=== PATIENT | male | born 1965 | race Caucasian/White ===

== ENCOUNTER 2019-05-28 20:58 | Emergency (ER) | payer OTHER ==
[~2019-05-28] VITALS: Ht 188 cm; Wt 116.1 kg
--- OUTSIDE RECORDS SUMMARY | 2019-05-28 21:07 | XMS REPORT ---
Author [facility] Address Unknown Phone Unavailable Care Team Providers Care Instructional Systems Specialist Name Role Phone ADRIANA HERNANDEZ Unavailable Unavailable BROOKS AMES Unavailable Unavailable OLI CASTELAN Unavailable Unavailable ИРИНА LOPEZ Unavailable Unavailable Chiquita GANDARA Unavailable Unavailable JUAN BHAT Unavailable Unavailable TENORIOTOD KUMAR Unavailable Unavailable CRISTINATROY BANDAR Unavailable Unavailable SHELLEY, ADEDOYIN Unavailable Unavailable THERON, ARIF Unavailable Unavailable JEANETTE DE LA GARZA Unavailable Unavailable Emeli NORTH Unavailable Unavailable RACHEL CORREA Unavailable Unavailable CATHERINE FRANCISCO Unavailable Unavailable Payers Payer Name Policy Type Policy Number Effective Date Expiration Date Problems This patient has no known problems. Allergies, Adverse Reactions, Alerts Allergy Name Allergy Type Status Severity Reaction(s) Onset Date Inactive Date Treating Clinician Comments No Known Allergies DA Active U 2018-04-07 00:00:00 No Known Allergies DA Active U 2018-01-18 00:00:00 Medications This patient has no known medications. Results Test Description Test Time Test Comments Text Results Atomic Results Result Comments BODY FLUID CELL COUNT WITH DIFFERENTIAL 2019-05-26 13:34:00 APPEARANCE FLUID (BEAKER) (test zvwi=277) Hazy Clear COLOR FLUID (BEAKER) (test eavz=230) Yellow Colorless, Straw RBC FLUID (BEAKER) (test sixy=353) 458 /cu mm <=1 ADJUSTED WBC FLUID (BEAKER) (test cevq=4574) 30 /cu mm <=5 LINING CELLS (BEAKER) (test odgn=3990) 0 /cu mm <=1 NEUTROPHILS FLUID (BEAKER) (test vtkw=3328) 2 % LYMPHS FLUID (BEAKER) (test topz=530) 15 % MONO/MACROPHAGE FLUID (BEAKER) (test majm=538) 83 % EOSINOPHILS FLUID (BEAKER) (test jupq=593) 0 % BASO FLUID (BEAKER) (test pqcz=724) 0 % CONTAINER BODY FLUID (BEAKER) (test gsez=0858) EDTA Tube U/S, [id number] 10:31:00LIMIT PARACENTESIS to 5 LITERSAdminister 200 mL of albumin 25% (50 grams) IV x1 after paracentesis if 3 or more liters removed.Send ascitic fluid for cell count and differential.Labs to be ordered:-> Other (please add comment)Reason for Exam:->AscitesFINAL REPORT Ultrasound guided paracentesis. Clinical History: Ascites. Sedation: None. Taxi Driver: Anabel Thornton PA-C Turner And Former Automatic: None. Estimated Blood Loss: < 1 cc. Specimen: 5000 cc of clear yellow fluid, samples sent to laboratory. Technique: Informed consent was obtained. The risks of pain, bleeding, infection, bowel perforation, injury to adjacent structures, and adverse medication reactions were discussed with the patient. After informed consent was obtained, the patient's abdomen was scanned. The RLQ of the abdomen was selected for paracentesis. After the largest fluid pocket area was marked, and the anterior abdominal wall was evaluated with color Doppler to exclude presence of blood vessels traversing the area, the skin was prepped and draped in the usual sterile manner. After local anesthesia was achieved with 2% lidocaine, a 5 Maldivian one-step catheter was advanced into the peritoneal cavity under ultrasound guidance. After completion of drainage, the catheter was removed. There was no evidence of complication. Impression:Successful ultrasound guided paracentesis. Signed: Timbo Reilly Verified Date/Time: 05/26/2019 10:31:09 Reading Location: [address] Ultrasound Reading Room FLUID CELL COUNT WITH [id number] 14:02:00* Test Item Value Reference Range Comments APPEARANCE FLUID (BEAKER) (test jlxf=017) Hazy Clear COLOR FLUID (BEAKER) (test wxuq=804) Yellow Colorless, Straw RBC FLUID (BEAKER) (test eiiz=057) 2210 /cu mm <=1 ADJUSTED WBC FLUID (BEAKER) (test haut=6190) 83 /cu mm <=5 LINING CELLS (BEAKER) (test mcmu=2784) 2 /cu mm <=1 NEUTROPHILS FLUID (BEAKER) (test jrbe=2865) 4 % LYMPHS FLUID (BEAKER) (test ipri=953) 16 % MONO/MACROPHAGE FLUID (BEAKER) (test gyqn=849) 80 % EOSINOPHILS FLUID (BEAKER) (test dvcy=779) 0 % BASO FLUID (BEAKER) (test kefx=856) 0 % CONTAINER BODY FLUID (BEAKER) (test xqze=7179) EDTA Tube U/S, [id number] 11:16:00LIMIT PARACENTESIS to 5 LITERSAdminister 200 mL of albumin 25% (50 grams) IV x1 after paracentesis if 3 or more liters removed.Send ascitic fluid for cell count and differential.Labs to be ordered:-> Other (please add comment)Reason for Exam:->AscitesFINAL REPORT Ultrasound guided paracentesis. Clinical History: Ascites. Sedation: None. Taxi Driver: Anabel Thornton PA-C Turner And Former Automatic: None. Estimated Blood Loss: < 1 cc. Specimen: 5000 cc of clear yellow fluid, samples sent to laboratory. Technique: Informed consent was obtained. The risks of pain, bleeding, infection, bowel perforation, injury to adjacent structures, and adverse medication reactions were discussed with the patient. After informed consent was obtained, the patient's abdomen was scanned. The RLQ of the abdomen was selected for paracentesis. After the largest fluid pocket area was marked, and the anterior abdominal wall was evaluated with color Doppler to exclude presence of blood vessels traversing the area, the skin was prepped and draped in the usual sterile manner. After local anesthesia was achieved with 2% lidocaine, a 5 Maldivian one-step catheter was advanced into the peritoneal cavity under ultrasound guidance. After completion of drainage, the catheter was removed. There was no evidence of complication. Impression:Successful ultrasound guided paracentesis. Signed: David Hernandesort Verified Date/Time: 05/23/2019 11:16:28 Reading Location: [address] Ultrasound Reading Room U/S, [id number] 13:40:00LIMIT PARACENTESIS to 5 LITERSAdminister 200 mL of albumin 25% (50 grams) IV x1 after paracentesis if 3 or more liters removed.Send ascitic fluid for cell count and differential.Labs to be ordered:-> Other (please add comment)Reason for Exam:->Malignant NeoplasmFINAL REPORT Ultrasound guided paracentesis. Clinical History: Ascites. Sedation: None. Operators: This procedure was performed by LAURENCE Colin under direct supervision of Dionicio Song M.D. Estimated Blood Loss: < 1 cc. Specimen: 5000 cc of cloudy yellow fluid, samples sent to laboratory. Technique: Informed consent was obtained. The risks of pain, bleeding, infection, bowel perforation, injury to adjacent structures, and adverse medication reactions were discussed with the patient. After informed consent was obtained, the patient's abdomen was scanned. The RLQ of the abdomen was selected for paracentesis. After the largest fluid pocket area was marked, and the anterior abdominal wall was evaluated with color Doppler to exclude presence of blood vessels traversing the area, the skin was prepped and draped in the usual sterile manner. After local anesthesia was achieved with 2% lidocaine, a 5 Maldivian one-step catheter was advanced into the peritoneal cavity under ultrasound guidance. After completion of drainage, the catheter was removed. There was no evidence of complication. Impression:Successful ultrasound guided paracentesis. Signed: Dionicio Song MDReport Verified Date/Time: 05/19/2019 13:40:25 Reading Location: [address] Ultrasound Reading Room FLUID CELL COUNT WITH [id number] 13:32:00* Test Item Value Reference Range Comments APPEARANCE FLUID (BEAKER) (test hobr=623) Slightly Cloudy Clear COLOR FLUID (BEAKER) (test dbgp=196) [place] Colorless, Straw RBC FLUID (BEAKER) (test hham=988) 5000 /cu mm <=1 ADJUSTED WBC FLUID (BEAKER) (test gsds=3177) 88 /cu mm <=5 LINING CELLS (BEAKER) (test lpyi=2611) 0 /cu mm <=1 NEUTROPHILS FLUID (BEAKER) (test ctuz=1819) 0 % LYMPHS FLUID (BEAKER) (test ffvq=453) 24 % MONO/MACROPHAGE FLUID (BEAKER) (test wqsn=508) 75 % EOSINOPHILS FLUID (BEAKER) (test zdof=123) 0 % BASO FLUID (BEAKER) (test bbdm=227) 1 % CONTAINER BODY FLUID (BEAKER) (test sxgo=0103) EDTA Tube U/S, [id number] 00:41:00LIMIT PARACENTESIS to 5 LITERSAdminister 200 mL of albumin 25% (50 grams) IV x1 after paracentesis if 3 or more liters removed.Send ascitic fluid for cell count and differential.Labs to be ordered:-> Other (please add comment)Reason for Exam:->Malignant NeoplasmFINAL REPORT Ultrasound guided paracentesis Clinical History: Ascites. Sedation: None. Taxi Driver: Sharon Troy PA-C Supervising Physician: Timothy Kelly MD Turner And Former Automatic: None. Estimated Blood Loss: < 1 mL. Specimen: 5000 mL of serosanguineous fluid, samples sent to laboratory. Technique: Informed consent was obtained. The risks of pain, bleeding, infection, bowel perforation, injury to adjacent structures, and adverse medication reactions were discussed with the patient. After informed consent was obtained, the patient's abdomen was scanned. The right lower quadrant of the abdomen was selected for paracentesis. After the largest fluid pocket area was marked, and the anterior abdominal wall was evaluated with color Doppler to exclude presence of blood vessels traversing the area, the skin was prepped and draped in the usual sterile manner. After local anesthesia was achieved with lidocaine, a 5 Maldivian one-step catheter was advanced into the peritoneal cavity under ultrasound guidance. After completion of drainage, the catheter was removed. There was no evidence of complication. This procedure was performed by LAURENCE Condon under direct supervision of Timothy Kelly M.D. Impression:Successful ultrasound guided paracentesis. Signed: Timothy Kelly MDReport Verified Date/Time: 05/17/2019 00:41:29 Reading Location: [facility] [id number] Ultrasound Reading Room U/S, [id number] 00:39:00LIMIT PARACENTESIS to 5 LITERSAdminister 200 mL of albumin 25% (50 grams) IV x1 after paracentesis if 3 or more liters removed.Send ascitic fluid for cell count and differential.Labs to be ordered:->Other (please add comment)Reason for Exam:->Malignant Neoplasm FINAL REPORT Ultrasound guided paracentesis. Clinical His tory: Ascites. Sedation: None. Taxi Driver: Anabel Gu Turner And Former Automatic: None. Estimated Blood Loss: < 1 cc. Specimen: 5000 cc of clear orange fluid, samples sent to laboratory. Technique: Informed consent was obtained. The risks of pain, bleeding, infection, bowel perforation, injury to adjacent structures, and adverse medication reactions were discussed with the patient. After informed consent was obtained, the patient's abdomen was scanned. The RLQ of the abdomen was selected for paracentesis. After the largest fluid pocket area was marked, and the anterior abdominal wall was evaluated with color Doppler to exclude presence of blood vessels traversing the area, the skin was prepped and draped in the usual sterile manner. After local anesthesia was achieved with 2% lidocaine, a 4 Maldivian one-step catheter was advanced into the peritoneal cavity under ultrasound guidance. After completion of drainage, the catheter was removed. There was no evidence of complication. This procedure was performed by LAURENCE Colin under direct supervision of Timothy Kelly M.D. Impression:Successful ultrasound guided paracentesis. Si gned: Timothy Kelly MDReport Verified Date/Time: 05/17/2019 00:39:11 Reading Location: [place] [id number] Ultrasound Reading Room FLUID CELL COUNT WITH [id number] 11:32:00* Test Item Value Reference Range Comments APPEARANCE FLUID (BEAKER) (test ifol=428) Hazy Clear COLOR FLUID (BEAKER) (test ohhl=218) Yellow Colorless, Straw RBC FLUID (BEAKER) (test wpbx=019) 8000 /cu mm <=1 ADJUSTED WBC FLUID (BEAKER) (test ynjd=3578) 51 /cu mm <=5 LINING CELLS (BEAKER) (test xkwx=5147) 7 /cu mm <=1 NEUTROPHILS FLUID (BEAKER) (test sewr=6293) 5 % LYMPHS FLUID (BEAKER) (test uxrp=405) 33 % MONO/MACROPHAGE FLUID (BEAKER) (test lken=127) 61 % EOSINOPHILS FLUID (BEAKER) (test tycz=066) 1 % BASO FLUID (BEAKER) (test jccb=417) 0 % CONTAINER BODY FLUID (BEAKER) (test lvge=0810) EDTA Tube BODY FLUID CELL COUNT WITH [id number] 14:54:00* Test Item Value Reference Range Comments APPEARANCE FLUID (BEAKER) (test jzpg=811) Cloudy Clear COLOR FLUID (BEAKER) (test gzzi=835) Red Colorless, Straw RBC FLUID (BEAKER) (test kmfm=805) 45758 /cu mm <=1 ADJUSTED WBC FLUID (BEAKER) (test rzyj=2910) 116 /cu mm <=5 LINING CELLS (BEAKER) (test svlu=2674) 2 /cu mm <=1 NEUTROPHILS FLUID (BEAKER) (test dqrv=4127) 1 % LYMPHS FLUID (BEAKER) (test erwa=816) 19 % MONO/MACROPHAGE FLUID (BEAKER) (test zrlg=522) 80 % EOSINOPHILS FLUID (BEAKER) (test qvnb=501) 0 % BASO FLUID (BEAKER) (test fctq=852) 0 % CONTAINER BODY FLUID (BEAKER) (test ywxp=5200) EDTA Tube BODY FLUID CULTURE + GRAM [id number] 10:44:00* Test Item Value Reference Range Comments CULTURE (BEAKER) (test kuyk=2539) No growth GRAM STAIN RESULT (BEAKER) (test jfwn=1356) <1+ White blood cells seen GRAM STAIN RESULT (BEAKER) (test aatl=40111) No organisms seen BODY FLUID CELL COUNT WITH [id number] 14:48:00* Test Item Value Reference Range Comments APPEARANCE FLUID (BEAKER) (test tzrj=054) Cloudy Clear COLOR FLUID (BEAKER) (test egsz=994) Red Colorless, Straw RBC FLUID (BEAKER) (test cnrd=364) 55066 /cu mm <=1 ADJUSTED WBC FLUID (BEAKER) (test afjx=3110) 61 /cu mm <=5 LINING CELLS (BEAKER) (test ivev=4267) 0 /cu mm <=1 NEUTROPHILS FLUID (BEAKER) (test gaod=7418) 2 % LYMPHS FLUID (BEAKER) (test bspd=120) 56 % MONO/MACROPHAGE FLUID (BEAKER) (test muoz=584) 42 % EOSINOPHILS FLUID (BEAKER) (test fyqe=669) 0 % BASO FLUID (BEAKER) (test xljy=302) 0 % CONTAINER BODY FLUID (BEAKER) (test pdzo=8543) EDTA Tube U/S, [id number] 14:01:00LIMIT PARACENTESIS to 5 LITERSAdminister 200 mL of albumin 25% (50 grams) IV x1 after paracentesis if 3 or more liters removed.Send ascitic fluid for cell count and differential.Labs to be ordered:-> Other (please add comment)Reason for Exam:->Malignant NeoplasmFINAL REPORT Ultrasound guided paracentesis. Clinical History: Ascites. Sedation: None. Taxi Driver: Anabel Thornton PA-C Turner And Former Automatic: None. Estimated Blood Loss: < 1 cc. Specimen: 5000 cc of samreen fluid, samples sent to laboratory. Technique: Informed consent was obtained. The risks of pain, bleeding, infection, bowel perforation, injury to adjacent structures, and adverse medication reactions were discussed with the patient. After informed consent was obtained, the patient's abdomen was scanned. The RLQ of the abdomen was selected for paracentesis. After the largest fluid pocket area was marked, and the anterior abdominal wall was evaluated with color Doppler to exclude presence of blood vessels traversing the area, the skin was prepped and draped in the usual sterile manner. After local anesthesia was achieved with 2% lidocaine, a 5 Maldivian one-step catheter was advanced into the peritoneal cavity under ultrasound guidance. After completion of drainage, the catheter was removed. There was no evidence of complication. Im pression:Successful ultrasound guided paracentesis. Signed: Damion Holtep ort Verified Date/Time: 05/09/2019 14:01:34 Reading Location: [address] Reading Room Electronically signed by: DAMION HOLT M.D. on 05/09 02:01 PM BLOOD [id number] 19:01:00* Test Item Value Reference Range Comments CULTURE (BEAKER) (test hekm=1265) No growth in 5 days BLOOD [id number] 19:01:00* Test Item Value Reference Range Comments CULTURE (BEAKER) (test nusq=6054) No growth in 5 days [id number] 19:17:00Medical Cytology Report Case: [id number] Authorizing Provider: Osiris Rangel MD Collected: 05/06/2019 1543 Ordering Location: [address] Received: 05/07/2019 0824 Service Pathologist: Yesica John MD Specimen: Peritoneal Fluid PERITONEAL FLUID (CYTOSPINS): - NEGATIVE FOR MALIGNANCY Signing Pathologist Direct Phone Line: [phone] signed by Yesica John MD on 05/07/2019 at 7:17 [id number], Hep BPERITONEAL [id number] mls bloody; 4 cytospinsCollected: [id number]: [id number] [facility], Department of Pathology, [address] [place] [address], [facility], [address] [place] [address], [facility], [facility], [address] [place] [address], J/S, [id number] 08:35:00Labs to be ordered:->CytologyLabs to be ordered:->Body Fluid Culture (w/Gram Stain, C\\T\\S)Labs to be ordered:->Glucose+LDH+ProteinReason for exam:-> therapeuticFINAL REPORT Ultrasound guided paracentesis. Clinical History: Ascites. Sedation: None. Taxi Driver: Anabel Thornton PA-C Turner And Former Automatic: None. Estimated Blood Loss: < 1 cc. Specimen: 5000 cc of clear yellow fluid, samples sent to laboratory. Technique: Informed consent was obtained. The risks of pain, bleeding, infection, bowel perforation, injury to adjacent structures, and adverse medication reactions were discussed with the patient. After informed consent was obtained, the mila bird's abdomen was scanned. The RLQ of the abdomen was selected for paracente sis. After the largest fluid pocket area was marked, and the anterior abdominal wall was evaluated with color Doppler to exclude presence of blood vessels gurmeet ersing the area, the skin was prepped and draped in the usual sterile manner. A fter local anesthesia was achieved with 2% lidocaine, a 5 Maldivian one-step cathet er was advanced into the peritoneal cavity under ultrasound guidance. After comp letion of drainage, the catheter was removed. There was no evidence of complicat ion. Impression:Successful ultrasound guided paracentesis. Signed: David Hernandes MDReport Verified Date/Time: 05/07/2019 08:35:06 Reading Location: [address] Ultrasound Reading Room FLUID CELL COUNT WITH [id number] 19:43:00* Test Item Value Reference Range Comments APPEARANCE FLUID (BEAKER) (test dmrr=781) Bloody Clear COLOR FLUID (BEAKER) (test dhqo=139) Red Colorless, Straw RBC FLUID (BEAKER) (test vsdr=196) 18142 /cu mm <=1 ADJUSTED WBC FLUID (BEAKER) (test pozv=9315) 235 /cu mm <=5 LINING CELLS (BEAKER) (test zcnm=6364) 0 /cu mm <=1 NEUTROPHILS FLUID (BEAKER) (test vuev=3110) 5 % LYMPHS FLUID (BEAKER) (test poqa=663) 11 % MONO/MACROPHAGE FLUID (BEAKER) (test ihya=605) 83 % EOSINOPHILS FLUID (BEAKER) (test fxfe=204) 1 % BASO FLUID (BEAKER) (test fqkq=111) 0 % CONTAINER BODY FLUID (BEAKER) (test ybnr=6149) EDTA Tube SODIUM, RANDOM [id number] 17:19:00* Test Item Value Reference Range Comments SODIUM URINE (BEAKER) (test dtmv=525) < meq/L Reference Range: No NormalsCREATININE, RANDOM [id number] 17:17:00* Test Item Value Reference Range Comments CREATININE URINE (BEAKER) (test tplu=489) 68.5 mg/dL Reference Range: No NormalsU/S, ABDOMINAL, WITH [id number] 17:07:00Reason for exam:->r/o PVTFINAL REPORT HISTORY : Cirrhosis COMPARISON : CT abdomen/pelvis without contrast from 05/03/2019, abdominal ultrasound from 12/13/2018 COMMENT :Complete ultrasound examination of the abdomen with color Doppler and spectral evaluation of the abdominal vasculature was performed. The pancreas is not well-visualized secondary to prominent adjacent bowel gas. The liver measures 15.6 cm and demonstrates a nodular contour compatible with patient's history of cirrhosis. The hepatic parenchyma is heterogeneous. No focal hepatic abnormality is identified. The gallbladder appears contracted. There is no evidence for shadowing stones, gallbladder wall thickening, or pericholecystic fluid. There is no intrahepatic biliary ductal dilatation. There is a prominence of the common bile duct measuring up to 9 mm, unchanged from prior examinations. The spleen is enlarged measuring 14.2 cm in length and demonstrates unremarkable sonographic appearance. The kidneys are normal in size measuring 9.9 cm in length on the right and 12.3 cm in length on the left. Cortical thickness and echogenicity are within normal limits. There is no evidence for solid renal mass, hydronephrosis, or shadowing calculi. There is a small volume of residual ascites present status post recent paracentesis. Vascular:The main portal vein is patent with antegrade flow and diameter of 1.5 cm. Peak systolic velocity is 21.1 cm/s. The right left portal veins are patent with antegrade flow. The proper hepatic artery is patent with resistive index of zero right left hepatic arteries are patent with resistive indices of 0.7 bilaterally. The IVC is patent and unremarkable. The middle, right, left hepatic veins are patent and unremarkable. The visualized portions of the splenic artery and vein are patent. The aorta tapers normally. IMPRESSION : 1. Sonographic findings compatible with cirrhosis and sequela of portal hypertension. No focal hepatic abnormality identified. 2. Patent hepatic vasculature. 3. Small volume residual ascites remaining status post recent paracentesis. Signed: Dionicio Song MDReport Verified Date/Time: 05/06/2019 17:07:25 Reading Location: [address] Radiology Reading Room FLUID CULTURE + GRAM [id number] 11:14:00* Test Item Value Reference Range Comments CULTURE (BEAKER) (test ullb=1588) No growth GRAM STAIN RESULT (BEAKER) (test hbtl=7507) <1+ White blood cells seen GRAM STAIN RESULT (BEAKER) (test ubty=13491) No organisms seen BODY FLUID CULTURE + GRAM [id number] 11:13:00* Test Item Value Reference Range Comments CULTURE (BEAKER) (test cimv=0145) No growth GRAM STAIN RESULT (BEAKER) (test mjji=2385) <1+ White blood cells seen GRAM STAIN RESULT (BEAKER) (test rczd=20727) No organisms seen HEPATITIS B PCR, [id number] 09:38:00* Test Item Value Reference Range Comments HBV RESULT COMPONENT (BEAKER) (test qtuy=4617) Less than 20 IU/mL HBV DNA detected HBV DNA not detected This test uses a Real-Time Polymerase Chain Reaction (RT-PCR) methodology and wa s performed using [employer] AmpliPrep/W[employer]LEY TaqMan HBV Test, v2.0 ([employer]Reportable range for this assay is 20 - 170,000,000 IU per mL ( 1.30 - 8.23 Log IU/mL).BASIC METABOLIC [id number] 05:18:00* Test Item Value Reference Range Comments SODIUM (BEAKER) (test qifb=887) 130 meq/L 136-145 POTASSIUM (BEAKER) (test xpqp=535) 3.8 meq/L 3.5-5.1 CHLORIDE (BEAKER) (test asgd=358) 101 meq/L 98-107 CO2 (BEAKER) (test ccbf=592) 21 meq/L 22-29 BLOOD UREA NITROGEN (BEAKER) (test tnxo=913) 74 mg/dL 7-21 CREATININE (BEAKER) (test sfry=539) 3.33 mg/dL 0.57-1.25 GLUCOSE RANDOM (BEAKER) (test fijs=454) 156 mg/dL 70-105 CALCIUM (BEAKER) (test mttl=602) 8.1 mg/dL 8.4-10.2 EGFR (BEAKER) (test erib=9072) 20 mL/min/1.73 sq m ESTIMATED GFR IS NOT ACCURATE CREATININE CLEARANCE IN PREDICTING GLOMERULAR FILTRATION RATE. ESTIMATED GFR IS NOT APPLICABLE FOR DIALYSIS PATIENTS. CBC W/PLT COUNT & AUTO [id number] 05:17:00* Test Item Value Reference Range Comments WHITE BLOOD CELL COUNT (BEAKER) (test iqnt=820) 3.1 K/ L 3.5-10.5 RED BLOOD CELL COUNT (BEAKER) (test wbjn=689) 2.19 M/ L 4.63-6.08 HEMOGLOBIN (BEAKER) (test kizd=416) 6.8 GM/DL 13.7-17.5 HEMATOCRIT (BEAKER) (test dkhe=315) 20.5 % 40.1-51.0 MEAN CORPUSCULAR VOLUME (BEAKER) (test dgie=806) 93.6 fL 79.0-92.2 MEAN CORPUSCULAR HEMOGLOBIN (BEAKER) (test fvam=969) 31.1 pg 25.7-32.2 MEAN CORPUSCULAR HEMOGLOBIN CONC (BEAKER) (test uqua=185) 33.2 GM/DL 32.3-36.5 RED CELL DISTRIBUTION WIDTH (BEAKER) (test auzu=417) 15.9 % 11.6-14.4 PLATELET COUNT (BEAKER) (test zkhq=590) 56 K/CU MM 150-450 MEAN PLATELET VOLUME (BEAKER) (test xsjo=971) 9.9 fL 9.4-12.4 NUCLEATED RED BLOOD CELLS (BEAKER) (test qjqe=670) 0 /100 WBC 0-0 NEUTROPHILS RELATIVE PERCENT (BEAKER) (test nawo=624) 75 % LYMPHOCYTES RELATIVE PERCENT (BEAKER) (test hfte=385) 8 % MONOCYTES RELATIVE PERCENT (BEAKER) (test itfk=972) 9 % EOSINOPHILS RELATIVE PERCENT (BEAKER) (test tfrp=051) 7 % BASOPHILS RELATIVE PERCENT (BEAKER) (test yibe=131) 0 % NEUTROPHILS ABSOLUTE COUNT (BEAKER) (test wsph=367) 2.29 K/ L 1.78-5.38 LYMPHOCYTES ABSOLUTE COUNT (BEAKER) (test zfve=899) 0.25 K/ L 1.32-3.57 MONOCYTES ABSOLUTE COUNT (BEAKER) (test zmze=855) 0.27 K/ L 0.30-0.82 EOSINOPHILS ABSOLUTE COUNT (BEAKER) (test gnit=981) 0.22 K/ L 0.04-0.54 BASOPHILS ABSOLUTE COUNT (BEAKER) (test utvj=249) 0.01 K/ L 0.01-0.08 IMMATURE GRANULOCYTES-RELATIVE PERCENT (BEAKER) (test expt=8561) 1 % 0-1 [id number] 05:12:00* Test Item Value Reference Range Comments MAGNESIUM (BEAKER) (test wgwq=380) 2.3 mg/dL 1.6-2.6 HEPATIC FUNCTION [id number] 05:12:00* Test Item Value Reference Range Comments TOTAL PROTEIN (BEAKER) (test iqwl=226) 6.0 gm/dL 6.0-8.3 ALBUMIN (BEAKER) (test ftok=8971) 3.3 g/dL 3.5-5.0 BILIRUBIN TOTAL (BEAKER) (test zwhk=364) 0.8 mg/dL 0.2-1.2 BILIRUBIN DIRECT (BEAKER) (test qdrk=408) 0.6 mg/dL 0.1-0.5 ALKALINE PHOSPHATASE (BEAKER) (test rjgu=592) 161 U/L 40-150 AST (SGOT) (BEAKER) (test dnss=873) 17 U/L 5-34 ALT (SGPT) (BEAKER) (test cvwu=574) 12 U/L 6-55 PT/[id number] 04:57:00* Test Item Value Reference Range Comments PROTIME (BEAKER) (test hqxx=896) 15.3 seconds 11.9-14.2 INR (BEAKER) (test nytn=995) 1.3 <=5.9 PARTIAL THROMBOPLASTIN TIME (BEAKER) (test eowp=122) 36.1 seconds 22.5-36.0 Effective 11/20/2018: PT Reference Range ChangeNew: 11.9-14.2 Previous: 11.7-14. 7RECOMMENDED COUMADIN/WARFARIN INR THERAPY RANGESSTANDARD DOSE: 2.0-3.0 Include s: PROPHYLAXIS for venous thrombosis, systemic embolization; TREATMENT for venou s thrombosis and/or pulmonary embolus.HIGH RISK: Target INR is 2.5-3.5 for patie nts wiht mechanical heart valves.PROTHROMBIN TIME/[id number] 04:56:00* Test Item Value Reference Range Comments PROTIME (BEAKER) (test yuqa=359) 15.3 seconds 11.9-14.2 INR (BEAKER) (test nkrx=510) 1.3 <=5.9 Effective 11/20/2018: PT Reference Range ChangeNew: 11.9-14.2 Previous: 11.7-14. 7RECOMMENDED COUMADIN/WARFARIN INR THERAPY RANGESSTANDARD DOSE: 2.0-3.0 Include s: PROPHYLAXIS for venous thrombosis, systemic embolization; TREATMENT for venou s thrombosis and/or pulmonary embolus.HIGH RISK: Target INR is 2.5-3.5 for patie nts wiht mechanical heart valves.FUNGUS CULTURE + [id number] 16:35:00* Test Item Value Reference Range Comments CULTURE (BEAKER) (test pglq=4330) No fungus isolated in 28 days FUNGUS SMEAR (BEAKER) (test nltg=3020) No fungi seen CBC W/PLT COUNT & AUTO [id number] 06:05:00* Test Item Value Reference Range Comments WHITE BLOOD CELL COUNT (BEAKER) (test ynmb=781) 3.1 K/ L 3.5-10.5 RED BLOOD CELL COUNT (BEAKER) (test aukj=184) 2.38 M/ L 4.63-6.08 HEMOGLOBIN (BEAKER) (test wzld=545) 7.3 GM/DL 13.7-17.5 HEMATOCRIT (BEAKER) (test rqko=406) 21.8 % 40.1-51.0 MEAN CORPUSCULAR VOLUME (BEAKER) (test zmjb=800) 91.6 fL 79.0-92.2 MEAN CORPUSCULAR HEMOGLOBIN (BEAKER) (test hjrm=676) 30.7 pg 25.7-32.2 MEAN CORPUSCULAR HEMOGLOBIN CONC (BEAKER) (test nafp=603) 33.5 GM/DL 32.3-36.5 RED CELL DISTRIBUTION WIDTH (BEAKER) (test xivc=909) 16.0 % 11.6-14.4 PLATELET COUNT (BEAKER) (test xmzf=823) 62 K/CU MM 150-450 MEAN PLATELET VOLUME (BEAKER) (test nfvi=436) 9.8 fL 9.4-12.4 NUCLEATED RED BLOOD CELLS (BEAKER) (test xuyg=007) 0 /100 WBC 0-0 NEUTROPHILS RELATIVE PERCENT (BEAKER) (test upaj=301) 77 % LYMPHOCYTES RELATIVE PERCENT (BEAKER) (test hatw=388) 9 % MONOCYTES RELATIVE PERCENT (BEAKER) (test deey=257) 9 % EOSINOPHILS RELATIVE PERCENT (BEAKER) (test ffhl=355) 4 % BASOPHILS RELATIVE PERCENT (BEAKER) (test favv=793) 1 % NEUTROPHILS ABSOLUTE COUNT (BEAKER) (test cbhg=093) 2.38 K/ L 1.78-5.38 LYMPHOCYTES ABSOLUTE COUNT (BEAKER) (test uwcl=027) 0.28 K/ L 1.32-3.57 MONOCYTES ABSOLUTE COUNT (BEAKER) (test nvpx=041) 0.28 K/ L 0.30-0.82 EOSINOPHILS ABSOLUTE COUNT (BEAKER) (test qydx=534) 0.13 K/ L 0.04-0.54 BASOPHILS ABSOLUTE COUNT (BEAKER) (test cpvd=619) 0.02 K/ L 0.01-0.08 IMMATURE GRANULOCYTES-RELATIVE PERCENT (BEAKER) (test hnis=0427) 0 % 0-1 BASIC METABOLIC [id number] 05:44:00* Test Item Value Reference Range Comments SODIUM (BEAKER) (test zjna=510) 134 meq/L 136-145 POTASSIUM (BEAKER) (test eztq=529) 3.6 meq/L 3.5-5.1 CHLORIDE (BEAKER) (test iprv=759) 103 meq/L 98-107 CO2 (BEAKER) (test ckna=627) 21 meq/L 22-29 BLOOD UREA NITROGEN (BEAKER) (test tgji=491) 70 mg/dL 7-21 CREATININE (BEAKER) (test bptw=194) 3.13 mg/dL 0.57-1.25 GLUCOSE RANDOM (BEAKER) (test yteb=754) 134 mg/dL 70-105 CALCIUM (BEAKER) (test dulb=167) 8.6 mg/dL 8.4-10.2 EGFR (BEAKER) (test vtkh=9315) 21 mL/min/1.73 sq m ESTIMATED GFR IS NOT ACCURATE CREATININE CLEARANCE IN PREDICTING GLOMERULAR FILTRATION RATE. ESTIMATED GFR IS NOT APPLICABLE FOR DIALYSIS PATIENTS. [id number] 05:40:00* Test Item Value Reference Range Comments MAGNESIUM (BEAKER) (test fvaz=786) 2.3 mg/dL 1.6-2.6 HEPATIC FUNCTION [id number] 05:40:00* Test Item Value Reference Range Comments TOTAL PROTEIN (BEAKER) (test ihjl=626) 6.3 gm/dL 6.0-8.3 ALBUMIN (BEAKER) (test eddt=6023) 3.6 g/dL 3.5-5.0 BILIRUBIN TOTAL (BEAKER) (test owio=133) 1.0 mg/dL 0.2-1.2 BILIRUBIN DIRECT (BEAKER) (test zamk=110) 0.6 mg/dL 0.1-0.5 ALKALINE PHOSPHATASE (BEAKER) (test dntj=864) 164 U/L 40-150 AST (SGOT) (BEAKER) (test vkif=690) 18 U/L 5-34 ALT (SGPT) (BEAKER) (test rseo=006) 12 U/L 6-55 HBSAG [id number] 22:12:00* Test Item Value Reference Range Comments HBSAG CONFIRMATION (BEAKER) (test rofo=0737) Confirmed Positive Unconfirmed, HBSAG Negative HEPATITIS B SURFACE [id number] 21:24:00* Test Item Value Reference Range Comments HEPATITIS B SURFACE ANTIGEN (2) (BEAKER) (test garr=9725) Reactive Nonreactive HEPATITIS B SURFACE [id number] 18:32:00* Test Item Value Reference Range Comments HEPATITIS B SURFACE ANTIBODY (BEAKER) (test zhlt=258) < mIU/mL <8.0 HEMOGLOBIN AND [id number] 15:40:00* Test Item Value Reference Range Comments HEMOGLOBIN (BEAKER) (test spdv=876) 7.1 GM/DL 13.7-17.5 HEMATOCRIT (BEAKER) (test htrh=243) 21.2 % 40.1-51.0 URINALYSIS W/ REFLEX URINE [id number] 15:38:00* Test Item Value Reference Range Comments COLOR (BEAKER) (test xubu=754) Yellow CLARITY (BEAKER) (test hnba=195) Clear SPECIFIC GRAVITY UA (BEAKER) (test wcqe=798) 1.013 1.001-1.035 PH UA (BEAKER) (test thks=928) 5.0 5.0-8.0 PROTEIN UA (BEAKER) (test utqt=771) Negative Negative GLUCOSE UA (BEAKER) (test hcbh=931) Negative Negative KETONES UA (BEAKER) (test trwc=420) Negative Negative BILIRUBIN UA (BEAKER) (test iqey=106) Negative Negative BLOOD UA (BEAKER) (test xmct=754) Negative Negative NITRITE UA (BEAKER) (test neou=706) Negative Negative LEUKOCYTE ESTERASE UA (BEAKER) (test vntj=316) Negative Negative UROBILINOGEN UA (BEAKER) (test hohp=511) 0.2 mg/dL 0.2-1.0 RBC UA (BEAKER) (test ahfh=565) 0 /HPF WBC UA (BEAKER) (test ohue=679) 1 /HPF SQUAMOUS EPITHELIAL (BEAKER) (test umdg=188) < /HPF HYALINE CASTS (BEAKER) (test dwfu=929) 3 /LPF CALCIUM OXALATE CRYSTALS (BEAKER) (test skos=089) Rare SOURCE(BEAKER) (test bagq=2888) BASIC METABOLIC [id number] 06:17:00* Test Item Value Reference Range Comments SODIUM (BEAKER) (test cgez=120) 138 meq/L 136-145 POTASSIUM (BEAKER) (test hjwd=173) 3.1 meq/L 3.5-5.1 CHLORIDE (BEAKER) (test rcbx=727) 107 meq/L 98-107 CO2 (BEAKER) (test gkon=791) 17 meq/L 22-29 BLOOD UREA NITROGEN (BEAKER) (test uesq=567) 79 mg/dL 7-21 CREATININE (BEAKER) (test wurq=338) 3.01 mg/dL 0.57-1.25 GLUCOSE RANDOM (BEAKER) (test jwqs=307) 140 mg/dL 70-105 CALCIUM (BEAKER) (test uupm=556) 8.4 mg/dL 8.4-10.2 EGFR (BEAKER) (test ajqw=8856) 22 mL/min/1.73 sq m ESTIMATED GFR IS NOT ACCURATE CREATININE CLEARANCE IN PREDICTING GLOMERULAR FILTRATION RATE. ESTIMATED GFR IS NOT APPLICABLE FOR DIALYSIS PATIENTS. [id number] 06:11:00* Test Item Value Reference Range Comments MAGNESIUM (BEAKER) (test azgs=783) 2.3 mg/dL 1.6-2.6 HEPATIC FUNCTION [id number] 06:11:00* Test Item Value Reference Range Comments TOTAL PROTEIN (BEAKER) (test rukr=839) 5.6 gm/dL 6.0-8.3 ALBUMIN (BEAKER) (test qeso=3158) 3.2 g/dL 3.5-5.0 BILIRUBIN TOTAL (BEAKER) (test srjy=117) 1.2 mg/dL 0.2-1.2 BILIRUBIN DIRECT (BEAKER) (test vifp=879) 0.7 mg/dL 0.1-0.5 ALKALINE PHOSPHATASE (BEAKER) (test wlsg=513) 138 U/L 40-150 AST (SGOT) (BEAKER) (test cdak=039) 18 U/L 5-34 ALT (SGPT) (BEAKER) (test bkje=283) 13 U/L 6-55 PROTHROMBIN TIME/[id number] 05:45:00* Test Item Value Reference Range Comments PROTIME (BEAKER) (test gtyj=305) 16.2 seconds 11.9-14.2 INR (BEAKER) (test xsru=276) 1.4 <=5.9 Effective 11/20/2018: PT Reference Range ChangeNew: 11.9-14.2 Previous: 11.7-14. 7RECOMMENDED COUMADIN/WARFARIN INR THERAPY RANGESSTANDARD DOSE: 2.0-3.0 Include s: PROPHYLAXIS for venous thrombosis, systemic embolization; TREATMENT for venou s thrombosis and/or pulmonary embolus.HIGH RISK: Target INR is 2.5-3.5 for patie nts wiht mechanical heart valves.CBC W/PLT COUNT & AUTO [id number] 05:44:00* Test Item Value Reference Range Comments WHITE BLOOD CELL COUNT (BEAKER) (test mbzw=701) 2.5 K/ L 3.5-10.5 RED BLOOD CELL COUNT (BEAKER) (test dpeh=565) 1.97 M/ L 4.63-6.08 HEMOGLOBIN (BEAKER) (test fqfl=792) 6.1 GM/DL 13.7-17.5 HEMATOCRIT (BEAKER) (test jsqd=847) 18.2 % 40.1-51.0 MEAN CORPUSCULAR VOLUME (BEAKER) (test yfmc=788) 92.4 fL 79.0-92.2 MEAN CORPUSCULAR HEMOGLOBIN (BEAKER) (test trkj=998) 31.0 pg 25.7-32.2 MEAN CORPUSCULAR HEMOGLOBIN CONC (BEAKER) (test edxg=983) 33.5 GM/DL 32.3-36.5 RED CELL DISTRIBUTION WIDTH (BEAKER) (test mmua=042) 15.4 % 11.6-14.4 PLATELET COUNT (BEAKER) (test ccal=200) 60 K/CU MM 150-450 MEAN PLATELET VOLUME (BEAKER) (test pfhu=079) 10.3 fL 9.4-12.4 NUCLEATED RED BLOOD CELLS (BEAKER) (test iwkp=364) 0 /100 WBC 0-0 NEUTROPHILS RELATIVE PERCENT (BEAKER) (test sits=377) 76 % LYMPHOCYTES RELATIVE PERCENT (BEAKER) (test kocw=872) 9 % MONOCYTES RELATIVE PERCENT (BEAKER) (test xdld=961) 10 % EOSINOPHILS RELATIVE PERCENT (BEAKER) (test owkt=938) 4 % BASOPHILS RELATIVE PERCENT (BEAKER) (test sxwx=792) 1 % NEUTROPHILS ABSOLUTE COUNT (BEAKER) (test bcgl=018) 1.91 K/ L 1.78-5.38 LYMPHOCYTES ABSOLUTE COUNT (BEAKER) (test tqgz=749) 0.22 K/ L 1.32-3.57 MONOCYTES ABSOLUTE COUNT (BEAKER) (test eehz=039) 0.26 K/ L 0.30-0.82 EOSINOPHILS ABSOLUTE COUNT (BEAKER) (test wwiz=035) 0.09 K/ L 0.04-0.54 BASOPHILS ABSOLUTE COUNT (BEAKER) (test utsh=963) 0.02 K/ L 0.01-0.08 IMMATURE GRANULOCYTES-RELATIVE PERCENT (BEAKER) (test bedl=6705) 0 % 0-1 HEMOGLOBIN AND [id number] 05:44:00* Test Item Value Reference Range Comments HEMOGLOBIN (BEAKER) (test zrbm=968) 6.1 GM/DL 13.7-17.5 HEMATOCRIT (BEAKER) (test tfhx=498) 18.2 % 40.1-51.0 Draw after PRBC transfusion completedCT, [id number] 20:12:00FINAL REPORT TECHNIQUE: CT of the abdomen and pelvis WITHOUT intravenous contrast and WITHOUT oral contrast. Dose modulation, iterative r econstruction, and/or weight-based adjustment of the mA/kV was utilized to reduc e the radiation dose to as low as reasonably achievable. INDICATION: Abdominal p ain. COMPARISON: 12/27/2018. FINDINGS: ABSENCE OF INTRAVENOUS CONTRAST DECREASES SENSITIVITY FOR DETECTION OF FOCAL LESIONS AND VASCULAR PATHOLOGY. LOWER THORAX: Right basilar bandlike subsegmental atelectasis. HEPATOBILIARY: Cirrhotic liver. No lesion identified. Gallbladder is unremarkable. No biliary ductal dilatati on.SPLEEN: No splenomegaly.PANCREAS: Spleen is 23.7 cm in length. ADRENALS: No a drenal nodules.KIDNEYS/URETERS: No hydronephrosis, stones, or exophytic masses. There are vascular calcifications within the renal pelvises.PELVIC ORGANS/BLADDE R: Unremarkable. PERITONEUM/RETROPERITONEUM: Large volume hypoattenuating free f luid in all four quadrants of the abdomen and pelvis.LYMPH NODES: No lymphadenop athy.VESSELS: Gastroesophageal varices are present. Moderate atherosclerosis. GI TRACT: No distention or wall thickening. Appendix is is normal. BONES AND SOFT TISSUES: Unremarkable. IMPRESSION:Cirrhotic liver with findings of portal hyper tension including marked splenomegaly and gastroesophageal varices. There is lar ge volume hypoattenuating ascites in all four quadrants. Otherwise, no evidence of an acute abnormality within the abdomen or pelvis. Signed: Oli Babb MDRep ort Verified Date/Time: 05/03/2019 20:12:26 MIN, BODY [id number] 19:59:00* Test Item Value Reference Range Comments ALBUMIN FLUID (BEAKER) (test jpvy=415) 1.1 gm/dL Reference Range: No Normals Assay performance has not been validated for this type of specimen.PROTEIN, BODY [id number] 19:48:00* Test Item Value Reference Range Comments PROTEIN FLUID (BEAKER) (test jwzp=700) 1.7 g/dL Absence of reference range indicates that normals have not been defined.Assay pe rformance has not been validated for this type of specimen.BODY FLUID CELL COUNT WITH [id number] 19:09:00* Test Item Value Reference Range Comments APPEARANCE FLUID (BEAKER) (test dzdm=454) Moderately Bloody Clear COLOR FLUID (BEAKER) (test fean=430) Red Colorless, Straw RBC FLUID (BEAKER) (test gkcd=657) 04504 /cu mm <=1 ADJUSTED WBC FLUID (BEAKER) (test xsvt=8159) 140 /cu mm <=5 LINING CELLS (BEAKER) (test dyzh=0730) 0 /cu mm <=1 NEUTROPHILS FLUID (BEAKER) (test xcef=4122) 43 % LYMPHS FLUID (BEAKER) (test ncva=028) 13 % MONO/MACROPHAGE FLUID (BEAKER) (test dmhd=696) 40 % EOSINOPHILS FLUID (BEAKER) (test siyq=813) 2 % BASO FLUID (BEAKER) (test tlyv=708) 2 % CONTAINER BODY FLUID (BEAKER) (test ujrj=2506) EDTA Tube U/S, [id number] 18:18:00Labs to be ordered:->Body Fluid Culture (w/Gram Stain, C\\T\\S)Labs to be ordered:->Other (please add comment)Reason for exam:->ALTERED MENTAL STATUSReason for exam:->ABDOMINAL PAINReason for exam:-> ASCITESReason for exam:->cell countFINAL REPORT Paracentesis dated 05/03/2019 Procedure: Ultrasound-guided paracentesis. Preprocedure diagnosis: Ascites Postprocedure diagnosis: Ascites Conscious sedation: None. Radiologist: Oli Engel M.D. [employer]: None Anesthesia: 1% Xylocaine mixed with sodium bicarbonate local anesthesia. Technique: After obtaining informed consent, ultrasound-guided paracentesis was performed under usual sterile technique. Using a 5 lao drainage catheter, puncture was made in the right lower quadrant abdomen. Approximately 3000 cc of serosanguineous fluid was removed. Patient tolerated the procedure well without complication. Complication: None Graft/Implant: None Estimated Blood Loss: None Impression: Ultrasound-guided paracentesis. Signed: Oli Engel MDReport Verified Date/Time: 05/03/2019 18:18:38 Reading Location: [facility] C0[facility], [place] Consult Reading Room , CHEST, 1 VIEW, NON [id number] 17:36:00Reason for exam:->ALTERED MENTAL STATUSReason for exam:->ABDOMINAL PAINReason for exam:->ASCITESShould this be performed at the bedside?->YesFINAL REPORT AP chest dated 05/03/2019 COMPARISON: April 07, 2019 Comment: Heart is normal in size. Pulmonary vasculature is unremarkable. Is subsegmental atelectasis is seen in the left lower lobe. The rest of the lungs are clear. No pulmonary infiltrate or pleural effusion. Impression: Left lower lobe subsegmental atelectasis. Signed: Oli Engel MDReport Verified Date/Time: 05/03/2019 17:36:48 Reading Location: [facility] C013W Consult Reading Room C METABOLIC [id number] 15:39:00* Test Item Value Reference Range Comments SODIUM (BEAKER) (test ezeg=540) 140 meq/L 136-145 POTASSIUM (BEAKER) (test iqar=275) 3.5 meq/L 3.5-5.1 CHLORIDE (BEAKER) (test rfja=555) 106 meq/L 98-107 CO2 (BEAKER) (test khad=302) 17 meq/L 22-29 BLOOD UREA NITROGEN (BEAKER) (test jopi=890) 78 mg/dL 7-21 CREATININE (BEAKER) (test mchk=381) 3.12 mg/dL 0.57-1.25 GLUCOSE RANDOM (BEAKER) (test asgy=408) 120 mg/dL 70-105 CALCIUM (BEAKER) (test xvds=866) 8.3 mg/dL 8.4-10.2 EGFR (BEAKER) (test dcpk=9427) 21 mL/min/1.73 sq m ESTIMATED GFR IS NOT ACCURATE CREATININE CLEARANCE IN PREDICTING GLOMERULAR FILTRATION RATE. ESTIMATED GFR IS NOT APPLICABLE FOR DIALYSIS PATIENTS. BODY FLUID CELL COUNT WITH [id number] 15:31:00* Test Item Value Reference Range Comments APPEARANCE FLUID (BEAKER) (test ydkr=349) Bloody Clear COLOR FLUID (BEAKER) (test usnk=715) Red Colorless, Straw RBC FLUID (BEAKER) (test zjmj=115) 460780 /cu mm <=1 ADJUSTED WBC FLUID (BEAKER) (test bkgc=2273) 350 /cu mm <=5 LINING CELLS (BEAKER) (test qymn=2366) 0 /cu mm <=1 NEUTROPHILS FLUID (BEAKER) (test cuqx=0460) 76 % LYMPHS FLUID (BEAKER) (test knjf=356) 14 % MONO/MACROPHAGE FLUID (BEAKER) (test ujps=733) 9 % EOSINOPHILS FLUID (BEAKER) (test mxem=731) 1 % BASO FLUID (BEAKER) (test gscu=824) 0 % CONTAINER BODY FLUID (BEAKER) (test yymd=1369) EDTA Tube [id number] 15:07:00* Test Item Value Reference Range Comments MAGNESIUM (BEAKER) (test pxnh=718) 2.4 mg/dL 1.6-2.6 HEPATIC FUNCTION [id number] 15:07:00* Test Item Value Reference Range Comments TOTAL PROTEIN (BEAKER) (test mool=936) 6.0 gm/dL 6.0-8.3 ALBUMIN (BEAKER) (test bctg=8639) 3.3 g/dL 3.5-5.0 BILIRUBIN TOTAL (BEAKER) (test izyb=883) 1.0 mg/dL 0.2-1.2 BILIRUBIN DIRECT (BEAKER) (test gwnw=104) 0.6 mg/dL 0.1-0.5 ALKALINE PHOSPHATASE (BEAKER) (test bsrx=180) 173 U/L 40-150 AST (SGOT) (BEAKER) (test xxtk=909) 20 U/L 5-34 ALT (SGPT) (BEAKER) (test tldr=333) 14 U/L 6-55 LACTIC ACID, [id number] 15:02:00* Test Item Value Reference Range Comments LACTATE BLOOD VENOUS (2) (BEAKER) (test rkum=1694) 1.7 mmol/L 0.5-2.2 [id number] 14:58:00* Test Item Value Reference Range Comments AMMONIA (BEAKER) (test wuow=699) 101 mol/L 18-72 PT/[id number] 14:57:00* Test Item Value Reference Range Comments PROTIME (BEAKER) (test hxpa=596) 15.0 seconds 11.9-14.2 INR (BEAKER) (test dyoz=174) 1.2 <=5.9 PARTIAL THROMBOPLASTIN TIME (BEAKER) (test wydv=785) 27.3 seconds 22.5-36.0 Effective 11/20/2018: PT Reference Range ChangeNew: 11.9-14.2 Previous: 11.7-14. 7RECOMMENDED COUMADIN/WARFARIN INR THERAPY RANGESSTANDARD DOSE: 2.0-3.0 Include s: PROPHYLAXIS for venous thrombosis, systemic embolization; TREATMENT for venou s thrombosis and/or pulmonary embolus.HIGH RISK: Target INR is 2.5-3.5 for patie nts wiht mechanical heart valves.CT, BRAIN, WITHOUT [id number] 14:35:[address], BRAIN, WITHOUT CONTRAST CLINICAL INDICAT ION: Altered mental statusCirrhotic with altered mental status rule out subdura l COMPARISON: April 18, 2019 TECHNIQUE: Noncontrast axial CT imaging of the b rain and skull. DOSE REDUCTION: Dose modulation, iterative reconstruction, and/ or weight-based adjustment of the mA/kV was utilized to reduce the radiation dos e to as low as reasonably achievable. FINDINGS:No intracranial hemorrhage, midli ne shift or mass effect. Midline structures are normally developed. Mild chronic microvascular ischemic changes of the periventricular and subcortical white mat ter are present. No hydrocephalus. Orbits are within normal limits. No obstructi ve paranasal sinus disease. Atherosclerotic calcification of the intracranial in ternal carotid and vertebral arteries. IMPRESSION: No acute intracranial findin gs If there is persistent clinical concern for intracranial pathology, MR examin ation is recommended for further characterization. Signed: Arcelia Queen MDRep ort Verified Date/Time: 05/03/2019 14:35:14 Reading Location: [address] Reading Room Electronically signed by: ARCELIA QUEEN MD on 2018 02:35 PM CBC W/PLT COUNT & AUTO [id number] 13:53:00* Test Item Value Reference Range Comments WHITE BLOOD CELL COUNT (BEAKER) (test cmvj=906) 2.5 K/ L 3.5-10.5 RED BLOOD CELL COUNT (BEAKER) (test xnow=608) 2.02 M/ L 4.63-6.08 HEMOGLOBIN (BEAKER) (test mobt=445) 6.3 GM/DL 13.7-17.5 HEMATOCRIT (BEAKER) (test ntnl=009) 18.2 % 40.1-51.0 MEAN CORPUSCULAR VOLUME (BEAKER) (test hfid=574) 90.1 fL 79.0-92.2 MEAN CORPUSCULAR HEMOGLOBIN (BEAKER) (test uzrl=844) 31.2 pg 25.7-32.2 MEAN CORPUSCULAR HEMOGLOBIN CONC (BEAKER) (test hsgq=413) 34.6 GM/DL 32.3-36.5 RED CELL DISTRIBUTION WIDTH (BEAKER) (test brov=718) 15.4 % 11.6-14.4 PLATELET COUNT (BEAKER) (test ivki=807) 63 K/CU MM 150-450 MEAN PLATELET VOLUME (BEAKER) (test xmeq=291) 10.6 fL 9.4-12.4 NUCLEATED RED BLOOD CELLS (BEAKER) (test rcbf=209) 0 /100 WBC 0-0 NEUTROPHILS RELATIVE PERCENT (BEAKER) (test mgao=016) 78 % LYMPHOCYTES RELATIVE PERCENT (BEAKER) (test ppxg=236) 9 % MONOCYTES RELATIVE PERCENT (BEAKER) (test kfdc=866) 9 % EOSINOPHILS RELATIVE PERCENT (BEAKER) (test bkrn=008) 2 % BASOPHILS RELATIVE PERCENT (BEAKER) (test hfgf=217) 1 % NEUTROPHILS ABSOLUTE COUNT (BEAKER) (test nobb=964) 1.92 K/ L 1.78-5.38 LYMPHOCYTES ABSOLUTE COUNT (BEAKER) (test jtsz=793) 0.21 K/ L 1.32-3.57 MONOCYTES ABSOLUTE COUNT (BEAKER) (test qaqt=846) 0.22 K/ L 0.30-0.82 EOSINOPHILS ABSOLUTE COUNT (BEAKER) (test binn=513) 0.06 K/ L 0.04-0.54 BASOPHILS ABSOLUTE COUNT (BEAKER) (test fevk=046) 0.02 K/ L 0.01-0.08 IMMATURE GRANULOCYTES-RELATIVE PERCENT (BEAKER) (test wbbh=5493) 1 % 0-1 U/S, [id number] 21:00:00LIMIT PARACENTESIS to 5 LITERSAdminister 200 mL of albumin 25% (50 grams) IV x1 after paracentesis if 3 or more liters removed.Send ascitic fluid for cell count and differential.Labs to be ordered:-> Other (please add comment)Reason for Exam:->Malignant NeoplasmFINAL REPORT Ultrasound guided paracentesis. Clinical History: Ascites. Sedation: None. Taxi Driver: Anabel Thornton PA-C Turner And Former Automatic: None. Estimated Blood Loss: < 1 cc. Specimen: 5000 cc of cloudy yellow fluid, samples sent to laboratory. Technique: Informed consent was obtained. The risks of pain, bleeding, infection, bowel perforation, injury to adjacent structures, and adverse medication reactions were discussed with the patient. After informed consent was obtained, the patient's abdomen was scanned. The RLQ of the abdomen was selected for paracentesis. After the largest fluid pocket area was marked, and the anterior abdominal wall was evaluated with color Doppler to exclude presence of blood vessels traversing the area, the skin was prepped and draped in the usual sterile manner. After local anesthesia was achieved with 2% lidocaine, a 5 Maldivian one-step catheter was advanced into the peritoneal cavity under ultrasound guidance. After completion of drainage, the catheter was removed. There was no evidence of complication. Impression:Successful ultrasound guided paracentesis. Signed: [facility] Verified Date/Time: 05/02/2019 21:00:10 Reading Location: [address] Ultrasound Reading Room FLUID CELL COUNT WITH [id number] 16:35:00* Test Item Value Reference Range Comments APPEARANCE FLUID (BEAKER) (test woem=170) Hazy Clear COLOR FLUID (BEAKER) (test vyuo=141) Yellow Colorless, Straw RBC FLUID (BEAKER) (test sjrh=656) 230 /cu mm <=1 ADJUSTED WBC FLUID (BEAKER) (test hqza=3144) 78 /cu mm <=5 LINING CELLS (BEAKER) (test bepw=8752) 2 /cu mm <=1 NEUTROPHILS FLUID (BEAKER) (test ijyb=3545) 4 % LYMPHS FLUID (BEAKER) (test otkr=725) 14 % MONO/MACROPHAGE FLUID (BEAKER) (test vdsy=130) 82 % EOSINOPHILS FLUID (BEAKER) (test rhwh=097) 0 % BASO FLUID (BEAKER) (test hfvt=708) 0 % CONTAINER BODY FLUID (BEAKER) (test nnlf=4490) EDTA Tube U/S, [id number] 17:52:00LIMIT PARACENTESIS to 5 LITERSAdminister 200 mL of albumin 25% (50 grams) IV x1 after paracentesis if 3 or more liters removed.Send ascitic fluid for cell count and differential.Labs to be ordered:-> Other (please add comment)Reason for Exam:->AscitesFINAL REPORT Ultrasound guided paracentesis Clinical History: Ascites. Sedation: None. Taxi Driver: Sharon Troy PA-C Supervising Physician: Sreedhar Hand MD Turner And Former Automatic: None. Estimated Blood Loss: < 1 mL. Specimen: 5000 mL of clear yellow fluid, samples sent to laboratory. Technique: Informed consent was obtained. The risks of pain, bleeding, infection, bowel perforation, injury to adjacent structures, and adverse medication reactions were discussed with the patient. After informed consent was obtained, the p atient's abdomen was scanned. The right lower quadrant of the abdomen was selec cristian for paracentesis. After the largest fluid pocket area was marked, and the a nterior abdominal wall was evaluated with color Doppler to exclude presence of b lood vessels traversing the area, the skin was prepped and draped in the usual s terile manner. After local anesthesia was achieved with lidocaine, a 5 Maldivian o ne-step catheter was advanced into the peritoneal cavity under ultrasound guidan ce. After completion of drainage, the catheter was removed. There was no evidenc e of complication. Impression:Successful ultrasound guided paracentesis. Signed: Sreedhar Hand MDReport Verified Date/Time: 04/28/2019 17:52:44 Reading Locatio n: [facility]1 P006J Ultrasound Reading Room FLUID CELL COUNT WITH DIFFERENTIAL 2019-04-28 12:50:00* Test Item Value Reference Range Comments APPEARANCE FLUID (BEAKER) (test onvb=681) Slightly Hazy Clear COLOR FLUID (BEAKER) (test xirs=466) Yellow Colorless, Straw RBC FLUID (BEAKER) (test ldka=385) 300 /cu mm <=1 ADJUSTED WBC FLUID (BEAKER) (test fnua=3957) 100 /cu mm <=5 LINING CELLS (BEAKER) (test ghei=8732) 7 /cu mm <=1 NEUTROPHILS FLUID (BEAKER) (test wwng=0934) 1 % LYMPHS FLUID (BEAKER) (test rfah=553) 16 % MONO/MACROPHAGE FLUID (BEAKER) (test avbz=942) 83 % EOSINOPHILS FLUID (BEAKER) (test seww=562) 0 % BASO FLUID (BEAKER) (test gjnp=780) 0 % CONTAINER BODY FLUID (BEAKER) (test xgdi=6317) EDTA Tube U/S, [id number] 18:37:00LIMIT PARACENTESIS to 5 LITERSAdminister 200 mL of albumin 25% (50 grams) IV x1 after paracentesis if 3 or more liters removed.Send ascitic fluid for cell count and differential.Labs to be ordered:-> Other (please add comment)Reason for Exam:->AscitesFINAL REPORT Ultrasound guided paracentesis. Clinical History: Ascites. Sedation: None. Taxi Driver: Anaebl Thornton PA-C Turner And Former Automatic: None. Estimated Blood Loss: < 1 cc. Specimen: 5000 cc of clear yellow fluid, samples sent to laboratory. Technique: Informed consent was obtained. The risks of pain, bleeding, infection, bowel perforation, injury to adjacent structures, and adverse medication reactions were discussed with the patient. After informed consent was obtained, the patient's abdomen was scanned. The RLQ of the abdomen was selected for paracentesis. After the largest fluid pocket area was marked, and the anterior abdominal wall was evaluated with color Doppler to exclude presence of blood vessels traversing the area, the skin was prepped and draped in the usual sterile manner. After local anesthesia was achieved with 2% lidocaine, a 5 Maldivian one-step catheter was advanced into the peritoneal cavity under ultrasound guidance. After completion of drainage, the catheter was removed. There was no evidence of complication. This procedure was performed by LAURENCE Colin under direct supervision of Timothy Kelly M.D. Impression:Successful ultrasound guided paracentesis. Signed: Timothy Kelly MDReport Verified Date/Time: 04/25/2019 18:37:34 Reading Location: [facility] P006J Ultrasound Reading Room FLUID CELL COUNT WITH [id number] 11:57:00* Test Item Value Reference Range Comments APPEARANCE FLUID (BEAKER) (test aoto=464) Hazy Clear COLOR FLUID (BEAKER) (test ioqa=558) Yellow Colorless, Straw RBC FLUID (BEAKER) (test whke=072) 445 /cu mm <=1 ADJUSTED WBC FLUID (BEAKER) (test pruk=5614) 78 /cu mm <=5 LINING CELLS (BEAKER) (test cfym=8815) 2 /cu mm <=1 NEUTROPHILS FLUID (BEAKER) (test mpgt=9885) 2 % LYMPHS FLUID (BEAKER) (test unss=435) 24 % MONO/MACROPHAGE FLUID (BEAKER) (test xylw=372) 74 % EOSINOPHILS FLUID (BEAKER) (test bkmk=309) 0 % BASO FLUID (BEAKER) (test egpe=574) 0 % CONTAINER BODY FLUID (BEAKER) (test sxro=6261) EDTA Tube U/S, [id number] 16:32:00LIMIT PARACENTESIS to 5 LITERSAdminister 200 mL of albumin 25% (50 grams) IV x1 after paracentesis if 3 or more liters removed.Send ascitic fluid for cell count and differential.Labs to be ordered:-> Other (please add comment)Reason for Exam:->AscitesFINAL REPORT Ultrasound guided paracentesis Clinical History: Ascites. Sedation: None. Taxi Driver: Sharon Troy PA-C Supervising Physician: Timothy Kelly MD Turner And Former Automatic: None. Estimated Blood Loss: < 1 mL. Specimen: 5000 mL of clear yellow fluid, samples sent to laboratory. Technique: Informed consent was obtained. The risks of pain, bleeding, infection, bowel perforation, injury to adjacent structures, and adverse medication reactions were discussed with the patient. After informed consent was obtained, the p atient's abdomen was scanned. The right lower quadrant of the abdomen was selec cristian for paracentesis. After the largest fluid pocket area was marked, and the a nterior abdominal wall was evaluated with color Doppler to exclude presence of b lood vessels traversing the area, the skin was prepped and draped in the usual s terile manner. After local anesthesia was achieved with lidocaine, a 5 Maldivian o ne-step catheter was advanced into the peritoneal cavity under ultrasound guidmathieu grimaldo. After completion of drainage, the catheter was removed. There was no evidenc e of complication. This procedure was performed by LAURENCE Condon under dir ect supervision of Timothy Kelly M.D. Impression:Successful ultrasound guided p aracentesis. Signed: Timothy Kelly MDReport Verified Date/Time: 04/24/2019 16 :32:36 Reading Location: [facility] P006J Ultrasound Reading Room D [id number] 12:01:00* Test Item Value Reference Range Comments CULTURE (BEAKER) (test umjj=9341) No growth in 5 days BLOOD [id number] 12:01:00* Test Item Value Reference Range Comments CULTURE (BEAKER) (test stxo=6404) No growth in 5 days BODY FLUID CULTURE + GRAM [id number] 09:14:00* Test Item Value Reference Range Comments CULTURE (BEAKER) (test xjco=7068) No growth GRAM STAIN RESULT (BEAKER) (test fovo=7014) <1+ White blood cells seen GRAM STAIN RESULT (BEAKER) (test mmrk=20730) No organisms seen BODY FLUID CELL COUNT WITH [id number] 10:28:00* Test Item Value Reference Range Comments APPEARANCE FLUID (BEAKER) (test haig=430) Cloudy Clear COLOR FLUID (BEAKER) (test itxs=583) Yellow Colorless, Straw RBC FLUID (BEAKER) (test svwt=622) 950 /cu mm <=1 ADJUSTED WBC FLUID (BEAKER) (test ncxt=7434) 80 /cu mm <=5 LINING CELLS (BEAKER) (test coqj=0822) 3 /cu mm <=1 NEUTROPHILS FLUID (BEAKER) (test vvcz=4371) 6 % LYMPHS FLUID (BEAKER) (test qdnj=893) 9 % MONO/MACROPHAGE FLUID (BEAKER) (test chlr=264) 85 % EOSINOPHILS FLUID (BEAKER) (test ixhw=824) 0 % BASO FLUID (BEAKER) (test pkjr=289) 0 % CONTAINER BODY FLUID (BEAKER) (test eqph=8777) EDTA Tube BASIC METABOLIC [id number] 07:01:00* Test Item Value Reference Range Comments SODIUM (BEAKER) (test ocoq=229) 140 meq/L 136-145 POTASSIUM (BEAKER) (test tvkg=239) 3.3 meq/L 3.5-5.1 CHLORIDE (BEAKER) (test john=581) 105 meq/L 98-107 CO2 (BEAKER) (test tvdb=316) 26 meq/L 22-29 BLOOD UREA NITROGEN (BEAKER) (test wedn=784) 61 mg/dL 7-21 CREATININE (BEAKER) (test iwqs=995) 3.00 mg/dL 0.57-1.25 GLUCOSE RANDOM (BEAKER) (test duob=718) 87 mg/dL 70-105 CALCIUM (BEAKER) (test pvzf=493) 8.7 mg/dL 8.4-10.2 EGFR (BEAKER) (test rboz=2007) 22 mL/min/1.73 sq m ESTIMATED GFR IS NOT ACCURATE CREATININE CLEARANCE IN PREDICTING GLOMERULAR FILTRATION RATE. ESTIMATED GFR IS NOT APPLICABLE FOR DIALYSIS PATIENTS. [id number] 06:54:00* Test Item Value Reference Range Comments PHOSPHORUS (BEAKER) (test eygg=599) 3.7 mg/dL 2.3-4.7 [id number] 06:54:00* Test Item Value Reference Range Comments MAGNESIUM (BEAKER) (test tjaf=387) 2.8 mg/dL 1.6-2.6 HEPATIC FUNCTION [id number] 06:54:00* Test Item Value Reference Range Comments TOTAL PROTEIN (BEAKER) (test ydkt=567) 6.0 gm/dL 6.0-8.3 ALBUMIN (BEAKER) (test bowt=1958) 3.5 g/dL 3.5-5.0 BILIRUBIN TOTAL (BEAKER) (test lyem=488) 1.8 mg/dL 0.2-1.2 BILIRUBIN DIRECT (BEAKER) (test hynn=381) 1.1 mg/dL 0.1-0.5 ALKALINE PHOSPHATASE (BEAKER) (test ikqi=452) 111 U/L 40-150 AST (SGOT) (BEAKER) (test oqyx=123) 17 U/L 5-34 ALT (SGPT) (BEAKER) (test yqod=835) 13 U/L 6-55 CALCIUM, [id number] 05:47:00* Test Item Value Reference Range Comments CALCIUM IONIZED (BEAKER) (test jsoe=481) 1.03 mmol/L 1.12-1.27 PH, BLOOD (BEAKER) (test okhg=1636) 7.47 CBC W/PLT COUNT & AUTO [id number] 05:34:00* Test Item Value Reference Range Comments WHITE BLOOD CELL COUNT (BEAKER) (test vhsa=414) 3.4 K/ L 3.5-10.5 RED BLOOD CELL COUNT (BEAKER) (test cyav=821) 2.66 M/ L 4.63-6.08 HEMOGLOBIN (BEAKER) (test nqrc=356) 8.1 GM/DL 13.7-17.5 HEMATOCRIT (BEAKER) (test xjqx=830) 25.3 % 40.1-51.0 MEAN CORPUSCULAR VOLUME (BEAKER) (test mfoj=121) 95.1 fL 79.0-92.2 MEAN CORPUSCULAR HEMOGLOBIN (BEAKER) (test vkfa=742) 30.5 pg 25.7-32.2 MEAN CORPUSCULAR HEMOGLOBIN CONC (BEAKER) (test kcja=041) 32.0 GM/DL 32.3-36.5 RED CELL DISTRIBUTION WIDTH (BEAKER) (test ckmm=912) 14.8 % 11.6-14.4 PLATELET COUNT (BEAKER) (test bkxv=366) 58 K/CU MM 150-450 MEAN PLATELET VOLUME (BEAKER) (test qymj=827) 10.7 fL 9.4-12.4 NUCLEATED RED BLOOD CELLS (BEAKER) (test rjof=722) 0 /100 WBC 0-0 NEUTROPHILS RELATIVE PERCENT (BEAKER) (test qdga=955) 80 % LYMPHOCYTES RELATIVE PERCENT (BEAKER) (test vaob=401) 6 % MONOCYTES RELATIVE PERCENT (BEAKER) (test tvwv=036) 8 % EOSINOPHILS RELATIVE PERCENT (BEAKER) (test rkdf=559) 6 % BASOPHILS RELATIVE PERCENT (BEAKER) (test oiuf=079) 1 % NEUTROPHILS ABSOLUTE COUNT (BEAKER) (test bbwf=352) 2.74 K/ L 1.78-5.38 LYMPHOCYTES ABSOLUTE COUNT (BEAKER) (test zvnw=804) 0.20 K/ L 1.32-3.57 MONOCYTES ABSOLUTE COUNT (BEAKER) (test adie=190) 0.27 K/ L 0.30-0.82 EOSINOPHILS ABSOLUTE COUNT (BEAKER) (test qxtl=535) 0.19 K/ L 0.04-0.54 BASOPHILS ABSOLUTE COUNT (BEAKER) (test kswj=086) 0.03 K/ L 0.01-0.08 IMMATURE GRANULOCYTES-RELATIVE PERCENT (BEAKER) (test haqu=2141) 0 % 0-1 IRON, TIBC, % SAT. (WITHOUT FERRITIN)2019-04-19 07:02:00* Test Item Value Reference Range Comments IRON (BEAKER) (test tbzq=551) 60.0 ug/dL 40.0-160.0 TOTAL IRON BINDING CAPACITY (BEAKER) (test bonh=669) 144 ug/dL 250-450 IRON % SATURATION (2) (BEAKER) (test idsh=7996) 42 % 20-55 BASIC METABOLIC [id number] 07:02:00* Test Item Value Reference Range Comments SODIUM (BEAKER) (test ojvt=341) 145 meq/L 136-145 POTASSIUM (BEAKER) (test frcp=788) 3.3 meq/L 3.5-5.1 CHLORIDE (BEAKER) (test vtsg=787) 110 meq/L 98-107 CO2 (BEAKER) (test slry=651) 25 meq/L 22-29 BLOOD UREA NITROGEN (BEAKER) (test mvpg=955) 67 mg/dL 7-21 CREATININE (BEAKER) (test fuhv=312) 2.97 mg/dL 0.57-1.25 GLUCOSE RANDOM (BEAKER) (test txiy=018) 79 mg/dL 70-105 CALCIUM (BEAKER) (test teit=903) 8.4 mg/dL 8.4-10.2 EGFR (BEAKER) (test ohqb=2880) 22 mL/min/1.73 sq m ESTIMATED GFR IS NOT ACCURATE CREATININE CLEARANCE IN PREDICTING GLOMERULAR FILTRATION RATE. ESTIMATED GFR IS NOT APPLICABLE FOR DIALYSIS PATIENTS. [id number] 06:53:00* Test Item Value Reference Range Comments PHOSPHORUS (BEAKER) (test tsff=585) 4.2 mg/dL 2.3-4.7 [id number] 06:53:00* Test Item Value Reference Range Comments MAGNESIUM (BEAKER) (test oikb=789) 2.6 mg/dL 1.6-2.6 HEPATIC FUNCTION [id number] 06:53:00* Test Item Value Reference Range Comments TOTAL PROTEIN (BEAKER) (test fefl=909) 5.6 gm/dL 6.0-8.3 ALBUMIN (BEAKER) (test smlj=2937) 3.2 g/dL 3.5-5.0 BILIRUBIN TOTAL (BEAKER) (test eoed=027) 2.2 mg/dL 0.2-1.2 BILIRUBIN DIRECT (BEAKER) (test zjyb=545) 1.6 mg/dL 0.1-0.5 ALKALINE PHOSPHATASE (BEAKER) (test ghnb=529) 109 U/L 40-150 AST (SGOT) (BEAKER) (test hjeh=692) 19 U/L 5-34 ALT (SGPT) (BEAKER) (test hkma=624) 14 U/L 6-55 CBC W/PLT COUNT & AUTO [id number] 06:49:00* Test Item Value Reference Range Comments WHITE BLOOD CELL COUNT (BEAKER) (test axdi=110) 2.2 K/ L 3.5-10.5 RED BLOOD CELL COUNT (BEAKER) (test kwtf=772) 2.22 M/ L 4.63-6.08 HEMOGLOBIN (BEAKER) (test eehn=614) 6.7 GM/DL 13.7-17.5 HEMATOCRIT (BEAKER) (test ytqm=894) 21.0 % 40.1-51.0 MEAN CORPUSCULAR VOLUME (BEAKER) (test vqhl=435) 94.6 fL 79.0-92.2 MEAN CORPUSCULAR HEMOGLOBIN (BEAKER) (test sont=298) 30.2 pg 25.7-32.2 MEAN CORPUSCULAR HEMOGLOBIN CONC (BEAKER) (test djex=648) 31.9 GM/DL 32.3-36.5 RED CELL DISTRIBUTION WIDTH (BEAKER) (test zcyz=987) 15.0 % 11.6-14.4 PLATELET COUNT (BEAKER) (test bcpg=442) 45 K/CU MM 150-450 MEAN PLATELET VOLUME (BEAKER) (test papl=498) 9.9 fL 9.4-12.4 NUCLEATED RED BLOOD CELLS (BEAKER) (test zbiq=295) 0 /100 WBC 0-0 NEUTROPHILS RELATIVE PERCENT (BEAKER) (test ycos=433) 77 % LYMPHOCYTES RELATIVE PERCENT (BEAKER) (test qbfo=598) 11 % MONOCYTES RELATIVE PERCENT (BEAKER) (test gmae=305) 6 % EOSINOPHILS RELATIVE PERCENT (BEAKER) (test sxnj=309) 4 % BASOPHILS RELATIVE PERCENT (BEAKER) (test gexs=424) 1 % NEUTROPHILS ABSOLUTE COUNT (BEAKER) (test paqx=207) 1.70 K/ L 1.78-5.38 LYMPHOCYTES ABSOLUTE COUNT (BEAKER) (test xcza=086) 0.25 K/ L 1.32-3.57 MONOCYTES ABSOLUTE COUNT (BEAKER) (test cbmj=373) 0.14 K/ L 0.30-0.82 EOSINOPHILS ABSOLUTE COUNT (BEAKER) (test ziha=362) 0.09 K/ L 0.04-0.54 BASOPHILS ABSOLUTE COUNT (BEAKER) (test jtiy=156) 0.01 K/ L 0.01-0.08 IMMATURE GRANULOCYTES-RELATIVE PERCENT (BEAKER) (test fhly=4066) 1 % 0-1 [id number] 06:46:00* Test Item Value Reference Range Comments FERRITIN (BEAKER) (test cxrj=591) 373 ng/mL 5-275 RAD, ABDOMEN/KUB, 1 VIEW [id number] 00:04:00Reason for exam:->sp Tube feeding placementFINAL REPORT CLINICAL HISTORY: Feeding tube placement COMPARISON: None. FINDINGS: A single supine view of the abdomen is submitted. The tip of a feeding tube overlies expected position of the distal stomach. Advancement is recommended if placement in the duodenum is intended. The visualized abdominal bowel gas pattern is unobstructed. There is no focus of dilated large or small bowel. There is no acute bony abnormality. Signed: Shashank Sorensen MDReport Verified Date/Time: 04/19/2019 00:04:04 FLUID CELL COUNT WITH [id number] 19:59:00* Test Item Value Reference Range Comments APPEARANCE FLUID (BEAKER) (test qpbc=457) Slightly Hazy Clear COLOR FLUID (BEAKER) (test ycuf=808) Yellow Colorless, Straw RBC FLUID (BEAKER) (test seiy=034) 22 /cu mm <=1 ADJUSTED WBC FLUID (BEAKER) (test vgdq=1559) 36 /cu mm <=5 LINING CELLS (BEAKER) (test tcvx=6257) 2 /cu mm <=1 NEUTROPHILS FLUID (BEAKER) (test khos=4698) 14 % LYMPHS FLUID (BEAKER) (test hydy=212) 21 % MONO/MACROPHAGE FLUID (BEAKER) (test gwds=271) 65 % EOSINOPHILS FLUID (BEAKER) (test rcty=202) 0 % BASO FLUID (BEAKER) (test nwdz=186) 0 % CONTAINER BODY FLUID (BEAKER) (test njck=9815) EDTA Tube PROTEIN, BODY [id number] 19:43:00* Test Item Value Reference Range Comments PROTEIN FLUID (BEAKER) (test vudn=934) 1.4 g/dL Absence of reference range indicates that normals have not been defined.Assay pe rformance has not been validated for this type of specimen.ascitesascites GLUCOSE, BODY [id number] 19:43:00* Test Item Value Reference Range Comments GLUCOSE, BODY FLUID (BEAKER) (test hfmt=5916) 113 mg/dL Absence of reference range indicates that normals have not been defined.Assay pe rformance has not been validated for this type of specimen.ascitesascitesU/S, [id number] 18:33:00Reason for exam:->ALTERED MENTAL STATUSFINAL REPORT Ultrasound guided paracentesis, 04/18/2019. Clinical History: Ascites. Sedation: None. Taxi Driver: Brittny leal. Turner And Former Automatic: None. Estimated Blood Loss: < 1 cc. Specimen: 12,000 cc of clear yellow fluid, samples sent to laboratory. Technique: Informed consent was obtained. The risks of pain, bleeding, infection, bowel perforation, injury to adjacent structures, and adverse medication reactions were discussed with the patient. After informed consent was obtained, the patient's abdomen was scanned. The right lower quadrant of the abdomen was selected for paracentesis. After the largest fluid pocket area was marked, and the anterior abdominal wall was evaluated with color Doppler to exclude presence of blood vessels traversing the area, the skin was prepped and draped in the usual sterile manner. After local anesthesia was achieved with 1% lidocaine, a 5 Maldivian one-step catheter was advanced into the peritoneal cavity under ultrasound guidance. After completion of drainage, the catheter was removed. There was no evidence of complication. Patient Disposition: The patient was discharged from the ultrasound department after the paracentesis, in good condition. Impression:S uccessful ultrasound guided paracentesis. Signed: Damion Holt MDReport Verifi ed Date/Time: 04/18/2019 18:33:16 Reading Location: [facility] P048 Angio Body Read ing Room -LACTIC ACID, [id number] 11:50:00* Test Item Value Reference Range Comments POC-LACTIC ACID, VENOUS (BEAKER) (test lrxb=7384) 0.8 mmol/L 0.9-1.7 TESTED AT [facility] [address] [address] CBC W/PLT COUNT & AUTO [id number] 08:59:00* Test Item Value Reference Range Comments WHITE BLOOD CELL COUNT (BEAKER) (test psom=297) 2.7 K/ L 3.5-10.5 RED BLOOD CELL COUNT (BEAKER) (test ndug=334) 2.35 M/ L 4.63-6.08 HEMOGLOBIN (BEAKER) (test eyvq=983) 7.3 GM/DL 13.7-17.5 HEMATOCRIT (BEAKER) (test maxq=215) 22.0 % 40.1-51.0 MEAN CORPUSCULAR VOLUME (BEAKER) (test hfxr=078) 93.6 fL 79.0-92.2 MEAN CORPUSCULAR HEMOGLOBIN (BEAKER) (test nvtx=838) 31.1 pg 25.7-32.2 MEAN CORPUSCULAR HEMOGLOBIN CONC (BEAKER) (test tafh=278) 33.2 GM/DL 32.3-36.5 RED CELL DISTRIBUTION WIDTH (BEAKER) (test vedb=070) 15.2 % 11.6-14.4 PLATELET COUNT (BEAKER) (test xawk=520) 56 K/CU MM 150-450 MEAN PLATELET VOLUME (BEAKER) (test izir=446) 9.8 fL 9.4-12.4 NUCLEATED RED BLOOD CELLS (BEAKER) (test hzhi=341) 0 /100 WBC 0-0 (CELLAVISION MANUAL DIFF)2019-04-18 08:59:00* Test Item Value Reference Range Comments NEUTROPHILS - REL (CELLAVISION)(BEAKER) (test fuur=3719) 85 % LYMPHOCYTES - REL (CELLAVISION)(BEAKER) (test izdz=5399) 8 % MONOCYTES - REL (CELLAVISION)(BEAKER) (test nwvq=0694) 5 % EOSINOPHILS - REL (CELLAVISION)(BEAKER) (test swaa=4223) 2 % NEUTROPHILS - ABS (CELLAVISION)(BEAKER) (test vgzx=3126) 2.30 K/ul 1.78-5.38 LYMPHOCYTES - ABS (CELLAVISION)(BEAKER) (test slib=5363) 0.22 K/ul 1.32-3.57 MONOCYTES - ABS (CELLAVISION)(BEAKER) (test nufd=6252) 0.14 K/uL 0.30-0.82 EOSINOPHILS - ABS (CELLAVISION)(BEAKER) (test lgtn=3177) 0.05 K/uL 0.04-0.54 TOTAL COUNTED (BEAKER) (test bexo=1885) 100 SMUDGE CELLS (BEAKER) (test ybdf=9826) Present GIANT PLATELETS (BEAKER) (test mutk=514) Present ANISOCYTOSIS (BEAKER) (test dcot=235) 1+ few POIKILOCYTES (BEAKER) (test sxsn=000) 1+ few PLATELET CONCENTRATION (CELLAVISION)(BEAKER) (test jaxd=7346) Decreased Received comment: User comments: Slide comments: CT, BRAIN, WITHOUT CONTRAST 2019-04-18 08:05:00Reason for exam:->headacheWhat is the patient's sedation requirement?->No SedationFINAL REPORT CT, BRAIN, WITHOUT CONTRAST INDICATION: headacheconfusion TECHNIQUE: Noncontrast axial imaging was obtained from the vertex to the skull base. Axial images were reconstructed using a bone algorithm. DOSE REDUCTION: Dose modulation, iterative reconstruction, and/or weight-based adjustment of the mA/kV was utilized to reduce the radiation dose to as low as reasonably achievable. COMPARISON: May 14, 2018 FINDINGS: Cerebral parenchyma: Diffuse parenchymal volume loss. Appearance of the white matter suggests chronic microvascular disease.Midline structures: Normally positioned.Cerebellum and brainstem: Commensurate volume loss.Ventricles: Normal volume.Extra-axial spaces: Unr emarkable. Calvarium and skull base: Intact.Paranasal sinuses and mastoid air ce lls: Visible chambers are clear.Orbital contents: Included portions unremarkable . Additional findings: None. IMPRESSION: Chronic involutional changes without acute intracranial abnormality. If there is persistent clinical concern for intr acranial pathology, MR examination is recommended for further characterization. Signed: JR Stanton Robert MDReport Verified Date/Time: 04/18/2019 08:05: 16 Reading Location: [address] Neuro Reading Room C METABOLIC [id number] 08:01:00* Test Item Value Reference Range Comments SODIUM (BEAKER) (test hbki=963) 141 meq/L 136-145 POTASSIUM (BEAKER) (test nqya=815) 3.3 meq/L 3.5-5.1 CHLORIDE (BEAKER) (test rcjs=474) 107 meq/L 98-107 CO2 (BEAKER) (test vssh=322) 24 meq/L 22-29 BLOOD UREA NITROGEN (BEAKER) (test dprd=221) 74 mg/dL 7-21 CREATININE (BEAKER) (test iyra=087) 3.24 mg/dL 0.57-1.25 GLUCOSE RANDOM (BEAKER) (test mlds=537) 108 mg/dL 70-105 CALCIUM (BEAKER) (test sqbt=791) 8.7 mg/dL 8.4-10.2 EGFR (BEAKER) (test wdir=2181) 20 mL/min/1.73 sq m ESTIMATED GFR IS NOT ACCURATE CREATININE CLEARANCE IN PREDICTING GLOMERULAR FILTRATION RATE. ESTIMATED GFR IS NOT APPLICABLE FOR DIALYSIS PATIENTS. HEPATIC FUNCTION [id number] 07:53:00* Test Item Value Reference Range Comments TOTAL PROTEIN (BEAKER) (test lgri=052) 6.5 gm/dL 6.0-8.3 ALBUMIN (BEAKER) (test palu=8834) 3.4 g/dL 3.5-5.0 BILIRUBIN TOTAL (BEAKER) (test rqsy=112) 1.8 mg/dL 0.2-1.2 BILIRUBIN DIRECT (BEAKER) (test nsvz=931) 1.2 mg/dL 0.1-0.5 ALKALINE PHOSPHATASE (BEAKER) (test hhwm=636) 145 U/L 40-150 AST (SGOT) (BEAKER) (test stwt=088) 21 U/L 5-34 ALT (SGPT) (BEAKER) (test uvcj=473) 16 U/L 6-55 [id number] 07:49:00* Test Item Value Reference Range Comments PROTIME (BEAKER) (test pibn=506) 15.9 seconds 11.9-14.2 INR (BEAKER) (test txym=475) 1.3 <=5.9 PARTIAL THROMBOPLASTIN TIME (BEAKER) (test enfm=365) 32.7 seconds 22.5-36.0 Effective 11/20/2018: PT Reference Range ChangeNew: 11.9-14.2 Previous: 11.7-14. 7RECOMMENDED COUMADIN/WARFARIN INR THERAPY RANGESSTANDARD DOSE: 2.0-3.0 Include s: PROPHYLAXIS for venous thrombosis, systemic embolization; TREATMENT for venou s thrombosis and/or pulmonary embolus.HIGH RISK: Target INR is 2.5-3.5 for patie nts wiht mechanical heart valves.[id number] 07:44:00* Test Item Value Reference Range Comments AMMONIA (JACKI) (test uwrm=029) 124 mol/L 18-72 U/S, [id number] 08:25:00LIMIT PARACENTESIS to 5 LITERSAdminister 200 mL of albumin 25% (50 grams) IV x1 after paracentesis if 3 or more liters removed.Send ascitic fluid for cell count and differential.Labs to be ordered:-> Other (please add comment)Reason for Exam:->AscitesFINAL REPORT Ultrasound guided paracentesis. Clinical History: Ascites. Sedation: None. Taxi Driver: Anabel Thornton PA-C Turner And Former Automatic: None. Estimated Blood Loss: < 1 cc. Specimen: 5000 cc of clear yellow fluid, samples sent to laboratory. Technique: Informed consent was obtained. The risks of pain, bleeding, infection, bowel perforation, injury to adjacent structures, and adverse medication reactions were discussed with the patient. After informed consent was obtained, the patient's abdomen was scanned. The RLQ of the abdomen was selected for paracentesis. After the largest fluid pocket area was marked, and the anterior abdominal wall was evaluated with color Doppler to exclude presence of blood vessels traversing the area, the skin was prepped and draped in the usual sterile manner. After local anesthesia was achieved with 2% lidocaine, a 5 Maldivian one-step catheter was advanced into the peritoneal cavity under ultrasound guidance. After completion of drainage, the catheter was removed. There was no evidence of complication. Impression:Successful ultrasound guided paracentesis. Signed: Damion Holt Verified Date/Time: 04/17/2019 08:25:30 Reading Location: [address] Ultrasound Reading Room U/S, [id number] 09:37:00Labs to be ordered:->No Labs NeededReason for exam:->Very large ascites. OK to take up to 9 LFINAL REPORT Ultrasound guided paracentesis Clinical History: Ascites. Sedation: None. Taxi Driver: Sharon Troy PA-C Supervising Physician: Quincy Padgett MD Turner [employer] Former Automatic: None. Estimated Blood Loss: < 1 mL. Specimen: 9000 mL of clear yellow fluid, samples sent to laboratory. Technique: Informed consent was obtained. The risks of pain, bleeding, infection, bowel perforation, injury to adjacent structures, and adverse medication reactions were discussed with the patient. After informed consent was obtained, the p atient's abdomen was scanned. The right lower quadrant of the abdomen was selec cristian for paracentesis. After the largest fluid pocket area was marked, and the a nterior abdominal wall was evaluated with color Doppler to exclude presence of b lood vessels traversing the area, the skin was prepped and draped in the usual s terile manner. After local anesthesia was achieved with lidocaine, a 5 Maldivian o ne-step catheter was advanced into the peritoneal cavity under ultrasound guidan ce. After completion of drainage, the catheter was removed. There was no evidenc e of complication. Impression:Successful ultrasound guided paracentesis. Signed: Quincy Padgett Verified Date/Time: 04/16/2019 09:37:46 Reading Location: [address] [address] Ultrasound Reading Room FLUID CELL COUNT WITH [id number] 14:22:00* Test Item Value Reference Range Comments APPEARANCE FLUID (BEAKER) (test siwg=212) Cloudy Clear COLOR FLUID (BEAKER) (test gvgk=502) Straw Colorless, Straw RBC FLUID (BEAKER) (test gyje=414) 78 /cu mm <=1 ADJUSTED WBC FLUID (BEAKER) (test hwuv=4926) 67 /cu mm <=5 LINING CELLS (BEAKER) (test ljrp=4594) 0 /cu mm <=1 NEUTROPHILS FLUID (BEAKER) (test mcjx=0305) 0 % LYMPHS FLUID (BEAKER) (test omsz=161) 19 % MONO/MACROPHAGE FLUID (BEAKER) (test nnui=770) 81 % EOSINOPHILS FLUID (BEAKER) (test waeo=066) 0 % BASO FLUID (BEAKER) (test xkzi=615) 0 % CONTAINER BODY FLUID (BEAKER) (test wvnv=2056) EDTA Tube BODY FLUID CULTURE + GRAM [id number] 09:14:00* Test Item Value Reference Range Comments CULTURE (BEAKER) (test udag=7261) No growth GRAM STAIN RESULT (BEAKER) (test mkhn=7631) <1+ WBCs GRAM STAIN RESULT (BEAKER) (test ykyl=98112) No organisms seen CALCIUM, [id number] 06:11:00* Test Item Value Reference Range Comments CALCIUM IONIZED (BEAKER) (test yqje=506) 1.03 mmol/L 1.12-1.27 PH, BLOOD (BEAKER) (test hnty=7271) 7.39 BASIC METABOLIC [id number] 05:42:00* Test Item Value Reference Range Comments SODIUM (BEAKER) (test fnsj=080) 129 meq/L 136-145 POTASSIUM (BEAKER) (test bcjr=546) 3.1 meq/L 3.5-5.1 CHLORIDE (BEAKER) (test qcxg=887) 96 meq/L 98-107 CO2 (BEAKER) (test suhu=083) 23 meq/L 22-29 BLOOD UREA NITROGEN (BEAKER) (test fogm=515) 67 mg/dL 7-21 CREATININE (BEAKER) (test bsux=534) 4.06 mg/dL 0.57-1.25 GLUCOSE RANDOM (BEAKER) (test pppy=196) 112 mg/dL 70-105 CALCIUM (BEAKER) (test ixaj=496) 8.1 mg/dL 8.4-10.2 EGFR (BEAKER) (test bsdp=3714) 16 mL/min/1.73 sq m ESTIMATED GFR IS NOT ACCURATE CREATININE CLEARANCE IN PREDICTING GLOMERULAR FILTRATION RATE. ESTIMATED GFR IS NOT APPLICABLE FOR DIALYSIS PATIENTS. [id number] 05:39:00* Test Item Value Reference Range Comments PHOSPHORUS (BEAKER) (test oeco=661) 4.6 mg/dL 2.3-4.7 [id number] 05:39:00* Test Item Value Reference Range Comments MAGNESIUM (BEAKER) (test optm=827) 2.1 mg/dL 1.6-2.6 HEPATIC FUNCTION [id number] 05:39:00* Test Item Value Reference Range Comments TOTAL PROTEIN (BEAKER) (test feyn=913) 5.8 gm/dL 6.0-8.3 ALBUMIN (BEAKER) (test zxwy=4364) 3.2 g/dL 3.5-5.0 BILIRUBIN TOTAL (BEAKER) (test frts=215) 0.9 mg/dL 0.2-1.2 BILIRUBIN DIRECT (BEAKER) (test tevr=088) 0.6 mg/dL 0.1-0.5 ALKALINE PHOSPHATASE (BEAKER) (test xmcy=449) 145 U/L 40-150 AST (SGOT) (BEAKER) (test pdlv=643) 15 U/L 5-34 ALT (SGPT) (BEAKER) (test erxo=119) 11 U/L 6-55 B-TYPE NATRIURETIC FACTOR (BNP)2019-04-12 05:24:00* Test Item Value Reference Range Comments B-TYPE NATRIURETIC PEPTIDE (BEAKER) (test wlxe=877) 57 pg/mL 0-100 CBC W/PLT COUNT & AUTO [id number] 05:09:00* Test Item Value Reference Range Comments WHITE BLOOD CELL COUNT (BEAKER) (test fbjh=850) 3.0 K/ L 3.5-10.5 RED BLOOD CELL COUNT (BEAKER) (test tdyc=885) 2.33 M/ L 4.63-6.08 HEMOGLOBIN (BEAKER) (test nktb=376) 7.2 GM/DL 13.7-17.5 HEMATOCRIT (BEAKER) (test ktce=245) 21.6 % 40.1-51.0 MEAN CORPUSCULAR VOLUME (BEAKER) (test rkhx=717) 92.7 fL 79.0-92.2 MEAN CORPUSCULAR HEMOGLOBIN (BEAKER) (test sjep=206) 30.9 pg 25.7-32.2 MEAN CORPUSCULAR HEMOGLOBIN CONC (BEAKER) (test qnew=874) 33.3 GM/DL 32.3-36.5 RED CELL DISTRIBUTION WIDTH (BEAKER) (test ouzv=135) 14.5 % 11.6-14.4 PLATELET COUNT (BEAKER) (test nmxr=790) 48 K/CU MM 150-450 MEAN PLATELET VOLUME (BEAKER) (test bksw=444) 11.0 fL 9.4-12.4 NUCLEATED RED BLOOD CELLS (BEAKER) (test hcmp=889) 0 /100 WBC 0-0 NEUTROPHILS RELATIVE PERCENT (BEAKER) (test yyot=153) 79 % LYMPHOCYTES RELATIVE PERCENT (BEAKER) (test mzln=122) 7 % MONOCYTES RELATIVE PERCENT (BEAKER) (test ipjr=859) 8 % EOSINOPHILS RELATIVE PERCENT (BEAKER) (test saqx=672) 5 % BASOPHILS RELATIVE PERCENT (BEAKER) (test ewla=867) 0 % NEUTROPHILS ABSOLUTE COUNT (BEAKER) (test rlep=926) 2.41 K/ L 1.78-5.38 LYMPHOCYTES ABSOLUTE COUNT (BEAKER) (test nzku=453) 0.21 K/ L 1.32-3.57 MONOCYTES ABSOLUTE COUNT (BEAKER) (test pjrg=904) 0.23 K/ L 0.30-0.82 EOSINOPHILS ABSOLUTE COUNT (BEAKER) (test fefr=896) 0.16 K/ L 0.04-0.54 BASOPHILS ABSOLUTE COUNT (BEAKER) (test alxt=756) 0.01 K/ L 0.01-0.08 IMMATURE GRANULOCYTES-RELATIVE PERCENT (BEAKER) (test wwxo=8184) 1 % 0-1 PROTHROMBIN [id number] 05:06:00* Test Item Value Reference Range Comments PROTIME (BEAKER) (test zfym=815) 15.0 seconds 11.9-14.2 INR (BEAKER) (test trkj=459) 1.2 <=5.9 Effective 11/20/2018: PT Reference Range ChangeNew: 11.9-14.2 Previous: 11.7-14. 7RECOMMENDED COUMADIN/WARFARIN INR THERAPY RANGESSTANDARD DOSE: 2.0-3.0 Include s: PROPHYLAXIS for venous thrombosis, systemic embolization; TREATMENT for venou s thrombosis and/or pulmonary embolus.HIGH RISK: Target INR is 2.5-3.5 for patie nts wiht mechanical heart valves.BODY FLUID CELL COUNT WITH DIFFERENTIAL 2019-04-11 19:56:00* Test Item Value Reference Range Comments APPEARANCE FLUID (BEAKER) (test dwwn=783) Slightly Cloudy Clear COLOR FLUID (BEAKER) (test fuoa=001) Yellow Colorless, Straw RBC FLUID (BEAKER) (test ddzc=957) 1140 /cu mm <=1 ADJUSTED WBC FLUID (BEAKER) (test ocat=8289) 98 /cu mm <=5 LINING CELLS (BEAKER) (test unpb=3748) 2 /cu mm <=1 NEUTROPHILS FLUID (BEAKER) (test ncxg=9792) 1 % LYMPHS FLUID (BEAKER) (test msqd=460) 13 % MONO/MACROPHAGE FLUID (BEAKER) (test dysp=545) 86 % EOSINOPHILS FLUID (BEAKER) (test pvas=742) 0 % BASO FLUID (BEAKER) (test wcwk=324) 0 % CONTAINER BODY FLUID (BEAKER) (test qota=4513) EDTA Tube U/S, [id number] 18:42:00Labs to be ordered:->Body Fluid Culture (w/Gram Stain, C\\T\\S)Labs to be ordered:->CytologyReason for exam:->AscitesFINAL REPORT US Guided Paracentesis. History: Recurrent ascites. Request for paracentesis. Taxi Driver: Timbo Reilly MD. Turner And Former Automatic: None. Modality: Ultrasound Sedation: None. Anesthesia: Lidocaine local infiltration. Estimated blood loss: < 5 cc. Technique: Informed written consent was obtained. Discussion of risks, benefits, and alternatives were made with the patient. The patient expressed understanding and agreed to proceed. A universal timeout was performed prior to starting the procedure. Standard sterile precautions were utilized. The procedure room personnel used personal protective equipment. The operators additionally used sterile surgical gloves. A preliminary ultrasonography was performed to assess the target and determine a safe access site. It showed abdominal ascites. Pertinent ultrasound images were stored to the PACS for documentation. The a ccess site was selected and sterilely prepped and draped. Local anesthesia was a dministered. A dermatotomy was performed. A catheter over the needle system was advanced into the peritoneal cavity. Straw colored fluid was aspirated and the p lastic catheter advanced into the peritoneum. The catheter was then connected to a fluid recovery system. At the end of the procedure, the catheter was withdrawn and an aseptic dressing applied. The patient tolerated the procedure well. Af ter uneventful recovery recovery, the patient was discharged from the department in stable condition. The total amount of fluid recovered is given below. Complications: None immediate. Specimen: Sent to the lab. Impression: Successful ultrasound-guided paracentesis using a right lower quadrant access with recovery of seven liters of fluid as sun cribed above. Thank you for the opportunity to assist in the care of your patien t. Signed: Timbo Reilly Verified Date/Time: 04/11/2019 18:42:28 Read ing Location: [place] [address] Angio Body Reading Room FLUID CULTURE + GRAM STAIN 2019-04-11 12:25:00* Test Item Value Reference Range Comments CULTURE (BEAKER) (test ielj=9003) No growth GRAM STAIN RESULT (BEAKER) (test ofed=2958) <1+ WBCs GRAM STAIN RESULT (BEAKER) (test ikpx=84351) No organisms seen HEPATIC FUNCTION [id number] 06:23:00* Test Item Value Reference Range Comments TOTAL PROTEIN (BEAKER) (test xdgu=656) 5.7 gm/dL 6.0-8.3 ALBUMIN (BEAKER) (test cday=5959) 2.9 g/dL 3.5-5.0 BILIRUBIN TOTAL (BEAKER) (test rnre=541) 0.8 mg/dL 0.2-1.2 BILIRUBIN DIRECT (BEAKER) (test ichm=342) 0.6 mg/dL 0.1-0.5 ALKALINE PHOSPHATASE (BEAKER) (test aadm=582) 145 U/L 40-150 AST (SGOT) (BEAKER) (test ncrt=381) 18 U/L 5-34 ALT (SGPT) (BEAKER) (test hjdg=220) 13 U/L 6-55 BASIC METABOLIC [id number] 06:23:00* Test Item Value Reference Range Comments SODIUM (BEAKER) (test faiq=131) 132 meq/L 136-145 POTASSIUM (BEAKER) (test ultk=614) 3.5 meq/L 3.5-5.1 CHLORIDE (BEAKER) (test bzqs=771) 99 meq/L 98-107 CO2 (BEAKER) (test pjhh=831) 22 meq/L 22-29 BLOOD UREA NITROGEN (BEAKER) (test btgd=937) 65 mg/dL 7-21 CREATININE (BEAKER) (test nyay=707) 4.09 mg/dL 0.57-1.25 GLUCOSE RANDOM (BEAKER) (test hvpz=248) 142 mg/dL 70-105 CALCIUM (BEAKER) (test wjee=791) 8.3 mg/dL 8.4-10.2 EGFR (BEAKER) (test ylmv=7616) 16 mL/min/1.73 sq m ESTIMATED GFR IS NOT ACCURATE CREATININE CLEARANCE IN PREDICTING GLOMERULAR FILTRATION RATE. ESTIMATED GFR IS NOT APPLICABLE FOR DIALYSIS PATIENTS. PROTHROMBIN [id number] 05:07:00* Test Item Value Reference Range Comments PROTIME (BEAKER) (test pacw=116) 14.1 seconds 11.9-14.2 INR (BEAKER) (test guvo=022) 1.1 <=5.9 Effective 11/20/2018: PT Reference Range ChangeNew: 11.9-14.2 Previous: 11.7-14. 7RECOMMENDED COUMADIN/WARFARIN INR THERAPY RANGESSTANDARD DOSE: 2.0-3.0 Include s: PROPHYLAXIS for venous thrombosis, systemic embolization; TREATMENT for venou s thrombosis and/or pulmonary embolus.HIGH RISK: Target INR is 2.5-3.5 for patie nts wiht mechanical heart valves.BASIC METABOLIC [id number] 05:23:00* Test Item Value Reference Range Comments SODIUM (BEAKER) (test noyl=255) 130 meq/L 136-145 POTASSIUM (BEAKER) (test danj=243) 3.1 meq/L 3.5-5.1 CHLORIDE (BEAKER) (test bwxt=231) 97 meq/L 98-107 CO2 (BEAKER) (test dxrj=908) 21 meq/L 22-29 BLOOD UREA NITROGEN (BEAKER) (test piar=543) 65 mg/dL 7-21 CREATININE (BEAKER) (test jqus=822) 3.83 mg/dL 0.57-1.25 GLUCOSE RANDOM (BEAKER) (test vrqh=423) 124 mg/dL 70-105 CALCIUM (BEAKER) (test rdbw=815) 8.0 mg/dL 8.4-10.2 EGFR (BEAKER) (test tuhk=9723) 17 mL/min/1.73 sq m ESTIMATED GFR IS NOT ACCURATE CREATININE CLEARANCE IN PREDICTING GLOMERULAR FILTRATION RATE. ESTIMATED GFR IS NOT APPLICABLE FOR DIALYSIS PATIENTS. [id number] 05:18:00* Test Item Value Reference Range Comments PHOSPHORUS (BEAKER) (test vfjy=841) 4.7 mg/dL 2.3-4.7 [id number] 05:18:00* Test Item Value Reference Range Comments MAGNESIUM (BEAKER) (test kbcr=583) 2.1 mg/dL 1.6-2.6 HEPATIC FUNCTION [id number] 05:18:00* Test Item Value Reference Range Comments TOTAL PROTEIN (BEAKER) (test ahym=852) 5.7 gm/dL 6.0-8.3 ALBUMIN (BEAKER) (test thgk=0399) 3.0 g/dL 3.5-5.0 BILIRUBIN TOTAL (BEAKER) (test dcpp=854) 1.1 mg/dL 0.2-1.2 BILIRUBIN DIRECT (BEAKER) (test qxww=892) 0.7 mg/dL 0.1-0.5 ALKALINE PHOSPHATASE (BEAKER) (test ezda=119) 141 U/L 40-150 AST (SGOT) (BEAKER) (test jpbu=229) 15 U/L 5-34 ALT (SGPT) (BEAKER) (test ortb=045) 10 U/L 6-55 CBC W/PLT COUNT & AUTO [id number] 04:51:00* Test Item Value Reference Range Comments WHITE BLOOD CELL COUNT (BEAKER) (test nehd=146) 3.7 K/ L 3.5-10.5 RED BLOOD CELL COUNT (BEAKER) (test qwkf=456) 2.67 M/ L 4.63-6.08 HEMOGLOBIN (BEAKER) (test ozim=428) 8.1 GM/DL 13.7-17.5 HEMATOCRIT (BEAKER) (test wmcy=225) 24.8 % 40.1-51.0 MEAN CORPUSCULAR VOLUME (BEAKER) (test widm=957) 92.9 fL 79.0-92.2 MEAN CORPUSCULAR HEMOGLOBIN (BEAKER) (test imyp=081) 30.3 pg 25.7-32.2 MEAN CORPUSCULAR HEMOGLOBIN CONC (BEAKER) (test cniq=769) 32.7 GM/DL 32.3-36.5 RED CELL DISTRIBUTION WIDTH (BEAKER) (test rdow=065) 14.7 % 11.6-14.4 PLATELET COUNT (BEAKER) (test ypxz=198) 51 K/CU MM 150-450 MEAN PLATELET VOLUME (BEAKER) (test ayyl=241) 11.1 fL 9.4-12.4 NUCLEATED RED BLOOD CELLS (BEAKER) (test salr=392) 0 /100 WBC 0-0 NEUTROPHILS RELATIVE PERCENT (BEAKER) (test yech=996) 81 % LYMPHOCYTES RELATIVE PERCENT (BEAKER) (test xiwq=032) 7 % MONOCYTES RELATIVE PERCENT (BEAKER) (test byoc=695) 6 % EOSINOPHILS RELATIVE PERCENT (BEAKER) (test gkui=032) 5 % BASOPHILS RELATIVE PERCENT (BEAKER) (test mski=346) 1 % NEUTROPHILS ABSOLUTE COUNT (BEAKER) (test iahf=492) 2.96 K/ L 1.78-5.38 LYMPHOCYTES ABSOLUTE COUNT (BEAKER) (test jcxq=253) 0.26 K/ L 1.32-3.57 MONOCYTES ABSOLUTE COUNT (BEAKER) (test fpwg=752) 0.21 K/ L 0.30-0.82 EOSINOPHILS ABSOLUTE COUNT (BEAKER) (test ndke=436) 0.18 K/ L 0.04-0.54 BASOPHILS ABSOLUTE COUNT (BEAKER) (test cybm=872) 0.03 K/ L 0.01-0.08 IMMATURE GRANULOCYTES-RELATIVE PERCENT (BEAKER) (test mtyb=3978) 1 % 0-1 PROTHROMBIN [id number] 04:07:00* Test Item Value Reference Range Comments PROTIME (BEAKER) (test krkb=797) 14.5 seconds 11.9-14.2 INR (BEAKER) (test yail=849) 1.2 <=5.9 Effective 11/20/2018: PT Reference Range ChangeNew: 11.9-14.2 Previous: 11.7-14. 7RECOMMENDED COUMADIN/WARFARIN INR THERAPY RANGESSTANDARD DOSE: 2.0-3.0 Include s: PROPHYLAXIS for venous thrombosis, systemic embolization; TREATMENT for venou s thrombosis and/or pulmonary embolus.HIGH RISK: Target INR is 2.5-3.5 for patie nts wiht mechanical heart valves.CALCIUM, [id number] 03:50:00* Test Item Value Reference Range Comments CALCIUM IONIZED (BEAKER) (test qpeq=879) 1.01 mmol/L 1.12-1.27 PH, BLOOD (BEAKER) (test fbqy=4188) 7.35 CALCIUM, [id number] 05:36:00* Test Item Value Reference Range Comments CALCIUM IONIZED (BEAKER) (test xnnx=395) 1.04 mmol/L 1.12-1.27 PH, BLOOD (BEAKER) (test vypd=5130) 7.45 COMPREHENSIVE METABOLIC [id number] 05:12:00* Test Item Value Reference Range Comments TOTAL PROTEIN (BEAKER) (test ogwl=667) 5.4 gm/dL 6.0-8.3 ALBUMIN (BEAKER) (test lssm=0538) 2.9 g/dL 3.5-5.0 ALKALINE PHOSPHATASE (BEAKER) (test tfmb=917) 125 U/L 40-150 BILIRUBIN TOTAL (BEAKER) (test ngqu=478) 0.9 mg/dL 0.2-1.2 SODIUM (BEAKER) (test klep=726) 132 meq/L 136-145 POTASSIUM (BEAKER) (test pmuo=810) 3.7 meq/L 3.5-5.1 CHLORIDE (BEAKER) (test iged=727) 101 meq/L 98-107 CO2 (BEAKER) (test gvjb=654) 21 meq/L 22-29 BLOOD UREA NITROGEN (BEAKER) (test wgqh=669) 65 mg/dL 7-21 CREATININE (BEAKER) (test ysyx=269) 3.65 mg/dL 0.57-1.25 GLUCOSE RANDOM (BEAKER) (test vvbd=407) 107 mg/dL 70-105 CALCIUM (BEAKER) (test riop=273) 8.0 mg/dL 8.4-10.2 AST (SGOT) (BEAKER) (test kwen=710) 13 U/L 5-34 ALT (SGPT) (BEAKER) (test qqco=951) 8 U/L 6-55 EGFR (BEAKER) (test cxuv=0677) 18 mL/min/1.73 sq m ESTIMATED GFR IS NOT ACCURATE CREATININE CLEARANCE IN PREDICTING GLOMERULAR FILTRATION RATE. ESTIMATED GFR IS NOT APPLICABLE FOR DIALYSIS PATIENTS. [id number] 05:05:00* Test Item Value Reference Range Comments PHOSPHORUS (BEAKER) (test ivod=993) 4.7 mg/dL 2.3-4.7 [id number] 05:05:00* Test Item Value Reference Range Comments MAGNESIUM (BEAKER) (test mlac=021) 2.1 mg/dL 1.6-2.6 HEPATIC FUNCTION [id number] 05:05:00* Test Item Value Reference Range Comments TOTAL PROTEIN (BEAKER) (test eokg=282) 5.4 gm/dL 6.0-8.3 ALBUMIN (BEAKER) (test hngr=6966) 2.9 g/dL 3.5-5.0 BILIRUBIN TOTAL (BEAKER) (test shnc=315) 0.9 mg/dL 0.2-1.2 BILIRUBIN DIRECT (BEAKER) (test gran=735) 0.6 mg/dL 0.1-0.5 ALKALINE PHOSPHATASE (BEAKER) (test ucms=110) 125 U/L 40-150 AST (SGOT) (BEAKER) (test aigw=010) 13 U/L 5-34 ALT (SGPT) (BEAKER) (test lyjb=585) 8 U/L 6-55 B-TYPE NATRIURETIC FACTOR (BNP)2019-04-09 04:57:00* Test Item Value Reference Range Comments B-TYPE NATRIURETIC PEPTIDE (BEAKER) (test vfds=661) 99 pg/mL 0-100 PROTHROMBIN TIME/[id number] 04:47:00* Test Item Value Reference Range Comments PROTIME (BEAKER) (test wrdy=921) 14.9 seconds 11.9-14.2 INR (BEAKER) (test emts=412) 1.2 <=5.9 Effective 11/20/2018: PT Reference Range ChangeNew: 11.9-14.2 Previous: 11.7-14. 7RECOMMENDED COUMADIN/WARFARIN INR THERAPY RANGESSTANDARD DOSE: 2.0-3.0 Include s: PROPHYLAXIS for venous thrombosis, systemic embolization; TREATMENT for venou s thrombosis and/or pulmonary embolus.HIGH RISK: Target INR is 2.5-3.5 for patie nts wiht mechanical heart valves.CBC W/PLT COUNT & AUTO [id number] 04:36:00* Test Item Value Reference Range Comments WHITE BLOOD CELL COUNT (BEAKER) (test uqjc=189) 2.9 K/ L 3.5-10.5 RED BLOOD CELL COUNT (BEAKER) (test qecs=731) 2.22 M/ L 4.63-6.08 HEMOGLOBIN (BEAKER) (test crfv=390) 6.7 GM/DL 13.7-17.5 HEMATOCRIT (BEAKER) (test bavp=017) 20.5 % 40.1-51.0 MEAN CORPUSCULAR VOLUME (BEAKER) (test ofcn=811) 92.3 fL 79.0-92.2 MEAN CORPUSCULAR HEMOGLOBIN (BEAKER) (test ovwt=632) 30.2 pg 25.7-32.2 MEAN CORPUSCULAR HEMOGLOBIN CONC (BEAKER) (test rbst=401) 32.7 GM/DL 32.3-36.5 RED CELL DISTRIBUTION WIDTH (BEAKER) (test jqqc=750) 14.7 % 11.6-14.4 PLATELET COUNT (BEAKER) (test mrpa=934) 44 K/CU MM 150-450 MEAN PLATELET VOLUME (BEAKER) (test iniw=452) 11.2 fL 9.4-12.4 NUCLEATED RED BLOOD CELLS (BEAKER) (test yyhp=562) 0 /100 WBC 0-0 NEUTROPHILS RELATIVE PERCENT (BEAKER) (test qzaw=956) 77 % LYMPHOCYTES RELATIVE PERCENT (BEAKER) (test dwgo=826) 9 % MONOCYTES RELATIVE PERCENT (BEAKER) (test huaq=079) 8 % EOSINOPHILS RELATIVE PERCENT (BEAKER) (test dlzw=960) 4 % BASOPHILS RELATIVE PERCENT (BEAKER) (test bwis=032) 1 % NEUTROPHILS ABSOLUTE COUNT (BEAKER) (test hzhy=148) 2.23 K/ L 1.78-5.38 LYMPHOCYTES ABSOLUTE COUNT (BEAKER) (test stiz=483) 0.25 K/ L 1.32-3.57 MONOCYTES ABSOLUTE COUNT (BEAKER) (test zzfe=151) 0.24 K/ L 0.30-0.82 EOSINOPHILS ABSOLUTE COUNT (BEAKER) (test dlfa=632) 0.12 K/ L 0.04-0.54 BASOPHILS ABSOLUTE COUNT (BEAKER) (test xcbp=349) 0.02 K/ L 0.01-0.08 IMMATURE GRANULOCYTES-RELATIVE PERCENT (BEAKER) (test jbck=9303) 1 % 0-1 BASIC METABOLIC [id number] 06:42:00* Test Item Value Reference Range Comments SODIUM (BEAKER) (test kogr=714) 134 meq/L 136-145 POTASSIUM (BEAKER) (test azgt=110) 3.4 meq/L 3.5-5.1 CHLORIDE (BEAKER) (test rxcr=445) 101 meq/L 98-107 CO2 (BEAKER) (test lrvt=660) 22 meq/L 22-29 BLOOD UREA NITROGEN (BEAKER) (test mphr=749) 67 mg/dL 7-21 CREATININE (BEAKER) (test cktk=468) 3.86 mg/dL 0.57-1.25 GLUCOSE RANDOM (BEAKER) (test skfa=068) 98 mg/dL 70-105 CALCIUM (BEAKER) (test ikpu=715) 8.0 mg/dL 8.4-10.2 EGFR (BEAKER) (test hvlb=4466) 17 mL/min/1.73 sq m ESTIMATED GFR IS NOT ACCURATE CREATININE CLEARANCE IN PREDICTING GLOMERULAR FILTRATION RATE. ESTIMATED GFR IS NOT APPLICABLE FOR DIALYSIS PATIENTS. [id number] 06:29:00* Test Item Value Reference Range Comments PHOSPHORUS (BEAKER) (test mqyz=036) 4.8 mg/dL 2.3-4.7 [id number] 06:29:00* Test Item Value Reference Range Comments MAGNESIUM (BEAKER) (test ryvj=598) 2.1 mg/dL 1.6-2.6 HEPATIC FUNCTION [id number] 06:29:00* Test Item Value Reference Range Comments TOTAL PROTEIN (BEAKER) (test ciyp=054) 5.6 gm/dL 6.0-8.3 ALBUMIN (BEAKER) (test doqo=4336) 3.2 g/dL 3.5-5.0 BILIRUBIN TOTAL (BEAKER) (test vlge=192) 1.0 mg/dL 0.2-1.2 BILIRUBIN DIRECT (BEAKER) (test lnbc=506) 0.7 mg/dL 0.1-0.5 ALKALINE PHOSPHATASE (BEAKER) (test thtf=483) 124 U/L 40-150 AST (SGOT) (BEAKER) (test acum=429) 14 U/L 5-34 ALT (SGPT) (BEAKER) (test rdrf=764) 9 U/L 6-55 [id number] 06:24:00* Test Item Value Reference Range Comments FERRITIN (BEAKER) (test pxst=043) 322 ng/mL 5-275 CALCIUM, [id number] 06:11:00* Test Item Value Reference Range Comments CALCIUM IONIZED (BEAKER) (test odii=068) 1.06 mmol/L 1.12-1.27 PH, BLOOD (BEAKER) (test gwzd=8864) 7.42 B-TYPE NATRIURETIC FACTOR (BNP)2019-04-08 06:08:00* Test Item Value Reference Range Comments B-TYPE NATRIURETIC PEPTIDE (BEAKER) (test dwpa=155) 99 pg/mL 0-100 PTH, [id number] 06:08:00* Test Item Value Reference Range Comments PARATHYROID HORMONE INTACT (BEAKER) (test iypx=034) 168.1 pg/mL 8.5-72.5 PROTHROMBIN TIME/[id number] 06:00:00* Test Item Value Reference Range Comments PROTIME (BEAKER) (test qcfs=738) 15.0 seconds 11.9-14.2 INR (BEAKER) (test okgn=111) 1.2 <=5.9 Effective 11/20/2018: PT Reference Range ChangeNew: 11.9-14.2 Previous: 11.7-14. 7RECOMMENDED COUMADIN/WARFARIN INR THERAPY RANGESSTANDARD DOSE: 2.0-3.0 Include s: PROPHYLAXIS for venous thrombosis, systemic embolization; TREATMENT for venou s thrombosis and/or pulmonary embolus.HIGH RISK: Target INR is 2.5-3.5 for patie nts wiht mechanical heart valves.IRON, TIBC, % SAT. (WITHOUT FERRITIN)2019-04-08 06:00:00* Test Item Value Reference Range Comments IRON (BEAKER) (test tpyi=211) 67.0 ug/dL 40.0-160.0 TOTAL IRON BINDING CAPACITY (BEAKER) (test gyua=009) 154 ug/dL 250-450 IRON % SATURATION (2) (BEAKER) (test rpep=4568) 44 % 20-55 CBC W/PLT COUNT & AUTO [id number] 05:50:00* Test Item Value Reference Range Comments WHITE BLOOD CELL COUNT (BEAKER) (test uiie=622) 3.1 K/ L 3.5-10.5 RED BLOOD CELL COUNT (BEAKER) (test zokf=844) 2.46 M/ L 4.63-6.08 HEMOGLOBIN (BEAKER) (test opml=135) 7.6 GM/DL 13.7-17.5 HEMATOCRIT (BEAKER) (test rbmy=519) 22.6 % 40.1-51.0 MEAN CORPUSCULAR VOLUME (BEAKER) (test libn=113) 91.9 fL 79.0-92.2 MEAN CORPUSCULAR HEMOGLOBIN (BEAKER) (test pgwd=544) 30.9 pg 25.7-32.2 MEAN CORPUSCULAR HEMOGLOBIN CONC (BEAKER) (test pxos=033) 33.6 GM/DL 32.3-36.5 RED CELL DISTRIBUTION WIDTH (BEAKER) (test pvlr=156) 14.8 % 11.6-14.4 PLATELET COUNT (BEAKER) (test uncv=148) 51 K/CU MM 150-450 MEAN PLATELET VOLUME (BEAKER) (test mtdw=359) 10.6 fL 9.4-12.4 NUCLEATED RED BLOOD CELLS (BEAKER) (test nthp=430) 0 /100 WBC 0-0 NEUTROPHILS RELATIVE PERCENT (BEAKER) (test ddnm=049) 85 % LYMPHOCYTES RELATIVE PERCENT (BEAKER) (test edbi=875) 5 % MONOCYTES RELATIVE PERCENT (BEAKER) (test lbyc=602) 5 % EOSINOPHILS RELATIVE PERCENT (BEAKER) (test zdfw=718) 4 % BASOPHILS RELATIVE PERCENT (BEAKER) (test ykif=695) 1 % NEUTROPHILS ABSOLUTE COUNT (BEAKER) (test yetz=098) 2.65 K/ L 1.78-5.38 LYMPHOCYTES ABSOLUTE COUNT (BEAKER) (test wdrv=504) 0.17 K/ L 1.32-3.57 MONOCYTES ABSOLUTE COUNT (BEAKER) (test tyst=779) 0.16 K/ L 0.30-0.82 EOSINOPHILS ABSOLUTE COUNT (BEAKER) (test xslf=659) 0.11 K/ L 0.04-0.54 BASOPHILS ABSOLUTE COUNT (BEAKER) (test jdmh=595) 0.02 K/ L 0.01-0.08 IMMATURE GRANULOCYTES-RELATIVE PERCENT (BEAKER) (test zltu=6022) 1 % 0-1 RETICULOCYTE [id number] 05:48:00* Test Item Value Reference Range Comments RETICULOCYTE COUNT PCT (BEAKER) (test ncrk=025) 1.7 % 0.5-1.8 U/S, [id number] 17:47:00Labs to be ordered:->No Labs NeededReason for exam:->therapeutic paracentesisFINAL REPORT Ultrasound guided paracentesis Clinical History: Ascites. Sedation: None. Operators: This procedure was performed by LAURENCE Colin under direct supervision of Dionicio Song M.D. [employer] Automatic: None. Estimated Blood Loss: < 1 cc. Specimen: 7000 cc of clear yellow fluid, samples sent to laboratory. Tech nique: Informed consent was obtained. The risks of pain, bleeding, infection, bowel perforation, injury to adjacent structures, and adverse medication reactio ns were discussed with the patient. After informed consent was obtained, the p atient's abdomen was scanned. The RLQ of the abdomen was selected for paracente sis. After the largest fluid pocket area was marked, and the anterior abdominal wall was evaluated with color Doppler to exclude presence of blood vessels gurmeet ersing the area, the skin was prepped and draped in the usual sterile manner. A fter local anesthesia was achieved with 2% lidocaine, a 5 Mal[place] one-step cathet er was advanced into the peritoneal cavity under ultrasound guidance. After comp letion of drainage, the catheter was removed. There was no evidence of complicat ion. Impression:Successful ultrasound guided paracentesis. Signed: Dionicio Song MDReport Verified Date/Time: 04/07/2019 17:47:53 Reading Location: [facility] [id number] Ultrasound Reading Room , CHEST, 1 VIEW, NON [id number] 13:26:00Reason for exam:->Fluid overloadFINAL REPORT RAD, CHEST, 1 VIEW, NON DEPT INDICATION: Fluid overload COMPARISON: 03/31/19 FINDINGS: Portable frontal view of the chest. IMPRESSION: Support Lines: None. Lungs and pleura: Right basilar atelectasis with trace effusions. No pneumothorax.Heart and mediastinum: Stable contours.Additional findings: None. Signed: JR Stanton Robert MDReport Verified Date/Time: 04/07/2019 13:26:57 Reading Location: [facility] Radiology Reading Room U/S, PELVIS, WITH [id number] 13:25:00Reason for exam:->For iliav vessel (arteries and veins) anatomy for kidney transplantFINAL REPORT PELVIC ULTRASOUND WITH DOPPLER EVALUATION History provided: Presurgical evaluation for renal transplant Grayscale, color Doppler, and spectral wave form analysis were performed. Evaluation technically difficult due to the patient's body habitus and presence of ascites. Distal abdominal aorta measures 2.1 cm in maximal diameter. Right common iliac artery measures 1.2 cm in diameter, and right external iliac artery 1.2 cm. Left common iliac a rtery measures 8 mm in diameter, and left external iliac artery 9 mm. Normal Dop pler flow is identified within the common and external iliac arteries bilaterall y. Doppler flow demonstrating patency is identified within both common and exter nal iliac veins. IMPRESSION: Diameter of vessels as documented above. Normal Dop pler flows. Signed: Harris Knox MDReport Verified Date/Time: 04/07/2019 13:25: 36 Reading Location: [address] Radiology Reading Room FLUID CELL COUNT WITH [id number] 12:05:00* Test Item Value Reference Range Comments APPEARANCE FLUID (BEAKER) (test tclx=740) Clear Clear COLOR FLUID (BEAKER) (test dioh=553) Yellow Colorless, Straw RBC FLUID (BEAKER) (test xxbj=965) 45 /cu mm <=1 ADJUSTED WBC FLUID (BEAKER) (test mrvv=4739) 57 /cu mm <=5 LINING CELLS (BEAKER) (test xtda=7802) 2 /cu mm <=1 NEUTROPHILS FLUID (BEAKER) (test wsjh=4726) 1 % LYMPHS FLUID (BEAKER) (test vkwt=850) 14 % MONO/MACROPHAGE FLUID (BEAKER) (test yqte=958) 85 % EOSINOPHILS FLUID (BEAKER) (test piiq=572) 0 % BASO FLUID (BEAKER) (test nbkq=249) 0 % CONTAINER BODY FLUID (BEAKER) (test sqsd=5994) EDTA Tube BASIC METABOLIC [id number] 07:44:00* Test Item Value Reference Range Comments SODIUM (BEAKER) (test vsnf=903) 133 meq/L 136-145 POTASSIUM (BEAKER) (test msbb=300) 3.7 meq/L 3.5-5.1 CHLORIDE (BEAKER) (test qejw=873) 101 meq/L 98-107 CO2 (BEAKER) (test uril=988) 23 meq/L 22-29 BLOOD UREA NITROGEN (BEAKER) (test kimz=093) 65 mg/dL 7-21 CREATININE (BEAKER) (test ecrf=456) 3.88 mg/dL 0.57-1.25 GLUCOSE RANDOM (BEAKER) (test xlgn=303) 106 mg/dL 70-105 CALCIUM (BEAKER) (test hjdj=068) 8.1 mg/dL 8.4-10.2 EGFR (BEAKER) (test yqhl=9666) 16 mL/min/1.73 sq m ESTIMATED GFR IS NOT ACCURATE CREATININE CLEARANCE IN PREDICTING GLOMERULAR FILTRATION RATE. ESTIMATED GFR IS NOT APPLICABLE FOR DIALYSIS PATIENTS. CBC (HEMOGRAM ONLY)2019-04-07 06:37:00* Test Item Value Reference Range Comments WHITE BLOOD CELL COUNT (BEAKER) (test jqtr=789) 3.4 K/ L 3.5-10.5 RED BLOOD CELL COUNT (BEAKER) (test yyhl=209) 2.49 M/ L 4.63-6.08 HEMOGLOBIN (BEAKER) (test bwsj=896) 7.5 GM/DL 13.7-17.5 HEMATOCRIT (BEAKER) (test lewi=948) 23.1 % 40.1-51.0 MEAN CORPUSCULAR VOLUME (BEAKER) (test ohnt=321) 92.8 fL 79.0-92.2 MEAN CORPUSCULAR HEMOGLOBIN (BEAKER) (test dely=644) 30.1 pg 25.7-32.2 MEAN CORPUSCULAR HEMOGLOBIN CONC (BEAKER) (test ybeu=390) 32.5 GM/DL 32.3-36.5 RED CELL DISTRIBUTION WIDTH (BEAKER) (test gtkt=826) 14.9 % 11.6-14.4 PLATELET COUNT (BEAKER) (test egfi=222) 52 K/CU MM 150-450 MEAN PLATELET VOLUME (BEAKER) (test mvxw=685) 10.1 fL 9.4-12.4 NUCLEATED RED BLOOD CELLS (BEAKER) (test nvkh=656) 0 /100 WBC 0-0 BASIC METABOLIC [id number] 07:09:00* Test Item Value Reference Range Comments SODIUM (BEAKER) (test kozb=078) 135 meq/L 136-145 POTASSIUM (BEAKER) (test gsny=370) 3.6 meq/L 3.5-5.1 CHLORIDE (BEAKER) (test yrnf=630) 101 meq/L 98-107 CO2 (BEAKER) (test ywuy=610) 23 meq/L 22-29 BLOOD UREA NITROGEN (BEAKER) (test wugs=574) 66 mg/dL 7-21 CREATININE (BEAKER) (test nubu=257) 3.68 mg/dL 0.57-1.25 GLUCOSE RANDOM (BEAKER) (test kjmo=115) 96 mg/dL 70-105 CALCIUM (BEAKER) (test xnci=780) 8.6 mg/dL 8.4-10.2 EGFR (BEAKER) (test suwt=0417) 18 mL/min/1.73 sq m ESTIMATED GFR IS NOT ACCURATE CREATININE CLEARANCE IN PREDICTING GLOMERULAR FILTRATION RATE. ESTIMATED GFR IS NOT APPLICABLE FOR DIALYSIS PATIENTS. CBC (HEMOGRAM ONLY)2019-04-06 06:00:00* Test Item Value Reference Range Comments WHITE BLOOD CELL COUNT (BEAKER) (test uaue=215) 3.8 K/ L 3.5-10.5 RED BLOOD CELL COUNT (BEAKER) (test ydae=909) 2.88 M/ L 4.63-6.08 HEMOGLOBIN (BEAKER) (test hche=630) 8.7 GM/DL 13.7-17.5 HEMATOCRIT (BEAKER) (test pkaj=925) 26.0 % 40.1-51.0 MEAN CORPUSCULAR VOLUME (BEAKER) (test lwzf=658) 90.3 fL 79.0-92.2 MEAN CORPUSCULAR HEMOGLOBIN (BEAKER) (test jhvd=754) 30.2 pg 25.7-32.2 MEAN CORPUSCULAR HEMOGLOBIN CONC (BEAKER) (test woex=774) 33.5 GM/DL 32.3-36.5 RED CELL DISTRIBUTION WIDTH (BEAKER) (test sgrm=956) 14.6 % 11.6-14.4 PLATELET COUNT (BEAKER) (test dtmi=728) 61 K/CU MM 150-450 MEAN PLATELET VOLUME (BEAKER) (test blxy=672) 10.9 fL 9.4-12.4 NUCLEATED RED BLOOD CELLS (BEAKER) (test bcvs=671) 0 /100 WBC 0-0 BODY FLUID CULTURE + GRAM [id number] 12:00:00* Test Item Value Reference Range Comments CULTURE (BEAKER) (test sjso=3248) No growth GRAM STAIN RESULT (BEAKER) (test wily=6277) No WBCs GRAM STAIN RESULT (BEAKER) (test qsrw=47881) No organisms seen BASIC METABOLIC [id number] 05:12:00* Test Item Value Reference Range Comments SODIUM (BEAKER) (test vuew=279) 133 meq/L 136-145 POTASSIUM (BEAKER) (test xiif=722) 3.8 meq/L 3.5-5.1 CHLORIDE (BEAKER) (test gark=697) 102 meq/L 98-107 CO2 (BEAKER) (test mveo=605) 21 meq/L 22-29 BLOOD UREA NITROGEN (BEAKER) (test kioj=882) 64 mg/dL 7-21 CREATININE (BEAKER) (test qktk=180) 3.59 mg/dL 0.57-1.25 GLUCOSE RANDOM (BEAKER) (test quzn=635) 123 mg/dL 70-105 CALCIUM (BEAKER) (test tjzn=672) 7.9 mg/dL 8.4-10.2 EGFR (BEAKER) (test ohpv=0096) 18 mL/min/1.73 sq m ESTIMATED GFR IS NOT ACCURATE CREATININE CLEARANCE IN PREDICTING GLOMERULAR FILTRATION RATE. ESTIMATED GFR IS NOT APPLICABLE FOR DIALYSIS PATIENTS. CBC (HEMOGRAM ONLY)2019-04-05 04:55:00* Test Item Value Reference Range Comments WHITE BLOOD CELL COUNT (BEAKER) (test aaem=358) 2.9 K/ L 3.5-10.5 RED BLOOD CELL COUNT (BEAKER) (test xufk=245) 2.33 M/ L 4.63-6.08 HEMOGLOBIN (BEAKER) (test isto=614) 7.1 GM/DL 13.7-17.5 HEMATOCRIT (BEAKER) (test jaxd=832) 21.3 % 40.1-51.0 MEAN CORPUSCULAR VOLUME (BEAKER) (test corn=398) 91.4 fL 79.0-92.2 MEAN CORPUSCULAR HEMOGLOBIN (BEAKER) (test jwra=882) 30.5 pg 25.7-32.2 MEAN CORPUSCULAR HEMOGLOBIN CONC (BEAKER) (test mrbz=964) 33.3 GM/DL 32.3-36.5 RED CELL DISTRIBUTION WIDTH (BEAKER) (test binr=984) 14.7 % 11.6-14.4 PLATELET COUNT (BEAKER) (test cxbr=923) 54 K/CU MM 150-450 MEAN PLATELET VOLUME (BEAKER) (test tcdl=066) 11.0 fL 9.4-12.4 NUCLEATED RED BLOOD CELLS (BEAKER) (test zeta=029) 0 /100 WBC 0-0 HEPATIC FUNCTION [id number] 10:42:00* Test Item Value Reference Range Comments TOTAL PROTEIN (BEAKER) (test ttxw=136) 5.1 gm/dL 6.0-8.3 ALBUMIN (BEAKER) (test yycp=5003) 2.9 g/dL 3.5-5.0 BILIRUBIN TOTAL (BEAKER) (test xzgf=936) 0.9 mg/dL 0.2-1.2 BILIRUBIN DIRECT (BEAKER) (test qlni=331) 0.6 mg/dL 0.1-0.5 ALKALINE PHOSPHATASE (BEAKER) (test snaq=334) 114 U/L 40-150 AST (SGOT) (BEAKER) (test reaw=100) 13 U/L 5-34 ALT (SGPT) (BEAKER) (test unyb=240) 10 U/L 6-55 PROTHROMBIN [id number] 10:31:00* Test Item Value Reference Range Comments PROTIME (BEAKER) (test lmux=407) 16.3 seconds 11.9-14.2 INR (BEAKER) (test zflx=231) 1.4 <=5.9 Effective 11/20/2018: PT Reference Range ChangeNew: 11.9-14.2 Previous: 11.7-14. 7RECOMMENDED COUMADIN/WARFARIN INR THERAPY RANGESSTANDARD DOSE: 2.0-3.0 Include s: PROPHYLAXIS for venous thrombosis, systemic embolization; TREATMENT for venou s thrombosis and/or pulmonary embolus.HIGH RISK: Target INR is 2.5-3.5 for patie nts wiht mechanical heart valves.[id number] 08:11:00* Test Item Value Reference Range Comments PHOSPHORUS (BEAKER) (test wqze=681) 4.6 mg/dL 2.3-4.7 [id number] 08:11:00* Test Item Value Reference Range Comments MAGNESIUM (BEAKER) (test fseb=538) 1.9 mg/dL 1.6-2.6 COMPREHENSIVE METABOLIC [id number] 08:11:00* Test Item Value Reference Range Comments TOTAL PROTEIN (BEAKER) (test ephs=541) 5.7 gm/dL 6.0-8.3 ALBUMIN (BEAKER) (test cfzx=7220) 3.3 g/dL 3.5-5.0 ALKALINE PHOSPHATASE (BEAKER) (test ovdc=759) 119 U/L 40-150 BILIRUBIN TOTAL (BEAKER) (test ffsu=117) 0.9 mg/dL 0.2-1.2 SODIUM (BEAKER) (test xwnt=545) 134 meq/L 136-145 POTASSIUM (BEAKER) (test urpk=077) 4.0 meq/L 3.5-5.1 CHLORIDE (BEAKER) (test zzfd=473) 102 meq/L 98-107 CO2 (BEAKER) (test ctoz=028) 20 meq/L 22-29 BLOOD UREA NITROGEN (BEAKER) (test xghn=158) 69 mg/dL 7-21 CREATININE (BEAKER) (test kehg=380) 3.53 mg/dL 0.57-1.25 GLUCOSE RANDOM (BEAKER) (test tauy=874) 93 mg/dL 70-105 CALCIUM (BEAKER) (test qbvy=119) 8.2 mg/dL 8.4-10.2 AST (SGOT) (BEAKER) (test dpiz=505) 14 U/L 5-34 ALT (SGPT) (BEAKER) (test siqn=974) 11 U/L 6-55 EGFR (BEAKER) (test zikt=1380) 18 mL/min/1.73 sq m ESTIMATED GFR IS NOT ACCURATE CREATININE CLEARANCE IN PREDICTING GLOMERULAR FILTRATION RATE. ESTIMATED GFR IS NOT APPLICABLE FOR DIALYSIS PATIENTS. CALCIUM, [id number] 08:04:00* Test Item Value Reference Range Comments CALCIUM IONIZED (BEAKER) (test umxt=600) 0.96 mmol/L 1.12-1.27 PH, BLOOD (BEAKER) (test oiar=5173) 7.54 CBC (HEMOGRAM ONLY)2019-04-04 07:33:00* Test Item Value Reference Range Comments WHITE BLOOD CELL COUNT (BEAKER) (test akgw=143) 3.1 K/ L 3.5-10.5 RED BLOOD CELL COUNT (BEAKER) (test udah=584) 2.45 M/ L 4.63-6.08 HEMOGLOBIN (BEAKER) (test hddq=360) 7.3 GM/DL 13.7-17.5 HEMATOCRIT (BEAKER) (test dfqk=405) 22.3 % 40.1-51.0 MEAN CORPUSCULAR VOLUME (BEAKER) (test uqxm=085) 91.0 fL 79.0-92.2 MEAN CORPUSCULAR HEMOGLOBIN (BEAKER) (test vyvo=801) 29.8 pg 25.7-32.2 MEAN CORPUSCULAR HEMOGLOBIN CONC (BEAKER) (test yvql=833) 32.7 GM/DL 32.3-36.5 RED CELL DISTRIBUTION WIDTH (BEAKER) (test rmpw=234) 14.6 % 11.6-14.4 PLATELET COUNT (BEAKER) (test umas=962) 56 K/CU MM 150-450 MEAN PLATELET VOLUME (BEAKER) (test obsi=532) 10.2 fL 9.4-12.4 NUCLEATED RED BLOOD CELLS (BEAKER) (test khyl=064) 0 /100 WBC 0-0 CALCIUM, [id number] 07:16:00* Test Item Value Reference Range Comments CALCIUM IONIZED (BEAKER) (test lntw=638) 0.94 mmol/L 1.12-1.27 PH, BLOOD (BEAKER) (test qvog=8544) 7.43 CALCIUM, [id number] 07:10:00* Test Item Value Reference Range Comments CALCIUM IONIZED (BEAKER) (test ueue=919) 0.99 mmol/L 1.12-1.27 PH, BLOOD (BEAKER) (test ciro=5154) 7.43 COMPREHENSIVE METABOLIC [id number] 07:00:00* Test Item Value Reference Range Comments TOTAL PROTEIN (BEAKER) (test ivdh=930) 5.5 gm/dL 6.0-8.3 ALBUMIN (BEAKER) (test qkta=3513) 3.1 g/dL 3.5-5.0 ALKALINE PHOSPHATASE (BEAKER) (test jspg=517) 112 U/L 40-150 BILIRUBIN TOTAL (BEAKER) (test yxsm=543) 1.2 mg/dL 0.2-1.2 SODIUM (BEAKER) (test adwi=047) 135 meq/L 136-145 POTASSIUM (BEAKER) (test kwnb=587) 3.3 meq/L 3.5-5.1 CHLORIDE (BEAKER) (test amsz=164) 102 meq/L 98-107 CO2 (BEAKER) (test jabe=440) 22 meq/L 22-29 BLOOD UREA NITROGEN (BEAKER) (test ekqc=910) 72 mg/dL 7-21 CREATININE (BEAKER) (test ortz=914) 3.85 mg/dL 0.57-1.25 GLUCOSE RANDOM (BEAKER) (test atsz=025) 94 mg/dL 70-105 CALCIUM (BEAKER) (test ayxa=953) 7.9 mg/dL 8.4-10.2 AST (SGOT) (BEAKER) (test hltn=928) 16 U/L 5-34 ALT (SGPT) (BEAKER) (test naip=373) 11 U/L 6-55 EGFR (BEAKER) (test vobw=9123) 17 mL/min/1.73 sq m ESTIMATED GFR IS NOT ACCURATE CREATININE CLEARANCE IN PREDICTING GLOMERULAR FILTRATION RATE. ESTIMATED GFR IS NOT APPLICABLE FOR DIALYSIS PATIENTS. [id number] 06:56:00* Test Item Value Reference Range Comments PHOSPHORUS (BEAKER) (test jvbh=213) 5.3 mg/dL 2.3-4.7 [id number] 06:56:00* Test Item Value Reference Range Comments MAGNESIUM (BEAKER) (test jnuq=446) 1.9 mg/dL 1.6-2.6 CBC W/PLT COUNT & AUTO [id number] 06:49:00* Test Item Value Reference Range Comments WHITE BLOOD CELL COUNT (BEAKER) (test gakd=337) 3.0 K/ L 3.5-10.5 RED BLOOD CELL COUNT (BEAKER) (test oalz=568) 2.37 M/ L 4.63-6.08 HEMOGLOBIN (BEAKER) (test tvgc=900) 7.2 GM/DL 13.7-17.5 HEMATOCRIT (BEAKER) (test vtoi=447) 21.3 % 40.1-51.0 MEAN CORPUSCULAR VOLUME (BEAKER) (test hmmp=962) 89.9 fL 79.0-92.2 MEAN CORPUSCULAR HEMOGLOBIN (BEAKER) (test mmau=825) 30.4 pg 25.7-32.2 MEAN CORPUSCULAR HEMOGLOBIN CONC (BEAKER) (test jtyy=254) 33.8 GM/DL 32.3-36.5 RED CELL DISTRIBUTION WIDTH (BEAKER) (test hpet=551) 14.9 % 11.6-14.4 PLATELET COUNT (BEAKER) (test wzzu=530) 55 K/CU MM 150-450 MEAN PLATELET VOLUME (BEAKER) (test kxwl=876) 10.4 fL 9.4-12.4 NUCLEATED RED BLOOD CELLS (BEAKER) (test bddl=710) 0 /100 WBC 0-0 NEUTROPHILS RELATIVE PERCENT (BEAKER) (test lyix=898) 77 % LYMPHOCYTES RELATIVE PERCENT (BEAKER) (test rgot=854) 8 % MONOCYTES RELATIVE PERCENT (BEAKER) (test fybc=913) 9 % EOSINOPHILS RELATIVE PERCENT (BEAKER) (test phjk=376) 4 % BASOPHILS RELATIVE PERCENT (BEAKER) (test oiyq=788) 1 % NEUTROPHILS ABSOLUTE COUNT (BEAKER) (test blig=999) 2.30 K/ L 1.78-5.38 LYMPHOCYTES ABSOLUTE COUNT (BEAKER) (test tdzi=387) 0.24 K/ L 1.32-3.57 MONOCYTES ABSOLUTE COUNT (BEAKER) (test oqmw=787) 0.28 K/ L 0.30-0.82 EOSINOPHILS ABSOLUTE COUNT (BEAKER) (test rqlk=740) 0.13 K/ L 0.04-0.54 BASOPHILS ABSOLUTE COUNT (BEAKER) (test znfn=901) 0.02 K/ L 0.01-0.08 IMMATURE GRANULOCYTES-RELATIVE PERCENT (BEAKER) (test sein=3943) 1 % 0-1 HEMOGLOBIN AND [id number] 14:33:00* Test Item Value Reference Range Comments HEMOGLOBIN (BEAKER) (test alhu=837) 6.4 GM/DL 13.7-17.5 HEMATOCRIT (BEAKER) (test ootk=723) 19.4 % 40.1-51.0 COMPREHENSIVE METABOLIC [id number] 02:47:00* Test Item Value Reference Range Comments TOTAL PROTEIN (BEAKER) (test wpvi=809) 5.4 gm/dL 6.0-8.3 ALBUMIN (BEAKER) (test yqhf=3410) 2.8 g/dL 3.5-5.0 ALKALINE PHOSPHATASE (BEAKER) (test psxo=228) 111 U/L 40-150 BILIRUBIN TOTAL (BEAKER) (test dmnf=738) 1.1 mg/dL 0.2-1.2 SODIUM (BEAKER) (test ywcd=813) 136 meq/L 136-145 POTASSIUM (BEAKER) (test kisi=329) 3.4 meq/L 3.5-5.1 CHLORIDE (BEAKER) (test eftq=254) 104 meq/L 98-107 CO2 (BEAKER) (test ebuv=210) 22 meq/L 22-29 BLOOD UREA NITROGEN (BEAKER) (test jfad=711) 74 mg/dL 7-21 CREATININE (BEAKER) (test dsaf=186) 3.88 mg/dL 0.57-1.25 GLUCOSE RANDOM (BEAKER) (test gjbp=297) 94 mg/dL 70-105 CALCIUM (BEAKER) (test byge=583) 7.8 mg/dL 8.4-10.2 AST (SGOT) (BEAKER) (test djzr=570) 21 U/L 5-34 ALT (SGPT) (BEAKER) (test ezvo=878) 13 U/L 6-55 EGFR (BEAKER) (test jglr=0293) 16 mL/min/1.73 sq m ESTIMATED GFR IS NOT ACCURATE CREATININE CLEARANCE IN PREDICTING GLOMERULAR FILTRATION RATE. ESTIMATED GFR IS NOT APPLICABLE FOR DIALYSIS PATIENTS. B-TYPE NATRIURETIC FACTOR (BNP)2019-04-02 02:41:00* Test Item Value Reference Range Comments B-TYPE NATRIURETIC PEPTIDE (BEAKER) (test jtdw=998) 152 pg/mL 0-100 URIC [id number] 02:40:00* Test Item Value Reference Range Comments URIC ACID (BEAKER) (test bryp=519) 11.6 mg/dL 2.6-7.2 [id number] 02:40:00* Test Item Value Reference Range Comments MAGNESIUM (BEAKER) (test insq=070) 1.9 mg/dL 1.6-2.6 [id number] 02:40:00* Test Item Value Reference Range Comments PHOSPHORUS (BEAKER) (test foqo=303) 5.8 mg/dL 2.3-4.7 CBC W/PLT COUNT & AUTO [id number] 02:11:00* Test Item Value Reference Range Comments WHITE BLOOD CELL COUNT (BEAKER) (test msmi=241) 2.8 K/ L 3.5-10.5 RED BLOOD CELL COUNT (BEAKER) (test ozkt=632) 2.19 M/ L 4.63-6.08 HEMOGLOBIN (BEAKER) (test zrhh=941) 6.8 GM/DL 13.7-17.5 HEMATOCRIT (BEAKER) (test zaui=789) 20.0 % 40.1-51.0 MEAN CORPUSCULAR VOLUME (BEAKER) (test htnk=447) 91.3 fL 79.0-92.2 MEAN CORPUSCULAR HEMOGLOBIN (BEAKER) (test atve=985) 31.1 pg 25.7-32.2 MEAN CORPUSCULAR HEMOGLOBIN CONC (BEAKER) (test snfy=921) 34.0 GM/DL 32.3-36.5 RED CELL DISTRIBUTION WIDTH (BEAKER) (test opnj=136) 15.1 % 11.6-14.4 PLATELET COUNT (BEAKER) (test tmbg=953) 62 K/CU MM 150-450 MEAN PLATELET VOLUME (BEAKER) (test addr=262) 10.2 fL 9.4-12.4 NUCLEATED RED BLOOD CELLS (BEAKER) (test iuzg=419) 0 /100 WBC 0-0 NEUTROPHILS RELATIVE PERCENT (BEAKER) (test jlwb=195) 78 % LYMPHOCYTES RELATIVE PERCENT (BEAKER) (test lxkj=912) 9 % MONOCYTES RELATIVE PERCENT (BEAKER) (test sknm=282) 8 % EOSINOPHILS RELATIVE PERCENT (BEAKER) (test pjbj=663) 5 % BASOPHILS RELATIVE PERCENT (BEAKER) (test zayp=777) 0 % NEUTROPHILS ABSOLUTE COUNT (BEAKER) (test ftsi=804) 2.17 K/ L 1.78-5.38 LYMPHOCYTES ABSOLUTE COUNT (BEAKER) (test hmsn=330) 0.24 K/ L 1.32-3.57 MONOCYTES ABSOLUTE COUNT (BEAKER) (test nbfu=112) 0.22 K/ L 0.30-0.82 EOSINOPHILS ABSOLUTE COUNT (BEAKER) (test ewdt=645) 0.14 K/ L 0.04-0.54 BASOPHILS ABSOLUTE COUNT (BEAKER) (test mbrl=560) 0.01 K/ L 0.01-0.08 IMMATURE GRANULOCYTES-RELATIVE PERCENT (BEAKER) (test mqoc=2321) 0 % 0-1 CALCIUM, [id number] 02:05:00* Test Item Value Reference Range Comments CALCIUM IONIZED (BEAKER) (test ppsk=097) 1.01 mmol/L 1.12-1.27 PH, BLOOD (BEAKER) (test tucm=9223) 7.43 PH, BODY [id number] 19:51:00* Test Item Value Reference Range Comments PH, BODY FLUID (BEAKER) (test wste=2870) 7.73 LACTATE DEHYDROGENASE (LDH), BODY [id number] 19:23:00* Test Item Value Reference Range Comments LACTATE DEHYDROGENASE FLUID (BEAKER) (test oznz=812) < U/L Absence of reference range indicates that normals have not been defined.Assay pe rformance has not been validated for this type of specimen.CREATININE, RANDOM [id number] 19:05:00* Test Item Value Reference Range Comments CREATININE URINE (BEAKER) (test beht=587) 74.2 mg/dL Reference Range: No NormalsPROTEIN, RANDOM [id number] 19:05:00* Test Item Value Reference Range Comments PROTEIN, URINE (BEAKER) (test tmax=4138) 11 mg/dL 0-14 URINALYSIS W/ [id number] 18:34:00* Test Item Value Reference Range Comments COLOR (BEAKER) (test fonx=455) Yellow CLARITY (BEAKER) (test vcvt=169) Clear SPECIFIC GRAVITY UA (BEAKER) (test kluf=175) 1.010 1.001-1.035 PH UA (BEAKER) (test fpts=055) 5.0 5.0-8.0 PROTEIN UA (BEAKER) (test ifpp=964) Negative Negative GLUCOSE UA (BEAKER) (test rjec=360) Negative Negative KETONES UA (BEAKER) (test vbyx=463) Negative Negative BILIRUBIN UA (BEAKER) (test tsdf=687) Negative Negative BLOOD UA (BEAKER) (test hjgg=414) Negative Negative NITRITE UA (BEAKER) (test omsc=414) Negative Negative LEUKOCYTE ESTERASE UA (BEAKER) (test wpzb=103) Negative Negative UROBILINOGEN UA (BEAKER) (test eqnd=926) 0.2 mg/dL 0.2-1.0 RBC UA (BEAKER) (test nfrm=012) < /HPF WBC UA (BEAKER) (test vkcr=029) 2 /HPF MUCUS (BEAKER) (test phdj=2989) Rare HYALINE CASTS (BEAKER) (test yyvv=759) 31 /LPF SOURCE(BEAKER) (test lgcc=6560) ALBUMIN, BODY [id number] 18:28:00* Test Item Value Reference Range Comments ALBUMIN FLUID (BEAKER) (test xrtb=704) 0.7 gm/dL Reference Range: No Normals Assay performance has not been validated for this type of specimen.BODY FLUID CELL COUNT WITH [id number] 18:15:00* Test Item Value Reference Range Comments APPEARANCE FLUID (BEAKER) (test dmll=713) Clear Clear COLOR FLUID (BEAKER) (test eihy=537) Yellow Colorless, Straw RBC FLUID (BEAKER) (test ewam=005) 20 /cu mm <=1 ADJUSTED WBC FLUID (BEAKER) (test plxf=5393) 41 /cu mm <=5 LINING CELLS (BEAKER) (test recq=4626) 0 /cu mm <=1 NEUTROPHILS FLUID (BEAKER) (test argo=9472) 0 % LYMPHS FLUID (BEAKER) (test mzeq=491) 15 % MONO/MACROPHAGE FLUID (BEAKER) (test zxmg=121) 85 % EOSINOPHILS FLUID (BEAKER) (test ikmz=120) 0 % BASO FLUID (BEAKER) (test qebc=679) 0 % CONTAINER BODY FLUID (BEAKER) (test zyom=1191) EDTA Tube PROTEIN, BODY [id number] 18:07:00* Test Item Value Reference Range Comments PROTEIN FLUID (BEAKER) (test pszz=031) 1.3 g/dL Absence of reference range indicates that normals have not been defined.Assay pe rformance has not been validated for this type of specimen.GLUCOSE, BODY FLUID 2019-04-01 18:07:00* Test Item Value Reference Range Comments GLUCOSE, BODY FLUID (BEAKER) (test dhpg=4230) 122 mg/dL Absence of reference range indicates that normals have not been defined.Assay pe rformance has not been validated for this type of specimen.U/S, RENAL, COMPLETE 2019-04-01 18:02:00Reason for exam:->AKIShould this be performed at the bedside?->YesFINAL REPORT Renal ultrasound dated 04/01/2019 Comment: Real-time transabdominal renal ultrasound was performed.Right kidney measures 11.4 x 6.2 x 5.9 cm. Left kidney measures 10.3 x 5.0 x 5.3 cm. Right renal cortex measures 1.9 cm. Left renal cortex measures 2.0 cm. Echogenicity of both renal parenchyma is normal. No hydronephrosis, solid or cystic mass seen. The urinary bladder measures 292 cc. Doppler ultrasound demonstrates patent main renal artery and vein bilaterally. Small amount of ascites is seen in the abdomen. Impression: 1. Ascites.2. Unremarkable renal ultrasound. Signed: Oli Engelort Verified Date/Time: 04/01/2019 18:02:21 Reading Location: [facility] [id number] Consult Reading Room U/S, [id number] 17:42:00Limit to 8lLabs to be ordered:->Other (please add comment)Reason for exam:->ascitesShould this be performed at the bedside?->No FINAL REPORT Ultrasound guided paracentesis Clinical Hist ory: Ascites. Sedation: None. Taxi Driver: LAURENCE Condon Supervising Physician: Dr. David Hernandes Turner And Former Automatic: None. Estimated Blood Loss: < 1 mL. Specimen: 8000 mL of cloudy yellow fluid, samples sent to laboratory. Technique: Informed consent was obtained. The risks of pain, bleeding, infection, bowel perforation, injury to adjacent structures, and adverse medication reactions were discussed with the patient. After informed consent was obtained, the patient's abdomen was scanned. The right lower quadrant of the abdomen was selected for paracentesis. After the largest fluid pocket area was marked, and the anterior abdominal wall was evaluated with color Doppler to exclude presence of blood vessels traversing the area, the skin was prepped and draped in the usual sterile manner. After local anesthesia was achieved with lidocaine, a 5 [place] one-step catheter was advanced into the peritoneal cavity under ultrasound guidance. After completion of drainage, the catheter was removed. There was no evidence of complication. Impression:Successful ultrasound guided paracentesis. Signed: David Hernandes MDReport Verified Date/Time: 04/01/2019 17:42:40 Reading Location: [address] Ultrasound Reading Room W/PLT COUNT & AUTO [id number] 09:35:00* Test Item Value Reference Range Comments WHITE BLOOD CELL COUNT (BEAKER) (test sano=869) 3.8 K/ L 3.5-10.5 RED BLOOD CELL COUNT (BEAKER) (test telf=197) 2.36 M/ L 4.63-6.08 HEMOGLOBIN (BEAKER) (test aelp=862) 7.2 GM/DL 13.7-17.5 HEMATOCRIT (BEAKER) (test didd=426) 21.8 % 40.1-51.0 MEAN CORPUSCULAR VOLUME (BEAKER) (test avba=638) 92.4 fL 79.0-92.2 MEAN CORPUSCULAR HEMOGLOBIN (BEAKER) (test iifz=079) 30.5 pg 25.7-32.2 MEAN CORPUSCULAR HEMOGLOBIN CONC (BEAKER) (test ydeg=994) 33.0 GM/DL 32.3-36.5 RED CELL DISTRIBUTION WIDTH (BEAKER) (test banv=121) 15.1 % 11.6-14.4 PLATELET COUNT (BEAKER) (test zmue=496) 67 K/CU MM 150-450 MEAN PLATELET VOLUME (BEAKER) (test xhwk=777) 10.6 fL 9.4-12.4 NUCLEATED RED BLOOD CELLS (BEAKER) (test ixkt=936) 0 /100 WBC 0-0 NEUTROPHILS RELATIVE PERCENT (BEAKER) (test oehh=549) 81 % LYMPHOCYTES RELATIVE PERCENT (BEAKER) (test rujs=823) 7 % MONOCYTES RELATIVE PERCENT (BEAKER) (test bnwk=245) 8 % EOSINOPHILS RELATIVE PERCENT (BEAKER) (test bwzu=048) 3 % BASOPHILS RELATIVE PERCENT (BEAKER) (test apaz=286) 1 % NEUTROPHILS ABSOLUTE COUNT (BEAKER) (test sicq=398) 3.04 K/ L 1.78-5.38 LYMPHOCYTES ABSOLUTE COUNT (BEAKER) (test cvgl=082) 0.28 K/ L 1.32-3.57 MONOCYTES ABSOLUTE COUNT (BEAKER) (test lcew=751) 0.29 K/ L 0.30-0.82 EOSINOPHILS ABSOLUTE COUNT (BEAKER) (test rcwe=130) 0.11 K/ L 0.04-0.54 BASOPHILS ABSOLUTE COUNT (BEAKER) (test rtyd=519) 0.02 K/ L 0.01-0.08 IMMATURE GRANULOCYTES-RELATIVE PERCENT (BEAKER) (test gahx=1188) 1 % 0-1 BASIC METABOLIC [id number] 02:12:00* Test Item Value Reference Range Comments SODIUM (BEAKER) (test eyep=590) 136 meq/L 136-145 POTASSIUM (BEAKER) (test hicb=718) 3.1 meq/L 3.5-5.1 CHLORIDE (BEAKER) (test bnyk=031) 104 meq/L 98-107 CO2 (BEAKER) (test vfoo=442) 20 meq/L 22-29 BLOOD UREA NITROGEN (BEAKER) (test bity=337) 71 mg/dL 7-21 CREATININE (BEAKER) (test ympd=951) 3.75 mg/dL 0.57-1.25 GLUCOSE RANDOM (BUFFYAKER) (test nmes=707) 124 mg/dL 70-105 CALCIUM (BEAKER) (test rwue=508) 8.0 mg/dL 8.4-10.2 EGFR (JACKI) (test hfbm=3048) 17 mL/min/1.73 sq m ESTIMATED GFR IS NOT ACCURATE CREATININE CLEARANCE IN PREDICTING GLOMERULAR FILTRATION RATE. ESTIMATED GFR IS NOT APPLICABLE FOR DIALYSIS PATIENTS. PROTHROMBIN TIME/[id number] 01:52:00* Test Item Value Reference Range Comments PROTIME (JACKI) (test uydg=776) 16.0 seconds 11.9-14.2 INR (JACKI) (test aohg=392) 1.4 <=5.9 Effective 11/20/2018: PT Reference Range ChangeNew: 11.9-14.2 Previous: 11.7-14. 7RECOMMENDED COUMADIN/WARFARIN INR THERAPY RANGESSTANDARD DOSE: 2.0-3.0 Include s: PROPHYLAXIS for venous thrombosis, systemic embolization; TREATMENT for venou s thrombosis and/or pulmonary embolus.HIGH RISK: Target INR is 2.5-3.5 for patie nts wiht mechanical heart valves.RAD, CHEST, 1 VIEW, NON [id number] 20:30:00 Reason for exam:->chest painShould this be performed at the bedside?->YesFINAL REPORT Chest one view. Clinical history: chest pain Comparison: Chest radiograph 03/07/2019. Technique: A single frontal view of the chest was obtained. Findings: The cardiac silhouette is mildly enlarged. There are low lung volumes. There is pulmonary vascular congestion. There are bibasi lar airspace opacities which may represent atelectasis and/or pneumonia. There i s a small right pleural effusion. There is no pneumothorax. The bony thorax is d emineralized but otherwise unremarkable. Impression:Mild cardiomegaly.Pulmonary vascular congestion and small right pleural effusion. Bibasilar opacities which may represent atelectasis and/or pneumonia. Signed: Aly Cantu Date/Time: 03/31/2019 20:30:03 [id number] 20:20:00* Test Item Value Reference Range Comments AMMONIA (BEAKER) (test epph=626) 75 mol/L 18-72 TROPONIN [id number] 20:18:00* Test Item Value Reference Range Comments TROPONIN I (BEAKER) (test vthw=603) 0.01 ng/mL 0.00-0.03 Troponin I (TnI) levels must be interpreted in the context of the presenting sym ptoms and the clinical findings. Elevated TnI levels indicate myocardial damage, but are not specific for ischemic heart disease. Elevated TnI levels are seen in patients with other cardiac conditions (including myocarditis and congestive h eart failure), and slight TnI elevations occur in patients with other conditions , including sepsis, renal failure, acidosis, acute neurological disease, and per sistent tachyarrhythmia.COMPREHENSIVE METABOLIC [id number] 20:12:00* Test Item Value Reference Range Comments TOTAL PROTEIN (BEAKER) (test iihw=886) 5.8 gm/dL 6.0-8.3 ALBUMIN (BEAKER) (test mtwd=8972) 2.8 g/dL 3.5-5.0 ALKALINE PHOSPHATASE (BEAKER) (test fjvh=370) 123 U/L 40-150 BILIRUBIN TOTAL (BEAKER) (test xrgq=374) 0.7 mg/dL 0.2-1.2 SODIUM (BEAKER) (test nulm=301) 136 meq/L 136-145 POTASSIUM (BEAKER) (test epzv=985) 3.0 meq/L 3.5-5.1 CHLORIDE (BEAKER) (test lndm=218) 104 meq/L 98-107 CO2 (BEAKER) (test rckx=850) 20 meq/L 22-29 BLOOD UREA NITROGEN (BEAKER) (test kfoy=247) 72 mg/dL 7-21 CREATININE (BEAKER) (test xqcs=177) 3.90 mg/dL 0.57-1.25 GLUCOSE RANDOM (BEAKER) (test qjmy=566) 131 mg/dL 70-105 CALCIUM (BEAKER) (test nehv=021) 8.0 mg/dL 8.4-10.2 AST (SGOT) (BEAKER) (test kaja=971) 16 U/L 5-34 ALT (SGPT) (BEAKER) (test exit=063) 15 U/L 6-55 EGFR (BEAKER) (test hoak=6996) 16 mL/min/1.73 sq m ESTIMATED GFR IS NOT ACCURATE CREATININE CLEARANCE IN PREDICTING GLOMERULAR FILTRATION RATE. ESTIMATED GFR IS NOT APPLICABLE FOR DIALYSIS PATIENTS. [id number] 20:11:00* Test Item Value Reference Range Comments MAGNESIUM (BEAKER) (test osjk=004) 2.0 mg/dL 1.6-2.6 [id number] 19:59:00* Test Item Value Reference Range Comments PROTIME (BEAKER) (test fcju=071) 16.2 seconds 11.9-14.2 INR (BEAKER) (test nnyc=142) 1.4 <=5.9 PARTIAL THROMBOPLASTIN TIME (BEAKER) (test luqf=290) 34.8 seconds 22.5-36.0 Effective 11/20/2018: PT Reference Range ChangeNew: 11.9-14.2 Previous: 11.7-14. 7RECOMMENDED COUMADIN/WARFARIN INR THERAPY RANGESSTANDARD DOSE: 2.0-3.0 Include s: PROPHYLAXIS for venous thrombosis, systemic embolization; TREATMENT for venou s thrombosis and/or pulmonary embolus.HIGH RISK: Target INR is 2.5-3.5 for patie nts wiht mechanical heart valves.CBC W/PLT COUNT & AUTO [id number] 19:49:00* Test Item Value Reference Range Comments WHITE BLOOD CELL COUNT (BEAKER) (test ltzz=358) 3.4 K/ L 3.5-10.5 RED BLOOD CELL COUNT (BEAKER) (test mzpf=595) 2.19 M/ L 4.63-6.08 HEMOGLOBIN (BEAKER) (test qxuq=945) 6.7 GM/DL 13.7-17.5 HEMATOCRIT (BEAKER) (test faxb=524) 20.3 % 40.1-51.0 MEAN CORPUSCULAR VOLUME (BEAKER) (test mffw=387) 92.7 fL 79.0-92.2 MEAN CORPUSCULAR HEMOGLOBIN (BEAKER) (test jowf=607) 30.6 pg 25.7-32.2 MEAN CORPUSCULAR HEMOGLOBIN CONC (BEAKER) (test lbrr=195) 33.0 GM/DL 32.3-36.5 RED CELL DISTRIBUTION WIDTH (BEAKER) (test wneb=969) 15.3 % 11.6-14.4 PLATELET COUNT (BEAKER) (test nlql=869) 74 K/CU MM 150-450 MEAN PLATELET VOLUME (BEAKER) (test bnzu=468) 10.1 fL 9.4-12.4 NUCLEATED RED BLOOD CELLS (BEAKER) (test rdjl=689) 0 /100 WBC 0-0 NEUTROPHILS RELATIVE PERCENT (BEAKER) (test dfrr=521) 80 % LYMPHOCYTES RELATIVE PERCENT (BEAKER) (test utce=298) 7 % MONOCYTES RELATIVE PERCENT (BEAKER) (test ekva=435) 9 % EOSINOPHILS RELATIVE PERCENT (BEAKER) (test emwa=609) 4 % BASOPHILS RELATIVE PERCENT (BEAKER) (test vxot=472) 1 % NEUTROPHILS ABSOLUTE COUNT (BEAKER) (test chqt=294) 2.68 K/ L 1.78-5.38 LYMPHOCYTES ABSOLUTE COUNT (BEAKER) (test expx=142) 0.22 K/ L 1.32-3.57 MONOCYTES ABSOLUTE COUNT (BEAKER) (test asrh=341) 0.29 K/ L 0.30-0.82 EOSINOPHILS ABSOLUTE COUNT (BEAKER) (test kgkd=264) 0.13 K/ L 0.04-0.54 BASOPHILS ABSOLUTE COUNT (BEAKER) (test tzjk=622) 0.02 K/ L 0.01-0.08 IMMATURE GRANULOCYTES-RELATIVE PERCENT (BEAKER) (test sbak=5713) 1 % 0-1 U/S, [id number] 16:49:00LIMIT PARACENTESIS to 5 LITERSAdminister 200 mL of albumin 25% (50 grams) IV x1 after paracentesis if 3 or more liters removed.Send ascitic fluid for cell count and differential.Reason for Exam:-> AscitesFINAL REPORT Ultrasound guided paracentesis Clinical History: Ascites. Sedation: None. Taxi Driver: Sharon Troy PA-C Supervising Physician: Dionicio Song MD Turner And Former Automatic: None. Estimated Blood Loss: < 1 mL. Specimen: 5000 mL of clear yellow fluid, samples sent to laboratory. Technique: Informed consent was obtained. The risks of pain, bleeding, infection, bowel perforation, injury to adjacent structures, and adverse medication reactions were discussed with the patient. After informed consent was obtained, the patient's abdomen was scanned. The right lower quadrant of the abdomen was selected for paracentesis. After the largest fluid pocket area was marked, and the anterior abdominal wall was evaluated with color Doppler to exclude presence of blood vessels traversing the area, the skin was prepped and draped in the usual sterile manner. After local anesthesia was achieved with lidocaine, a 5 Maldivian one-step catheter was advanced into the peritoneal cavity under ultrasound guidance. After completion of drainage, the catheter was removed. There was no evidence of complication. Impression:Successful ultrasound guided paracentesis. Signed: Dionicio Song MDReport Verified Date/Time: 03/24/2019 16:49:32 Reading Location: [address] Ultrasound Reading Room FLUID CELL COUNT WITH [id number] 11:16:00* Test Item Value Reference Range Comments APPEARANCE FLUID (BEAKER) (test vfja=736) Hazy Clear COLOR FLUID (BEAKER) (test taer=288) Yellow Colorless, Straw RBC FLUID (BEAKER) (test ccrs=661) 100 /cu mm <=1 ADJUSTED WBC FLUID (BEAKER) (test vrln=5904) 60 /cu mm <=5 LINING CELLS (BEAKER) (test qdww=9336) 0 /cu mm <=1 NEUTROPHILS FLUID (BEAKER) (test yvxi=7679) 1 % LYMPHS FLUID (BEAKER) (test keiv=880) 9 % MONO/MACROPHAGE FLUID (BEAKER) (test hiym=126) 90 % EOSINOPHILS FLUID (BEAKER) (test nffc=656) 0 % BASO FLUID (BEAKER) (test pkvq=175) 0 % CONTAINER BODY FLUID (BEAKER) (test xmix=8858) EDTA Tube U/S, [id number] 16:41:00LIMIT PARACENTESIS to 5 LITERSAdminister 200 mL of albumin 25% (50 grams) IV x1 after paracentesis if 3 or more liters removed.Send ascitic fluid for cell count and differential.Reason for Exam:-> AscitesFINAL REPORT Ultrasound guided paracentesis. Clinical History: Ascites. Sedation: None. Taxi Driver: Anabel Thornton PA-C Turner And Former Automatic: None. Estimated Blood Loss: < 1 cc. Specimen: 5000 cc of clear yellow fluid, samples sent to laboratory. Technique: Informed consent was obtained. The risks of pain, bleeding, infection, bowel perforation, injury to adjacent structures, and adverse medication reactions were discussed with the patient. After informed consent was obtained, the p atient's abdomen was scanned. The RLQ of the abdomen was selected for paracente sis. After the largest fluid pocket area was marked, and the anterior abdominal wall was evaluated with color Doppler to exclude presence of blood vessels gurmeet ersing the area, the skin was prepped and draped in the usual sterile manner. A fter local anesthesia was achieved with 2% lidocaine, a 5 Maldivian one-step cathet er was advanced into the peritoneal cavity under ultrasound guidance. After comp letion of drainage, the catheter was removed. There was no evidence of complicat ion. This procedure was performed by LAURENCE Colin under direct supervision of Timothy Kelly M.D. Impression:Successful ultrasound guided paracentesis. S igned: Timothy Kelly MDReport Verified Date/Time: 03/17/2019 16:41:15 Reading Location: [address] Ultrasound Reading Room FLUID CELL COUNT WITH [id number] 13:46:00* Test Item Value Reference Range Comments APPEARANCE FLUID (BEAKER) (test qsuh=123) Clear Clear COLOR FLUID (BEAKER) (test kfqe=963) Yellow Colorless, Straw RBC FLUID (BEAKER) (test gqpk=331) 50 /cu mm <=1 ADJUSTED WBC FLUID (BEAKER) (test cwrq=5308) 47 /cu mm <=5 LINING CELLS (BEAKER) (test zqzc=6681) 1 /cu mm <=1 NEUTROPHILS FLUID (BEAKER) (test fior=3896) 3 % LYMPHS FLUID (BEAKER) (test whhh=911) 21 % MONO/MACROPHAGE FLUID (BEAKER) (test mieo=355) 76 % EOSINOPHILS FLUID (BEAKER) (test yhgy=702) 0 % BASO FLUID (BEAKER) (test vnzh=508) 0 % CONTAINER BODY FLUID (BEAKER) (test reii=0398) Sterile Cup BODY FLUID CULTURE + GRAM [id number] 13:45:00* Test Item Value Reference Range Comments CULTURE (BEAKER) (test gdww=5249) No growth GRAM STAIN RESULT (BEAKER) (test kjdi=8273) <1+ WBCs GRAM STAIN RESULT (BEAKER) (test xenx=75477) No organisms seen U/S, [id number] 17:24:00[place] ONLY-Specify intra-procedure lab(s) to be performed:->Body Fluid Culture (w/Gram Stain, C\\T\\S)Reason for exam:-> decompensated cirrhosisShould this be performed at the bedside?->NoFINAL REPORT Ultrasound guided paracentesis. Clinical History: Ascites. Sedation: None. Taxi Driver: Anabel Thornton PA-C Turner And Former Automatic: None. Estimated Blood Loss: < 1 cc. Specimen: 5000 cc of clear yellow fluid, samples sent to laboratory. Technique: Informed consent was obtained. The risks of pain, bleeding, infection, bowel perforation, injury to adjacent structures, and adverse medication reactions were discussed with the patient. After informed consent was obtained, the patient's abdomen was scanned. The RLQ of the abdomen was selected for paracentesis. After the largest fluid pocket area was marked, and the anterior abdominal wall was evaluated with color Doppler to exclude presence of blood vessels traversing the area, the skin was prepped and draped in the usual sterile manner. After local anesthesia was achieved with 2% lidocaine, a 5 Maldivian one-step catheter was advanced into the peritoneal cavity under ultrasound guidance. After completion of drainage, the catheter was removed. There was no evidence of complication. Impression:Successful ultrasound guided paracentesis. Signed: Timbo Reilly MDReport Verified Date/Time: 03/14/2019 17:24:25 Reading Location: [facility] [id number] Ultrasound Reading Room -GLUCOSE [id number] 17:13:00* Test Item Value Reference Range Comments POC-GLUCOSE METER (BEAKER) (test blgy=2739) 119 mg/dL 70-110 TESTED AT [place] [address] TISSUE [id number] 16:49:00Surgical Pathology Report Case: [id number] Authorizing Provider: Rubens King Collected: 03/13/2019 1249 Ordering Location: [address] Received: 03/14/2019 1014 Service Pathologist: Carlene Francois MD Specimen: Biopsy, Ileocecal Valve, via jumbo frcp ILEOCECAL VALVE, BIOPSY: - POLYPOID INTESTINAL TYPE MUCOSA, NO SIGNIFICANT PATHOLOGIC CHANGES Signing Pathologist Direct Phone Line: [phone] signed by Carlene Francois MD on 03/14/2019 at 4:49 [id number]: colonoscopy, biopsy, ileocecal valve bxPre and postop diagnosis: Gastrointestinal hemorrhage, unspecified gastrointestinal hemorrhage typeBiopsy, ileocecal valve, via jumbo FRCPReceived in formalin labeled with the patient's name, accession number and "biopsy, ileocecal valve via jumbo frcp" are two pieces of rosario-soni, irregular, mucosal-covered tissues measuring 0.3 x 0.2 x 0.2 cm and 0.3 x 0.1 x 0.1 cm. The specimen is submitted in toto following filtration in cassette A1. SS/plPerformed.BODY FLUID CELL COUNT WITH [id number] 15:51:00* Test Item Value Reference Range Comments APPEARANCE FLUID (BEAKER) (test kkol=125) Clear Clear COLOR FLUID (BEAKER) (test nwbj=597) Yellow Colorless, Straw RBC FLUID (BEAKER) (test walu=064) 44 /cu mm <=1 ADJUSTED WBC FLUID (BEAKER) (test civh=8435) 32 /cu mm <=5 LINING CELLS (BEAKER) (test hpym=5177) 0 /cu mm <=1 NEUTROPHILS FLUID (BEAKER) (test jwtw=8312) 3 % LYMPHS FLUID (BEAKER) (test ovev=974) 20 % MONO/MACROPHAGE FLUID (BEAKER) (test mbfo=583) 76 % EOSINOPHILS FLUID (BEAKER) (test tmuj=345) 0 % BASO FLUID (BEAKER) (test dhmf=905) 1 % CONTAINER BODY FLUID (BEAKER) (test axeo=4469) EDTA Tube POCT-GLUCOSE [id number] 11:55:00* Test Item Value Reference Range Comments POC-GLUCOSE METER (BEAKER) (test iimt=9592) 151 mg/dL 70-110 TESTED AT [facility] [address] [place] [address] CBC W/PLT COUNT & AUTO [id number] 10:31:00* Test Item Value Reference Range Comments WHITE BLOOD CELL COUNT (BEAKER) (test tqjb=744) 5.1 K/ L 3.5-10.5 RED BLOOD CELL COUNT (BEAKER) (test rbwy=196) 2.47 M/ L 4.63-6.08 HEMOGLOBIN (BEAKER) (test iwmm=654) 7.4 GM/DL 13.7-17.5 HEMATOCRIT (BEAKER) (test roqc=374) 21.7 % 40.1-51.0 MEAN CORPUSCULAR VOLUME (BEAKER) (test eqrp=430) 87.9 fL 79.0-92.2 MEAN CORPUSCULAR HEMOGLOBIN (BEAKER) (test uohr=468) 30.0 pg 25.7-32.2 MEAN CORPUSCULAR HEMOGLOBIN CONC (BEAKER) (test cjop=151) 34.1 GM/DL 32.3-36.5 RED CELL DISTRIBUTION WIDTH (BEAKER) (test cake=582) 15.8 % 11.6-14.4 PLATELET COUNT (BEAKER) (test lncs=292) 53 K/CU MM 150-450 MEAN PLATELET VOLUME (BEAKER) (test trub=611) 10.3 fL 9.4-12.4 NUCLEATED RED BLOOD CELLS (BEAKER) (test ugoz=567) 0 /100 WBC 0-0 NEUTROPHILS RELATIVE PERCENT (BEAKER) (test jpad=045) 87 % LYMPHOCYTES RELATIVE PERCENT (BEAKER) (test nqmk=207) 5 % MONOCYTES RELATIVE PERCENT (BEAKER) (test xwxi=390) 5 % EOSINOPHILS RELATIVE PERCENT (BEAKER) (test kmxb=480) 2 % BASOPHILS RELATIVE PERCENT (BEAKER) (test kans=274) 1 % NEUTROPHILS ABSOLUTE COUNT (BEAKER) (test alnb=587) 4.47 K/ L 1.78-5.38 LYMPHOCYTES ABSOLUTE COUNT (BEAKER) (test hopd=563) 0.25 K/ L 1.32-3.57 MONOCYTES ABSOLUTE COUNT (BEAKER) (test wmty=664) 0.25 K/ L 0.30-0.82 EOSINOPHILS ABSOLUTE COUNT (BEAKER) (test rbis=818) 0.08 K/ L 0.04-0.54 BASOPHILS ABSOLUTE COUNT (BEAKER) (test igqo=240) 0.03 K/ L 0.01-0.08 IMMATURE GRANULOCYTES-RELATIVE PERCENT (BEAKER) (test pjsp=8662) 1 % 0-1 POCT-GLUCOSE [id number] 07:24:00* Test Item Value Reference Range Comments POC-GLUCOSE METER (BEAKER) (test gkta=6697) 124 mg/dL 70-110 TESTED AT [facility] [address] [address] CALCIUM, [id number] 07:17:00* Test Item Value Reference Range Comments CALCIUM IONIZED (BEAKER) (test tpyb=316) 1.00 mmol/L 1.12-1.27 PH, BLOOD (BEAKER) (test fgco=6634) 7.44 [id number] 07:02:00* Test Item Value Reference Range Comments PHOSPHORUS (BEAKER) (test lnkf=780) 5.4 mg/dL 2.3-4.7 [id number] 07:02:00* Test Item Value Reference Range Comments MAGNESIUM (BEAKER) (test yoyo=536) 1.6 mg/dL 1.6-2.6 HEPATIC FUNCTION [id number] 07:02:00* Test Item Value Reference Range Comments TOTAL PROTEIN (BEAKER) (test nbuo=811) 4.8 gm/dL 6.0-8.3 ALBUMIN (BEAKER) (test ydkm=9324) 2.6 g/dL 3.5-5.0 BILIRUBIN TOTAL (BEAKER) (test tqsv=965) 1.0 mg/dL 0.2-1.2 BILIRUBIN DIRECT (BEAKER) (test icbv=569) 0.8 mg/dL 0.1-0.5 ALKALINE PHOSPHATASE (BEAKER) (test cory=701) 91 U/L 40-150 AST (SGOT) (BEAKER) (test jujd=090) 15 U/L 5-34 ALT (SGPT) (BEAKER) (test wjfz=066) 11 U/L 6-55 COMPREHENSIVE METABOLIC [id number] 07:02:00* Test Item Value Reference Range Comments TOTAL PROTEIN (BEAKER) (test kcpl=648) 4.8 gm/dL 6.0-8.3 ALBUMIN (BEAKER) (test ksbh=6757) 2.6 g/dL 3.5-5.0 ALKALINE PHOSPHATASE (BEAKER) (test hjoz=138) 91 U/L 40-150 BILIRUBIN TOTAL (BEAKER) (test omjx=197) 1.0 mg/dL 0.2-1.2 SODIUM (BEAKER) (test kcug=029) 126 meq/L 136-145 POTASSIUM (BEAKER) (test sdvz=603) 3.8 meq/L 3.5-5.1 CHLORIDE (BEAKER) (test vqqp=851) 97 meq/L 98-107 CO2 (BEAKER) (test behs=417) 18 meq/L 22-29 BLOOD UREA NITROGEN (BEAKER) (test xywx=813) 59 mg/dL 7-21 CREATININE (BEAKER) (test qhwk=395) 3.23 mg/dL 0.57-1.25 GLUCOSE RANDOM (BEAKER) (test yyeo=440) 119 mg/dL 70-105 CALCIUM (BEAKER) (test xbaj=214) 7.4 mg/dL 8.4-10.2 AST (SGOT) (BEAKER) (test dvvn=407) 15 U/L 5-34 ALT (SGPT) (BEAKER) (test mfrq=983) 11 U/L 6-55 EGFR (BEAKER) (test jodk=2456) 20 mL/min/1.73 sq m ESTIMATED GFR IS NOT ACCURATE CREATININE CLEARANCE IN PREDICTING GLOMERULAR FILTRATION RATE. ESTIMATED GFR IS NOT APPLICABLE FOR DIALYSIS PATIENTS. PROTHROMBIN [id number] 05:32:00* Test Item Value Reference Range Comments PROTIME (BEAKER) (test kqhh=217) 16.4 seconds 11.9-14.2 INR (BEAKER) (test gosg=867) 1.4 <=5.9 Effective 11/20/2018: PT Reference Range ChangeNew: 11.9-14.2 Previous: 11.7-14. 7RECOMMENDED COUMADIN/WARFARIN INR THERAPY RANGESSTANDARD DOSE: 2.0-3.0 Include s: PROPHYLAXIS for venous thrombosis, systemic embolization; TREATMENT for venou s thrombosis and/or pulmonary embolus.HIGH RISK: Target INR is 2.5-3.5 for patie nts wiht mechanical heart valves.CBC W/PLT COUNT & AUTO [id number] 05:22:00* Test Item Value Reference Range Comments WHITE BLOOD CELL COUNT (BEAKER) (test afbi=904) 4.1 K/ L 3.5-10.5 RED BLOOD CELL COUNT (BEAKER) (test mvqe=656) 2.22 M/ L 4.63-6.08 HEMOGLOBIN (BEAKER) (test gxmy=577) 6.6 GM/DL 13.7-17.5 HEMATOCRIT (BEAKER) (test ketu=846) 19.6 % 40.1-51.0 MEAN CORPUSCULAR VOLUME (BEAKER) (test amut=384) 88.3 fL 79.0-92.2 MEAN CORPUSCULAR HEMOGLOBIN (BEAKER) (test axjy=846) 29.7 pg 25.7-32.2 MEAN CORPUSCULAR HEMOGLOBIN CONC (BEAKER) (test jcyl=237) 33.7 GM/DL 32.3-36.5 RED CELL DISTRIBUTION WIDTH (BEAKER) (test galv=491) 15.8 % 11.6-14.4 PLATELET COUNT (BEAKER) (test fnpz=906) 45 K/CU MM 150-450 MEAN PLATELET VOLUME (BEAKER) (test qyzi=436) 10.5 fL 9.4-12.4 NUCLEATED RED BLOOD CELLS (BEAKER) (test gpvx=448) 0 /100 WBC 0-0 NEUTROPHILS RELATIVE PERCENT (BEAKER) (test ozys=901) 86 % LYMPHOCYTES RELATIVE PERCENT (BEAKER) (test dmga=209) 5 % MONOCYTES RELATIVE PERCENT (BEAKER) (test qngo=390) 6 % EOSINOPHILS RELATIVE PERCENT (BEAKER) (test ouse=875) 2 % BASOPHILS RELATIVE PERCENT (BEAKER) (test tvfk=851) 1 % NEUTROPHILS ABSOLUTE COUNT (BEAKER) (test zrgt=805) 3.53 K/ L 1.78-5.38 LYMPHOCYTES ABSOLUTE COUNT (BEAKER) (test cguo=511) 0.21 K/ L 1.32-3.57 MONOCYTES ABSOLUTE COUNT (BEAKER) (test lofz=681) 0.26 K/ L 0.30-0.82 EOSINOPHILS ABSOLUTE COUNT (BEAKER) (test uhtj=296) 0.08 K/ L 0.04-0.54 BASOPHILS ABSOLUTE COUNT (BEAKER) (test yrwd=151) 0.02 K/ L 0.01-0.08 IMMATURE GRANULOCYTES-RELATIVE PERCENT (BEAKER) (test mwsm=2509) 1 % 0-1 POCT-GLUCOSE [id number] 22:14:00* Test Item Value Reference Range Comments POC-GLUCOSE METER (BEAKER) (test mkkq=1115) 127 mg/dL 70-110 TESTED AT [address] [address] POCT-GLUCOSE [id number] 15:52:00* Test Item Value Reference Range Comments POC-GLUCOSE METER (BEAKER) (test cixw=6179) 90 mg/dL 70-110 TESTED AT [address] [address] POCT-GLUCOSE [id number] 13:46:00* Test Item Value Reference Range Comments POC-GLUCOSE METER (BEAKER) (test rrvv=1647) 106 mg/dL 70-110 TESTED AT [address] [address] BODY FLUID CULTURE + GRAM [id number] 09:30:00* Test Item Value Reference Range Comments CULTURE (BEAKER) (test lyux=7016) No growth GRAM STAIN RESULT (BEAKER) (test hmew=3172) <1+ WBCs GRAM STAIN RESULT (BEAKER) (test ttal=91224) No organisms seen POCT-GLUCOSE [id number] 08:29:00* Test Item Value Reference Range Comments POC-GLUCOSE METER (BEAKER) (test rfgc=0920) 87 mg/dL 70-110 TESTED AT [address] [address] POCT-GLUCOSE [id number] 06:53:00* Test Item Value Reference Range Comments POC-GLUCOSE METER (BEAKER) (test xrdo=5002) 105 mg/dL 70-110 TESTED AT [address] [address] COMPREHENSIVE METABOLIC [id number] 05:16:00* Test Item Value Reference Range Comments TOTAL PROTEIN (BEAKER) (test fviz=131) 4.9 gm/dL 6.0-8.3 ALBUMIN (BEAKER) (test fqiv=8246) 2.7 g/dL 3.5-5.0 ALKALINE PHOSPHATASE (BEAKER) (test gigl=665) 88 U/L 40-150 BILIRUBIN TOTAL (BEAKER) (test subt=574) 1.2 mg/dL 0.2-1.2 SODIUM (BEAKER) (test nhbz=143) 128 meq/L 136-145 POTASSIUM (BEAKER) (test vkpt=210) 3.3 meq/L 3.5-5.1 CHLORIDE (BEAKER) (test wmxg=185) 97 meq/L 98-107 CO2 (BEAKER) (test isqf=842) 21 meq/L 22-29 BLOOD UREA NITROGEN (BEAKER) (test jtld=805) 60 mg/dL 7-21 CREATININE (BEAKER) (test etna=256) 3.10 mg/dL 0.57-1.25 GLUCOSE RANDOM (BEAKER) (test drgz=627) 97 mg/dL 70-105 CALCIUM (BEAKER) (test alug=368) 7.8 mg/dL 8.4-10.2 AST (SGOT) (BEAKER) (test xmap=405) 16 U/L 5-34 ALT (SGPT) (BEAKER) (test xcmu=853) 11 U/L 6-55 EGFR (BEAKER) (test apax=9460) 21 mL/min/1.73 sq m ESTIMATED GFR IS NOT ACCURATE CREATININE CLEARANCE IN PREDICTING GLOMERULAR FILTRATION RATE. ESTIMATED GFR IS NOT APPLICABLE FOR DIALYSIS PATIENTS. [id number] 05:13:00* Test Item Value Reference Range Comments PHOSPHORUS (BEAKER) (test vuke=712) 5.4 mg/dL 2.3-4.7 [id number] 05:13:00* Test Item Value Reference Range Comments MAGNESIUM (BEAKER) (test nfht=705) 1.6 mg/dL 1.6-2.6 PROTHROMBIN TIME/[id number] 04:33:00* Test Item Value Reference Range Comments PROTIME (BEAKER) (test svqb=231) 16.7 seconds 11.9-14.2 INR (BEAKER) (test cbiz=346) 1.4 <=5.9 Effective 11/20/2018: PT Reference Range ChangeNew: 11.9-14.2 Previous: 11.7-14. 7RECOMMENDED COUMADIN/WARFARIN INR THERAPY RANGESSTANDARD DOSE: 2.0-3.0 Include s: PROPHYLAXIS for venous thrombosis, systemic embolization; TREATMENT for venou s thrombosis and/or pulmonary embolus.HIGH RISK: Target INR is 2.5-3.5 for patie nts wiht mechanical heart valves.CALCIUM, [id number] 04:31:00* Test Item Value Reference Range Comments CALCIUM IONIZED (BEAKER) (test nqhq=853) 1.00 mmol/L 1.12-1.27 PH, BLOOD (BEAKER) (test licf=4500) 7.43 CBC W/PLT COUNT & AUTO [id number] 04:27:00* Test Item Value Reference Range Comments WHITE BLOOD CELL COUNT (BEAKER) (test urcq=678) 3.7 K/ L 3.5-10.5 RED BLOOD CELL COUNT (BEAKER) (test jblv=619) 2.43 M/ L 4.63-6.08 HEMOGLOBIN (BEAKER) (test xxev=328) 7.3 GM/DL 13.7-17.5 HEMATOCRIT (BEAKER) (test mylj=277) 21.0 % 40.1-51.0 MEAN CORPUSCULAR VOLUME (BEAKER) (test efbc=064) 86.4 fL 79.0-92.2 MEAN CORPUSCULAR HEMOGLOBIN (BEAKER) (test xmcj=420) 30.0 pg 25.7-32.2 MEAN CORPUSCULAR HEMOGLOBIN CONC (BEAKER) (test nluf=395) 34.8 GM/DL 32.3-36.5 RED CELL DISTRIBUTION WIDTH (BEAKER) (test qnto=822) 15.7 % 11.6-14.4 PLATELET COUNT (BEAKER) (test msan=056) 52 K/CU MM 150-450 MEAN PLATELET VOLUME (BEAKER) (test ngsj=471) 10.7 fL 9.4-12.4 NUCLEATED RED BLOOD CELLS (BEAKER) (test lfog=446) 0 /100 WBC 0-0 NEUTROPHILS RELATIVE PERCENT (BEAKER) (test xzle=822) 84 % LYMPHOCYTES RELATIVE PERCENT (BEAKER) (test aulx=964) 5 % MONOCYTES RELATIVE PERCENT (BEAKER) (test ehgn=097) 7 % EOSINOPHILS RELATIVE PERCENT (BEAKER) (test fihv=757) 3 % BASOPHILS RELATIVE PERCENT (BEAKER) (test ctrp=084) 1 % NEUTROPHILS ABSOLUTE COUNT (BEAKER) (test xrhn=037) 3.10 K/ L 1.78-5.38 LYMPHOCYTES ABSOLUTE COUNT (BEAKER) (test gkxj=713) 0.19 K/ L 1.32-3.57 MONOCYTES ABSOLUTE COUNT (BEAKER) (test lglr=752) 0.26 K/ L 0.30-0.82 EOSINOPHILS ABSOLUTE COUNT (BEAKER) (test uioo=196) 0.11 K/ L 0.04-0.54 BASOPHILS ABSOLUTE COUNT (BEAKER) (test wupl=604) 0.02 K/ L 0.01-0.08 IMMATURE GRANULOCYTES-RELATIVE PERCENT (BEAKER) (test jrgy=3469) 1 % 0-1 POCT-GLUCOSE [id number] 23:19:00* Test Item Value Reference Range Comments POC-GLUCOSE METER (BEAKER) (test egyy=4482) 122 mg/dL 70-110 TESTED AT [place] [id number] 13:37:00Medical Cytology Report Case: [id number] Authorizing Provider: Venkat Yang MD Collected: 03/10/2019 1732 Ordering Location: [address] Received: 03/11/2019 0928 Service Pathologist: Ab Chakraborty MD Specimen: Peritoneal Fluid PERITONEAL FLUID (CYTOSPINS): - NEGATIVE FOR MALIGNANCY - Reactive mesothelial cells present Signing Pathologist Direct Phone Line: [phone] signed by Ab Chakraborty MD on 03/12/2019 at 1:37 [id number]; hepatitis B, liver disease PERITONEAL FLUIDPrepared 4 cytospins from 1100 ml yellow fluidCollected: [id number]: [id number] [facility], Department of Pathology, [address] [place] [address], [facility], [facility] of [facility]ology, [address] [place] [address], Te l [phone] [facility], Department of Pathology, [address] [place] [address], JZMM-GLUCOSE [id number] 11:53:00* Test Item Value Reference Range Comments POC-GLUCOSE METER (BEAKER) (test hwyv=4645) 85 mg/dL 70-110 [address]ED AT [address] [address] HEPATIC FUNCTION [id number] 10:47:00* Test Item Value Reference Range Comments TOTAL PROTEIN (BEAKER) (test zbav=197) 5.0 gm/dL 6.0-8.3 ALBUMIN (BEAKER) (test xdpa=5319) 2.8 g/dL 3.5-5.0 BILIRUBIN TOTAL (BEAKER) (test qoel=859) 1.5 mg/dL 0.2-1.2 BILIRUBIN DIRECT (BEAKER) (test xagc=643) 0.9 mg/dL 0.1-0.5 ALKALINE PHOSPHATASE (BEAKER) (test ytmr=893) 83 U/L 40-150 AST (SGOT) (BEAKER) (test ugfp=507) 18 U/L 5-34 ALT (SGPT) (BEAKER) (test mozd=366) 11 U/L 6-55 POCT-GLUCOSE [id number] 07:51:00* Test Item Value Reference Range Comments POC-GLUCOSE METER (BEAKER) (test lljj=9850) 84 mg/dL 70-110 TESTED AT [place] [id number] [facility] [address] CBC W/PLT COUNT & AUTO [id number] 06:58:00* Test Item Value Reference Range Comments WHITE BLOOD CELL COUNT (BEAKER) (test vzya=787) 4.2 K/ L 3.5-10.5 RED BLOOD CELL COUNT (BEAKER) (test duew=770) 2.48 M/ L 4.63-6.08 HEMOGLOBIN (BEAKER) (test bszz=697) 7.5 GM/DL 13.7-17.5 HEMATOCRIT (BEAKER) (test awkk=618) 21.8 % 40.1-51.0 MEAN CORPUSCULAR VOLUME (BEAKER) (test gyvk=431) 87.9 fL 79.0-92.2 MEAN CORPUSCULAR HEMOGLOBIN (BEAKER) (test vkta=459) 30.2 pg 25.7-32.2 MEAN CORPUSCULAR HEMOGLOBIN CONC (BEAKER) (test heci=852) 34.4 GM/DL 32.3-36.5 RED CELL DISTRIBUTION WIDTH (BEAKER) (test pbie=480) 15.9 % 11.6-14.4 PLATELET COUNT (BEAKER) (test fzcp=856) 46 K/CU MM 150-450 MEAN PLATELET VOLUME (BEAKER) (test jrmy=519) 10.9 fL 9.4-12.4 NUCLEATED RED BLOOD CELLS (BEAKER) (test sfgp=077) 0 /100 WBC 0-0 NEUTROPHILS RELATIVE PERCENT (BEAKER) (test aepv=565) 84 % LYMPHOCYTES RELATIVE PERCENT (BEAKER) (test ctwe=676) 6 % MONOCYTES RELATIVE PERCENT (BEAKER) (test kuyr=020) 6 % EOSINOPHILS RELATIVE PERCENT (BEAKER) (test jyri=646) 4 % BASOPHILS RELATIVE PERCENT (BEAKER) (test eyxj=406) 1 % NEUTROPHILS ABSOLUTE COUNT (BEAKER) (test lubo=982) 3.51 K/ L 1.78-5.38 LYMPHOCYTES ABSOLUTE COUNT (BEAKER) (test bcyy=766) 0.24 K/ L 1.32-3.57 MONOCYTES ABSOLUTE COUNT (BEAKER) (test akdc=212) 0.23 K/ L 0.30-0.82 EOSINOPHILS ABSOLUTE COUNT (BEAKER) (test qria=550) 0.16 K/ L 0.04-0.54 BASOPHILS ABSOLUTE COUNT (BEAKER) (test zntq=263) 0.02 K/ L 0.01-0.08 IMMATURE GRANULOCYTES-RELATIVE PERCENT (BEAKER) (test agai=0799) 1 % 0-1 BASIC METABOLIC [id number] 06:27:00* Test Item Value Reference Range Comments SODIUM (BEAKER) (test cuak=323) 126 meq/L 136-145 POTASSIUM (BEAKER) (test mwce=576) 3.8 meq/L 3.5-5.1 CHLORIDE (BEAKER) (test euaa=188) 97 meq/L 98-107 CO2 (BEAKER) (test jwew=991) 18 meq/L 22-29 BLOOD UREA NITROGEN (BEAKER) (test ctbj=334) 66 mg/dL 7-21 CREATININE (BEAKER) (test igfw=208) 3.12 mg/dL 0.57-1.25 GLUCOSE RANDOM (BEAKER) (test domd=021) 75 mg/dL 70-105 CALCIUM (BEAKER) (test mfvc=520) 7.5 mg/dL 8.4-10.2 EGFR (BEAKER) (test egwb=8749) 21 mL/min/1.73 sq m ESTIMATED GFR IS NOT ACCURATE CREATININE CLEARANCE IN PREDICTING GLOMERULAR FILTRATION RATE. ESTIMATED GFR IS NOT APPLICABLE FOR DIALYSIS PATIENTS. [id number] 06:24:00* Test Item Value Reference Range Comments PHOSPHORUS (BEAKER) (test wgbz=526) 5.1 mg/dL 2.3-4.7 [id number] 06:24:00* Test Item Value Reference Range Comments MAGNESIUM (BEAKER) (test ktpg=603) 1.8 mg/dL 1.6-2.6 PROTHROMBIN [id number] 05:40:00* Test Item Value Reference Range Comments PROTIME (BEAKER) (test fogt=356) 16.1 seconds 11.9-14.2 INR (BEAKER) (test apjq=100) 1.4 <=5.9 Effective 11/20/2018: PT Reference Range ChangeNew: 11.9-14.2 Previous: 11.7-14. 7RECOMMENDED COUMADIN/WARFARIN INR THERAPY RANGESSTANDARD DOSE: 2.0-3.0 Include s: PROPHYLAXIS for venous thrombosis, systemic embolization; TREATMENT for venou s thrombosis and/or pulmonary embolus.HIGH RISK: Target INR is 2.5-3.5 for patie nts wiht mechanical heart valves.POCT-GLUCOSE [id number] 21:27:00* Test Item Value Reference Range Comments POC-GLUCOSE METER (BEAKER) (test ncay=9392) 144 mg/dL 70-110 [address]ED AT [address] [address] POCT-GLUCOSE [id number] 18:02:00* Test Item Value Reference Range Comments POC-GLUCOSE METER (BEAKER) (test amqm=6204) 95 mg/dL 70-110 TESTED AT [address] [address] POCT-GLUCOSE [id number] 14:16:00* Test Item Value Reference Range Comments POC-GLUCOSE METER (BEAKER) (test kvic=8414) 85 mg/dL 70-110 TESTED AT [address] [address] POCT-GLUCOSE [id number] 12:14:00* Test Item Value Reference Range Comments POC-GLUCOSE METER (BEAKER) (test lplk=0631) 88 mg/dL 70-110 TESTED AT [address] [place] [address] U/S, [id number] 12:11:00Limit fluid removal to 6 L. Please send ascitic fluid for cell count with differential, cultures and gram stainReason for exam:->Tense ascitesFINAL REPORT HISTORY : Ascites Operators: This procedure was performed by LAURENCE Condon under direct supervision of Dionicio Song M.D. Technique/findings:Informed written consent was obtained. Discussion of risks, benefits, and alternatives were made with the patient. The patient expressed understanding and agreed to proceed. A universal timeout was performed prior to starting the procedure. Initial ultrasound images demonstrate large volume of ascites. A pocket of fluid was identified in the right lower quadrant of the abdomen. This area was marked. The area was prepped and draped in the usual sterile fashion. 1% lidocaine was applied to the skin and deep soft tissues. A 5 Maldivian one-step catheter was inserted and removed from the peritoneal space and approximately 6.0 liters of clear yellow fluid was aspirated from the abdomen. Specimens were collected for the lab. There were no immediate complications. Impression: Successful ultrasound guided paracentesis with aspiration of 6.0 liters of fluid. Signed: Dionicio Song MDReport Verified Date/Time: 03/11/2019 12:11:40 Reading Location: [address] Body Reading Room C METABOLIC [id number] 08:42:00* Test Item Value Reference Range Comments SODIUM (BEAKER) (test lzxy=193) 126 meq/L 136-145 POTASSIUM (BEAKER) (test epcy=891) 3.8 meq/L 3.5-5.1 CHLORIDE (BEAKER) (test xsag=813) 97 meq/L 98-107 CO2 (BEAKER) (test koni=711) 20 meq/L 22-29 BLOOD UREA NITROGEN (BEAKER) (test cxsa=343) 69 mg/dL 7-21 CREATININE (BEAKER) (test jigd=306) 3.23 mg/dL 0.57-1.25 GLUCOSE RANDOM (BEAKER) (test ukcy=681) 83 mg/dL 70-105 CALCIUM (BEAKER) (test cgpe=332) 7.5 mg/dL 8.4-10.2 EGFR (BEAKER) (test slvh=1840) 20 mL/min/1.73 sq m ESTIMATED GFR IS NOT ACCURATE CREATININE CLEARANCE IN PREDICTING GLOMERULAR FILTRATION RATE. ESTIMATED GFR IS NOT APPLICABLE FOR DIALYSIS PATIENTS. [id number] 08:38:00* Test Item Value Reference Range Comments PHOSPHORUS (BEAKER) (test blsq=654) 5.2 mg/dL 2.3-4.7 [id number] 08:38:00* Test Item Value Reference Range Comments MAGNESIUM (BEAKER) (test skoy=138) 1.8 mg/dL 1.6-2.6 HEPATIC FUNCTION [id number] 08:38:00* Test Item Value Reference Range Comments TOTAL PROTEIN (BEAKER) (test ytla=004) 4.9 gm/dL 6.0-8.3 ALBUMIN (BEAKER) (test rxzq=2862) 2.8 g/dL 3.5-5.0 BILIRUBIN TOTAL (BEAKER) (test jwbv=827) 1.3 mg/dL 0.2-1.2 BILIRUBIN DIRECT (BEAKER) (test qsii=690) 0.8 mg/dL 0.1-0.5 ALKALINE PHOSPHATASE (BEAKER) (test ouxo=336) 71 U/L 40-150 AST (SGOT) (BEAKER) (test pvko=620) 15 U/L 5-34 ALT (SGPT) (BEAKER) (test lzhc=720) 11 U/L 6-55 POCT-GLUCOSE [id number] 08:27:00* Test Item Value Reference Range Comments POC-GLUCOSE METER (BEAKER) (test qzar=0348) 82 mg/dL 70-110 TESTED AT [facility] [address] [facility] [address] CALCIUM, [id number] 06:36:00* Test Item Value Reference Range Comments CALCIUM IONIZED (BEAKER) (test lfrd=569) 1.02 mmol/L 1.12-1.27 PH, BLOOD (BEAKER) (test rawq=2866) 7.43 PROTHROMBIN [id number] 05:46:00* Test Item Value Reference Range Comments PROTIME (BEAKER) (test igqn=773) 16.4 seconds 11.9-14.2 INR (BEAKER) (test yirw=256) 1.4 <=5.9 Effective 11/20/2018: PT Reference Range ChangeNew: 11.9-14.2 Previous: 11.7-14. 7RECOMMENDED COUMADIN/WARFARIN INR THERAPY RANGESSTANDARD DOSE: 2.0-3.0 Include s: PROPHYLAXIS for venous thrombosis, systemic embolization; TREATMENT for venou s thrombosis and/or pulmonary embolus.HIGH RISK: Target INR is 2.5-3.5 for patie nts wiht mechanical heart valves.B-TYPE NATRIURETIC FACTOR (BNP)2019-03-11 05:38:00* Test Item Value Reference Range Comments B-TYPE NATRIURETIC PEPTIDE (BEAKER) (test jumk=098) 69 pg/mL 0-100 CBC W/PLT COUNT & AUTO [id number] 05:37:00* Test Item Value Reference Range Comments WHITE BLOOD CELL COUNT (BEAKER) (test bdqn=784) 3.6 K/ L 3.5-10.5 RED BLOOD CELL COUNT (BEAKER) (test vyql=804) 2.34 M/ L 4.63-6.08 HEMOGLOBIN (BEAKER) (test tnhe=926) 7.1 GM/DL 13.7-17.5 HEMATOCRIT (BEAKER) (test alsn=246) 20.5 % 40.1-51.0 MEAN CORPUSCULAR VOLUME (BEAKER) (test kuyh=494) 87.6 fL 79.0-92.2 MEAN CORPUSCULAR HEMOGLOBIN (BEAKER) (test hgig=912) 30.3 pg 25.7-32.2 MEAN CORPUSCULAR HEMOGLOBIN CONC (BEAKER) (test wuws=180) 34.6 GM/DL 32.3-36.5 RED CELL DISTRIBUTION WIDTH (BEAKER) (test hajt=979) 15.7 % 11.6-14.4 PLATELET COUNT (BEAKER) (test wuep=342) 43 K/CU MM 150-450 MEAN PLATELET VOLUME (BEAKER) (test eioe=307) 10.4 fL 9.4-12.4 NUCLEATED RED BLOOD CELLS (BEAKER) (test hmbq=695) 0 /100 WBC 0-0 NEUTROPHILS RELATIVE PERCENT (BEAKER) (test bcmk=766) 80 % LYMPHOCYTES RELATIVE PERCENT (BEAKER) (test pgbr=226) 6 % MONOCYTES RELATIVE PERCENT (BEAKER) (test owxi=604) 8 % EOSINOPHILS RELATIVE PERCENT (BEAKER) (test xgix=078) 4 % BASOPHILS RELATIVE PERCENT (BEAKER) (test jqyl=741) 1 % NEUTROPHILS ABSOLUTE COUNT (BEAKER) (test gqco=208) 2.89 K/ L 1.78-5.38 LYMPHOCYTES ABSOLUTE COUNT (BEAKER) (test fpgh=176) 0.21 K/ L 1.32-3.57 MONOCYTES ABSOLUTE COUNT (BEAKER) (test avff=043) 0.30 K/ L 0.30-0.82 EOSINOPHILS ABSOLUTE COUNT (BEAKER) (test ekzg=740) 0.16 K/ L 0.04-0.54 BASOPHILS ABSOLUTE COUNT (BEAKER) (test yfqn=869) 0.02 K/ L 0.01-0.08 IMMATURE GRANULOCYTES-RELATIVE PERCENT (BEAKER) (test hevp=9317) 1 % 0-1 POCT-GLUCOSE [id number] 21:34:00* Test Item Value Reference Range Comments POC-GLUCOSE METER (BEAKER) (test ykrk=1360) 194 mg/dL 70-110 [address]ED AT [address] [address] ALPHA FETOPROTEIN (AFP), TUMOR [id number] 19:49:00* Test Item Value Reference Range Comments ALPHA-FETOPROTEIN (BEAKER) (test pysh=1329) < ng/mL <10.0 POCT-GLUCOSE [id number] 18:58:00* Test Item Value Reference Range Comments POC-GLUCOSE METER (BEAKER) (test fycu=8363) 94 mg/dL 70-110 TESTED AT [address] [address] BODY FLUID CELL COUNT WITH [id number] 18:46:00* Test Item Value Reference Range Comments APPEARANCE FLUID (BEAKER) (test lvjv=319) Clear Clear COLOR FLUID (BEAKER) (test hbiv=144) Yellow Colorless, Straw RBC FLUID (BEAKER) (test xdlq=374) 100 /cu mm <=1 ADJUSTED WBC FLUID (BEAKER) (test ttrt=8706) 10 /cu mm <=5 LINING CELLS (BEAKER) (test ncok=0723) 0 /cu mm <=1 NEUTROPHILS FLUID (BEAKER) (test niai=8543) 8 % LYMPHS FLUID (BEAKER) (test qprl=617) 18 % MONO/MACROPHAGE FLUID (BEAKER) (test antx=849) 74 % EOSINOPHILS FLUID (BEAKER) (test htwx=029) 0 % BASO FLUID (BEAKER) (test vrom=707) 0 % CONTAINER BODY FLUID (BEAKER) (test iibp=9364) EDTA Tube U/S, [id number] 17:11:00LIMIT PARACENTESIS to 5 LITERSAdminister 200 mL of albumin 25% (50 grams) IV x1 after paracentesis if 3 or more liters removed.Send ascitic fluid for cell count and differential.Reason for Exam:-> AscitesFINAL REPORT Ultrasound guided paracentesis. Clinical History: Ascites. Sedation: None. Taxi Driver: Anabel Thornton PA-C [employer] Former Automatic: None. Estimated Blood Loss: < 1 cc. Specimen: 5000 cc of clear yellow fluid, samples sent to laboratory. Technique: Informed consent was obtained. The risks of pain, bleeding, infection, bowel perforation, injury to adjacent structures, and adverse medication reactions were discussed with the patient. After informed consent was obtained, the p atient's abdomen was scanned. The RLQ of the abdomen was selected for paracente sis. After the largest fluid pocket area was marked, and the anterior abdominal wall was evaluated with color Doppler to exclude presence of blood vessels gurmeet ersing the area, the skin was prepped and draped in the usual sterile manner. A fter local anesthesia was achieved with 2% lidocaine, a 5 Maldivian one-step cathet er was advanced into the peritoneal cavity under ultrasound guidance. After comp letion of drainage, the catheter was removed. There was no evidence of complicat ion. Impression:Successful ultrasound guided paracentesis. Signed: Hemanth Guajardo en MDReport Verified Date/Time: 03/10/2019 17:11:28 Reading Location: [address] Ultrasound Reading Room FLUID CULTURE + GRAM [id number] 13:28:00* Test Item Value Reference Range Comments CULTURE (BEAKER) (test zfcb=5592) No growth GRAM STAIN RESULT (BEAKER) (test ozcj=7735) <1+ WBCs GRAM STAIN RESULT (BEAKER) (test qtvf=60810) No organisms seen POCT-GLUCOSE [id number] 11:34:00* Test Item Value Reference Range Comments POC-GLUCOSE METER (BEAKER) (test pmlm=3418) 103 mg/dL 70-110 TESTED AT [facility] [address] [facility] [address] POCT-GLUCOSE [id number] 08:15:00* Test Item Value Reference Range Comments POC-GLUCOSE METER (BEAKER) (test clok=0023) 103 mg/dL 70-110 TESTED AT [place] [id number] [facility] [address] BASIC METABOLIC [id number] 06:23:00* Test Item Value Reference Range Comments SODIUM (BEAKER) (test rtxl=288) 125 meq/L 136-145 POTASSIUM (BEAKER) (test jopx=375) 4.0 meq/L 3.5-5.1 CHLORIDE (BEAKER) (test thsn=234) 97 meq/L 98-107 CO2 (BEAKER) (test xelg=718) 18 meq/L 22-29 BLOOD UREA NITROGEN (BEAKER) (test xpyt=598) 75 mg/dL 7-21 CREATININE (BEAKER) (test ytld=426) 3.47 mg/dL 0.57-1.25 GLUCOSE RANDOM (BEAKER) (test msdj=752) 96 mg/dL 70-105 CALCIUM (BEAKER) (test orcy=097) 7.5 mg/dL 8.4-10.2 EGFR (BEAKER) (test vjqq=7840) 19 mL/min/1.73 sq m ESTIMATED GFR IS NOT ACCURATE CREATININE CLEARANCE IN PREDICTING GLOMERULAR FILTRATION RATE. ESTIMATED GFR IS NOT APPLICABLE FOR DIALYSIS PATIENTS. HEPATIC FUNCTION [id number] 06:22:00* Test Item Value Reference Range Comments TOTAL PROTEIN (BEAKER) (test moji=235) 5.3 gm/dL 6.0-8.3 ALBUMIN (BEAKER) (test ebmo=9416) 2.8 g/dL 3.5-5.0 BILIRUBIN TOTAL (BEAKER) (test czvw=251) 1.4 mg/dL 0.2-1.2 BILIRUBIN DIRECT (BEAKER) (test weiw=499) 0.9 mg/dL 0.1-0.5 ALKALINE PHOSPHATASE (BEAKER) (test dnjr=782) 83 U/L 40-150 AST (SGOT) (BEAKER) (test hjmg=937) 17 U/L 5-34 ALT (SGPT) (BEAKER) (test wzhn=798) 13 U/L 6-55 CBC W/PLT COUNT & AUTO [id number] 05:41:00* Test Item Value Reference Range Comments WHITE BLOOD CELL COUNT (BEAKER) (test lefh=418) 5.3 K/ L 3.5-10.5 RED BLOOD CELL COUNT (BEAKER) (test bgqg=337) 2.78 M/ L 4.63-6.08 HEMOGLOBIN (BEAKER) (test fbqa=179) 8.3 GM/DL 13.7-17.5 HEMATOCRIT (BEAKER) (test gsdq=224) 24.0 % 40.1-51.0 MEAN CORPUSCULAR VOLUME (BEAKER) (test yjav=557) 86.3 fL 79.0-92.2 MEAN CORPUSCULAR HEMOGLOBIN (BEAKER) (test hbgp=392) 29.9 pg 25.7-32.2 MEAN CORPUSCULAR HEMOGLOBIN CONC (BEAKER) (test ukws=760) 34.6 GM/DL 32.3-36.5 RED CELL DISTRIBUTION WIDTH (BEAKER) (test xsoz=372) 15.6 % 11.6-14.4 PLATELET COUNT (BEAKER) (test ujmw=876) 55 K/CU MM 150-450 MEAN PLATELET VOLUME (BEAKER) (test udxe=101) 10.6 fL 9.4-12.4 NUCLEATED RED BLOOD CELLS (BEAKER) (test zshi=244) 0 /100 WBC 0-0 NEUTROPHILS RELATIVE PERCENT (BEAKER) (test dzwp=154) 83 % LYMPHOCYTES RELATIVE PERCENT (BEAKER) (test nefr=699) 6 % MONOCYTES RELATIVE PERCENT (BEAKER) (test hbqh=772) 6 % EOSINOPHILS RELATIVE PERCENT (BEAKER) (test patm=709) 3 % BASOPHILS RELATIVE PERCENT (BEAKER) (test dfpw=805) 1 % NEUTROPHILS ABSOLUTE COUNT (BEAKER) (test obxr=778) 4.40 K/ L 1.78-5.38 LYMPHOCYTES ABSOLUTE COUNT (BEAKER) (test qohq=289) 0.33 K/ L 1.32-3.57 MONOCYTES ABSOLUTE COUNT (BEAKER) (test jkui=349) 0.34 K/ L 0.30-0.82 EOSINOPHILS ABSOLUTE COUNT (BEAKER) (test cxra=717) 0.14 K/ L 0.04-0.54 BASOPHILS ABSOLUTE COUNT (BEAKER) (test wkei=425) 0.03 K/ L 0.01-0.08 IMMATURE GRANULOCYTES-RELATIVE PERCENT (BEAKER) (test zfqh=7304) 1 % 0-1 PROTHROMBIN [id number] 05:40:00* Test Item Value Reference Range Comments PROTIME (BEAKER) (test lomu=018) 15.8 seconds 11.9-14.2 INR (BEAKER) (test vqgv=739) 1.3 <=5.9 Effective 11/20/2018: PT Reference Range ChangeNew: 11.9-14.2 Previous: 11.7-14. 7RECOMMENDED COUMADIN/WARFARIN INR THERAPY RANGESSTANDARD DOSE: 2.0-3.0 Include s: PROPHYLAXIS for venous thrombosis, systemic embolization; TREATMENT for venou s thrombosis and/or pulmonary embolus.HIGH RISK: Target INR is 2.5-3.5 for patie nts wiht mechanical heart valves.POCT-GLUCOSE [id number] 23:00:00* Test Item Value Reference Range Comments POC-GLUCOSE METER (BEAKER) (test ztbm=8330) 155 mg/dL 70-110 [address]ED AT [address] [address] POCT-GLUCOSE [id number] 17:15:00* Test Item Value Reference Range Comments POC-GLUCOSE METER (BEAKER) (test ksqu=5218) 116 mg/dL 70-110 TESTED AT [address] [address] POCT-GLUCOSE [id number] 12:29:00* Test Item Value Reference Range Comments POC-GLUCOSE METER (BEAKER) (test enuu=7113) 129 mg/dL 70-110 TESTED AT [address] [address] POCT-GLUCOSE [id number] 08:27:00* Test Item Value Reference Range Comments POC-GLUCOSE METER (BEAKER) (test ernd=0908) 94 mg/dL 70-110 TESTED AT [address] [address] BASIC METABOLIC [id number] 06:11:00* Test Item Value Reference Range Comments SODIUM (BEAKER) (test bzzi=563) 127 meq/L 136-145 POTASSIUM (BEAKER) (test vive=004) 3.4 meq/L 3.5-5.1 CHLORIDE (BEAKER) (test vkmm=073) 99 meq/L 98-107 CO2 (BEAKER) (test qalb=440) 18 meq/L 22-29 BLOOD UREA NITROGEN (BEAKER) (test kpwe=454) 82 mg/dL 7-21 CREATININE (BEAKER) (test ddqw=625) 3.63 mg/dL 0.57-1.25 GLUCOSE RANDOM (BEAKER) (test wlyj=109) 82 mg/dL 70-105 CALCIUM (BEAKER) (test unjm=115) 7.2 mg/dL 8.4-10.2 EGFR (BEAKER) (test vsnz=4297) 18 mL/min/1.73 sq m ESTIMATED GFR IS NOT ACCURATE CREATININE CLEARANCE IN PREDICTING GLOMERULAR FILTRATION RATE. ESTIMATED GFR IS NOT APPLICABLE FOR DIALYSIS PATIENTS. VITAMIN B12 AND [id number] 06:09:00* Test Item Value Reference Range Comments VITAMIN B12 (BEAKER) (test cptw=814) 373 pg/mL 213-816 FOLATE (BEAKER) (test telt=318) 10.9 ng/mL >=7.0 HEPATIC FUNCTION [id number] 05:33:00* Test Item Value Reference Range Comments TOTAL PROTEIN (BEAKER) (test ulbu=822) 4.8 gm/dL 6.0-8.3 ALBUMIN (BEAKER) (test ahgv=1331) 2.7 g/dL 3.5-5.0 BILIRUBIN TOTAL (BEAKER) (test vggg=513) 1.6 mg/dL 0.2-1.2 BILIRUBIN DIRECT (BEAKER) (test ekug=908) 0.9 mg/dL 0.1-0.5 ALKALINE PHOSPHATASE (BEAKER) (test wwct=100) 70 U/L 40-150 AST (SGOT) (BEAKER) (test dtvp=570) 17 U/L 5-34 ALT (SGPT) (BEAKER) (test ikxd=826) 13 U/L 6-55 CBC W/PLT COUNT & AUTO [id number] 04:47:00* Test Item Value Reference Range Comments WHITE BLOOD CELL COUNT (BEAKER) (test hizz=112) 3.9 K/ L 3.5-10.5 RED BLOOD CELL COUNT (BEAKER) (test nahv=832) 2.51 M/ L 4.63-6.08 HEMOGLOBIN (BEAKER) (test mkvq=638) 7.5 GM/DL 13.7-17.5 HEMATOCRIT (BEAKER) (test mkcs=732) 22.2 % 40.1-51.0 MEAN CORPUSCULAR VOLUME (BEAKER) (test mmqu=970) 88.4 fL 79.0-92.2 MEAN CORPUSCULAR HEMOGLOBIN (BEAKER) (test tkfr=571) 29.9 pg 25.7-32.2 MEAN CORPUSCULAR HEMOGLOBIN CONC (BEAKER) (test igrx=837) 33.8 GM/DL 32.3-36.5 RED CELL DISTRIBUTION WIDTH (BEAKER) (test oqow=918) 16.2 % 11.6-14.4 PLATELET COUNT (BEAKER) (test zawc=049) 47 K/CU MM 150-450 MEAN PLATELET VOLUME (BEAKER) (test ywbf=838) 10.7 fL 9.4-12.4 NUCLEATED RED BLOOD CELLS (BEAKER) (test pogm=273) 0 /100 WBC 0-0 NEUTROPHILS RELATIVE PERCENT (BEAKER) (test nefn=544) 81 % LYMPHOCYTES RELATIVE PERCENT (BEAKER) (test edvn=724) 7 % MONOCYTES RELATIVE PERCENT (BEAKER) (test cdhr=309) 6 % EOSINOPHILS RELATIVE PERCENT (BEAKER) (test srru=837) 4 % BASOPHILS RELATIVE PERCENT (BEAKER) (test cadn=823) 1 % NEUTROPHILS ABSOLUTE COUNT (BEAKER) (test cqge=780) 3.19 K/ L 1.78-5.38 LYMPHOCYTES ABSOLUTE COUNT (BEAKER) (test ygqa=514) 0.29 K/ L 1.32-3.57 MONOCYTES ABSOLUTE COUNT (BEAKER) (test lknb=795) 0.24 K/ L 0.30-0.82 EOSINOPHILS ABSOLUTE COUNT (BEAKER) (test ucbj=046) 0.16 K/ L 0.04-0.54 BASOPHILS ABSOLUTE COUNT (BEAKER) (test mczt=938) 0.03 K/ L 0.01-0.08 IMMATURE GRANULOCYTES-RELATIVE PERCENT (BEAKER) (test hhse=5357) 1 % 0-1 PROTHROMBIN [id number] 04:43:00* Test Item Value Reference Range Comments PROTIME (BEAKER) (test xtqu=000) 16.9 seconds 11.9-14.2 INR (BEAKER) (test nqre=287) 1.5 <=5.9 Effective 11/20/2018: PT Reference Range ChangeNew: 11.9-14.2 Previous: 11.7-14. 7RECOMMENDED COUMADIN/WARFARIN INR THERAPY RANGESSTANDARD DOSE: 2.0-3.0 Include s: PROPHYLAXIS for venous thrombosis, systemic embolization; TREATMENT for venou s thrombosis and/or pulmonary embolus.HIGH RISK: Target INR is 2.5-3.5 for patie nts wiht mechanical heart valves.POCT-GLUCOSE [id number] 23:03:00* Test Item Value Reference Range Comments POC-GLUCOSE METER (BEAKER) (test gsqj=8449) 91 mg/dL 70-110 TESTED AT [place] [id number] [facility] [address] [id number] 17:27:00* Test Item Value Reference Range Comments FERRITIN (BEAKER) (test gzcu=958) 260 ng/mL 5-275 IRON, TIBC, % SAT. (WITHOUT FERRITIN)2019-03-08 17:07:00* Test Item Value Reference Range Comments IRON (BEAKER) (test xhip=417) 72.0 ug/dL 40.0-160.0 TOTAL IRON BINDING CAPACITY (BEAKER) (test sulq=131) 129 ug/dL 250-450 IRON % SATURATION (2) (BEAKER) (test egdu=6116) 56 % 20-55 HEMOGLOBIN AND [id number] 16:51:00* Test Item Value Reference Range Comments HEMOGLOBIN (BEAKER) (test lcay=640) 6.6 GM/DL 13.7-17.5 HEMATOCRIT (BEAKER) (test citm=284) 19.4 % 40.1-51.0 POCT-GLUCOSE [id number] 16:42:00* Test Item Value Reference Range Comments POC-GLUCOSE METER (BEAKER) (test lthx=5206) 87 mg/dL 70-110 TESTED AT [facility] [address] [facility] [address] POCT-GLUCOSE [id number] 11:20:00* Test Item Value Reference Range Comments POC-GLUCOSE METER (BEAKER) (test tcbk=6714) 116 mg/dL 70-110 TESTED AT [facility] [address] [place] [address] HEMOGLOBIN [id number] 09:31:00* Test Item Value Reference Range Comments HEMOGLOBIN A1C (BEAKER) (test rfpd=087) 4.5 % 4.3-6.1 PTH, [id number] 06:46:00* Test Item Value Reference Range Comments PARATHYROID HORMONE INTACT (BEAKER) (test dacj=953) 219.1 pg/mL 8.5-72.5 COMPREHENSIVE METABOLIC [id number] 06:35:00* Test Item Value Reference Range Comments TOTAL PROTEIN (BEAKER) (test gzlj=208) 4.9 gm/dL 6.0-8.3 ALBUMIN (BEAKER) (test qjth=9309) 2.8 g/dL 3.5-5.0 ALKALINE PHOSPHATASE (BEAKER) (test uwgu=560) 71 U/L 40-150 BILIRUBIN TOTAL (BEAKER) (test wblx=431) 1.3 mg/dL 0.2-1.2 SODIUM (BEAKER) (test nhtf=872) 133 meq/L 136-145 POTASSIUM (BEAKER) (test axhu=422) 3.0 meq/L 3.5-5.1 CHLORIDE (BEAKER) (test byog=317) 103 meq/L 98-107 CO2 (BEAKER) (test maqf=065) 19 meq/L 22-29 BLOOD UREA NITROGEN (BEAKER) (test rwss=342) 92 mg/dL 7-21 CREATININE (BEAKER) (test ksns=809) 3.99 mg/dL 0.57-1.25 GLUCOSE RANDOM (BEAKER) (test pjob=216) 80 mg/dL 70-105 CALCIUM (BEAKER) (test rhqy=464) 7.3 mg/dL 8.4-10.2 AST (SGOT) (BEAKER) (test zrzb=201) 18 U/L 5-34 ALT (SGPT) (BEAKER) (test ghbw=899) 13 U/L 6-55 EGFR (BEAKER) (test ljqn=5902) 16 mL/min/1.73 sq m ESTIMATED GFR IS NOT ACCURATE CREATININE CLEARANCE IN PREDICTING GLOMERULAR FILTRATION RATE. ESTIMATED GFR IS NOT APPLICABLE FOR DIALYSIS PATIENTS. URIC [id number] 06:34:00* Test Item Value Reference Range Comments URIC ACID (BEAKER) (test zaxm=631) 13.5 mg/dL 2.6-7.2 [id number] 06:34:00* Test Item Value Reference Range Comments MAGNESIUM (BEAKER) (test cqbc=024) 2.0 mg/dL 1.6-2.6 [id number] 06:34:00* Test Item Value Reference Range Comments PHOSPHORUS (BEAKER) (test fjpo=363) 7.0 mg/dL 2.3-4.7 CBC W/PLT COUNT & AUTO [id number] 06:21:00* Test Item Value Reference Range Comments WHITE BLOOD CELL COUNT (BEAKER) (test zcmw=975) 3.5 K/ L 3.5-10.5 RED BLOOD CELL COUNT (BEAKER) (test rnat=332) 1.93 M/ L 4.63-6.08 HEMOGLOBIN (BEAKER) (test fngh=314) 6.0 GM/DL 13.7-17.5 HEMATOCRIT (BEAKER) (test peue=969) 17.4 % 40.1-51.0 MEAN CORPUSCULAR VOLUME (BEAKER) (test xugc=151) 90.2 fL 79.0-92.2 MEAN CORPUSCULAR HEMOGLOBIN (BEAKER) (test mklt=505) 31.1 pg 25.7-32.2 MEAN CORPUSCULAR HEMOGLOBIN CONC (BEAKER) (test fqmy=938) 34.5 GM/DL 32.3-36.5 RED CELL DISTRIBUTION WIDTH (BEAKER) (test wrlb=687) 15.7 % 11.6-14.4 PLATELET COUNT (BEAKER) (test szlr=471) 46 K/CU MM 150-450 MEAN PLATELET VOLUME (BEAKER) (test ztzr=270) 11.1 fL 9.4-12.4 NUCLEATED RED BLOOD CELLS (BEAKER) (test pkhm=586) 0 /100 WBC 0-0 NEUTROPHILS RELATIVE PERCENT (BEAKER) (test jqxb=699) 85 % LYMPHOCYTES RELATIVE PERCENT (BEAKER) (test kqhd=353) 7 % MONOCYTES RELATIVE PERCENT (BEAKER) (test lvue=361) 5 % EOSINOPHILS RELATIVE PERCENT (BEAKER) (test rktp=345) 2 % BASOPHILS RELATIVE PERCENT (BEAKER) (test xtff=662) 0 % NEUTROPHILS ABSOLUTE COUNT (BEAKER) (test ucpv=225) 2.95 K/ L 1.78-5.38 LYMPHOCYTES ABSOLUTE COUNT (BEAKER) (test tltl=468) 0.23 K/ L 1.32-3.57 MONOCYTES ABSOLUTE COUNT (BEAKER) (test cawi=686) 0.17 K/ L 0.30-0.82 EOSINOPHILS ABSOLUTE COUNT (BEAKER) (test uksv=409) 0.08 K/ L 0.04-0.54 BASOPHILS ABSOLUTE COUNT (BEAKER) (test spkj=607) 0.01 K/ L 0.01-0.08 IMMATURE GRANULOCYTES-RELATIVE PERCENT (BEAKER) (test ojqp=0994) 1 % 0-1 B-TYPE NATRIURETIC FACTOR (BNP)2019-03-08 06:18:00* Test Item Value Reference Range Comments B-TYPE NATRIURETIC PEPTIDE (BEAKER) (test gaws=506) 274 pg/mL 0-100 CALCIUM, [id number] 06:08:00* Test Item Value Reference Range Comments CALCIUM IONIZED (BEAKER) (test vudz=733) 0.96 mmol/L 1.12-1.27 PH, BLOOD (BEAKER) (test lwjd=7194) 7.45 PROTHROMBIN [id number] 05:58:00* Test Item Value Reference Range Comments PROTIME (BEAKER) (test mjmo=613) 16.5 seconds 11.9-14.2 INR (BEAKER) (test islu=555) 1.4 <=5.9 Effective 11/20/2018: PT Reference Range ChangeNew: 11.9-14.2 Previous: 11.7-14. 7RECOMMENDED COUMADIN/WARFARIN INR THERAPY RANGESSTANDARD DOSE: 2.0-3.0 Include s: PROPHYLAXIS for venous thrombosis, systemic embolization; TREATMENT for venou s thrombosis and/or pulmonary embolus.HIGH RISK: Target INR is 2.5-3.5 for patie nts wiht mechanical heart valves.U/S, RENAL, [id number] 22:43:00Reason for exam:->AKIShould this be performed at the bedside?->YesFINAL REPORT TECHNIQUE: Grayscale ultrasound of the kidneys and bladder. INDICATION: 53-year-old man with acute kidney injury. COMPARISON: Renal ultrasound 11/17/2018. FINDINGS: RIGHT KIDNEY: The right kidney measures 10.6 x 6.3 x 6.6 cm. Cortical thickness measures 1.7 cm. No solid mass lesions. No hydronephrosis. Renal artery and vein are patent. LEFT KIDNEY: The left kidney measures 10.4 x 4.4 x 5.4 cm. Cortical thickness measures 1.6 cm. No solid mass lesions. No hydronephrosis. Renal artery and vein are patent. BLADDER: Unrema rkable. OTHER FINDINGS: Moderate volume ascites. IMPRESSION:Kidneys are unremar kable. Signed: Chrissy Downs MDReport Verified Date/Time: 03/07/2019 22:43:22 Reading Location: [facility] C013 Consult Reading Room U/S, TESTICULAR (SCROTUM) 2019-03-07 22:24:00Reason for exam:->Enlarged scrotumShould this be performed at the bedside?->YesFINAL REPORT TECHNIQUE: Grayscale, color Doppler, and spectral Doppler ultrasound of the scrotum and testicles. INDICATION: 53-year-old man with enlarged scrotum. COMPARISON: Pelvis CT 12/27/2018. FINDINGS: RIGHT TESTIS: The suspected right testis is partially visualized on cine clip A:4. It appears grossly normal. LEFT TESTIS: Measures 4.1 x 2.1 x 3.1 cm. Normal echotexture without focal lesions. VASCULAR: Vascular flow detected in the left testis. Doppler evaluation of the right testis was not performed. EPIDIDYMIDES: Neither epididymis is clearly visualized. SCROTUM: Large bilateral inguinal hernias contain ascitic fluid and extend into the scrotum. Large bilateral hydroceles. IMPRESSION:Large bilateral inguinal hernias containing ascitic fluid extend into the scrotum. Large bilateral hydroceles. Signed: Chrissy Downs MDReport Verified Date/Time: 03/07/2019 22:24:35 Reading Location: [facility] B1 C013W Consult Reading Room -GLUCOSE METER 2019-03-07 21:31:00* Test Item Value Reference Range Comments POC-GLUCOSE METER (BEAKER) (test vffr=8348) 113 mg/dL 70-110 TESTED AT [facility] [address] [address] POCT-GLUCOSE [id number] 16:35:00* Test Item Value Reference Range Comments POC-GLUCOSE METER (BEAKER) (test atoy=7248) 104 mg/dL 70-110 TESTED AT [address] [address] U/S, [id number] 16:29:00Reason for exam:->eval for SBP, volume overload, max amount to remove is 8L per Dr. Valle REPORT Ultrasound guided paracentesis Clinical History: Ascites. Sedation: None. Taxi Driver: Sharon Troy PA-C Supervising Physician: Timbo Reilly MD Turner [employer] Former Automatic: None. Estimated Blood Loss: < 1 mL. Specimen: 8000 mL of clear yellow fluid, samples sent to laboratory. Technique: Informed consent was obtained. The risks of pain, bleeding, infection, bowel perforation, injury to adjacent structures, and adverse medication reactions were discussed with the patient. After informed consent was obtained, the p atient's abdomen was scanned. The right lower quadrant of the abdomen was selec cristian for paracentesis. After the largest fluid pocket area was marked, and the a nterior abdominal wall was evaluated with color Doppler to exclude presence of b lood vessels traversing the area, the skin was prepped and draped in the usual s terile manner. After local anesthesia was achieved with lidocaine, a 5 Maldivian o ne-step catheter was advanced into the peritoneal cavity under ultrasound guidan ce. After completion of drainage, the catheter was removed. There was no evidenc e of complication. Impression:Successful ultrasound guided paracentesis. Signed: Timbo Reilly MDReport Verified Date/Time: 03/07/2019 16:29:02 Reading Locati on: [facility] B1 P006J Ultrasound Reading Room FLUID CELL COUNT WITH DIFFERENTIAL 2019-03-07 16:19:00* Test Item Value Reference Range Comments APPEARANCE FLUID (BEAKER) (test mdxo=340) Clear Clear COLOR FLUID (BEAKER) (test qzyc=276) Yellow Colorless, Straw RBC FLUID (BEAKER) (test qfbd=140) 15 /cu mm <=1 ADJUSTED WBC FLUID (BEAKER) (test yvoc=8468) 20 /cu mm <=5 LINING CELLS (BEAKER) (test dqtp=0417) 0 /cu mm <=1 NEUTROPHILS FLUID (BEAKER) (test vset=1944) 4 % LYMPHS FLUID (BEAKER) (test xbvn=516) 43 % MONO/MACROPHAGE FLUID (BEAKER) (test rjzw=427) 53 % EOSINOPHILS FLUID (BEAKER) (test tlxb=889) 0 % BASO FLUID (BEAKER) (test cmqo=324) 0 % CONTAINER BODY FLUID (BEAKER) (test vhnb=6666) EDTA Tube SODIUM, RANDOM [id number] 14:13:00* Test Item Value Reference Range Comments SODIUM URINE (BEAKER) (test hjsn=263) < meq/L Reference Range: No NormalsCREATININE, RANDOM [id number] 14:04:00* Test Item Value Reference Range Comments CREATININE URINE (BEAKER) (test kdgc=920) 97.2 mg/dL Reference Range: No NormalsPROTEIN, RANDOM [id number] 14:04:00* Test Item Value Reference Range Comments PROTEIN, URINE (BEAKER) (test mths=1225) 13 mg/dL 0-14 POCT-GLUCOSE [id number] 12:27:00* Test Item Value Reference Range Comments POC-GLUCOSE METER (BEAKER) (test zwkc=3879) 134 mg/dL 70-110 TESTED AT [facility] [address] [address] RAD, CHEST, 1 VIEW, NON [id number] 10:09:00Reason for exam:->Fluid overloadShould this be performed at the bedside?->YesFINAL REPORT RAD, CHEST, 1 VIEW, NON DEPT INDICATION: Fluid overload COMPARISON: July 25, 2018 FINDINGS: Portable frontal view of the chest. IMPRESSION: Support Lines: None Lungs and pleura: Small right effusion. Bibasilar subsegmental atelectasis is noted. No pneumothorax.Heart and mediastinum: Normal cardiac size. Normal aortic caliber.Additional findings: None. Signed: JR Maximino, Kitty MDReport Verified Date/Time: 03/07/2019 10:09:01 Teodoro wilson Location: [facility] Radiology Reading Room -GLUCOSE [id number] 08:11:00* Test Item Value Reference Range Comments POC-GLUCOSE METER (BEAKER) (test edbg=6002) 89 mg/dL 70-110 TESTED AT [facility] [address] [address] URINALYSIS W/ [id number] 08:09:00* Test Item Value Reference Range Comments COLOR (BEAKER) (test fnky=335) Yellow CLARITY (BEAKER) (test xeun=349) Clear SPECIFIC GRAVITY UA (BEAKER) (test yted=457) 1.011 1.001-1.035 PH UA (BEAKER) (test wxzs=934) 5.0 5.0-8.0 PROTEIN UA (BEAKER) (test godf=111) Negative Negative GLUCOSE UA (BEAKER) (test jlsq=475) Negative Negative KETONES UA (BEAKER) (test gqni=941) Negative Negative BILIRUBIN UA (BEAKER) (test mznr=930) Negative Negative BLOOD UA (BEAKER) (test zpzj=348) Negative Negative NITRITE UA (BEAKER) (test amia=658) Negative Negative LEUKOCYTE ESTERASE UA (BEAKER) (test kbch=570) Negative Negative UROBILINOGEN UA (BEAKER) (test tdsd=833) 0.2 mg/dL 0.2-1.0 RBC UA (BEAKER) (test hvsp=786) 1 /HPF WBC UA (BEAKER) (test acxb=098) 2 /HPF BACTERIA (BEAKER) (test dbqr=812) Rare MUCUS (BEAKER) (test mypq=6237) Rare SQUAMOUS EPITHELIAL (BEAKER) (test hvvz=246) 1 /HPF HYALINE CASTS (BEAKER) (test swfc=871) 15 /LPF AMORPHOUS CRYSTALS (BEAKER) (test ewxa=2971) Rare SOURCE(BEAKER) (test jswf=3075) BASIC METABOLIC [id number] 07:56:00* Test Item Value Reference Range Comments SODIUM (BEAKER) (test nakf=753) 135 meq/L 136-145 POTASSIUM (BEAKER) (test vkxa=933) 3.1 meq/L 3.5-5.1 CHLORIDE (BEAKER) (test zqnb=285) 103 meq/L 98-107 CO2 (BEAKER) (test ommh=738) 19 meq/L 22-29 BLOOD UREA NITROGEN (BEAKER) (test jity=522) 96 mg/dL 7-21 CREATININE (BEAKER) (test tnsn=495) 4.11 mg/dL 0.57-1.25 GLUCOSE RANDOM (BEAKER) (test uqjw=541) 80 mg/dL 70-105 CALCIUM (BEAKER) (test fmwc=942) 7.7 mg/dL 8.4-10.2 EGFR (BEAKER) (test lmrg=1762) 15 mL/min/1.73 sq m ESTIMATED GFR IS NOT ACCURATE CREATININE CLEARANCE IN PREDICTING GLOMERULAR FILTRATION RATE. ESTIMATED GFR IS NOT APPLICABLE FOR DIALYSIS PATIENTS. PROTHROMBIN [id number] 07:55:00* Test Item Value Reference Range Comments PROTIME (BEAKER) (test chff=887) 16.0 seconds 11.9-14.2 INR (BEAKER) (test aaac=533) 1.4 <=5.9 Effective 11/20/2018: PT Reference Range ChangeNew: 11.9-14.2 Previous: 11.7-14. 7RECOMMENDED COUMADIN/WARFARIN INR THERAPY RANGESSTANDARD DOSE: 2.0-3.0 Include s: PROPHYLAXIS for venous thrombosis, systemic embolization; TREATMENT for venou s thrombosis and/or pulmonary embolus.HIGH RISK: Target INR is 2.5-3.5 for patie nts wiht mechanical heart valves.HEPATIC FUNCTION [id number] 07:54:00* Test Item Value Reference Range Comments TOTAL PROTEIN (BEAKER) (test mrwh=847) 5.5 gm/dL 6.0-8.3 ALBUMIN (BEAKER) (test ilvs=8259) 2.9 g/dL 3.5-5.0 BILIRUBIN TOTAL (BEAKER) (test ivkd=536) 2.0 mg/dL 0.2-1.2 BILIRUBIN DIRECT (BEAKER) (test pynb=113) 1.2 mg/dL 0.1-0.5 ALKALINE PHOSPHATASE (BEAKER) (test fhbh=460) 99 U/L 40-150 AST (SGOT) (BEAKER) (test fpwj=302) 25 U/L 5-34 ALT (SGPT) (BEAKER) (test dind=311) 19 U/L 6-55 CBC W/PLT COUNT & AUTO [id number] 07:40:00* Test Item Value Reference Range Comments WHITE BLOOD CELL COUNT (BEAKER) (test avsv=660) 4.7 K/ L 3.5-10.5 RED BLOOD CELL COUNT (BEAKER) (test padh=927) 2.24 M/ L 4.63-6.08 HEMOGLOBIN (BEAKER) (test zqsm=621) 6.8 GM/DL 13.7-17.5 HEMATOCRIT (BEAKER) (test bnon=621) 20.3 % 40.1-51.0 MEAN CORPUSCULAR VOLUME (BEAKER) (test vbwl=175) 90.6 fL 79.0-92.2 MEAN CORPUSCULAR HEMOGLOBIN (BEAKER) (test pyjv=551) 30.4 pg 25.7-32.2 MEAN CORPUSCULAR HEMOGLOBIN CONC (BEAKER) (test sqbv=656) 33.5 GM/DL 32.3-36.5 RED CELL DISTRIBUTION WIDTH (BEAKER) (test tcpf=339) 15.6 % 11.6-14.4 PLATELET COUNT (BEAKER) (test ptup=710) 53 K/CU MM 150-450 MEAN PLATELET VOLUME (BEAKER) (test oycq=488) 10.8 fL 9.4-12.4 NUCLEATED RED BLOOD CELLS (BEAKER) (test efcf=465) 0 /100 WBC 0-0 NEUTROPHILS RELATIVE PERCENT (BEAKER) (test wopo=027) 89 % LYMPHOCYTES RELATIVE PERCENT (BEAKER) (test iejh=875) 6 % MONOCYTES RELATIVE PERCENT (BEAKER) (test lmmj=913) 3 % EOSINOPHILS RELATIVE PERCENT (BEAKER) (test eale=146) 1 % BASOPHILS RELATIVE PERCENT (BEAKER) (test kggy=763) 0 % NEUTROPHILS ABSOLUTE COUNT (BEAKER) (test ddqi=653) 4.14 K/ L 1.78-5.38 LYMPHOCYTES ABSOLUTE COUNT (BEAKER) (test gfds=425) 0.27 K/ L 1.32-3.57 MONOCYTES ABSOLUTE COUNT (BEAKER) (test mgys=356) 0.16 K/ L 0.30-0.82 EOSINOPHILS ABSOLUTE COUNT (BEAKER) (test jphr=652) 0.05 K/ L 0.04-0.54 BASOPHILS ABSOLUTE COUNT (BEAKER) (test pekj=455) 0.01 K/ L 0.01-0.08 IMMATURE GRANULOCYTES-RELATIVE PERCENT (BEAKER) (test rurz=5205) 0 % 0-1 [id number] 00:59:00* Test Item Value Reference Range Comments AMMONIA (BEAKER) (test zudz=215) 95 mol/L 18-72 [id number] 19:22:00* Test Item Value Reference Range Comments LIPASE (BEAKER) (test sdvw=826) 5 U/L 8-78 HEPATIC FUNCTION [id number] 19:22:00* Test Item Value Reference Range Comments TOTAL PROTEIN (BEAKER) (test bhsr=881) 5.9 gm/dL 6.0-8.3 ALBUMIN (BEAKER) (test olwu=4137) 3.1 g/dL 3.5-5.0 BILIRUBIN TOTAL (BEAKER) (test hzta=488) 1.3 mg/dL 0.2-1.2 BILIRUBIN DIRECT (BEAKER) (test gypz=036) 0.9 mg/dL 0.1-0.5 ALKALINE PHOSPHATASE (BEAKER) (test uxlh=633) 101 U/L 40-150 AST (SGOT) (BEAKER) (test nbfw=064) 29 U/L 5-34 ALT (SGPT) (BEAKER) (test mtwp=942) 20 U/L 6-55 BASIC METABOLIC [id number] 19:22:00* Test Item Value Reference Range Comments SODIUM (BEAKER) (test kolt=000) 135 meq/L 136-145 POTASSIUM (BEAKER) (test bxpq=004) 3.2 meq/L 3.5-5.1 CHLORIDE (BEAKER) (test ovrc=346) 102 meq/L 98-107 CO2 (BEAKER) (test dsvu=891) 21 meq/L 22-29 BLOOD UREA NITROGEN (BEAKER) (test sjdl=785) 94 mg/dL 7-21 CREATININE (BEAKER) (test furk=922) 4.31 mg/dL 0.57-1.25 GLUCOSE RANDOM (BEAKER) (test qzzk=228) 97 mg/dL 70-105 CALCIUM (BEAKER) (test nukt=684) 8.0 mg/dL 8.4-10.2 EGFR (BEAKER) (test sglm=2267) 15 mL/min/1.73 sq m ESTIMATED GFR IS NOT ACCURATE CREATININE CLEARANCE IN PREDICTING GLOMERULAR FILTRATION RATE. ESTIMATED GFR IS NOT APPLICABLE FOR DIALYSIS PATIENTS. PT/[id number] 19:04:00* Test Item Value Reference Range Comments PROTIME (BEAKER) (test qdzi=335) 15.9 seconds 11.9-14.2 INR (BEAKER) (test ocxs=722) 1.3 <=5.9 PARTIAL THROMBOPLASTIN TIME (BEAKER) (test bjoz=682) 33.8 seconds 22.5-36.0 Effective 11/20/2018: PT Reference Range ChangeNew: 11.9-14.2 Previous: 11.7-14. 7RECOMMENDED COUMADIN/WARFARIN INR THERAPY RANGESSTANDARD DOSE: 2.0-3.0 Include s: PROPHYLAXIS for venous thrombosis, systemic embolization; TREATMENT for venou s thrombosis and/or pulmonary embolus.HIGH RISK: Target INR is 2.5-3.5 for patie nts wiht mechanical heart valves.CBC W/PLT COUNT & AUTO [id number] 19:03:00* Test Item Value Reference Range Comments WHITE BLOOD CELL COUNT (BEAKER) (test qlxg=289) 4.9 K/ L 3.5-10.5 RED BLOOD CELL COUNT (BEAKER) (test ssny=367) 1.77 M/ L 4.63-6.08 HEMOGLOBIN (BEAKER) (test ptyz=197) 5.5 GM/DL 13.7-17.5 HEMATOCRIT (BEAKER) (test bght=076) 16.2 % 40.1-51.0 MEAN CORPUSCULAR VOLUME (BEAKER) (test uslc=824) 91.5 fL 79.0-92.2 MEAN CORPUSCULAR HEMOGLOBIN (BEAKER) (test wnvz=809) 31.1 pg 25.7-32.2 MEAN CORPUSCULAR HEMOGLOBIN CONC (BEAKER) (test nwuk=496) 34.0 GM/DL 32.3-36.5 RED CELL DISTRIBUTION WIDTH (BEAKER) (test ytwk=546) 15.8 % 11.6-14.4 PLATELET COUNT (BEAKER) (test fqmv=972) 56 K/CU MM 150-450 MEAN PLATELET VOLUME (BEAKER) (test hkcn=909) 10.6 fL 9.4-12.4 NUCLEATED RED BLOOD CELLS (BEAKER) (test iujv=852) 0 /100 WBC 0-0 NEUTROPHILS RELATIVE PERCENT (BEAKER) (test khkn=852) 91 % LYMPHOCYTES RELATIVE PERCENT (BEAKER) (test jfrl=184) 5 % MONOCYTES RELATIVE PERCENT (BEAKER) (test uqao=423) 4 % EOSINOPHILS RELATIVE PERCENT (BEAKER) (test fecb=948) 0 % BASOPHILS RELATIVE PERCENT (BEAKER) (test qpzx=208) 0 % NEUTROPHILS ABSOLUTE COUNT (BEAKER) (test igpy=085) 4.43 K/ L 1.78-5.38 LYMPHOCYTES ABSOLUTE COUNT (BEAKER) (test xyeh=038) 0.23 K/ L 1.32-3.57 MONOCYTES ABSOLUTE COUNT (BEAKER) (test nzku=439) 0.17 K/ L 0.30-0.82 EOSINOPHILS ABSOLUTE COUNT (BEAKER) (test smno=047) 0.02 K/ L 0.04-0.54 BASOPHILS ABSOLUTE COUNT (BEAKER) (test hxmp=525) 0.01 K/ L 0.01-0.08 IMMATURE GRANULOCYTES-RELATIVE PERCENT (BEAKER) (test nppu=9602) 1 % 0-1 U/S, [id number] 16:03:00LIMIT PARACENTESIS to 5 LITERSAdminister 200 mL of albumin 25% (50 grams) IV x1 after paracentesis if 3 or more liters removed.Send ascitic fluid for cell count and differential.Reason for Exam:-> AscitesFINAL REPORT Ultrasound guided paracentesis Clinical History: Ascites. Sedation: None. Taxi Driver: Sharon Troy PA-C Supervising Physician: Timothy Kelly MD [employer] Automatic: None. Estimated Blood Loss: < 1 mL. Specimen: 5000 mL of clear yellow fluid, samples sent to laboratory. Technique: Informed consent was obtained. The risks of pain, bleeding, infection, bowel perforation, injury to adjacent structures, and adverse medication reactions were discussed with the patient. After informed consent was obtained, the patient's abdomen was scanned. The right lower quadrant of the abdomen was selected for paracentesis. After the largest fluid pocket area was marked, and the anterior abdominal wall was evaluated with color Doppler to exclude presence of blood vessels traversing the area, the skin was prepped and draped in the usual sterile manner. After local anesthesia was achieved with lidocaine, a 5 Maldivian one-step catheter was advanced into the peritoneal cavity under ultrasound guidance. After completion of drainage, the catheter was removed. There was no evidence of complication. This procedure was performed by LAURENCE Condon under direct supervision of Timothy Kelly M.D. Impression:Successful ultrasound guided paracentesis. Signed: Timothy Kelly MDReport Verified Date/Time: 03/05/2019 16:03:13 Reading Location: [address] Ultrasound Reading Room FLUID CELL COUNT WITH [id number] 12:28:00* Test Item Value Reference Range Comments APPEARANCE FLUID (BEAKER) (test zlob=822) Hazy Clear COLOR FLUID (BEAKER) (test ckid=410) Yellow Colorless, Straw RBC FLUID (BEAKER) (test hoty=443) 50 /cu mm <=1 ADJUSTED WBC FLUID (BEAKER) (test fcww=2063) 56 /cu mm <=5 LINING CELLS (BEAKER) (test laao=7078) 0 /cu mm <=1 NEUTROPHILS FLUID (BEAKER) (test fwzi=0089) 0 % LYMPHS FLUID (BEAKER) (test kxzf=940) 25 % MONO/MACROPHAGE FLUID (BEAKER) (test zjqa=834) 75 % EOSINOPHILS FLUID (BEAKER) (test fyrq=843) 0 % BASO FLUID (BEAKER) (test aknb=523) 0 % CONTAINER BODY FLUID (BEAKER) (test cdpm=9451) Sterile Cup BODY FLUID CELL COUNT WITH [id number] 14:20:00* Test Item Value Reference Range Comments APPEARANCE FLUID (BEAKER) (test neym=143) Slightly Hazy Clear COLOR FLUID (BEAKER) (test eivi=157) Straw Colorless, Straw RBC FLUID (BEAKER) (test fbys=296) 34 /cu mm <=1 ADJUSTED WBC FLUID (BEAKER) (test vruc=3535) 50 /cu mm <=5 LINING CELLS (BEAKER) (test jrgq=1779) 2 /cu mm <=1 NEUTROPHILS FLUID (BEAKER) (test jyjq=3087) 0 % LYMPHS FLUID (BEAKER) (test lsda=296) 17 % MONO/MACROPHAGE FLUID (BEAKER) (test zyba=744) 83 % EOSINOPHILS FLUID (BEAKER) (test rzwq=950) 0 % BASO FLUID (BEAKER) (test ymsn=020) 0 % CONTAINER BODY FLUID (BEAKER) (test mxgv=0897) EDTA Tube U/S, [id number] 13:42:00LIMIT PARACENTESIS to 5 LITERSAdminister 200 mL of albumin 25% (50 grams) IV x1 after paracentesis if 3 or more liters removed.Send ascitic fluid for cell count and differential.Reason for Exam:-> AscitesFINAL REPORT Ultrasound guided paracentesis Clinical History: Ascites. Sedation: None. Taxi Driver: Anabel Thornton PA-C [employer] Former Automatic: None. Estimated Blood Loss: < 1 cc. Specimen: 5000 cc of clear yellow fluid, samples sent to laboratory. Technique: Informed consent was obtained. The risks of pain, bleeding, infection, bowel perforation, injury to adjacent structures, and adverse medication reactions were discussed with the patient. After informed consent was obtained, the p atient's abdomen was scanned. The RLQ of the abdomen was selected for paracente sis. After the largest fluid pocket area was marked, and the anterior abdominal wall was evaluated with color Doppler to exclude presence of blood vessels gurmeet ersing the area, the skin was prepped and draped in the usual sterile manner. A fter local anesthesia was achieved with 2% lidocaine, a 5 Maldivian one-step cathet er was advanced into the peritoneal cavity under ultrasound guidance. After comp letion of drainage, the catheter was removed. There was no evidence of complicat ion. This procedure was performed by LAURENCE Colin under direct supervision of Timothy Kelly M.D. Impression:Successful ultrasound guided paracentesis. Si gned: Timothy Kelly MDReport Verified Date/Time: 02/28/2019 13:42:09 Reading Location: [facility] P006J Ultrasound Reading Room FLUID CELL COUNT WITH [id number] 11:11:00* Test Item Value Reference Range Comments APPEARANCE FLUID (BEAKER) (test doly=269) Clear Clear COLOR FLUID (BEAKER) (test utaz=710) Yellow Colorless, Straw RBC FLUID (BEAKER) (test hfdq=560) 575 /cu mm <=1 ADJUSTED WBC FLUID (BEAKER) (test wziv=6686) 50 /cu mm <=5 LINING CELLS (BEAKER) (test ssgs=8326) 0 /cu mm <=1 NEUTROPHILS FLUID (BEAKER) (test uepa=0750) 9 % LYMPHS FLUID (BEAKER) (test ffiz=916) 17 % MONO/MACROPHAGE FLUID (BEAKER) (test ltkh=724) 74 % EOSINOPHILS FLUID (BEAKER) (test nqwq=045) 0 % BASO FLUID (BEAKER) (test dhzf=411) 0 % CONTAINER BODY FLUID (BEAKER) (test kvfl=6359) Sterile Cup U/S, [id number] 18:34:00LIMIT PARACENTESIS to 5 LITERSAdminister 200 mL of albumin 25% (50 grams) IV x1 after paracentesis if 3 or more liters removed.Send ascitic fluid for cell count and differential.Reason for Exam:-> AscitesFINAL REPORT Ultrasound guided paracentesis. Clinical History: Ascites. Sedation: None. Operators: This procedure was performed by LAURENCE Colin under direct supervision of Dionicio Song M.D. Turner And Former Automatic: None. Estimated Blood Loss: < 1 cc. Specimen: 5000 cc of clear yellow fluid, samples sent to laboratory. Technique: Informed consent was obtained. The risks of pain, bleeding, infection, bowel perforation, injury to adjacent structures, and adverse medication reactions were discussed with the patient. After informed consent was obtained, the p atient's abdomen was scanned. The RLQ of the abdomen was selected for paracente sis. After the largest fluid pocket area was marked, and the anterior abdominal wall was evaluated with color Doppler to exclude presence of blood vessels gurmeet ersing the area, the skin was prepped and draped in the usual sterile manner. A fter local anesthesia was achieved with 2% lidocaine, a 5 [place] one-step cathet er was advanced into the peritoneal cavity under ultrasound guidance. After comp letion of drainage, the catheter was removed. There was no evidence of complicat ion. Impression:Successful ultrasound guided paracentesis. Signed: Dionicio Song MDReport Verified Date/Time: 02/17/2019 18:34:41 Reading Location: [address] Ultrasound Reading Room FLUID CELL COUNT WITH [id number] 14:53:00* Test Item Value Reference Range Comments APPEARANCE FLUID (BEAKER) (test jfre=372) Slightly Hazy Clear COLOR FLUID (BEAKER) (test awfd=731) Straw Colorless, Straw RBC FLUID (BEAKER) (test fpfr=516) 52 /cu mm <=1 ADJUSTED WBC FLUID (BEAKER) (test fadg=1206) 58 /cu mm <=5 LINING CELLS (BEAKER) (test wwkz=3705) 1 /cu mm <=1 NEUTROPHILS FLUID (BEAKER) (test ibjv=9237) 3 % LYMPHS FLUID (BEAKER) (test casq=522) 11 % MONO/MACROPHAGE FLUID (BEAKER) (test ifkv=497) 86 % EOSINOPHILS FLUID (BEAKER) (test fqiy=579) 0 % BASO FLUID (BEAKER) (test puuy=195) 0 % CONTAINER BODY FLUID (BEAKER) (test sghh=3275) EDTA Tube U/S, [id number] 16:51:00LIMIT PARACENTESIS to 5 LITERSAdminister 200 mL of albumin 25% (50 grams) IV x1 after paracentesis if 3 or more liters removed.Send ascitic fluid for cell count and differential.Reason for Exam:-> AscitesFINAL REPORT Ultrasound guided paracentesis. Clinical History: Ascites. Sedation: None. Taxi Driver: Anabel Thornton PA-C Turner And Former Automatic: None. Estimated Blood Loss: < 1 cc. Specimen: 5000 cc of clear yellow fluid, samples sent to laboratory. Technique: Informed consent was obtained. The risks of pain, bleeding, infection, bowel perforation, injury to adjacent structures, and adverse medication reactions were discussed with the patient. After informed consent was obtained, the p atient's abdomen was scanned. The RLQ of the abdomen was selected for paracente sis. After the largest fluid pocket area was marked, and the anterior abdominal wall was evaluated with color Doppler to exclude presence of blood vessels gurmeet ersing the area, the skin was prepped and draped in the usual sterile manner. A fter local anesthesia was achieved with 2% lidocaine, a 5 Maldivian one-step cathet er was advanced into the peritoneal cavity under ultrasound guidance. After comp letion of drainage, the catheter was removed. There was no evidence of complicat ion. This procedure was performed by LAURENCE Colin under direct supervision of Timothy Kelly M.D. Impression:Successful ultrasound guided paracentesis. Si gned: Timothy Kelly MDReport Verified Date/Time: 02/13/2019 16:51:26 Reading Location: [address] Ultrasound Reading Room FLUID CELL COUNT WITH [id number] 12:52:00* Test Item Value Reference Range Comments APPEARANCE FLUID (BEAKER) (test hkrr=678) Hazy Clear COLOR FLUID (BEAKER) (test bfsm=355) Straw Colorless, Straw RBC FLUID (BEAKER) (test osnj=811) 79 /cu mm <=1 ADJUSTED WBC FLUID (BEAKER) (test edjl=8218) 59 /cu mm <=5 LINING CELLS (BEAKER) (test tydy=7573) 2 /cu mm <=1 NEUTROPHILS FLUID (BEAKER) (test pqkz=8480) 7 % LYMPHS FLUID (BEAKER) (test izdw=096) 20 % MONO/MACROPHAGE FLUID (BEAKER) (test esqv=879) 73 % EOSINOPHILS FLUID (BEAKER) (test fnan=701) 0 % BASO FLUID (BEAKER) (test lxgt=634) 0 % CONTAINER BODY FLUID (BEAKER) (test yicj=3447) EDTA Tube U/S, [id number] 18:58:00LIMIT PARACENTESIS to 5 LITERSAdminister 200 mL of albumin 25% (50 grams) IV x1 after paracentesis if 3 or more liters removed.Send ascitic fluid for cell count and differential.Reason for Exam:-> AscitesFINAL REPORT Ultrasound guided paracentesis. Clinical History: Ascites. Sedation: None. Taxi Driver: Anabel Thornton PA-C Turner [employer] Former Automatic: None. Estimated Blood Loss: < 1 cc. Specimen: 5000 cc of serous fluid, samples sent to laboratory. Technique: Informed consent was obtained. The risks of pain, bleeding, infection, bowel perforation, injury to adjacent structures, and adverse medication reactions wer e discussed with the patient. After informed consent was obtained, the patient 's abdomen was scanned. The RLQ of the abdomen was selected for paracentesis. After the largest fluid pocket area was marked, and the anterior abdominal wall was evaluated with color Doppler to exclude presence of blood vessels traversing the area, the skin was prepped and draped in the usual sterile manner. After l ocal anesthesia was achieved with 2% lidocaine, a 5 Maldivian one-step catheter was advanced into the peritoneal cavity under ultrasound guidance. After completion of drainage, the catheter was removed. There was no evidence of complication. T his procedure was performed by LAURENCE Colin under direct supervision of St issac Kelly M.D. Impression:Successful ultrasound guided paracentesis. Signed: Timothy Kelly MDReport Verified Date/Time: 02/10/2019 18:58:30 Reading Locati on: [facility] B1 P006J Ultrasound Reading Room FLUID CELL COUNT WITH DIFFERENTIAL 2019-02-10 15:01:00* Test Item Value Reference Range Comments APPEARANCE FLUID (BEAKER) (test tsbk=381) Slightly Hazy Clear COLOR FLUID (BEAKER) (test gxkj=255) Straw Colorless, Straw RBC FLUID (BEAKER) (test mamo=035) 60 /cu mm <=1 ADJUSTED WBC FLUID (BEAKER) (test ibgc=6952) 63 /cu mm <=5 LINING CELLS (BEAKER) (test xtge=7524) 1 /cu mm <=1 NEUTROPHILS FLUID (BEAKER) (test daho=5475) 4 % LYMPHS FLUID (BEAKER) (test lisn=722) 14 % MONO/MACROPHAGE FLUID (BEAKER) (test gcbb=447) 82 % EOSINOPHILS FLUID (BEAKER) (test agta=576) 0 % BASO FLUID (BEAKER) (test qstn=602) 0 % CONTAINER BODY FLUID (BEAKER) (test wzuw=3265) EDTA Tube BODY FLUID CELL COUNT WITH [id number] 16:32:00* Test Item Value Reference Range Comments APPEARANCE FLUID (BEAKER) (test dnvs=971) Slightly Hazy Clear COLOR FLUID (BEAKER) (test spiy=727) Straw Colorless, Straw RBC FLUID (BEAKER) (test eenz=746) 140 /cu mm <=1 ADJUSTED WBC FLUID (BEAKER) (test dkax=4437) 60 /cu mm <=5 LINING CELLS (BEAKER) (test kgro=4967) 0 /cu mm <=1 NEUTROPHILS FLUID (BEAKER) (test jkya=7037) 2 % LYMPHS FLUID (BEAKER) (test kqda=447) 16 % MONO/MACROPHAGE FLUID (BEAKER) (test pmqr=497) 82 % EOSINOPHILS FLUID (BEAKER) (test ypau=431) 0 % BASO FLUID (BEAKER) (test hwua=206) 0 % CONTAINER BODY FLUID (BEAKER) (test wfjd=5936) EDTA Tube U/S, [id number] 12:26:00LIMIT PARACENTESIS to 5 LITERSAdminister 200 mL of albumin 25% (50 grams) IV x1 after paracentesis if 3 or more liters removed.Send ascitic fluid for cell count and differential.Reason for Exam:-> AscitesFINAL REPORT Ultrasound guided paracentesis, 02/07/2019. Clinical History: Ascites. Sedation: None. Radiologist: Timothy Kelly MD Turner [employer] Former Automatic: None. Estimated Blood Loss: < 1 cc. Specimen: 5000 cc of clear yellow fluid, samples sent to laboratory. Technique: Informed consent was obtained. The risks of pain, bleeding, infection, bowel perforation, injury to adjacent structures, and adverse medication reactions were discussed with the patient. After informed consent was obtained, the p atient's abdomen was scanned. The right lower quadrant of the abdomen was selec cristian for paracentesis. After the largest fluid pocket area was marked, and the a nterior abdominal wall was evaluated with color Doppler to exclude presence of b lood vessels traversing the area, the skin was prepped and draped in the usual s terile manner. After local anesthesia was achieved with 1% lidocaine, a 5 Frenc h one-step catheter was advanced into the peritoneal cavity under ultrasound karolina dance. After completion of drainage, the catheter was removed. There was no evid ence of complication. Impression:Successful ultrasound guided paracentesis. Sign ed: Timothy Kelly MDReport Verified Date/Time: 02/07/2019 12:26:44 Reading Lo cation: [facility] B1 P048 Angio Body Reading Room W/PLT COUNT & AUTO DIFFERENTIAL 2019-02-07 08:51:00* Test Item Value Reference Range Comments WHITE BLOOD CELL COUNT (BEAKER) (test tdok=408) 4.2 K/ L 3.5-10.5 RED BLOOD CELL COUNT (BEAKER) (test uepl=071) 2.01 M/ L 4.63-6.08 HEMOGLOBIN (BEAKER) (test ansg=668) 6.1 GM/DL 13.7-17.5 HEMATOCRIT (BEAKER) (test iwhb=355) 18.6 % 40.1-51.0 MEAN CORPUSCULAR VOLUME (BEAKER) (test xjyo=604) 92.5 fL 79.0-92.2 MEAN CORPUSCULAR HEMOGLOBIN (BEAKER) (test wkwv=534) 30.3 pg 25.7-32.2 MEAN CORPUSCULAR HEMOGLOBIN CONC (BEAKER) (test hfne=733) 32.8 GM/DL 32.3-36.5 RED CELL DISTRIBUTION WIDTH (BEAKER) (test xvli=956) 15.2 % 11.6-14.4 PLATELET COUNT (BEAKER) (test pwub=871) 64 K/CU MM 150-450 MEAN PLATELET VOLUME (BEAKER) (test xgqh=692) 10.6 fL 9.4-12.4 NUCLEATED RED BLOOD CELLS (BEAKER) (test hoay=951) 0 /100 WBC 0-0 NEUTROPHILS RELATIVE PERCENT (BEAKER) (test rwag=232) 85 % LYMPHOCYTES RELATIVE PERCENT (BEAKER) (test uheu=590) 5 % MONOCYTES RELATIVE PERCENT (BEAKER) (test gepm=348) 7 % EOSINOPHILS RELATIVE PERCENT (BEAKER) (test crbb=385) 3 % BASOPHILS RELATIVE PERCENT (BEAKER) (test dckp=157) 0 % NEUTROPHILS ABSOLUTE COUNT (BEAKER) (test edmw=798) 3.58 K/ L 1.78-5.38 LYMPHOCYTES ABSOLUTE COUNT (BEAKER) (test mxin=315) 0.20 K/ L 1.32-3.57 MONOCYTES ABSOLUTE COUNT (BEAKER) (test skfb=976) 0.29 K/ L 0.30-0.82 EOSINOPHILS ABSOLUTE COUNT (BEAKER) (test aujn=978) 0.13 K/ L 0.04-0.54 BASOPHILS ABSOLUTE COUNT (BEAKER) (test wygv=592) 0.01 K/ L 0.01-0.08 IMMATURE GRANULOCYTES-RELATIVE PERCENT (BEAKER) (test cmcb=2367) 1 % 0-1 BASIC METABOLIC [id number] 08:28:00* Test Item Value Reference Range Comments SODIUM (BEAKER) (test gafb=825) 130 meq/L 136-145 POTASSIUM (BEAKER) (test emwb=967) 4.1 meq/L 3.5-5.1 CHLORIDE (BEAKER) (test hjqw=315) 99 meq/L 98-107 CO2 (BEAKER) (test agxa=545) 20 meq/L 22-29 BLOOD UREA NITROGEN (BEAKER) (test oxou=187) 81 mg/dL 7-21 CREATININE (BEAKER) (test azhy=033) 3.61 mg/dL 0.57-1.25 GLUCOSE RANDOM (BEAKER) (test yixr=000) 142 mg/dL 70-105 CALCIUM (BEAKER) (test ifje=793) 8.2 mg/dL 8.4-10.2 EGFR (BEAKER) (test pxbm=6879) 18 mL/min/1.73 sq m ESTIMATED GFR IS NOT ACCURATE CREATININE CLEARANCE IN PREDICTING GLOMERULAR FILTRATION RATE. ESTIMATED GFR IS NOT APPLICABLE FOR DIALYSIS PATIENTS. PROTHROMBIN [id number] 08:22:00* Test Item Value Reference Range Comments PROTIME (BEAKER) (test oegj=362) 15.3 seconds 11.9-14.2 INR (BEAKER) (test xhno=404) 1.3 <=5.9 Effective 11/20/2018: PT Reference Range ChangeNew: 11.9-14.2 Previous: 11.7-14. 7RECOMMENDED COUMADIN/WARFARIN INR THERAPY RANGESSTANDARD DOSE: 2.0-3.0 Include s: PROPHYLAXIS for venous thrombosis, systemic embolization; TREATMENT for venou s thrombosis and/or pulmonary embolus.HIGH RISK: Target INR is 2.5-3.5 for patie nts wiht mechanical heart valves.[id number] 08:17:00* Test Item Value Reference Range Comments MAGNESIUM (BEAKER) (test ejll=599) 2.2 mg/dL 1.6-2.6 [id number] 08:08:00* Test Item Value Reference Range Comments PARTIAL THROMBOPLASTIN TIME (BEAKER) (test tyww=711) 35.5 seconds 22.5-36.0 U/S, [id number] 19:20:00LIMIT PARACENTESIS to 5 LITERSAdminister 200 mL of albumin 25% (50 grams) IV x1 after paracentesis if 3 or more liters removed.Send ascitic fluid for cell count and differential.Reason for Exam:-> AscitesFINAL REPORT Ultrasound guided paracentesis Clinical History: Ascites. Sedation: None. Taxi Driver: Sharon Troy PA-C Supervising Physician: Sreedhar Hand MD Turner And Former Automatic: None. Estimated Blood Loss: < 1 mL. Specimen: 5000 mL of clear yellow fluid, samples sent to laboratory. (5L limit) Technique: Informed consent was obtained. The risks of pain, bleeding, infection, bowel perforation, injury to adjacent structures, and adverse medication reactions were discussed with the patient. After informed consent was obtained, the patient's abdomen was scanned. The right lower quadrant of the abdomen was selected for paracentesis. After the largest fluid pocket area was marked, and the anterior abdominal wall was evaluated with color Doppler to exclude presence of blood vessels traversing the area, the skin was prepped and draped in the usual sterile manner. After local anesthesia was achieved with lidocaine, a 5 Maldivian one-step catheter was advanced into the peritoneal cavity under ultrasound guidance. After completion of drainage, the catheter was removed. There was no evidence of complication. Impression:Successful ultrasound guided paracentesis. Signed: Sreedhar Hand MDReport Verified Date/Time: 02/04/2019 19:20:14 Reading Location: [address] Ultrasound Reading Room FLUID CELL COUNT WITH [id number] 15:08:00* Test Item Value Reference Range Comments APPEARANCE FLUID (BEAKER) (test tegc=443) Slightly Hazy Clear COLOR FLUID (BEAKER) (test cstt=352) Straw Colorless, Straw RBC FLUID (BEAKER) (test shwu=884) 280 /cu mm <=1 ADJUSTED WBC FLUID (BEAKER) (test vplx=8314) 69 /cu mm <=5 LINING CELLS (BEAKER) (test bjtb=3078) 1 /cu mm <=1 NEUTROPHILS FLUID (BEAKER) (test afeu=4611) 2 % LYMPHS FLUID (BEAKER) (test bnzj=837) 14 % MONO/MACROPHAGE FLUID (BEAKER) (test vlyi=118) 84 % EOSINOPHILS FLUID (BEAKER) (test dsvr=926) 0 % BASO FLUID (BEAKER) (test aetv=631) 0 % CONTAINER BODY FLUID (BEAKER) (test pijy=4945) EDTA Tube BODY FLUID CELL COUNT WITH [id number] 15:41:00* Test Item Value Reference Range Comments APPEARANCE FLUID (BEAKER) (test uvdx=058) Clear Clear COLOR FLUID (BEAKER) (test vwrp=877) Yellow Colorless, Straw RBC FLUID (BEAKER) (test ntuy=875) 285 /cu mm <=1 ADJUSTED WBC FLUID (BEAKER) (test hzcj=7765) 80 /cu mm <=5 LINING CELLS (BEAKER) (test iwwa=0427) 1 /cu mm <=1 NEUTROPHILS FLUID (BEAKER) (test imbb=0769) 5 % LYMPHS FLUID (BEAKER) (test wcvq=321) 10 % MONO/MACROPHAGE FLUID (BEAKER) (test qetv=198) 85 % EOSINOPHILS FLUID (BEAKER) (test zucl=384) 0 % BASO FLUID (BEAKER) (test fcro=615) 0 % CONTAINER BODY FLUID (BEAKER) (test nfic=1547) EDTA Tube U/S, [id number] 11:56:00LIMIT PARACENTESIS to 5 LITERSAdminister 200 mL of albumin 25% (50 grams) IV x1 after paracentesis if 3 or more liters removed.Send ascitic fluid for cell count and differential.Reason for Exam:-> AscitesFINAL REPORT Ultrasound guided paracentesis. Clinical History: Ascites. Sedation: None. Taxi Driver: Anabel Thornton PA-C Turner And Former Automatic: None. Estimated Blood Loss: < 1 cc. Specimen: 5000 cc of clear yellow fluid, samples sent to laboratory. Technique: Informed consent was obtained. The risks of pain, bleeding, infection, bowel perforation, injury to adjacent structures, and adverse medication reactions were discussed with the patient. After informed consent was obtained, the p atient's abdomen was scanned. The RLQ of the abdomen was selected for paracente sis. After the largest fluid pocket area was marked, and the anterior abdominal wall was evaluated with color Doppler to exclude presence of blood vessels gurmeet ersing the area, the skin was prepped and draped in the usual sterile manner. A fter local anesthesia was achieved with 2% lidocaine, a 5 Maldivian one-step cathet er was advanced into the peritoneal cavity under ultrasound guidance. After comp letion of drainage, the catheter was removed. There was no evidence of complicat ion. Impression:Successful ultrasound guided paracentesis. Signed: Sreedhar Hand MDReport Verified Date/Time: 01/31/2019 11:56:24 Reading Location: [address] Ultrasound Reading Room U/S, [id number] 18:22:00LIMIT PARACENTESIS to 5 LITERSAdminister 200 mL of albumin 25% (50 grams) IV x1 after paracentesis if 3 or more liters removed.Send ascitic fluid for cell count and differential.Reason for Exam:->AscitesFINAL REPORT Ultrasound guided paracentesis Clinical History: Ascites. Sedation: None. Taxi Driver: Sharon Troy PA-C Supervising Physician: Sreedhar Hand MD Turner And Former Automatic: None. Estimated Blood Loss: < 1 mL. Specimen: 5000 mL of clear yellow fluid, samples sent to laboratory. Technique: Informed consent was obtained. The risks of pain, bleeding, infection, bowel perforation, injury to adjacent structures, and adverse medication reactions were discussed with the patient. After informed consent was obtained, the patient's abdomen was scanned. The right lower quadrant of the abdomen was selected for paracentesis. After the largest fluid pocket area was marked, and the anterior abdominal wall was evaluated with color Doppler to exclude presence of blood vessels traversing the area, the skin was prepped and draped in the usual sterile manner. After local anesthesia was achieved with lidocaine, a 5 Maldivian one-step catheter was advanced into the peritoneal cavity under ultrasound guidance. After completion of drainage, the catheter was removed. There was no evidence of complication. Impression:Successful ultrasound guided paracentesis. Signed: Sreedhar Hand MDReport Verified Date/Time: 01/28/2019 18:22:56 Reading Location: [address] Ultrasound Reading Room FLUID CELL COUNT WITH [id number] 12:11:00* Test Item Value Reference Range Comments APPEARANCE FLUID (BEAKER) (test fnfd=196) Clear Clear COLOR FLUID (BEAKER) (test xvoc=719) Yellow Colorless, Straw RBC FLUID (BEAKER) (test puil=979) 29 /cu mm <=1 ADJUSTED WBC FLUID (BEAKER) (test ozyy=6709) 70 /cu mm <=5 LINING CELLS (BEAKER) (test eyen=3964) 23 /cu mm <=1 NEUTROPHILS FLUID (BEAKER) (test ixwm=3710) 4 % LYMPHS FLUID (BEAKER) (test gyhh=349) 19 % MONO/MACROPHAGE FLUID (BEAKER) (test naby=287) 77 % EOSINOPHILS FLUID (BEAKER) (test pxdn=733) 0 % BASO FLUID (BEAKER) (test wrvk=960) 0 % CONTAINER BODY FLUID (BEAKER) (test bbph=2341) EDTA Tube U/S, [id number] 08:58:00LIMIT PARACENTESIS to 5 LITERSAdminister 200 mL of albumin 25% (50 grams) IV x1 after paracentesis if 3 or more liters removed.Send ascitic fluid for cell count and differential.Reason for Exam:-> AscitesFINAL REPORT Ultrasound guided paracentesis. Clinical History: Ascites. Sedation: None. Operators: This procedure was performed by LAURENCE Colin under direct supervision of Dionicio Song M.D. Turner And Former Automatic: None. Estimated Blood Loss: < 1 cc. Specimen: 5000 cc of clear yellow fluid, samples sent to laboratory. Technique: Informed consent was obtained. The risks of pain, bleeding, infection, bowel perforation, injury to adjacent structures, and adverse medication reactions were discussed with the patient. After informed consent was obtained, the p atient's abdomen was scanned. The RLQ of the abdomen was selected for paracente sis. After the largest fluid pocket area was marked, and the anterior abdominal wall was evaluated with color Doppler to exclude presence of blood vessels gurmeet ersing the area, the skin was prepped and draped in the usual sterile manner. A fter local anesthesia was achieved with 2% lidocaine, a 5 Maldivian one-step cathet er was advanced into the peritoneal cavity under ultrasound guidance. After comp letion of drainage, the catheter was removed. There was no evidence of complicat ion. Impression:Successful ultrasound guided paracentesis. Signed: Dionicio Song MDReport Verified Date/Time: 01/27/2019 08:58:03 Reading Location: [facility] P006J Ultrasound Reading Room FLUID CELL COUNT WITH [id number] 12:49:00* Test Item Value Reference Range Comments APPEARANCE FLUID (BEAKER) (test ymct=218) Clear Clear COLOR FLUID (BEAKER) (test ovdo=486) Yellow Colorless, Straw RBC FLUID (BEAKER) (test hyra=621) 95 /cu mm <=1 ADJUSTED WBC FLUID (BEAKER) (test ciov=0976) 83 /cu mm <=5 LINING CELLS (BEAKER) (test pnoe=8977) 2 /cu mm <=1 NEUTROPHILS FLUID (BEAKER) (test gybc=7170) 8 % LYMPHS FLUID (BEAKER) (test xiim=875) 28 % MONO/MACROPHAGE FLUID (BEAKER) (test wtlg=016) 64 % EOSINOPHILS FLUID (BEAKER) (test pyap=941) 0 % BASO FLUID (BEAKER) (test itkq=169) 0 % CONTAINER BODY FLUID (BEAKER) (test divu=7251) EDTA Tube BODY FLUID CELL COUNT WITH [id number] 16:32:00* Test Item Value Reference Range Comments APPEARANCE FLUID (BEAKER) (test fzfd=953) Clear Clear COLOR FLUID (BEAKER) (test vfye=505) Yellow Colorless, Straw RBC FLUID (BEAKER) (test qkyq=949) 172 /cu mm <=1 ADJUSTED WBC FLUID (BEAKER) (test tcfs=5711) 53 /cu mm <=5 LINING CELLS (BEAKER) (test nptg=9092) 0 /cu mm <=1 NEUTROPHILS FLUID (BEAKER) (test zuto=3528) 8 % LYMPHS FLUID (BEAKER) (test fjhr=747) 11 % MONO/MACROPHAGE FLUID (BEAKER) (test sycl=517) 81 % EOSINOPHILS FLUID (BEAKER) (test jpfm=240) 0 % BASO FLUID (BEAKER) (test obdf=592) 0 % CONTAINER BODY FLUID (BEAKER) (test jpvv=7102) EDTA Tube U/S, [id number] 13:38:00LIMIT PARACENTESIS to 5 LITERSAdminister 200 mL of albumin 25% (50 grams) IV x1 after paracentesis if 3 or more liters removed.Send ascitic fluid for cell count and differential.Reason for Exam:-> AscitesFINAL REPORT Ultrasound guided paracentesis Clinical History: Ascites. Sedation: None. Taxi Driver: Sharon Troy PA-C Supervising Physician: Timothy Kelly MD Turner [employer] Former Automatic: None. Estimated Blood Loss: < 1 mL. Specimen: 5000 mL of clear yellow fluid, samples sent to laboratory. Technique: Informed consent was obtained. The risks of pain, bleeding, infection, bowel perforation, injury to adjacent structures, and adverse medication reactions were discussed with the patient. After informed consent was obtained, the patient's abdomen was scanned. The right lower quadrant of the abdomen was selected for paracentesis. After the largest fluid pocket area was marked, and the anterior abdominal wall was evaluated with color Doppler to exclude presence of blood vessels traversing the area, the skin was prepped and draped in the usual sterile manner. After local anesthesia was achieved with lidocaine, a 5 Maldivian one-step catheter was advanced into the peritoneal cavity under ultrasound guidance. After completion of drainage, the catheter was removed. There was no evidence of complication. This procedure was performed by LAURENCE Condon under direct supervision of Timothy Kelly M.D. Impression:Successful ultrasound guided paracentesis. Signed: Timothy Kelly MDReport Verified Date/Time: 01/20/2019 13:38:54 Reading Location: [facility] P006J Ultrasound Reading Room U/S, [id number] 17:29:00Limit fluid removal to 5 liters per procedure.Administer 200 mL of albumin 25% (50 grams) IV x1 after paracentesis if 3 or more liters removed.Send ascitic fluid for cell count and differential.Reason for Exam:->AscitesFINAL REPORT Ultrasound guided paracentesis. Clinical History: Ascites. Sedation: None. Operators: This procedure was performed by LAURENCE Colin under direct supervision of Dionicio Song M.D. Turner And Former Automatic: None. Estimated Blood Loss: < 1 cc. Specimen: 5000 cc of clear yellow fluid, samples sent to laboratory. Technique: Informed consent was obtained. The risks of pain, bleeding, infection, bowel perforation, injury to adjacent structures, and adverse medication reactions were discussed with the patient. After informed consent was obtained, the patient's abdomen was scanned. The RLQ of the abdomen was selected for paracentesis. After the largest fluid pocket area was marked, and the anterior abdominal wall was evaluated with color Doppler to exclude presence of blood vessels traversing the area, the skin was prepped and draped in the usual sterile manner. After local anesthesia was achieved with 2% lidocaine, a 5 Maldivian one-step catheter was advanced into the peritoneal cavity under ultrasound guidance. After completion of drainage, the catheter was removed. There was no evidence of complication. Impression:Successful ultrasound guided paracentesis. Signed: Dionicio Song MDReport Verified Date/Time: 01/17/2019 17:29:30 Reading Location: [address] Ultrasound Reading Room FLUID CELL COUNT WITH [id number] 11:05:00* Test Item Value Reference Range Comments APPEARANCE FLUID (BEAKER) (test yucb=457) Clear Clear COLOR FLUID (BEAKER) (test lfml=292) Yellow Colorless, Straw RBC FLUID (BEAKER) (test kpja=855) 450 /cu mm <=1 ADJUSTED WBC FLUID (BEAKER) (test wxne=6390) 62 /cu mm <=5 LINING CELLS (BEAKER) (test gqkh=5291) 2 /cu mm <=1 NEUTROPHILS FLUID (BEAKER) (test fobl=4863) 8 % LYMPHS FLUID (BEAKER) (test jlug=203) 13 % MONO/MACROPHAGE FLUID (BEAKER) (test qyul=020) 79 % EOSINOPHILS FLUID (BEAKER) (test vkkr=555) 0 % BASO FLUID (BEAKER) (test pdet=199) 0 % CONTAINER BODY FLUID (BEAKER) (test fmnf=6344) Sterile Cup U/S, [id number] 19:22:00Limit fluid removal to 5 liters per procedure.Administer 200 mL of albumin 25% (50 grams) IV x1 after paracentesis if 3 or more liters removed.Send ascitic fluid for cell count and differential.Reason for Exam:->AscitesFINAL REPORT Ultrasound guided paracentesis. Clinical History: Ascites. Sedation: None. Operators: This procedure was performed by LAURENCE Colin under direct supervision of Dionicio Song M.D. Turner And Former Automatic: None. Estimated Blood Loss: < 1 cc. Specimen: 5000 cc of clear yellow fluid, samples sent to laboratory. Technique: Informed consent was obtained. The risks of pain, bleeding, infection, bowel perforation, injury to adjacent structures, and adverse medication reactions were discussed with the patient. After informed consent was obtained, the patient's abdomen was scanned. The RLQ of the abdomen was selected for paracentesis. After the largest fluid pocket area was marked, and the anterior abdominal wall was evaluated with color Doppler to exclude presence of blood vessels traversing the area, the skin was prepped and draped in the usual sterile manner. After local anesthesia was achieved with 2% lidocaine, a 5 Maldivian one-step catheter was advanced into the peritoneal cavity under ultrasound guidance. After completion of drainage, the catheter was removed. There was no evidence of complication. Impression:Successful ultrasound guided paracentesis. Signed: Dionicio Song MDReport Verified Date/Time: 01/13/2019 19:22:51 Reading Location: [address] Ultrasound Reading Room FLUID CELL COUNT WITH [id number] 13:47:00* Test Item Value Reference Range Comments APPEARANCE FLUID (BEAKER) (test neeh=618) Clear Clear COLOR FLUID (BEAKER) (test ykin=282) Yellow Colorless, Straw RBC FLUID (BEAKER) (test rthz=181) 763 /cu mm <=1 ADJUSTED WBC FLUID (BEAKER) (test wver=4477) 88 /cu mm <=5 LINING CELLS (BEAKER) (test mavc=0329) 0 /cu mm <=1 NEUTROPHILS FLUID (BEAKER) (test ikwm=6293) 3 % LYMPHS FLUID (BEAKER) (test jsly=884) 16 % MONO/MACROPHAGE FLUID (BEAKER) (test qqbr=150) 81 % EOSINOPHILS FLUID (BEAKER) (test hudb=053) 0 % BASO FLUID (BEAKER) (test mbig=112) 0 % CONTAINER BODY FLUID (BEAKER) (test qtfz=8092) EDTA Tube U/S, [id number] 17:04:00Limit fluid removal to 5 liters per procedure.Administer 200 mL of albumin 25% (50 grams) IV x1 after paracentesis if 3 or more liters removed.Send ascitic fluid for cell count and differential.Reason for Exam:->AscitesFINAL REPORT Ultrasound guided paracentesis Clinical History: Ascites. Sedation: None. Taxi Driver: Sharon Troy PA-C Supervising Physician: Sreedhar Hand MD [employer] Former Automatic: None. Estimated Blood Loss: < 1 mL. Specimen: 5000 mL of clear yellow fluid, samples sent to laboratory. Technique: Informed consent was obtained. The risks of pain, bleeding, infection, bowel perforation, injury to adjacent structures, and adverse medication reactions were discussed with the patient. After informed consent was obtained, the patient's abdomen was scanned. The right lower quadrant of the abdomen was selected for paracentesis. After the largest fluid pocket area was marked, and the anterior abdominal wall was evaluated with color Doppler to exclude presence of blood vessels traversing the area, the skin was prepped and draped in the usual sterile manner. After local anesthesia was achieved with lidocaine, a 5 Maldivian one-step catheter was advanced into the peritoneal cavity under ultrasound guidance. After completion of drainage, the catheter was removed. There was no evidence of complication. Impression:Successful ultrasound guided paracentesis. Signed: Sreedhar Hand MDReport Verified Date/Time: 01/10/2019 17:04:28 Reading Location: [facility] P006J Ultrasound Reading Room FLUID CELL COUNT WITH [id number] 11:00:00* Test Item Value Reference Range Comments APPEARANCE FLUID (BEAKER) (test ygxt=152) Clear Clear COLOR FLUID (BEAKER) (test xohl=671) Yellow Colorless, Straw RBC FLUID (BEAKER) (test khfg=394) 1875 /cu mm <=1 ADJUSTED WBC FLUID (BEAKER) (test jvnc=8031) 62 /cu mm <=5 LINING CELLS (BEAKER) (test rfxx=9814) 2 /cu mm <=1 NEUTROPHILS FLUID (BEAKER) (test ytdy=9188) 0 % LYMPHS FLUID (BEAKER) (test swxp=467) 12 % MONO/MACROPHAGE FLUID (BEAKER) (test iawn=884) 88 % EOSINOPHILS FLUID (BEAKER) (test pcxd=972) 0 % BASO FLUID (BEAKER) (test mhhu=273) 0 % CONTAINER BODY FLUID (BEAKER) (test hgdn=6107) Sterile Cup U/S, [id number] 16:09:00Limit fluid removal to 5 liters per procedure.Administer 200 mL of albumin 25% (50 grams) IV x1 after paracentesis if 3 or more liters removed.Send ascitic fluid for cell count and differential.Reason for Exam:->AscitesFINAL REPORT HISTORY : Ascites Technique/findings:Informed written consent was obtained. Discussion of risks, benefits, and alternatives were made with the patient. The patient expressed understanding and agreed to proceed. A universal timeout was performed prior to starting the procedure. Initial ultrasound images demonstrate large volume of ascites. A pocket of fluid was identified in the right lower quadrant of the abdomen. This area was marked. The area was prepped and draped in the usual sterile fashion. 1% lidocaine was applied to the skin and deep soft tissues. A 5 Maldivian one-step catheter was inserted and removed from the peritoneal space and approximately 5.0 liters of clear yellow fluid was aspirated from the abdomen. Specimens were collected for the lab. There were no immediate complications. Impression: Successful ultrasound guided paracentesis with aspiration of 5.0 liters of fluid. Signed: Dionicio Songort Verified Date/Time: 01/06/2019 16:09:52 Reading Location: [facility] P048 Angio Body Reading Room FLUID CELL COUNT WITH [id number] 11:25:00* Test Item Value Reference Range Comments APPEARANCE FLUID (BEAKER) (test nozi=649) Clear Clear COLOR FLUID (BEAKER) (test wiye=346) Yellow Colorless, Straw RBC FLUID (BEAKER) (test jzys=556) 145 /cu mm <=1 ADJUSTED WBC FLUID (BEAKER) (test uirh=9930) 51 /cu mm <=5 LINING CELLS (BEAKER) (test schy=4758) 22 /cu mm <=1 NEUTROPHILS FLUID (BEAKER) (test izsr=9258) 1 % LYMPHS FLUID (BEAKER) (test kaxq=258) 19 % MONO/MACROPHAGE FLUID (BEAKER) (test tsem=743) 80 % EOSINOPHILS FLUID (BEAKER) (test blbz=374) 0 % BASO FLUID (BEAKER) (test liyz=496) 0 % CONTAINER BODY FLUID (BEAKER) (test eami=7985) EDTA Tube PROTHROMBIN TIME/[id number] 07:39:00* Test Item Value Reference Range Comments PROTIME (BEAKER) (test ygfk=012) 16.5 seconds 11.9-14.2 INR (BEAKER) (test gnlc=794) 1.4 <=5.9 Effective 11/20/2018: PT Reference Range ChangeNew: 11.9-14.2 Previous: 11.7-14. 7RECOMMENDED COUMADIN/WARFARIN INR THERAPY RANGESSTANDARD DOSE: 2.0-3.0 Include s: PROPHYLAXIS for venous thrombosis, systemic embolization; TREATMENT for venou s thrombosis and/or pulmonary embolus.HIGH RISK: Target INR is 2.5-3.5 for patie nts wiht mechanical heart valves.[id number] 07:39:00* Test Item Value Reference Range Comments PARTIAL THROMBOPLASTIN TIME (BEAKER) (test qyux=412) 32.8 seconds 22.5-36.0 CBC W/PLT COUNT & AUTO [id number] 07:38:00* Test Item Value Reference Range Comments WHITE BLOOD CELL COUNT (BEAKER) (test ejjd=632) 6.9 K/ L 3.5-10.5 RED BLOOD CELL COUNT (BEAKER) (test ourt=889) 2.56 M/ L 4.63-6.08 HEMOGLOBIN (BEAKER) (test vjbj=069) 7.7 GM/DL 13.7-17.5 HEMATOCRIT (BEAKER) (test safr=021) 23.8 % 40.1-51.0 MEAN CORPUSCULAR VOLUME (BEAKER) (test qrss=750) 93.0 fL 79.0-92.2 MEAN CORPUSCULAR HEMOGLOBIN (BEAKER) (test unuv=327) 30.1 pg 25.7-32.2 MEAN CORPUSCULAR HEMOGLOBIN CONC (BEAKER) (test azpp=422) 32.4 GM/DL 32.3-36.5 RED CELL DISTRIBUTION WIDTH (BEAKER) (test xwao=829) 14.9 % 11.6-14.4 PLATELET COUNT (BEAKER) (test xbam=762) 55 K/CU MM 150-450 MEAN PLATELET VOLUME (BEAKER) (test ikap=250) 11.3 fL 9.4-12.4 NUCLEATED RED BLOOD CELLS (BEAKER) (test khxj=728) 0 /100 WBC 0-0 NEUTROPHILS RELATIVE PERCENT (BEAKER) (test psqm=744) 85 % LYMPHOCYTES RELATIVE PERCENT (BEAKER) (test nrdj=076) 5 % MONOCYTES RELATIVE PERCENT (BEAKER) (test sjpb=467) 6 % EOSINOPHILS RELATIVE PERCENT (BEAKER) (test szct=005) 3 % BASOPHILS RELATIVE PERCENT (BEAKER) (test bggh=518) 0 % NEUTROPHILS ABSOLUTE COUNT (BEAKER) (test lery=162) 5.80 K/ L 1.78-5.38 LYMPHOCYTES ABSOLUTE COUNT (BEAKER) (test sjwo=667) 0.33 K/ L 1.32-3.57 MONOCYTES ABSOLUTE COUNT (BEAKER) (test xkdp=228) 0.43 K/ L 0.30-0.82 EOSINOPHILS ABSOLUTE COUNT (BEAKER) (test aggv=240) 0.22 K/ L 0.04-0.54 BASOPHILS ABSOLUTE COUNT (BEAKER) (test gcjc=736) 0.03 K/ L 0.01-0.08 IMMATURE GRANULOCYTES-RELATIVE PERCENT (BEAKER) (test wixo=9132) 1 % 0-1 U/S, [id number] 20:33:00Administer 200 mL of albumin 25% (50 grams) IV x1 after paracentesis if 3 or more liters removed. Send ascitic fluid for cell count and differential. Reason for Exam:->ascitesFINAL REPORT Ultrasound guided paracentesis Clinical History: Ascites. Sedation: None. Taxi Driver: Sharon Troy PA-C Supervising Physician: Sreedhar Hand MD [employer] Former Automatic: None. Estimated Blood Loss: < 1 mL. Specimen: 5000 mL of clear yellow fluid, samples sent to laboratory. Technique: Informed consent was obtained. The risks of pain, bleeding, infection, bowel perforation, injury to adjacent structures, and adverse medication reactions were discussed with the patient. After informed consent was obtained, the p atient's abdomen was scanned. The right lower quadrant of the abdomen was selec cristian for paracentesis. After the largest fluid pocket area was marked, and the a nterior abdominal wall was evaluated with color Doppler to exclude presence of b lood vessels traversing the area, the skin was prepped and draped in the usual s terile manner. After local anesthesia was achieved with lidocaine, a 5 Maldivian o ne-step catheter was advanced into the peritoneal cavity under ultrasound guidan ce. After completion of drainage, the catheter was removed. There was no evidenc e of complication. Impression:Successful ultrasound guided paracentesis. Signed: Sreedhar Hand MDReport Verified Date/Time: 01/03/2019 20:33:34 Reading Locatio n: [facility] P006J Ultrasound Reading Room FLUID CELL COUNT WITH DIFFERENTIAL 2019-01-03 14:59:00* Test Item Value Reference Range Comments APPEARANCE FLUID (BEAKER) (test bzvx=651) Clear Clear COLOR FLUID (BEAKER) (test ppdt=693) Yellow Colorless, Straw RBC FLUID (BEAKER) (test ccud=744) 165 /cu mm <=1 ADJUSTED WBC FLUID (BEAKER) (test ffzd=4368) 75 /cu mm <=5 LINING CELLS (BEAKER) (test mqbi=0093) 1 /cu mm <=1 NEUTROPHILS FLUID (BEAKER) (test stlk=5871) 9 % LYMPHS FLUID (BEAKER) (test kwdr=042) 43 % MONO/MACROPHAGE FLUID (BEAKER) (test leoa=965) 47 % EOSINOPHILS FLUID (BEAKER) (test gueo=954) 1 % BASO FLUID (BEAKER) (test fvap=329) 0 % CONTAINER BODY FLUID (BEAKER) (test uoxn=2778) EDTA Tube U/S, [id number] 15:34:00LIMIT PARACENTESIS to 5 litersAdminister 200 mL of albumin 25% (50 grams) IV x1 after paracentesis if 3 or more liters removed.Send ascitic fluid for cell count and differential.Reason for Exam:-> AscitesFINAL REPORT Ultrasound guided paracentesis. Clinical History: Ascites. Sedation: None. Operators: This procedure was performed by LAURENCE Colin under direct supervision of Dionicio Song M.D. Estimated Blood Loss: < 1 cc. Specimen: 5000 cc of clear yellow fluid, samples sent to laboratory. Technique: Informed consent was obtained. The risks of pain, bleeding, infection, bowel perforation, injury to adjacent structures, and adverse medication reactions were discussed with the patient. After informed consent was obtained, the patient's abdomen was scanned. The RLQ of the abdomen was selected for paracentesis. After the largest fluid pocket area was marked, and the anterior abdominal wall was evaluated with color Doppler to exclude presence of blood vessels traversing the area, the skin was prepped and draped in the usual sterile manner. After local anesthesia was achieved with 2% lidocaine, a 5 Maldivian one-step catheter was advanced into the peritoneal cavity under ultrasound guidance. After completion of drainage, the catheter was removed. There was no evidence of complication. Impression:Successful ultrasound guided paracentesis. Signed: Dionicio Song MDReport Verified Date/Time: 12/27/2018 15:34:46 Reading Location: [address] Ultrasound Reading Room , PELVIS, WO [id number] 13:35:00Liver Prctocol- Triple PhaseFINAL REPORT INDICATION:Scrotal edema. Possible hernia. COMPARISON: None. TECHNIQUE: CT of the Pelvis was performed WITHOUT intravenous contrast. The exam was performed according to our department dose-optimization protocol, which includes automated exposure control, adjustments of mA and kV according to patient size. Iterative reconstructions are also sometimes employed. FINDINGS:There is large volume ascites which extends down bilateral inguinal hernias into the scrotum. The left inguinal canal measures 2.5 cm in diameter, the right inguinal canal is tighter measuring 1.0 cm. Both hernia sacs extend all the way down into the bottom of the scrotum. The left hernia sac measures up to 15 x 10 cm axial plane in the right hernia sac measures 10 x 10 cm. There is no bowel in either hernia. Diffuse body wall edema and prominent inguinal lymph nodes which are probably reactive. No pelvic lymphadenopathy demonstrated. Bladder, prostate, and visualized bowel loops unremarkable. No suspicious osseous lesion demonstrated. Lower lumbar vertebral degenerative changes noted. IMPRESSION:Large volume ascites with bilateral large inguinal hernias containing ascites fluid. No bowel in either inguinal hernia. Signed: Kwan Lockhart MDReport Verified Date/Time: 12/27/2018 13:35:48 Reading Location: [address] Radiology Reading Room FLUID CELL COUNT WITH [id number] 11:50:00* Test Item Value Reference Range Comments APPEARANCE FLUID (BEAKER) (test fjws=889) Slightly Hazy Clear COLOR FLUID (BEAKER) (test kkgs=958) Straw Colorless, Straw RBC FLUID (BEAKER) (test igau=969) 65 /cu mm <=1 ADJUSTED WBC FLUID (BEAKER) (test wasg=7377) 57 /cu mm <=5 LINING CELLS (BEAKER) (test kuxq=6821) 0 /cu mm <=1 NEUTROPHILS FLUID (BEAKER) (test nhsv=8004) 0 % LYMPHS FLUID (BEAKER) (test lohf=867) 21 % MONO/MACROPHAGE FLUID (BEAKER) (test kxzy=610) 79 % EOSINOPHILS FLUID (BEAKER) (test jmkb=083) 0 % BASO FLUID (BEAKER) (test vhgk=653) 0 % CONTAINER BODY FLUID (BEAKER) (test yfle=7249) EDTA Tube [id number] 11:49:00* Test Item Value Reference Range Comments POC-CREATININE (BEAKER) (test pylg=6255) 3.0 mg/dL 0.6-1.3 TESTED AT [facility] [address] [address] POC-EGFR (BEAKER) (test uylq=3968) 22 mL/min/1.73M2 [id number] 07:31:00* Test Item Value Reference Range Comments PARTIAL THROMBOPLASTIN TIME (BEAKER) (test bgsn=945) 35.9 seconds 22.5-36.0 PROTHROMBIN TIME/[id number] 07:30:00* Test Item Value Reference Range Comments PROTIME (BEAKER) (test iycw=347) 15.0 seconds 11.9-14.2 INR (BEAKER) (test gaeq=864) 1.2 <=5.9 Effective 11/20/2018: PT Reference Range ChangeNew: 11.9-14.2 Previous: 11.7-14. 7RECOMMENDED COUMADIN/WARFARIN INR THERAPY RANGESSTANDARD DOSE: 2.0-3.0 Include s: PROPHYLAXIS for venous thrombosis, systemic embolization; TREATMENT for venou s thrombosis and/or pulmonary embolus.HIGH RISK: Target INR is 2.5-3.5 for patie nts wiht mechanical heart valves.CBC W/PLT COUNT & AUTO [id number] 07:26:00* Test Item Value Reference Range Comments WHITE BLOOD CELL COUNT (BEAKER) (test jlyq=380) 4.2 K/ L 3.5-10.5 RED BLOOD CELL COUNT (BEAKER) (test bypq=223) 2.45 M/ L 4.63-6.08 HEMOGLOBIN (BEAKER) (test wpeh=345) 7.5 GM/DL 13.7-17.5 HEMATOCRIT (BEAKER) (test qqeh=688) 22.2 % 40.1-51.0 MEAN CORPUSCULAR VOLUME (BEAKER) (test hrdy=517) 90.6 fL 79.0-92.2 MEAN CORPUSCULAR HEMOGLOBIN (BEAKER) (test cyko=441) 30.6 pg 25.7-32.2 MEAN CORPUSCULAR HEMOGLOBIN CONC (BEAKER) (test okbd=230) 33.8 GM/DL 32.3-36.5 RED CELL DISTRIBUTION WIDTH (BEAKER) (test nxru=608) 15.4 % 11.6-14.4 PLATELET COUNT (BEAKER) (test gseg=087) 37 K/CU MM 150-450 MEAN PLATELET VOLUME (BEAKER) (test ugkh=300) 11.3 fL 9.4-12.4 NUCLEATED RED BLOOD CELLS (BEAKER) (test innc=189) 0 /100 WBC 0-0 NEUTROPHILS RELATIVE PERCENT (BEAKER) (test uwud=776) 82 % LYMPHOCYTES RELATIVE PERCENT (BEAKER) (test qdag=168) 6 % MONOCYTES RELATIVE PERCENT (BEAKER) (test odfo=360) 6 % EOSINOPHILS RELATIVE PERCENT (BEAKER) (test rmpj=221) 4 % BASOPHILS RELATIVE PERCENT (BEAKER) (test wtsd=075) 1 % NEUTROPHILS ABSOLUTE COUNT (BEAKER) (test gjex=830) 3.45 K/ L 1.78-5.38 LYMPHOCYTES ABSOLUTE COUNT (BEAKER) (test lejm=351) 0.26 K/ L 1.32-3.57 MONOCYTES ABSOLUTE COUNT (BEAKER) (test oxuc=356) 0.27 K/ L 0.30-0.82 EOSINOPHILS ABSOLUTE COUNT (BEAKER) (test vyvv=935) 0.16 K/ L 0.04-0.54 BASOPHILS ABSOLUTE COUNT (BEAKER) (test dpcn=064) 0.02 K/ L 0.01-0.08 IMMATURE GRANULOCYTES-RELATIVE PERCENT (BEAKER) (test afbf=9327) 1 % 0-1 POCT-GLUCOSE [id number] 14:42:00* Test Item Value Reference Range Comments POC-GLUCOSE METER (BEAKER) (test qwwi=9075) 122 mg/dL 70-110 TESTED AT [facility] [address] [facility] [address] BODY FLUID CELL COUNT WITH [id number] 14:49:00* Test Item Value Reference Range Comments APPEARANCE FLUID (BEAKER) (test wapq=992) Slightly Hazy Clear COLOR FLUID (BEAKER) (test fwok=734) Straw Colorless, Straw RBC FLUID (BEAKER) (test wcpt=408) 73 /cu mm <=1 ADJUSTED WBC FLUID (BEAKER) (test whql=2973) 70 /cu mm <=5 LINING CELLS (BEAKER) (test emgg=5008) 0 /cu mm <=1 NEUTROPHILS FLUID (BEAKER) (test aspb=9415) 0 % LYMPHS FLUID (BEAKER) (test eotv=742) 28 % MONO/MACROPHAGE FLUID (BEAKER) (test epwo=568) 72 % EOSINOPHILS FLUID (BEAKER) (test sybe=863) 0 % BASO FLUID (BEAKER) (test olnq=281) 0 % CONTAINER BODY FLUID (BEAKER) (test qkng=6450) EDTA Tube U/S, [id number] 14:29:00LIMIT PARACENTESIS to 5 litersAdminister 200 mL of albumin 25% (50 grams) IV x1 after paracentesis if 3 or more liters removed.Send ascitic fluid for cell count and differential.Reason for Exam:-> AscitesFINAL REPORT Ultrasound guided paracentesis. Clinical History: Ascites. Sedation: None. Taxi Driver: Anabel Thornton PA-C [employer] Former Automatic: None. Estimated Blood Loss: < 1 cc. Specimen: 5000 cc of clear yellow fluid, samples sent to laboratory. Technique: Informed consent was obtained. The risks of pain, bleeding, infection, bowel perforation, injury to adjacent structures, and adverse medication reactions were discussed with the patient. After informed consent was obtained, the p atient's abdomen was scanned. The LLQ of the abdomen was selected for paracente sis. After the largest fluid pocket area was marked, and the anterior abdominal wall was evaluated with color Doppler to exclude presence of blood vessels gurmeet ersing the area, the skin was prepped and draped in the usual sterile manner. A fter local anesthesia was achieved with 2% lidocaine, a 5 Maldivian one-step cathet er was advanced into the peritoneal cavity under ultrasound guidance. After comp letion of drainage, the catheter was removed. There was no evidence of complicat ion. This procedure was performed by LAURENCE Colin under direct supervision of Timothy Kelly M.D. Impression:Successful ultrasound guided paracentesis. Si gned: Timothy Kelly MDReport Verified Date/Time: 12/20/2018 14:29:59 Reading Location: [facility] P006J Ultrasound Reading Room U/S, [id number] 18:36:00 LIMIT PARACENTESIS to 5 litersAdminister 200 mL of albumin 25% (50 grams) IV x1 after paracentesis if 3 or more liters removed.Send ascitic fluid for cell count and differential.Reason for Exam:->AscitesFINAL REPORT Ultrasound guided paracentesis Clinical History: Ascites. Sedation: None. Taxi Driver: Anabel Thornton PA-C [employer] Former Automatic: None. Estimated Blood Loss: < 1 cc. Specimen: 5000 cc of clear yellow fluid, samples sent to laboratory. Technique: Informed consent was obtained. The risks of pain, bleeding, infection, bowel perforation, injury to adjacent structures, and adverse medication reactions were discussed with the patient. After informed consent was obtained, the patient's abdomen was scanned. The RLQ of the abdomen was selected for paracentesis. After the largest fluid pocket area was marked, and the anterior abdominal wall was evaluated with color Doppler to exclude presence of blood vessels traversing the area, the skin was prepped and draped in the usual sterile manner. After local anesthesia was achieved with 2% lidocaine, a 5 Maldivian one-step catheter was advanced into the peritoneal cavity under ultrasound guidance. After completion of drainage, the catheter was removed. There was no evidence of complication. This procedure was performed by LAURENCE Colin under direct supervision of Timothy Kelly M.D. Impression:Successful ultrasound guided paracentesis. Signed: Timothy Kelly MDReport Verified Date/Time: 12/16/2018 18:36:33 Reading Location: [address] Ultrasound Reading Room FLUID CELL COUNT WITH [id number] 14:42:00* Test Item Value Reference Range Comments APPEARANCE FLUID (BEAKER) (test vcjs=732) Slightly Hazy Clear COLOR FLUID (BEAKER) (test lfuy=748) Straw Colorless, Straw RBC FLUID (BEAKER) (test vihf=715) 99 /cu mm <=1 ADJUSTED WBC FLUID (BEAKER) (test dfqh=7849) 95 /cu mm <=5 LINING CELLS (BEAKER) (test kwlp=9534) 1 /cu mm <=1 NEUTROPHILS FLUID (BEAKER) (test afbn=5202) 0 % LYMPHS FLUID (BEAKER) (test wifr=718) 17 % MONO/MACROPHAGE FLUID (BEAKER) (test tktw=244) 83 % EOSINOPHILS FLUID (BEAKER) (test hdzm=417) 0 % BASO FLUID (BEAKER) (test zyui=924) 0 % CONTAINER BODY FLUID (BEAKER) (test iqod=5710) EDTA Tube U/S, [id number] 10:52:00LIMIT PARACENTESIS to 5 litersAdminister 200 mL of albumin 25% (50 grams) IV x1 after paracentesis if 3 or more liters removed.Send ascitic fluid for cell count and differential.Reason for Exam:-> AscitesFINAL REPORT Ultrasound guided paracentesis. Clinical History: Ascites. Sedation: None. Taxi Driver: Anabel Thornton PA-C [employer] Former Automatic: None. Estimated Blood Loss: < 1 cc. Specimen: 5000 cc of clear yellow fluid, samples sent to laboratory. Technique: Informed consent was obtained. The risks of pain, bleeding, infection, bowel perforation, injury to adjacent structures, and adverse medication reactions were discussed with the patient. After informed consent was obtained, the p atient's abdomen was scanned. The RLQ of the abdomen was selected for paracente sis. After the largest fluid pocket area was marked, and the anterior abdominal wall was evaluated with color Doppler to exclude presence of blood vessels gurmeet ersing the area, the skin was prepped and draped in the usual sterile manner. A fter local anesthesia was achieved with 2% lidocaine, a 5 Maldivian one-step cathet er was advanced into the peritoneal cavity under ultrasound guidance. After comp letion of drainage, the catheter was removed. There was no evidence of complicat ion. Impression:Successful ultrasound guided paracentesis. Signed: Олег Holt MDReport Verified Date/Time: 12/15/2018 10:52:33 Reading Location: [address] Ultrasound Reading Room Electronically signed by: Dell ANTHONY 12/15/2018 10:52 AM U/S, ABDOMINAL, [id number] 12:34:00Reason for Exam:->Screening for malignant neoplasmFINAL REPORT Ultrasound of the Abdomen, 12/13/2018. Clinical History: Screening for neoplasm. Comparison: 11/17/2017. Discussion:Sonographic evaluation of the abdomen is performed. Liver: 13.7 cm in length at the right midclavicular line, normal in size. Increased echogenicity. Heterogenous echotexture. No mass. Unchanged subcapsular fluid collection along the right liver. Main portal vein diameter 1.6 cm. Biliary tree: Common duct 9 mm. No intrahepatic biliary ductal dilatation. Gallbladder: No gallstones. No wall thickening. No pericholecystic fluid. Absent sonographic Arceo sign. Pancreas: Head, body, and proximal tail unremarkable. Ascites: Moderate ascites. Spleen: 21 cm in length, enlarged. Kidneys: Right kidney 12.1 cm in length, normal in size, with cortical thickness of 2.1 cm. Left kidney 14.0 cm in length, normal in size, with cortical thickness of 1.7 cm. Normal cortical echogenicity. No mass. No shadowing calculus. No hydronephrosis. IVC/Aorta: Segments partially seen. Unremarkable. Impression:1. Heterogenous appearance of the liver.2. M oderate ascites. Signed: Zakiya Quinteros MDReport Verified Date/Time: 9 12:34:17 Reading Location: [address] Radiology Reading Room [facility] signed by: ZAKIYA QUINTEROS M.D. on 12/13/2018 12:34 PM BODY FLUID CELL COUNT WITH [id number] 11:50:00* Test Item Value Reference Range Comments APPEARANCE FLUID (BEAKER) (test ccxi=740) Slightly Hazy Clear COLOR FLUID (BEAKER) (test bpnz=838) Yellow Colorless, Straw RBC FLUID (BEAKER) (test wqnw=080) 146 /cu mm <=1 ADJUSTED WBC FLUID (BEAKER) (test troy=7475) 78 /cu mm <=5 LINING CELLS (BEAKER) (test qcem=0458) 8 /cu mm <=1 NEUTROPHILS FLUID (BEAKER) (test rddn=5894) 2 % LYMPHS FLUID (BEAKER) (test kdwg=853) 24 % MONO/MACROPHAGE FLUID (BEAKER) (test iygn=190) 74 % EOSINOPHILS FLUID (BEAKER) (test svey=556) 0 % BASO FLUID (BEAKER) (test gqvx=519) 0 % CONTAINER BODY FLUID (BEAKER) (test sdfo=6191) EDTA Tube U/S, [id number] 10:16:00LIMIT PARACENTESIS to 5 litersAdminister 200 mL of albumin 25% (50 grams) IV x1 after paracentesis if 3 or more liters removed.Send ascitic fluid for cell count and differential.Reason for Exam:-> AscitesFINAL REPORT Ultrasound guided paracentesis. Clinical History: Ascites. Sedation: None. Taxi Driver: Anabel Thornton PA-C Turner And Former Automatic: None. Estimated Blood Loss: < 1 cc. Specimen: 5000 cc of clear yellow fluid, samples sent to laboratory. Technique: Informed consent was obtained. The risks of pain, bleeding, infection, bowel perforation, injury to adjacent structures, and adverse medication reactions were discussed with the patient. After informed consent was obtained, the p atient's abdomen was scanned. The RLQ of the abdomen was selected for paracente sis. After the largest fluid pocket area was marked, and the anterior abdominal wall was evaluated with color Doppler to exclude presence of blood vessels gurmeet ersing the area, the skin was prepped and draped in the usual sterile manner. A fter local anesthesia was achieved with 2% lidocaine, a 5 Maldivian one-step cathet er was advanced into the peritoneal cavity under ultrasound guidance. After comp letion of drainage, the catheter was removed. There was no evidence of complicat ion. Impression:Successful ultrasound guided paracentesis. Signed: Олег Holt Verified Date/Time: 12/11/2018 10:16:26 Reading Location: [address] Ultrasound Reading Room Electronically signed by: Dell ANTHONY 12/11/2018 10:[address], SPINE, THORACIC, WO [id number] 12:18:00FINAL REPORT CT Thoracic spine CLINICAL HISTORY: Lower thoracic lesion TECHNIQUE: Contiguous axial images of the thoracic spine with coronal and sagittal reformations to assess the alignment. This exam was performed according to the departmental dose optimization program which includes automated exposure control, adjustment of the mA and/or kV according to the patient size, and/or use of an iterative reconstruction technique. COMPARISON: Thoracic MRI 1 07/19/2017 FINDINGS: There is maintenance of the thoracic alignment and curvature . The vertebral body heights are preserved without fracture or dislocation. Ther e are a few scattered Schmorl's nodes. The bones are diffusely osteopenic. There is no discrete osseous lesion in the T9 vertebral body to correlate with the MRI appearance. The visualized upper abdomen demonstrates ascites and mesenteric e khadijah. The visualized lungs demonstrate right lower lobe consolidation. IMPRESSI ON: No discrete thoracic spine osseous lesions, with specific attention to the T 9 vertebral body. Signed: Stephanie Oliver Verified Date/Time: 12/10/2018 12:18:06 Reading Location: [facility] B1 C013V Neuro Reading Room FLUID CELL COUNT WITH [id number] 12:47:00* Test Item Value Reference Range Comments APPEARANCE FLUID (BEAKER) (test geao=154) Slightly Hazy Clear COLOR FLUID (BEAKER) (test osbs=470) Straw Colorless, Straw RBC FLUID (BEAKER) (test etya=224) 69 /cu mm <=1 ADJUSTED WBC FLUID (BEAKER) (test iooj=1978) 90 /cu mm <=5 LINING CELLS (BEAKER) (test kcbd=7005) 0 /cu mm <=1 NEUTROPHILS FLUID (BEAKER) (test ttmj=5145) 2 % LYMPHS FLUID (BEAKER) (test btga=809) 24 % MONO/MACROPHAGE FLUID (BEAKER) (test tkuv=810) 74 % EOSINOPHILS FLUID (BEAKER) (test ldco=344) 0 % BASO FLUID (BEAKER) (test emfr=018) 0 % CONTAINER BODY FLUID (BEAKER) (test buzh=4444) EDTA Tube BODY FLUID CELL COUNT WITH [id number] 13:08:00* Test Item Value Reference Range Comments APPEARANCE FLUID (BEAKER) (test lley=097) Slightly Hazy Clear COLOR FLUID (BEAKER) (test dipz=010) Yellow Colorless, Straw RBC FLUID (BEAKER) (test ourh=761) 60 /cu mm <=1 ADJUSTED WBC FLUID (BEAKER) (test pcxt=7879) 73 /cu mm <=5 LINING CELLS (BEAKER) (test snby=9840) 1 /cu mm <=1 NEUTROPHILS FLUID (BEAKER) (test qmgo=4616) 3 % LYMPHS FLUID (BEAKER) (test fmud=732) 29 % MONO/MACROPHAGE FLUID (BEAKER) (test vhsn=106) 68 % EOSINOPHILS FLUID (BEAKER) (test xfqj=121) 0 % BASO FLUID (BEAKER) (test ssiy=865) 0 % CONTAINER BODY FLUID (BEAKER) (test dwib=1971) EDTA Tube U/S, [id number] 10:09:00Administer 200 mL of albumin 25% (50 grams) IV x1 after paracentesis if 3 or more liters removed.Send ascitic fluid for cell count and differential. Limit of 5 liters to be removed per procedureReason for Exam:->AscitesFINAL REPORT PROCEDURE: Ultrasound-guided paracentesis. INDICATION: Ascites. DESCRIPTION: After obtaining informed written consent, ultrasound scan of the abdomen identified ascites in the right lower quadrant. The overlying skin was prepped and draped in the usual, sterile fashion and local 2% lidocaine anesthesia was administered. A 5 Maldivian catheter was advanced into the peritoneal cavity and 5000 cc of serous fluid was removed. The catheter was removed without immediate complication. Samples were sent for analysis. Albumin given. This procedure was performed by LAURENCE Colin under direct supervision of Timothy Kelly M.D. IMPRESSION:Uncomplicated ultrasound-guided paracentesis with 5000 cc fluid removed. Signed: Timothy Kelly MDReport Verified Date/Time: 12/02/2018 10:09:34 Reading Location: [address] Ultrasound Reading Room U/S, [id number] 10:05:00Administer 200 mL of albumin 25% (50 grams) IV x1 after paracentesis if 3 or more liters removed.Send ascitic fluid for cell count and differential. Limit of 5 liters to be removed per procedureReason for Exam:->AscitesFINAL REPORT Ultrasound guided paracentesis, 11/29/2018. Clinical History: Ascites. Sedation: None. Radiologist: Timothy Kelly MD This procedure was performed by LAURENCE Colin under direct supervision of Timothy Kelly M.D. Estimated Blood Loss: < 1 cc. Specimen: 5000 cc of clear yellow fluid, samples sent to laboratory. Technique: Informed consent was obtained. The risks of pain, bleeding, infection, bowel perforation, injury to adjacent structures, and adverse medication reactions were discussed with the patient. After informed consent was obtained, the patient's abdomen was scanned. The right lower quadrant of the abdomen was selected for paracentesis. After the largest fluid pocket area was marked, and the anterior abdominal wall was evaluated with color Doppler to exclude presence of blood vessels traversing the area, the skin was prepped and draped in the usual sterile manner. After local anesthesia was achieved with 1% lidocaine, a 5 Maldivian one-step catheter was advanced into the peritoneal cavity under ultrasound guidance. After completion of drainage, the catheter was removed. There was no evidence of complication. Impression:Successful ultrasound guided paracentesis. Signed: Timothy Kelly MDRrossort Verified Date/Time: 11/29/2018 10:05:38 Reading Location: [address] Body Reading Room U/S, [id number] 17:33:00Administer 200 mL of albumin 25% (50 grams) IV x1 after paracentesis if 3 or more liters removed.Send ascitic fluid for cell count and differential. Limit of 5 liters to be removed per procedureReason for Exam:->AscitesFINAL REPORT PROCEDURE: Ultrasound-guided paracentesis. Operators: This procedure was performed by LAURENCE Colin under my direct supervision. INDICATION: Ascites. DESCRIPTION: After obtaining informed written consent, ultrasound scan of the abdomen identified ascites in the right lower quadrant. The overlying skin was prepped and draped in the usual, sterile fashion and local 2% lidocaine anesthesia was administered. A 5 Maldivian catheter was advanced into the peritoneal cavity and 5000 cc of serous fluid was removed. The catheter was removed without immediate complication. Samples were sent for analysis. Albumin given. IMPRESSION:Uncomplicated ultrasound-guided paracentesis with 5000 cc fluid removed. Signed: Dionicio Song MDReport Verified Date/Time: 11/25/2018 17:33:52 Reading Location: [facility] P006 Ultrasound Reading Room Electronic ally signed by: DIONICIO SONG MD on 11/25/2018 05:33 PM BODY FLUID CELL COUNT WITH [id number] 13:33:00* Test Item Value Reference Range Comments APPEARANCE FLUID (BEAKER) (test rnjw=920) Clear Clear COLOR FLUID (BEAKER) (test copj=014) Yellow Colorless, Straw RBC FLUID (BEAKER) (test dyuy=814) 102 /cu mm <=1 ADJUSTED WBC FLUID (BEAKER) (test ugbr=2519) 145 /cu mm <=5 LINING CELLS (BEAKER) (test maij=9405) 0 /cu mm <=1 NEUTROPHILS FLUID (BEAKER) (test rsfx=3382) 4 % LYMPHS FLUID (BEAKER) (test kjlm=714) 14 % MONO/MACROPHAGE FLUID (BEAKER) (test umpb=381) 81 % EOSINOPHILS FLUID (BEAKER) (test mzux=377) 0 % BASO FLUID (BEAKER) (test rsbh=289) 1 % CONTAINER BODY FLUID (BEAKER) (test wvhx=3205) EDTA Tube U/S, [id number] 15:56:00Administer 200 mL of albumin 25% (50 grams) IV x1 after paracentesis if 3 or more liters removed.Send ascitic fluid for cell count and differential. Limit of 5 liters to be removed per procedureReason for Exam:->AscitesFINAL REPORT PROCEDURE: Ultrasound-guided paracentesis. INDICATION: Ascites. DESCRIPTION: After obtaining informed written consent, ultrasound scan of the abdomen identified ascites in the right lower quadrant. The overlying skin was prepped and draped in the usual, sterile fashion and local 2% lidocaine anesthesia was administered. A 5 Maldivian catheter was advanced into the peritoneal cavity and 5000 cc of serous fluid was removed. The catheter was removed without immediate complication. Samples were sent for analysis. Albumin given. IMPRESSION:Uncomplicated ultrasound-guided paracentesis with 5000 cc fluid removed. Signed: Chrissy Downs MDReport Verified Date/Time: 11/22/2018 15:56:04 Reading Location: [address] Transitional Reading Room FLUID CELL COUNT WITH [id number] 14:29:00* Test Item Value Reference Range Comments APPEARANCE FLUID (BEAKER) (test sslw=318) Slightly Hazy Clear COLOR FLUID (BEAKER) (test ovif=892) Straw Colorless, Straw RBC FLUID (BEAKER) (test bmrv=852) 119 /cu mm <=1 ADJUSTED WBC FLUID (BEAKER) (test lkmc=9438) 132 /cu mm <=5 LINING CELLS (BEAKER) (test ilni=9390) 1 /cu mm <=1 NEUTROPHILS FLUID (BEAKER) (test nhbb=4566) 2 % LYMPHS FLUID (BEAKER) (test smwj=220) 12 % MONO/MACROPHAGE FLUID (BEAKER) (test hwzw=668) 86 % EOSINOPHILS FLUID (BEAKER) (test kebl=855) 0 % BASO FLUID (BEAKER) (test fuyc=294) 0 % CONTAINER BODY FLUID (BEAKER) (test prsf=0522) EDTA Tube BODY FLUID CULTURE + GRAM [id number] 12:37:00* Test Item Value Reference Range Comments CULTURE (BEAKER) (test ogqc=6026) No growth GRAM STAIN RESULT (BEAKER) (test apmo=1151) <1+ WBCs GRAM STAIN RESULT (BEAKER) (test ngfp=88283) No organisms seen POCT-GLUCOSE [id number] 11:48:00* Test Item Value Reference Range Comments POC-GLUCOSE METER (BEAKER) (test ebjh=6858) 112 mg/dL 70-110 [address]ED AT [address] [address] POCT-GLUCOSE [id number] 07:45:00* Test Item Value Reference Range Comments POC-GLUCOSE METER (BEAKER) (test enbc=2605) 82 mg/dL 70-110 TESTED AT [address] [address] COMPREHENSIVE METABOLIC [id number] 07:36:00* Test Item Value Reference Range Comments TOTAL PROTEIN (BEAKER) (test zycz=282) 5.7 gm/dL 6.0-8.3 ALBUMIN (BEAKER) (test yueg=1295) 3.4 g/dL 3.5-5.0 ALKALINE PHOSPHATASE (BEAKER) (test tsxb=953) 126 U/L 40-150 BILIRUBIN TOTAL (BEAKER) (test qluo=417) 0.6 mg/dL 0.2-1.2 SODIUM (BEAKER) (test hnro=973) 129 meq/L 136-145 POTASSIUM (BEAKER) (test bsdd=356) 4.2 meq/L 3.5-5.1 CHLORIDE (BEAKER) (test olbu=887) 103 meq/L 98-107 CO2 (BEAKER) (test soul=485) 15 meq/L 22-29 BLOOD UREA NITROGEN (BEAKER) (test saxv=398) 86 mg/dL 7-21 CREATININE (BEAKER) (test badp=539) 3.36 mg/dL 0.57-1.25 GLUCOSE RANDOM (BEAKER) (test orsp=640) 79 mg/dL 70-105 CALCIUM (BEAKER) (test vfcu=669) 8.5 mg/dL 8.4-10.2 AST (SGOT) (BEAKER) (test sxsp=584) 17 U/L 5-34 ALT (SGPT) (BEAKER) (test kxdw=266) 12 U/L 6-55 EGFR (BEAKER) (test toxw=9439) 19 mL/min/1.73 sq m ESTIMATED GFR IS NOT ACCURATE CREATININE CLEARANCE IN PREDICTING GLOMERULAR FILTRATION RATE. ESTIMATED GFR IS NOT APPLICABLE FOR DIALYSIS PATIENTS. URIC [id number] 07:25:00* Test Item Value Reference Range Comments URIC ACID (BEAKER) (test okdk=762) 13.0 mg/dL 2.6-7.2 [id number] 07:25:00* Test Item Value Reference Range Comments MAGNESIUM (BEAKER) (test iuqd=597) 2.3 mg/dL 1.6-2.6 [id number] 07:25:00* Test Item Value Reference Range Comments PHOSPHORUS (BEAKER) (test abyb=133) 6.6 mg/dL 2.3-4.7 HEPATIC FUNCTION [id number] 07:25:00* Test Item Value Reference Range Comments TOTAL PROTEIN (BEAKER) (test wnkw=903) 5.7 gm/dL 6.0-8.3 ALBUMIN (BEAKER) (test mmol=0754) 3.4 g/dL 3.5-5.0 BILIRUBIN TOTAL (BEAKER) (test npsu=627) 0.6 mg/dL 0.2-1.2 BILIRUBIN DIRECT (BEAKER) (test uxvh=732) 0.4 mg/dL 0.1-0.5 ALKALINE PHOSPHATASE (BEAKER) (test kaik=846) 126 U/L 40-150 AST (SGOT) (BEAKER) (test xxak=879) 17 U/L 5-34 ALT (SGPT) (BEAKER) (test qhir=298) 12 U/L 6-55 B-TYPE NATRIURETIC FACTOR (BNP)2018-11-21 07:15:00* Test Item Value Reference Range Comments B-TYPE NATRIURETIC PEPTIDE (BEAKER) (test xsjx=437) 277 pg/mL 0-100 CBC W/PLT COUNT & AUTO [id number] 07:10:00* Test Item Value Reference Range Comments WHITE BLOOD CELL COUNT (BEAKER) (test qpjr=302) 2.8 K/ L 3.5-10.5 RED BLOOD CELL COUNT (BEAKER) (test mvht=740) 2.41 M/ L 4.63-6.08 HEMOGLOBIN (BEAKER) (test hkyv=627) 7.1 GM/DL 13.7-17.5 HEMATOCRIT (BEAKER) (test nwor=398) 21.3 % 40.1-51.0 MEAN CORPUSCULAR VOLUME (BEAKER) (test jrme=170) 88.4 fL 79.0-92.2 MEAN CORPUSCULAR HEMOGLOBIN (BEAKER) (test mbqf=431) 29.5 pg 25.7-32.2 MEAN CORPUSCULAR HEMOGLOBIN CONC (BEAKER) (test ukku=733) 33.3 GM/DL 32.3-36.5 RED CELL DISTRIBUTION WIDTH (BEAKER) (test jjni=061) 14.3 % 11.6-14.4 PLATELET COUNT (BEAKER) (test lrad=138) 61 K/CU MM 150-450 MEAN PLATELET VOLUME (BEAKER) (test zwxx=555) 10.9 fL 9.4-12.4 NUCLEATED RED BLOOD CELLS (BEAKER) (test wvhb=907) 0 /100 WBC 0-0 NEUTROPHILS RELATIVE PERCENT (BEAKER) (test vrhi=340) 76 % LYMPHOCYTES RELATIVE PERCENT (BEAKER) (test jyni=997) 10 % MONOCYTES RELATIVE PERCENT (BEAKER) (test hewo=952) 10 % EOSINOPHILS RELATIVE PERCENT (BEAKER) (test knsd=809) 3 % BASOPHILS RELATIVE PERCENT (BEAKER) (test ghpa=363) 1 % NEUTROPHILS ABSOLUTE COUNT (BEAKER) (test qxry=440) 2.10 K/ L 1.78-5.38 LYMPHOCYTES ABSOLUTE COUNT (BEAKER) (test insu=150) 0.28 K/ L 1.32-3.57 MONOCYTES ABSOLUTE COUNT (BEAKER) (test npvz=225) 0.27 K/ L 0.30-0.82 EOSINOPHILS ABSOLUTE COUNT (BEAKER) (test evfp=174) 0.09 K/ L 0.04-0.54 BASOPHILS ABSOLUTE COUNT (BEAKER) (test kunp=445) 0.02 K/ L 0.01-0.08 IMMATURE GRANULOCYTES-RELATIVE PERCENT (BEAKER) (test qutl=5317) 1 % 0-1 PROTHROMBIN [id number] 07:02:00* Test Item Value Reference Range Comments PROTIME (BEAKER) (test sfla=001) 15.3 seconds 11.9-14.2 INR (BEAKER) (test uhcd=979) 1.3 <=5.9 Effective 11/20/2018: PT Reference Range ChangeNew: 11.9-14.2 Previous: 11.7-14. 7RECOMMENDED COUMADIN/WARFARIN INR THERAPY RANGESSTANDARD DOSE: 2.0-3.0 Include s: PROPHYLAXIS for venous thrombosis, systemic embolization; TREATMENT for venou s thrombosis and/or pulmonary embolus.HIGH RISK: Target INR is 2.5-3.5 for patie nts wiht mechanical heart valves.CALCIUM, [id number] 06:43:00* Test Item Value Reference Range Comments CALCIUM IONIZED (BEAKER) (test vqex=958) 0.99 mmol/L 1.12-1.27 PH, BLOOD (BEAKER) (test nnow=0728) 7.45 POCT-GLUCOSE [id number] 21:54:00* Test Item Value Reference Range Comments POC-GLUCOSE METER (BEAKER) (test nlhe=8415) 125 mg/dL 70-110 TESTED AT [place] [id number] [facility] [address] URINALYSIS W/ [id number] 19:48:00* Test Item Value Reference Range Comments COLOR (BEAKER) (test httk=394) Yellow CLARITY (BEAKER) (test iwjs=829) Clear SPECIFIC GRAVITY UA (BEAKER) (test lulx=081) 1.011 1.001-1.035 PH UA (BEAKER) (test rnii=173) 5.5 5.0-8.0 PROTEIN UA (BEAKER) (test cuvk=043) Negative Negative GLUCOSE UA (BEAKER) (test mkwo=592) Negative Negative KETONES UA (BEAKER) (test rxho=111) Negative Negative BILIRUBIN UA (BEAKER) (test xejq=434) Negative Negative BLOOD UA (BEAKER) (test pzwb=518) Negative Negative NITRITE UA (BEAKER) (test jbcz=976) Negative Negative LEUKOCYTE ESTERASE UA (BEAKER) (test thhb=448) Negative Negative UROBILINOGEN UA (BEAKER) (test clci=992) 0.2 mg/dL 0.2-1.0 RBC UA (BEAKER) (test zskc=147) 1 /HPF WBC UA (BEAKER) (test zfct=785) 1 /HPF SOURCE(BEAKER) (test kufy=9991) SODIUM, RANDOM [id number] 19:29:00* Test Item Value Reference Range Comments SODIUM URINE (BEAKER) (test dffh=118) < meq/L Reference Range: No NormalsCREATININE, RANDOM [id number] 19:23:00* Test Item Value Reference Range Comments CREATININE URINE (BEAKER) (test ygrl=712) 68.2 mg/dL Reference Range: No NormalsPOCT-GLUCOSE [id number] 17:52:00* Test Item Value Reference Range Comments POC-GLUCOSE METER (BEAKER) (test lguc=1210) 164 mg/dL 70-110 TESTED AT [place] [address] BLOOD [id number] 14:01:00* Test Item Value Reference Range Comments CULTURE (BEAKER) (test fpsw=9809) No growth in 5 days POCT-GLUCOSE [id number] 12:11:00* Test Item Value Reference Range Comments POC-GLUCOSE METER (BEAKER) (test bosx=2762) 137 mg/dL 70-110 TESTED AT [place] [address] BLOOD [id number] 12:01:00* Test Item Value Reference Range Comments CULTURE (BEAKER) (test gkch=4504) No growth in 5 days POCT-GLUCOSE [id number] 08:13:00* Test Item Value Reference Range Comments POC-GLUCOSE METER (BEAKER) (test pyxt=8118) 137 mg/dL 70-110 TESTED AT [place] [address] BASIC METABOLIC [id number] 06:15:00* Test Item Value Reference Range Comments SODIUM (BEAKER) (test ojgq=938) 129 meq/L 136-145 POTASSIUM (BEAKER) (test kbjp=578) 4.2 meq/L 3.5-5.1 Specimen slightly hemolyzed CHLORIDE (BEAKER) (test yqda=133) 103 meq/L 98-107 CO2 (BEAKER) (test utiv=870) 14 meq/L 22-29 BLOOD UREA NITROGEN (BEAKER) (test vidx=607) 87 mg/dL 7-21 CREATININE (BEAKER) (test lpsi=914) 3.59 mg/dL 0.57-1.25 Specimen slightly hemolyzed GLUCOSE RANDOM (BEAKER) (test fejh=780) 106 mg/dL 70-105 CALCIUM (BEAKER) (test xlko=695) 7.9 mg/dL 8.4-10.2 EGFR (BEAKER) (test tjjk=7838) 18 mL/min/1.73 sq m ESTIMATED GFR IS NOT ACCURATE CREATININE CLEARANCE IN PREDICTING GLOMERULAR FILTRATION RATE. ESTIMATED GFR IS NOT APPLICABLE FOR DIALYSIS PATIENTS. [id number] 06:11:00* Test Item Value Reference Range Comments MAGNESIUM (BEAKER) (test tkbd=446) 2.3 mg/dL 1.6-2.6 Specimen slightly hemolyzed [id number] 06:11:00* Test Item Value Reference Range Comments PHOSPHORUS (BEAKER) (test slnd=404) 7.2 mg/dL 2.3-4.7 Specimen slightly hemolyzed CALCIUM, [id number] 05:53:00* Test Item Value Reference Range Comments CALCIUM IONIZED (BEAKER) (test orpw=857) 1.00 mmol/L 1.12-1.27 PH, BLOOD (BEAKER) (test ubar=2613) 7.47 CBC W/PLT COUNT & AUTO [id number] 05:46:00* Test Item Value Reference Range Comments WHITE BLOOD CELL COUNT (BEAKER) (test ibpv=354) 3.3 K/ L 3.5-10.5 RED BLOOD CELL COUNT (BEAKER) (test jlfy=892) 2.48 M/ L 4.63-6.08 HEMOGLOBIN (BEAKER) (test teuz=050) 7.4 GM/DL 13.7-17.5 HEMATOCRIT (BEAKER) (test bcpv=180) 21.4 % 40.1-51.0 MEAN CORPUSCULAR VOLUME (BEAKER) (test xjhj=835) 86.3 fL 79.0-92.2 MEAN CORPUSCULAR HEMOGLOBIN (BEAKER) (test knqn=063) 29.8 pg 25.7-32.2 MEAN CORPUSCULAR HEMOGLOBIN CONC (BEAKER) (test jinu=888) 34.6 GM/DL 32.3-36.5 RED CELL DISTRIBUTION WIDTH (BEAKER) (test wdji=615) 14.1 % 11.6-14.4 PLATELET COUNT (BEAKER) (test stgh=213) 56 K/CU MM 150-450 MEAN PLATELET VOLUME (BEAKER) (test azki=164) 10.5 fL 9.4-12.4 NUCLEATED RED BLOOD CELLS (BEAKER) (test gect=460) 0 /100 WBC 0-0 NEUTROPHILS RELATIVE PERCENT (BEAKER) (test dyek=317) 77 % LYMPHOCYTES RELATIVE PERCENT (BEAKER) (test wqdn=078) 9 % MONOCYTES RELATIVE PERCENT (BEAKER) (test ldep=300) 10 % EOSINOPHILS RELATIVE PERCENT (BEAKER) (test ybka=296) 3 % BASOPHILS RELATIVE PERCENT (BEAKER) (test zkjg=775) 0 % NEUTROPHILS ABSOLUTE COUNT (BEAKER) (test vibo=916) 2.53 K/ L 1.78-5.38 LYMPHOCYTES ABSOLUTE COUNT (BEAKER) (test rizj=726) 0.30 K/ L 1.32-3.57 MONOCYTES ABSOLUTE COUNT (BEAKER) (test gqfk=122) 0.33 K/ L 0.30-0.82 EOSINOPHILS ABSOLUTE COUNT (BEAKER) (test yzlw=758) 0.09 K/ L 0.04-0.54 BASOPHILS ABSOLUTE COUNT (BEAKER) (test yfej=121) 0.01 K/ L 0.01-0.08 IMMATURE GRANULOCYTES-RELATIVE PERCENT (BEAKER) (test qqjx=1873) 1 % 0-1 POCT-GLUCOSE [id number] 21:48:00* Test Item Value Reference Range Comments POC-GLUCOSE METER (BEAKER) (test ufoa=1239) 138 mg/dL 70-110 TESTED AT [facility] [address] [facility] [address] POCT-GLUCOSE [id number] 18:00:00* Test Item Value Reference Range Comments POC-GLUCOSE METER (BEAKER) (test rzbg=2709) 121 mg/dL 70-110 TESTED AT [place] [id number] [facility] [address] BODY FLUID CELL COUNT WITH [id number] 16:37:00* Test Item Value Reference Range Comments APPEARANCE FLUID (BEAKER) (test lsll=648) Slightly Hazy Clear COLOR FLUID (BEAKER) (test uyku=845) Straw Colorless, Straw RBC FLUID (BEAKER) (test bgfd=190) 120 /cu mm <=1 ADJUSTED WBC FLUID (BEAKER) (test npci=3458) 130 /cu mm <=5 LINING CELLS (BEAKER) (test rrap=3060) 0 /cu mm <=1 NEUTROPHILS FLUID (BEAKER) (test rvoi=7839) 4 % LYMPHS FLUID (BEAKER) (test advk=082) 19 % MONO/MACROPHAGE FLUID (BEAKER) (test jlrx=166) 77 % EOSINOPHILS FLUID (BEAKER) (test pqvq=173) 0 % BASO FLUID (BEAKER) (test rtxx=165) 0 % CONTAINER BODY FLUID (BEAKER) (test chjz=4211) EDTA Tube U/S, [id number] 15:10:00Do not remove more than 5L due to KELSI/CKD. Possible DC today, pending paracentesisReason for exam:->ascites, limit to 5L FINAL REPORT PROCEDURE: Ultrasound-guided paracentesis. I NDICATION: Ascites. DESCRIPTION: After obtaining informed written consent, ultra sound scan of the abdomen identified ascites in the right lower quadrant. The ov erlying skin was prepped and draped in the usual, sterile fashion and local 2% l idocaine anesthesia was administered. A 5 Maldivian catheter was advanced into the peritoneal cavity and 5000 mL of clear yellow fluid was removed. The catheter wa s removed without immediate complication. Samples were sent for analysis. The pr ocedure was performed by Sharon Troy under the direct supervision of Lucina Desouza rn. IMPRESSION: Uncomplicated ultrasound-guided paracentesis with 5000 mL fluid removed. Signed: Lucina Stephens MDReport Verified Date/Time: 11/19/2018 15:10:54 Re ading Location: [facility] Ultrasound Reading Room -GLUCOSE [id number] 12:06:00* Test Item Value Reference Range Comments POC-GLUCOSE METER (BEAKER) (test kglb=[id number]) 97 mg/dL 70-110 TESTED AT [facility] [address] [place] [id number] POCT-GLUCOSE [id number] 07:59:00* Test Item Value Reference Range Comments POC-GLUCOSE METER (BEAKER) (test bmvi=6373) 91 mg/dL 70-110 TESTED AT [facility] [address] [address] CBC W/PLT COUNT & AUTO [id number] 06:47:00* Test Item Value Reference Range Comments WHITE BLOOD CELL COUNT (BEAKER) (test rnvv=705) 4.5 K/ L 3.5-10.5 RED BLOOD CELL COUNT (BEAKER) (test rcqj=869) 2.70 M/ L 4.63-6.08 HEMOGLOBIN (BEAKER) (test dcum=839) 8.1 GM/DL 13.7-17.5 HEMATOCRIT (BEAKER) (test djwk=433) 23.2 % 40.1-51.0 MEAN CORPUSCULAR VOLUME (BEAKER) (test jsxk=612) 85.9 fL 79.0-92.2 MEAN CORPUSCULAR HEMOGLOBIN (BEAKER) (test dizt=229) 30.0 pg 25.7-32.2 MEAN CORPUSCULAR HEMOGLOBIN CONC (BEAKER) (test tpsj=947) 34.9 GM/DL 32.3-36.5 RED CELL DISTRIBUTION WIDTH (BEAKER) (test xdoj=882) 14.2 % 11.6-14.4 PLATELET COUNT (BEAKER) (test cfgk=346) 68 K/CU MM 150-450 MEAN PLATELET VOLUME (BEAKER) (test rqes=605) 11.1 fL 9.4-12.4 NUCLEATED RED BLOOD CELLS (BEAKER) (test fvyh=176) 0 /100 WBC 0-0 NEUTROPHILS RELATIVE PERCENT (BEAKER) (test dgwd=690) 80 % LYMPHOCYTES RELATIVE PERCENT (BEAKER) (test hfdl=014) 7 % MONOCYTES RELATIVE PERCENT (BEAKER) (test dphq=822) 8 % EOSINOPHILS RELATIVE PERCENT (BEAKER) (test zyju=250) 3 % BASOPHILS RELATIVE PERCENT (BEAKER) (test uenm=090) 1 % NEUTROPHILS ABSOLUTE COUNT (BEAKER) (test uxqf=609) 3.60 K/ L 1.78-5.38 LYMPHOCYTES ABSOLUTE COUNT (BEAKER) (test snkq=088) 0.32 K/ L 1.32-3.57 MONOCYTES ABSOLUTE COUNT (BEAKER) (test jddf=946) 0.35 K/ L 0.30-0.82 EOSINOPHILS ABSOLUTE COUNT (BEAKER) (test nlkt=428) 0.14 K/ L 0.04-0.54 BASOPHILS ABSOLUTE COUNT (BEAKER) (test lmzh=215) 0.03 K/ L 0.01-0.08 IMMATURE GRANULOCYTES-RELATIVE PERCENT (BEAKER) (test vczq=7249) 1 % 0-1 CALCIUM, [id number] 06:10:00* Test Item Value Reference Range Comments CALCIUM IONIZED (BEAKER) (test fwmu=088) 1.09 mmol/L 1.12-1.27 PH, BLOOD (BEAKER) (test bjqj=8288) 7.41 POCT-GLUCOSE [id number] 22:13:00* Test Item Value Reference Range Comments POC-GLUCOSE METER (BEAKER) (test ynpk=7451) 145 mg/dL 70-110 TESTED AT [address] [address] OSMOLALITY, [id number] 18:50:00* Test Item Value Reference Range Comments OSMOLALITY URINE (BEAKER) (test gtub=956) 373 mOsm/kg 40-1,400 POCT-GLUCOSE [id number] 17:49:00* Test Item Value Reference Range Comments POC-GLUCOSE METER (BEAKER) (test jmuu=9252) 157 mg/dL 70-110 TESTED AT [address] [address] OSMOLALITY, [id number] 16:32:00* Test Item Value Reference Range Comments OSMOLALITY, SERUM (BEAKER) (test xljc=984) 300 mOsm/kg 275-295 BODY FLUID CULTURE + GRAM [id number] 13:06:00* Test Item Value Reference Range Comments CULTURE (BEAKER) (test qpwj=3449) No growth GRAM STAIN RESULT (BEAKER) (test tdqv=4178) No WBCs GRAM STAIN RESULT (BEAKER) (test cgdf=53733) No organisms seen POCT-GLUCOSE [id number] 12:29:00* Test Item Value Reference Range Comments POC-GLUCOSE METER (BEAKER) (test bupy=2673) 200 mg/dL 70-110 TESTED AT [address] [address] POCT-GLUCOSE [id number] 08:07:00* Test Item Value Reference Range Comments POC-GLUCOSE METER (BEAKER) (test vdff=6536) 144 mg/dL 70-110 TESTED AT [facility] [address] [facility] [address] BASIC METABOLIC [id number] 07:18:00* Test Item Value Reference Range Comments SODIUM (BEAKER) (test wdjo=151) 130 meq/L 136-145 POTASSIUM (BEAKER) (test shpl=492) 3.7 meq/L 3.5-5.1 CHLORIDE (BEAKER) (test sldk=949) 105 meq/L 98-107 CO2 (BEAKER) (test yxxo=257) 15 meq/L 22-29 BLOOD UREA NITROGEN (BEAKER) (test nrgi=329) 79 mg/dL 7-21 CREATININE (BEAKER) (test eykz=403) 3.36 mg/dL 0.57-1.25 GLUCOSE RANDOM (BEAKER) (test svcz=452) 151 mg/dL 70-105 CALCIUM (BEAKER) (test lynz=927) 7.9 mg/dL 8.4-10.2 EGFR (BEAKER) (test ykri=2053) 19 mL/min/1.73 sq m ESTIMATED GFR IS NOT ACCURATE CREATININE CLEARANCE IN PREDICTING GLOMERULAR FILTRATION RATE. ESTIMATED GFR IS NOT APPLICABLE FOR DIALYSIS PATIENTS. [id number] 06:57:00* Test Item Value Reference Range Comments PHOSPHORUS (BEAKER) (test mxzc=286) 6.7 mg/dL 2.3-4.7 [id number] 06:57:00* Test Item Value Reference Range Comments MAGNESIUM (BEAKER) (test kkgt=785) 2.0 mg/dL 1.6-2.6 HEPATIC FUNCTION [id number] 06:57:00* Test Item Value Reference Range Comments TOTAL PROTEIN (BEAKER) (test nzed=964) 5.3 gm/dL 6.0-8.3 ALBUMIN (BEAKER) (test haxs=4791) 2.9 g/dL 3.5-5.0 BILIRUBIN TOTAL (BEAKER) (test pvuy=233) 0.5 mg/dL 0.2-1.2 BILIRUBIN DIRECT (BEAKER) (test htct=682) 0.4 mg/dL 0.1-0.5 ALKALINE PHOSPHATASE (BEAKER) (test gtwl=659) 143 U/L 40-150 AST (SGOT) (BEAKER) (test derd=699) 15 U/L 5-34 ALT (SGPT) (BEAKER) (test aesz=751) 13 U/L 6-55 CBC W/PLT COUNT & AUTO [id number] 06:57:00* Test Item Value Reference Range Comments WHITE BLOOD CELL COUNT (BEAKER) (test fbqm=665) 4.8 K/ L 3.5-10.5 RED BLOOD CELL COUNT (BEAKER) (test smae=007) 2.62 M/ L 4.63-6.08 HEMOGLOBIN (BEAKER) (test bjnf=730) 7.8 GM/DL 13.7-17.5 HEMATOCRIT (BEAKER) (test wrya=909) 22.8 % 40.1-51.0 MEAN CORPUSCULAR VOLUME (BEAKER) (test hqsc=634) 87.0 fL 79.0-92.2 MEAN CORPUSCULAR HEMOGLOBIN (BEAKER) (test ytyu=757) 29.8 pg 25.7-32.2 MEAN CORPUSCULAR HEMOGLOBIN CONC (BEAKER) (test zedi=550) 34.2 GM/DL 32.3-36.5 RED CELL DISTRIBUTION WIDTH (BEAKER) (test wzre=784) 14.2 % 11.6-14.4 PLATELET COUNT (BEAKER) (test oaii=766) 63 K/CU MM 150-450 MEAN PLATELET VOLUME (BEAKER) (test lmpj=914) 10.8 fL 9.4-12.4 NUCLEATED RED BLOOD CELLS (BEAKER) (test eykq=195) 0 /100 WBC 0-0 NEUTROPHILS RELATIVE PERCENT (BEAKER) (test xcgf=368) 83 % LYMPHOCYTES RELATIVE PERCENT (BEAKER) (test kynr=588) 7 % MONOCYTES RELATIVE PERCENT (BEAKER) (test hbxj=877) 7 % EOSINOPHILS RELATIVE PERCENT (BEAKER) (test njjy=671) 2 % BASOPHILS RELATIVE PERCENT (BEAKER) (test snwn=660) 0 % NEUTROPHILS ABSOLUTE COUNT (BEAKER) (test cmwi=661) 3.94 K/ L 1.78-5.38 LYMPHOCYTES ABSOLUTE COUNT (BEAKER) (test gvev=222) 0.33 K/ L 1.32-3.57 MONOCYTES ABSOLUTE COUNT (BEAKER) (test plfw=547) 0.34 K/ L 0.30-0.82 EOSINOPHILS ABSOLUTE COUNT (BEAKER) (test dpwm=940) 0.11 K/ L 0.04-0.54 BASOPHILS ABSOLUTE COUNT (BEAKER) (test ktxz=153) 0.02 K/ L 0.01-0.08 IMMATURE GRANULOCYTES-RELATIVE PERCENT (BEAKER) (test jutu=0488) 1 % 0-1 PROTHROMBIN [id number] 06:38:00* Test Item Value Reference Range Comments PROTIME (BEAKER) (test kkyi=609) 15.7 seconds 11.7-14.7 INR (BEAKER) (test ipzx=881) 1.3 <=5.9 RECOMMENDED COUMADIN/WARFARIN INR THERAPY RANGESSTANDARD DOSE: 2.0 - 3.0 Inclu sun: PROPHYLAXIS for venous thrombosis, systemic embolization; TREATMENT for santo ous thrombosis and/or pulmonary embolus.HIGH RISK: Target INR is 2.5-3.5 for pat ients with mechanical heart valves.CALCIUM, [id number] 06:22:00* Test Item Value Reference Range Comments CALCIUM IONIZED (BEAKER) (test gfeg=701) 0.97 mmol/L 1.12-1.27 PH, BLOOD (BEAKER) (test pbnr=3867) 7.37 OCCULT BLOOD, [id number] 00:02:00* Test Item Value Reference Range Comments FECAL OCCULT BLOOD (BEAKER) (test fnza=282) Positive Negative U/S, RENAL, [id number] 00:01:00Reason for exam:->AKIShould this be performed at the bedside?->YesFINAL REPORT U/S, RENAL, COMPLETE CLINICAL INDICATION: KELSI COMPARISON: Renal ultrasound dated 04/25/2018. TECHNIQUE: The kidneys and urinary bladder were evaluated using real time soni scale and color Doppler sonography. FINDINGS:Right kidney: Size: 11.8 x 7.3 x 6.0 cm. Parenchyma: Normal echogenicity. No cysts. No stones. Hydronephrosis: None. Left kidney: Size: 13.2 x 5.8 x 5.9 cm. Parenchyma: Normal echogenicity. No cysts. No stones. Hydronephrosis: None. Renal Vasculature: Doppler interrogation reveals preserved vascular flow in the main renal arteries and veins bilaterally. Urinary bladder: Unremarkable. Additional findings: Moderate volume intra-abdominal ascites. IMPRESSION: Unremarkable renal ultrasound. Moderate volume intra-abdominal ascites. Signed: Ermelinda Farooq Verified Date/Time: 11/18/2018 00:01:39 Reading Location: [address] Transitional Reading Room -GLUCOSE [id number] 22:40:00* Test Item Value Reference Range Comments POC-GLUCOSE METER (BEAKER) (test efno=9768) 112 mg/dL 70-110 TESTED AT [address] [address] POCT-GLUCOSE [id number] 17:38:00* Test Item Value Reference Range Comments POC-GLUCOSE METER (BEAKER) (test yzcv=1034) 143 mg/dL 70-110 TESTED AT [address] [address] EOSINOPHIL SMEAR, [id number] 14:10:00* Test Item Value Reference Range Comments EOSINOPHIL SMEAR, URINE (BEAKER) (test uuvk=8211) No EOS seen No EOS seen POCT-GLUCOSE [id number] 11:50:00* Test Item Value Reference Range Comments POC-GLUCOSE METER (BEAKER) (test iuzh=3895) 181 mg/dL 70-110 TESTED AT [place] [id number] [facility] [address] POCT-GLUCOSE [id number] 07:29:00* Test Item Value Reference Range Comments POC-GLUCOSE METER (BEAKER) (test brmm=7015) 174 mg/dL 70-110 TESTED AT [address] [address] U/S, ABDOMINAL, [id number] 06:05:00Abdomen limited area? Add comment if clarification is needed.->Right upper quadrantReason for exam:->concern for portal vein thrombus, please get dopplersFINAL REPORT INDICATION: concern for portal vein thrombus, please get dopplers COMPARISON: MRI of the abdomen dated 05/13/2018. TECHNIQUE: Real-time soni-scale transabdominal and color and spectral Doppler ultrasound. FINDINGS: Examination limited by poor acoustic windowing due to moderate volume intra-abdominal ascites.Liver: Coarsened hepatic echotexture with a nodular contour, consistent with cirrhosis. No intrahepatic mass lesion is identified. Again seen is subcapsular fluid collection along the right hepatic lobe with internal septations measuring 13.1 x 5.6 cm. Intrahepatic bile ducts: Normal. C ommon bile duct: 0.6cm. MPV: 1.1cm. Gallbladder: Stones: None. Slud ge: None. Wall thickness: 0.4 cm. Pericholecystic fluid: None. Sono graphic Arceo's sign: No sonographic Arceo's sign. Pancreas: Head and unc inate process: Not well seen secondary to poor acoustic windowing.. Body an d tail: Not well-seen. Spleen: Size: 17.9cm. Echogenicity: Unremarkable. Right kidney: Not well visualized. Ascites: Moderate volume intra-abdominal asc ites.. Regional Vasculature: The visible abdominal aorta, IVC and hepatic veins are patent. The aorta measures 2.6 cm proximally, 2.4 cm in the midportion, dist ally not well seen secondary to poor acoustic windowing. Color and Spectral imag ing:MPV: Diameter: 1.1 Flow: Hepatopedal. Velocity: 18.2 cm/sec Filling defects: NoneLeft and right portal veins: Patent. Flow: Antegrad e Filling defects: None. Hepatic arteries: Patent RI proper hepatic: 0.8 RI right hepatic: 0.8 RI left hepatic: 0.8 IVC, Hepatic venous conf luence, right HV, middle HV and left HV are patent. Additional findings: None. IMPRESSION: Limited examination secondary to moderate volume intra-abdominal asc ites resulting in poor acoustic windowing. Morphologic changes of cirrhosis with sequela of portal hypertension including splenomegaly and moderate volume intra- abdominal ascites. Unchanged subcapsular fluid collection along the right hepat ic lobe. Right kidney is not well evaluated on this examination. Thickening of t he gallbladder wall is nonspecific in the setting of hepatocellular dysfunction. Unremarkable hepatic Doppler. Signed: Ermelinda Farooqort Verified Luis e/Time: 11/17/2018 06:05:35 Reading Location: [facility] C013T Transitional Reading Room /FREE T4 IF [id number] 05:59:00* Test Item Value Reference Range Comments THYROID STIMULATING HORMONE (BEAKER) (test yfyv=336) 1.44 uIU/mL 0.35-4.94 B-TYPE NATRIURETIC FACTOR (BNP)2018-11-17 05:29:00* Test Item Value Reference Range Comments B-TYPE NATRIURETIC PEPTIDE (BEAKER) (test yerd=512) 280 pg/mL 0-100 CALCIUM, [id number] 05:22:00* Test Item Value Reference Range Comments CALCIUM IONIZED (BEAKER) (test twwf=282) 1.03 mmol/L 1.12-1.27 PH, BLOOD (BEAKER) (test npaq=3574) 7.44 BASIC METABOLIC [id number] 05:21:00* Test Item Value Reference Range Comments SODIUM (BEAKER) (test vsgz=870) 131 meq/L 136-145 POTASSIUM (BEAKER) (test hiri=797) 3.4 meq/L 3.5-5.1 CHLORIDE (BEAKER) (test jsao=457) 105 meq/L 98-107 CO2 (BEAKER) (test grzz=555) 15 meq/L 22-29 BLOOD UREA NITROGEN (BEAKER) (test frbp=820) 75 mg/dL 7-21 CREATININE (BEAKER) (test ggtj=094) 3.43 mg/dL 0.57-1.25 GLUCOSE RANDOM (BEAKER) (test ktbm=519) 106 mg/dL 70-105 CALCIUM (BEAKER) (test roal=574) 7.9 mg/dL 8.4-10.2 EGFR (BEAKER) (test vsva=7805) 19 mL/min/1.73 sq m ESTIMATED GFR IS NOT ACCURATE CREATININE CLEARANCE IN PREDICTING GLOMERULAR FILTRATION RATE. ESTIMATED GFR IS NOT APPLICABLE FOR DIALYSIS PATIENTS. URIC [id number] 05:17:00* Test Item Value Reference Range Comments URIC ACID (BEAKER) (test umcp=749) 12.6 mg/dL 2.6-7.2 [id number] 05:17:00* Test Item Value Reference Range Comments MAGNESIUM (BEAKER) (test zpzi=913) 2.2 mg/dL 1.6-2.6 [id number] 05:17:00* Test Item Value Reference Range Comments PHOSPHORUS (BEAKER) (test rvuo=691) 6.9 mg/dL 2.3-4.7 HEPATIC FUNCTION [id number] 05:17:00* Test Item Value Reference Range Comments TOTAL PROTEIN (BEAKER) (test tzfo=425) 5.3 gm/dL 6.0-8.3 ALBUMIN (BEAKER) (test iocp=8975) 3.0 g/dL 3.5-5.0 BILIRUBIN TOTAL (BEAKER) (test mrqy=825) 0.8 mg/dL 0.2-1.2 BILIRUBIN DIRECT (BEAKER) (test xrkm=182) 0.5 mg/dL 0.1-0.5 ALKALINE PHOSPHATASE (BEAKER) (test geuj=165) 134 U/L 40-150 AST (SGOT) (BEAKER) (test udpd=450) 12 U/L 5-34 ALT (SGPT) (BEAKER) (test pwij=064) 11 U/L 6-55 PROTHROMBIN [id number] 05:11:00* Test Item Value Reference Range Comments PROTIME (BEAKER) (test rgym=749) 15.7 seconds 11.7-14.7 INR (BEAKER) (test qidt=559) 1.3 <=5.9 RECOMMENDED COUMADIN/WARFARIN INR THERAPY RANGESSTANDARD DOSE: 2.0 - 3.0 Inclu sun: PROPHYLAXIS for venous thrombosis, systemic embolization; TREATMENT for santo ous thrombosis and/or pulmonary embolus.HIGH RISK: Target INR is 2.5-3.5 for pat ients with mechanical heart valves.CBC W/PLT COUNT & AUTO [id number] 05:06:00* Test Item Value Reference Range Comments WHITE BLOOD CELL COUNT (BEAKER) (test jqxz=407) 3.6 K/ L 3.5-10.5 RED BLOOD CELL COUNT (BEAKER) (test tyqk=109) 2.53 M/ L 4.63-6.08 HEMOGLOBIN (BEAKER) (test xhwx=429) 7.5 GM/DL 13.7-17.5 HEMATOCRIT (BEAKER) (test fvuu=700) 21.9 % 40.1-51.0 MEAN CORPUSCULAR VOLUME (BEAKER) (test hpbn=897) 86.6 fL 79.0-92.2 MEAN CORPUSCULAR HEMOGLOBIN (BEAKER) (test xnbu=753) 29.6 pg 25.7-32.2 MEAN CORPUSCULAR HEMOGLOBIN CONC (BEAKER) (test hgby=048) 34.2 GM/DL 32.3-36.5 RED CELL DISTRIBUTION WIDTH (BEAKER) (test ezer=143) 14.4 % 11.6-14.4 PLATELET COUNT (BEAKER) (test zivt=555) 64 K/CU MM 150-450 MEAN PLATELET VOLUME (BEAKER) (test kxan=367) 10.6 fL 9.4-12.4 NUCLEATED RED BLOOD CELLS (BEAKER) (test hpar=650) 0 /100 WBC 0-0 NEUTROPHILS RELATIVE PERCENT (BEAKER) (test vklt=699) 80 % LYMPHOCYTES RELATIVE PERCENT (BEAKER) (test dqzu=838) 9 % MONOCYTES RELATIVE PERCENT (BEAKER) (test oans=868) 8 % EOSINOPHILS RELATIVE PERCENT (BEAKER) (test cdwc=425) 3 % BASOPHILS RELATIVE PERCENT (BEAKER) (test mxmc=939) 1 % NEUTROPHILS ABSOLUTE COUNT (BEAKER) (test gzfs=593) 2.87 K/ L 1.78-5.38 LYMPHOCYTES ABSOLUTE COUNT (BEAKER) (test zjfn=243) 0.33 K/ L 1.32-3.57 MONOCYTES ABSOLUTE COUNT (BEAKER) (test vwrw=027) 0.27 K/ L 0.30-0.82 EOSINOPHILS ABSOLUTE COUNT (BEAKER) (test rffp=501) 0.11 K/ L 0.04-0.54 BASOPHILS ABSOLUTE COUNT (BEAKER) (test olcp=924) 0.02 K/ L 0.01-0.08 IMMATURE GRANULOCYTES-RELATIVE PERCENT (BEAKER) (test zocj=8123) 0 % 0-1 POCT-GLUCOSE [id number] 22:46:00* Test Item Value Reference Range Comments POC-GLUCOSE METER (BEAKER) (test ijll=5655) 139 mg/dL 70-110 TESTED AT [facility] [address] [facility] [address] URINALYSIS W/ [id number] 22:19:00* Test Item Value Reference Range Comments COLOR (BEAKER) (test vcwt=376) Yellow CLARITY (BEAKER) (test gbex=531) Clear SPECIFIC GRAVITY UA (BEAKER) (test iqvt=455) 1.011 1.001-1.035 PH UA (BEAKER) (test upxy=769) 5.0 5.0-8.0 PROTEIN UA (BEAKER) (test qmef=093) Negative Negative GLUCOSE UA (BEAKER) (test gytx=416) Negative Negative KETONES UA (BEAKER) (test unuu=050) Negative Negative BILIRUBIN UA (BEAKER) (test bexf=511) Negative Negative BLOOD UA (BEAKER) (test qcho=044) Negative Negative NITRITE UA (BEAKER) (test fdjg=900) Negative Negative LEUKOCYTE ESTERASE UA (BEAKER) (test mutx=106) Negative Negative UROBILINOGEN UA (BEAKER) (test rfgd=976) 0.2 mg/dL 0.2-1.0 RBC UA (BEAKER) (test bzgb=573) < /HPF WBC UA (BEAKER) (test ndvx=358) 1 /HPF HYALINE CASTS (BEAKER) (test jpof=341) 3 /LPF SOURCE(BEAKER) (test lvso=1727) Urine, Clean Catch POCT-GLUCOSE [id number] 17:50:00* Test Item Value Reference Range Comments POC-GLUCOSE METER (BEAKER) (test qkjp=9818) 162 mg/dL 70-110 TESTED AT [place] [id number] POCT-GLUCOSE [id number] 12:17:00* Test Item Value Reference Range Comments POC-GLUCOSE METER (BEAKER) (test jkfm=5214) 198 mg/dL 70-110 TESTED AT [address] [address] HEMOGLOBIN AND [id number] 11:43:00* Test Item Value Reference Range Comments HEMOGLOBIN (BEAKER) (test wsis=816) 6.9 GM/DL 13.7-17.5 HEMATOCRIT (BEAKER) (test yqtu=012) 20.0 % 40.1-51.0 POCT-GLUCOSE [id number] 08:09:00* Test Item Value Reference Range Comments POC-GLUCOSE METER (BEAKER) (test cvtc=3493) 131 mg/dL 70-110 TESTED AT [address] [address] BASIC METABOLIC [id number] 07:28:00* Test Item Value Reference Range Comments SODIUM (BEAKER) (test tisf=257) 131 meq/L 136-145 POTASSIUM (BEAKER) (test xbyp=274) 3.2 meq/L 3.5-5.1 CHLORIDE (BEAKER) (test jdzl=224) 105 meq/L 98-107 CO2 (BEAKER) (test wskv=561) 17 meq/L 22-29 BLOOD UREA NITROGEN (BEAKER) (test hedn=843) 73 mg/dL 7-21 CREATININE (BEAKER) (test gpio=369) 3.08 mg/dL 0.57-1.25 GLUCOSE RANDOM (BEAKER) (test fjin=895) 93 mg/dL 70-105 CALCIUM (BEAKER) (test cdrc=275) 7.8 mg/dL 8.4-10.2 EGFR (BEAKER) (test bnls=6098) 22 mL/min/1.73 sq m ESTIMATED GFR IS NOT ACCURATE CREATININE CLEARANCE IN PREDICTING GLOMERULAR FILTRATION RATE. ESTIMATED GFR IS NOT APPLICABLE FOR DIALYSIS PATIENTS. HEPATIC FUNCTION [id number] 07:25:00* Test Item Value Reference Range Comments TOTAL PROTEIN (BEAKER) (test hamk=220) 5.0 gm/dL 6.0-8.3 ALBUMIN (BEAKER) (test ukrt=1413) 2.8 g/dL 3.5-5.0 BILIRUBIN TOTAL (BEAKER) (test zyrv=519) 0.6 mg/dL 0.2-1.2 BILIRUBIN DIRECT (BEAKER) (test axke=704) 0.4 mg/dL 0.1-0.5 ALKALINE PHOSPHATASE (BEAKER) (test oyds=708) 138 U/L 40-150 AST (SGOT) (BEAKER) (test rcek=204) 13 U/L 5-34 ALT (SGPT) (BEAKER) (test qxsc=016) 11 U/L 6-55 CBC W/PLT COUNT & AUTO [id number] 07:18:00* Test Item Value Reference Range Comments WHITE BLOOD CELL COUNT (BEAKER) (test jjif=768) 3.0 K/ L 3.5-10.5 RED BLOOD CELL COUNT (BEAKER) (test uovs=767) 2.28 M/ L 4.63-6.08 HEMOGLOBIN (BEAKER) (test mbiz=153) 6.7 GM/DL 13.7-17.5 HEMATOCRIT (BEAKER) (test advq=465) 20.4 % 40.1-51.0 MEAN CORPUSCULAR VOLUME (BEAKER) (test fezf=220) 89.5 fL 79.0-92.2 MEAN CORPUSCULAR HEMOGLOBIN (BEAKER) (test mnqs=400) 29.4 pg 25.7-32.2 MEAN CORPUSCULAR HEMOGLOBIN CONC (BEAKER) (test xfkl=232) 32.8 GM/DL 32.3-36.5 RED CELL DISTRIBUTION WIDTH (BEAKER) (test grrh=562) 14.0 % 11.6-14.4 PLATELET COUNT (BEAKER) (test lngn=542) 64 K/CU MM 150-450 MEAN PLATELET VOLUME (BEAKER) (test wemh=118) 10.9 fL 9.4-12.4 NUCLEATED RED BLOOD CELLS (BEAKER) (test ggus=806) 0 /100 WBC 0-0 NEUTROPHILS RELATIVE PERCENT (BEAKER) (test aduj=888) 75 % LYMPHOCYTES RELATIVE PERCENT (BEAKER) (test xhfe=630) 11 % MONOCYTES RELATIVE PERCENT (BEAKER) (test pcme=008) 8 % EOSINOPHILS RELATIVE PERCENT (BEAKER) (test axsx=727) 5 % BASOPHILS RELATIVE PERCENT (BEAKER) (test krhe=010) 1 % NEUTROPHILS ABSOLUTE COUNT (BEAKER) (test ggnh=848) 2.27 K/ L 1.78-5.38 LYMPHOCYTES ABSOLUTE COUNT (BEAKER) (test vvcy=732) 0.32 K/ L 1.32-3.57 MONOCYTES ABSOLUTE COUNT (BEAKER) (test dfwb=286) 0.25 K/ L 0.30-0.82 EOSINOPHILS ABSOLUTE COUNT (BEAKER) (test bhyl=250) 0.15 K/ L 0.04-0.54 BASOPHILS ABSOLUTE COUNT (BEAKER) (test kvcn=868) 0.02 K/ L 0.01-0.08 IMMATURE GRANULOCYTES-RELATIVE PERCENT (BEAKER) (test ofet=9030) 0 % 0-1 PROTHROMBIN [id number] 07:05:00* Test Item Value Reference Range Comments PROTIME (BEAKER) (test wldr=724) 16.4 seconds 11.7-14.7 INR (BEAKER) (test mudt=460) 1.4 <=5.9 RECOMMENDED COUMADIN/WARFARIN INR THERAPY RANGESSTANDARD DOSE: 2.0 - 3.0 Inclu sun: PROPHYLAXIS for venous thrombosis, systemic embolization; TREATMENT for santo ous thrombosis and/or pulmonary embolus.HIGH RISK: Target INR is 2.5-3.5 for pat ients with mechanical heart valves.POCT-GLUCOSE [id number] 22:10:00* Test Item Value Reference Range Comments POC-GLUCOSE METER (BEAKER) (test adau=3130) 97 mg/dL 70-110 TESTED AT [facility] [address] [address] [address] BODY FLUID CELL COUNT WITH [id number] 16:49:00* Test Item Value Reference Range Comments APPEARANCE FLUID (BEAKER) (test cwvd=863) Slightly Hazy Clear COLOR FLUID (BEAKER) (test tump=399) Straw Colorless, Straw RBC FLUID (BEAKER) (test phyq=641) 50 /cu mm <=1 ADJUSTED WBC FLUID (BEAKER) (test giva=9601) 90 /cu mm <=5 LINING CELLS (BEAKER) (test wdzm=1438) 0 /cu mm <=1 NEUTROPHILS FLUID (BEAKER) (test npdk=4214) 5 % LYMPHS FLUID (BEAKER) (test nsik=672) 17 % MONO/MACROPHAGE FLUID (BEAKER) (test bjci=772) 78 % EOSINOPHILS FLUID (BEAKER) (test muic=562) 0 % BASO FLUID (BEAKER) (test zunz=238) 0 % CONTAINER BODY FLUID (BEAKER) (test uqjj=9208) EDTA Tube U/S, [id number] 16:20:00Reason for exam:->ASCITES, requiring PARA FINAL REPORT Paracentesis dated 11/15/2018 Procedure: Ult rasound-guided paracentesis. Preprocedure diagnosis: Ascites Postprocedure diagn osis: Ascites Conscious sedation: None. Radiologist: Oli Engel M.D. [employer] Former Automatic: None Anesthesia: 1% Xylocaine mixed with sodium bicarbonate local anesthesia. T echnique: After obtaining informed consent, ultrasound-guided paracentesis was performed under usual sterile technique. Using a 5 lao drainage catheter, pun cture was made in the right lower quadrant abdomen. Approximately 5000 cc of sid udy yellowish fluid was removed. Patient tolerated the procedure well without co mplication. Complication: None Graft/Implant: None Estimated Blood Loss: None Im pression: Ultrasound-guided paracentesis. Signed: Oli Engel MDReport Verified Date/Time: 11/15/2018 16:20:48 Reading Location: [facility] [id number] Ultrasound Readin g Room -GLUCOSE [id number] 16:19:00* Test Item Value Reference Range Comments POC-GLUCOSE METER (BEAKER) (test endi=9469) 105 mg/dL 70-110 TESTED AT [facility] [address] [address] PROTHROMBIN TIME/[id number] 10:57:00* Test Item Value Reference Range Comments PROTIME (BEAKER) (test vuwk=570) 15.2 seconds 11.7-14.7 INR (BEAKER) (test obop=097) 1.3 <=5.9 RECOMMENDED COUMADIN/WARFARIN INR THERAPY RANGESSTANDARD DOSE: 2.0 - 3.0 Inclu sun: PROPHYLAXIS for venous thrombosis, systemic embolization; TREATMENT for santo ous thrombosis and/or pulmonary embolus.HIGH RISK: Target INR is 2.5-3.5 for pat ients with mechanical heart valves.BASIC METABOLIC [id number] 09:04:00* Test Item Value Reference Range Comments SODIUM (BEAKER) (test fnzb=967) 132 meq/L 136-145 POTASSIUM (BEAKER) (test nfsb=838) 3.0 meq/L 3.5-5.1 CHLORIDE (BEAKER) (test ymiq=212) 104 meq/L 98-107 CO2 (BEAKER) (test rzzp=771) 18 meq/L 22-29 BLOOD UREA NITROGEN (BEAKER) (test fdzg=489) 73 mg/dL 7-21 CREATININE (BEAKER) (test hras=563) 3.32 mg/dL 0.57-1.25 GLUCOSE RANDOM (BEAKER) (test xbui=057) 184 mg/dL 70-105 CALCIUM (BEAKER) (test lnip=302) 7.9 mg/dL 8.4-10.2 EGFR (BEAKER) (test evzb=7271) 20 mL/min/1.73 sq m ESTIMATED GFR IS NOT ACCURATE CREATININE CLEARANCE IN PREDICTING GLOMERULAR FILTRATION RATE. ESTIMATED GFR IS NOT APPLICABLE FOR DIALYSIS PATIENTS. LACTIC ACID, [id number] 08:48:00* Test Item Value Reference Range Comments LACTATE BLOOD VENOUS (2) (BEAKER) (test enqh=7340) 1.3 mmol/L 0.5-2.2 HEPATIC FUNCTION [id number] 08:47:00* Test Item Value Reference Range Comments TOTAL PROTEIN (BEAKER) (test urbj=603) 6.2 gm/dL 6.0-8.3 ALBUMIN (BEAKER) (test nkwm=7767) 2.9 g/dL 3.5-5.0 BILIRUBIN TOTAL (BEAKER) (test kkzk=799) 0.9 mg/dL 0.2-1.2 BILIRUBIN DIRECT (BEAKER) (test zhcj=461) 0.5 mg/dL 0.1-0.5 ALKALINE PHOSPHATASE (BEAKER) (test hmou=796) 208 U/L 40-150 AST (SGOT) (BEAKER) (test hpmp=216) 15 U/L 5-34 ALT (SGPT) (BEAKER) (test wxjj=205) 16 U/L 6-55 CBC W/PLT COUNT & AUTO [id number] 08:39:00* Test Item Value Reference Range Comments WHITE BLOOD CELL COUNT (BEAKER) (test nxbh=962) 5.9 K/ L 3.5-10.5 RED BLOOD CELL COUNT (BEAKER) (test lxne=813) 2.88 M/ L 4.63-6.08 HEMOGLOBIN (BEAKER) (test jtnh=275) 8.6 GM/DL 13.7-17.5 HEMATOCRIT (BEAKER) (test ajyt=267) 25.9 % 40.1-51.0 MEAN CORPUSCULAR VOLUME (BEAKER) (test fjjv=326) 89.9 fL 79.0-92.2 MEAN CORPUSCULAR HEMOGLOBIN (BEAKER) (test ujks=294) 29.9 pg 25.7-32.2 MEAN CORPUSCULAR HEMOGLOBIN CONC (BEAKER) (test zxpz=982) 33.2 GM/DL 32.3-36.5 RED CELL DISTRIBUTION WIDTH (BEAKER) (test pvgp=576) 14.1 % 11.6-14.4 PLATELET COUNT (BEAKER) (test nceh=922) 99 K/CU MM 150-450 MEAN PLATELET VOLUME (BEAKER) (test sfyd=341) 10.7 fL 9.4-12.4 NUCLEATED RED BLOOD CELLS (BEAKER) (test oxtg=531) 0 /100 WBC 0-0 NEUTROPHILS RELATIVE PERCENT (BEAKER) (test bubt=890) 82 % LYMPHOCYTES RELATIVE PERCENT (BEAKER) (test nyog=096) 6 % MONOCYTES RELATIVE PERCENT (BEAKER) (test deyw=463) 8 % EOSINOPHILS RELATIVE PERCENT (BEAKER) (test bixv=142) 3 % BASOPHILS RELATIVE PERCENT (BEAKER) (test tdjw=867) 1 % NEUTROPHILS ABSOLUTE COUNT (BEAKER) (test yilk=615) 4.88 K/ L 1.78-5.38 LYMPHOCYTES ABSOLUTE COUNT (BEAKER) (test ikmd=534) 0.34 K/ L 1.32-3.57 MONOCYTES ABSOLUTE COUNT (BEAKER) (test jbev=283) 0.46 K/ L 0.30-0.82 EOSINOPHILS ABSOLUTE COUNT (BEAKER) (test cnqk=998) 0.16 K/ L 0.04-0.54 BASOPHILS ABSOLUTE COUNT (BEAKER) (test gvxi=894) 0.04 K/ L 0.01-0.08 IMMATURE GRANULOCYTES-RELATIVE PERCENT (BEAKER) (test fdqd=6139) 1 % 0-1 U/S, [id number] 17:55:00Administer 200 mL of albumin 25% (50 grams) IV x1 after paracentesis if 3 or more liters removed.Send ascitic fluid for cell count and differential. Limit of 5 liters to be removed per procedureReason for Exam:->AscitesFINAL REPORT PROCEDURE: Ultrasound-guided paracentesis. INDICATION: Ascites. DESCRIPTION: After obtaining informed written consent, ultrasound scan of the abdomen identified ascites in the right lower quadrant. The overlying skin was prepped and draped in the usual, sterile fashion and local 2% lidocaine anesthesia was administered. A 5 Maldivian catheter was advanced into the peritoneal cavity and 5000 cc of serous fluid was removed. The catheter was removed without immediate complication. Samples were sent for analysis. Albumin given. IMPRESSION:Uncomplicated ultrasound-guided paracentesis with 5000 cc fluid removed. Signed: Glenny Moraleseport Verified Date/Time: 11/11/2018 17:55:17 Reading Location: [address] Reading Room FLUID CELL COUNT WITH [id number] 13:42:00* Test Item Value Reference Range Comments APPEARANCE FLUID (BEAKER) (test adll=420) Cloudy Clear COLOR FLUID (BEAKER) (test qqgj=212) Yellow Colorless, Straw RBC FLUID (BEAKER) (test yloc=369) 125 /cu mm <=1 ADJUSTED WBC FLUID (BEAKER) (test cnpc=8761) 81 /cu mm <=5 LINING CELLS (BEAKER) (test dnym=0274) 5 /cu mm <=1 NEUTROPHILS FLUID (BEAKER) (test vapb=3783) 5 % LYMPHS FLUID (BEAKER) (test yrtd=109) 10 % MONO/MACROPHAGE FLUID (BEAKER) (test kyam=918) 79 % EOSINOPHILS FLUID (BEAKER) (test teoq=257) 0 % BASO FLUID (BEAKER) (test tabo=283) 0 % CONTAINER BODY FLUID (BEAKER) (test ltby=5526) Sterile Cup BODY FLUID CELL COUNT WITH [id number] 12:22:00* Test Item Value Reference Range Comments APPEARANCE FLUID (BEAKER) (test hvve=666) Hazy Clear COLOR FLUID (BEAKER) (test jzch=139) Yellow Colorless, Straw RBC FLUID (BEAKER) (test azes=122) 80 /cu mm <=1 ADJUSTED WBC FLUID (BEAKER) (test hqhc=9060) 105 /cu mm <=5 LINING CELLS (BEAKER) (test blom=1336) 2 /cu mm <=1 NEUTROPHILS FLUID (BEAKER) (test zbzz=1785) 4 % LYMPHS FLUID (BEAKER) (test ytdf=845) 23 % MONO/MACROPHAGE FLUID (BEAKER) (test chpx=126) 73 % EOSINOPHILS FLUID (BEAKER) (test vaet=930) 0 % BASO FLUID (BEAKER) (test ayur=359) 0 % CONTAINER BODY FLUID (BEAKER) (test rnna=0235) EDTA Tube U/S, [id number] 11:20:00LIMIT PARACENTESIS to 5 LITERSAdminister 200 mL of albumin 25% (50 grams) IV x1 after paracentesis if 3 or more liters removed.Send ascitic fluid for cell count and differential.Reason for Exam:-> cirrhosis,ascitisFINAL REPORT Exam: Ultrasound guided paracentesis Clinical History: Ascites Consent: Benefits and risks were explained to the patient who gave consent to the procedure. Complication: None immediate Procedure: The right lower quadrant was prepped and draped in usual sterile fashion. 1% lidocaine was used as the anesthetic. Under ultrasound guidance, a paracentesis catheter was inserted into the peritoneal cavity. Approximately 5000 cc of cloudy yellow ascitic fluid was aspirated. The catheter was removed. Hemostasis was achieved. The patient tolerated the procedure well without any adverse reactions and left the ultrasound department in stable condition. Impression: Ultrasound guided paracentesis as described. Procedure was performed by Anabel Thornton PA-C under direct supervision of Dr. Kelly Signed: Timothy Kelly Verified Date/Time: 11/08/2018 11:20:31 Reading Location: [address] Ultrasound Reading Room U/S, [id number] 14:28:00Reason for exam:->ASCITESFINAL REPORT Exam: Ultrasound guided paracentesis Clinical History: Ascites Consent: Benefits and risks were explained to the patient who gave consent to the procedure. Complication: None immediate Procedure: The right lower quadrant was prepped and draped in usual sterile fashion. 1% lidocaine was used as the anesthetic. Under ultrasound guidance, a paracentesis catheter was inserted into the peritoneal cavity. Approximately 58957 cc of cloudy yellow ascitic fluid was aspirated. The catheter was removed. Hemostasis was achieved. The patient tolerated the procedure well without any adverse reactions and left the ultrasound department in stable condition. Impression: Ultrasound guided paracentesis as described. Procedure was performed by Sharon Troy PA-C und er direct supervision of Dr. Jules Cornell Signed: Jules Cornell Verified Date/[place] e: 11/07/2018 14:28:55 Reading Location: [address] Ultrasound Reading Room C METABOLIC [id number] 09:46:00* Test Item Value Reference Range Comments SODIUM (BEAKER) (test jzxq=640) 133 meq/L 136-145 POTASSIUM (BEAKER) (test yuzk=326) 4.2 meq/L 3.5-5.1 CHLORIDE (BEAKER) (test wqdw=396) 106 meq/L 98-107 CO2 (BEAKER) (test zugf=062) 18 meq/L 22-29 BLOOD UREA NITROGEN (BEAKER) (test zage=230) 66 mg/dL 7-21 CREATININE (BEAKER) (test kjxf=317) 2.79 mg/dL 0.57-1.25 GLUCOSE RANDOM (BEAKER) (test spew=184) 120 mg/dL 70-105 CALCIUM (BEAKER) (test tbys=629) 8.0 mg/dL 8.4-10.2 EGFR (BEAKER) (test deez=5742) 24 mL/min/1.73 sq m ESTIMATED GFR IS NOT ACCURATE CREATININE CLEARANCE IN PREDICTING GLOMERULAR FILTRATION RATE. ESTIMATED GFR IS NOT APPLICABLE FOR DIALYSIS PATIENTS. HEPATIC FUNCTION [id number] 09:35:00* Test Item Value Reference Range Comments TOTAL PROTEIN (BEAKER) (test yaov=936) 6.2 gm/dL 6.0-8.3 ALBUMIN (BEAKER) (test ctpd=2813) 2.7 g/dL 3.5-5.0 BILIRUBIN TOTAL (BEAKER) (test oswp=696) 0.8 mg/dL 0.2-1.2 BILIRUBIN DIRECT (BEAKER) (test zqkh=168) 0.5 mg/dL 0.1-0.5 ALKALINE PHOSPHATASE (BEAKER) (test tgdz=385) 182 U/L 40-150 AST (SGOT) (BEAKER) (test cwnh=139) 17 U/L 5-34 ALT (SGPT) (BEAKER) (test odpk=510) 18 U/L 6-55 [id number] 09:35:00* Test Item Value Reference Range Comments PARTIAL THROMBOPLASTIN TIME (BEAKER) (test sqzu=389) 35.4 seconds 22.5-36.0 PROTHROMBIN TIME/[id number] 09:34:00* Test Item Value Reference Range Comments PROTIME (BEAKER) (test inip=170) 15.0 seconds 11.7-14.7 INR (BEAKER) (test opis=634) 1.2 <=5.9 RECOMMENDED COUMADIN/WARFARIN INR THERAPY RANGESSTANDARD DOSE: 2.0 - 3.0 Inclu sun: PROPHYLAXIS for venous thrombosis, systemic embolization; TREATMENT for santo ous thrombosis and/or pulmonary embolus.HIGH RISK: Target INR is 2.5-3.5 for pat ients with mechanical heart valves.CBC (HEMOGRAM ONLY)2018-11-04 09:18:00* Test Item Value Reference Range Comments WHITE BLOOD CELL COUNT (BEAKER) (test vott=966) 4.9 K/ L 3.5-10.5 RED BLOOD CELL COUNT (BEAKER) (test kauw=347) 2.87 M/ L 4.63-6.08 HEMOGLOBIN (BEAKER) (test qzzg=099) 8.6 GM/DL 13.7-17.5 HEMATOCRIT (BEAKER) (test oreh=342) 26.0 % 40.1-51.0 MEAN CORPUSCULAR VOLUME (BEAKER) (test mlgi=510) 90.6 fL 79.0-92.2 MEAN CORPUSCULAR HEMOGLOBIN (BEAKER) (test whgu=373) 30.0 pg 25.7-32.2 MEAN CORPUSCULAR HEMOGLOBIN CONC (BEAKER) (test vxhm=923) 33.1 GM/DL 32.3-36.5 RED CELL DISTRIBUTION WIDTH (BEAKER) (test qips=239) 13.4 % 11.6-14.4 PLATELET COUNT (BEAKER) (test zdxp=654) 87 K/CU MM 150-450 MEAN PLATELET VOLUME (BEAKER) (test mbwv=081) 9.8 fL 9.4-12.4 NUCLEATED RED BLOOD CELLS (BEAKER) (test dhdm=486) 0 /100 WBC 0-0 BODY FLUID CULTURE + GRAM [id number] 12:46:00* Test Item Value Reference Range Comments CULTURE (BEAKER) (test elen=6531) No growth GRAM STAIN RESULT (BEAKER) (test kdya=9431) 1+ WBCs GRAM STAIN RESULT (BEAKER) (test scvo=90933) <1+ gram positive cocci in clusters BODY FLUID CELL COUNT WITH [id number] 15:16:00* Test Item Value Reference Range Comments APPEARANCE FLUID (BEAKER) (test xrna=387) Slightly Hazy Clear COLOR FLUID (BEAKER) (test uble=323) Straw Colorless, Straw RBC FLUID (BEAKER) (test gnsh=783) 83 /cu mm <=1 ADJUSTED WBC FLUID (BEAKER) (test crug=1055) 50 /cu mm <=5 LINING CELLS (BEAKER) (test svuv=5130) 0 /cu mm <=1 NEUTROPHILS FLUID (BEAKER) (test udok=7164) 5 % LYMPHS FLUID (BEAKER) (test athb=289) 22 % MONO/MACROPHAGE FLUID (BEAKER) (test mhbg=830) 73 % EOSINOPHILS FLUID (BEAKER) (test rcbd=923) 0 % BASO FLUID (BEAKER) (test nzmy=746) 0 % CONTAINER BODY FLUID (BEAKER) (test byaz=1993) EDTA Tube U/S, [id number] 15:00:00Reason for exam:->ABDOMINAL PAINReason for exam:->ASCITESFINAL REPORT PROCEDURE: Ultrasound-guided paracentesis. INDICATION: Ascites. DESCRIPTION: After obtaining informed written consent, ultrasound scan of the abdomen identified ascites in the right lower quadrant. The overlying skin was prepped and draped in the usual, sterile fashion and local 2% lidocaine anesthesia was administered. A 5 Maldivian catheter was advanced into the peritoneal cavity and 16,000 cc of serous fluid was removed. The catheter was removed without immediate complication. Samples were sent for analysis. IMPRESSION:Uncomplicated ultrasound-guided paracentesis with 16,000 cc fluid removed. Signed: Joselin Hutson Verified Date/Time: 10/22/2018 15:00:56 Reading Location: [facility] C0[facility] Transitional Reading Room C METABOLIC [id number] 10:17:00* Test Item Value Reference Range Comments SODIUM (BEAKER) (test rfub=789) 133 meq/L 136-145 POTASSIUM (BEAKER) (test kuxj=483) 4.8 meq/L 3.5-5.1 CHLORIDE (BEAKER) (test uzuq=882) 107 meq/L 98-107 CO2 (BEAKER) (test ulho=657) 21 meq/L 22-29 BLOOD UREA NITROGEN (BEAKER) (test ldzt=789) 56 mg/dL 7-21 CREATININE (BEAKER) (test gnqu=849) 2.50 mg/dL 0.57-1.25 GLUCOSE RANDOM (BEAKER) (test naae=494) 159 mg/dL 70-105 CALCIUM (BEAKER) (test rufh=576) 8.4 mg/dL 8.4-10.2 EGFR (BEAKER) (test mkni=4145) 27 mL/min/1.73 sq m ESTIMATED GFR IS NOT ACCURATE CREATININE CLEARANCE IN PREDICTING GLOMERULAR FILTRATION RATE. ESTIMATED GFR IS NOT APPLICABLE FOR DIALYSIS PATIENTS. HEPATIC FUNCTION [id number] 10:14:00* Test Item Value Reference Range Comments TOTAL PROTEIN (BEAKER) (test xwau=768) 6.4 gm/dL 6.0-8.3 ALBUMIN (BEAKER) (test xxyo=2734) 2.9 g/dL 3.5-5.0 BILIRUBIN TOTAL (BEAKER) (test avsw=102) 0.8 mg/dL 0.2-1.2 BILIRUBIN DIRECT (BEAKER) (test evuv=784) 0.6 mg/dL 0.1-0.5 ALKALINE PHOSPHATASE (BEAKER) (test oofi=630) 234 U/L 40-150 AST (SGOT) (BEAKER) (test rudw=021) 21 U/L 5-34 ALT (SGPT) (BEAKER) (test jzpz=909) 20 U/L 6-55 [id number] 09:58:00* Test Item Value Reference Range Comments PROTIME (BEAKER) (test yslb=447) 14.7 seconds 11.7-14.7 INR (BEAKER) (test wadq=171) 1.2 <=5.9 PARTIAL THROMBOPLASTIN TIME (BEAKER) (test ezzo=133) 31.0 seconds 22.5-36.0 RECOMMENDED COUMADIN/WARFARIN INR THERAPY RANGESSTANDARD DOSE: 2.0 - 3.0 Inclu sun: PROPHYLAXIS for venous thrombosis, systemic embolization; TREATMENT for santo ous thrombosis and/or pulmonary embolus.HIGH RISK: Target INR is 2.5-3.5 for pat ients with mechanical heart valves.CBC W/PLT COUNT & AUTO [id number] 09:52:00* Test Item Value Reference Range Comments WHITE BLOOD CELL COUNT (BEAKER) (test jwvx=262) 5.1 K/ L 3.5-10.5 RED BLOOD CELL COUNT (BEAKER) (test rlyd=866) 2.97 M/ L 4.63-6.08 HEMOGLOBIN (BEAKER) (test bryf=320) 8.9 GM/DL 13.7-17.5 HEMATOCRIT (BEAKER) (test qhty=162) 27.7 % 40.1-51.0 MEAN CORPUSCULAR VOLUME (BEAKER) (test mlbh=318) 93.3 fL 79.0-92.2 MEAN CORPUSCULAR HEMOGLOBIN (BEAKER) (test xkgp=774) 30.0 pg 25.7-32.2 MEAN CORPUSCULAR HEMOGLOBIN CONC (BEAKER) (test rfvt=956) 32.1 GM/DL 32.3-36.5 RED CELL DISTRIBUTION WIDTH (BEAKER) (test qkex=861) 14.0 % 11.6-14.4 PLATELET COUNT (BEAKER) (test aoou=840) 91 K/CU MM 150-450 MEAN PLATELET VOLUME (BEAKER) (test smhl=479) 10.1 fL 9.4-12.4 NUCLEATED RED BLOOD CELLS (BEAKER) (test kbox=328) 0 /100 WBC 0-0 NEUTROPHILS RELATIVE PERCENT (BEAKER) (test unrd=198) 84 % LYMPHOCYTES RELATIVE PERCENT (BEAKER) (test qyhz=200) 6 % MONOCYTES RELATIVE PERCENT (BEAKER) (test rvgv=360) 6 % EOSINOPHILS RELATIVE PERCENT (BEAKER) (test pimz=011) 2 % BASOPHILS RELATIVE PERCENT (BEAKER) (test qmjc=847) 1 % NEUTROPHILS ABSOLUTE COUNT (BEAKER) (test tlwg=567) 4.30 K/ L 1.78-5.38 LYMPHOCYTES ABSOLUTE COUNT (BEAKER) (test qmti=610) 0.32 K/ L 1.32-3.57 MONOCYTES ABSOLUTE COUNT (BEAKER) (test bago=019) 0.30 K/ L 0.30-0.82 EOSINOPHILS ABSOLUTE COUNT (BEAKER) (test axxb=777) 0.11 K/ L 0.04-0.54 BASOPHILS ABSOLUTE COUNT (BEAKER) (test zxak=045) 0.03 K/ L 0.01-0.08 IMMATURE GRANULOCYTES-RELATIVE PERCENT (BEAKER) (test pxhp=1844) 1 % 0-1 U/S, [id number] 17:34:00LIMIT PARACENTESIS to 5 LITERSAdminister 200 mL of albumin 25% (50 grams) IV x1 after paracentesis if 3 or more liters removed.Send ascitic fluid for cell count and differential.Reason for Exam:-> cirrhosis,ascitisFINAL REPORT PROCEDURE: Ultrasound- guided paracentesis. INDICATION: Ascites. DESCRIPTION: After obtaining informed written consent, ultrasound scan of the abdomen identified ascites in the right lower quadrant. The overlying skin was prepped and draped in the usual, sterile fashion and local 2% lidocaine anesthesia was administered. A 5 Maldivian catheter was advanced into the peritoneal cavity and 5000 mL of clear yellow fluid was removed. The catheter was removed without immediate complication. Samples were sent for analysis. IMPRESSION:Uncomplicated ultrasound-guided paracentesis with 5000 mL fluid removed. Signed: Lucina Stephens MDReport Verified Date/Time: 10/16/2018 17:34:15 Reading Location: [address] Ultrasound Reading Room FLUID CELL COUNT WITH [id number] 17:30:00* Test Item Value Reference Range Comments APPEARANCE FLUID (BEAKER) (test dpnd=558) Clear Clear COLOR FLUID (BEAKER) (test otvo=941) Yellow Colorless, Straw RBC FLUID (BEAKER) (test ybaf=350) 50 /cu mm <=1 ADJUSTED WBC FLUID (BEAKER) (test fpxf=2863) 41 /cu mm <=5 LINING CELLS (BEAKER) (test sgtb=4231) 0 /cu mm <=1 NEUTROPHILS FLUID (BEAKER) (test lgch=9338) 4 % LYMPHS FLUID (BEAKER) (test ciuc=857) 25 % MONO/MACROPHAGE FLUID (BEAKER) (test ouaa=302) 71 % EOSINOPHILS FLUID (BEAKER) (test wgoy=380) 0 % BASO FLUID (BEAKER) (test jcsp=248) 0 % CONTAINER BODY FLUID (BEAKER) (test cksq=3039) EDTA Tube U/S, [id number] 16:04:00Reason for exam:->ABDOMINAL PAINFINAL REPORT PROCEDURE: Ultrasound-guided paracentesis. INDICATION: Ascites. DESCRIPTION: This paracentesis was performed by Anabel Thornton under the direct supervision of Lucina Stephens After obtaining informed written consent, ultrasound scan of the abdomen identified ascites in the right lower quadrant. The overlying skin was prepped and draped in the usual, sterile fashion and local 2% lidocaine anesthesia was administered. A 5 Maldivian catheter was advanced into the peritoneal cavity and 18,500 mL of clear yellow fluid was removed. The catheter was removed without immediate complication. Samples were sent for a nalysis. IMPRESSION: Uncomplicated ultrasound-guided paracentesis with 18,500 mL fluid removed. The albumin was not given in the ultrasound department. Signed: Lucina Stephens MDReport Verified Date/Time: 10/07/2018 16:04:35 Reading Location: [place] [address] [id number] Ultrasound Reading Room C METABOLIC [id number] 09:09:00* Test Item Value Reference Range Comments SODIUM (BEAKER) (test hshh=893) 133 meq/L 136-145 POTASSIUM (BEAKER) (test kswz=844) 4.4 meq/L 3.5-5.1 CHLORIDE (BEAKER) (test mtaa=354) 104 meq/L 98-107 CO2 (BEAKER) (test ajld=276) 20 meq/L 22-29 BLOOD UREA NITROGEN (BEAKER) (test gdee=560) 52 mg/dL 7-21 CREATININE (BEAKER) (test onrj=629) 2.72 mg/dL 0.57-1.25 GLUCOSE RANDOM (BEAKER) (test flbp=138) 176 mg/dL 70-105 CALCIUM (BEAKER) (test jfjz=673) 8.5 mg/dL 8.4-10.2 EGFR (BEAKER) (test olac=1746) 25 mL/min/1.73 sq m ESTIMATED GFR IS NOT ACCURATE CREATININE CLEARANCE IN PREDICTING GLOMERULAR FILTRATION RATE. ESTIMATED GFR IS NOT APPLICABLE FOR DIALYSIS PATIENTS. CBC W/PLT COUNT & AUTO [id number] 09:08:00* Test Item Value Reference Range Comments WHITE BLOOD CELL COUNT (BEAKER) (test tixw=892) 4.4 K/ L 3.5-10.5 RED BLOOD CELL COUNT (BEAKER) (test ydqw=225) 3.00 M/ L 4.63-6.08 HEMOGLOBIN (BEAKER) (test uhhf=685) 9.3 GM/DL 13.7-17.5 HEMATOCRIT (BEAKER) (test djna=468) 28.3 % 40.1-51.0 MEAN CORPUSCULAR VOLUME (BEAKER) (test kqrx=281) 94.3 fL 79.0-92.2 MEAN CORPUSCULAR HEMOGLOBIN (BEAKER) (test kkff=874) 31.0 pg 25.7-32.2 MEAN CORPUSCULAR HEMOGLOBIN CONC (BEAKER) (test paaa=383) 32.9 GM/DL 32.3-36.5 RED CELL DISTRIBUTION WIDTH (BEAKER) (test xmzy=871) 13.7 % 11.6-14.4 PLATELET COUNT (BEAKER) (test kxzd=445) 90 K/CU MM 150-450 MEAN PLATELET VOLUME (BEAKER) (test kbva=867) 10.6 fL 9.4-12.4 NUCLEATED RED BLOOD CELLS (BEAKER) (test unoj=986) 0 /100 WBC 0-0 NEUTROPHILS RELATIVE PERCENT (BEAKER) (test pezd=935) 83 % LYMPHOCYTES RELATIVE PERCENT (BEAKER) (test xokm=945) 6 % MONOCYTES RELATIVE PERCENT (BEAKER) (test yxyg=975) 7 % EOSINOPHILS RELATIVE PERCENT (BEAKER) (test bwyu=893) 2 % BASOPHILS RELATIVE PERCENT (BEAKER) (test tjbt=634) 1 % NEUTROPHILS ABSOLUTE COUNT (BEAKER) (test eice=838) 3.65 K/ L 1.78-5.38 LYMPHOCYTES ABSOLUTE COUNT (BEAKER) (test honj=807) 0.27 K/ L 1.32-3.57 MONOCYTES ABSOLUTE COUNT (BEAKER) (test sgvp=057) 0.31 K/ L 0.30-0.82 EOSINOPHILS ABSOLUTE COUNT (BEAKER) (test yydj=417) 0.09 K/ L 0.04-0.54 BASOPHILS ABSOLUTE COUNT (BEAKER) (test uyel=840) 0.03 K/ L 0.01-0.08 IMMATURE GRANULOCYTES-RELATIVE PERCENT (BEAKER) (test fhwi=0991) 1 % 0-1 [id number] 09:06:00* Test Item Value Reference Range Comments PROTIME (BEAKER) (test acip=981) 14.7 seconds 11.7-14.7 INR (BEAKER) (test vtsh=303) 1.1 <=5.9 PARTIAL THROMBOPLASTIN TIME (BEAKER) (test asqe=695) 32.6 seconds 22.5-36.0 RECOMMENDED COUMADIN/WARFARIN INR THERAPY RANGESSTANDARD DOSE: 2.0 - 3.0 Inclu sun: PROPHYLAXIS for venous thrombosis, systemic embolization; TREATMENT for santo ous thrombosis and/or pulmonary embolus.HIGH RISK: Target INR is 2.5-3.5 for pat ients with mechanical heart valves.[id number] 08:58:00* Test Item Value Reference Range Comments LIPASE (BEAKER) (test yqpd=738) 18 U/L 8-78 HEPATIC FUNCTION [id number] 08:58:00* Test Item Value Reference Range Comments TOTAL PROTEIN (BEAKER) (test ebij=780) 6.3 gm/dL 6.0-8.3 ALBUMIN (BEAKER) (test qycq=7856) 2.8 g/dL 3.5-5.0 BILIRUBIN TOTAL (BEAKER) (test kbrw=021) 0.6 mg/dL 0.2-1.2 BILIRUBIN DIRECT (BEAKER) (test trom=255) 0.5 mg/dL 0.1-0.5 ALKALINE PHOSPHATASE (BEAKER) (test xlbs=016) 197 U/L 40-150 AST (SGOT) (BEAKER) (test dxfn=911) 23 U/L 5-34 ALT (SGPT) (BEAKER) (test gjii=188) 20 U/L 6-55 U/S, [id number] 19:50:00Reason for exam:->ASCITESFINAL REPORT PROCEDURE: Ultrasound-guided paracentesis. INDICATION: Ascites. DESCRIPTION: After obtaining informed written consent, ultrasound scan of the abdomen identified ascites in the right lower quadrant. The overlying skin was prepped and draped in the usual, sterile fashion and local 1% lidocaine anesthesia was administered. A 5 Maldivian catheter was advanced into the peritoneal cavity and 15.8 L of clear yellow fluid was removed. The catheter was removed without immediate complication. Samples were sent for analysis. IMPRESS ION:Uncomplicated ultrasound-guided paracentesis with 15.8 L of fluid removed. S igned: Lucina Stephens MDReport Verified Date/Time: 09/27/2018 19:50:53 Reading Loca tion: [facility] B1 P006J Ultrasound Reading Room C METABOLIC [id number] 09:06:00* Test Item Value Reference Range Comments SODIUM (BEAKER) (test awri=905) 133 meq/L 136-145 POTASSIUM (BEAKER) (test sfuj=165) 3.8 meq/L 3.5-5.1 CHLORIDE (BEAKER) (test apal=018) 106 meq/L 98-107 CO2 (BEAKER) (test hukl=729) 18 meq/L 22-29 BLOOD UREA NITROGEN (BEAKER) (test hrfl=030) 53 mg/dL 7-21 CREATININE (BEAKER) (test dwnd=491) 2.41 mg/dL 0.57-1.25 GLUCOSE RANDOM (BEAKER) (test yntz=178) 150 mg/dL 70-105 CALCIUM (BEAKER) (test tuyv=490) 8.3 mg/dL 8.4-10.2 EGFR (BEAKER) (test rsjq=8802) 29 mL/min/1.73 sq m ESTIMATED GFR IS NOT ACCURATE CREATININE CLEARANCE IN PREDICTING GLOMERULAR FILTRATION RATE. ESTIMATED GFR IS NOT APPLICABLE FOR DIALYSIS PATIENTS. CBC W/PLT COUNT & AUTO [id number] 08:53:00* Test Item Value Reference Range Comments WHITE BLOOD CELL COUNT (BEAKER) (test whqj=493) 4.9 K/ L 3.5-10.5 RED BLOOD CELL COUNT (BEAKER) (test qfmp=747) 3.06 M/ L 4.63-6.08 HEMOGLOBIN (BEAKER) (test xrqg=550) 9.4 GM/DL 13.7-17.5 HEMATOCRIT (BEAKER) (test qbmh=206) 28.5 % 40.1-51.0 MEAN CORPUSCULAR VOLUME (BEAKER) (test mpdq=340) 93.1 fL 79.0-92.2 MEAN CORPUSCULAR HEMOGLOBIN (BEAKER) (test xwgi=034) 30.7 pg 25.7-32.2 MEAN CORPUSCULAR HEMOGLOBIN CONC (BEAKER) (test cepl=270) 33.0 GM/DL 32.3-36.5 RED CELL DISTRIBUTION WIDTH (BEAKER) (test egvj=948) 14.5 % 11.6-14.4 PLATELET COUNT (BEAKER) (test bhjw=172) 71 K/CU MM 150-450 MEAN PLATELET VOLUME (BEAKER) (test bzji=683) 10.4 fL 9.4-12.4 NUCLEATED RED BLOOD CELLS (BEAKER) (test acca=724) 0 /100 WBC 0-0 NEUTROPHILS RELATIVE PERCENT (BEAKER) (test ajza=995) 81 % LYMPHOCYTES RELATIVE PERCENT (BEAKER) (test ctmv=161) 7 % MONOCYTES RELATIVE PERCENT (BEAKER) (test nasg=805) 8 % EOSINOPHILS RELATIVE PERCENT (BEAKER) (test iaxg=663) 2 % BASOPHILS RELATIVE PERCENT (BEAKER) (test lssl=754) 1 % NEUTROPHILS ABSOLUTE COUNT (BEAKER) (test ybyd=868) 3.92 K/ L 1.78-5.38 LYMPHOCYTES ABSOLUTE COUNT (BEAKER) (test pthf=079) 0.35 K/ L 1.32-3.57 MONOCYTES ABSOLUTE COUNT (BEAKER) (test zgrn=714) 0.41 K/ L 0.30-0.82 EOSINOPHILS ABSOLUTE COUNT (BEAKER) (test lpqa=433) 0.11 K/ L 0.04-0.54 BASOPHILS ABSOLUTE COUNT (BEAKER) (test cxyd=043) 0.03 K/ L 0.01-0.08 IMMATURE GRANULOCYTES-RELATIVE PERCENT (BEAKER) (test vlke=6387) 1 % 0-1 HEPATIC FUNCTION [id number] 08:53:00* Test Item Value Reference Range Comments TOTAL PROTEIN (BEAKER) (test yrwz=031) 6.0 gm/dL 6.0-8.3 ALBUMIN (BEAKER) (test uytu=3329) 2.8 g/dL 3.5-5.0 BILIRUBIN TOTAL (BEAKER) (test aqfm=236) 0.9 mg/dL 0.2-1.2 BILIRUBIN DIRECT (BEAKER) (test tlyp=570) 0.6 mg/dL 0.1-0.5 ALKALINE PHOSPHATASE (BEAKER) (test mrju=278) 184 U/L 40-150 AST (SGOT) (BEAKER) (test tskr=488) 19 U/L 5-34 ALT (SGPT) (BEAKER) (test hmjr=694) 18 U/L 6-55 [id number] 08:49:00* Test Item Value Reference Range Comments PROTIME (BEAKER) (test ckwd=846) 15.5 seconds 11.7-14.7 INR (BEAKER) (test qopa=693) 1.2 <=5.9 PARTIAL THROMBOPLASTIN TIME (BEAKER) (test qlzn=878) 35.7 seconds 22.5-36.0 RECOMMENDED COUMADIN/WARFARIN INR THERAPY RANGESSTANDARD DOSE: 2.0 - 3.0 Inclu sun: PROPHYLAXIS for venous thrombosis, systemic embolization; TREATMENT for santo ous thrombosis and/or pulmonary embolus.HIGH RISK: Target INR is 2.5-3.5 for pat ients with mechanical heart valves.HEPATIC FUNCTION [id number] 20:12:00* Test Item Value Reference Range Comments TOTAL PROTEIN (BEAKER) (test ulnf=159) 6.1 gm/dL 6.0-8.3 ALBUMIN (BEAKER) (test usfq=5894) 2.9 g/dL 3.5-5.0 BILIRUBIN TOTAL (BEAKER) (test pxke=391) 0.7 mg/dL 0.2-1.2 BILIRUBIN DIRECT (BEAKER) (test ywiq=037) 0.5 mg/dL 0.1-0.5 ALKALINE PHOSPHATASE (BEAKER) (test wicy=654) 201 U/L 40-150 AST (SGOT) (BEAKER) (test vkal=428) 23 U/L 5-34 ALT (SGPT) (BEAKER) (test bbvs=064) 20 U/L 6-55 BASIC METABOLIC [id number] 20:12:00* Test Item Value Reference Range Comments SODIUM (BEAKER) (test ckka=237) 133 meq/L 136-145 POTASSIUM (BEAKER) (test pono=512) 3.5 meq/L 3.5-5.1 CHLORIDE (BEAKER) (test vjaj=611) 105 meq/L 98-107 CO2 (BEAKER) (test qeqf=060) 19 meq/L 22-29 BLOOD UREA NITROGEN (BEAKER) (test suca=080) 47 mg/dL 7-21 CREATININE (BEAKER) (test lqyt=046) 2.68 mg/dL 0.57-1.25 GLUCOSE RANDOM (BEAKER) (test fept=471) 179 mg/dL 70-105 CALCIUM (BEAKER) (test knct=249) 8.4 mg/dL 8.4-10.2 EGFR (BEAKER) (test rhmn=9315) 25 mL/min/1.73 sq m ESTIMATED GFR IS NOT ACCURATE CREATININE CLEARANCE IN PREDICTING GLOMERULAR FILTRATION RATE. ESTIMATED GFR IS NOT APPLICABLE FOR DIALYSIS PATIENTS. [id number] 20:04:00* Test Item Value Reference Range Comments PROTIME (BEAKER) (test vjmx=694) 16.1 seconds 11.7-14.7 INR (BEAKER) (test fowb=183) 1.3 <=5.9 PARTIAL THROMBOPLASTIN TIME (BEAKER) (test tivy=720) 31.4 seconds 22.5-36.0 RECOMMENDED COUMADIN/WARFARIN INR THERAPY RANGESSTANDARD DOSE: 2.0 - 3.0 Inclu sun: PROPHYLAXIS for venous thrombosis, systemic embolization; TREATMENT for santo ous thrombosis and/or pulmonary embolus.HIGH RISK: Target INR is 2.5-3.5 for pat ients with mechanical heart valves.CBC W/PLT COUNT & AUTO [id number] 19:55:00* Test Item Value Reference Range Comments WHITE BLOOD CELL COUNT (BEAKER) (test tvul=358) 4.8 K/ L 3.5-10.5 RED BLOOD CELL COUNT (BEAKER) (test zgki=221) 3.02 M/ L 4.63-6.08 HEMOGLOBIN (BEAKER) (test astn=289) 9.4 GM/DL 13.7-17.5 HEMATOCRIT (BEAKER) (test thij=391) 28.1 % 40.1-51.0 MEAN CORPUSCULAR VOLUME (BEAKER) (test jejz=404) 93.0 fL 79.0-92.2 MEAN CORPUSCULAR HEMOGLOBIN (BEAKER) (test phqq=363) 31.1 pg 25.7-32.2 MEAN CORPUSCULAR HEMOGLOBIN CONC (BEAKER) (test cdjf=444) 33.5 GM/DL 32.3-36.5 RED CELL DISTRIBUTION WIDTH (BEAKER) (test qtsk=343) 14.9 % 11.6-14.4 PLATELET COUNT (BEAKER) (test cwna=930) 95 K/CU MM 150-450 MEAN PLATELET VOLUME (BEAKER) (test xadh=911) 10.6 fL 9.4-12.4 NUCLEATED RED BLOOD CELLS (BEAKER) (test otch=165) 0 /100 WBC 0-0 NEUTROPHILS RELATIVE PERCENT (BEAKER) (test hjxl=625) 80 % LYMPHOCYTES RELATIVE PERCENT (BEAKER) (test clxq=134) 9 % MONOCYTES RELATIVE PERCENT (BEAKER) (test gben=670) 8 % EOSINOPHILS RELATIVE PERCENT (BEAKER) (test ruee=231) 3 % BASOPHILS RELATIVE PERCENT (BEAKER) (test ngmi=567) 0 % NEUTROPHILS ABSOLUTE COUNT (BEAKER) (test wqis=840) 3.83 K/ L 1.78-5.38 LYMPHOCYTES ABSOLUTE COUNT (BEAKER) (test avnd=665) 0.44 K/ L 1.32-3.57 MONOCYTES ABSOLUTE COUNT (BEAKER) (test qczr=942) 0.37 K/ L 0.30-0.82 EOSINOPHILS ABSOLUTE COUNT (BEAKER) (test vykv=902) 0.12 K/ L 0.04-0.54 BASOPHILS ABSOLUTE COUNT (BEAKER) (test nogl=913) 0.02 K/ L 0.01-0.08 IMMATURE GRANULOCYTES-RELATIVE PERCENT (BEAKER) (test zxbb=8677) 1 % 0-1 COMPREHENSIVE METABOLIC [id number] 15:01:00* Test Item Value Reference Range Comments TOTAL PROTEIN (BEAKER) (test qbjh=212) 6.5 gm/dL 6.0-8.3 ALBUMIN (BEAKER) (test aepz=3082) 3.1 g/dL 3.5-5.0 ALKALINE PHOSPHATASE (BEAKER) (test wieu=772) 204 U/L 40-150 BILIRUBIN TOTAL (BEAKER) (test bgbt=215) 1.4 mg/dL 0.2-1.2 SODIUM (BEAKER) (test pdus=642) 133 meq/L 136-145 POTASSIUM (BEAKER) (test vsim=142) 4.2 meq/L 3.5-5.1 CHLORIDE (BEAKER) (test hktp=014) 106 meq/L 98-107 CO2 (BEAKER) (test geiy=943) 17 meq/L 22-29 BLOOD UREA NITROGEN (BEAKER) (test bune=122) 47 mg/dL 7-21 CREATININE (BEAKER) (test shpv=482) 2.60 mg/dL 0.57-1.25 GLUCOSE RANDOM (BEAKER) (test uxsw=920) 90 mg/dL 70-105 CALCIUM (BEAKER) (test scgi=111) 8.9 mg/dL 8.4-10.2 AST (SGOT) (BEAKER) (test vxdg=926) 25 U/L 5-34 ALT (SGPT) (BEAKER) (test qtmc=137) 23 U/L 6-55 EGFR (BEAKER) (test jdbm=6279) 26 mL/min/1.73 sq m ESTIMATED GFR IS NOT ACCURATE CREATININE CLEARANCE IN PREDICTING GLOMERULAR FILTRATION RATE. ESTIMATED GFR IS NOT APPLICABLE FOR DIALYSIS PATIENTS. BILIRUBIN, [id number] 14:58:00* Test Item Value Reference Range Comments BILIRUBIN DIRECT (BEAKER) (test bfpj=019) 0.9 mg/dL 0.1-0.5 PROTHROMBIN [id number] 14:44:00* Test Item Value Reference Range Comments PROTIME (BEAKER) (test fsos=549) 15.3 seconds 11.7-14.7 INR (BEAKER) (test lfym=766) 1.2 <=5.9 RECOMMENDED COUMADIN/WARFARIN INR THERAPY RANGESSTANDARD DOSE: 2.0 - 3.0 Inclu sun: PROPHYLAXIS for venous thrombosis, systemic embolization; TREATMENT for santo ous thrombosis and/or pulmonary embolus.HIGH RISK: Target INR is 2.5-3.5 for pat ients with mechanical heart valves.CBC W/PLT COUNT & AUTO [id number] 14:35:00* Test Item Value Reference Range Comments WHITE BLOOD CELL COUNT (BEAKER) (test qguf=928) 5.5 K/ L 3.5-10.5 RED BLOOD CELL COUNT (BEAKER) (test dexx=088) 3.30 M/ L 4.63-6.08 HEMOGLOBIN (BEAKER) (test ewut=339) 10.3 GM/DL 13.7-17.5 HEMATOCRIT (BEAKER) (test boag=986) 30.7 % 40.1-51.0 MEAN CORPUSCULAR VOLUME (BEAKER) (test stml=108) 93.0 fL 79.0-92.2 MEAN CORPUSCULAR HEMOGLOBIN (BEAKER) (test gowd=295) 31.2 pg 25.7-32.2 MEAN CORPUSCULAR HEMOGLOBIN CONC (BEAKER) (test wgfx=242) 33.6 GM/DL 32.3-36.5 RED CELL DISTRIBUTION WIDTH (BEAKER) (test enxc=997) 15.1 % 11.6-14.4 PLATELET COUNT (BEAKER) (test ghrk=873) 112 K/CU MM 150-450 MEAN PLATELET VOLUME (BEAKER) (test nmfe=034) 11.1 fL 9.4-12.4 NUCLEATED RED BLOOD CELLS (BEAKER) (test ruzo=477) 0 /100 WBC 0-0 NEUTROPHILS RELATIVE PERCENT (BEAKER) (test izem=242) 77 % LYMPHOCYTES RELATIVE PERCENT (BEAKER) (test arpp=050) 12 % MONOCYTES RELATIVE PERCENT (BEAKER) (test jvxo=923) 7 % EOSINOPHILS RELATIVE PERCENT (BEAKER) (test lltj=826) 3 % BASOPHILS RELATIVE PERCENT (BEAKER) (test rdol=632) 1 % NEUTROPHILS ABSOLUTE COUNT (BEAKER) (test fnrc=971) 4.21 K/ L 1.78-5.38 LYMPHOCYTES ABSOLUTE COUNT (BEAKER) (test bavr=673) 0.63 K/ L 1.32-3.57 MONOCYTES ABSOLUTE COUNT (BEAKER) (test llys=196) 0.40 K/ L 0.30-0.82 EOSINOPHILS ABSOLUTE COUNT (BEAKER) (test disc=076) 0.17 K/ L 0.04-0.54 BASOPHILS ABSOLUTE COUNT (BEAKER) (test ousw=365) 0.04 K/ L 0.01-0.08 IMMATURE GRANULOCYTES-RELATIVE PERCENT (BEAKER) (test aurb=8043) 1 % 0-1 U/S, [id number] 17:32:00Administer 200 mL of albumin 25% (50 grams) IV x1 after paracentesis if 3 or more liters removed.Send ascitic fluid for cell count and differential.Reason for Exam:->AscitesFINAL REPORT Indication: Ascites. Technique: Ultrasound guided paracentesis. Findings:Preliminary ultrasound confirms ascites. A safe window was identified in the right lower quadrant. The procedure was explained to the patient and informed consent was signed. The skin was marked and prepped in standard sterile fashion. Lidocaine was used for local anesthesia. A 5 Maldivian needle catheter system was advanced into the peritoneal space. 11,000 cc clear yellow fluid was taken off. Patient tolerated the procedure well. Impression: Ultrasound guided paracentesis. Signed: Kwan Lockhart [facility] INSTITUTEeport Verified Date/Time: 09/20/2018 17:32:01 Reading Location: [facility] [id number] Ultrasound Reading Room FLUID CELL COUNT WITH [id number] 17:20:00* Test Item Value Reference Range Comments APPEARANCE FLUID (BEAKER) (test vtob=437) Clear Clear COLOR FLUID (BEAKER) (test sriz=151) Yellow Colorless, Straw RBC FLUID (BEAKER) (test ctnn=511) 154 /cu mm <=1 ADJUSTED WBC FLUID (BEAKER) (test amup=7561) 42 /cu mm <=5 LINING CELLS (BEAKER) (test vdwh=9240) 0 /cu mm <=1 NEUTROPHILS FLUID (BEAKER) (test ueos=7749) 6 % LYMPHS FLUID (BEAKER) (test ibor=955) 25 % MONO/MACROPHAGE FLUID (BEAKER) (test isob=831) 69 % EOSINOPHILS FLUID (BEAKER) (test vwgu=216) 0 % BASO FLUID (BEAKER) (test dsay=245) 0 % CONTAINER BODY FLUID (BEAKER) (test zvlw=7916) EDTA Tube BODY FLUID CELL COUNT WITH [id number] 18:13:00* Test Item Value Reference Range Comments APPEARANCE FLUID (BEAKER) (test pela=892) Slightly Hazy Clear COLOR FLUID (BEAKER) (test ftsc=621) Straw Colorless, Straw RBC FLUID (BEAKER) (test lylo=045) 390 /cu mm <=1 ADJUSTED WBC FLUID (BEAKER) (test xweg=1703) 60 /cu mm <=5 LINING CELLS (BEAKER) (test endd=7478) 0 /cu mm <=1 NEUTROPHILS FLUID (BEAKER) (test swut=9634) 6 % LYMPHS FLUID (BEAKER) (test ufkq=861) 19 % MONO/MACROPHAGE FLUID (BEAKER) (test iibr=905) 75 % EOSINOPHILS FLUID (BEAKER) (test oyqg=705) 0 % BASO FLUID (BEAKER) (test skkt=506) 0 % CONTAINER BODY FLUID (BEAKER) (test fjhs=2764) EDTA Tube U/S, [id number] 15:49:00LIMIT PARACENTESIS to 5 LITERSAdminister 200 mL of albumin 25% (50 grams) IV x1 after paracentesis if 3 or more liters removed.Send ascitic fluid for cell count and differential.Reason for Exam:-> cirrhosis,ascitisFINAL REPORT Ultrasound guided paracentesis Clinical History: Ascites Local Anesthesia: 5 cc of 1% lidocaine Technique: Informed consent is obtained. The risks of pain, bleeding, infection, bowel perforation, injury to adjacent structures, and adverse medication reactions are discussed with the patient. After informed consent is obtained, the patient's abdomen is scanned. The right lower quadrant of the abdomen is selected for paracentesis. After the largest fluid pocket area is marked, and the anterior abdominal wall is evaluated with color Doppler to exclude presence of blood vessels traversing the area, the skin is prepped and draped in the usual sterile manner. After local anesthesia is achieved, a 5 Maldivian catheter is advanced into the peritoneal cavity. Approximately 5000 cc of clear yellow fluid is drained, without immediate complications. Fluid is sent for analysis. Patient Disposition: The patient is discharged from the ultrasound department after the paracentesis, in good condition. Impression: Successful and uncomplicated ultrasound guided paracentesis is performed. Signed: Jules Cornell Verified Date/Time: 09/13/2018 15:49:12 Reading Location: [address] Ultrasound Reading Room U/S, [id number] 20:16:00 Reason for exam:->abd painShould this be performed at the bedside?->NoFINAL REPORT PROCEDURE: Ultrasound-guided paracentesis. I NDICATION: Ascites. DESCRIPTION: After obtaining informed written consent, ultra sound scan of the abdomen identified ascites in the right lower quadrant. The ov erlying skin was prepped and draped in the usual, sterile fashion and local 1% l idocaine anesthesia was administered. A 5 Maldivian catheter was advanced into the peritoneal cavity and 6000 mL of clear samreen fluid was removed. The catheter was removed without immediate complication. Samples were sent for analysis. IMPRESS ION:Uncomplicated ultrasound-guided paracentesis with 6000 mL fluid removed. Sig bryan: Lucina Stephens MDRrossort Verified Date/Time: 09/06/2018 20:16:44 Reading Locati on: [place] [id number] Ultrasound Reading Room W/PLT COUNT & AUTO [id number] 09:15:00* Test Item Value Reference Range Comments WHITE BLOOD CELL COUNT (BEAKER) (test semg=526) 4.7 K/ L 3.5-10.5 RED BLOOD CELL COUNT (BEAKER) (test udhi=079) 2.77 M/ L 4.63-6.08 HEMOGLOBIN (BEAKER) (test gsct=767) 8.9 GM/DL 13.7-17.5 HEMATOCRIT (BEAKER) (test ktxe=197) 26.2 % 40.1-51.0 MEAN CORPUSCULAR VOLUME (BEAKER) (test zmrh=858) 94.6 fL 79.0-92.2 MEAN CORPUSCULAR HEMOGLOBIN (BEAKER) (test lpyn=849) 32.1 pg 25.7-32.2 MEAN CORPUSCULAR HEMOGLOBIN CONC (BEAKER) (test nbgr=991) 34.0 GM/DL 32.3-36.5 RED CELL DISTRIBUTION WIDTH (BEAKER) (test uuep=049) 15.1 % 11.6-14.4 PLATELET COUNT (BEAKER) (test yhub=689) 78 K/CU MM 150-450 MEAN PLATELET VOLUME (BEAKER) (test pndq=804) 11.3 fL 9.4-12.4 NUCLEATED RED BLOOD CELLS (BEAKER) (test cqmx=838) 0 /100 WBC 0-0 NEUTROPHILS RELATIVE PERCENT (BEAKER) (test yfxi=936) 83 % LYMPHOCYTES RELATIVE PERCENT (BEAKER) (test fywi=767) 6 % MONOCYTES RELATIVE PERCENT (BEAKER) (test exld=894) 9 % EOSINOPHILS RELATIVE PERCENT (BEAKER) (test qfut=279) 2 % BASOPHILS RELATIVE PERCENT (BEAKER) (test vmqy=978) 0 % NEUTROPHILS ABSOLUTE COUNT (BEAKER) (test ckzj=103) 3.93 K/ L 1.78-5.38 LYMPHOCYTES ABSOLUTE COUNT (BEAKER) (test feyi=670) 0.27 K/ L 1.32-3.57 MONOCYTES ABSOLUTE COUNT (BEAKER) (test hyzj=572) 0.40 K/ L 0.30-0.82 EOSINOPHILS ABSOLUTE COUNT (BEAKER) (test ioah=073) 0.08 K/ L 0.04-0.54 BASOPHILS ABSOLUTE COUNT (BEAKER) (test pttm=253) 0.02 K/ L 0.01-0.08 IMMATURE GRANULOCYTES-RELATIVE PERCENT (BEAKER) (test ejlr=8405) 1 % 0-1 BASIC METABOLIC [id number] 09:14:00* Test Item Value Reference Range Comments SODIUM (BEAKER) (test juyj=699) 132 meq/L 136-145 POTASSIUM (BEAKER) (test izlo=228) 3.7 meq/L 3.5-5.1 CHLORIDE (BEAKER) (test bkvk=231) 108 meq/L 98-107 CO2 (BEAKER) (test whxc=090) 14 meq/L 22-29 BLOOD UREA NITROGEN (BEAKER) (test hgve=991) 59 mg/dL 7-21 CREATININE (BEAKER) (test ipgf=446) 2.79 mg/dL 0.57-1.25 GLUCOSE RANDOM (BEAKER) (test ydsf=480) 190 mg/dL 70-105 CALCIUM (BEAKER) (test biea=066) 8.2 mg/dL 8.4-10.2 EGFR (BEAKER) (test mudo=5102) 24 mL/min/1.73 sq m ESTIMATED GFR IS NOT ACCURATE CREATININE CLEARANCE IN PREDICTING GLOMERULAR FILTRATION RATE. ESTIMATED GFR IS NOT APPLICABLE FOR DIALYSIS PATIENTS. [id number] 09:00:00* Test Item Value Reference Range Comments PROTIME (BEAKER) (test fvjo=332) 15.6 seconds 11.7-14.7 INR (BEAKER) (test nqco=314) 1.2 <=5.9 PARTIAL THROMBOPLASTIN TIME (BEAKER) (test tjdf=393) 32.9 seconds 22.5-36.0 RECOMMENDED COUMADIN/WARFARIN INR THERAPY RANGESSTANDARD DOSE: 2.0 - 3.0 Inclu sun: PROPHYLAXIS for venous thrombosis, systemic embolization; TREATMENT for santo ous thrombosis and/or pulmonary embolus.HIGH RISK: Target INR is 2.5-3.5 for pat ients with mechanical heart valves.BODY FLUID CELL COUNT WITH DIFFERENTIAL 2018-08-30 17:37:00* Test Item Value Reference Range Comments APPEARANCE FLUID (BEAKER) (test qkca=799) Slightly Hazy Clear COLOR FLUID (BEAKER) (test egve=490) Yellow Colorless, Straw RBC FLUID (BEAKER) (test fpdv=254) 249 /cu mm <=1 ADJUSTED WBC FLUID (BEAKER) (test mytm=8012) 16 /cu mm <=5 LINING CELLS (BEAKER) (test wwnh=0318) 0 /cu mm <=1 NEUTROPHILS FLUID (BEAKER) (test jwvl=9415) 4 % LYMPHS FLUID (BEAKER) (test sqao=149) 30 % MONO/MACROPHAGE FLUID (BEAKER) (test vgeh=287) 66 % EOSINOPHILS FLUID (BEAKER) (test qyfk=669) 0 % BASO FLUID (BEAKER) (test awwq=232) 0 % CONTAINER BODY FLUID (BEAKER) (test liyk=8856) EDTA Tube U/S, [id number] 16:08:00Reason for exam:->ASCITESFINAL REPORT PROCEDURE: Ultrasound-guided paracentesis. INDICATION: 52-year-old man with ascites. DESCRIPTION: After obtaining informed written consent, ultrasound scan of the abdomen identified ascites in the right lower quadrant. The overlying skin was prepped and draped in the usual, sterile f ashion and local 1% lidocaine anesthesia was administered. A 5 Maldivian catheter w as advanced into the peritoneal cavity and 11,800 cc of serous fluid was removed . The catheter was removed without immediate complication. Samples were sent to the lab for storage. IMPRESSION:Uncomplicated ultrasound-guided paracentesis wit h 11,800 cc fluid removed. Signed: Chrissy Downs MDReport Verified Date/Time: 08/30/2018 16:08:29 Reading Location: [facility] [id number] Ultrasound Reading Room E lectronically signed by: CHRISSY DOWNS MD on 08/30/2018 04:08 PM HEPATIC FUNCTION [id number] 09:43:00* Test Item Value Reference Range Comments TOTAL PROTEIN (BEAKER) (test owli=110) 6.2 gm/dL 6.0-8.3 ALBUMIN (BEAKER) (test wnpl=9525) 3.0 g/dL 3.5-5.0 BILIRUBIN TOTAL (BEAKER) (test tofz=790) 1.0 mg/dL 0.2-1.2 BILIRUBIN DIRECT (BEAKER) (test mmou=010) 0.7 mg/dL 0.1-0.5 ALKALINE PHOSPHATASE (BEAKER) (test ivqh=057) 251 U/L 40-150 AST (SGOT) (BEAKER) (test emoq=733) 32 U/L 5-34 ALT (SGPT) (BEAKER) (test nlxl=586) 28 U/L 6-55 BASIC METABOLIC [id number] 09:43:00* Test Item Value Reference Range Comments SODIUM (BEAKER) (test iqjf=505) 132 meq/L 136-145 POTASSIUM (BEAKER) (test tbjv=045) 4.6 meq/L 3.5-5.1 CHLORIDE (BEAKER) (test jhnj=208) 109 meq/L 98-107 CO2 (BEAKER) (test vfme=854) 16 meq/L 22-29 BLOOD UREA NITROGEN (BEAKER) (test vfev=332) 44 mg/dL 7-21 CREATININE (BEAKER) (test rdpq=920) 2.05 mg/dL 0.57-1.25 GLUCOSE RANDOM (BEAKER) (test upgc=632) 180 mg/dL 70-105 CALCIUM (BEAKER) (test syuu=198) 8.7 mg/dL 8.4-10.2 EGFR (BEAKER) (test ktrv=8740) 35 mL/min/1.73 sq m ESTIMATED GFR IS NOT ACCURATE CREATININE CLEARANCE IN PREDICTING GLOMERULAR FILTRATION RATE. ESTIMATED GFR IS NOT APPLICABLE FOR DIALYSIS PATIENTS. [id number] 09:43:00* Test Item Value Reference Range Comments PROTIME (BEAKER) (test vwzx=866) 16.6 seconds 11.7-14.7 INR (BEAKER) (test vxjm=171) 1.3 <=5.9 PARTIAL THROMBOPLASTIN TIME (BEAKER) (test gvvk=988) 33.8 seconds 22.5-36.0 RECOMMENDED COUMADIN/WARFARIN INR THERAPY RANGESSTANDARD DOSE: 2.0 - 3.0 Inclu sun: PROPHYLAXIS for venous thrombosis, systemic embolization; TREATMENT for santo ous thrombosis and/or pulmonary embolus.HIGH RISK: Target INR is 2.5-3.5 for pat ients with mechanical heart valves.[id number] 09:34:00* Test Item Value Reference Range Comments AMMONIA (BEAKER) (test hmuu=651) 61 mol/L 18-72 CBC W/PLT COUNT & AUTO [id number] 09:33:00* Test Item Value Reference Range Comments WHITE BLOOD CELL COUNT (BEAKER) (test fqmd=061) 4.5 K/ L 3.5-10.5 RED BLOOD CELL COUNT (BEAKER) (test lsqg=355) 3.03 M/ L 4.63-6.08 HEMOGLOBIN (BEAKER) (test skpm=526) 9.6 GM/DL 13.7-17.5 HEMATOCRIT (BEAKER) (test ijoy=529) 29.1 % 40.1-51.0 MEAN CORPUSCULAR VOLUME (BEAKER) (test jvlg=538) 96.0 fL 79.0-92.2 MEAN CORPUSCULAR HEMOGLOBIN (BEAKER) (test wvlv=608) 31.7 pg 25.7-32.2 MEAN CORPUSCULAR HEMOGLOBIN CONC (BEAKER) (test wnlw=853) 33.0 GM/DL 32.3-36.5 RED CELL DISTRIBUTION WIDTH (BEAKER) (test uvoo=892) 15.7 % 11.6-14.4 PLATELET COUNT (BEAKER) (test afbq=670) 93 K/CU MM 150-450 MEAN PLATELET VOLUME (BEAKER) (test vtdk=071) 11.2 fL 9.4-12.4 NUCLEATED RED BLOOD CELLS (BEAKER) (test pfcg=695) 0 /100 WBC 0-0 NEUTROPHILS RELATIVE PERCENT (BEAKER) (test yczh=487) 79 % LYMPHOCYTES RELATIVE PERCENT (BEAKER) (test jckz=675) 8 % MONOCYTES RELATIVE PERCENT (BEAKER) (test ghmc=729) 9 % EOSINOPHILS RELATIVE PERCENT (BEAKER) (test vfvc=147) 3 % BASOPHILS RELATIVE PERCENT (BEAKER) (test klqg=776) 1 % NEUTROPHILS ABSOLUTE COUNT (BEAKER) (test jaqz=856) 3.54 K/ L 1.78-5.38 LYMPHOCYTES ABSOLUTE COUNT (BEAKER) (test gxqo=434) 0.37 K/ L 1.32-3.57 MONOCYTES ABSOLUTE COUNT (BEAKER) (test buhr=398) 0.40 K/ L 0.30-0.82 EOSINOPHILS ABSOLUTE COUNT (BEAKER) (test zscb=057) 0.12 K/ L 0.04-0.54 BASOPHILS ABSOLUTE COUNT (BEAKER) (test kpaf=031) 0.04 K/ L 0.01-0.08 IMMATURE GRANULOCYTES-RELATIVE PERCENT (BEAKER) (test kase=5599) 1 % 0-1 BODY FLUID CELL COUNT WITH [id number] 14:00:00* Test Item Value Reference Range Comments APPEARANCE FLUID (BEAKER) (test trvo=553) Hazy Clear COLOR FLUID (BEAKER) (test ekin=846) [place] Colorless, Straw RBC FLUID (BEAKER) (test pgvs=481) [address] /cu mm <=1 ADJUSTED WBC FLUID (BEAKER) (test ngkj=8246) 140 /cu mm <=5 LINING CELLS (BEAKER) (test alls=4123) 10 /cu mm <=1 NEUTROPHILS FLUID (BEAKER) (test bwmc=2561) 2 % LYMPHS FLUID (BEAKER) (test ggjm=235) 28 % MONO/MACROPHAGE FLUID (BEAKER) (test epde=688) 70 % EOSINOPHILS FLUID (BEAKER) (test siwq=653) 0 % BASO FLUID (BEAKER) (test huoa=086) 0 % CONTAINER BODY FLUID (BEAKER) (test cina=8978) EDTA Tube U/S, [id number] 10:24:00Reason for exam:->ASCITESFINAL REPORT Paracentesis dated 08/23/2018 Procedure: Ultrasound-guided paracentesis. Preprocedure diagnosis: Ascites Postprocedure diagnosis: Ascites Conscious sedation: None. Radiologist: Oli Engel M.D. [employer]: None Anesthesia: 1% Xylocaine mixed with sodium bicarbonate local anesthesia. Te chnique: After obtaining informed consent, ultrasound-guided paracentesis was p erformed under usual sterile technique. Using a 5 lao drainage catheter, punc ture was made in the right lower quadrant abdomen. Approximately 14,000 cc of se rosanguineous fluid was removed. Patient tolerated the procedure well without co mplication. Complication: None Graft/Implant: None Estimated Blood Loss: None Im pression: Ultrasound-guided paracentesis. Signed: Oli Engel MDReport Verified Date/Time: 08/23/2018 10:24:13 Reading Location: [address] W/PLT COUNT & AUTO [id number] 08:27:00* Test Item Value Reference Range Comments WHITE BLOOD CELL COUNT (BEAKER) (test cyty=609) 4.2 K/ L 3.5-10.5 RED BLOOD CELL COUNT (BEAKER) (test desu=643) 2.90 M/ L 4.63-6.08 HEMOGLOBIN (BEAKER) (test rmbf=954) 9.1 GM/DL 13.7-17.5 HEMATOCRIT (BEAKER) (test dpal=274) 27.1 % 40.1-51.0 MEAN CORPUSCULAR VOLUME (BEAKER) (test wxjj=875) 93.4 fL 79.0-92.2 MEAN CORPUSCULAR HEMOGLOBIN (BEAKER) (test nqqp=172) 31.4 pg 25.7-32.2 MEAN CORPUSCULAR HEMOGLOBIN CONC (BEAKER) (test nulj=736) 33.6 GM/DL 32.3-36.5 RED CELL DISTRIBUTION WIDTH (BEAKER) (test rjec=777) 15.4 % 11.6-14.4 PLATELET COUNT (BEAKER) (test rwnu=612) 91 K/CU MM 150-450 MEAN PLATELET VOLUME (BEAKER) (test aybg=284) 10.8 fL 9.4-12.4 NUCLEATED RED BLOOD CELLS (BEAKER) (test huxs=251) 0 /100 WBC 0-0 NEUTROPHILS RELATIVE PERCENT (BEAKER) (test maqf=096) 81 % LYMPHOCYTES RELATIVE PERCENT (BEAKER) (test ktpy=457) 9 % MONOCYTES RELATIVE PERCENT (BEAKER) (test ijpt=695) 7 % EOSINOPHILS RELATIVE PERCENT (BEAKER) (test amex=281) 2 % BASOPHILS RELATIVE PERCENT (BEAKER) (test orer=307) 1 % NEUTROPHILS ABSOLUTE COUNT (BEAKER) (test npmd=219) 3.38 K/ L 1.78-5.38 LYMPHOCYTES ABSOLUTE COUNT (BEAKER) (test otkp=199) 0.37 K/ L 1.32-3.57 MONOCYTES ABSOLUTE COUNT (BEAKER) (test fxgl=803) 0.31 K/ L 0.30-0.82 EOSINOPHILS ABSOLUTE COUNT (BEAKER) (test flnt=955) 0.09 K/ L 0.04-0.54 BASOPHILS ABSOLUTE COUNT (BEAKER) (test iwmh=472) 0.03 K/ L 0.01-0.08 IMMATURE GRANULOCYTES-RELATIVE PERCENT (BEAKER) (test bepv=0008) 1 % 0-1 HEPATIC FUNCTION [id number] 08:27:00* Test Item Value Reference Range Comments TOTAL PROTEIN (BEAKER) (test pdzf=088) 6.1 gm/dL 6.0-8.3 ALBUMIN (BEAKER) (test wrlz=3863) 3.0 g/dL 3.5-5.0 BILIRUBIN TOTAL (BEAKER) (test krws=324) 1.2 mg/dL 0.2-1.2 BILIRUBIN DIRECT (BEAKER) (test udsg=512) 0.9 mg/dL 0.1-0.5 ALKALINE PHOSPHATASE (BEAKER) (test gnlf=837) 266 U/L 40-150 AST (SGOT) (BEAKER) (test puku=971) 26 U/L 5-34 ALT (SGPT) (BEAKER) (test anyr=352) 23 U/L 6-55 BASIC METABOLIC [id number] 08:27:00* Test Item Value Reference Range Comments SODIUM (BEAKER) (test ngph=903) 130 meq/L 136-145 POTASSIUM (BEAKER) (test tixc=559) 4.3 meq/L 3.5-5.1 CHLORIDE (BEAKER) (test yfry=811) 107 meq/L 98-107 CO2 (BEAKER) (test rjhj=635) 19 meq/L 22-29 BLOOD UREA NITROGEN (BEAKER) (test kkku=215) 49 mg/dL 7-21 CREATININE (BEAKER) (test cjbr=040) 1.98 mg/dL 0.57-1.25 GLUCOSE RANDOM (BEAKER) (test tjgq=707) 125 mg/dL 70-105 CALCIUM (BEAKER) (test hvwi=335) 8.4 mg/dL 8.4-10.2 EGFR (BEAKER) (test vifn=9208) 36 mL/min/1.73 sq m ESTIMATED GFR IS NOT ACCURATE CREATININE CLEARANCE IN PREDICTING GLOMERULAR FILTRATION RATE. ESTIMATED GFR IS NOT APPLICABLE FOR DIALYSIS PATIENTS. PT/[id number] 08:16:00* Test Item Value Reference Range Comments PROTIME (BEAKER) (test pqdt=896) 15.6 seconds 11.7-14.7 INR (BEAKER) (test bizt=996) 1.2 <=5.9 PARTIAL THROMBOPLASTIN TIME (BEAKER) (test hznu=147) 35.2 seconds 22.5-36.0 RECOMMENDED COUMADIN/WARFARIN INR THERAPY RANGESSTANDARD DOSE: 2.0 - 3.0 Inclu sun: PROPHYLAXIS for venous thrombosis, systemic embolization; TREATMENT for santo ous thrombosis and/or pulmonary embolus.HIGH RISK: Target INR is 2.5-3.5 for pat ients with mechanical heart valves.BODY FLUID CELL COUNT WITH DIFFERENTIAL 2018-08-16 21:10:00* Test Item Value Reference Range Comments APPEARANCE FLUID (BEAKER) (test mlyq=807) Clear Clear COLOR FLUID (BEAKER) (test plkf=059) Yellow Colorless, Straw RBC FLUID (BEAKER) (test ugor=768) 640 /cu mm <=1 ADJUSTED WBC FLUID (BEAKER) (test imzf=5815) 80 /cu mm <=5 LINING CELLS (BEAKER) (test dmfh=3772) 0 /cu mm <=1 NEUTROPHILS FLUID (BEAKER) (test fnqj=9223) 0 % LYMPHS FLUID (BEAKER) (test qwlp=801) 24 % MONO/MACROPHAGE FLUID (BEAKER) (test nwww=491) 75 % EOSINOPHILS FLUID (BEAKER) (test iawh=726) 1 % BASO FLUID (BEAKER) (test evvh=892) 0 % CONTAINER BODY FLUID (BEAKER) (test zgxj=1017) EDTA Tube [id number] 09:00:00* Test Item Value Reference Range Comments LIPASE (BEAKER) (test qkhv=962) 16 U/L 8-78 BASIC METABOLIC [id number] 09:00:00* Test Item Value Reference Range Comments SODIUM (BEAKER) (test ukcg=415) 130 meq/L 136-145 POTASSIUM (BEAKER) (test lhed=433) 4.3 meq/L 3.5-5.1 CHLORIDE (BEAKER) (test yqkk=643) 106 meq/L 98-107 CO2 (BEAKER) (test colz=567) 17 meq/L 22-29 BLOOD UREA NITROGEN (BEAKER) (test jpwg=797) 49 mg/dL 7-21 CREATININE (BEAKER) (test bzfy=173) 1.98 mg/dL 0.57-1.25 GLUCOSE RANDOM (BEAKER) (test cusn=209) 153 mg/dL 70-105 CALCIUM (BEAKER) (test zvat=258) 8.6 mg/dL 8.4-10.2 EGFR (BEAKER) (test lghb=3447) 36 mL/min/1.73 sq m ESTIMATED GFR IS NOT ACCURATE CREATININE CLEARANCE IN PREDICTING GLOMERULAR FILTRATION RATE. ESTIMATED GFR IS NOT APPLICABLE FOR DIALYSIS PATIENTS. HEPATIC FUNCTION [id number] 09:00:00* Test Item Value Reference Range Comments TOTAL PROTEIN (BEAKER) (test junx=745) 6.1 gm/dL 6.0-8.3 ALBUMIN (BEAKER) (test rfcc=6036) 2.9 g/dL 3.5-5.0 BILIRUBIN TOTAL (BEAKER) (test qbor=405) 1.0 mg/dL 0.2-1.2 BILIRUBIN DIRECT (BEAKER) (test uhpy=313) 0.8 mg/dL 0.1-0.5 ALKALINE PHOSPHATASE (BEAKER) (test upvi=604) 255 U/L 40-150 AST (SGOT) (BEAKER) (test pmyi=100) 35 U/L 5-34 ALT (SGPT) (BEAKER) (test efde=961) 30 U/L 6-55 PT/[id number] 08:50:00* Test Item Value Reference Range Comments PROTIME (BEAKER) (test fjod=129) 15.9 seconds 11.7-14.7 INR (BEAKER) (test roqi=067) 1.3 <=5.9 PARTIAL THROMBOPLASTIN TIME (BEAKER) (test zwyk=265) 34.3 seconds 22.5-36.0 RECOMMENDED COUMADIN/WARFARIN INR THERAPY RANGESSTANDARD DOSE: 2.0 - 3.0 Inclu sun: PROPHYLAXIS for venous thrombosis, systemic embolization; TREATMENT for santo ous thrombosis and/or pulmonary embolus.HIGH RISK: Target INR is 2.5-3.5 for pat ients with mechanical heart valves.CBC W/PLT COUNT & AUTO [id number] 08:34:00* Test Item Value Reference Range Comments WHITE BLOOD CELL COUNT (BEAKER) (test kfgj=556) 4.9 K/ L 3.5-10.5 RED BLOOD CELL COUNT (BEAKER) (test mgzo=296) 2.80 M/ L 4.63-6.08 HEMOGLOBIN (BEAKER) (test mdkh=409) 8.7 GM/DL 13.7-17.5 HEMATOCRIT (BEAKER) (test whkk=727) 26.6 % 40.1-51.0 MEAN CORPUSCULAR VOLUME (BEAKER) (test tzwf=490) 95.0 fL 79.0-92.2 MEAN CORPUSCULAR HEMOGLOBIN (BEAKER) (test cqui=490) 31.1 pg 25.7-32.2 MEAN CORPUSCULAR HEMOGLOBIN CONC (BEAKER) (test xveo=735) 32.7 GM/DL 32.3-36.5 RED CELL DISTRIBUTION WIDTH (BEAKER) (test tzws=897) 15.1 % 11.6-14.4 PLATELET COUNT (BEAKER) (test dipw=078) 96 K/CU MM 150-450 MEAN PLATELET VOLUME (BEAKER) (test kvfd=486) 11.2 fL 9.4-12.4 NUCLEATED RED BLOOD CELLS (BEAKER) (test jaxo=638) 0 /100 WBC 0-0 NEUTROPHILS RELATIVE PERCENT (BEAKER) (test vkwj=567) 82 % LYMPHOCYTES RELATIVE PERCENT (BEAKER) (test xytm=451) 6 % MONOCYTES RELATIVE PERCENT (BEAKER) (test hspp=343) 8 % EOSINOPHILS RELATIVE PERCENT (BEAKER) (test ehzg=454) 3 % BASOPHILS RELATIVE PERCENT (BEAKER) (test dmlj=268) 1 % NEUTROPHILS ABSOLUTE COUNT (BEAKER) (test zyrx=877) 3.97 K/ L 1.78-5.38 LYMPHOCYTES ABSOLUTE COUNT (BEAKER) (test pkmh=412) 0.29 K/ L 1.32-3.57 MONOCYTES ABSOLUTE COUNT (BEAKER) (test cvqt=398) 0.41 K/ L 0.30-0.82 EOSINOPHILS ABSOLUTE COUNT (BEAKER) (test ylgu=502) 0.14 K/ L 0.04-0.54 BASOPHILS ABSOLUTE COUNT (BEAKER) (test vxnh=195) 0.03 K/ L 0.01-0.08 IMMATURE GRANULOCYTES-RELATIVE PERCENT (BEAKER) (test zrwz=4703) 0 % 0-1 BODY FLUID CELL COUNT WITH [id number] 16:47:00* Test Item Value Reference Range Comments APPEARANCE FLUID (BEAKER) (test wkvr=537) [place]urbid Clear COLOR FLUID (BEAKER) (test xwrb=578) [place] Colorless, Straw RBC FLUID (BEAKER) (test ilqy=545) [address] /cu mm <=1 ADJUSTED WBC FLUID (BEAKER) (test mijk=7938) 85 /cu mm <=5 LINING CELLS (BEAKER) (test xfmu=2856) 0 /cu mm <=1 NEUTROPHILS FLUID (BEAKER) (test wzdu=4654) 2 % LYMPHS FLUID (BEAKER) (test llgg=239) 27 % MONO/MACROPHAGE FLUID (BEAKER) (test lctn=489) 71 % EOSINOPHILS FLUID (BEAKER) (test thmf=622) 0 % BASO FLUID (BEAKER) (test wvmv=689) 0 % CONTAINER BODY FLUID (BEAKER) (test nhya=7844) EDTA Tube U/S, [id number] 16:14:00Reason for exam:->ASCITESFINAL REPORT Ultrasound guided paracentesis, 08/09/2018. Clinical History: Ascites. Sedation: None. Taxi Driver: Cyn. Turner And Former Automatic: None. Estimated Blood Loss: < 1 cc. Specimen: 17,000 cc of serosanguineous fluid, samples sent to laboratory. Technique: Informed consent was obtained. The risks of pain, bleeding, infection, bowel perforation, injury to adjacent structures, and adverse medication reactions were discussed with the patient. After informed consent was obtained, the patient's abdomen was scanned. The right lower quadrant of the abdomen was selected for paracentesis. After the largest fluid pocket area was marked, and the anterior abdominal wall was evaluated with color Doppler to exclude presence of blood vessels traversing the area, the skin was prepped and draped in the usual sterile manner. After local anesthesia was achieved with 1% lidocaine, a 5 Mal[place]ian one-step catheter was advanced into the peritoneal cavity under ultrasound guidance. After completion of drainage, the catheter was removed. There was no evidence of complication. Patient Disposition: The patient was discharged from the ultrasound department after the paracentesis, in good condition. Impressio n:Successful ultrasound guided paracentesis. Signed: Damion Holt MDReport Tayler ified Date/Time: 08/09/2018 16:14:35 Reading Location: [address] Ultrasound Reading Room 0 4:14 PM [id number] 10:09:00* Test Item Value Reference Range Comments LIPASE (BEAKER) (test woxx=054) 15 U/L 8-78 BASIC METABOLIC [id number] 10:09:00* Test Item Value Reference Range Comments SODIUM (BEAKER) (test sdji=891) 133 meq/L 136-145 POTASSIUM (BEAKER) (test iyvs=680) 4.4 meq/L 3.5-5.1 CHLORIDE (BEAKER) (test rmvb=131) 109 meq/L 98-107 CO2 (BEAKER) (test poki=669) 17 meq/L 22-29 BLOOD UREA NITROGEN (BEAKER) (test gspg=232) 34 mg/dL 7-21 CREATININE (BEAKER) (test oqpv=322) 1.43 mg/dL 0.57-1.25 GLUCOSE RANDOM (BEAKER) (test xthf=267) 258 mg/dL 70-105 CALCIUM (BEAKER) (test hzru=745) 8.4 mg/dL 8.4-10.2 EGFR (BEAKER) (test tmer=2285) 52 mL/min/1.73 sq m ESTIMATED GFR IS NOT ACCURATE CREATININE CLEARANCE IN PREDICTING GLOMERULAR FILTRATION RATE. ESTIMATED GFR IS NOT APPLICABLE FOR DIALYSIS PATIENTS. HEPATIC FUNCTION [id number] 10:09:00* Test Item Value Reference Range Comments TOTAL PROTEIN (BEAKER) (test jifk=895) 6.4 gm/dL 6.0-8.3 ALBUMIN (BEAKER) (test jzgt=2600) 2.9 g/dL 3.5-5.0 BILIRUBIN TOTAL (BEAKER) (test aing=810) 1.0 mg/dL 0.2-1.2 BILIRUBIN DIRECT (BEAKER) (test bjly=723) 0.8 mg/dL 0.1-0.5 ALKALINE PHOSPHATASE (BEAKER) (test jctl=946) 341 U/L 40-150 AST (SGOT) (BEAKER) (test ebmf=063) 38 U/L 5-34 ALT (SGPT) (BEAKER) (test pbsq=423) 32 U/L 6-55 CBC W/PLT COUNT & AUTO [id number] 09:55:00* Test Item Value Reference Range Comments WHITE BLOOD CELL COUNT (BEAKER) (test kviz=013) 4.0 K/ L 3.5-10.5 RED BLOOD CELL COUNT (BEAKER) (test iazh=518) 3.24 M/ L 4.63-6.08 HEMOGLOBIN (BEAKER) (test guve=036) 10.1 GM/DL 13.7-17.5 HEMATOCRIT (BEAKER) (test bxub=019) 30.7 % 40.1-51.0 MEAN CORPUSCULAR VOLUME (BEAKER) (test puol=374) 94.8 fL 79.0-92.2 MEAN CORPUSCULAR HEMOGLOBIN (BEAKER) (test xfrr=386) 31.2 pg 25.7-32.2 MEAN CORPUSCULAR HEMOGLOBIN CONC (BEAKER) (test znpt=312) 32.9 GM/DL 32.3-36.5 RED CELL DISTRIBUTION WIDTH (BEAKER) (test tubt=293) 15.4 % 11.6-14.4 PLATELET COUNT (BEAKER) (test wvns=634) 101 K/CU MM 150-450 MEAN PLATELET VOLUME (BEAKER) (test rqiu=984) 10.7 fL 9.4-12.4 NUCLEATED RED BLOOD CELLS (BEAKER) (test nxbh=687) 0 /100 WBC 0-0 NEUTROPHILS RELATIVE PERCENT (BEAKER) (test excr=264) 77 % LYMPHOCYTES RELATIVE PERCENT (BEAKER) (test bpwz=213) 9 % MONOCYTES RELATIVE PERCENT (BEAKER) (test zemh=258) 8 % EOSINOPHILS RELATIVE PERCENT (BEAKER) (test etvv=643) 4 % BASOPHILS RELATIVE PERCENT (BEAKER) (test ifzn=067) 1 % NEUTROPHILS ABSOLUTE COUNT (BEAKER) (test akwg=458) 3.09 K/ L 1.78-5.38 LYMPHOCYTES ABSOLUTE COUNT (BEAKER) (test pdbe=835) 0.37 K/ L 1.32-3.57 MONOCYTES ABSOLUTE COUNT (BEAKER) (test qttv=482) 0.32 K/ L 0.30-0.82 EOSINOPHILS ABSOLUTE COUNT (BEAKER) (test uvxz=200) 0.15 K/ L 0.04-0.54 BASOPHILS ABSOLUTE COUNT (BEAKER) (test uszm=949) 0.03 K/ L 0.01-0.08 IMMATURE GRANULOCYTES-RELATIVE PERCENT (BEAKER) (test kpzt=2699) 1 % 0-1 [id number] 09:53:00* Test Item Value Reference Range Comments PROTIME (BEAKER) (test jzts=825) 15.5 seconds 11.7-14.7 INR (BEAKER) (test rekk=767) 1.2 <=5.9 PARTIAL THROMBOPLASTIN TIME (BEAKER) (test icys=658) 33.9 seconds 22.5-36.0 RECOMMENDED COUMADIN/WARFARIN INR THERAPY RANGESSTANDARD DOSE: 2.0 - 3.0 Inclu sun: PROPHYLAXIS for venous thrombosis, systemic embolization; TREATMENT for santo ous thrombosis and/or pulmonary embolus.HIGH RISK: Target INR is 2.5-3.5 for pat ients with mechanical heart valves.BODY FLUID CELL COUNT WITH DIFFERENTIAL 2018-08-02 17:47:00* Test Item Value Reference Range Comments APPEARANCE FLUID (BEAKER) (test vvqv=368) Clear Clear COLOR FLUID (BEAKER) (test pvvp=503) Straw Colorless, Straw RBC FLUID (BEAKER) (test ipqk=709) 95 /cu mm <=1 ADJUSTED WBC FLUID (BEAKER) (test cpem=1012) 63 /cu mm <=5 LINING CELLS (BEAKER) (test jahe=5973) 0 /cu mm <=1 NEUTROPHILS FLUID (BEAKER) (test jlwl=3048) 2 % LYMPHS FLUID (BEAKER) (test dsts=215) 24 % MONO/MACROPHAGE FLUID (BEAKER) (test cjmq=128) 74 % EOSINOPHILS FLUID (BEAKER) (test bdav=059) 0 % BASO FLUID (BEAKER) (test cjnc=051) 0 % CONTAINER BODY FLUID (BEAKER) (test fqmo=1914) EDTA Tube U/S, [id number] 14:46:00LIMIT PARACENTESIS to 3 to 5 LITERS twice weeklyAdminister 200 mL of albumin 25% (50 grams) IV x1 after paracentesis if 3 or more liters removed.Send ascitic fluid for cell count and differential.Reason for Exam:->AscitesFINAL REPORT HISTORY : Ascites Technique/findings:Informed written consent was obtained. Discussion of risks, benefits, and alternatives were made with the patient. The patient expressed understanding and agreed to proceed. A universal timeout was performed prior to starting the procedure. Initial ultrasound images demonstrate a large volume of ascites. A pocket of fluid was identified in the right lower quadrant of the abdomen. This area was marked. The area was prepped and draped in the usual sterile fashion. 1% lidocaine was applied to the skin and deep soft tissues. A 5 [place]ian one-step catheter was inserted and removed from the peritoneal space and approximately 5.0 liters of clear yellow fluid was aspirated from the abdomen. Specimens were collected for the lab. There were no immediate complications. Impression: Successful ultrasound guided paracentesis with aspiration of 5.0 liters of fluid. Signed: Dionicio Song MDReport Verified Date/Time: 08/02/2018 14:46:51 Reading Location: [address] Ultrasound Reading Room U/S, [id number] 17:52:00Reason for exam:->abd painShould this be performed at the bedside?->NoFINAL REPORT Paracentesis: Performing MD: Joselin Hutson M.D.Preoperative Diagnosis:AscitesPostoperative Diagnosis: AscitesAssistant: noneSpecimen: As requestedEstimated Blood Loss: less than 10 ccComplications: noneAnesthesia: local 2% subcutaneously at the insertion site Grafts or Implants: noneModality: sonographySedation: noneApproach: Right lower quadrant, anterior abdominal wall Technique: After informed written consent was obtained, the patient was prepped and draped in the usual sterile manner. Access was obtained using sonographic guidance. Images documented fluid. The images were saved to PACS. The right lower quadrant anterior abdominal wall was instrumented. A small bore catheter was advanced into the peritoneal space. The patient tolerated the procedure well. Impression:Successful, uncomplicated ultrasound guided paracentesis of the right lower quadrant peritoneal space. 17,300 cc of Share[place] low fluid was removed. Signed: Joselin Hutson Verified Date/Time: 07/30/2018 17:52:31 Reading Location: [address] Ultrasound Reading Room C METABOLIC [id number] 11:52:00* Test Item Value Reference Range Comments SODIUM (BEAKER) (test wviv=114) 133 meq/L 136-145 POTASSIUM (BEAKER) (test bsaf=741) 4.1 meq/L 3.5-5.1 CHLORIDE (BEAKER) (test vxvq=593) 110 meq/L 98-107 CO2 (BEAKER) (test nrku=893) 16 meq/L 22-29 BLOOD UREA NITROGEN (BEAKER) (test eqem=965) 41 mg/dL 7-21 CREATININE (BEAKER) (test wrxb=371) 1.34 mg/dL 0.57-1.25 GLUCOSE RANDOM (BEAKER) (test miww=664) 118 mg/dL 70-105 CALCIUM (BEAKER) (test xzvd=970) 8.9 mg/dL 8.4-10.2 EGFR (BEAKER) (test xjyh=9934) 56 mL/min/1.73 sq m ESTIMATED GFR IS NOT ACCURATE CREATININE CLEARANCE IN PREDICTING GLOMERULAR FILTRATION RATE. ESTIMATED GFR IS NOT APPLICABLE FOR DIALYSIS PATIENTS. PT/[id number] 11:40:00* Test Item Value Reference Range Comments PROTIME (BEAKER) (test uebf=392) 15.3 seconds 11.7-14.7 INR (BEAKER) (test ngas=715) 1.2 <=5.9 PARTIAL THROMBOPLASTIN TIME (BEAKER) (test nrrx=601) 34.4 seconds 22.5-36.0 RECOMMENDED COUMADIN/WARFARIN INR THERAPY RANGESSTANDARD DOSE: 2.0 - 3.0 Inclu sun: PROPHYLAXIS for venous thrombosis, systemic embolization; TREATMENT for santo ous thrombosis and/or pulmonary embolus.HIGH RISK: Target INR is 2.5-3.5 for pat ients with mechanical heart valves.CBC W/PLT COUNT & AUTO [id number] 11:38:00* Test Item Value Reference Range Comments WHITE BLOOD CELL COUNT (BEAKER) (test tzyt=043) 5.0 K/ L 3.5-10.5 RED BLOOD CELL COUNT (BEAKER) (test kzdb=515) 3.32 M/ L 4.63-6.08 HEMOGLOBIN (BEAKER) (test vmyh=460) 10.1 GM/DL 13.7-17.5 HEMATOCRIT (BEAKER) (test yhpt=723) 31.8 % 40.1-51.0 MEAN CORPUSCULAR VOLUME (BEAKER) (test ocje=973) 95.8 fL 79.0-92.2 MEAN CORPUSCULAR HEMOGLOBIN (BEAKER) (test fycb=419) 30.4 pg 25.7-32.2 MEAN CORPUSCULAR HEMOGLOBIN CONC (BEAKER) (test raiz=707) 31.8 GM/DL 32.3-36.5 RED CELL DISTRIBUTION WIDTH (BEAKER) (test bouz=049) 14.5 % 11.6-14.4 PLATELET COUNT (BEAKER) (test fsla=292) 91 K/CU MM 150-450 MEAN PLATELET VOLUME (BEAKER) (test ajfs=976) 11.4 fL 9.4-12.4 NUCLEATED RED BLOOD CELLS (BEAKER) (test yurb=188) 0 /100 WBC 0-0 NEUTROPHILS RELATIVE PERCENT (BEAKER) (test vnbu=612) 80 % LYMPHOCYTES RELATIVE PERCENT (BEAKER) (test fttb=360) 8 % MONOCYTES RELATIVE PERCENT (BEAKER) (test ntas=032) 7 % EOSINOPHILS RELATIVE PERCENT (BEAKER) (test vyxf=462) 3 % BASOPHILS RELATIVE PERCENT (BEAKER) (test acxu=114) 1 % NEUTROPHILS ABSOLUTE COUNT (BEAKER) (test cmru=818) 4.00 K/ L 1.78-5.38 LYMPHOCYTES ABSOLUTE COUNT (BEAKER) (test qkyt=276) 0.41 K/ L 1.32-3.57 MONOCYTES ABSOLUTE COUNT (BEAKER) (test dfya=353) 0.37 K/ L 0.30-0.82 EOSINOPHILS ABSOLUTE COUNT (BEAKER) (test pbse=394) 0.14 K/ L 0.04-0.54 BASOPHILS ABSOLUTE COUNT (BEAKER) (test rlqb=697) 0.03 K/ L 0.01-0.08 IMMATURE GRANULOCYTES-RELATIVE PERCENT (BEAKER) (test ydqc=4444) 1 % 0-1 RAD, WRIST, LEFT, COMPLETE (MIN 3 VIEWS)2018-07-29 22:00:00Reason for exam:-> injuryFINAL REPORT Left wrist dated 07/29/2018 Comment: 3 views of the left wrist were submitted for interpretation. No fracture, dislocation, or subluxation seen in the left wrist. Radiocarpal, intercarpal, carpometacarpal joints are well maintained. Soft tissue of the left wrist is unremarkable. Impression: No fracture in the left wrist. Signed: Oli Engel MDReport Verified Date/Time: 07/29/2018 22:00:36 Reading Location: [facility] [id number] Consult Reading Room TIC FUNCTION [id number] 18:11:00* Test Item Value Reference Range Comments TOTAL PROTEIN (BEAKER) (test uanq=843) 6.4 gm/dL 6.0-8.3 ALBUMIN (BEAKER) (test ocbn=0330) 3.0 g/dL 3.5-5.0 BILIRUBIN TOTAL (BEAKER) (test ajkk=779) 1.6 mg/dL 0.2-1.2 BILIRUBIN DIRECT (BEAKER) (test iroi=708) 1.2 mg/dL 0.1-0.5 ALKALINE PHOSPHATASE (BEAKER) (test ovek=614) 251 U/L 40-150 AST (SGOT) (BEAKER) (test dwmf=085) 33 U/L 5-34 ALT (SGPT) (BEAKER) (test bzjx=894) 21 U/L 6-55 BASIC METABOLIC [id number] 18:11:00* Test Item Value Reference Range Comments SODIUM (BEAKER) (test zoka=929) 135 meq/L 136-145 POTASSIUM (BEAKER) (test zsad=221) 4.4 meq/L 3.5-5.1 CHLORIDE (BEAKER) (test wfzn=220) 110 meq/L 98-107 CO2 (BEAKER) (test avkl=240) 21 meq/L 22-29 BLOOD UREA NITROGEN (BEAKER) (test kayc=699) 40 mg/dL 7-21 CREATININE (BEAKER) (test luin=356) 1.35 mg/dL 0.57-1.25 GLUCOSE RANDOM (BEAKER) (test ntxe=651) 84 mg/dL 70-105 CALCIUM (BEAKER) (test zeho=959) 8.8 mg/dL 8.4-10.2 EGFR (BEAKER) (test nngt=6181) 56 mL/min/1.73 sq m ESTIMATED GFR IS NOT ACCURATE CREATININE CLEARANCE IN PREDICTING GLOMERULAR FILTRATION RATE. ESTIMATED GFR IS NOT APPLICABLE FOR DIALYSIS PATIENTS. PT/[id number] 18:09:00* Test Item Value Reference Range Comments PROTIME (BEAKER) (test exeg=134) 15.9 seconds 11.7-14.7 INR (BEAKER) (test pbbp=248) 1.2 <=5.9 PARTIAL THROMBOPLASTIN TIME (BEAKER) (test opze=947) 37.0 seconds 22.5-36.0 RECOMMENDED COUMADIN/WARFARIN INR THERAPY RANGESSTANDARD DOSE: 2.0 - 3.0 Inclu sun: PROPHYLAXIS for venous thrombosis, systemic embolization; TREATMENT for santo ous thrombosis and/or pulmonary embolus.HIGH RISK: Target INR is 2.5-3.5 for pat ients with mechanical heart valves.CBC W/PLT COUNT & AUTO [id number] 17:59:00* Test Item Value Reference Range Comments WHITE BLOOD CELL COUNT (BEAKER) (test rxou=502) 4.8 K/ L 3.5-10.5 RED BLOOD CELL COUNT (BEAKER) (test thft=930) 3.19 M/ L 4.63-6.08 HEMOGLOBIN (BEAKER) (test cedd=248) 9.7 GM/DL 13.7-17.5 HEMATOCRIT (BEAKER) (test mhol=698) 30.2 % 40.1-51.0 MEAN CORPUSCULAR VOLUME (BEAKER) (test vphj=878) 94.7 fL 79.0-92.2 MEAN CORPUSCULAR HEMOGLOBIN (BEAKER) (test jkou=337) 30.4 pg 25.7-32.2 MEAN CORPUSCULAR HEMOGLOBIN CONC (BEAKER) (test wrrx=130) 32.1 GM/DL 32.3-36.5 RED CELL DISTRIBUTION WIDTH (BEAKER) (test cebi=831) 14.3 % 11.6-14.4 PLATELET COUNT (BEAKER) (test ulmj=928) 100 K/CU MM 150-450 MEAN PLATELET VOLUME (BEAKER) (test brrs=791) 10.8 fL 9.4-12.4 NUCLEATED RED BLOOD CELLS (BEAKER) (test dqia=439) 0 /100 WBC 0-0 NEUTROPHILS RELATIVE PERCENT (BEAKER) (test sevs=132) 82 % LYMPHOCYTES RELATIVE PERCENT (BEAKER) (test sdlp=492) 8 % MONOCYTES RELATIVE PERCENT (BEAKER) (test ukvu=630) 7 % EOSINOPHILS RELATIVE PERCENT (BEAKER) (test ujqy=447) 3 % BASOPHILS RELATIVE PERCENT (BEAKER) (test jipk=565) 1 % NEUTROPHILS ABSOLUTE COUNT (BEAKER) (test usdj=368) 3.95 K/ L 1.78-5.38 LYMPHOCYTES ABSOLUTE COUNT (BEAKER) (test lylb=186) 0.37 K/ L 1.32-3.57 MONOCYTES ABSOLUTE COUNT (BEAKER) (test qcfk=443) 0.33 K/ L 0.30-0.82 EOSINOPHILS ABSOLUTE COUNT (BEAKER) (test ylny=087) 0.15 K/ L 0.04-0.54 BASOPHILS ABSOLUTE COUNT (BEAKER) (test fbsv=879) 0.03 K/ L 0.01-0.08 IMMATURE GRANULOCYTES-RELATIVE PERCENT (BEAKER) (test whqi=5398) 0 % 0-1 BODY FLUID CULTURE + GRAM [id number] 11:48:00* Test Item Value Reference Range Comments CULTURE (BEAKER) (test gdqw=7012) No growth GRAM STAIN RESULT (BEAKER) (test wzkg=1678) <1+ White blood cells seen GRAM STAIN RESULT (BEAKER) (test fpwz=88400) No organisms seen BODY FLUID CELL COUNT WITH [id number] 00:35:00* Test Item Value Reference Range Comments APPEARANCE FLUID (BEAKER) (test sytr=197) Clear Clear COLOR FLUID (BEAKER) (test pvxf=705) Yellow Colorless, Straw RBC FLUID (BEAKER) (test psrq=469) 56 /cu mm <=1 ADJUSTED WBC FLUID (BEAKER) (test oovc=6342) 48 /cu mm <=5 LINING CELLS (BEAKER) (test xyze=4143) 10 /cu mm <=1 NEUTROPHILS FLUID (BEAKER) (test mcmp=7865) 11 % LYMPHS FLUID (BEAKER) (test kdcc=713) 29 % MONO/MACROPHAGE FLUID (BEAKER) (test znfu=264) 60 % EOSINOPHILS FLUID (BEAKER) (test anon=570) 0 % BASO FLUID (BEAKER) (test drff=866) 0 % CONTAINER BODY FLUID (BEAKER) (test aako=4115) EDTA Tube B-TYPE NATRIURETIC FACTOR (BNP)2018-07-25 19:51:00* Test Item Value Reference Range Comments B-TYPE NATRIURETIC PEPTIDE (BEAKER) (test vvrq=315) 63 pg/mL 0-100 TROPONIN [id number] 19:51:00* Test Item Value Reference Range Comments TROPONIN I (BEAKER) (test juss=892) < ng/mL 0.00-0.03 Troponin I (TnI) levels must be interpreted in the context of the presenting sym ptoms and the clinical findings. Elevated TnI levels indicate myocardial damage, but are not specific for ischemic heart disease. Elevated TnI levels are seen in patients with other cardiac conditions (including myocarditis and congestive h eart failure), and slight TnI elevations occur in patients with other conditions , including sepsis, renal failure, acidosis, acute neurological disease, and per sistent tachyarrhythmia.CBC W/PLT COUNT & AUTO [id number] 19:48:00* Test Item Value Reference Range Comments WHITE BLOOD CELL COUNT (BEAKER) (test cyza=360) 4.1 K/ L 3.5-10.5 RED BLOOD CELL COUNT (BEAKER) (test pkhi=099) 3.06 M/ L 4.63-6.08 HEMOGLOBIN (BEAKER) (test ndxp=846) 9.6 GM/DL 13.7-17.5 HEMATOCRIT (BEAKER) (test bymt=745) 29.3 % 40.1-51.0 MEAN CORPUSCULAR VOLUME (BEAKER) (test brid=737) 95.8 fL 79.0-92.2 MEAN CORPUSCULAR HEMOGLOBIN (BEAKER) (test bhhh=118) 31.4 pg 25.7-32.2 MEAN CORPUSCULAR HEMOGLOBIN CONC (BEAKER) (test htlb=542) 32.8 GM/DL 32.3-36.5 RED CELL DISTRIBUTION WIDTH (BEAKER) (test yywr=712) 14.5 % 11.6-14.4 PLATELET COUNT (BEAKER) (test dltr=698) 92 K/CU MM 150-450 MEAN PLATELET VOLUME (BEAKER) (test qzje=951) 11.2 fL 9.4-12.4 NUCLEATED RED BLOOD CELLS (BEAKER) (test ipci=783) 0 /100 WBC 0-0 NEUTROPHILS RELATIVE PERCENT (BEAKER) (test tngg=554) 81 % LYMPHOCYTES RELATIVE PERCENT (BEAKER) (test fjow=318) 8 % MONOCYTES RELATIVE PERCENT (BEAKER) (test jgpa=719) 7 % EOSINOPHILS RELATIVE PERCENT (BEAKER) (test ykcz=509) 2 % BASOPHILS RELATIVE PERCENT (BEAKER) (test axuc=055) 1 % NEUTROPHILS ABSOLUTE COUNT (BEAKER) (test zari=023) 3.28 K/ L 1.78-5.38 LYMPHOCYTES ABSOLUTE COUNT (BEAKER) (test tfqf=572) 0.33 K/ L 1.32-3.57 MONOCYTES ABSOLUTE COUNT (BEAKER) (test ddzr=930) 0.30 K/ L 0.30-0.82 EOSINOPHILS ABSOLUTE COUNT (BEAKER) (test yyzn=951) 0.09 K/ L 0.04-0.54 BASOPHILS ABSOLUTE COUNT (BEAKER) (test axvf=467) 0.03 K/ L 0.01-0.08 IMMATURE GRANULOCYTES-RELATIVE PERCENT (BEAKER) (test bduw=9720) 1 % 0-1 HEPATIC FUNCTION [id number] 19:45:00* Test Item Value Reference Range Comments TOTAL PROTEIN (BEAKER) (test kpxm=888) 6.2 gm/dL 6.0-8.3 ALBUMIN (BEAKER) (test tyld=4304) 2.8 g/dL 3.5-5.0 BILIRUBIN TOTAL (BEAKER) (test avhx=688) 1.6 mg/dL 0.2-1.2 BILIRUBIN DIRECT (BEAKER) (test sbcc=324) 1.1 mg/dL 0.1-0.5 ALKALINE PHOSPHATASE (BEAKER) (test envu=191) 279 U/L 40-150 AST (SGOT) (BEAKER) (test tykl=045) 30 U/L 5-34 ALT (SGPT) (BEAKER) (test iqnp=936) 19 U/L 6-55 BASIC METABOLIC [id number] 19:45:00* Test Item Value Reference Range Comments SODIUM (BEAKER) (test ahmk=479) 135 meq/L 136-145 POTASSIUM (BEAKER) (test pcuz=873) 3.9 meq/L 3.5-5.1 CHLORIDE (BEAKER) (test vdpj=959) 110 meq/L 98-107 CO2 (BEAKER) (test ruiz=714) 18 meq/L 22-29 BLOOD UREA NITROGEN (BEAKER) (test dnqo=952) 31 mg/dL 7-21 CREATININE (BEAKER) (test mfmb=398) 1.31 mg/dL 0.57-1.25 GLUCOSE RANDOM (BEAKER) (test qjjm=172) 160 mg/dL 70-105 CALCIUM (BEAKER) (test ampo=914) 8.4 mg/dL 8.4-10.2 EGFR (BEAKER) (test gscx=3991) 58 mL/min/1.73 sq m ESTIMATED GFR IS NOT ACCURATE CREATININE CLEARANCE IN PREDICTING GLOMERULAR FILTRATION RATE. ESTIMATED GFR IS NOT APPLICABLE FOR DIALYSIS PATIENTS. [id number] 19:43:00* Test Item Value Reference Range Comments PROTIME (BEAKER) (test urcw=115) 16.1 seconds 11.7-14.7 INR (BEAKER) (test fvsh=028) 1.3 <=5.9 PARTIAL THROMBOPLASTIN TIME (BEAKER) (test nrds=616) 34.5 seconds 22.5-36.0 RECOMMENDED COUMADIN/WARFARIN INR THERAPY RANGESSTANDARD DOSE: 2.0 - 3.0 Inclu sun: PROPHYLAXIS for venous thrombosis, systemic embolization; TREATMENT for santo ous thrombosis and/or pulmonary embolus.HIGH RISK: Target INR is 2.5-3.5 for pat ients with mechanical heart valves.RAD, CHEST, 1 VIEW, NON [id number] 19:11:00Reason for exam:->sobShould this be performed at the bedside?->NoFINAL REPORT Chest one view AP 07/25/2018 7:10 PM CLINICAL INDICATION: sob COMPARISON: 05/07/2018 IMPRESSION: There is a moderate volume r ight pleural effusion. Opacity in the right mid and lower lung suggests a combin ation diaphragmatic elevation and atelectasis. Pneumonia should be excluded clin ically. The left lung is clear. Cardiomediastinal contours are stable. The centr al pulmonary vasculature is not engorged. Signed: Bob Guzmaneport Verif ied Date/Time: 07/25/2018 19:11:02 Reading Location: [facility] Room 07: 11 PM BODY FLUID CELL COUNT WITH [id number] 18:15:00* Test Item Value Reference Range Comments APPEARANCE FLUID (BEAKER) (test llby=500) Slightly Hazy Clear COLOR FLUID (BEAKER) (test jlya=179) Yellow Colorless, Straw RBC FLUID (BEAKER) (test nbin=948) 60 /cu mm <=1 ADJUSTED WBC FLUID (BEAKER) (test lcnw=4558) 30 /cu mm <=5 LINING CELLS (BEAKER) (test grqz=6617) 0 /cu mm <=1 NEUTROPHILS FLUID (BEAKER) (test mvei=7850) 7 % LYMPHS FLUID (BEAKER) (test jxtb=179) 60 % MONO/MACROPHAGE FLUID (BEAKER) (test fkox=239) 33 % EOSINOPHILS FLUID (BEAKER) (test hpio=248) 0 % BASO FLUID (BEAKER) (test qcya=782) 0 % CONTAINER BODY FLUID (BEAKER) (test zzho=7427) Sterile Vial U/S, [id number] 11:15:00LIMIT PARACENTESIS to 5 LITERSAdminister 200 mL of albumin 25% (50 grams) IV x1 after paracentesis if 3 or more liters removed.Send ascitic fluid for cell count and differential.Reason for Exam:-> cirrhosis,ascitisFINAL REPORT Paracentesis: Performing MD: Joselin Hutson M.D.Preoperative Diagnosis:AscitesPostoperative Diagnosis: AscitesAssistant: noneSpecimen: As requestedEstimated Blood Loss: less than 10 ccComplications: noneAnesthesia: local 2% subcutaneously at the insertion site Grafts or Implants: noneModality: sonographySedation: noneApproach: Right lower quadrant, anterior abdominal wall Technique: After informed written consent was obtained, the patient was prepped and draped in the usual sterile manner. Access was obtained using sonographic guidance. Images documented fluid. The images were saved to PACS. The right lower quadrant anterior abdominal wall was instrumented. A small bore catheter was advanced into the peritoneal space. The patient tolerated the procedure well. Impression:Successful, uncomplicated ultrasound guided paracentesis of the right lower quadrant peritoneal space. 5000 cc of serous fluid was removed. Signed: Joselin Hutson MDReport Verified Date/Time: 07/19/2018 11:15:10 Reading Location: [place] [id number] Ultrasound Reading Room U/S, [id number] 20:35:00LIMIT PARACENTESIS to 5 LITERSAdminister 200 mL of albumin 25% (50 grams) IV x1 after paracentesis if 3 or more liters removed.Send ascitic fluid for cell count and differential.Reason for Exam:->cirrhosis,ascitisFINAL REPORT PROCEDURE: Ultrasound-guided paracentesis. INDICATION: Ascites. DESCRIPTION: After obtaining informed written consent, ultrasound scan of the abdomen identified ascites in the right lower quadrant. The overlying skin was prepped and draped in the usual, sterile fashion and local 1% lidocaine anesthesia was administered. A 5 Maldivian catheter was advanced into the peritoneal cavity and 5000 mL of clear yellow fluid was removed. The catheter wa s removed without immediate complication. Samples were sent for analysis. IMPRES VY:Uncomplicated ultrasound-guided paracentesis with 5000 mL of fluid removed. Signed: Lucina Stephens MDReport Verified Date/Time: 07/11/2018 20:35:34 Reading Lo cation: [facility] B1 P006J Ultrasound Reading Room FLUID CELL COUNT WITH DIFFERENTIAL 2018-07-11 20:05:00* Test Item Value Reference Range Comments APPEARANCE FLUID (BEAKER) (test nhxq=258) Clear Clear COLOR FLUID (BEAKER) (test zptd=272) Yellow Colorless, Straw RBC FLUID (BEAKER) (test wele=437) 253 /cu mm <=1 ADJUSTED WBC FLUID (BEAKER) (test wtnd=8817) 69 /cu mm <=5 LINING CELLS (BEAKER) (test jqim=0666) 0 /cu mm <=1 NEUTROPHILS FLUID (BEAKER) (test ymwc=8069) 4 % LYMPHS FLUID (BEAKER) (test dsxe=483) 23 % MONO/MACROPHAGE FLUID (BEAKER) (test vijn=208) 73 % EOSINOPHILS FLUID (BEAKER) (test haob=099) 0 % BASO FLUID (BEAKER) (test dtzt=292) 0 % CONTAINER BODY FLUID (BEAKER) (test iglo=1646) EDTA Tube [id number] 10:35:00* Test Item Value Reference Range Comments PROTIME (BEAKER) (test vmtf=787) 16.4 seconds 11.7-14.7 INR (BEAKER) (test qzvv=827) 1.3 <=5.9 PARTIAL THROMBOPLASTIN TIME (BEAKER) (test ffmp=085) 32.8 seconds 22.5-36.0 RECOMMENDED COUMADIN/WARFARIN INR THERAPY RANGESSTANDARD DOSE: 2.0 - 3.0 Inclu sun: PROPHYLAXIS for venous thrombosis, systemic embolization; TREATMENT for santo ous thrombosis and/or pulmonary embolus.HIGH RISK: Target INR is 2.5-3.5 for pat ients with mechanical heart valves.PLATELET [id number] 10:20:00* Test Item Value Reference Range Comments PLATELET COUNT (BEAKER) (test xjof=588) 82 K/CU MM 150-450 BODY FLUID CELL COUNT WITH [id number] 20:56:00* Test Item Value Reference Range Comments APPEARANCE FLUID (BEAKER) (test jcqs=824) Slightly Hazy Clear COLOR FLUID (BEAKER) (test knbk=197) Yellow Colorless, Straw RBC FLUID (BEAKER) (test zdrf=092) 140 /cu mm <=1 ADJUSTED WBC FLUID (BEAKER) (test uiat=5259) 88 /cu mm <=5 LINING CELLS (BEAKER) (test txmg=1189) 2 /cu mm <=1 NEUTROPHILS FLUID (BEAKER) (test ewms=0350) 7 % LYMPHS FLUID (BEAKER) (test pxfz=271) 26 % MONO/MACROPHAGE FLUID (BEAKER) (test lrat=185) 67 % EOSINOPHILS FLUID (BEAKER) (test ezuv=740) 0 % BASO FLUID (BEAKER) (test lnzl=340) 0 % CONTAINER BODY FLUID (BEAKER) (test czeo=2110) EDTA Tube U/S, [id number] 12:32:00LIMIT PARACENTESIS to 5 LITERSAdminister 200 mL of albumin 25% (50 grams) IV x1 after paracentesis if 3 or more liters removed.Send ascitic fluid for cell count and differential.Reason for Exam:-> cirrhosis,ascitisFINAL REPORT HISTORY : Ascites Technique/findings:Informed written consent was obtained. Discussion of risks, benefits, and alternatives were made with the patient. The patient expressed understanding and agreed to proceed. A universal timeout was performed prior to starting the procedure. Initial ultrasound images demonstrate large volume of ascites. A pocket of fluid was identified in the right lower quadrant of the abdomen. This area was marked. The area was prepped and draped in the usual sterile fashion. 1% lidocaine was applied to the skin and deep soft tissues. A 5 Maldivian one-step catheter was inserted and removed from the peritoneal space and approximately 5.0 liters of clear yellow fluid was aspirated from the abdomen. Specimens were collected for the lab. There were no immediate complications. Impression: Successful ultrasound guided paracentesis with aspiration of 5.0 liters of fluid. Signed: Dionicio Song MDReport Verified Date/Time: 07/05/2018 12:32:17 Reading Location: [facility] P006J Ultrasound Reading Room FLUID CELL COUNT WITH [id number] 17:12:00* Test Item Value Reference Range Comments APPEARANCE FLUID (BEAKER) (test yjlg=454) Clear Clear COLOR FLUID (BEAKER) (test izmp=906) Yellow Colorless, Straw RBC FLUID (BEAKER) (test vhzr=200) 50 /cu mm <=1 ADJUSTED WBC FLUID (BEAKER) (test slqk=9491) 110 /cu mm <=5 LINING CELLS (BEAKER) (test quvs=7452) 0 /cu mm <=1 NEUTROPHILS FLUID (BEAKER) (test cpeq=6095) 5 % LYMPHS FLUID (BEAKER) (test kumk=704) 33 % MONO/MACROPHAGE FLUID (BEAKER) (test owhc=888) 62 % EOSINOPHILS FLUID (BEAKER) (test ekqx=916) 0 % BASO FLUID (BEAKER) (test haok=968) 0 % CONTAINER BODY FLUID (BEAKER) (test rpph=1744) EDTA Tube U/S, [id number] 14:20:00LIMIT PARACENTESIS to 5 LITERSAdminister 200 mL of albumin 25% (50 grams) IV x1 after paracentesis if 3 or more liters removed.Send ascitic fluid for cell count and differential.Reason for Exam:-> CIRRHOSISFINAL REPORT HISTORY : Ascites Technique/findings:Informed written consent was obtained. Discussion of risks, benefits, and alternatives were made with the patient. The patient expressed understanding and agreed to proceed. A universal timeout was performed prior to starting the procedure. Initial ultrasound images demonstrate large volume of ascites. A pocket of fluid was identified in the right lower quadrant of the abdomen. This area was marked. The area was prepped and draped in the usual sterile fashion. 1% lidocaine was applied to the skin and deep soft tissues. A 5 Maldivian one-step catheter was inserted and removed from the peritoneal space and approximately 5.0 liters of clear yellow fluid was aspirated from the abdomen. Specimens were collected for the lab. There were no immediate complications. Impression: Successful ultrasound guided volume limited paracentesis with aspiration of 5.0 liters of fluid. Signed: Dionicio Song Verified Date/Time: 06/27/2018 14:20:16 Reading Location: [address] Ultrasound Reading Room U/S, [id number] 11:11:00Administer 200 mL of albumin 25% (50 grams) IV x1 after paracentesis if 3 or more liters removed.Send ascitic fluid for cell count and differential.Reason for Exam:->AscitesFINAL REPORT Paracentesis: Performing MD: Sera GoelPreoperative Diagnosis:AscitesPostoperative Diagnosis: AscitesAssistant: noneS pecimen: As requestedEstimated Blood Loss: less than 10 ccComplications: noneAne sthesia: local 2% subcutaneously at the insertion site Grafts or Implants: noneM odality: sonographySedation: noneApproach: Right lower quadrant, anterior abdomi nal wall Technique: After informed written consent was obtained, the patient wa s prepped and draped in the usual sterile manner. Access was obtained using son ographic guidance. Images documented fluid. The images were saved to PACS. Th e right lower quadrant anterior abdominal wall was instrumented. A small bore catheter was advanced into the peritoneal space. The patient tolerated the pro cedure well. Impression:Successful, uncomplicated ultrasound guided paracente sis of the right lower quadrant peritoneal space. 8200 cc of serous fluid was r emoved. Signed: Joselin Hutson Verified Date/Time: 06/21/2018 11:11 :31 Reading Location: [facility] [id number] Ultrasound Reading Room Electronically s igned by: JOSELIN HUTSON M.D. on 06/21/2018 11:11 AM AFB CULTURE + SMEAR 2018-06-15 21:53:00* Test Item Value Reference Range Comments CULTURE (BEAKER) (test jwqh=9915) No acid-fast bacilli isolated in 42 days AFB SMEAR (BEAKER) (test jtih=973) No acid fast bacilli seen BODY FLUID CELL COUNT WITH [id number] 19:40:00* Test Item Value Reference Range Comments APPEARANCE FLUID (BEAKER) (test kpcl=478) Slightly Hazy Clear COLOR FLUID (BEAKER) (test ksbx=839) Yellow Colorless, Straw RBC FLUID (BEAKER) (test wuux=955) 130 /cu mm <=1 ADJUSTED WBC FLUID (BEAKER) (test rpae=6121) 196 /cu mm <=5 LINING CELLS (BEAKER) (test npyx=2048) 4 /cu mm <=1 NEUTROPHILS FLUID (BEAKER) (test eoxa=1634) 5 % LYMPHS FLUID (BEAKER) (test vhxb=616) 26 % MONO/MACROPHAGE FLUID (BEAKER) (test jaaa=244) 69 % EOSINOPHILS FLUID (BEAKER) (test twca=004) 0 % BASO FLUID (BEAKER) (test zpih=620) 0 % CONTAINER BODY FLUID (BEAKER) (test vqlq=8128) EDTA Tube U/S, [id number] 15:39:00Administer 200 mL of albumin 25% (50 grams) IV x1 after paracentesis if 3 or more liters removed.Send ascitic fluid for cell count and differential.Reason for Exam:->AscitesFINAL REPORT Paracentesis: Performing MD: Joselin Hutson M.D.Preoperative Diagnosis:AscitesPostoperative Diagnosis: AscitesAssistant: noneSpecimen: As requestedEstimated Blood Loss: less than 10 ccComplications: noneAnesthesia: local 2% subcutaneously at the insertion site Grafts or Implants: noneModality: sonographySedation: noneApproach: Right lower quadrant, anterior abdominal wall Technique: After informed written consent was obtained, the patient was prepped and draped in the usual sterile manner. Access was obtained using sonographic guidance. Images documented fluid. The images were saved to PACS. The right lower quadrant anterior abdominal wall was instrumented. A small bore catheter was advanced into the peritoneal space. The patient tolerated the procedure well. Impression:Successful, uncomplicated ultrasound guided paracentesis of the right lower quadrant peritoneal space. 9000 cc of serous fluid was removed. Signed: Joselin Hutson MDReport Verified Date/Time: 06/14/2018 15:39:53 Reading Location: [facility] P006J Ultrasound Reading Room Electronically s igned by: JOSELIN HUTSON M.D. on 06/14/2018 03:39 PM AFB CULTURE + SMEAR 2018-06-09 16:03:00* Test Item Value Reference Range Comments CULTURE (BEAKER) (test fuyf=2854) No acid-fast bacilli isolated in 42 days AFB SMEAR (BEAKER) (test owfp=534) No acid fast bacilli seen AFB CULTURE + [id number] 16:03:00* Test Item Value Reference Range Comments CULTURE (BEAKER) (test vgyi=4445) No acid-fast bacilli isolated in 42 days AFB SMEAR (BEAKER) (test bped=258) No acid fast bacilli seen BODY FLUID CELL COUNT WITH [id number] 20:10:00* Test Item Value Reference Range Comments APPEARANCE FLUID (BEAKER) (test oxxn=453) Slightly Hazy Clear COLOR FLUID (BEAKER) (test rxob=767) Yellow Colorless, Straw RBC FLUID (BEAKER) (test gxjs=159) 70 /cu mm <=1 ADJUSTED WBC FLUID (BEAKER) (test mtvt=1839) 150 /cu mm <=5 LINING CELLS (BEAKER) (test wgnp=8207) 0 /cu mm <=1 NEUTROPHILS FLUID (BEAKER) (test nugc=3635) 4 % LYMPHS FLUID (BEAKER) (test qahi=434) 6 % MONO/MACROPHAGE FLUID (BEAKER) (test amad=211) 90 % EOSINOPHILS FLUID (BEAKER) (test iubh=549) 0 % BASO FLUID (BEAKER) (test osvm=053) 0 % CONTAINER BODY FLUID (BEAKER) (test wmnt=6671) EDTA Tube U/S, [id number] 16:26:00Administer 200 mL of albumin 25% (50 grams) IV x1 after paracentesis if 3 or more liters removed. Send ascitic fluid for cell count and differential. Reason for Exam:->Ascites, Portal HypertensionFINAL REPORT Ultrasound guided paracentesis, 06/04/2018. Clinical History: Ascites. Sedation: None. Taxi Driver: Sumeet Kelly MD [employer] Former Automatic: None. Estimated Blood Loss: < 1 cc. Specimen: 75082 cc of clear yellow fluid, samples sent to laboratory. Technique: Informed consent was obtained. The risks of pain, bleeding, infection, bowel perforation, injury to adjacent structures, and adverse medication reactions were discussed with the patient. After informed consent was obtained, the patient's abdomen was scanned. The right lower quadrant of the abdomen was tyron cted for paracentesis. After the largest fluid pocket area was marked, and the anterior abdominal wall was evaluated with color Doppler to exclude presence of blood vessels traversing the area, the skin was prepped and draped in the usual sterile manner. After local anesthesia was achieved with 1% lidocaine, a 5 Fren ch one-step catheter was advanced into the peritoneal cavity under ultrasound gu idance. After completion of drainage, the catheter was removed. There was no sloane dence of complication. Impression:Successful ultrasound guided paracentesis. S igned: Timothy Kelly MDRepst. [facility] Verified Date/Time: 06/04/2018 16:26:44 Reading Location: [facility] P006J Ultrasound Reading Room REHENSIVE METABOLIC PANEL 2018-06-04 13:25:00* Test Item Value Reference Range Comments TOTAL PROTEIN (BEAKER) (test nopr=676) 7.5 gm/dL 6.0-8.3 ALBUMIN (BEAKER) (test aiqh=7813) 3.7 g/dL 3.5-5.0 ALKALINE PHOSPHATASE (BEAKER) (test chqo=021) 1012 U/L 40-150 BILIRUBIN TOTAL (BEAKER) (test nmxr=841) 7.9 mg/dL 0.2-1.2 SODIUM (BEAKER) (test ppng=743) 136 meq/L 136-145 POTASSIUM (BEAKER) (test ahei=897) 4.9 meq/L 3.5-5.1 CHLORIDE (BEAKER) (test zbfr=019) 107 meq/L 98-107 CO2 (BEAKER) (test wbho=446) 21 meq/L 22-29 BLOOD UREA NITROGEN (BEAKER) (test dfan=891) 44 mg/dL 7-21 CREATININE (BEAKER) (test uqep=933) 1.22 mg/dL 0.57-1.25 GLUCOSE RANDOM (BEAKER) (test uclh=632) 114 mg/dL 70-105 CALCIUM (BEAKER) (test rhib=128) 9.7 mg/dL 8.4-10.2 AST (SGOT) (BEAKER) (test vizf=816) 75 U/L 5-34 ALT (SGPT) (BEAKER) (test hknt=918) 39 U/L 6-55 EGFR (BEAKER) (test vqaf=3638) 63 mL/min/1.73 sq m ESTIMATED GFR IS NOT ACCURATE CREATININE CLEARANCE IN PREDICTING GLOMERULAR FILTRATION RATE. ESTIMATED GFR IS NOT APPLICABLE FOR DIALYSIS PATIENTS. Specimen moderately ictericBILIRUBIN, [id number] 13:25:00* Test Item Value Reference Range Comments BILIRUBIN DIRECT (BEAKER) (test sfrv=705) 6.0 mg/dL 0.1-0.5 PROTHROMBIN TIME/[id number] 13:15:00* Test Item Value Reference Range Comments PROTIME (BEAKER) (test nkks=860) 16.2 seconds 11.7-14.7 INR (BEAKER) (test ccds=574) 1.3 <=5.9 RECOMMENDED COUMADIN/WARFARIN INR THERAPY RANGESSTANDARD DOSE: 2.0 - 3.0 Inclu sun: PROPHYLAXIS for venous thrombosis, systemic embolization; TREATMENT for santo ous thrombosis and/or pulmonary embolus.HIGH RISK: Target INR is 2.5-3.5 for pat ients with mechanical heart valves.CBC W/PLT COUNT & AUTO [id number] 13:15:00* Test Item Value Reference Range Comments WHITE BLOOD CELL COUNT (BEAKER) (test dnfi=271) 5.2 K/ L 3.5-10.5 RED BLOOD CELL COUNT (BEAKER) (test ltle=328) 3.15 M/ L 4.63-6.08 HEMOGLOBIN (BEAKER) (test vprr=059) 10.0 GM/DL 13.7-17.5 HEMATOCRIT (BEAKER) (test wnii=987) 31.7 % 40.1-51.0 MEAN CORPUSCULAR VOLUME (BEAKER) (test xhva=491) 100.6 fL 79.0-92.2 MEAN CORPUSCULAR HEMOGLOBIN (BEAKER) (test lmtu=236) 31.7 pg 25.7-32.2 MEAN CORPUSCULAR HEMOGLOBIN CONC (BEAKER) (test rrjs=764) 31.5 GM/DL 32.3-36.5 RED CELL DISTRIBUTION WIDTH (BEAKER) (test jssq=220) 16.2 % 11.6-14.4 PLATELET COUNT (BEAKER) (test ubxj=819) 116 K/CU MM 150-450 MEAN PLATELET VOLUME (BEAKER) (test rrzs=985) 10.8 fL 9.4-12.4 NUCLEATED RED BLOOD CELLS (BEAKER) (test zemg=453) 0 /100 WBC 0-0 NEUTROPHILS RELATIVE PERCENT (BEAKER) (test esvb=762) 82 % LYMPHOCYTES RELATIVE PERCENT (BEAKER) (test jqgy=874) 7 % MONOCYTES RELATIVE PERCENT (BEAKER) (test naxx=112) 8 % EOSINOPHILS RELATIVE PERCENT (BEAKER) (test pipn=881) 1 % BASOPHILS RELATIVE PERCENT (BEAKER) (test karj=680) 1 % NEUTROPHILS ABSOLUTE COUNT (BEAKER) (test eotc=688) 4.23 K/ L 1.78-5.38 LYMPHOCYTES ABSOLUTE COUNT (BEAKER) (test rjpa=880) 0.38 K/ L 1.32-3.57 MONOCYTES ABSOLUTE COUNT (BEAKER) (test sigc=619) 0.43 K/ L 0.30-0.82 EOSINOPHILS ABSOLUTE COUNT (BEAKER) (test kaxg=802) 0.07 K/ L 0.04-0.54 BASOPHILS ABSOLUTE COUNT (BEAKER) (test vvxf=676) 0.03 K/ L 0.01-0.08 IMMATURE GRANULOCYTES-RELATIVE PERCENT (BEAKER) (test vunq=3749) 1 % 0-1 FUNGUS CULTURE + [id number] 16:44:00* Test Item Value Reference Range Comments CULTURE (BEAKER) (test eegz=2425) No fungus isolated in 28 days FUNGUS SMEAR (BEAKER) (test ngrq=4865) No fungi seen FUNGUS CULTURE + [id number] 14:45:00* Test Item Value Reference Range Comments CULTURE (BEAKER) (test txhn=0320) No fungus isolated in 28 days FUNGUS SMEAR (BEAKER) (test cocg=6143) No fungi seen POCT-GLUCOSE [id number] 13:22:00* Test Item Value Reference Range Comments POC-GLUCOSE METER (BEAKER) (test xxtc=8624) 82 mg/dL 70-110 TESTED AT [facility] [address] [address] POCT-GLUCOSE [id number] 08:39:00* Test Item Value Reference Range Comments POC-GLUCOSE METER (BEAKER) (test webj=2821) 81 mg/dL 70-110 TESTED AT [facility] [address] [address] CALCIUM, [id number] 07:10:00* Test Item Value Reference Range Comments CALCIUM IONIZED (BEAKER) (test brni=287) 1.16 mmol/L 1.12-1.27 PH, BLOOD (BEAKER) (test gvmq=5206) 7.33 [id number] 06:28:00* Test Item Value Reference Range Comments PHOSPHORUS (BEAKER) (test wrtn=076) 3.2 mg/dL 2.3-4.7 [id number] 06:28:00* Test Item Value Reference Range Comments MAGNESIUM (BEAKER) (test tsrt=219) 2.2 mg/dL 1.6-2.6 COMPREHENSIVE METABOLIC [id number] 06:28:00* Test Item Value Reference Range Comments TOTAL PROTEIN (BEAKER) (test kluf=885) 6.3 gm/dL 6.0-8.3 ALBUMIN (BEAKER) (test vfye=1899) 3.7 g/dL 3.5-5.0 ALKALINE PHOSPHATASE (BEAKER) (test xwjm=432) 369 U/L 40-150 BILIRUBIN TOTAL (BEAKER) (test ttqg=033) 6.7 mg/dL 0.2-1.2 SODIUM (BEAKER) (test clje=590) 136 meq/L 136-145 POTASSIUM (BEAKER) (test sphm=434) 4.5 meq/L 3.5-5.1 CHLORIDE (BEAKER) (test ajlr=614) 112 meq/L 98-107 CO2 (BEAKER) (test zeae=238) 18 meq/L 22-29 BLOOD UREA NITROGEN (BEAKER) (test btwz=904) 44 mg/dL 7-21 CREATININE (BEAKER) (test msmm=204) 1.62 mg/dL 0.57-1.25 GLUCOSE RANDOM (BEAKER) (test eokm=944) 81 mg/dL 70-105 CALCIUM (BEAKER) (test ffnm=563) 9.0 mg/dL 8.4-10.2 AST (SGOT) (BEAKER) (test njcp=227) 66 U/L 5-34 ALT (SGPT) (BEAKER) (test wqzx=890) 30 U/L 6-55 EGFR (BEAKER) (test vwlv=5614) 45 mL/min/1.73 sq m ESTIMATED GFR IS NOT ACCURATE CREATININE CLEARANCE IN PREDICTING GLOMERULAR FILTRATION RATE. ESTIMATED GFR IS NOT APPLICABLE FOR DIALYSIS PATIENTS. Specimen moderately ictericCBC W/PLT COUNT & AUTO [id number] 06:24:00* Test Item Value Reference Range Comments WHITE BLOOD CELL COUNT (BEAKER) (test rjgm=806) 3.7 K/ L 3.5-10.5 RED BLOOD CELL COUNT (BEAKER) (test jclm=789) 2.21 M/ L 4.63-6.08 HEMOGLOBIN (BEAKER) (test onvh=178) 7.1 GM/DL 13.7-17.5 HEMATOCRIT (BEAKER) (test baxa=313) 23.0 % 40.1-51.0 MEAN CORPUSCULAR VOLUME (BEAKER) (test dfrt=482) 104.1 fL 79.0-92.2 MEAN CORPUSCULAR HEMOGLOBIN (BEAKER) (test akws=007) 32.1 pg 25.7-32.2 MEAN CORPUSCULAR HEMOGLOBIN CONC (BEAKER) (test milg=754) 30.9 GM/DL 32.3-36.5 RED CELL DISTRIBUTION WIDTH (BEAKER) (test gsdq=005) 17.5 % 11.6-14.4 PLATELET COUNT (BEAKER) (test edxj=705) 85 K/CU MM 150-450 MEAN PLATELET VOLUME (BEAKER) (test agfv=175) 11.8 fL 9.4-12.4 NUCLEATED RED BLOOD CELLS (BEAKER) (test nygp=602) 0 /100 WBC 0-0 NEUTROPHILS RELATIVE PERCENT (BEAKER) (test hrhk=220) 78 % LYMPHOCYTES RELATIVE PERCENT (BEAKER) (test lnmi=603) 9 % MONOCYTES RELATIVE PERCENT (BEAKER) (test eqpr=184) 9 % EOSINOPHILS RELATIVE PERCENT (BEAKER) (test yeus=477) 2 % BASOPHILS RELATIVE PERCENT (BEAKER) (test stis=491) 1 % NEUTROPHILS ABSOLUTE COUNT (BEAKER) (test izcc=248) 2.93 K/ L 1.78-5.38 LYMPHOCYTES ABSOLUTE COUNT (BEAKER) (test iaty=025) 0.35 K/ L 1.32-3.57 MONOCYTES ABSOLUTE COUNT (BEAKER) (test nbop=832) 0.33 K/ L 0.30-0.82 EOSINOPHILS ABSOLUTE COUNT (BEAKER) (test wnra=973) 0.08 K/ L 0.04-0.54 BASOPHILS ABSOLUTE COUNT (BEAKER) (test sjis=786) 0.03 K/ L 0.01-0.08 IMMATURE GRANULOCYTES-RELATIVE PERCENT (BEAKER) (test thtm=0170) 1 % 0-1 [id number] 06:16:00* Test Item Value Reference Range Comments PARTIAL THROMBOPLASTIN TIME (BEAKER) (test lndj=943) 50.1 seconds 22.5-36.0 PROTHROMBIN [id number] 06:15:00* Test Item Value Reference Range Comments PROTIME (BEAKER) (test tqol=451) 18.0 seconds 11.7-14.7 INR (BEAKER) (test tmkx=037) 1.5 <=5.9 RECOMMENDED COUMADIN/WARFARIN INR THERAPY RANGESSTANDARD DOSE: 2.0 - 3.0 Inclu sun: PROPHYLAXIS for venous thrombosis, systemic embolization; TREATMENT for santo ous thrombosis and/or pulmonary embolus.HIGH RISK: Target INR is 2.5-3.5 for pat ients with mechanical heart valves.POCT-GLUCOSE [id number] 21:42:00* Test Item Value Reference Range Comments POC-GLUCOSE METER (BEAKER) (test khyr=9254) 133 mg/dL 70-110 TESTED AT [facility] [address] [address] POCT-GLUCOSE [id number] 17:39:00* Test Item Value Reference Range Comments POC-GLUCOSE METER (BEAKER) (test ezfn=6933) 95 mg/dL 70-110 TESTED AT [facility] [address] [address] POCT-GLUCOSE [id number] 11:47:00* Test Item Value Reference Range Comments POC-GLUCOSE METER (BEAKER) (test khmv=9119) 113 mg/dL 70-110 TESTED AT [facility] [address] [address] COMPREHENSIVE METABOLIC [id number] 11:07:00* Test Item Value Reference Range Comments TOTAL PROTEIN (BEAKER) (test fwxe=276) 6.5 gm/dL 6.0-8.3 ALBUMIN (BEAKER) (test hvqr=0626) 4.0 g/dL 3.5-5.0 ALKALINE PHOSPHATASE (BEAKER) (test pptn=898) 311 U/L 40-150 BILIRUBIN TOTAL (BEAKER) (test dkkt=170) 7.2 mg/dL 0.2-1.2 SODIUM (BEAKER) (test frym=527) 137 meq/L 136-145 POTASSIUM (BEAKER) (test zzyt=025) 4.5 meq/L 3.5-5.1 CHLORIDE (BEAKER) (test uzce=847) 112 meq/L 98-107 CO2 (BEAKER) (test ctwj=090) 18 meq/L 22-29 BLOOD UREA NITROGEN (BEAKER) (test arry=568) 46 mg/dL 7-21 CREATININE (BEAKER) (test guhm=379) 1.93 mg/dL 0.57-1.25 GLUCOSE RANDOM (BEAKER) (test yfmc=494) 87 mg/dL 70-105 CALCIUM (BEAKER) (test fxmt=023) 9.1 mg/dL 8.4-10.2 AST (SGOT) (BEAKER) (test xuzj=617) 63 U/L 5-34 ALT (SGPT) (BEAKER) (test cpli=853) 26 U/L 6-55 EGFR (BEAKER) (test cdgp=6294) 37 mL/min/1.73 sq m ESTIMATED GFR IS NOT ACCURATE CREATININE CLEARANCE IN PREDICTING GLOMERULAR FILTRATION RATE. ESTIMATED GFR IS NOT APPLICABLE FOR DIALYSIS PATIENTS. Specimen moderately ictericCBC W/PLT COUNT & AUTO [id number] 10:52:00* Test Item Value Reference Range Comments WHITE BLOOD CELL COUNT (BEAKER) (test xpjz=467) 3.9 K/ L 3.5-10.5 RED BLOOD CELL COUNT (BEAKER) (test telw=301) 2.30 M/ L 4.63-6.08 HEMOGLOBIN (BEAKER) (test ahoe=952) 7.3 GM/DL 13.7-17.5 HEMATOCRIT (BEAKER) (test unbf=616) 23.9 % 40.1-51.0 MEAN CORPUSCULAR VOLUME (BEAKER) (test dttr=332) 103.9 fL 79.0-92.2 MEAN CORPUSCULAR HEMOGLOBIN (BEAKER) (test talr=590) 31.7 pg 25.7-32.2 MEAN CORPUSCULAR HEMOGLOBIN CONC (BEAKER) (test pfvc=139) 30.5 GM/DL 32.3-36.5 RED CELL DISTRIBUTION WIDTH (BEAKER) (test knzm=078) 17.5 % 11.6-14.4 PLATELET COUNT (BEAKER) (test iubd=012) 89 K/CU MM 150-450 MEAN PLATELET VOLUME (BEAKER) (test burs=451) 11.4 fL 9.4-12.4 NUCLEATED RED BLOOD CELLS (BEAKER) (test axrz=163) 0 /100 WBC 0-0 NEUTROPHILS RELATIVE PERCENT (BEAKER) (test cygp=778) 79 % LYMPHOCYTES RELATIVE PERCENT (BEAKER) (test pmqo=295) 8 % MONOCYTES RELATIVE PERCENT (BEAKER) (test hwdt=003) 10 % EOSINOPHILS RELATIVE PERCENT (BEAKER) (test jahn=028) 2 % BASOPHILS RELATIVE PERCENT (BEAKER) (test llrh=074) 1 % NEUTROPHILS ABSOLUTE COUNT (BEAKER) (test nmgr=754) 3.07 K/ L 1.78-5.38 LYMPHOCYTES ABSOLUTE COUNT (BEAKER) (test gkne=652) 0.33 K/ L 1.32-3.57 MONOCYTES ABSOLUTE COUNT (BEAKER) (test fgjw=288) 0.39 K/ L 0.30-0.82 EOSINOPHILS ABSOLUTE COUNT (BEAKER) (test kzxi=435) 0.06 K/ L 0.04-0.54 BASOPHILS ABSOLUTE COUNT (BEAKER) (test umia=598) 0.03 K/ L 0.01-0.08 IMMATURE GRANULOCYTES-RELATIVE PERCENT (BEAKER) (test qzxn=6684) 1 % 0-1 POCT-GLUCOSE [id number] 08:16:00* Test Item Value Reference Range Comments POC-GLUCOSE METER (BEAKER) (test scat=2295) 79 mg/dL 70-110 TESTED AT [address] [address] PROTHROMBIN [id number] 05:15:00* Test Item Value Reference Range Comments PROTIME (BEAKER) (test cuyt=595) 19.0 seconds 11.7-14.7 INR (BEAKER) (test esjw=514) 1.6 <=5.9 RECOMMENDED COUMADIN/WARFARIN INR THERAPY RANGESSTANDARD DOSE: 2.0 - 3.0 Inclu sun: PROPHYLAXIS for venous thrombosis, systemic embolization; TREATMENT for santo ous thrombosis and/or pulmonary embolus.HIGH RISK: Target INR is 2.5-3.5 for pat ients with mechanical heart valves.POCT-GLUCOSE [id number] 22:36:00* Test Item Value Reference Range Comments POC-GLUCOSE METER (BEAKER) (test sipz=2606) 90 mg/dL 70-110 TESTED AT [address] [address] POCT-GLUCOSE [id number] 18:37:00* Test Item Value Reference Range Comments POC-GLUCOSE METER (BEAKER) (test wygc=6374) 96 mg/dL 70-110 TESTED AT [address] [address] POCT-GLUCOSE [id number] 16:10:00* Test Item Value Reference Range Comments POC-GLUCOSE METER (BEAKER) (test rfpn=4545) 85 mg/dL 70-110 TESTED AT [address] [address] POCT-GLUCOSE [id number] 14:21:00* Test Item Value Reference Range Comments POC-GLUCOSE METER (BEAKER) (test jkaa=4304) 69 mg/dL 70-110 TESTED AT [address] [address] MR, SPINE, THORACIC, [id number] 13:39:00FINAL REPORT MRI thoracic spine with and without contrast 05/19/2018 1:34 PM CLINICAL HISTORY: evaluation of lower thoracic lesion, suggestive hemangioma. liver transplant candidate TECHNIQUE: MRI of the thoracic spine was performed utilizing the following sequences: Sagittal T1, T2, STIR; axial T1 and T2; postcontrast sagittal and axial T1. COMPARISON: MRI abdomen 05/03/2018 FINDINGS: There is a 12 mm T2/STIR hypointense, T1 isointense, faintly enhancing lesion in the T9 vertebral body. No additional lesions are evident. Bone marrow signal intensity is otherwise unremarkable. There is no fracture or malalignment. There are multilevel intervertebral disc herniations, with resultant endplate deformation. The spinal cord is normal in size and signal intensity. Spinal ca nal diameter is within normal limits. There are multilevel degenerative changes, without remarkable central canal or foraminal stenosis. There is hepatic cirrho sis with splenomegaly. There is a partially visualized subcapsular fluid collect ion, with deformation of the right lobe of the liver. There are bilateral small volume pleural effusions with adjacent dependent atelectasis. The paraspinal mus culature is intact. IMPRESSION: 1. 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 Advise correlation with n oncontrast CT of the thoracic spine. 2. Nonmusculoskeletal findings, stable when compared to 05/03/2018. Signed: Bob Guzman [facility] Verified Date/Time: 13:39:54 Reading Location: [facility] [id number] Neuro Reading Room [facility] signed by: BOB GUZMAN M.D. on 05/19/2018 01:39 PM COMPREHENSIVE METABOLIC [id number] 12:34:00* Test Item Value Reference Range Comments TOTAL PROTEIN (BEAKER) (test vbcx=947) 6.3 gm/dL 6.0-8.3 ALBUMIN (BEAKER) (test djkx=2717) 3.8 g/dL 3.5-5.0 ALKALINE PHOSPHATASE (BEAKER) (test eoql=327) 245 U/L 40-150 BILIRUBIN TOTAL (BEAKER) (test txpl=072) 6.9 mg/dL 0.2-1.2 SODIUM (BEAKER) (test rdhs=858) 138 meq/L 136-145 POTASSIUM (BEAKER) (test crhk=880) 4.3 meq/L 3.5-5.1 CHLORIDE (BEAKER) (test ocsp=669) 113 meq/L 98-107 CO2 (BEAKER) (test ixhf=478) 17 meq/L 22-29 BLOOD UREA NITROGEN (BEAKER) (test wsuc=415) 45 mg/dL 7-21 CREATININE (BEAKER) (test yxql=006) 2.22 mg/dL 0.57-1.25 GLUCOSE RANDOM (BEAKER) (test hotc=414) 64 mg/dL 70-105 CALCIUM (BEAKER) (test mfmo=832) 9.0 mg/dL 8.4-10.2 AST (SGOT) (BEAKER) (test cmxb=436) 58 U/L 5-34 ALT (SGPT) (BEAKER) (test pvbg=944) 27 U/L 6-55 EGFR (BEAKER) (test vwyr=0339) 32 mL/min/1.73 sq m ESTIMATED GFR IS NOT ACCURATE CREATININE CLEARANCE IN PREDICTING GLOMERULAR FILTRATION RATE. ESTIMATED GFR IS NOT APPLICABLE FOR DIALYSIS PATIENTS. Specimen moderately ictericPOCT-GLUCOSE [id number] 08:00:00* Test Item Value Reference Range Comments POC-GLUCOSE METER (BEAKER) (test hlut=6890) 77 mg/dL 70-110 TESTED AT [facility] [address] [address] B-TYPE NATRIURETIC FACTOR (BNP)2018-05-19 07:13:00* Test Item Value Reference Range Comments B-TYPE NATRIURETIC PEPTIDE (BEAKER) (test ktiw=223) 100 pg/mL 0-100 PROTHROMBIN [id number] 06:58:00* Test Item Value Reference Range Comments PROTIME (BEAKER) (test cavb=911) 18.0 seconds 11.7-14.7 INR (BEAKER) (test ohqw=857) 1.5 <=5.9 RECOMMENDED COUMADIN/WARFARIN INR THERAPY RANGESSTANDARD DOSE: 2.0 - 3.0 Inclu sun: PROPHYLAXIS for venous thrombosis, systemic embolization; TREATMENT for santo ous thrombosis and/or pulmonary embolus.HIGH RISK: Target INR is 2.5-3.5 for pat ients with mechanical heart valves.OSMOLALITY, [id number] 03:51:00* Test Item Value Reference Range Comments OSMOLALITY URINE (BEAKER) (test zxlb=950) 400 mOsm/kg 40-1,400 URINALYSIS W/ [id number] 03:49:00* Test Item Value Reference Range Comments COLOR (BEAKER) (test sklv=840) Dark Yellow CLARITY (BEAKER) (test limg=623) Hazy SPECIFIC GRAVITY UA (BEAKER) (test sjum=807) 1.021 1.001-1.035 PH UA (BEAKER) (test sxit=582) 5.5 5.0-8.0 PROTEIN UA (BEAKER) (test zbzc=654) 200 mg/dL Negative GLUCOSE UA (BEAKER) (test ybwt=313) Negative Negative KETONES UA (BEAKER) (test djbv=761) Trace Negative BILIRUBIN UA (BEAKER) (test moew=806) Positive Negative BLOOD UA (BEAKER) (test hgev=339) Small Negative NITRITE UA (BEAKER) (test qxvh=536) Negative Negative LEUKOCYTE ESTERASE UA (BEAKER) (test oeem=825) Negative Negative UROBILINOGEN UA (BEAKER) (test pmfd=785) 0.2 mg/dL 0.2-1.0 RBC UA (BEAKER) (test wati=811) 6 /HPF WBC UA (BEAKER) (test quqh=342) 4 /HPF MUCUS (BEAKER) (test ibmf=3155) Rare HYALINE CASTS (BEAKER) (test smxt=728) 67 /LPF GRANULAR CASTS (BEAKER) (test ncro=502) 89 /LPF AMORPHOUS CRYSTALS (BEAKER) (test yurf=2397) Many SOURCE(BEAKER) (test geer=7069) Urine, Clean Catch EOSINOPHIL SMEAR, [id number] 02:15:00* Test Item Value Reference Range Comments EOSINOPHIL SMEAR, URINE (BEAKER) (test xgfk=8120) No EOS seen No EOS seen SODIUM, RANDOM [id number] 01:28:00* Test Item Value Reference Range Comments SODIUM URINE (BEAKER) (test txjq=693) < meq/L Reference Range: No NormalsCREATININE, RANDOM [id number] 01:19:00* Test Item Value Reference Range Comments CREATININE URINE (BEAKER) (test cijh=197) 187.6 mg/dL Reference Range: No NormalsPOCT-GLUCOSE [id number] 22:32:00* Test Item Value Reference Range Comments POC-GLUCOSE METER (BEAKER) (test obbt=4867) 80 mg/dL 70-110 TESTED AT [facility] [address] [address] POCT-GLUCOSE [id number] 16:59:00* Test Item Value Reference Range Comments POC-GLUCOSE METER (BEAKER) (test tprj=1101) 105 mg/dL 70-110 TESTED AT [facility] [address] [address] POCT-GLUCOSE [id number] 12:45:00* Test Item Value Reference Range Comments POC-GLUCOSE METER (BEAKER) (test duge=3731) 104 mg/dL 70-110 TESTED AT [facility] [address] [address] COMPREHENSIVE METABOLIC [id number] 11:54:00* Test Item Value Reference Range Comments TOTAL PROTEIN (BEAKER) (test neai=388) 6.8 gm/dL 6.0-8.3 ALBUMIN (BEAKER) (test xpmk=7481) 4.3 g/dL 3.5-5.0 ALKALINE PHOSPHATASE (BEAKER) (test anqy=427) 273 U/L 40-150 BILIRUBIN TOTAL (BEAKER) (test jzag=598) 7.3 mg/dL 0.2-1.2 SODIUM (BEAKER) (test uqgw=620) 139 meq/L 136-145 POTASSIUM (BEAKER) (test ekkn=770) 4.2 meq/L 3.5-5.1 CHLORIDE (BEAKER) (test halz=732) 113 meq/L 98-107 CO2 (BEAKER) (test nnpo=382) 19 meq/L 22-29 BLOOD UREA NITROGEN (BEAKER) (test hefj=179) 39 mg/dL 7-21 CREATININE (BEAKER) (test xiuc=313) 1.59 mg/dL 0.57-1.25 GLUCOSE RANDOM (BEAKER) (test xgdl=064) 116 mg/dL 70-105 CALCIUM (BEAKER) (test nvie=600) 9.1 mg/dL 8.4-10.2 AST (SGOT) (BEAKER) (test raok=446) 52 U/L 5-34 ALT (SGPT) (BEAKER) (test hxuf=276) 25 U/L 6-55 EGFR (BEAKER) (test dcnb=8644) 46 mL/min/1.73 sq m ESTIMATED GFR IS NOT ACCURATE CREATININE CLEARANCE IN PREDICTING GLOMERULAR FILTRATION RATE. ESTIMATED GFR IS NOT APPLICABLE FOR DIALYSIS PATIENTS. Specimen moderately ictericCBC W/PLT COUNT & AUTO [id number] 11:53:00* Test Item Value Reference Range Comments WHITE BLOOD CELL COUNT (BEAKER) (test ivir=776) 4.5 K/ L 3.5-10.5 RED BLOOD CELL COUNT (BEAKER) (test fmtl=808) 2.31 M/ L 4.63-6.08 HEMOGLOBIN (BEAKER) (test epwo=421) 7.4 GM/DL 13.7-17.5 HEMATOCRIT (BEAKER) (test wcdr=806) 24.2 % 40.1-51.0 MEAN CORPUSCULAR VOLUME (BEAKER) (test pyut=157) 104.8 fL 79.0-92.2 MEAN CORPUSCULAR HEMOGLOBIN (BEAKER) (test mxnc=795) 32.0 pg 25.7-32.2 MEAN CORPUSCULAR HEMOGLOBIN CONC (BEAKER) (test efne=602) 30.6 GM/DL 32.3-36.5 RED CELL DISTRIBUTION WIDTH (BEAKER) (test pwqr=480) 18.2 % 11.6-14.4 PLATELET COUNT (BEAKER) (test mcjz=651) 83 K/CU MM 150-450 MEAN PLATELET VOLUME (BEAKER) (test vzaa=272) 11.0 fL 9.4-12.4 NUCLEATED RED BLOOD CELLS (BEAKER) (test noyl=525) 0 /100 WBC 0-0 NEUTROPHILS RELATIVE PERCENT (BEAKER) (test uenl=418) 81 % LYMPHOCYTES RELATIVE PERCENT (BEAKER) (test kzxx=795) 7 % MONOCYTES RELATIVE PERCENT (BEAKER) (test kxed=729) 10 % EOSINOPHILS RELATIVE PERCENT (BEAKER) (test rpul=949) 2 % BASOPHILS RELATIVE PERCENT (BEAKER) (test kdjs=215) 0 % NEUTROPHILS ABSOLUTE COUNT (BEAKER) (test gndu=754) 3.63 K/ L 1.78-5.38 LYMPHOCYTES ABSOLUTE COUNT (BEAKER) (test oubo=712) 0.32 K/ L 1.32-3.57 MONOCYTES ABSOLUTE COUNT (BEAKER) (test tweq=161) 0.43 K/ L 0.30-0.82 EOSINOPHILS ABSOLUTE COUNT (BEAKER) (test adtx=152) 0.08 K/ L 0.04-0.54 BASOPHILS ABSOLUTE COUNT (BEAKER) (test cuby=660) 0.02 K/ L 0.01-0.08 IMMATURE GRANULOCYTES-RELATIVE PERCENT (BEAKER) (test hvnk=9413) 1 % 0-1 POCT-GLUCOSE [id number] 08:04:00* Test Item Value Reference Range Comments POC-GLUCOSE METER (BEAKER) (test omzb=5321) 94 mg/dL 70-110 TESTED AT [address] [address] PROTHROMBIN [id number] 06:08:00* Test Item Value Reference Range Comments PROTIME (BEAKER) (test byjq=792) 18.3 seconds 11.7-14.7 INR (BEAKER) (test lazp=843) 1.5 <=5.9 RECOMMENDED COUMADIN/WARFARIN INR THERAPY RANGESSTANDARD DOSE: 2.0 - 3.0 Inclu sun: PROPHYLAXIS for venous thrombosis, systemic embolization; TREATMENT for santo ous thrombosis and/or pulmonary embolus.HIGH RISK: Target INR is 2.5-3.5 for pat ients with mechanical heart valves.POCT-GLUCOSE [id number] 22:28:00* Test Item Value Reference Range Comments POC-GLUCOSE METER (BEAKER) (test yvdf=4639) 106 mg/dL 70-110 TESTED AT [address] [address] POCT-GLUCOSE [id number] 19:46:00* Test Item Value Reference Range Comments POC-GLUCOSE METER (BEAKER) (test clph=3840) 112 mg/dL 70-110 TESTED AT [address] [address] POCT-GLUCOSE [id number] 17:03:00* Test Item Value Reference Range Comments POC-GLUCOSE METER (BEAKER) (test kiti=0068) 106 mg/dL 70-110 TESTED AT [address] [address] RETICULOCYTE [id number] 14:20:00* Test Item Value Reference Range Comments RETICULOCYTE COUNT PCT (BEAKER) (test nife=140) 2.1 % 0.5-1.8 POCT-GLUCOSE [id number] 13:27:00* Test Item Value Reference Range Comments POC-GLUCOSE METER (BEAKER) (test mtmz=6614) 147 mg/dL 70-110 TESTED AT [address] [address] BODY FLUID CULTURE + GRAM [id number] 10:40:00* Test Item Value Reference Range Comments CULTURE (BEAKER) (test pgkm=5076) No growth GRAM STAIN RESULT (BEAKER) (test eqzi=5302) <1+ WBCs GRAM STAIN RESULT (BEAKER) (test lmbo=72094) No organisms seen [id number] 07:42:00* Test Item Value Reference Range Comments PHOSPHORUS (BEAKER) (test xsll=654) 2.4 mg/dL 2.3-4.7 [id number] 07:42:00* Test Item Value Reference Range Comments MAGNESIUM (BEAKER) (test pads=834) 2.3 mg/dL 1.6-2.6 COMPREHENSIVE METABOLIC [id number] 07:42:00* Test Item Value Reference Range Comments TOTAL PROTEIN (BEAKER) (test gpgd=405) 6.1 gm/dL 6.0-8.3 ALBUMIN (BEAKER) (test qjlm=8668) 3.7 g/dL 3.5-5.0 ALKALINE PHOSPHATASE (BEAKER) (test chta=284) 248 U/L 40-150 BILIRUBIN TOTAL (BEAKER) (test smea=845) 7.0 mg/dL 0.2-1.2 SODIUM (BEAKER) (test yahw=374) 140 meq/L 136-145 POTASSIUM (BEAKER) (test pdin=561) 3.8 meq/L 3.5-5.1 CHLORIDE (BEAKER) (test cbft=098) 115 meq/L 98-107 CO2 (BEAKER) (test zevx=703) 17 meq/L 22-29 BLOOD UREA NITROGEN (BEAKER) (test gqoa=250) 38 mg/dL 7-21 CREATININE (BEAKER) (test atgo=080) 1.27 mg/dL 0.57-1.25 GLUCOSE RANDOM (BEAKER) (test fpym=236) 99 mg/dL 70-105 CALCIUM (BEAKER) (test djna=905) 8.7 mg/dL 8.4-10.2 AST (SGOT) (BEAKER) (test yybd=621) 45 U/L 5-34 ALT (SGPT) (BEAKER) (test wzgy=527) 24 U/L 6-55 EGFR (BEAKER) (test qdae=2825) 60 mL/min/1.73 sq m ESTIMATED GFR IS NOT ACCURATE CREATININE CLEARANCE IN PREDICTING GLOMERULAR FILTRATION RATE. ESTIMATED GFR IS NOT APPLICABLE FOR DIALYSIS PATIENTS. Specimen moderately ictericPOCT-GLUCOSE [id number] 07:38:00* Test Item Value Reference Range Comments POC-GLUCOSE METER (BEAKER) (test yzal=5411) 102 mg/dL 70-110 TESTED AT [facility] [address] [address] PROTHROMBIN [id number] 07:28:00* Test Item Value Reference Range Comments PROTIME (BEAKER) (test slqe=359) 18.9 seconds 11.7-14.7 INR (BEAKER) (test mxpg=102) 1.6 <=5.9 RECOMMENDED COUMADIN/WARFARIN INR THERAPY RANGESSTANDARD DOSE: 2.0 - 3.0 Inclu sun: PROPHYLAXIS for venous thrombosis, systemic embolization; TREATMENT for santo ous thrombosis and/or pulmonary embolus.HIGH RISK: Target INR is 2.5-3.5 for pat ients with mechanical heart valves.CBC W/PLT COUNT & AUTO [id number] 07:26:00* Test Item Value Reference Range Comments WHITE BLOOD CELL COUNT (BEAKER) (test aziq=270) 3.7 K/ L 3.5-10.5 RED BLOOD CELL COUNT (BEAKER) (test hmdi=381) 2.21 M/ L 4.63-6.08 HEMOGLOBIN (BEAKER) (test xmcw=668) 7.2 GM/DL 13.7-17.5 HEMATOCRIT (BEAKER) (test nzrk=737) 23.3 % 40.1-51.0 MEAN CORPUSCULAR VOLUME (BEAKER) (test lmgl=030) 105.4 fL 79.0-92.2 MEAN CORPUSCULAR HEMOGLOBIN (BEAKER) (test ltew=662) 32.6 pg 25.7-32.2 MEAN CORPUSCULAR HEMOGLOBIN CONC (BEAKER) (test japd=522) 30.9 GM/DL 32.3-36.5 RED CELL DISTRIBUTION WIDTH (BEAKER) (test zprg=049) 18.5 % 11.6-14.4 PLATELET COUNT (BEAKER) (test lsqw=702) 77 K/CU MM 150-450 MEAN PLATELET VOLUME (BEAKER) (test yoam=006) 11.4 fL 9.4-12.4 NUCLEATED RED BLOOD CELLS (BEAKER) (test ldeo=882) 0 /100 WBC 0-0 NEUTROPHILS RELATIVE PERCENT (BEAKER) (test zttv=455) 80 % LYMPHOCYTES RELATIVE PERCENT (BEAKER) (test isju=785) 8 % MONOCYTES RELATIVE PERCENT (BEAKER) (test rtnk=717) 10 % EOSINOPHILS RELATIVE PERCENT (BEAKER) (test wfqf=580) 1 % BASOPHILS RELATIVE PERCENT (BEAKER) (test tyva=228) 1 % NEUTROPHILS ABSOLUTE COUNT (BEAKER) (test xqsk=937) 2.94 K/ L 1.78-5.38 LYMPHOCYTES ABSOLUTE COUNT (BEAKER) (test mjdd=322) 0.30 K/ L 1.32-3.57 MONOCYTES ABSOLUTE COUNT (BEAKER) (test syob=487) 0.37 K/ L 0.30-0.82 EOSINOPHILS ABSOLUTE COUNT (BEAKER) (test msou=522) 0.03 K/ L 0.04-0.54 BASOPHILS ABSOLUTE COUNT (BEAKER) (test vnzj=731) 0.02 K/ L 0.01-0.08 IMMATURE GRANULOCYTES-RELATIVE PERCENT (BEAKER) (test bqbf=4866) 1 % 0-1 CALCIUM, [id number] 07:23:00* Test Item Value Reference Range Comments CALCIUM IONIZED (BEAKER) (test pfcy=746) 1.07 mmol/L 1.12-1.27 PH, BLOOD (BEAKER) (test vcwj=0771) 7.44 POCT-GLUCOSE [id number] 00:29:00* Test Item Value Reference Range Comments POC-GLUCOSE METER (BEAKER) (test ywyu=1448) 160 mg/dL 70-110 TESTED AT [place] [id number] [address] POCT-GLUCOSE [id number] 17:20:00* Test Item Value Reference Range Comments POC-GLUCOSE METER (BEAKER) (test sceh=2295) 125 mg/dL 70-110 TESTED AT [place] [id number] [address] POCT-GLUCOSE [id number] 14:25:00* Test Item Value Reference Range Comments POC-GLUCOSE METER (BEAKER) (test lakf=1529) 121 mg/dL 70-110 TESTED AT [address] [address] POCT-GLUCOSE [id number] 08:06:00* Test Item Value Reference Range Comments POC-GLUCOSE METER (BEAKER) (test qmmy=0111) 116 mg/dL 70-110 TESTED AT [facility] [address] [address] [id number] 06:51:00* Test Item Value Reference Range Comments MAGNESIUM (BEAKER) (test imbn=704) 2.6 mg/dL 1.6-2.6 Specimen slightly hemolyzed COMPREHENSIVE METABOLIC [id number] 06:51:00* Test Item Value Reference Range Comments TOTAL PROTEIN (BEAKER) (test xsnf=760) 6.1 gm/dL 6.0-8.3 Specimen slightly hemolyzed ALBUMIN (BEAKER) (test xczu=2288) 3.5 g/dL 3.5-5.0 Specimen slightly hemolyzed ALKALINE PHOSPHATASE (BEAKER) (test wbts=734) 224 U/L 40-150 BILIRUBIN TOTAL (BEAKER) (test advg=116) 7.5 mg/dL 0.2-1.2 Specimen slightly hemolyzed SODIUM (BEAKER) (test zute=498) 139 meq/L 136-145 POTASSIUM (BEAKER) (test zlur=766) 4.1 meq/L 3.5-5.1 Specimen slightly hemolyzed CHLORIDE (BEAKER) (test cewt=699) 113 meq/L 98-107 CO2 (BEAKER) (test vwtn=360) 19 meq/L 22-29 BLOOD UREA NITROGEN (BEAKER) (test rebv=704) 46 mg/dL 7-21 CREATININE (BEAKER) (test zmgf=041) 1.36 mg/dL 0.57-1.25 Specimen slightly hemolyzed GLUCOSE RANDOM (BEAKER) (test pude=633) 114 mg/dL 70-105 CALCIUM (BEAKER) (test osfl=618) 8.7 mg/dL 8.4-10.2 AST (SGOT) (BEAKER) (test mcay=246) 60 U/L 5-34 Specimen slightly hemolyzed ALT (SGPT) (BEAKER) (test fzup=833) 26 U/L 6-55 Specimen slightly hemolyzed EGFR (BEAKER) (test xobg=1004) 55 mL/min/1.73 sq m ESTIMATED GFR IS NOT ACCURATE CREATININE CLEARANCE IN PREDICTING GLOMERULAR FILTRATION RATE. ESTIMATED GFR IS NOT APPLICABLE FOR DIALYSIS PATIENTS. Specimen moderately ictericPROTHROMBIN [id number] 06:21:00* Test Item Value Reference Range Comments PROTIME (BEAKER) (test gppy=216) 20.3 seconds 11.7-14.7 INR (BEAKER) (test ygfl=280) 1.7 <=5.9 RECOMMENDED COUMADIN/WARFARIN INR THERAPY RANGESSTANDARD DOSE: 2.0 - 3.0 Inclu sun: PROPHYLAXIS for venous thrombosis, systemic embolization; TREATMENT for santo ous thrombosis and/or pulmonary embolus.HIGH RISK: Target INR is 2.5-3.5 for pat ients with mechanical heart valves.CBC W/PLT COUNT & AUTO [id number] 06:15:00* Test Item Value Reference Range Comments WHITE BLOOD CELL COUNT (BEAKER) (test ware=944) 3.9 K/ L 3.5-10.5 RED BLOOD CELL COUNT (BEAKER) (test drfa=629) 2.31 M/ L 4.63-6.08 HEMOGLOBIN (BEAKER) (test bvtc=827) 7.5 GM/DL 13.7-17.5 HEMATOCRIT (BEAKER) (test qzln=379) 24.0 % 40.1-51.0 MEAN CORPUSCULAR VOLUME (BEAKER) (test njvn=798) 103.9 fL 79.0-92.2 MEAN CORPUSCULAR HEMOGLOBIN (BEAKER) (test dbyd=921) 32.5 pg 25.7-32.2 MEAN CORPUSCULAR HEMOGLOBIN CONC (BEAKER) (test lnok=876) 31.3 GM/DL 32.3-36.5 RED CELL DISTRIBUTION WIDTH (BEAKER) (test rzal=886) 18.8 % 11.6-14.4 PLATELET COUNT (BEAKER) (test cror=640) 99 K/CU MM 150-450 MEAN PLATELET VOLUME (BEAKER) (test ijpl=440) 11.5 fL 9.4-12.4 NUCLEATED RED BLOOD CELLS (BEAKER) (test lzgx=114) 0 /100 WBC 0-0 NEUTROPHILS RELATIVE PERCENT (BEAKER) (test suhi=435) 80 % LYMPHOCYTES RELATIVE PERCENT (BEAKER) (test lbtf=233) 8 % MONOCYTES RELATIVE PERCENT (BEAKER) (test xhrk=296) 10 % EOSINOPHILS RELATIVE PERCENT (BEAKER) (test ckfx=020) 1 % BASOPHILS RELATIVE PERCENT (BEAKER) (test axet=529) 1 % NEUTROPHILS ABSOLUTE COUNT (BEAKER) (test bazh=951) 3.12 K/ L 1.78-5.38 LYMPHOCYTES ABSOLUTE COUNT (BEAKER) (test raww=936) 0.32 K/ L 1.32-3.57 MONOCYTES ABSOLUTE COUNT (BEAKER) (test nssz=747) 0.37 K/ L 0.30-0.82 EOSINOPHILS ABSOLUTE COUNT (BEAKER) (test dmxz=238) 0.03 K/ L 0.04-0.54 BASOPHILS ABSOLUTE COUNT (BEAKER) (test ngdp=089) 0.03 K/ L 0.01-0.08 IMMATURE GRANULOCYTES-RELATIVE PERCENT (BEAKER) (test qetd=8966) 1 % 0-1 POCT-GLUCOSE [id number] 21:07:00* Test Item Value Reference Range Comments POC-GLUCOSE METER (BEAKER) (test hdce=6986) 203 mg/dL 70-110 TESTED AT [facility] [address] [address] POCT-GLUCOSE [id number] 17:04:00* Test Item Value Reference Range Comments POC-GLUCOSE METER (BEAKER) (test wgzu=0410) 155 mg/dL 70-110 TESTED AT [facility] [address] [address] EEG AWAKE AND [id number] 12:30:00Reason for exam:->EncephalopathyShould this be performed at the bedside?->YesCH[facility] EEG REPORTDATE OF TEST: [id number] OF REPORT: [id number]: [id number]: [id number] time: 09:44Stop time: 10:06ICD-10: R56.9CPT Code: [id number]: 52 yo male with h/o cirrhosis, Hep B, presents with alteration of mental status.MEDICATIONS: ceftriaxone, insulinTECHNICAL SUMMARY: This is a digital video EEG recorded with 32 input channels reviewed with bipolar and referential montages using the modified combinatorial system nomenclature. DESCRIPTION OF RECORD: During the maximally alert state a 7-7.5 Hz posterior dominant rhythm was seen that was symmetric, reactive to eye opening and well regulated. More anteriorly, low voltage frontocentral beta predominated. The background is predominated by 4-7 Hz theta activity and admixed 1.5-3 Hz delta activity. At times, the 1.5-3 Hz polymorphic delta activity occurs in generalized rhythmic pattern. Drowsiness was characterized by increased frontocentral theta. Stage 2 sleep was characterized by sleep spindles and K-complexes.HV: Hyperventilation was not performed. PHOTIC STIMULATION: Photic stimulation was done from 1-30 Hz; photic driving was seen; photoparoxysmal responses were absent. VIDEO EVENTS RECORDED: noneELECTROCARDIOGRAM EVENTS: noneIMPRESSION: Abnormal awake and sleep EEG due to: 1. Presence of mild diffuse slowing of the background rhythm 2. Ge neralized rhythmic delta activity (GIRDA) 3. Intermittent generalized poly morphic delta slowing, reactive 4. Slow posterior dominant rhythm CLINICAL CO RRELATION: Mild diffuse slowing of background rhythm is consistent with mild deg ree of encephalopathy. Generalized rhythmic delta activity can be secondary to a cute encephalopathy and rarely, a midline structural lesion. An EEG without epi leptiform discharges does not exclude the possibility of epilepsy. If the clini viola suspicion of epilepsy remains, consider additional EEG recordings. Denilson phillips MDNeurophysiology Fellow Amari Poole M.D., FACNS, FAAN, FAESProfes sor of Neurology, [facility] College of MedicineDirector, [facility] Epile psy [facility] -GLUCOSE [id number] 11:40:00 * Test Item Value Reference Range Comments POC-GLUCOSE METER (BEAKER) (test gdit=5352) 110 mg/dL 70-110 TESTED AT [address] [address] POCT-GLUCOSE [id number] 08:24:00* Test Item Value Reference Range Comments POC-GLUCOSE METER (BEAKER) (test grfe=7020) 105 mg/dL 70-110 TESTED AT [place] [id number] [address] [id number] 07:51:00* Test Item Value Reference Range Comments PHOSPHORUS (BEAKER) (test koiu=874) 2.8 mg/dL 2.3-4.7 [id number] 07:51:00* Test Item Value Reference Range Comments MAGNESIUM (BEAKER) (test diaf=324) 2.4 mg/dL 1.6-2.6 BASIC METABOLIC [id number] 07:51:00* Test Item Value Reference Range Comments SODIUM (BEAKER) (test msnu=992) 139 meq/L 136-145 POTASSIUM (BEAKER) (test uwaa=472) 4.2 meq/L 3.5-5.1 CHLORIDE (BEAKER) (test wyqw=759) 112 meq/L 98-107 CO2 (BEAKER) (test cpae=790) 19 meq/L 22-29 BLOOD UREA NITROGEN (BEAKER) (test pcrz=379) 49 mg/dL 7-21 CREATININE (BEAKER) (test wbti=380) 1.42 mg/dL 0.57-1.25 GLUCOSE RANDOM (BEAKER) (test slvo=895) 106 mg/dL 70-105 CALCIUM (BEAKER) (test ofoj=924) 8.6 mg/dL 8.4-10.2 EGFR (BEAKER) (test efbd=8333) 53 mL/min/1.73 sq m ESTIMATED GFR IS NOT ACCURATE CREATININE CLEARANCE IN PREDICTING GLOMERULAR FILTRATION RATE. ESTIMATED GFR IS NOT APPLICABLE FOR DIALYSIS PATIENTS. Specimen moderately ictericCOMPREHENSIVE METABOLIC [id number] 07:51:00* Test Item Value Reference Range Comments TOTAL PROTEIN (BEAKER) (test xiwf=621) 5.9 gm/dL 6.0-8.3 ALBUMIN (BEAKER) (test iejs=7327) 3.3 g/dL 3.5-5.0 ALKALINE PHOSPHATASE (BEAKER) (test wijq=052) 214 U/L 40-150 BILIRUBIN TOTAL (BEAKER) (test sayc=202) 8.4 mg/dL 0.2-1.2 SODIUM (BEAKER) (test jroo=102) 139 meq/L 136-145 POTASSIUM (BEAKER) (test kgwa=929) 4.2 meq/L 3.5-5.1 CHLORIDE (BEAKER) (test yyux=974) 112 meq/L 98-107 CO2 (BEAKER) (test ijuk=166) 19 meq/L 22-29 BLOOD UREA NITROGEN (BEAKER) (test qhlk=372) 49 mg/dL 7-21 CREATININE (BEAKER) (test lyyi=303) 1.42 mg/dL 0.57-1.25 GLUCOSE RANDOM (BEAKER) (test vhhx=291) 106 mg/dL 70-105 CALCIUM (BEAKER) (test ghtu=700) 8.6 mg/dL 8.4-10.2 AST (SGOT) (BEAKER) (test jlsp=170) 50 U/L 5-34 ALT (SGPT) (BEAKER) (test pdiy=620) 27 U/L 6-55 EGFR (BEAKER) (test hhbq=5247) 53 mL/min/1.73 sq m ESTIMATED GFR IS NOT ACCURATE CREATININE CLEARANCE IN PREDICTING GLOMERULAR FILTRATION RATE. ESTIMATED GFR IS NOT APPLICABLE FOR DIALYSIS PATIENTS. Specimen moderately ictericHEPATIC FUNCTION [id number] 07:51:00* Test Item Value Reference Range Comments TOTAL PROTEIN (BEAKER) (test baks=822) 5.9 gm/dL 6.0-8.3 ALBUMIN (BEAKER) (test ngad=8208) 3.3 g/dL 3.5-5.0 BILIRUBIN TOTAL (BEAKER) (test fdxe=168) 8.4 mg/dL 0.2-1.2 BILIRUBIN DIRECT (BEAKER) (test eivy=211) 6.3 mg/dL 0.1-0.5 ALKALINE PHOSPHATASE (BEAKER) (test rrrl=615) 214 U/L 40-150 AST (SGOT) (BEAKER) (test mlvu=367) 50 U/L 5-34 ALT (SGPT) (BEAKER) (test ngfo=125) 27 U/L 6-55 Specimen moderately ictericCBC W/PLT COUNT & AUTO [id number] 07:46:00* Test Item Value Reference Range Comments WHITE BLOOD CELL COUNT (BEAKER) (test dbko=153) 4.6 K/ L 3.5-10.5 RED BLOOD CELL COUNT (BEAKER) (test fbhn=761) 2.40 M/ L 4.63-6.08 HEMOGLOBIN (BEAKER) (test qqxr=375) 7.7 GM/DL 13.7-17.5 HEMATOCRIT (BEAKER) (test qcew=126) 24.8 % 40.1-51.0 MEAN CORPUSCULAR VOLUME (BEAKER) (test xhuc=037) 103.3 fL 79.0-92.2 MEAN CORPUSCULAR HEMOGLOBIN (BEAKER) (test zsnd=420) 32.1 pg 25.7-32.2 MEAN CORPUSCULAR HEMOGLOBIN CONC (BEAKER) (test jjbz=906) 31.0 GM/DL 32.3-36.5 RED CELL DISTRIBUTION WIDTH (BEAKER) (test lveu=253) 19.2 % 11.6-14.4 PLATELET COUNT (BEAKER) (test nkzl=890) 90 K/CU MM 150-450 MEAN PLATELET VOLUME (BEAKER) (test qlvd=430) 11.1 fL 9.4-12.4 NUCLEATED RED BLOOD CELLS (BEAKER) (test xicc=675) 0 /100 WBC 0-0 NEUTROPHILS RELATIVE PERCENT (BEAKER) (test htlg=516) 81 % LYMPHOCYTES RELATIVE PERCENT (BEAKER) (test fyum=081) 8 % MONOCYTES RELATIVE PERCENT (BEAKER) (test fziw=967) 9 % EOSINOPHILS RELATIVE PERCENT (BEAKER) (test aifi=951) 1 % BASOPHILS RELATIVE PERCENT (BEAKER) (test ywkm=027) 1 % NEUTROPHILS ABSOLUTE COUNT (BEAKER) (test tjkl=387) 3.76 K/ L 1.78-5.38 LYMPHOCYTES ABSOLUTE COUNT (BEAKER) (test igce=683) 0.35 K/ L 1.32-3.57 MONOCYTES ABSOLUTE COUNT (BEAKER) (test atug=691) 0.40 K/ L 0.30-0.82 EOSINOPHILS ABSOLUTE COUNT (BEAKER) (test lmfx=035) 0.04 K/ L 0.04-0.54 BASOPHILS ABSOLUTE COUNT (BEAKER) (test aaes=025) 0.03 K/ L 0.01-0.08 IMMATURE GRANULOCYTES-RELATIVE PERCENT (BEAKER) (test onyd=2121) 1 % 0-1 CALCIUM, [id number] 07:40:00* Test Item Value Reference Range Comments CALCIUM IONIZED (BEAKER) (test zsaw=352) 1.03 mmol/L 1.12-1.27 PH, BLOOD (BEAKER) (test kgol=9650) 7.54 PROTHROMBIN TIME/[id number] 07:30:00* Test Item Value Reference Range Comments PROTIME (BEAKER) (test kjxd=106) 18.4 seconds 11.7-14.7 INR (BEAKER) (test fmuj=410) 1.5 <=5.9 RECOMMENDED COUMADIN/WARFARIN INR THERAPY RANGESSTANDARD DOSE: 2.0 - 3.0 Inclu sun: PROPHYLAXIS for venous thrombosis, systemic embolization; TREATMENT for santo ous thrombosis and/or pulmonary embolus.HIGH RISK: Target INR is 2.5-3.5 for pat ients with mechanical heart valves.CT, BRAIN, WITHOUT [id number] 22:03:00Reason for exam:->Hepatic encephalopathy and tremorWhat is the patient's sedation requirement?->No SedationFINAL REPORT CT Head without contrast CLINICAL HISTORY: Hepatic encephalopathy and tremorHepatic encephalopathy TECHNIQUE: Contiguous axial images through the head without contrast. This exam was performed according to the departmental dose optimization program which includes automated exposure control, adjustment of the mA and/or kV according to the patient size, and/or use of an iterative reconstruction technique. COMPARISON: None FINDINGS: There is no CT evidence of acute infarct or intracranial hemorrhage. Chronic microvascular ischemic changes. Intracranial vascular calcifications. Mild generalized parenchymal volume loss. Ventricles are normal in size and configuration. There is no hydrocephalus, midline shift, or apparent mass effect. Basilar cisterns are pat ent. There are no extra-axial fluid collections. The skull is intact. The visual ized paranasal sinuses are well-aerated. Intraorbital contents are unremarkable. IMPRESSION: No CT evidence of acute infarct, hemorrhage, or hydrocephalus. Inv olutional changes as described above. Signed: Ermelinda Farooq Verif ied Date/Time: 05/14/2018 22:03:02 Reading Location: [address] Reading Room Electronically signed by: ERMELINDA FAROOQ MD on 8 10:03 PM POCT-GLUCOSE [id number] 21:10:00* Test Item Value Reference Range Comments POC-GLUCOSE METER (BEAKER) (test prxe=2469) 119 mg/dL 70-110 TESTED AT [facility] [address] [address] BODY FLUID CELL COUNT WITH [id number] 19:42:00* Test Item Value Reference Range Comments APPEARANCE FLUID (BEAKER) (test prnb=910) Hazy Clear COLOR FLUID (BEAKER) (test oyju=350) Yellow Colorless, Straw RBC FLUID (BEAKER) (test ksdp=674) 3230 /cu mm <=1 ADJUSTED WBC FLUID (BEAKER) (test felf=6050) 310 /cu mm <=5 LINING CELLS (BEAKER) (test olgh=2858) 0 /cu mm <=1 NEUTROPHILS FLUID (BEAKER) (test hzxm=9111) 30 % LYMPHS FLUID (BEAKER) (test zkci=047) 14 % MONO/MACROPHAGE FLUID (BEAKER) (test barv=769) 56 % EOSINOPHILS FLUID (BEAKER) (test rlvk=123) 0 % BASO FLUID (BEAKER) (test loor=761) 0 % CONTAINER BODY FLUID (BEAKER) (test brco=8014) EDTA Tube POCT-GLUCOSE [id number] 17:37:00* Test Item Value Reference Range Comments POC-GLUCOSE METER (BEAKER) (test gpcy=6814) 79 mg/dL 70-110 [address]ED AT [address] [address] U/S, [id number] 17:17:00Reason for exam:->ascites, cirrhosisFINAL REPORT Paracentesis dated 05/14/2018 Procedure: Ul trasound-guided paracentesis. Preprocedure diagnosis: Ascites Postprocedure diag nosis: Ascites Conscious sedation: None. Radiologist: Oli Engel M.D. [employer] : None Anesthesia: 1% Xylocaine mixed with sodium bicarbonate local anesthesia. Technique: After obtaining informed consent, ultrasound-guided paracentesis was performed under usual sterile technique. Using a 5 lao drainage catheter, pu ncture was made in the right lower quadrant abdomen. Approximately 9600 cc of se rosanguineous fluid was removed. Patient tolerated the procedure well without co mplication. Complication: None Graft/Implant: None Estimated Blood Loss: None Im pression: Ultrasound-guided paracentesis. Signed: Oli Engel MDReport Verified Date/Time: 05/14/2018 17:17:08 Reading Location: [facility] [id number] Ultrasound Readi [facility] -GLUCOSE [id number] 12:33:00* Test Item Value Reference Range Comments POC-GLUCOSE METER (BEAKER) (test vbfd=9423) 81 mg/dL 70-110 TESTED AT [address] [address] [id number] 09:23:00* Test Item Value Reference Range Comments PHOSPHORUS (BEAKER) (test wbcc=877) 3.0 mg/dL 2.3-4.7 [id number] 09:23:00* Test Item Value Reference Range Comments MAGNESIUM (BEAKER) (test dhrz=928) 2.5 mg/dL 1.6-2.6 COMPREHENSIVE METABOLIC [id number] 09:23:00* Test Item Value Reference Range Comments TOTAL PROTEIN (BEAKER) (test cnbu=508) 6.4 gm/dL 6.0-8.3 ALBUMIN (BEAKER) (test qsvq=9905) 3.4 g/dL 3.5-5.0 ALKALINE PHOSPHATASE (BEAKER) (test iydc=086) 229 U/L 40-150 BILIRUBIN TOTAL (BEAKER) (test arvm=628) 9.5 mg/dL 0.2-1.2 SODIUM (BEAKER) (test iyqg=555) 136 meq/L 136-145 POTASSIUM (BEAKER) (test fefw=611) 4.2 meq/L 3.5-5.1 CHLORIDE (BEAKER) (test tsjk=731) 110 meq/L 98-107 CO2 (BEAKER) (test kzxo=708) 21 meq/L 22-29 BLOOD UREA NITROGEN (BEAKER) (test xvat=357) 57 mg/dL 7-21 CREATININE (BEAKER) (test ixyf=715) 1.30 mg/dL 0.57-1.25 GLUCOSE RANDOM (BEAKER) (test qckn=675) 93 mg/dL 70-105 CALCIUM (BEAKER) (test ccef=875) 8.7 mg/dL 8.4-10.2 AST (SGOT) (BEAKER) (test ucls=460) 54 U/L 5-34 ALT (SGPT) (BEAKER) (test mmey=289) 30 U/L 6-55 EGFR (BEAKER) (test vydx=2313) 58 mL/min/1.73 sq m ESTIMATED GFR IS NOT ACCURATE CREATININE CLEARANCE IN PREDICTING GLOMERULAR FILTRATION RATE. ESTIMATED GFR IS NOT APPLICABLE FOR DIALYSIS PATIENTS. Specimen moderately ictericPROTHROMBIN TIME/[id number] 09:17:00* Test Item Value Reference Range Comments PROTIME (BEAKER) (test xsuw=463) 18.2 seconds 11.7-14.7 INR (BEAKER) (test riqt=303) 1.5 <=5.9 RECOMMENDED COUMADIN/WARFARIN INR THERAPY RANGESSTANDARD DOSE: 2.0 - 3.0 Inclu sun: PROPHYLAXIS for venous thrombosis, systemic embolization; TREATMENT for santo ous thrombosis and/or pulmonary embolus.HIGH RISK: Target INR is 2.5-3.5 for pat ients with mechanical heart valves.CALCIUM, [id number] 09:13:00* Test Item Value Reference Range Comments CALCIUM IONIZED (BEAKER) (test proh=376) 1.13 mmol/L 1.12-1.27 PH, BLOOD (BEAKER) (test cqjj=7014) 7.40 CBC W/PLT COUNT & AUTO [id number] 09:11:00* Test Item Value Reference Range Comments WHITE BLOOD CELL COUNT (BEAKER) (test fjlw=168) 4.5 K/ L 3.5-10.5 RED BLOOD CELL COUNT (BEAKER) (test wpld=596) 2.27 M/ L 4.63-6.08 HEMOGLOBIN (BEAKER) (test cyds=166) 7.4 GM/DL 13.7-17.5 HEMATOCRIT (BEAKER) (test ujtp=419) 23.2 % 40.1-51.0 MEAN CORPUSCULAR VOLUME (BEAKER) (test gurw=741) 102.2 fL 79.0-92.2 MEAN CORPUSCULAR HEMOGLOBIN (BEAKER) (test rdao=713) 32.6 pg 25.7-32.2 MEAN CORPUSCULAR HEMOGLOBIN CONC (BEAKER) (test exrw=435) 31.9 GM/DL 32.3-36.5 RED CELL DISTRIBUTION WIDTH (BEAKER) (test pkbg=871) 19.1 % 11.6-14.4 PLATELET COUNT (BEAKER) (test kutm=552) 93 K/CU MM 150-450 MEAN PLATELET VOLUME (BEAKER) (test xywe=899) 11.0 fL 9.4-12.4 NUCLEATED RED BLOOD CELLS (BEAKER) (test jupw=582) 0 /100 WBC 0-0 NEUTROPHILS RELATIVE PERCENT (BEAKER) (test pjvm=974) 82 % LYMPHOCYTES RELATIVE PERCENT (BEAKER) (test vzxg=082) 7 % MONOCYTES RELATIVE PERCENT (BEAKER) (test qrik=837) 9 % EOSINOPHILS RELATIVE PERCENT (BEAKER) (test kqun=788) 1 % BASOPHILS RELATIVE PERCENT (BEAKER) (test hjed=075) 0 % NEUTROPHILS ABSOLUTE COUNT (BEAKER) (test syxn=282) 3.64 K/ L 1.78-5.38 LYMPHOCYTES ABSOLUTE COUNT (BEAKER) (test ssst=475) 0.33 K/ L 1.32-3.57 MONOCYTES ABSOLUTE COUNT (BEAKER) (test klai=986) 0.41 K/ L 0.30-0.82 EOSINOPHILS ABSOLUTE COUNT (BEAKER) (test tmze=148) 0.04 K/ L 0.04-0.54 BASOPHILS ABSOLUTE COUNT (BEAKER) (test aghf=245) 0.01 K/ L 0.01-0.08 IMMATURE GRANULOCYTES-RELATIVE PERCENT (BEAKER) (test ctjs=9717) 0 % 0-1 POCT-GLUCOSE [id number] 08:04:00* Test Item Value Reference Range Comments POC-GLUCOSE METER (BEAKER) (test evwo=5389) 103 mg/dL 70-110 TESTED AT [address] [address] POCT-GLUCOSE [id number] 22:38:00* Test Item Value Reference Range Comments POC-GLUCOSE METER (BEAKER) (test pnve=3560) 113 mg/dL 70-110 TESTED AT [address] [address] POCT-GLUCOSE [id number] 18:19:00* Test Item Value Reference Range Comments POC-GLUCOSE METER (BEAKER) (test abkq=9231) 137 mg/dL 70-110 TESTED AT [address] [address] VANCOMYCIN LEVEL, [id number] 16:56:00* Test Item Value Reference Range Comments VANCOMYCIN TROUGH (BEAKER) (test obly=407) 21.2 ug/mL 10.0-20.0 Please draw level prior to vancomycin dose. If level is > 20 contact MD and pharmacist and hold scheduled dose. Thank youPOCT-GLUCOSE [id number] 12:49:00* Test Item Value Reference Range Comments POC-GLUCOSE METER (BEAKER) (test ophw=3314) 110 mg/dL 70-110 TESTED AT [address] [address] POCT-GLUCOSE [id number] 08:10:00* Test Item Value Reference Range Comments POC-GLUCOSE METER (BEAKER) (test vtuj=5808) 143 mg/dL 70-110 TESTED AT [facility] [address] [address] VITAMIN B12 AND [id number] 07:31:00* Test Item Value Reference Range Comments VITAMIN B12 (BEAKER) (test qzgc=545) 675 pg/mL 213-816 FOLATE (BEAKER) (test ddoh=742) 10.9 ng/mL >=7.0 [id number] 07:25:00* Test Item Value Reference Range Comments PHOSPHORUS (BEAKER) (test uyrb=681) 2.4 mg/dL 2.3-4.7 [id number] 07:25:00* Test Item Value Reference Range Comments MAGNESIUM (BEAKER) (test qcxe=543) 2.4 mg/dL 1.6-2.6 COMPREHENSIVE METABOLIC [id number] 07:25:00* Test Item Value Reference Range Comments TOTAL PROTEIN (BEAKER) (test sscg=997) 6.5 gm/dL 6.0-8.3 ALBUMIN (BEAKER) (test yvpm=5693) 3.3 g/dL 3.5-5.0 ALKALINE PHOSPHATASE (BEAKER) (test bbgb=100) 273 U/L 40-150 BILIRUBIN TOTAL (BEAKER) (test qwzg=461) 10.9 mg/dL 0.2-1.2 SODIUM (BEAKER) (test fwjx=998) 136 meq/L 136-145 POTASSIUM (BEAKER) (test ophd=791) 4.3 meq/L 3.5-5.1 CHLORIDE (BEAKER) (test kvfp=658) 110 meq/L 98-107 CO2 (BEAKER) (test crws=599) 18 meq/L 22-29 BLOOD UREA NITROGEN (BEAKER) (test imsu=184) 54 mg/dL 7-21 CREATININE (BEAKER) (test eywi=415) 1.42 mg/dL 0.57-1.25 GLUCOSE RANDOM (BEAKER) (test mpha=437) 143 mg/dL 70-105 CALCIUM (BEAKER) (test tfbm=026) 8.6 mg/dL 8.4-10.2 AST (SGOT) (BEAKER) (test msln=080) 64 U/L 5-34 ALT (SGPT) (BEAKER) (test udat=074) 34 U/L 6-55 EGFR (BEAKER) (test jjxy=0628) 53 mL/min/1.73 sq m ESTIMATED GFR IS NOT ACCURATE CREATININE CLEARANCE IN PREDICTING GLOMERULAR FILTRATION RATE. ESTIMATED GFR IS NOT APPLICABLE FOR DIALYSIS PATIENTS. Specimen moderately ictericCALCIUM, [id number] 06:53:00* Test Item Value Reference Range Comments CALCIUM IONIZED (BEAKER) (test fcnn=505) 1.10 mmol/L 1.12-1.27 PH, BLOOD (BEAKER) (test upcg=1019) 7.38 CBC W/PLT COUNT & AUTO [id number] 06:45:00* Test Item Value Reference Range Comments WHITE BLOOD CELL COUNT (BEAKER) (test rvdn=615) 6.2 K/ L 3.5-10.5 RED BLOOD CELL COUNT (BEAKER) (test erce=921) 2.50 M/ L 4.63-6.08 HEMOGLOBIN (BEAKER) (test nqxd=082) 8.0 GM/DL 13.7-17.5 HEMATOCRIT (BEAKER) (test komj=996) 25.5 % 40.1-51.0 MEAN CORPUSCULAR VOLUME (BEAKER) (test dphx=955) 102.0 fL 79.0-92.2 MEAN CORPUSCULAR HEMOGLOBIN (BEAKER) (test ufve=788) 32.0 pg 25.7-32.2 MEAN CORPUSCULAR HEMOGLOBIN CONC (BEAKER) (test owiy=263) 31.4 GM/DL 32.3-36.5 RED CELL DISTRIBUTION WIDTH (BEAKER) (test weoj=623) 19.6 % 11.6-14.4 PLATELET COUNT (BEAKER) (test hfzx=380) 101 K/CU MM 150-450 MEAN PLATELET VOLUME (BEAKER) (test vnml=725) 11.0 fL 9.4-12.4 NUCLEATED RED BLOOD CELLS (BEAKER) (test hlim=141) 0 /100 WBC 0-0 NEUTROPHILS RELATIVE PERCENT (BEAKER) (test fukv=507) 86 % LYMPHOCYTES RELATIVE PERCENT (BEAKER) (test pivy=996) 6 % MONOCYTES RELATIVE PERCENT (BEAKER) (test aatc=670) 6 % EOSINOPHILS RELATIVE PERCENT (BEAKER) (test qlpx=402) 1 % BASOPHILS RELATIVE PERCENT (BEAKER) (test ewzg=808) 0 % NEUTROPHILS ABSOLUTE COUNT (BEAKER) (test dxjf=622) 5.37 K/ L 1.78-5.38 LYMPHOCYTES ABSOLUTE COUNT (BEAKER) (test tkyl=736) 0.35 K/ L 1.32-3.57 MONOCYTES ABSOLUTE COUNT (BEAKER) (test ygyx=971) 0.38 K/ L 0.30-0.82 EOSINOPHILS ABSOLUTE COUNT (BEAKER) (test bcoq=694) 0.05 K/ L 0.04-0.54 BASOPHILS ABSOLUTE COUNT (BEAKER) (test nsek=043) 0.02 K/ L 0.01-0.08 IMMATURE GRANULOCYTES-RELATIVE PERCENT (BEAKER) (test emlu=7098) 1 % 0-1 [id number] 06:32:00* Test Item Value Reference Range Comments AMMONIA (BEAKER) (test ghut=922) 130 mol/L 18-72 PROTHROMBIN TIME/[id number] 06:31:00* Test Item Value Reference Range Comments PROTIME (BEAKER) (test itnk=522) 18.2 seconds 11.7-14.7 INR (BEAKER) (test dxqa=384) 1.5 <=5.9 RECOMMENDED COUMADIN/WARFARIN INR THERAPY RANGESSTANDARD DOSE: 2.0 - 3.0 Inclu sun: PROPHYLAXIS for venous thrombosis, systemic embolization; TREATMENT for santo ous thrombosis and/or pulmonary embolus.HIGH RISK: Target INR is 2.5-3.5 for pat ients with mechanical heart valves.POCT-GLUCOSE [id number] 21:55:00* Test Item Value Reference Range Comments POC-GLUCOSE METER (BEAKER) (test mwpk=9616) 198 mg/dL 70-110 TESTED AT [facility] [address] [address] POCT-GLUCOSE [id number] 19:03:00* Test Item Value Reference Range Comments POC-GLUCOSE METER (BEAKER) (test xapa=6196) 139 mg/dL 70-110 TESTED AT [facility] [address] [address] POCT-GLUCOSE [id number] 18:01:00* Test Item Value Reference Range Comments POC-GLUCOSE METER (BEAKER) (test elys=9903) 137 mg/dL 70-110 TESTED AT [facility] [address] [address] POCT-GLUCOSE [id number] 13:32:00* Test Item Value Reference Range Comments POC-GLUCOSE METER (BEAKER) (test ylou=5789) 220 mg/dL 70-110 TESTED AT [place] [id number] [address] POCT-GLUCOSE [id number] 08:32:00* Test Item Value Reference Range Comments POC-GLUCOSE METER (BEAKER) (test scbf=7247) 172 mg/dL 70-110 TESTED AT [facility] [address] [address] [id number] 07:18:00* Test Item Value Reference Range Comments PHOSPHORUS (BEAKER) (test xrgx=765) 2.3 mg/dL 2.3-4.7 [id number] 07:18:00* Test Item Value Reference Range Comments MAGNESIUM (BEAKER) (test lkvs=583) 2.1 mg/dL 1.6-2.6 COMPREHENSIVE METABOLIC [id number] 07:18:00* Test Item Value Reference Range Comments TOTAL PROTEIN (BEAKER) (test akbr=252) 5.6 gm/dL 6.0-8.3 ALBUMIN (BEAKER) (test mocf=7978) 3.0 g/dL 3.5-5.0 ALKALINE PHOSPHATASE (BEAKER) (test qmej=088) 197 U/L 40-150 BILIRUBIN TOTAL (BEAKER) (test zyvn=595) 10.4 mg/dL 0.2-1.2 SODIUM (BEAKER) (test knst=770) 134 meq/L 136-145 POTASSIUM (BEAKER) (test xkyz=833) 4.1 meq/L 3.5-5.1 CHLORIDE (BEAKER) (test delk=310) 109 meq/L 98-107 CO2 (BEAKER) (test omhf=723) 20 meq/L 22-29 BLOOD UREA NITROGEN (BEAKER) (test vxyw=282) 52 mg/dL 7-21 CREATININE (BEAKER) (test ymkd=518) 1.35 mg/dL 0.57-1.25 GLUCOSE RANDOM (BEAKER) (test ncuz=340) 139 mg/dL 70-105 CALCIUM (BEAKER) (test szzf=076) 8.3 mg/dL 8.4-10.2 AST (SGOT) (BEAKER) (test eewg=058) 51 U/L 5-34 ALT (SGPT) (BEAKER) (test eztg=879) 28 U/L 6-55 EGFR (BEAKER) (test tavf=4637) 56 mL/min/1.73 sq m ESTIMATED GFR IS NOT ACCURATE CREATININE CLEARANCE IN PREDICTING GLOMERULAR FILTRATION RATE. ESTIMATED GFR IS NOT APPLICABLE FOR DIALYSIS PATIENTS. Specimen moderately ictericCALCIUM, [id number] 06:56:00* Test Item Value Reference Range Comments CALCIUM IONIZED (BEAKER) (test tfkx=589) 1.11 mmol/L 1.12-1.27 PH, BLOOD (BEAKER) (test pdck=9186) 7.39 PROTHROMBIN TIME/[id number] 06:42:00* Test Item Value Reference Range Comments PROTIME (BEAKER) (test jcag=132) 18.8 seconds 11.7-14.7 INR (BEAKER) (test ogrz=961) 1.6 <=5.9 RECOMMENDED COUMADIN/WARFARIN INR THERAPY RANGESSTANDARD DOSE: 2.0 - 3.0 Inclu sun: PROPHYLAXIS for venous thrombosis, systemic embolization; TREATMENT for santo ous thrombosis and/or pulmonary embolus.HIGH RISK: Target INR is 2.5-3.5 for pat ients with mechanical heart valves.CBC W/PLT COUNT & AUTO [id number] 06:40:00* Test Item Value Reference Range Comments WHITE BLOOD CELL COUNT (BEAKER) (test xyyn=193) 4.7 K/ L 3.5-10.5 RED BLOOD CELL COUNT (BEAKER) (test xbsl=048) 2.24 M/ L 4.63-6.08 HEMOGLOBIN (BEAKER) (test laxq=957) 7.2 GM/DL 13.7-17.5 HEMATOCRIT (BEAKER) (test xsya=191) 22.8 % 40.1-51.0 MEAN CORPUSCULAR VOLUME (BEAKER) (test pdtf=752) 101.8 fL 79.0-92.2 MEAN CORPUSCULAR HEMOGLOBIN (BEAKER) (test xyga=267) 32.1 pg 25.7-32.2 MEAN CORPUSCULAR HEMOGLOBIN CONC (BEAKER) (test jaij=615) 31.6 GM/DL 32.3-36.5 RED CELL DISTRIBUTION WIDTH (BEAKER) (test epeh=198) 19.5 % 11.6-14.4 PLATELET COUNT (BEAKER) (test irkm=305) 82 K/CU MM 150-450 MEAN PLATELET VOLUME (BEAKER) (test lujy=388) 10.0 fL 9.4-12.4 NUCLEATED RED BLOOD CELLS (BEAKER) (test pfka=664) 0 /100 WBC 0-0 NEUTROPHILS RELATIVE PERCENT (BEAKER) (test kjoh=133) 86 % LYMPHOCYTES RELATIVE PERCENT (BEAKER) (test tjsp=055) 5 % MONOCYTES RELATIVE PERCENT (BEAKER) (test yykm=157) 8 % EOSINOPHILS RELATIVE PERCENT (BEAKER) (test mwsf=028) 1 % BASOPHILS RELATIVE PERCENT (BEAKER) (test zwiv=539) 0 % NEUTROPHILS ABSOLUTE COUNT (BEAKER) (test pklm=098) 3.99 K/ L 1.78-5.38 LYMPHOCYTES ABSOLUTE COUNT (BEAKER) (test gvea=173) 0.23 K/ L 1.32-3.57 MONOCYTES ABSOLUTE COUNT (BEAKER) (test tlow=369) 0.37 K/ L 0.30-0.82 EOSINOPHILS ABSOLUTE COUNT (BEAKER) (test gxsz=650) 0.03 K/ L 0.04-0.54 BASOPHILS ABSOLUTE COUNT (BEAKER) (test olwa=071) 0.02 K/ L 0.01-0.08 IMMATURE GRANULOCYTES-RELATIVE PERCENT (BEAKER) (test kkdk=5051) 1 % 0-1 POCT-GLUCOSE [id number] 23:43:00* Test Item Value Reference Range Comments POC-GLUCOSE METER (BEAKER) (test lwmr=2150) 225 mg/dL 70-110 TESTED AT [address] [address] POCT-GLUCOSE [id number] 18:02:00* Test Item Value Reference Range Comments POC-GLUCOSE METER (BEAKER) (test dnyg=0920) 160 mg/dL 70-110 TESTED AT [address] [address] POCT-GLUCOSE [id number] 17:51:00* Test Item Value Reference Range Comments POC-GLUCOSE METER (BEAKER) (test gofy=5508) 156 mg/dL 70-110 TESTED AT [address] [address] POCT-GLUCOSE [id number] 14:10:00* Test Item Value Reference Range Comments POC-GLUCOSE METER (JACKI) (test iwhp=0770) 226 mg/dL 70-110 TESTED AT [facility] [address] [address] TISSUE [id number] 13:47:00Surgical Pathology Report Case: [id number] Authorizing Provider: Raul Christianson, Collected: 05/09/2018 1630 Ordering Location: [address] Received: 05/10/2018 0838 Service Pathologist: Amauri Haque MD Specimens: A) - Polyp, Colon - Cecum, POLYPS X3- #1 TAKEN BY COLD SNARE, #2 & 3 -TAKEN BY JUMBO FRCP B) - Polyp, Colon - Transverse, POLYPS X5- TAKEN BY HOT SNARE AND JUMBO FRCP C) - Polyp, Colon - Left/Descending, POLYP-TAKEN BY COLD SNARE D) - Polyp, Colon - Rectosigmoid, POLYPS X3-TAKEN BY HOT SNARE The addendum is to specify CPT code 79537 x 4. The diagnosis is unch anged.Addendum electronically signed by Amauri Haque MD on 05/11/2018 at 1:4 7 PMA. COLON, CECUM X3, POLYPECTOMY: - POLYPOID COLONIC MUCOSA WITH NO DIAGNOS TIC ADENOMATOUS OR HYPERPLASTIC CHANGE - FOCAL ACUTE COLITISB. COLON, TRANSVER SE X5, POLYPECTOMY: - TUBULOVILLOUS ADENOMA, FRAGMENTS OF (TWO LARGEST POLYPS) - TUBULAR ADENOMA, FRAGMENTS OF (SMALLER FRAGMENTS)C. COLON, DESCENDING, MARTINA YPECTOMY: - TUBULAR ADENOMA, FRAGMENTS OFD. 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 Cecum colon polyps x3. B. Transverse colon polyps x5. C. Lef t descending colon polyp. D. Rectosigmoid colon polyps [id number] is received in four containers of formalin all labeled with the patient's information.Specimen A: Labeled "cecum colon polyps x3" consists of five fragments of rosario-pink soft tissue ranging from 0.1 to 1 cm, submitted entirely in A1.Specimen B: Labeled "t ransverse colon polyps x5" consists of multiple rosario-red fragments of round soft tissue measuring up to 1 cm in greatest dimension. The two larger grossly appear ing polyps are inked blue at the resection margins, bisected and submitted entir jayla in B1 and B2, one polyp in each cassette; B3, remainder of the smaller fragm ents of tissue.Specimen C: Labeled "left descending colon polyp" consists of thr ee fragments of rosario-red soft tissue ranging from 0.1 to 1 cm, submitted entirely in C1.Specimen D: Labeled "rectosigmoid colon polyps x3" consists of four fragm ents of rosario-red soft tissue ranging 0.2 to 0.8 cm. The resection margin of the l argest polyp is inked blue, bisected and submitted entirely as follows: D1, larg er fragment of tissue bisected; D2, remainder of tissue in the container. CG/ew Performed.POCT-GLUCOSE [id number] 08:40:00* Test Item Value Reference Range Comments POC-GLUCOSE METER (BEAKER) (test ycgm=5090) 165 mg/dL 70-110 TESTED AT [facility] [address] [address] [id number] 06:38:00* Test Item Value Reference Range Comments PHOSPHORUS (BEAKER) (test zwud=973) 3.1 mg/dL 2.3-4.7 [id number] 06:38:00* Test Item Value Reference Range Comments MAGNESIUM (BEAKER) (test dvba=335) 2.4 mg/dL 1.6-2.6 COMPREHENSIVE METABOLIC [id number] 06:38:00* Test Item Value Reference Range Comments TOTAL PROTEIN (BEAKER) (test cnrh=699) 5.4 gm/dL 6.0-8.3 ALBUMIN (BEAKER) (test ihum=9315) 3.0 g/dL 3.5-5.0 ALKALINE PHOSPHATASE (BEAKER) (test uott=529) 184 U/L 40-150 BILIRUBIN TOTAL (BEAKER) (test upfz=833) 10.9 mg/dL 0.2-1.2 SODIUM (BEAKER) (test xnbk=114) 135 meq/L 136-145 POTASSIUM (BEAKER) (test eavv=827) 4.3 meq/L 3.5-5.1 CHLORIDE (BEAKER) (test ntyf=525) 107 meq/L 98-107 CO2 (BEAKER) (test sjda=757) 20 meq/L 22-29 BLOOD UREA NITROGEN (BEAKER) (test bavd=304) 57 mg/dL 7-21 CREATININE (BEAKER) (test whow=353) 1.18 mg/dL 0.57-1.25 GLUCOSE RANDOM (BEAKER) (test omkp=513) 140 mg/dL 70-105 CALCIUM (BEAKER) (test earl=774) 8.3 mg/dL 8.4-10.2 AST (SGOT) (BEAKER) (test njqc=387) 53 U/L 5-34 ALT (SGPT) (BEAKER) (test vkmy=495) 27 U/L 6-55 EGFR (BEAKER) (test sgui=3944) 65 mL/min/1.73 sq m ESTIMATED GFR IS NOT ACCURATE CREATININE CLEARANCE IN PREDICTING GLOMERULAR FILTRATION RATE. ESTIMATED GFR IS NOT APPLICABLE FOR DIALYSIS PATIENTS. Specimen moderately ictericCALCIUM, [id number] 06:15:00* Test Item Value Reference Range Comments CALCIUM IONIZED (BEAKER) (test stbq=175) 1.11 mmol/L 1.12-1.27 PH, BLOOD (BEAKER) (test poxh=1891) 7.35 CBC W/PLT COUNT & AUTO [id number] 06:07:00* Test Item Value Reference Range Comments WHITE BLOOD CELL COUNT (BEAKER) (test psdw=933) 3.9 K/ L 3.5-10.5 RED BLOOD CELL COUNT (BEAKER) (test rweh=867) 2.03 M/ L 4.63-6.08 HEMOGLOBIN (BEAKER) (test fwhc=471) 6.8 GM/DL 13.7-17.5 HEMATOCRIT (BEAKER) (test nwql=032) 21.3 % 40.1-51.0 MEAN CORPUSCULAR VOLUME (BEAKER) (test xqmx=890) 104.9 fL 79.0-92.2 MEAN CORPUSCULAR HEMOGLOBIN (BEAKER) (test cwjc=663) 33.5 pg 25.7-32.2 MEAN CORPUSCULAR HEMOGLOBIN CONC (BEAKER) (test anpn=059) 31.9 GM/DL 32.3-36.5 RED CELL DISTRIBUTION WIDTH (BEAKER) (test pmps=123) 17.8 % 11.6-14.4 PLATELET COUNT (BEAKER) (test xsot=720) 87 K/CU MM 150-450 MEAN PLATELET VOLUME (BEAKER) (test qmly=915) 11.3 fL 9.4-12.4 NUCLEATED RED BLOOD CELLS (BEAKER) (test fhwc=318) 0 /100 WBC 0-0 NEUTROPHILS RELATIVE PERCENT (BEAKER) (test ubup=680) 82 % LYMPHOCYTES RELATIVE PERCENT (BEAKER) (test yqel=607) 8 % MONOCYTES RELATIVE PERCENT (BEAKER) (test mgnv=018) 8 % EOSINOPHILS RELATIVE PERCENT (BEAKER) (test eufv=900) 1 % BASOPHILS RELATIVE PERCENT (BEAKER) (test lyyj=779) 0 % NEUTROPHILS ABSOLUTE COUNT (BEAKER) (test cnil=944) 3.21 K/ L 1.78-5.38 LYMPHOCYTES ABSOLUTE COUNT (BEAKER) (test sicl=742) 0.30 K/ L 1.32-3.57 MONOCYTES ABSOLUTE COUNT (BEAKER) (test zvkj=180) 0.32 K/ L 0.30-0.82 EOSINOPHILS ABSOLUTE COUNT (BEAKER) (test tftf=986) 0.03 K/ L 0.04-0.54 BASOPHILS ABSOLUTE COUNT (BEAKER) (test cpzf=929) 0.01 K/ L 0.01-0.08 IMMATURE GRANULOCYTES-RELATIVE PERCENT (BEAKER) (test krvd=3675) 1 % 0-1 PROTHROMBIN [id number] 05:22:00* Test Item Value Reference Range Comments PROTIME (BEAKER) (test lsmi=054) 18.7 seconds 11.7-14.7 INR (BEAKER) (test ucrj=654) 1.6 <=5.9 RECOMMENDED COUMADIN/WARFARIN INR THERAPY RANGESSTANDARD DOSE: 2.0 - 3.0 Inclu sun: PROPHYLAXIS for venous thrombosis, systemic embolization; TREATMENT for santo ous thrombosis and/or pulmonary embolus.HIGH RISK: Target INR is 2.5-3.5 for pat ients with mechanical heart valves.POCT-GLUCOSE [id number] 22:54:00* Test Item Value Reference Range Comments POC-GLUCOSE METER (BEAKER) (test cdmz=0077) 228 mg/dL 70-110 TESTED AT [facility] [address] [address] POCT-GLUCOSE [id number] 16:34:00* Test Item Value Reference Range Comments POC-GLUCOSE METER (BEAKER) (test usaj=5222) 93 mg/dL 70-110 TESTED AT [place] [id number] [facility] [address] POCT-GLUCOSE [id number] 08:18:00* Test Item Value Reference Range Comments POC-GLUCOSE METER (BEAKER) (test xrxt=9740) 96 mg/dL 70-110 [address]ED AT [address] [address] [id number] 05:17:00* Test Item Value Reference Range Comments PHOSPHORUS (BEAKER) (test tkih=652) 3.0 mg/dL 2.3-4.7 [id number] 05:17:00* Test Item Value Reference Range Comments MAGNESIUM (BEAKER) (test uijq=063) 2.4 mg/dL 1.6-2.6 COMPREHENSIVE METABOLIC [id number] 05:17:00* Test Item Value Reference Range Comments TOTAL PROTEIN (BEAKER) (test ycue=827) 5.8 gm/dL 6.0-8.3 ALBUMIN (BEAKER) (test kehf=5407) 3.4 g/dL 3.5-5.0 ALKALINE PHOSPHATASE (BEAKER) (test uiwv=799) 173 U/L 40-150 BILIRUBIN TOTAL (BEAKER) (test flwu=978) 11.2 mg/dL 0.2-1.2 SODIUM (BEAKER) (test jjto=185) 134 meq/L 136-145 POTASSIUM (BEAKER) (test uols=277) 4.1 meq/L 3.5-5.1 CHLORIDE (BEAKER) (test ysow=707) 106 meq/L 98-107 CO2 (BEAKER) (test rgck=080) 20 meq/L 22-29 BLOOD UREA NITROGEN (BEAKER) (test jjmh=718) 64 mg/dL 7-21 CREATININE (BEAKER) (test tpmq=397) 1.26 mg/dL 0.57-1.25 GLUCOSE RANDOM (BEAKER) (test rclo=046) 96 mg/dL 70-105 CALCIUM (BEAKER) (test omsv=372) 8.5 mg/dL 8.4-10.2 AST (SGOT) (BEAKER) (test rucj=158) 44 U/L 5-34 ALT (SGPT) (BEAKER) (test ufdx=705) 26 U/L 6-55 EGFR (BEAKER) (test jkly=8160) 61 mL/min/1.73 sq m ESTIMATED GFR IS NOT ACCURATE CREATININE CLEARANCE IN PREDICTING GLOMERULAR FILTRATION RATE. ESTIMATED GFR IS NOT APPLICABLE FOR DIALYSIS PATIENTS. Specimen moderately ictericCALCIUM, [id number] 05:12:00* Test Item Value Reference Range Comments CALCIUM IONIZED (BEAKER) (test fvqo=659) 1.07 mmol/L 1.12-1.27 PH, BLOOD (BEAKER) (test kjpd=1695) 7.40 PROTHROMBIN [id number] 04:46:00* Test Item Value Reference Range Comments PROTIME (BEAKER) (test jqjr=720) 18.1 seconds 11.7-14.7 INR (BEAKER) (test krfl=290) 1.5 <=5.9 RECOMMENDED COUMADIN/WARFARIN INR THERAPY RANGESSTANDARD DOSE: 2.0 - 3.0 Inclu sun: PROPHYLAXIS for venous thrombosis, systemic embolization; TREATMENT for santo ous thrombosis and/or pulmonary embolus.HIGH RISK: Target INR is 2.5-3.5 for pat ients with mechanical heart valves.CBC W/PLT COUNT & AUTO [id number] 04:44:00* Test Item Value Reference Range Comments WHITE BLOOD CELL COUNT (BEAKER) (test zlmh=596) 4.9 K/ L 3.5-10.5 RED BLOOD CELL COUNT (BEAKER) (test xurv=512) 2.16 M/ L 4.63-6.08 HEMOGLOBIN (BEAKER) (test ssit=490) 7.1 GM/DL 13.7-17.5 HEMATOCRIT (BEAKER) (test onqd=846) 22.7 % 40.1-51.0 MEAN CORPUSCULAR VOLUME (BEAKER) (test evrc=727) 105.1 fL 79.0-92.2 MEAN CORPUSCULAR HEMOGLOBIN (BEAKER) (test zinb=698) 32.9 pg 25.7-32.2 MEAN CORPUSCULAR HEMOGLOBIN CONC (BEAKER) (test njqo=654) 31.3 GM/DL 32.3-36.5 RED CELL DISTRIBUTION WIDTH (BEAKER) (test ufpo=828) 18.1 % 11.6-14.4 PLATELET COUNT (BEAKER) (test tbpw=627) 88 K/CU MM 150-450 MEAN PLATELET VOLUME (BEAKER) (test dlwi=284) 11.1 fL 9.4-12.4 NUCLEATED RED BLOOD CELLS (BEAKER) (test gfqq=263) 0 /100 WBC 0-0 NEUTROPHILS RELATIVE PERCENT (BEAKER) (test qiub=637) 82 % LYMPHOCYTES RELATIVE PERCENT (BEAKER) (test vxis=264) 7 % MONOCYTES RELATIVE PERCENT (BEAKER) (test onrs=717) 9 % EOSINOPHILS RELATIVE PERCENT (BEAKER) (test mqpd=348) 1 % BASOPHILS RELATIVE PERCENT (BEAKER) (test wsvs=439) 0 % NEUTROPHILS ABSOLUTE COUNT (BEAKER) (test zmvy=374) 4.01 K/ L 1.78-5.38 LYMPHOCYTES ABSOLUTE COUNT (BEAKER) (test ztah=093) 0.35 K/ L 1.32-3.57 MONOCYTES ABSOLUTE COUNT (BEAKER) (test wavm=063) 0.43 K/ L 0.30-0.82 EOSINOPHILS ABSOLUTE COUNT (BEAKER) (test zohw=649) 0.04 K/ L 0.04-0.54 BASOPHILS ABSOLUTE COUNT (BEAKER) (test pung=944) 0.01 K/ L 0.01-0.08 IMMATURE GRANULOCYTES-RELATIVE PERCENT (BEAKER) (test wgbj=7210) 1 % 0-1 POCT-GLUCOSE [id number] 18:11:00* Test Item Value Reference Range Comments POC-GLUCOSE METER (BEAKER) (test ilkk=5133) 76 mg/dL 70-110 TESTED AT [facility] [address] [address] POCT-GLUCOSE [id number] 13:40:00* Test Item Value Reference Range Comments POC-GLUCOSE METER (BEAKER) (test bbgr=6026) 76 mg/dL 70-110 TESTED AT [facility] [address] [address] POCT-GLUCOSE [id number] 08:31:00* Test Item Value Reference Range Comments POC-GLUCOSE METER (BEAKER) (test vwav=1926) 85 mg/dL 70-110 TESTED AT [facility] [address] [place] [address] CALCIUM, [id number] 05:34:00* Test Item Value Reference Range Comments CALCIUM IONIZED (BEAKER) (test tzgk=471) 1.07 mmol/L 1.12-1.27 PH, BLOOD (BEAKER) (test pdet=7190) 7.39 [id number] 05:13:00* Test Item Value Reference Range Comments PHOSPHORUS (BEAKER) (test rrgh=590) 2.2 mg/dL 2.3-4.7 [id number] 05:13:00* Test Item Value Reference Range Comments MAGNESIUM (BEAKER) (test nqld=545) 2.5 mg/dL 1.6-2.6 COMPREHENSIVE METABOLIC [id number] 05:13:00* Test Item Value Reference Range Comments TOTAL PROTEIN (BEAKER) (test zqyf=389) 6.7 gm/dL 6.0-8.3 ALBUMIN (BEAKER) (test pfqy=6139) 3.9 g/dL 3.5-5.0 ALKALINE PHOSPHATASE (BEAKER) (test oxhr=862) 197 U/L 40-150 BILIRUBIN TOTAL (BEAKER) (test guoi=747) 12.5 mg/dL 0.2-1.2 SODIUM (BEAKER) (test stkm=844) 132 meq/L 136-145 POTASSIUM (BEAKER) (test agyc=691) 4.5 meq/L 3.5-5.1 CHLORIDE (BEAKER) (test kixy=720) 102 meq/L 98-107 CO2 (BEAKER) (test crqy=875) 19 meq/L 22-29 BLOOD UREA NITROGEN (BEAKER) (test obwp=557) 69 mg/dL 7-21 CREATININE (BEAKER) (test rlyf=164) 1.41 mg/dL 0.57-1.25 GLUCOSE RANDOM (BEAKER) (test dkjz=293) 93 mg/dL 70-105 CALCIUM (BEAKER) (test dwsg=051) 8.6 mg/dL 8.4-10.2 AST (SGOT) (BEAKER) (test lgkd=966) 42 U/L 5-34 ALT (SGPT) (BEAKER) (test pegw=982) 30 U/L 6-55 EGFR (BEAKER) (test zvxq=5048) 53 mL/min/1.73 sq m ESTIMATED GFR IS NOT ACCURATE CREATININE CLEARANCE IN PREDICTING GLOMERULAR FILTRATION RATE. ESTIMATED GFR IS NOT APPLICABLE FOR DIALYSIS PATIENTS. Specimen markedly ictericPROTHROMBIN [id number] 05:02:00* Test Item Value Reference Range Comments PROTIME (BEAKER) (test scye=081) 17.8 seconds 11.7-14.7 INR (BEAKER) (test kedo=166) 1.5 <=5.9 RECOMMENDED COUMADIN/WARFARIN INR THERAPY RANGESSTANDARD DOSE: 2.0 - 3.0 Inclu sun: PROPHYLAXIS for venous thrombosis, systemic embolization; TREATMENT for santo ous thrombosis and/or pulmonary embolus.HIGH RISK: Target INR is 2.5-3.5 for pat ients with mechanical heart valves.CBC W/PLT COUNT & AUTO [id number] 05:01:00* Test Item Value Reference Range Comments WHITE BLOOD CELL COUNT (BEAKER) (test qble=758) 8.6 K/ L 3.5-10.5 RED BLOOD CELL COUNT (BEAKER) (test ejwg=511) 2.36 M/ L 4.63-6.08 HEMOGLOBIN (BEAKER) (test bziq=035) 7.8 GM/DL 13.7-17.5 HEMATOCRIT (BEAKER) (test bptn=881) 24.6 % 40.1-51.0 MEAN CORPUSCULAR VOLUME (BEAKER) (test arvk=419) 104.2 fL 79.0-92.2 MEAN CORPUSCULAR HEMOGLOBIN (BEAKER) (test jdre=671) 33.1 pg 25.7-32.2 MEAN CORPUSCULAR HEMOGLOBIN CONC (BEAKER) (test ohfs=269) 31.7 GM/DL 32.3-36.5 RED CELL DISTRIBUTION WIDTH (BEAKER) (test zgts=984) 17.9 % 11.6-14.4 PLATELET COUNT (BEAKER) (test atjn=017) 109 K/CU MM 150-450 MEAN PLATELET VOLUME (BEAKER) (test pngv=684) 10.9 fL 9.4-12.4 NUCLEATED RED BLOOD CELLS (BEAKER) (test bxnf=126) 0 /100 WBC 0-0 NEUTROPHILS RELATIVE PERCENT (BEAKER) (test usfn=268) 83 % LYMPHOCYTES RELATIVE PERCENT (BEAKER) (test uvfm=747) 7 % MONOCYTES RELATIVE PERCENT (BEAKER) (test ojxc=936) 9 % EOSINOPHILS RELATIVE PERCENT (BEAKER) (test ofyv=722) 1 % BASOPHILS RELATIVE PERCENT (BEAKER) (test lpuw=594) 0 % NEUTROPHILS ABSOLUTE COUNT (BEAKER) (test aiwq=133) 7.14 K/ L 1.78-5.38 LYMPHOCYTES ABSOLUTE COUNT (BEAKER) (test sqgl=865) 0.56 K/ L 1.32-3.57 MONOCYTES ABSOLUTE COUNT (BEAKER) (test phtx=944) 0.73 K/ L 0.30-0.82 EOSINOPHILS ABSOLUTE COUNT (BEAKER) (test sgcd=164) 0.04 K/ L 0.04-0.54 BASOPHILS ABSOLUTE COUNT (BEAKER) (test adrh=646) 0.02 K/ L 0.01-0.08 IMMATURE GRANULOCYTES-RELATIVE PERCENT (BEAKER) (test lzkg=0378) 1 % 0-1 POCT-GLUCOSE [id number] 22:31:00* Test Item Value Reference Range Comments POC-GLUCOSE METER (BEAKER) (test rlny=0790) 205 mg/dL 70-110 TESTED AT [address] [address] POCT-GLUCOSE [id number] 17:21:00* Test Item Value Reference Range Comments POC-GLUCOSE METER (BEAKER) (test lqcx=2568) 171 mg/dL 70-110 TESTED AT [address] [address] BODY FLUID CULTURE + GRAM [id number] 13:58:00* Test Item Value Reference Range Comments CULTURE (BEAKER) (test ecfx=0405) No growth GRAM STAIN RESULT (BEAKER) (test peuh=2872) No WBCs GRAM STAIN RESULT (BEAKER) (test yhkv=33346) No organisms seen POCT-GLUCOSE [id number] 13:50:00* Test Item Value Reference Range Comments POC-GLUCOSE METER (BEAKER) (test bmqv=6761) 285 mg/dL 70-110 TESTED AT [address] [address] POCT-GLUCOSE [id number] 12:24:00* Test Item Value Reference Range Comments POC-GLUCOSE METER (BEAKER) (test etbz=3596) 329 mg/dL 70-110 TESTED AT [facility] [address] [address] FUNGUS CULTURE + [id number] 08:05:00* Test Item Value Reference Range Comments CULTURE (BEAKER) (test tkft=7787) 1 out of 2 media Penicillium species FUNGUS SMEAR (BEAKER) (test dtlb=9576) No fungi seen POCT-GLUCOSE [id number] 07:50:00* Test Item Value Reference Range Comments POC-GLUCOSE METER (BEAKER) (test qoih=3904) 178 mg/dL 70-110 TESTED AT [facility] [address] [address] CALCIUM, [id number] 06:19:00* Test Item Value Reference Range Comments CALCIUM IONIZED (BEAKER) (test ltnu=367) 1.06 mmol/L 1.12-1.27 PH, BLOOD (BEAKER) (test xfir=8346) 7.45 B-TYPE NATRIURETIC FACTOR (BNP)2018-05-08 05:26:00* Test Item Value Reference Range Comments B-TYPE NATRIURETIC PEPTIDE (BEAKER) (test vehj=159) 58 pg/mL 0-100 [id number] 05:23:00* Test Item Value Reference Range Comments PHOSPHORUS (BEAKER) (test vvmh=540) 2.4 mg/dL 2.3-4.7 [id number] 05:23:00* Test Item Value Reference Range Comments MAGNESIUM (BEAKER) (test qpke=138) 2.6 mg/dL 1.6-2.6 COMPREHENSIVE METABOLIC [id number] 05:23:00* Test Item Value Reference Range Comments TOTAL PROTEIN (BEAKER) (test nouk=019) 6.1 gm/dL 6.0-8.3 ALBUMIN (BEAKER) (test kmed=8080) 3.3 g/dL 3.5-5.0 ALKALINE PHOSPHATASE (BEAKER) (test vrgf=909) 197 U/L 40-150 BILIRUBIN TOTAL (BEAKER) (test oihr=133) 11.5 mg/dL 0.2-1.2 SODIUM (BEAKER) (test xtqs=272) 136 meq/L 136-145 POTASSIUM (BEAKER) (test muzu=354) 5.0 meq/L 3.5-5.1 CHLORIDE (BEAKER) (test evui=381) 108 meq/L 98-107 CO2 (BEAKER) (test dygq=640) 22 meq/L 22-29 BLOOD UREA NITROGEN (BEAKER) (test wlmu=843) 76 mg/dL 7-21 CREATININE (BEAKER) (test undy=236) 1.39 mg/dL 0.57-1.25 GLUCOSE RANDOM (BEAKER) (test abno=059) 169 mg/dL 70-105 CALCIUM (BEAKER) (test gdac=709) 8.7 mg/dL 8.4-10.2 AST (SGOT) (BEAKER) (test bvhp=205) 42 U/L 5-34 ALT (SGPT) (BEAKER) (test cxao=090) 29 U/L 6-55 EGFR (BEAKER) (test nvuo=5551) 54 mL/min/1.73 sq m ESTIMATED GFR IS NOT ACCURATE CREATININE CLEARANCE IN PREDICTING GLOMERULAR FILTRATION RATE. ESTIMATED GFR IS NOT APPLICABLE FOR DIALYSIS PATIENTS. Specimen moderately ictericPROTHROMBIN [id number] 05:14:00* Test Item Value Reference Range Comments PROTIME (BEAKER) (test tdrz=647) 17.4 seconds 11.7-14.7 INR (BEAKER) (test zcnr=685) 1.4 <=5.9 RECOMMENDED COUMADIN/WARFARIN INR THERAPY RANGESSTANDARD DOSE: 2.0 - 3.0 Inclu sun: PROPHYLAXIS for venous thrombosis, systemic embolization; TREATMENT for santo ous thrombosis and/or pulmonary embolus.HIGH RISK: Target INR is 2.5-3.5 for pat ients with mechanical heart valves.CBC W/PLT COUNT & AUTO [id number] 05:09:00* Test Item Value Reference Range Comments WHITE BLOOD CELL COUNT (BEAKER) (test fniy=088) 6.2 K/ L 3.5-10.5 RED BLOOD CELL COUNT (BEAKER) (test pood=383) 2.27 M/ L 4.63-6.08 HEMOGLOBIN (BEAKER) (test vefq=273) 7.5 GM/DL 13.7-17.5 HEMATOCRIT (BEAKER) (test uvgh=638) 24.2 % 40.1-51.0 MEAN CORPUSCULAR VOLUME (BEAKER) (test xhfe=620) 106.6 fL 79.0-92.2 MEAN CORPUSCULAR HEMOGLOBIN (BEAKER) (test qokb=285) 33.0 pg 25.7-32.2 MEAN CORPUSCULAR HEMOGLOBIN CONC (BEAKER) (test wyvs=042) 31.0 GM/DL 32.3-36.5 RED CELL DISTRIBUTION WIDTH (BEAKER) (test jcmu=496) 18.0 % 11.6-14.4 PLATELET COUNT (BEAKER) (test lfvv=470) 96 K/CU MM 150-450 MEAN PLATELET VOLUME (BEAKER) (test oieb=902) 10.9 fL 9.4-12.4 NUCLEATED RED BLOOD CELLS (BEAKER) (test nylt=692) 0 /100 WBC 0-0 NEUTROPHILS RELATIVE PERCENT (BEAKER) (test gkzc=341) 86 % LYMPHOCYTES RELATIVE PERCENT (BEAKER) (test ddpw=677) 4 % MONOCYTES RELATIVE PERCENT (BEAKER) (test bnfu=493) 8 % EOSINOPHILS RELATIVE PERCENT (BEAKER) (test xabs=316) 1 % BASOPHILS RELATIVE PERCENT (BEAKER) (test sfpk=085) 0 % NEUTROPHILS ABSOLUTE COUNT (BEAKER) (test omys=000) 5.30 K/ L 1.78-5.38 LYMPHOCYTES ABSOLUTE COUNT (BEAKER) (test aocj=300) 0.24 K/ L 1.32-3.57 MONOCYTES ABSOLUTE COUNT (BEAKER) (test fgiq=996) 0.51 K/ L 0.30-0.82 EOSINOPHILS ABSOLUTE COUNT (BEAKER) (test gatu=833) 0.04 K/ L 0.04-0.54 BASOPHILS ABSOLUTE COUNT (BEAKER) (test aqdw=085) 0.02 K/ L 0.01-0.08 IMMATURE GRANULOCYTES-RELATIVE PERCENT (BEAKER) (test pigx=6078) 1 % 0-1 POCT-GLUCOSE [id number] 23:59:00* Test Item Value Reference Range Comments POC-GLUCOSE METER (BEAKER) (test vbif=0938) 220 mg/dL 70-110 TESTED AT [facility] [address] [address] [id number] 18:26:00* Test Item Value Reference Range Comments SODIUM (BEAKER) (test tptl=633) 133 meq/L 136-145 POTASSIUM (BEAKER) (test nsny=266) 5.2 meq/L 3.5-5.1 CHLORIDE (BEAKER) (test bfrs=420) 106 meq/L 98-107 CO2 (BEAKER) (test yzcd=241) 21 meq/L 22-29 Call if K > 5POCT-GLUCOSE [id number] 17:43:00* Test Item Value Reference Range Comments POC-GLUCOSE METER (BEAKER) (test gsrz=7458) 333 mg/dL 70-110 Notified JOSE LEAL/TESTED AT [address] [address] RAD, CHEST, 1 VIEW, NON [id number] 12:06:00Reason for exam:->check picc placement Should this be performed at the bedside?->YesFINAL REPORT Chest one view. Clinical history: check picc placement Comparison: April 26, 2018 Discussion: A frontal chest is provided. Cardiomediastinal contours are unchanged. A left PICC line has been placed, the tip projects over the cavoatrial junction. There is elevation of the right hemidiaphragm, a small right effusion is also suspected. There is also right basilar atelectasis. Left lung is grossly clear. Central vessels appear mildly prominent. No pneumothorax. Signed: Jules Cornell Verified Date/Time: 05/07/2018 12:06:41 Reading Location: [facility] Radiology Reading Room -GLUCOSE [id number] 12:01:00* Test Item Value Reference Range Comments POC-GLUCOSE METER (BEAKER) (test awhw=0448) 241 mg/dL 70-110 TESTED AT [place] [id number] [address] POCT-GLUCOSE [id number] 08:45:00* Test Item Value Reference Range Comments POC-GLUCOSE METER (BEAKER) (test csvz=9202) 167 mg/dL 70-110 TESTED AT [address] [address] CALCIUM, [id number] 06:34:00* Test Item Value Reference Range Comments CALCIUM IONIZED (BEAKER) (test wqyb=713) 1.15 mmol/L 1.12-1.27 PH, BLOOD (BEAKER) (test qyjo=2311) 7.32 [id number] 04:20:00* Test Item Value Reference Range Comments PHOSPHORUS (BEAKER) (test xyls=463) 2.4 mg/dL 2.3-4.7 [id number] 04:20:00* Test Item Value Reference Range Comments MAGNESIUM (BEAKER) (test onkp=559) 2.8 mg/dL 1.6-2.6 COMPREHENSIVE METABOLIC [id number] 04:20:00* Test Item Value Reference Range Comments TOTAL PROTEIN (BEAKER) (test fclj=669) 6.3 gm/dL 6.0-8.3 ALBUMIN (BEAKER) (test mapd=3880) 3.3 g/dL 3.5-5.0 ALKALINE PHOSPHATASE (BEAKER) (test gbnw=999) 197 U/L 40-150 BILIRUBIN TOTAL (BEAKER) (test fqtm=608) 12.4 mg/dL 0.2-1.2 SODIUM (BEAKER) (test eesf=189) 134 meq/L 136-145 POTASSIUM (BEAKER) (test acxp=468) 5.2 meq/L 3.5-5.1 CHLORIDE (BEAKER) (test arwa=679) 107 meq/L 98-107 CO2 (BEAKER) (test lzod=203) 21 meq/L 22-29 BLOOD UREA NITROGEN (BEAKER) (test ixzv=325) 78 mg/dL 7-21 CREATININE (BEAKER) (test ipwi=692) 1.47 mg/dL 0.57-1.25 GLUCOSE RANDOM (BEAKER) (test bimy=569) 136 mg/dL 70-105 CALCIUM (BEAKER) (test shzp=351) 8.8 mg/dL 8.4-10.2 AST (SGOT) (BEAKER) (test cxof=166) 44 U/L 5-34 ALT (SGPT) (BEAKER) (test kcjo=307) 31 U/L 6-55 EGFR (BEAKER) (test xmed=6229) 51 mL/min/1.73 sq m ESTIMATED GFR IS NOT ACCURATE CREATININE CLEARANCE IN PREDICTING GLOMERULAR FILTRATION RATE. ESTIMATED GFR IS NOT APPLICABLE FOR DIALYSIS PATIENTS. Specimen markedly ictericPROTHROMBIN [id number] 04:09:00* Test Item Value Reference Range Comments PROTIME (BEAKER) (test jnur=833) 17.4 seconds 11.7-14.7 INR (BEAKER) (test lzze=902) 1.4 <=5.9 RECOMMENDED COUMADIN/WARFARIN INR THERAPY RANGESSTANDARD DOSE: 2.0 - 3.0 Inclu sun: PROPHYLAXIS for venous thrombosis, systemic embolization; TREATMENT for santo ous thrombosis and/or pulmonary embolus.HIGH RISK: Target INR is 2.5-3.5 for pat ients with mechanical heart valves.CBC W/PLT COUNT & AUTO [id number] 04:07:00* Test Item Value Reference Range Comments WHITE BLOOD CELL COUNT (BEAKER) (test pdxp=512) 5.5 K/ L 3.5-10.5 RED BLOOD CELL COUNT (BEAKER) (test amjp=585) 2.44 M/ L 4.63-6.08 HEMOGLOBIN (BEAKER) (test mhvy=513) 7.9 GM/DL 13.7-17.5 HEMATOCRIT (BEAKER) (test nrts=380) 25.9 % 40.1-51.0 MEAN CORPUSCULAR VOLUME (BEAKER) (test rdql=238) 106.1 fL 79.0-92.2 MEAN CORPUSCULAR HEMOGLOBIN (BEAKER) (test oncx=918) 32.4 pg 25.7-32.2 MEAN CORPUSCULAR HEMOGLOBIN CONC (BEAKER) (test naht=201) 30.5 GM/DL 32.3-36.5 RED CELL DISTRIBUTION WIDTH (BEAKER) (test uwtb=084) 17.7 % 11.6-14.4 PLATELET COUNT (BEAKER) (test bdlt=340) 101 K/CU MM 150-450 MEAN PLATELET VOLUME (BEAKER) (test rplc=679) 11.1 fL 9.4-12.4 NUCLEATED RED BLOOD CELLS (BEAKER) (test hzgw=990) 0 /100 WBC 0-0 NEUTROPHILS RELATIVE PERCENT (BEAKER) (test ejpy=221) 79 % LYMPHOCYTES RELATIVE PERCENT (BEAKER) (test dstf=346) 8 % MONOCYTES RELATIVE PERCENT (BEAKER) (test ovum=338) 10 % EOSINOPHILS RELATIVE PERCENT (BEAKER) (test pcec=137) 2 % BASOPHILS RELATIVE PERCENT (BEAKER) (test ldko=428) 0 % NEUTROPHILS ABSOLUTE COUNT (BEAKER) (test lxze=046) 4.34 K/ L 1.78-5.38 LYMPHOCYTES ABSOLUTE COUNT (BEAKER) (test falw=691) 0.45 K/ L 1.32-3.57 MONOCYTES ABSOLUTE COUNT (BEAKER) (test cryc=712) 0.56 K/ L 0.30-0.82 EOSINOPHILS ABSOLUTE COUNT (BEAKER) (test olfb=800) 0.09 K/ L 0.04-0.54 BASOPHILS ABSOLUTE COUNT (BEAKER) (test xttd=982) 0.02 K/ L 0.01-0.08 IMMATURE GRANULOCYTES-RELATIVE PERCENT (BEAKER) (test cppk=8427) 1 % 0-1 ANAEROBIC [id number] 03:40:00* Test Item Value Reference Range Comments CULTURE (BEAKER) (test rovt=8526) No anaerobes isolated POCT-GLUCOSE [id number] 22:04:00* Test Item Value Reference Range Comments POC-GLUCOSE METER (BEAKER) (test furd=6988) 335 mg/dL 70-110 Verify with Lab draw/TESTED AT [address] [address] POCT-GLUCOSE [id number] 18:09:00* Test Item Value Reference Range Comments POC-GLUCOSE METER (BEAKER) (test dvhh=6510) 243 mg/dL 70-110 TESTED AT [address] [address] POCT-GLUCOSE [id number] 13:44:00* Test Item Value Reference Range Comments POC-GLUCOSE METER (BEAKER) (test xfbw=2713) 316 mg/dL 70-110 Notified JOSE LEAL/TESTED AT [address] [address] ANTI-MITOCHONDRIAL AB, REFLEX TO [id number] 11:17:00* Test Item Value Reference Range Comments SCAN RESULT (test uozg=[id number]) POCT-GLUCOSE [id number] 08:07:00* Test Item Value Reference Range Comments POC-GLUCOSE METER (BEAKER) (test xqlc=7542) 241 mg/dL 70-110 TESTED AT [address] [address] POCT-GLUCOSE [id number] 07:58:00* Test Item Value Reference Range Comments POC-GLUCOSE METER (BEAKER) (test aatw=1398) 255 mg/dL 70-110 TESTED AT [address] [address] COMPREHENSIVE METABOLIC [id number] 06:59:00* Test Item Value Reference Range Comments TOTAL PROTEIN (BEAKER) (test lxbo=471) 6.1 gm/dL 6.0-8.3 ALBUMIN (BEAKER) (test cylh=8307) 3.3 g/dL 3.5-5.0 ALKALINE PHOSPHATASE (BEAKER) (test umqj=149) 196 U/L 40-150 BILIRUBIN TOTAL (BEAKER) (test cwxk=025) 14.1 mg/dL 0.2-1.2 SODIUM (BEAKER) (test rknx=853) 130 meq/L 136-145 POTASSIUM (BEAKER) (test lkmd=812) 4.9 meq/L 3.5-5.1 CHLORIDE (BEAKER) (test phsk=899) 103 meq/L 98-107 CO2 (BEAKER) (test hrpz=271) 18 meq/L 22-29 BLOOD UREA NITROGEN (BEAKER) (test xovl=374) 75 mg/dL 7-21 CREATININE (BEAKER) (test yqoz=294) 1.40 mg/dL 0.57-1.25 GLUCOSE RANDOM (BEAKER) (test zgcg=022) 234 mg/dL 70-105 CALCIUM (BEAKER) (test rjeo=920) 8.5 mg/dL 8.4-10.2 AST (SGOT) (BEAKER) (test mecs=526) 47 U/L 5-34 ALT (SGPT) (BEAKER) (test tbgy=941) 27 U/L 6-55 EGFR (BEAKER) (test ovpw=8262) 54 mL/min/1.73 sq m ESTIMATED GFR IS NOT ACCURATE CREATININE CLEARANCE IN PREDICTING GLOMERULAR FILTRATION RATE. ESTIMATED GFR IS NOT APPLICABLE FOR DIALYSIS PATIENTS. Specimen markedly ictericPOCT-GLUCOSE [id number] 06:50:00* Test Item Value Reference Range Comments POC-GLUCOSE METER (BEAKER) (test kppk=9744) 171 mg/dL 70-110 TESTED AT [facility] [address] [address] CBC W/PLT COUNT & AUTO [id number] 06:41:00* Test Item Value Reference Range Comments WHITE BLOOD CELL COUNT (BEAKER) (test iuhy=347) 5.3 K/ L 3.5-10.5 RED BLOOD CELL COUNT (BEAKER) (test ntrq=840) 2.30 M/ L 4.63-6.08 HEMOGLOBIN (BEAKER) (test lqyx=561) 7.5 GM/DL 13.7-17.5 HEMATOCRIT (BEAKER) (test jcsl=516) 23.9 % 40.1-51.0 MEAN CORPUSCULAR VOLUME (BEAKER) (test pppf=585) 103.9 fL 79.0-92.2 MEAN CORPUSCULAR HEMOGLOBIN (BEAKER) (test werm=334) 32.6 pg 25.7-32.2 MEAN CORPUSCULAR HEMOGLOBIN CONC (BEAKER) (test slsd=007) 31.4 GM/DL 32.3-36.5 RED CELL DISTRIBUTION WIDTH (BEAKER) (test uvot=754) 17.4 % 11.6-14.4 PLATELET COUNT (BEAKER) (test jsgf=156) 94 K/CU MM 150-450 MEAN PLATELET VOLUME (BEAKER) (test aqdl=927) 11.2 fL 9.4-12.4 NUCLEATED RED BLOOD CELLS (BEAKER) (test onhn=088) 0 /100 WBC 0-0 NEUTROPHILS RELATIVE PERCENT (BEAKER) (test rjiw=994) 83 % LYMPHOCYTES RELATIVE PERCENT (BEAKER) (test hiws=000) 5 % MONOCYTES RELATIVE PERCENT (BEAKER) (test pcgx=186) 10 % EOSINOPHILS RELATIVE PERCENT (BEAKER) (test dvdq=516) 1 % BASOPHILS RELATIVE PERCENT (BEAKER) (test jhzq=062) 0 % NEUTROPHILS ABSOLUTE COUNT (BEAKER) (test kase=323) 4.40 K/ L 1.78-5.38 LYMPHOCYTES ABSOLUTE COUNT (BEAKER) (test vnxs=836) 0.26 K/ L 1.32-3.57 MONOCYTES ABSOLUTE COUNT (BEAKER) (test fmkw=728) 0.52 K/ L 0.30-0.82 EOSINOPHILS ABSOLUTE COUNT (BEAKER) (test bqxa=302) 0.07 K/ L 0.04-0.54 BASOPHILS ABSOLUTE COUNT (BEAKER) (test geto=029) 0.02 K/ L 0.01-0.08 IMMATURE GRANULOCYTES-RELATIVE PERCENT (BEAKER) (test icvv=6472) 1 % 0-1 PROTHROMBIN [id number] 06:38:00* Test Item Value Reference Range Comments PROTIME (BEAKER) (test eugb=205) 17.6 seconds 11.7-14.7 INR (BEAKER) (test dxfd=426) 1.5 <=5.9 RECOMMENDED COUMADIN/WARFARIN INR THERAPY RANGESSTANDARD DOSE: 2.0 - 3.0 Inclu sun: PROPHYLAXIS for venous thrombosis, systemic embolization; TREATMENT for santo ous thrombosis and/or pulmonary embolus.HIGH RISK: Target INR is 2.5-3.5 for pat ients with mechanical heart valves.BODY FLUID CELL COUNT WITH DIFFERENTIAL 2018-05-05 18:11:00* Test Item Value Reference Range Comments APPEARANCE FLUID (BEAKER) (test womt=882) Hazy Clear COLOR FLUID (BEAKER) (test ulpd=921) Yellow Colorless, Straw RBC FLUID (BEAKER) (test bdej=255) 3850 /cu mm <=1 ADJUSTED WBC FLUID (BEAKER) (test rzka=7789) 386 /cu mm <=5 LINING CELLS (BEAKER) (test nmic=5980) 4 /cu mm <=1 NEUTROPHILS FLUID (BEAKER) (test wqxh=3089) 29 % LYMPHS FLUID (BEAKER) (test jtzv=207) 19 % MONO/MACROPHAGE FLUID (BEAKER) (test dlzp=816) 52 % EOSINOPHILS FLUID (BEAKER) (test kmzo=958) 0 % BASO FLUID (BEAKER) (test iour=104) 0 % CONTAINER BODY FLUID (BEAKER) (test vpin=3763) EDTA Tube POCT-GLUCOSE [id number] 17:29:00* Test Item Value Reference Range Comments POC-GLUCOSE METER (BEAKER) (test qjmx=1151) 193 mg/dL 70-110 TESTED AT [address] [address] U/S, [id number] 17:22:00Please give 50g albumin if greater than 5 liters removed, 25mg albumin if greater than 3 liters removedReason for exam:-> ascites, SBP, assess for persistent infectionShould this be performed at the bed side?->NoFINAL REPORT PROCEDURE: Ultrasound-guided paracentesis. INDICATION: Ascites, SBP, assess for persistent infection. DESCRIPTION: After obtaining informed written consent, ultrasound scan of the abdomen identified ascites in the right lower quadrant. The overlying skin was prepped and draped in the usual, sterile fashion and local 1% lidocaine anesthesia was administered. A 5 Maldivian catheter was advanced into the peritoneal cavity and 5400 mL of clear samreen fluid was removed. The catheter was removed without immediate complication. Samples were sent for analysis. IMPRESSION:Uncomplicated ultrasound-guided paracentesis with 5400 mL of fluid removed. Signed: Lucina Stephens MDReport Verified Date/Time: 05/05/2018 17:22:29 Reading Location: [facility] C013Y MS Body Reading Room OMYCIN LEVEL, TROUGH 2018-05-05 14:52:00* Test Item Value Reference Range Comments VANCOMYCIN TROUGH (BEAKER) (test vcth=551) 18.0 ug/mL 10.0-20.0 Draw prior to PM dose today 05/05. Please inform MD of result prior to dose POCT-GLUCOSE [id number] 13:14:00* Test Item Value Reference Range Comments POC-GLUCOSE METER (BEAKER) (test bruu=6533) 334 mg/dL 70-110 Notified JOSE LEAL/TESTED AT [address] [address] COMPREHENSIVE METABOLIC [id number] 08:12:00* Test Item Value Reference Range Comments TOTAL PROTEIN (BEAKER) (test iwlu=154) 6.1 gm/dL 6.0-8.3 ALBUMIN (BEAKER) (test styc=3795) 3.2 g/dL 3.5-5.0 ALKALINE PHOSPHATASE (BEAKER) (test ilkl=704) 198 U/L 40-150 BILIRUBIN TOTAL (BEAKER) (test ovrb=977) 16.4 mg/dL 0.2-1.2 SODIUM (BEAKER) (test qnzq=271) 128 meq/L 136-145 POTASSIUM (BEAKER) (test qrce=569) 4.6 meq/L 3.5-5.1 CHLORIDE (BEAKER) (test biil=798) 102 meq/L 98-107 CO2 (BEAKER) (test ynnz=385) 19 meq/L 22-29 BLOOD UREA NITROGEN (BEAKER) (test ncrc=692) 77 mg/dL 7-21 CREATININE (BEAKER) (test vlhx=987) 1.51 mg/dL 0.57-1.25 GLUCOSE RANDOM (BEAKER) (test ubak=444) 190 mg/dL 70-105 CALCIUM (BEAKER) (test wiwh=267) 8.5 mg/dL 8.4-10.2 AST (SGOT) (BEAKER) (test kvzu=723) 41 U/L 5-34 ALT (SGPT) (BEAKER) (test ngss=048) 24 U/L 6-55 EGFR (BEAKER) (test hxwi=4252) 49 mL/min/1.73 sq m ESTIMATED GFR IS NOT ACCURATE CREATININE CLEARANCE IN PREDICTING GLOMERULAR FILTRATION RATE. ESTIMATED GFR IS NOT APPLICABLE FOR DIALYSIS PATIENTS. POCT-GLUCOSE [id number] 07:47:00* Test Item Value Reference Range Comments POC-GLUCOSE METER (BEAKER) (test cuie=1824) 260 mg/dL 70-110 TESTED AT [facility] [address] [address] CBC W/PLT COUNT & AUTO [id number] 06:21:00* Test Item Value Reference Range Comments WHITE BLOOD CELL COUNT (BEAKER) (test hoyr=126) 6.0 K/ L 3.5-10.5 RED BLOOD CELL COUNT (BEAKER) (test bqzs=444) 2.43 M/ L 4.63-6.08 HEMOGLOBIN (BEAKER) (test hlgx=803) 8.0 GM/DL 13.7-17.5 HEMATOCRIT (BEAKER) (test gvwh=805) 24.8 % 40.1-51.0 MEAN CORPUSCULAR VOLUME (BEAKER) (test favi=328) 102.1 fL 79.0-92.2 MEAN CORPUSCULAR HEMOGLOBIN (BEAKER) (test fhqq=873) 32.9 pg 25.7-32.2 MEAN CORPUSCULAR HEMOGLOBIN CONC (BEAKER) (test szrc=189) 32.3 GM/DL 32.3-36.5 RED CELL DISTRIBUTION WIDTH (BEAKER) (test xtcf=514) 17.2 % 11.6-14.4 PLATELET COUNT (BEAKER) (test fykp=394) 97 K/CU MM 150-450 MEAN PLATELET VOLUME (BEAKER) (test smut=166) 11.3 fL 9.4-12.4 NUCLEATED RED BLOOD CELLS (BEAKER) (test ktwy=844) 0 /100 WBC 0-0 NEUTROPHILS RELATIVE PERCENT (BEAKER) (test yogm=675) 81 % LYMPHOCYTES RELATIVE PERCENT (BEAKER) (test pxcf=519) 7 % MONOCYTES RELATIVE PERCENT (BEAKER) (test jftc=360) 9 % EOSINOPHILS RELATIVE PERCENT (BEAKER) (test ryji=040) 2 % BASOPHILS RELATIVE PERCENT (BEAKER) (test fbvt=025) 1 % NEUTROPHILS ABSOLUTE COUNT (BEAKER) (test qryl=538) 4.87 K/ L 1.78-5.38 LYMPHOCYTES ABSOLUTE COUNT (BEAKER) (test fvlf=311) 0.43 K/ L 1.32-3.57 MONOCYTES ABSOLUTE COUNT (BEAKER) (test gbim=476) 0.52 K/ L 0.30-0.82 EOSINOPHILS ABSOLUTE COUNT (BEAKER) (test uqpt=284) 0.10 K/ L 0.04-0.54 BASOPHILS ABSOLUTE COUNT (BEAKER) (test rxsy=101) 0.03 K/ L 0.01-0.08 IMMATURE GRANULOCYTES-RELATIVE PERCENT (BEAKER) (test zlhb=8728) 1 % 0-1 PROTHROMBIN [id number] 06:19:00* Test Item Value Reference Range Comments PROTIME (BEAKER) (test oxss=241) 16.9 seconds 11.7-14.7 INR (BEAKER) (test rvch=533) 1.4 <=5.9 RECOMMENDED COUMADIN/WARFARIN INR THERAPY RANGESSTANDARD DOSE: 2.0 - 3.0 Inclu sun: PROPHYLAXIS for venous thrombosis, systemic embolization; TREATMENT for santo ous thrombosis and/or pulmonary embolus.HIGH RISK: Target INR is 2.5-3.5 for pat ients with mechanical heart valves.POCT-GLUCOSE [id number] 22:42:00* Test Item Value Reference Range Comments POC-GLUCOSE METER (BEAKER) (test vnhv=4400) 301 mg/dL 70-110 TESTED AT [facility] [address] [address] POCT-GLUCOSE [id number] 18:02:00* Test Item Value Reference Range Comments POC-GLUCOSE METER (BEAKER) (test voka=0375) 314 mg/dL 70-110 TESTED AT [facility] [address] [address] POCT-GLUCOSE [id number] 13:46:00* Test Item Value Reference Range Comments POC-GLUCOSE METER (BEAKER) (test zacg=7390) 301 mg/dL 70-110 Notified JOSE LEAL/TESTED AT [facility] [address] [address] BODY FLUID CULTURE + GRAM [id number] 13:31:00* Test Item Value Reference Range Comments CULTURE (BEAKER) (test yuyo=2598) No growth GRAM STAIN RESULT (BEAKER) (test mnaj=1235) No White blood cells seen GRAM STAIN RESULT (BEAKER) (test ogkp=69347) No organisms seen [id number] 08:59:00* Test Item Value Reference Range Comments PHOSPHORUS (BEAKER) (test mvgw=584) 2.4 mg/dL 2.3-4.7 [id number] 08:59:00* Test Item Value Reference Range Comments MAGNESIUM (BEAKER) (test liii=631) 2.7 mg/dL 1.6-2.6 COMPREHENSIVE METABOLIC [id number] 08:59:00* Test Item Value Reference Range Comments TOTAL PROTEIN (BEAKER) (test adrl=311) 5.5 gm/dL 6.0-8.3 ALBUMIN (BEAKER) (test kpuw=6132) 3.1 g/dL 3.5-5.0 ALKALINE PHOSPHATASE (BEAKER) (test jelk=466) 164 U/L 40-150 BILIRUBIN TOTAL (BEAKER) (test jkvo=132) 17.2 mg/dL 0.2-1.2 SODIUM (BEAKER) (test yxui=629) 130 meq/L 136-145 POTASSIUM (BEAKER) (test qvrf=376) 4.5 meq/L 3.5-5.1 CHLORIDE (BEAKER) (test azkr=210) 104 meq/L 98-107 CO2 (BEAKER) (test mpkf=240) 18 meq/L 22-29 BLOOD UREA NITROGEN (BEAKER) (test tpvs=617) 75 mg/dL 7-21 CREATININE (BEAKER) (test ixta=004) 1.52 mg/dL 0.57-1.25 GLUCOSE RANDOM (BEAKER) (test ybdu=199) 196 mg/dL 70-105 CALCIUM (BEAKER) (test aanj=851) 8.4 mg/dL 8.4-10.2 AST (SGOT) (BEAKER) (test uloj=968) 32 U/L 5-34 ALT (SGPT) (BEAKER) (test keum=342) 19 U/L 6-55 EGFR (BEAKER) (test fqzc=4393) 49 mL/min/1.73 sq m ESTIMATED GFR IS NOT ACCURATE CREATININE CLEARANCE IN PREDICTING GLOMERULAR FILTRATION RATE. ESTIMATED GFR IS NOT APPLICABLE FOR DIALYSIS PATIENTS. Specimen markedly ictericPOCT-GLUCOSE [id number] 08:04:00* Test Item Value Reference Range Comments POC-GLUCOSE METER (BEAKER) (test vtho=6505) 218 mg/dL 70-110 TESTED AT [facility] [address] [address] CALCIUM, [id number] 06:35:00* Test Item Value Reference Range Comments CALCIUM IONIZED (BEAKER) (test sitx=636) 1.06 mmol/L 1.12-1.27 PH, BLOOD (BEAKER) (test jcgu=7885) 7.46 PROTHROMBIN [id number] 06:13:00* Test Item Value Reference Range Comments PROTIME (BEAKER) (test ffon=669) 17.8 seconds 11.7-14.7 INR (BEAKER) (test uyls=152) 1.5 <=5.9 RECOMMENDED COUMADIN/WARFARIN INR THERAPY RANGESSTANDARD DOSE: 2.0 - 3.0 Inclu sun: PROPHYLAXIS for venous thrombosis, systemic embolization; TREATMENT for santo ous thrombosis and/or pulmonary embolus.HIGH RISK: Target INR is 2.5-3.5 for pat ients with mechanical heart valves.CBC W/PLT COUNT & AUTO [id number] 06:06:00* Test Item Value Reference Range Comments WHITE BLOOD CELL COUNT (BEAKER) (test ujlt=626) 5.3 K/ L 3.5-10.5 RED BLOOD CELL COUNT (BEAKER) (test wfmk=461) 2.28 M/ L 4.63-6.08 HEMOGLOBIN (BEAKER) (test ruxc=403) 7.4 GM/DL 13.7-17.5 HEMATOCRIT (BEAKER) (test pvcw=864) 23.0 % 40.1-51.0 MEAN CORPUSCULAR VOLUME (BEAKER) (test xprm=520) 100.9 fL 79.0-92.2 MEAN CORPUSCULAR HEMOGLOBIN (BEAKER) (test swxh=523) 32.5 pg 25.7-32.2 MEAN CORPUSCULAR HEMOGLOBIN CONC (BEAKER) (test qqdn=580) 32.2 GM/DL 32.3-36.5 RED CELL DISTRIBUTION WIDTH (BEAKER) (test clxy=289) 17.2 % 11.6-14.4 PLATELET COUNT (BEAKER) (test yjec=430) 88 K/CU MM 150-450 MEAN PLATELET VOLUME (BEAKER) (test xgxj=247) 11.0 fL 9.4-12.4 NUCLEATED RED BLOOD CELLS (BEAKER) (test oyxn=675) 0 /100 WBC 0-0 NEUTROPHILS RELATIVE PERCENT (BEAKER) (test yqxv=708) 82 % LYMPHOCYTES RELATIVE PERCENT (BEAKER) (test rivc=601) 6 % MONOCYTES RELATIVE PERCENT (BEAKER) (test jaop=130) 10 % EOSINOPHILS RELATIVE PERCENT (BEAKER) (test vamr=166) 2 % BASOPHILS RELATIVE PERCENT (BEAKER) (test dxpd=725) 0 % NEUTROPHILS ABSOLUTE COUNT (BEAKER) (test ptwm=229) 4.31 K/ L 1.78-5.38 LYMPHOCYTES ABSOLUTE COUNT (BEAKER) (test zbio=657) 0.29 K/ L 1.32-3.57 MONOCYTES ABSOLUTE COUNT (BEAKER) (test mpor=525) 0.50 K/ L 0.30-0.82 EOSINOPHILS ABSOLUTE COUNT (BEAKER) (test enzu=451) 0.09 K/ L 0.04-0.54 BASOPHILS ABSOLUTE COUNT (BEAKER) (test zeio=095) 0.02 K/ L 0.01-0.08 IMMATURE GRANULOCYTES-RELATIVE PERCENT (BEAKER) (test aafc=5236) 1 % 0-1 ANAEROBIC [id number] 05:08:00* Test Item Value Reference Range Comments CULTURE (BEAKER) (test ewks=6707) No anaerobes isolated POCT-GLUCOSE [id number] 23:33:00* Test Item Value Reference Range Comments POC-GLUCOSE METER (BEAKER) (test gdzg=1125) 322 mg/dL 70-110 Notified JOSE LEAL/TESTED AT [facility] [address] [address] POCT-GLUCOSE [id number] 18:29:00* Test Item Value Reference Range Comments POC-GLUCOSE METER (BEAKER) (test rpnq=8744) 234 mg/dL 70-110 TESTED AT [facility] [address] [address] POCT-GLUCOSE [id number] 12:47:00* Test Item Value Reference Range Comments POC-GLUCOSE METER (JACKI) (test tkvg=7412) 328 mg/dL 70-110 TESTED AT [facility] [address] [address] MR, ABDOMEN, [id number] 10:04:00FINAL REPORT TECHNIQUE: MRI of the abdomen and pelvis WITHOUT and WITH intravenous contrast. INDICATION: Cirrhosis, subcapsular lesion on MRI without contrast. Evaluate for abscess versus hematoma versus mass. Evaluate for source of infection given persistent SBP COMPARISON: Abdominal MRI from 04/26/2018. FINDINGS: LOWER THORAX: Small right and trace left pleural effusions with right basilar subsegmental atelectasis. LIVER: Nodular, cirrhotic liver. No focal hepatic lesions. BILIARY: Gallbladder is unremarkable. No biliary ductal dilatation or filling defect. Low medial insertion of the cystic duct.SPLEEN: 23.6 cm splenomegaly. A nonenhancing area in the inferior spleen measures 6 mm and could be a calcified granuloma.PANCREAS: No focal masses or ductal dilatation. A DRENALS: No adrenal nodules.KIDNEYS/URETERS: No hydronephrosis or solid mass les ions. A right interpolar simple renal cyst measures 4 mm. PERITONEUM/RETROPERITO NEUM: Large volume ascites with thickening of the omentum as well as omental carol ma. The subcapsular perihepatic fluid collection measures 20 x 19.6 x 7.9 cm and has a thick peripheral rim, internal debris, and a wall which restricts diffusi on. This is similar to examinations dating back to 02/24/2018 LYMPH NODES: No lymp hadenopathy.VESSELS: Small esophageal varices. Conventional hepatic arterial gildardo matt. GI TRACT: The bowel wall is edematous. The likely appendix appears normal. BLADDER AND PELVIC ORGANS: Bilateral indirect inguinal hernias contain a large amount of ascites. In addition, there are small hydroceles. A portion of fluid c ollection is located superior to the testicles and does not definitely communica te with the peritoneum is some complex fluid. This measures 6.8 x 7.9 x 7.46 m o n the left and 5.5 x 7.7 x 4.8 cm on the right. The sloan of the fluid collectio n and the hernia sacs are thick and enhancing. BONES AND SOFT TISSUES: A lower t horacic vertebral body contains a lesion which is hyperintense on T2-weighted im aging and measures 1.2 cm. This is most likely an atypical hemangioma. Bilateral gynecomastia. Diffuse anasarca. IMPRESSION: 1.The subcapsular fluid collection is from an indeterminate cause. Given the thickened wall and restricted diffusi on in the wall, both hematoma and superimposed infection are possible. Given the history of persistent spontaneous bacterial peritonitis, this could be superinf ected. 2.There are bilateral indirect inguinal hernias which contain ascites. Th bertha hernias are mildly complex, possibly reactive due to the spontaneous bacteri al peritonitis. In addition, there are separate collections which do not definit jayla communicate with the hernias and are mildly complex. These fluid collections are indeterminate and could be reactive the spontaneous bacterial peritonitis. However, underlying infection cannot be excluded. 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 4.The thickening of the omentum is likely reactive to the large vo lume ascites and infection. 5.There are small right and trace left pleural effus ions. The small right pleural effusion may be mildly loculated. Signed: Guillermo Stephens MDReport Verified Date/Time: 05/03/2018 10:04:12 Reading Location: [address] Body Reading Room , PELVIS, [id number] 10:04:00FINAL REPORT TECHNIQUE: MRI of the abdomen and pelvis WITHOUT and WITH intravenous contrast. INDICATION: Cirrhosis, subcapsular lesion on MRI without contrast. Evaluate for abscess versus hematoma versus mass. Evaluate for source of infection given persistent SBP COMPARISON: Abdominal MRI from 04/26/2018. FINDINGS: LOWER THORAX: Small right and trace left pleural effusions with right basilar subsegmental atelectasis. LIVER: Nodular, cirrhotic liver. No focal hepatic lesions. BILIARY: Gallbladder is unremarkable. No biliary ductal d ilatation or filling defect. Low medial insertion of the cystic duct.SPLEEN: 23. 6 cm splenomegaly. A nonenhancing area in the inferior spleen measures 6 mm and could be a calcified granuloma.PANCREAS: No focal masses or ductal dilatation. A DRENALS: No adrenal nodules.KIDNEYS/URETERS: No hydronephrosis or solid mass les ions. A right interpolar simple renal cyst measures 4 mm. PERITONEUM/RETROPERITO NEUM: Large volume ascites with thickening of the omentum as well as omental carol ma. The subcapsular perihepatic fluid collection measures 20 x 19.6 x 7.9 cm and has a thick peripheral rim, internal debris, and a wall which restricts diffusi on. This is similar to examinations dating back to 02/24/2018 LYMPH NODES: No lymp hadenopathy.VESSELS: Small esophageal varices. Conventional hepatic arterial gildardo matt. GI TRACT: The bowel wall is edematous. The likely appendix appears normal. BLADDER AND PELVIC ORGANS: Bilateral indirect inguinal hernias contain a large amount of ascites. In addition, there are small hydroceles. A portion of fluid c ollection is located superior to the testicles and does not definitely communica te with the peritoneum is some complex fluid. This measures 6.8 x 7.9 x 7.46 m o n the left and 5.5 x 7.7 x 4.8 cm on the right. The sloan of the fluid collectio n and the hernia sacs are thick and enhancing. BONES AND SOFT TISSUES: A lower t horacic vertebral body contains a lesion which is hyperintense on T2-weighted im aging and measures 1.2 cm. This is most likely an atypical hemangioma. Bilateral gynecomastia. Diffuse anasarca. IMPRESSION: 1.The subcapsular fluid collection is from an indeterminate cause. Given the thickened wall and restricted diffusi on in the wall, both hematoma and superimposed infection are possible. Given the history of persistent spontaneous bacterial peritonitis, this could be superinf ected. 2.There are bilateral indirect inguinal hernias which contain ascites. Th bertha hernias are mildly complex, possibly reactive due to the spontaneous bacteri al peritonitis. In addition, there are separate collections which do not definit jayla communicate with the hernias and are mildly complex. These fluid collections are indeterminate and could be reactive the spontaneous bacterial peritonitis. However, underlying infection cannot be excluded. 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 4.The thickening of the omentum is likely reactive to the large vo lume ascites and infection. 5.There are small right and trace left pleural effus ions. The small right pleural effusion may be mildly loculated. Signed: Guillermo Stephens MDReport Verified Date/Time: 05/03/2018 10:04:12 Reading Location: [facility] B1 C0 13Y CT Body Reading Room -GLUCOSE [id number] 08:10:00* Test Item Value Reference Range Comments POC-GLUCOSE METER (BEAKER) (test xtui=0645) 315 mg/dL 70-110 TESTED AT [facility] [address] [address] CALCIUM, [id number] 05:19:00* Test Item Value Reference Range Comments CALCIUM IONIZED (BEAKER) (test irgt=406) 1.05 mmol/L 1.12-1.27 PH, BLOOD (BEAKER) (test eseb=2741) 7.43 [id number] 05:05:00* Test Item Value Reference Range Comments PHOSPHORUS (BEAKER) (test lzjn=039) 2.2 mg/dL 2.3-4.7 [id number] 05:05:00* Test Item Value Reference Range Comments MAGNESIUM (BEAKER) (test utsr=416) 2.6 mg/dL 1.6-2.6 COMPREHENSIVE METABOLIC [id number] 05:05:00* Test Item Value Reference Range Comments TOTAL PROTEIN (BEAKER) (test dqfw=033) 5.4 gm/dL 6.0-8.3 ALBUMIN (BEAKER) (test dsrn=5029) 3.2 g/dL 3.5-5.0 ALKALINE PHOSPHATASE (BEAKER) (test hvbc=035) 157 U/L 40-150 BILIRUBIN TOTAL (BEAKER) (test xgnt=421) 19.3 mg/dL 0.2-1.2 SODIUM (BEAKER) (test vgsb=242) 127 meq/L 136-145 POTASSIUM (BEAKER) (test yxlv=529) 4.7 meq/L 3.5-5.1 CHLORIDE (BEAKER) (test qsbr=980) 99 meq/L 98-107 CO2 (BEAKER) (test owah=370) 20 meq/L 22-29 BLOOD UREA NITROGEN (BEAKER) (test laqv=181) 74 mg/dL 7-21 CREATININE (BEAKER) (test vcoc=926) 1.33 mg/dL 0.57-1.25 GLUCOSE RANDOM (BEAKER) (test oqtg=448) 239 mg/dL 70-105 CALCIUM (BEAKER) (test sgxu=309) 8.1 mg/dL 8.4-10.2 AST (SGOT) (BEAKER) (test xyek=131) 28 U/L 5-34 ALT (SGPT) (BEAKER) (test gyle=252) 16 U/L 6-55 EGFR (BEAKER) (test yqds=7011) 57 mL/min/1.73 sq m ESTIMATED GFR IS NOT ACCURATE CREATININE CLEARANCE IN PREDICTING GLOMERULAR FILTRATION RATE. ESTIMATED GFR IS NOT APPLICABLE FOR DIALYSIS PATIENTS. Specimen markedly ictericPROTHROMBIN [id number] 04:51:00* Test Item Value Reference Range Comments PROTIME (BEAKER) (test rtaw=570) 18.8 seconds 11.7-14.7 INR (BEAKER) (test uvrv=070) 1.6 <=5.9 RECOMMENDED COUMADIN/WARFARIN INR THERAPY RANGESSTANDARD DOSE: 2.0 - 3.0 Inclu sun: PROPHYLAXIS for venous thrombosis, systemic embolization; TREATMENT for santo ous thrombosis and/or pulmonary embolus.HIGH RISK: Target INR is 2.5-3.5 for pat ients with mechanical heart valves.CBC W/PLT COUNT & AUTO [id number] 04:44:00* Test Item Value Reference Range Comments WHITE BLOOD CELL COUNT (BEAKER) (test pzsb=768) 7.7 K/ L 3.5-10.5 RED BLOOD CELL COUNT (BEAKER) (test edtx=573) 2.29 M/ L 4.63-6.08 HEMOGLOBIN (BEAKER) (test qzqp=492) 7.7 GM/DL 13.7-17.5 HEMATOCRIT (BEAKER) (test nszu=325) 23.2 % 40.1-51.0 MEAN CORPUSCULAR VOLUME (BEAKER) (test zacz=549) 101.3 fL 79.0-92.2 MEAN CORPUSCULAR HEMOGLOBIN (BEAKER) (test pejc=016) 33.6 pg 25.7-32.2 MEAN CORPUSCULAR HEMOGLOBIN CONC (BEAKER) (test nisc=416) 33.2 GM/DL 32.3-36.5 RED CELL DISTRIBUTION WIDTH (BEAKER) (test hvku=016) 16.8 % 11.6-14.4 PLATELET COUNT (BEAKER) (test ycfv=984) 90 K/CU MM 150-450 MEAN PLATELET VOLUME (BEAKER) (test bdio=581) 10.8 fL 9.4-12.4 NUCLEATED RED BLOOD CELLS (BEAKER) (test enrd=015) 0 /100 WBC 0-0 NEUTROPHILS RELATIVE PERCENT (BEAKER) (test tzna=760) 86 % LYMPHOCYTES RELATIVE PERCENT (BEAKER) (test does=067) 3 % MONOCYTES RELATIVE PERCENT (BEAKER) (test xasf=788) 8 % EOSINOPHILS RELATIVE PERCENT (BEAKER) (test ambs=489) 1 % BASOPHILS RELATIVE PERCENT (BEAKER) (test ngnl=875) 1 % NEUTROPHILS ABSOLUTE COUNT (BEAKER) (test qjxh=289) 6.56 K/ L 1.78-5.38 LYMPHOCYTES ABSOLUTE COUNT (BEAKER) (test xcji=790) 0.26 K/ L 1.32-3.57 MONOCYTES ABSOLUTE COUNT (BEAKER) (test nbou=625) 0.64 K/ L 0.30-0.82 EOSINOPHILS ABSOLUTE COUNT (BEAKER) (test gezr=859) 0.09 K/ L 0.04-0.54 BASOPHILS ABSOLUTE COUNT (BEAKER) (test xwkv=859) 0.04 K/ L 0.01-0.08 IMMATURE GRANULOCYTES-RELATIVE PERCENT (BEAKER) (test gdpk=1965) 1 % 0-1 POCT-GLUCOSE [id number] 22:00:00* Test Item Value Reference Range Comments POC-GLUCOSE METER (BEAKER) (test klgb=2940) 302 mg/dL 70-110 Verify with Lab draw/TESTED AT [address] [address] POCT-GLUCOSE [id number] 17:57:00* Test Item Value Reference Range Comments POC-GLUCOSE METER (BEAKER) (test mofe=6546) 275 mg/dL 70-110 [address]ED AT [address] [address] VANCOMYCIN LEVEL, [id number] 15:24:00* Test Item Value Reference Range Comments VANCOMYCIN TROUGH (BEAKER) (test jcdd=575) 14.3 ug/mL 10.0-20.0 Please draw and send 30 mins prior to 11/8 PM dose. Inform MD of result prior t o administering dose.[id number] 15:21:00Medical Cytology Report Case: [id number] Authorizing Provider: Mariia Gary MD Collected: 05/01/2018 1800 Ordering Location: [address] Received: 05/02/2018 0820 Service Pathologist: Ab Chakraborty MD Specimen: Peritoneal Fluid PERITONEAL FLUID (CYTOSPINS): - PREDOMINANTLY ACUTE INFLAMMATION - NEGATIVE FOR MALIGNANCY Signing Pathologist Direct Phone Line: [phone] signed by Ab Chakraborty MD on 05/02/2018 at 3:21 [id number]; hep B cirrhosis PERITONEAL FLUIDPrepared 4 cytospins from 1000 ml self-colored fluidCollected: [id number]: [id number] [place] [facility], Department of Pathology, [address] [place] [address], [facility], [facility], [address] [place] [id number], Tel [phone], [facility], [address] [place] [address], QEUK-GLUCOSE [id number] 11:57:00* Test Item Value Reference Range Comments POC-GLUCOSE METER (BEAKER) (test hfam=2811) 274 mg/dL 70-110 TESTED AT [place] [address] POCT-GLUCOSE [id number] 07:48:00* Test Item Value Reference Range Comments POC-GLUCOSE METER (BEAKER) (test rbyg=1912) 219 mg/dL 70-110 TESTED AT [place] [address] [id number] 06:00:00* Test Item Value Reference Range Comments PHOSPHORUS (BEAKER) (test nepe=300) 2.4 mg/dL 2.3-4.7 [id number] 06:00:00* Test Item Value Reference Range Comments MAGNESIUM (BEAKER) (test rwpp=191) 2.6 mg/dL 1.6-2.6 COMPREHENSIVE METABOLIC [id number] 06:00:00* Test Item Value Reference Range Comments TOTAL PROTEIN (BEAKER) (test cmcc=347) 5.2 gm/dL 6.0-8.3 ALBUMIN (BEAKER) (test lrib=0703) 3.2 g/dL 3.5-5.0 ALKALINE PHOSPHATASE (BEAKER) (test fion=569) 114 U/L 40-150 BILIRUBIN TOTAL (BEAKER) (test hisz=431) 20.0 mg/dL 0.2-1.2 SODIUM (BEAKER) (test hibh=976) 127 meq/L 136-145 POTASSIUM (BEAKER) (test zqgd=190) 4.3 meq/L 3.5-5.1 CHLORIDE (BEAKER) (test usme=181) 99 meq/L 98-107 CO2 (BEAKER) (test bfyb=442) 21 meq/L 22-29 BLOOD UREA NITROGEN (BEAKER) (test doye=202) 76 mg/dL 7-21 CREATININE (BEAKER) (test lcku=153) 1.17 mg/dL 0.57-1.25 GLUCOSE RANDOM (BEAKER) (test dkbs=312) 187 mg/dL 70-105 CALCIUM (BEAKER) (test mwgt=459) 8.4 mg/dL 8.4-10.2 AST (SGOT) (BEAKER) (test hfog=273) 27 U/L 5-34 ALT (SGPT) (BEAKER) (test hnly=438) 16 U/L 6-55 EGFR (BEAKER) (test xcxh=9202) 66 mL/min/1.73 sq m ESTIMATED GFR IS NOT ACCURATE CREATININE CLEARANCE IN PREDICTING GLOMERULAR FILTRATION RATE. ESTIMATED GFR IS NOT APPLICABLE FOR DIALYSIS PATIENTS. Specimen markedly ictericHEPATIC FUNCTION [id number] 06:00:00* Test Item Value Reference Range Comments TOTAL PROTEIN (BEAKER) (test gdxe=598) 5.2 gm/dL 6.0-8.3 ALBUMIN (BEAKER) (test lvel=9373) 3.2 g/dL 3.5-5.0 BILIRUBIN TOTAL (BEAKER) (test bdil=043) 20.0 mg/dL 0.2-1.2 BILIRUBIN DIRECT (BEAKER) (test zgqn=118) 12.4 mg/dL 0.1-0.5 ALKALINE PHOSPHATASE (BEAKER) (test skof=633) 114 U/L 40-150 AST (SGOT) (BEAKER) (test gxqy=720) 27 U/L 5-34 ALT (SGPT) (BEAKER) (test aara=243) 16 U/L 6-55 Specimen markedly ictericPROTHROMBIN [id number] 05:26:00* Test Item Value Reference Range Comments PROTIME (BEAKER) (test amle=003) 19.7 seconds 11.7-14.7 INR (BEAKER) (test pyqj=407) 1.7 <=5.9 RECOMMENDED COUMADIN/WARFARIN INR THERAPY RANGESSTANDARD DOSE: 2.0 - 3.0 Inclu sun: PROPHYLAXIS for venous thrombosis, systemic embolization; TREATMENT for santo ous thrombosis and/or pulmonary embolus.HIGH RISK: Target INR is 2.5-3.5 for pat ients with mechanical heart valves.CBC W/PLT COUNT & AUTO [id number] 05:25:00* Test Item Value Reference Range Comments WHITE BLOOD CELL COUNT (BEAKER) (test wshc=311) 6.8 K/ L 3.5-10.5 RED BLOOD CELL COUNT (BEAKER) (test cbgy=405) 2.29 M/ L 4.63-6.08 HEMOGLOBIN (BEAKER) (test qtjd=008) 7.5 GM/DL 13.7-17.5 HEMATOCRIT (BEAKER) (test qadn=525) 22.9 % 40.1-51.0 MEAN CORPUSCULAR VOLUME (BEAKER) (test lazg=982) 100.0 fL 79.0-92.2 MEAN CORPUSCULAR HEMOGLOBIN (BEAKER) (test uacm=539) 32.8 pg 25.7-32.2 MEAN CORPUSCULAR HEMOGLOBIN CONC (BEAKER) (test mfeh=626) 32.8 GM/DL 32.3-36.5 RED CELL DISTRIBUTION WIDTH (BEAKER) (test umfs=596) 16.4 % 11.6-14.4 PLATELET COUNT (BEAKER) (test zgwr=441) 85 K/CU MM 150-450 MEAN PLATELET VOLUME (BEAKER) (test vjef=489) 11.0 fL 9.4-12.4 NUCLEATED RED BLOOD CELLS (BEAKER) (test wnlc=370) 0 /100 WBC 0-0 NEUTROPHILS RELATIVE PERCENT (BEAKER) (test rrtu=113) 83 % LYMPHOCYTES RELATIVE PERCENT (BEAKER) (test piox=129) 6 % MONOCYTES RELATIVE PERCENT (BEAKER) (test vmcx=659) 8 % EOSINOPHILS RELATIVE PERCENT (BEAKER) (test oxbr=532) 2 % BASOPHILS RELATIVE PERCENT (BEAKER) (test cgoz=920) 0 % NEUTROPHILS ABSOLUTE COUNT (BEAKER) (test puvi=034) 5.65 K/ L 1.78-5.38 LYMPHOCYTES ABSOLUTE COUNT (BEAKER) (test uqso=385) 0.42 K/ L 1.32-3.57 MONOCYTES ABSOLUTE COUNT (BEAKER) (test gdxj=592) 0.56 K/ L 0.30-0.82 EOSINOPHILS ABSOLUTE COUNT (BEAKER) (test iwon=681) 0.10 K/ L 0.04-0.54 BASOPHILS ABSOLUTE COUNT (BEAKER) (test thjg=750) 0.03 K/ L 0.01-0.08 IMMATURE GRANULOCYTES-RELATIVE PERCENT (BEAKER) (test dcbk=4861) 1 % 0-1 CALCIUM, [id number] 05:21:00* Test Item Value Reference Range Comments CALCIUM IONIZED (BEAKER) (test kmdo=365) 1.01 mmol/L 1.12-1.27 PH, BLOOD (BEAKER) (test dtzc=2712) 7.45 POCT-GLUCOSE [id number] 21:47:00* Test Item Value Reference Range Comments POC-GLUCOSE METER (BEAKER) (test newv=3234) 214 mg/dL 70-110 TESTED AT [facility] [address] [facility] [address] POCT-GLUCOSE [id number] 18:02:00* Test Item Value Reference Range Comments POC-GLUCOSE METER (BEAKER) (test zdxy=2599) 251 mg/dL 70-110 TESTED AT [place] [id number] [facility] [address] ANAEROBIC [id number] 17:21:00* Test Item Value Reference Range Comments CULTURE (BEAKER) (test ltdw=0311) No anaerobes isolated BODY FLUID CELL COUNT WITH [id number] 17:10:00* Test Item Value Reference Range Comments APPEARANCE FLUID (BEAKER) (test geoi=269) Clear Clear COLOR FLUID (BEAKER) (test frhm=281) Yellow Colorless, Straw RBC FLUID (BEAKER) (test fpuw=733) 880 /cu mm <=1 ADJUSTED WBC FLUID (BEAKER) (test zeei=7425) 1209 /cu mm <=5 LINING CELLS (BEAKER) (test dpvq=6229) 0 /cu mm <=1 NEUTROPHILS FLUID (BEAKER) (test cpjw=7516) 78 % LYMPHS FLUID (BEAKER) (test ajec=773) 1 % MONO/MACROPHAGE FLUID (BEAKER) (test xcxk=941) 21 % EOSINOPHILS FLUID (BEAKER) (test pbut=413) 0 % BASO FLUID (BEAKER) (test snna=203) 0 % CONTAINER BODY FLUID (BEAKER) (test whng=8596) EDTA Tube ALBUMIN, BODY [id number] 15:39:00* Test Item Value Reference Range Comments ALBUMIN FLUID (BEAKER) (test lytk=713) 0.9 gm/dL Reference Range: No Normals Assay performance has not been validated for this type of specimen.For paracentesis sample collected 05/01/2018POCT-GLUCOSE METER 2018-05-01 12:57:00* Test Item Value Reference Range Comments POC-GLUCOSE METER (BEAKER) (test kthm=2669) 306 mg/dL 70-110 Notified JOSE LEAL/TESTED AT [place] [address] U/S, [id number] 12:26:00Reason for exam:->SBP and ascites. Please do paracentesis with cell count and cytology to determine if SBP treatedFINAL REPORT PROCEDURE: Ultrasound-guided paracentesis. I NDICATION: 52-year-old man with ascites. DESCRIPTION: After obtaining informed w ritten consent, ultrasound scan of the abdomen identified ascites in the right l ower quadrant. The overlying skin was prepped and draped in the usual, sterile f ashion and local 1% lidocaine anesthesia was administered. A 5 Mal[place]ian catheter w as advanced into the peritoneal cavity and 9400 cc of serous fluid was removed. The catheter was removed without immediate complication. Samples were sent for a nalysis. IMPRESSION:Uncomplicated ultrasound-guided paracentesis with 9400 cc fl uid removed. Signed: Chrissy [place] Verified Date/Time: 05/01/2018 12 :26:00 Reading Location: [facility] [id number] Ultrasound Reading Room D CULTURE 2018-05-01 10:00:00* Test Item Value Reference Range Comments CULTURE (BEAKER) (test sxpl=3731) No growth in 5 days BLOOD [id number] 10:00:00* Test Item Value Reference Range Comments CULTURE (BEAKER) (test wrpg=0824) No growth in 5 days POCT-GLUCOSE [id number] 08:15:00* Test Item Value Reference Range Comments POC-GLUCOSE METER (BEAKER) (test hhls=1575) 255 mg/dL 70-110 [address]ED AT [address] [address] HEPATIC FUNCTION [id number] 03:34:00* Test Item Value Reference Range Comments TOTAL PROTEIN (BEAKER) (test hzfb=721) 5.6 gm/dL 6.0-8.3 ALBUMIN (BEAKER) (test nhet=4373) 3.3 g/dL 3.5-5.0 BILIRUBIN TOTAL (BEAKER) (test glwh=799) 22.1 mg/dL 0.2-1.2 BILIRUBIN DIRECT (BEAKER) (test xwyu=772) 13.9 mg/dL 0.1-0.5 ALKALINE PHOSPHATASE (BEAKER) (test soah=655) 115 U/L 40-150 AST (SGOT) (BEAKER) (test ywzh=415) 22 U/L 5-34 ALT (SGPT) (BEAKER) (test mlzp=791) 16 U/L 6-55 Specimen markedly ictericBASIC METABOLIC [id number] 03:33:00* Test Item Value Reference Range Comments SODIUM (BEAKER) (test ijkv=233) 127 meq/L 136-145 POTASSIUM (BEAKER) (test wzsc=514) 4.0 meq/L 3.5-5.1 CHLORIDE (BEAKER) (test lvbq=140) 97 meq/L 98-107 CO2 (BEAKER) (test miqx=516) 24 meq/L 22-29 BLOOD UREA NITROGEN (BEAKER) (test vzpv=696) 82 mg/dL 7-21 CREATININE (BEAKER) (test btsr=845) 1.43 mg/dL 0.57-1.25 GLUCOSE RANDOM (BEAKER) (test xbqs=679) 221 mg/dL 70-105 CALCIUM (BEAKER) (test amig=836) 8.3 mg/dL 8.4-10.2 EGFR (BEAKER) (test oqpl=5579) 52 mL/min/1.73 sq m ESTIMATED GFR IS NOT ACCURATE CREATININE CLEARANCE IN PREDICTING GLOMERULAR FILTRATION RATE. ESTIMATED GFR IS NOT APPLICABLE FOR DIALYSIS PATIENTS. Specimen markedly [id number] 03:32:00* Test Item Value Reference Range Comments PHOSPHORUS (BEAKER) (test wsvp=963) 2.5 mg/dL 2.3-4.7 [id number] 03:32:00* Test Item Value Reference Range Comments MAGNESIUM (BEAKER) (test tzae=351) 2.7 mg/dL 1.6-2.6 PROTHROMBIN [id number] 03:23:00* Test Item Value Reference Range Comments PROTIME (BEAKER) (test cajo=494) 19.3 seconds 11.7-14.7 INR (BEAKER) (test dfps=676) 1.6 <=5.9 RECOMMENDED COUMADIN/WARFARIN INR THERAPY RANGESSTANDARD DOSE: 2.0 - 3.0 Inclu sun: PROPHYLAXIS for venous thrombosis, systemic embolization; TREATMENT for santo ous thrombosis and/or pulmonary embolus.HIGH RISK: Target INR is 2.5-3.5 for pat ients with mechanical heart valves.[id number] 03:23:00* Test Item Value Reference Range Comments PROTIME (BEAKER) (test kvts=488) 19.3 seconds 11.7-14.7 INR (BEAKER) (test wbau=494) 1.6 <=5.9 PARTIAL THROMBOPLASTIN TIME (BEAKER) (test jmvr=192) 33.9 seconds 22.5-36.0 RECOMMENDED COUMADIN/WARFARIN INR THERAPY RANGESSTANDARD DOSE: 2.0 - 3.0 Inclu sun: PROPHYLAXIS for venous thrombosis, systemic embolization; TREATMENT for santo ous thrombosis and/or pulmonary embolus.HIGH RISK: Target INR is 2.5-3.5 for pat ients with mechanical heart valves.CBC W/PLT COUNT & AUTO [id number] 03:21:00* Test Item Value Reference Range Comments WHITE BLOOD CELL COUNT (BEAKER) (test pnlk=994) 9.5 K/ L 3.5-10.5 RED BLOOD CELL COUNT (BEAKER) (test xofq=859) 2.54 M/ L 4.63-6.08 HEMOGLOBIN (BEAKER) (test hnem=709) 8.2 GM/DL 13.7-17.5 HEMATOCRIT (BEAKER) (test xjcu=938) 25.3 % 40.1-51.0 MEAN CORPUSCULAR VOLUME (BEAKER) (test jmbg=637) 99.6 fL 79.0-92.2 MEAN CORPUSCULAR HEMOGLOBIN (BEAKER) (test iifn=907) 32.3 pg 25.7-32.2 MEAN CORPUSCULAR HEMOGLOBIN CONC (BEAKER) (test mlgp=665) 32.4 GM/DL 32.3-36.5 RED CELL DISTRIBUTION WIDTH (BEAKER) (test gzif=201) 16.0 % 11.6-14.4 PLATELET COUNT (BEAKER) (test dwbc=494) 120 K/CU MM 150-450 MEAN PLATELET VOLUME (BEAKER) (test banu=819) 10.9 fL 9.4-12.4 NUCLEATED RED BLOOD CELLS (BEAKER) (test fumv=123) 0 /100 WBC 0-0 NEUTROPHILS RELATIVE PERCENT (BEAKER) (test buhu=324) 84 % LYMPHOCYTES RELATIVE PERCENT (BEAKER) (test jeae=298) 4 % MONOCYTES RELATIVE PERCENT (BEAKER) (test iefi=673) 8 % EOSINOPHILS RELATIVE PERCENT (BEAKER) (test qidu=667) 2 % BASOPHILS RELATIVE PERCENT (BEAKER) (test xlds=600) 0 % NEUTROPHILS ABSOLUTE COUNT (BEAKER) (test ilwf=115) 7.97 K/ L 1.78-5.38 LYMPHOCYTES ABSOLUTE COUNT (BEAKER) (test hdzq=582) 0.40 K/ L 1.32-3.57 MONOCYTES ABSOLUTE COUNT (BEAKER) (test ossw=437) 0.78 K/ L 0.30-0.82 EOSINOPHILS ABSOLUTE COUNT (BEAKER) (test onnz=292) 0.19 K/ L 0.04-0.54 BASOPHILS ABSOLUTE COUNT (BEAKER) (test hobo=107) 0.04 K/ L 0.01-0.08 IMMATURE GRANULOCYTES-RELATIVE PERCENT (BEAKER) (test lhsx=5636) 1 % 0-1 CALCIUM, [id number] 03:18:00* Test Item Value Reference Range Comments CALCIUM IONIZED (BEAKER) (test unry=725) 1.04 mmol/L 1.12-1.27 PH, BLOOD (BEAKER) (test broy=9008) 7.37 POCT-GLUCOSE [id number] 22:18:00* Test Item Value Reference Range Comments POC-GLUCOSE METER (BEAKER) (test mmgi=4719) 346 mg/dL 70-110 Notified JOSE LEAL/TESTED AT [address] [address] BASIC METABOLIC [id number] 18:57:00* Test Item Value Reference Range Comments SODIUM (BEAKER) (test wrfp=169) 126 meq/L 136-145 POTASSIUM (BEAKER) (test pblf=404) 4.0 meq/L 3.5-5.1 CHLORIDE (BEAKER) (test vqpn=537) 97 meq/L 98-107 CO2 (BEAKER) (test kboi=173) 22 meq/L 22-29 BLOOD UREA NITROGEN (BEAKER) (test mbdf=918) 86 mg/dL 7-21 CREATININE (BEAKER) (test gghh=996) 1.52 mg/dL 0.57-1.25 GLUCOSE RANDOM (BEAKER) (test yniz=103) 236 mg/dL 70-105 CALCIUM (BEAKER) (test tdlo=725) 8.3 mg/dL 8.4-10.2 EGFR (BEAKER) (test ebfr=5195) 49 mL/min/1.73 sq m ESTIMATED GFR IS NOT ACCURATE CREATININE CLEARANCE IN PREDICTING GLOMERULAR FILTRATION RATE. ESTIMATED GFR IS NOT APPLICABLE FOR DIALYSIS PATIENTS. Specimen markedly ictericPOCT-GLUCOSE [id number] 17:47:00* Test Item Value Reference Range Comments POC-GLUCOSE METER (BEAKER) (test vmjf=2735) 259 mg/dL 70-110 [address]ED AT [address] [address] BODY FLUID CULTURE + GRAM [id number] 12:03:00* Test Item Value Reference Range Comments CULTURE (BEAKER) (test qzcf=6335) No growth GRAM STAIN RESULT (BEAKER) (test szqc=1294) <1+ White blood cells seen GRAM STAIN RESULT (BEAKER) (test jnex=92315) No organisms seen POCT-GLUCOSE [id number] 10:37:00* Test Item Value Reference Range Comments POC-GLUCOSE METER (BEAKER) (test mnfg=3014) 341 mg/dL 70-110 Notified JOSE LEAL/TESTED AT [facility] [address] [facility] [address] POCT-GLUCOSE [id number] 07:46:00* Test Item Value Reference Range Comments POC-GLUCOSE METER (BEAKER) (test zfnc=9716) 210 mg/dL 70-110 TESTED AT [place] [id number] [facility] [address] CALCIUM, [id number] 06:53:00* Test Item Value Reference Range Comments CALCIUM IONIZED (BEAKER) (test ewue=986) 1.10 mmol/L 1.12-1.27 PH, BLOOD (BEAKER) (test aect=5193) 7.39 [id number] 05:38:00* Test Item Value Reference Range Comments MAGNESIUM (BEAKER) (test sctp=023) 2.6 mg/dL 1.6-2.6 BASIC METABOLIC [id number] 05:38:00* Test Item Value Reference Range Comments SODIUM (BEAKER) (test wygt=256) 124 meq/L 136-145 POTASSIUM (BEAKER) (test cgyb=308) 3.8 meq/L 3.5-5.1 CHLORIDE (BEAKER) (test izlj=053) 95 meq/L 98-107 CO2 (BEAKER) (test urjg=203) 23 meq/L 22-29 BLOOD UREA NITROGEN (BEAKER) (test nqhe=272) 93 mg/dL 7-21 CREATININE (BEAKER) (test mmyl=149) 1.54 mg/dL 0.57-1.25 GLUCOSE RANDOM (BEAKER) (test kwcq=930) 216 mg/dL 70-105 CALCIUM (BEAKER) (test hldc=219) 8.0 mg/dL 8.4-10.2 EGFR (BEAKER) (test ejti=7764) 48 mL/min/1.73 sq m ESTIMATED GFR IS NOT ACCURATE CREATININE CLEARANCE IN PREDICTING GLOMERULAR FILTRATION RATE. ESTIMATED GFR IS NOT APPLICABLE FOR DIALYSIS PATIENTS. Specimen markedly ictericHEPATIC FUNCTION [id number] 05:38:00* Test Item Value Reference Range Comments TOTAL PROTEIN (BEAKER) (test pnel=715) 5.4 gm/dL 6.0-8.3 ALBUMIN (BEAKER) (test emxg=7946) 3.1 g/dL 3.5-5.0 BILIRUBIN TOTAL (BEAKER) (test nnwr=636) 18.7 mg/dL 0.2-1.2 BILIRUBIN DIRECT (BEAKER) (test ufqy=875) 12.5 mg/dL 0.1-0.5 ALKALINE PHOSPHATASE (BEAKER) (test xzrx=430) 115 U/L 40-150 AST (SGOT) (BEAKER) (test qrvu=901) 24 U/L 5-34 ALT (SGPT) (BEAKER) (test hgkq=024) 17 U/L 6-55 Specimen markedly ictericCBC W/PLT COUNT & AUTO [id number] 05:27:00 * Test Item Value Reference Range Comments WHITE BLOOD CELL COUNT (BEAKER) (test czjv=812) 9.3 K/ L 3.5-10.5 RED BLOOD CELL COUNT (BEAKER) (test kkqr=116) 2.42 M/ L 4.63-6.08 HEMOGLOBIN (BEAKER) (test uasc=610) 7.9 GM/DL 13.7-17.5 HEMATOCRIT (BEAKER) (test tkdy=185) 23.9 % 40.1-51.0 MEAN CORPUSCULAR VOLUME (BEAKER) (test eqjn=120) 98.8 fL 79.0-92.2 MEAN CORPUSCULAR HEMOGLOBIN (BEAKER) (test leto=457) 32.6 pg 25.7-32.2 MEAN CORPUSCULAR HEMOGLOBIN CONC (BEAKER) (test nggh=600) 33.1 GM/DL 32.3-36.5 RED CELL DISTRIBUTION WIDTH (BEAKER) (test iazo=307) 15.9 % 11.6-14.4 PLATELET COUNT (BEAKER) (test gwlf=774) 107 K/CU MM 150-450 MEAN PLATELET VOLUME (BEAKER) (test vedi=274) 10.2 fL 9.4-12.4 NUCLEATED RED BLOOD CELLS (BEAKER) (test xdnz=822) 0 /100 WBC 0-0 NEUTROPHILS RELATIVE PERCENT (BEAKER) (test azoy=922) 86 % LYMPHOCYTES RELATIVE PERCENT (BEAKER) (test lbzc=926) 4 % MONOCYTES RELATIVE PERCENT (BEAKER) (test vhkx=407) 7 % EOSINOPHILS RELATIVE PERCENT (BEAKER) (test tdbd=104) 1 % BASOPHILS RELATIVE PERCENT (BEAKER) (test sqqk=162) 0 % NEUTROPHILS ABSOLUTE COUNT (BEAKER) (test cofe=448) 8.06 K/ L 1.78-5.38 LYMPHOCYTES ABSOLUTE COUNT (BEAKER) (test pead=799) 0.37 K/ L 1.32-3.57 MONOCYTES ABSOLUTE COUNT (BEAKER) (test ydqs=388) 0.65 K/ L 0.30-0.82 EOSINOPHILS ABSOLUTE COUNT (BEAKER) (test oscz=537) 0.10 K/ L 0.04-0.54 BASOPHILS ABSOLUTE COUNT (BEAKER) (test ypxf=388) 0.03 K/ L 0.01-0.08 IMMATURE GRANULOCYTES-RELATIVE PERCENT (BEAKER) (test wdpu=0202) 1 % 0-1 PROTHROMBIN [id number] 05:17:00* Test Item Value Reference Range Comments PROTIME (BEAKER) (test jzti=299) 18.6 seconds 11.7-14.7 INR (BEAKER) (test xkjy=611) 1.6 <=5.9 RECOMMENDED COUMADIN/WARFARIN INR THERAPY RANGESSTANDARD DOSE: 2.0 - 3.0 Inclu sun: PROPHYLAXIS for venous thrombosis, systemic embolization; TREATMENT for santo ous thrombosis and/or pulmonary embolus.HIGH RISK: Target INR is 2.5-3.5 for pat ients with mechanical heart valves.POCT-GLUCOSE [id number] 22:17:00* Test Item Value Reference Range Comments POC-GLUCOSE METER (BEAKER) (test rmga=4594) 341 mg/dL 70-110 Notified JOSE LEAL/TESTED AT [address] [address] POCT-GLUCOSE [id number] 17:04:00* Test Item Value Reference Range Comments POC-GLUCOSE METER (BEAKER) (test uryc=0963) 324 mg/dL 70-110 Notified JOSE LEAL/TESTED AT [address] [address] POCT-GLUCOSE [id number] 12:55:00* Test Item Value Reference Range Comments POC-GLUCOSE METER (BEAKER) (test zgcq=6715) 216 mg/dL 70-110 TESTED AT [facility] [address] [facility] [address] POCT-GLUCOSE [id number] 08:10:00* Test Item Value Reference Range Comments POC-GLUCOSE METER (BEAKER) (test qnmm=2631) 211 mg/dL 70-110 TESTED AT [facility] [address] [facility] [address] CALCIUM, [id number] 06:52:00* Test Item Value Reference Range Comments CALCIUM IONIZED (BEAKER) (test vrgc=423) 1.04 mmol/L 1.12-1.27 PH, BLOOD (BEAKER) (test fbvl=7360) 7.43 [id number] 05:59:00* Test Item Value Reference Range Comments PHOSPHORUS (BEAKER) (test omyq=137) 2.7 mg/dL 2.3-4.7 [id number] 05:59:00* Test Item Value Reference Range Comments MAGNESIUM (BEAKER) (test fuqu=590) 2.6 mg/dL 1.6-2.6 COMPREHENSIVE METABOLIC [id number] 05:59:00* Test Item Value Reference Range Comments TOTAL PROTEIN (BEAKER) (test gqod=758) 5.6 gm/dL 6.0-8.3 ALBUMIN (BEAKER) (test bjln=3688) 3.4 g/dL 3.5-5.0 ALKALINE PHOSPHATASE (BEAKER) (test nohl=867) 109 U/L 40-150 BILIRUBIN TOTAL (BEAKER) (test wbyz=548) 17.0 mg/dL 0.2-1.2 SODIUM (BEAKER) (test ikwq=591) 127 meq/L 136-145 POTASSIUM (BEAKER) (test kqkk=390) 4.3 meq/L 3.5-5.1 CHLORIDE (BEAKER) (test mpqz=514) 97 meq/L 98-107 CO2 (BEAKER) (test pxyf=047) 20 meq/L 22-29 BLOOD UREA NITROGEN (BEAKER) (test igtl=844) 100 mg/dL 7-21 CREATININE (BEAKER) (test yfnq=796) 1.44 mg/dL 0.57-1.25 GLUCOSE RANDOM (BEAKER) (test mbgo=643) 199 mg/dL 70-105 CALCIUM (BEAKER) (test uhwr=594) 8.5 mg/dL 8.4-10.2 AST (SGOT) (BEAKER) (test oywq=050) 23 U/L 5-34 ALT (SGPT) (BEAKER) (test hmit=422) 17 U/L 6-55 EGFR (BEAKER) (test gtbr=8640) 52 mL/min/1.73 sq m ESTIMATED GFR IS NOT ACCURATE CREATININE CLEARANCE IN PREDICTING GLOMERULAR FILTRATION RATE. ESTIMATED GFR IS NOT APPLICABLE FOR DIALYSIS PATIENTS. Specimen markedly ictericPROTHROMBIN TIME/[id number] 05:47:00* Test Item Value Reference Range Comments PROTIME (BEAKER) (test nikk=430) 20.4 seconds 11.7-14.7 INR (BEAKER) (test cnit=963) 1.8 <=5.9 RECOMMENDED COUMADIN/WARFARIN INR THERAPY RANGESSTANDARD DOSE: 2.0 - 3.0 Inclu sun: PROPHYLAXIS for venous thrombosis, systemic embolization; TREATMENT for santo ous thrombosis and/or pulmonary embolus.HIGH RISK: Target INR is 2.5-3.5 for pat ients with mechanical heart valves.CBC W/PLT COUNT & AUTO [id number] 05:41:00* Test Item Value Reference Range Comments WHITE BLOOD CELL COUNT (BEAKER) (test ulij=860) 8.1 K/ L 3.5-10.5 RED BLOOD CELL COUNT (BEAKER) (test kffg=212) 2.40 M/ L 4.63-6.08 HEMOGLOBIN (BEAKER) (test nvhz=736) 7.8 GM/DL 13.7-17.5 HEMATOCRIT (BEAKER) (test fwnp=341) 23.8 % 40.1-51.0 MEAN CORPUSCULAR VOLUME (BEAKER) (test vtlv=585) 99.2 fL 79.0-92.2 MEAN CORPUSCULAR HEMOGLOBIN (BEAKER) (test netp=940) 32.5 pg 25.7-32.2 MEAN CORPUSCULAR HEMOGLOBIN CONC (BEAKER) (test llgf=059) 32.8 GM/DL 32.3-36.5 RED CELL DISTRIBUTION WIDTH (BEAKER) (test brco=615) 15.6 % 11.6-14.4 PLATELET COUNT (BEAKER) (test offa=114) 100 K/CU MM 150-450 MEAN PLATELET VOLUME (BEAKER) (test wyzu=210) 10.3 fL 9.4-12.4 NUCLEATED RED BLOOD CELLS (BEAKER) (test wvrn=175) 0 /100 WBC 0-0 NEUTROPHILS RELATIVE PERCENT (BEAKER) (test dtao=762) 87 % LYMPHOCYTES RELATIVE PERCENT (BEAKER) (test yyho=244) 5 % MONOCYTES RELATIVE PERCENT (BEAKER) (test cvxw=775) 7 % EOSINOPHILS RELATIVE PERCENT (BEAKER) (test nbcv=870) 1 % BASOPHILS RELATIVE PERCENT (BEAKER) (test abio=770) 0 % NEUTROPHILS ABSOLUTE COUNT (BEAKER) (test mohg=190) 7.02 K/ L 1.78-5.38 LYMPHOCYTES ABSOLUTE COUNT (BEAKER) (test hjls=784) 0.37 K/ L 1.32-3.57 MONOCYTES ABSOLUTE COUNT (BEAKER) (test zdtz=570) 0.54 K/ L 0.30-0.82 EOSINOPHILS ABSOLUTE COUNT (BEAKER) (test flds=441) 0.04 K/ L 0.04-0.54 BASOPHILS ABSOLUTE COUNT (BEAKER) (test mubc=498) 0.02 K/ L 0.01-0.08 IMMATURE GRANULOCYTES-RELATIVE PERCENT (BEAKER) (test pzgp=6734) 1 % 0-1 HEMOGLOBIN AND [id number] 22:58:00* Test Item Value Reference Range Comments HEMOGLOBIN (BEAKER) (test xngv=344) 7.9 GM/DL 13.7-17.5 HEMATOCRIT (BEAKER) (test qlrp=911) 23.8 % 40.1-51.0 POCT-GLUCOSE [id number] 22:15:00* Test Item Value Reference Range Comments POC-GLUCOSE METER (BEAKER) (test jqli=1952) 312 mg/dL 70-110 Procedure Error/TESTED AT [address] [address] POCT-GLUCOSE [id number] 15:52:00* Test Item Value Reference Range Comments POC-GLUCOSE METER (BEAKER) (test xmxi=2643) 260 mg/dL 70-110 TESTED AT [place] [id number] [facility] [address] POCT-GLUCOSE [id number] 14:34:00* Test Item Value Reference Range Comments POC-GLUCOSE METER (BEAKER) (test krvf=6180) 287 mg/dL 70-110 TESTED AT [facility] [address] [facility] [address] HEMOGLOBIN AND [id number] 14:03:00* Test Item Value Reference Range Comments HEMOGLOBIN ([facility]) (test vnca=147) 7.7 GM/DL 13.7-17.5 HEMATOCRIT ([facility]) (test hctl=140) 23.2 % 40.1-51.0 BODY FLUID CULTURE + GRAM [id number] 13:41:00* Test Item Value Reference Range Comments CULTURE ([facility]) (test dzfa=1849) No growth GRAM STAIN RESULT ([facility]) (test aubc=4108) 1+ WBCs This is an appended report. These results have been appended to a previously preliminary verified report. GRAM STAIN RESULT ([facility]) (test vdzc=12379) No organisms seen This is an appended report. These results have been appended to a previously preliminary verified report. TOXOPLASMA GONDII ANTIBODY, [id number] 11:08:00* Test Item Value Reference Range Comments TOXOPLASMA GONDII IGG QUANTITATIVE ([facility]) (test jzzi=4765) < IU/mL <10.0 Toxoplasma Gondii IgG Result Interpretation: </=9.9 IU/mL Normal 10-11 IU/mL Equivocal >/=12 IU/mL PositivePOCT-GLUCOSE [id number] 09:04:00 * Test Item Value Reference Range Comments POC-GLUCOSE METER ([facility]) (test ioeo=5499) 230 mg/dL 70-110 TESTED AT [facility] [address] [facility] [address] CALCIUM, [id number] 07:39:00* Test Item Value Reference Range Comments CALCIUM IONIZED ([facility]) (test ruzg=657) 1.03 mmol/L 1.12-1.27 PH, BLOOD ([facility]) (test qvgu=9096) 7.42 [id number] 07:05:00* Test Item Value Reference Range Comments MAGNESIUM ([facility]) (test hvvs=408) 2.4 mg/dL 1.6-2.6 COMPREHENSIVE METABOLIC [id number] 07:05:00* Test Item Value Reference Range Comments TOTAL PROTEIN ([facility]) (test yygc=587) 5.1 gm/dL 6.0-8.3 ALBUMIN ([facility]) (test kirb=8033) 2.9 g/dL 3.5-5.0 ALKALINE PHOSPHATASE (BEAKER) (test vcyb=595) 119 U/L 40-150 BILIRUBIN TOTAL (BEAKER) (test qwph=446) 18.3 mg/dL 0.2-1.2 SODIUM (BEAKER) (test kgcb=122) 126 meq/L 136-145 POTASSIUM (BEAKER) (test rqaq=457) 4.4 meq/L 3.5-5.1 CHLORIDE (BEAKER) (test mxeh=581) 96 meq/L 98-107 CO2 (BEAKER) (test wcut=749) 23 meq/L 22-29 BLOOD UREA NITROGEN (BEAKER) (test mccb=045) 103 mg/dL 7-21 CREATININE (BEAKER) (test doou=218) 1.44 mg/dL 0.57-1.25 GLUCOSE RANDOM (BEAKER) (test apsa=475) 257 mg/dL 70-105 CALCIUM (BEAKER) (test sfqb=826) 8.1 mg/dL 8.4-10.2 AST (SGOT) (BEAKER) (test qfvs=582) 23 U/L 5-34 ALT (SGPT) (BEAKER) (test fdge=382) 18 U/L 6-55 EGFR (BEAKER) (test weld=9146) 52 mL/min/1.73 sq m ESTIMATED GFR IS NOT ACCURATE CREATININE CLEARANCE IN PREDICTING GLOMERULAR FILTRATION RATE. ESTIMATED GFR IS NOT APPLICABLE FOR DIALYSIS PATIENTS. Specimen markedly [id number] 07:02:00* Test Item Value Reference Range Comments PHOSPHORUS (BEAKER) (test ofbc=661) 2.4 mg/dL 2.3-4.7 PROTHROMBIN [id number] 05:45:00* Test Item Value Reference Range Comments PROTIME (BEAKER) (test eblr=401) 22.5 seconds 11.7-14.7 INR (BEAKER) (test ctpz=001) 2.0 <=5.9 RECOMMENDED COUMADIN/WARFARIN INR THERAPY RANGESSTANDARD DOSE: 2.0 - 3.0 Inclu sun: PROPHYLAXIS for venous thrombosis, systemic embolization; TREATMENT for santo ous thrombosis and/or pulmonary embolus.HIGH RISK: Target INR is 2.5-3.5 for pat ients with mechanical heart valves.CBC W/PLT COUNT & AUTO [id number] 05:37:00* Test Item Value Reference Range Comments WHITE BLOOD CELL COUNT (BEAKER) (test nsqe=027) 10.3 K/ L 3.5-10.5 RED BLOOD CELL COUNT (BEAKER) (test rwdp=726) 2.61 M/ L 4.63-6.08 HEMOGLOBIN (BEAKER) (test zhpc=778) 8.3 GM/DL 13.7-17.5 HEMATOCRIT (BEAKER) (test nchr=471) 25.2 % 40.1-51.0 MEAN CORPUSCULAR VOLUME (BEAKER) (test rzjp=096) 96.6 fL 79.0-92.2 MEAN CORPUSCULAR HEMOGLOBIN (BEAKER) (test tyyx=360) 31.8 pg 25.7-32.2 MEAN CORPUSCULAR HEMOGLOBIN CONC (BEAKER) (test aqfi=012) 32.9 GM/DL 32.3-36.5 RED CELL DISTRIBUTION WIDTH (BEAKER) (test vfvj=868) 15.2 % 11.6-14.4 PLATELET COUNT (BEAKER) (test tqvq=624) 112 K/CU MM 150-450 MEAN PLATELET VOLUME (BEAKER) (test ssdn=554) 10.0 fL 9.4-12.4 NUCLEATED RED BLOOD CELLS (BEAKER) (test yjwh=246) 0 /100 WBC 0-0 NEUTROPHILS RELATIVE PERCENT (BEAKER) (test rfvs=533) 90 % LYMPHOCYTES RELATIVE PERCENT (BEAKER) (test bdbp=017) 3 % MONOCYTES RELATIVE PERCENT (BEAKER) (test saqv=980) 6 % EOSINOPHILS RELATIVE PERCENT (BEAKER) (test tqce=696) 0 % BASOPHILS RELATIVE PERCENT (BEAKER) (test kllw=396) 0 % NEUTROPHILS ABSOLUTE COUNT (BEAKER) (test hnve=181) 9.29 K/ L 1.78-5.38 LYMPHOCYTES ABSOLUTE COUNT (BEAKER) (test hfoe=709) 0.28 K/ L 1.32-3.57 MONOCYTES ABSOLUTE COUNT (BEAKER) (test yvxg=102) 0.61 K/ L 0.30-0.82 EOSINOPHILS ABSOLUTE COUNT (BEAKER) (test vjjr=767) 0.01 K/ L 0.04-0.54 BASOPHILS ABSOLUTE COUNT (BEAKER) (test sauw=732) 0.02 K/ L 0.01-0.08 IMMATURE GRANULOCYTES-RELATIVE PERCENT (BEAKER) (test ydgd=6640) 1 % 0-1 POCT-GLUCOSE [id number] 18:42:00* Test Item Value Reference Range Comments POC-GLUCOSE METER (BEAKER) (test kwol=8545) 266 mg/dL 70-110 TESTED AT [facility] [address] [address] U/S, [id number] 15:37:00Reason for exam:->ascitesFINAL REPORT Indication: Ascites. Technique: Ultrasound guided paracentesis. Findings:Preliminary ultrasound confirms ascites. A safe window was identified in the right lower quadrant. The procedure was explained to the patient and informed consent was signed. The skin was marked and prepped in s tandard sterile fashion. Lidocaine was used for local anesthesia. A 5 Maldivian nee dle catheter system was advanced into the peritoneal space. 6500 cc slightly josh k yellow fluid was taken off. Patient tolerated the procedure well. Impression: Ultrasound guided paracentesis. Signed: Kwan Lockhart [facility] Verified Date/ Time: 04/27/2018 15:37:53 Reading Location: [address] Ortho Consult Reading Room FLUID CELL COUNT WITH [id number] 13:23:00* Test Item Value Reference Range Comments APPEARANCE FLUID (BEAKER) (test ghoa=977) Slightly Hazy Clear COLOR FLUID (BEAKER) (test ygxt=155) Yellow Colorless, Straw RBC FLUID (BEAKER) (test yaay=634) 1755 /cu mm <=1 ADJUSTED WBC FLUID (BEAKER) (test adyt=7467) 1125 /cu mm <=5 LINING CELLS (BEAKER) (test ammf=6336) 0 /cu mm <=1 NEUTROPHILS FLUID (BEAKER) (test lnol=4049) 63 % LYMPHS FLUID (BEAKER) (test jzho=599) 11 % MONO/MACROPHAGE FLUID (BEAKER) (test zgqg=966) 26 % EOSINOPHILS FLUID (BEAKER) (test azsv=197) 0 % BASO FLUID (BEAKER) (test ipea=784) 0 % CONTAINER BODY FLUID (BEAKER) (test qwcp=7025) EDTA Tube POCT-GLUCOSE [id number] 13:02:00* Test Item Value Reference Range Comments POC-GLUCOSE METER (BEAKER) (test qjpp=0754) 245 mg/dL 70-110 TESTED AT [place] [id number] [address] POCT-GLUCOSE [id number] 12:28:00* Test Item Value Reference Range Comments POC-GLUCOSE METER (BEAKER) (test ediz=6228) 248 mg/dL 70-110 [address]ED AT [address] [address] HEPATITIS B PCR, [id number] 09:48:00* Test Item Value Reference Range Comments HBV NUMERIC RESULT (BEAKER) (test kpcb=3151) 87234 IU/mL <20 This test uses a Real-Time Polymerase Chain Reaction (RT-PCR) methodology and wa s performed using WILEY AmpliPrep/WILEY TaqMan HBV Test, v2.0 ([employer]Reportable range for this assay is 20 - 170,000,000 IU per mL ( 1.30 - 8.23 Log IU/mL).POCT-GLUCOSE [id number] 08:33:00* Test Item Value Reference Range Comments POC-GLUCOSE METER (BEAKER) (test nnry=5093) 251 mg/dL 70-110 [address]ED AT [address] [address] RAD, MANDIBLE, MIN 4 [id number] 08:03:00Reason for exam:->liver transplant evalShould this be performed at the bedside?->YesFINAL REPORT COMPARISON: None. FINDINGS: Multiple views of the mandible are submitted . No gross acute fracture or dislocation. Paranasal sinuses are clear. No gross bony lesion. IMPRESSION: 1. Unremarkable mandible series. Signed: Ghassan Davis [facility]ort Verified Date/Time: 04/27/2018 08:03:24 Reading Location: [address] Transitional Reading Room IUM, [id number] 07:22:00* Test Item Value Reference Range Comments CALCIUM IONIZED (BEAKER) (test mvgg=883) 1.00 mmol/L 1.12-1.27 PH, BLOOD (BEAKER) (test lymh=5991) 7.44 [id number] 07:06:00* Test Item Value Reference Range Comments PHOSPHORUS (BEAKER) (test vfsd=047) 3.0 mg/dL 2.3-4.7 [id number] 07:06:00* Test Item Value Reference Range Comments MAGNESIUM (BEAKER) (test zgtn=961) 2.3 mg/dL 1.6-2.6 COMPREHENSIVE METABOLIC [id number] 07:06:00* Test Item Value Reference Range Comments TOTAL PROTEIN (BEAKER) (test iwjg=118) 5.2 gm/dL 6.0-8.3 ALBUMIN (BEAKER) (test ajqv=2919) 2.8 g/dL 3.5-5.0 ALKALINE PHOSPHATASE (BEAKER) (test xykl=070) 139 U/L 40-150 BILIRUBIN TOTAL (BEAKER) (test gqqo=354) 19.5 mg/dL 0.2-1.2 SODIUM (BEAKER) (test evml=578) 125 meq/L 136-145 POTASSIUM (BEAKER) (test sqkw=881) 4.3 meq/L 3.5-5.1 CHLORIDE (BEAKER) (test eaif=197) 94 meq/L 98-107 CO2 (BEAKER) (test wixs=875) 22 meq/L 22-29 BLOOD UREA NITROGEN (BEAKER) (test yldd=054) 96 mg/dL 7-21 CREATININE (BEAKER) (test sqku=388) 1.43 mg/dL 0.57-1.25 GLUCOSE RANDOM (BEAKER) (test yiba=703) 240 mg/dL 70-105 CALCIUM (BEAKER) (test zyey=742) 8.0 mg/dL 8.4-10.2 AST (SGOT) (BEAKER) (test fswq=669) 30 U/L 5-34 ALT (SGPT) (BEAKER) (test aaxf=830) 26 U/L 6-55 EGFR (BEAKER) (test qzgh=6100) 52 mL/min/1.73 sq m ESTIMATED GFR IS NOT ACCURATE CREATININE CLEARANCE IN PREDICTING GLOMERULAR FILTRATION RATE. ESTIMATED GFR IS NOT APPLICABLE FOR DIALYSIS PATIENTS. Specimen markedly ictericHEPATIC FUNCTION [id number] 07:06:00* Test Item Value Reference Range Comments TOTAL PROTEIN (BEAKER) (test xmot=202) 5.2 gm/dL 6.0-8.3 ALBUMIN (BEAKER) (test uqkf=2879) 2.8 g/dL 3.5-5.0 BILIRUBIN TOTAL (BEAKER) (test sceq=556) 19.5 mg/dL 0.2-1.2 BILIRUBIN DIRECT (BEAKER) (test yaaj=347) 12.3 mg/dL 0.1-0.5 ALKALINE PHOSPHATASE (BEAKER) (test sfip=099) 139 U/L 40-150 AST (SGOT) (BEAKER) (test hhdx=715) 30 U/L 5-34 ALT (SGPT) (BEAKER) (test ywrn=747) 26 U/L 6-55 Specimen markedly ictericB-TYPE NATRIURETIC FACTOR (BNP)2018-04-27 06:55:00* Test Item Value Reference Range Comments B-TYPE NATRIURETIC PEPTIDE (BEAKER) (test dezz=567) 56 pg/mL 0-100 PROTHROMBIN [id number] 06:37:00* Test Item Value Reference Range Comments PROTIME (BEAKER) (test gook=747) 24.8 seconds 11.7-14.7 INR (BEAKER) (test pioc=909) 2.2 <=5.9 RECOMMENDED COUMADIN/WARFARIN INR THERAPY RANGESSTANDARD DOSE: 2.0 - 3.0 Inclu sun: PROPHYLAXIS for venous thrombosis, systemic embolization; TREATMENT for santo ous thrombosis and/or pulmonary embolus.HIGH RISK: Target INR is 2.5-3.5 for pat ients with mechanical heart valves.CBC W/PLT COUNT & AUTO [id number] 05:55:00* Test Item Value Reference Range Comments WHITE BLOOD CELL COUNT (BEAKER) (test bnmi=724) 11.3 K/ L 3.5-10.5 RED BLOOD CELL COUNT (BEAKER) (test yxeu=053) 2.77 M/ L 4.63-6.08 HEMOGLOBIN (BEAKER) (test tbqh=698) 9.0 GM/DL 13.7-17.5 HEMATOCRIT (BEAKER) (test kytu=515) 26.7 % 40.1-51.0 MEAN CORPUSCULAR VOLUME (BEAKER) (test dabm=759) 96.4 fL 79.0-92.2 MEAN CORPUSCULAR HEMOGLOBIN (BEAKER) (test bbot=051) 32.5 pg 25.7-32.2 MEAN CORPUSCULAR HEMOGLOBIN CONC (BEAKER) (test wpou=402) 33.7 GM/DL 32.3-36.5 RED CELL DISTRIBUTION WIDTH (BEAKER) (test xlxf=310) 15.0 % 11.6-14.4 PLATELET COUNT (BEAKER) (test duze=496) 109 K/CU MM 150-450 MEAN PLATELET VOLUME (BEAKER) (test eqci=958) 10.3 fL 9.4-12.4 NUCLEATED RED BLOOD CELLS (BEAKER) (test jadz=706) 0 /100 WBC 0-0 NEUTROPHILS RELATIVE PERCENT (BEAKER) (test njoh=973) 89 % LYMPHOCYTES RELATIVE PERCENT (BEAKER) (test vzli=129) 2 % MONOCYTES RELATIVE PERCENT (BEAKER) (test exeu=380) 7 % EOSINOPHILS RELATIVE PERCENT (BEAKER) (test nbgp=480) 0 % BASOPHILS RELATIVE PERCENT (BEAKER) (test eyrq=406) 0 % NEUTROPHILS ABSOLUTE COUNT (BEAKER) (test qkna=246) 10.08 K/ L 1.78-5.38 LYMPHOCYTES ABSOLUTE COUNT (BEAKER) (test xibq=634) 0.26 K/ L 1.32-3.57 MONOCYTES ABSOLUTE COUNT (BEAKER) (test kpae=629) 0.74 K/ L 0.30-0.82 EOSINOPHILS ABSOLUTE COUNT (BEAKER) (test clqk=526) 0.03 K/ L 0.04-0.54 BASOPHILS ABSOLUTE COUNT (BEAKER) (test quiu=667) 0.02 K/ L 0.01-0.08 IMMATURE GRANULOCYTES-RELATIVE PERCENT (BEAKER) (test ouho=9624) 1 % 0-1 [id number] 05:52:00* Test Item Value Reference Range Comments T3 TOTAL (BEAKER) (test buzq=234) 60 ng/dL 48-159 POCT-GLUCOSE [id number] 23:37:00* Test Item Value Reference Range Comments POC-GLUCOSE METER (BEAKER) (test vtzm=8107) 227 mg/dL 70-110 TESTED AT [facility] [address] [place] [address] RAD, CHEST, 2 [id number] 21:57:00Reason for exam:->liver transplant evalShould this be performed at the bedside?->YesFINAL REPORT Examination: Two view Chest X-ray. CLINICAL HISTORY: Liver transplant evaluation COMPARISON: 03/16/2012 The cardiomediastinal and hilar contours are unremarkable. There is significant elevation of the right hemidiaphragm. This correlates with a subdiaphragmatic fluid collection visualized on MRI of the abdomen performed earlier on the same date. Curvilinear opacity in the right lower lung suggests atelectasis or scarring. There is no pneumothorax, large pleural effusion, evidence of overt pulmonary edema or acute bony abnormality. Signed: Shashank Sorensen MDReport Verified Date/Time: 04/26/2018 21:57:43 Reading Location: [address] Reading Room -GLUCOSE [id number] 17:55:00* Test Item Value Reference Range Comments POC-GLUCOSE METER (BUFFYSmartCells) (test apbl=7924) 211 mg/dL 70-110 [address]ED AT [address] [address] MR, ABDOMEN, WITHOUT [id number] 17:27:00FINAL REPORT MRI of the abdomen dated April 26, 2018 Comment: Multiplanar T1 and T2-weighted images of the abdomen were obtained. No intravenous contrast was not given. There is trace right pleural effusion with right lower lobe subsegmental atelectasis. Liver is cirrhotic in appearance. A large subcapsular complex fluid collection is noted adjacent to the right hepatic lobe measuring at least 9.1 x 20.2 x 18.6 cm. There is layering of the fluid may represent hemolyzed hematoma. Spleen is enlarged measuring approximately 23.5 x 7.7 x 13.3 cm. Gallbladder is distended. No gallstone or biliary dilatation is seen. Pancreas and adrenals are unremarkable. Both kidneys are normal in size. Small amount of ascites is seen in the abdomen and upper pelvis. IMPRESSION:1. Cirrhosis with splenomegaly.2. Large subcapsular complex fluid collection adjacent to the right hepatic lobe3. Small ascites and trace right pleural effusion. Signed: Oli Engel MDReport Verified Date/Time: 04/26/2018 17:27:55 Reading Location: [facility] C013Y CT Body Reading Room MEGALOVIRUS ANTIBODY, [id number] 14:38:00* Test Item Value Reference Range Comments CYTOMEGALOVIRUS, IGG (BEAKER) (test xxdt=5765) Negative Negative, Equivocal CMV IgG Result Interpretation: </=0.8 Al Negative 0.9-1.0 Al Equivocal >/=1.1 Al PositiveCYTOMEGALOVIRUS ANTIBODY, [id number] 14:38:00* Test Item Value Reference Range Comments CYTOMEGALOVIRUS IGM ANTIBODY (BEAKER) (test jyqs=5438) Positive Negative, Equivocal CMV IgM Result Interpretation: </=0.8 Al Negative 0.9-1.0 Al Equivocal > /=1.1 Al PositiveEBV ANTIBODY, [id number] 14:38:00* Test Item Value Reference Range Comments PAU WEEMS VIRAL CAPSID ANTIGEN IGG (BEAKER) (test edlk=0955) Positive Negative, Equivocal Pau Weems Viral Capsid Antigen IgG Result Interpretation: </=0.8 Al Negative 0.9-1.0 Al Equivocal >/=1.1 Al PositiveEBV ANTIBODY, [id number] 14:38:00* Test Item Value Reference Range Comments PAU WEEMS VIRAL CAPSID ANTIGEN IGM (BEAKER) (test dhdf=9502) Negative Negative, Equivocal Pau Weems Viral Capsid Antigen IgM Result Interpretation: </=0.8 Al Negative 0.9-1.0 Al Equivocal >/=1.1 Al PositivePOCT-GLUCOSE [id number] 13:27:00* Test Item Value Reference Range Comments POC-GLUCOSE METER (BEAKER) (test lkhf=2726) 234 mg/dL 70-110 TESTED AT [place] [id number] HEMOGLOBIN [id number] 10:13:00* Test Item Value Reference Range Comments HEMOGLOBIN A1C (BEAKER) (test avow=553) 5.3 % 4.3-6.1 POCT-GLUCOSE [id number] 08:36:00* Test Item Value Reference Range Comments POC-GLUCOSE METER (BEAKER) (test wenb=3009) 190 mg/dL 70-110 TESTED AT [address] [address] HEPATIC FUNCTION [id number] 06:43:00* Test Item Value Reference Range Comments TOTAL PROTEIN (BEAKER) (test jbvr=921) 6.0 gm/dL 6.0-8.3 ALBUMIN (BEAKER) (test rlot=2588) 3.2 g/dL 3.5-5.0 BILIRUBIN TOTAL (BEAKER) (test lwma=963) 21.4 mg/dL 0.2-1.2 BILIRUBIN DIRECT (BEAKER) (test ainq=427) 13.4 mg/dL 0.1-0.5 ALKALINE PHOSPHATASE (BEAKER) (test kmzj=758) 163 U/L 40-150 AST (SGOT) (BEAKER) (test lpnv=378) 51 U/L 5-34 ALT (SGPT) (BEAKER) (test mrse=674) 34 U/L 6-55 Specimen markedly ictericCOMPREHENSIVE METABOLIC [id number] 06:43:00* Test Item Value Reference Range Comments TOTAL PROTEIN (BEAKER) (test buuj=896) 6.0 gm/dL 6.0-8.3 ALBUMIN (BEAKER) (test kcqq=7417) 3.2 g/dL 3.5-5.0 ALKALINE PHOSPHATASE (BEAKER) (test etiv=917) 163 U/L 40-150 BILIRUBIN TOTAL (BEAKER) (test gcwd=651) 21.4 mg/dL 0.2-1.2 SODIUM (BEAKER) (test rnjr=435) 124 meq/L 136-145 POTASSIUM (BEAKER) (test bhbl=087) 4.2 meq/L 3.5-5.1 CHLORIDE (BEAKER) (test yfgb=900) 93 meq/L 98-107 CO2 (BEAKER) (test xvuq=091) 22 meq/L 22-29 BLOOD UREA NITROGEN (BEAKER) (test rnux=222) 92 mg/dL 7-21 CREATININE (BEAKER) (test fucf=593) 1.66 mg/dL 0.57-1.25 GLUCOSE RANDOM (BEAKER) (test ehda=718) 201 mg/dL 70-105 CALCIUM (BEAKER) (test qtbn=198) 8.5 mg/dL 8.4-10.2 AST (SGOT) (BEAKER) (test sfyc=548) 51 U/L 5-34 ALT (SGPT) (BEAKER) (test buas=588) 34 U/L 6-55 EGFR (BEAKER) (test tjiz=6160) 44 mL/min/1.73 sq m ESTIMATED GFR IS NOT ACCURATE CREATININE CLEARANCE IN PREDICTING GLOMERULAR FILTRATION RATE. ESTIMATED GFR IS NOT APPLICABLE FOR DIALYSIS PATIENTS. Specimen markedly [id number] 06:42:00* Test Item Value Reference Range Comments PHOSPHORUS (BEAKER) (test xxqg=172) 3.6 mg/dL 2.3-4.7 [id number] 06:42:00* Test Item Value Reference Range Comments MAGNESIUM (BEAKER) (test mgrw=109) 2.5 mg/dL 1.6-2.6 CREATINE KINASE (CK)2018-04-26 06:42:00* Test Item Value Reference Range Comments CREATINE KINASE TOTAL (BEAKER) (test tuvn=292) 36 U/L 29-200 CALCIUM, [id number] 06:15:00* Test Item Value Reference Range Comments CALCIUM IONIZED (BEAKER) (test stku=013) 1.00 mmol/L 1.12-1.27 PH, BLOOD (BEAKER) (test ouud=3059) 7.40 PROTHROMBIN [id number] 06:13:00* Test Item Value Reference Range Comments PROTIME (BEAKER) (test xyde=787) 27.4 seconds 11.7-14.7 INR (BEAKER) (test igug=014) 2.6 <=5.9 RECOMMENDED COUMADIN/WARFARIN INR THERAPY RANGESSTANDARD DOSE: 2.0 - 3.0 Inclu sun: PROPHYLAXIS for venous thrombosis, systemic embolization; TREATMENT for santo ous thrombosis and/or pulmonary embolus.HIGH RISK: Target INR is 2.5-3.5 for pat ients with mechanical heart valves.CBC W/PLT COUNT & AUTO [id number] 06:07:00* Test Item Value Reference Range Comments WHITE BLOOD CELL COUNT (BEAKER) (test cybj=355) 12.6 K/ L 3.5-10.5 RED BLOOD CELL COUNT (BEAKER) (test ijwt=318) 3.17 M/ L 4.63-6.08 HEMOGLOBIN (BEAKER) (test gtmo=490) 10.3 GM/DL 13.7-17.5 HEMATOCRIT (BEAKER) (test skfu=026) 30.0 % 40.1-51.0 MEAN CORPUSCULAR VOLUME (BEAKER) (test llat=388) 94.6 fL 79.0-92.2 MEAN CORPUSCULAR HEMOGLOBIN (BEAKER) (test vmfo=451) 32.5 pg 25.7-32.2 MEAN CORPUSCULAR HEMOGLOBIN CONC (BEAKER) (test lvud=713) 34.3 GM/DL 32.3-36.5 RED CELL DISTRIBUTION WIDTH (BEAKER) (test ealp=216) 14.9 % 11.6-14.4 PLATELET COUNT (BEAKER) (test ytqg=064) 123 K/CU MM 150-450 MEAN PLATELET VOLUME (BEAKER) (test juya=061) 10.1 fL 9.4-12.4 NUCLEATED RED BLOOD CELLS (BEAKER) (test hqnz=392) 0 /100 WBC 0-0 NEUTROPHILS RELATIVE PERCENT (BEAKER) (test ybbf=827) 90 % LYMPHOCYTES RELATIVE PERCENT (BEAKER) (test febg=597) 3 % MONOCYTES RELATIVE PERCENT (BEAKER) (test bcei=901) 5 % EOSINOPHILS RELATIVE PERCENT (BEAKER) (test sabg=627) 0 % BASOPHILS RELATIVE PERCENT (BEAKER) (test vgar=945) 0 % NEUTROPHILS ABSOLUTE COUNT (BEAKER) (test zlsg=184) 11.34 K/ L 1.78-5.38 LYMPHOCYTES ABSOLUTE COUNT (BEAKER) (test kybj=338) 0.37 K/ L 1.32-3.57 MONOCYTES ABSOLUTE COUNT (BEAKER) (test nnoe=738) 0.68 K/ L 0.30-0.82 EOSINOPHILS ABSOLUTE COUNT (BEAKER) (test jjcl=663) 0.02 K/ L 0.04-0.54 BASOPHILS ABSOLUTE COUNT (BEAKER) (test bxsa=657) 0.03 K/ L 0.01-0.08 IMMATURE GRANULOCYTES-RELATIVE PERCENT (BEAKER) (test hzws=4460) 1 % 0-1 [id number] 03:05:00* Test Item Value Reference Range Comments RPR SCREEN (BEAKER) (test loec=530) Nonreactive Nonreactive CRYPTOCOCCAL [id number] 03:03:00* Test Item Value Reference Range Comments CRYPTOCOCCAL ANTIGEN, SERUM (BEAKER) (test qjtf=7988) Negative Negative, Interference URINALYSIS W/ [id number] 22:25:00* Test Item Value Reference Range Comments COLOR (BEAKER) (test jcmr=617) Brown CLARITY (BEAKER) (test qwvg=684) Hazy SPECIFIC GRAVITY UA (BEAKER) (test hcnf=275) 1.012 1.001-1.035 PH UA (BEAKER) (test vrbz=781) 5.0 5.0-8.0 PROTEIN UA (BEAKER) (test htbn=517) 20 mg/dL Negative GLUCOSE UA (BEAKER) (test donz=213) Negative Negative KETONES UA (BEAKER) (test fxyh=939) Negative Negative BILIRUBIN UA (BEAKER) (test afnh=315) Positive Negative BLOOD UA (BEAKER) (test aysq=850) Small Negative NITRITE UA (BEAKER) (test egih=428) Negative Negative LEUKOCYTE ESTERASE UA (BEAKER) (test zyhr=824) Small Negative UROBILINOGEN UA (BEAKER) (test xkvs=991) 0.2 mg/dL 0.2-1.0 RBC UA (BEAKER) (test wtyu=621) 2 /HPF WBC UA (BEAKER) (test hjvs=563) 7 /HPF MUCUS (BEAKER) (test darn=3853) Occasional SQUAMOUS EPITHELIAL (BEAKER) (test itvy=974) 4 /HPF HYALINE CASTS (BEAKER) (test dwky=910) 29 /LPF SOURCE(BEAKER) (test nuzl=0293) Urine, Clean Catch POCT-GLUCOSE [id number] 21:24:00* Test Item Value Reference Range Comments POC-GLUCOSE METER (BEAKER) (test jufd=4748) 260 mg/dL 70-110 TESTED AT [facility] [address] [place] [id number] 20:07:00* Test Item Value Reference Range Comments PROSTATE SPECIFIC ANTIGEN (BEAKER) (test emom=949) 0.3 ng/mL 0.0-4.0 CARCINOEMBRYONIC ANTIGEN (CEA)2018-04-25 20:07:00* Test Item Value Reference Range Comments CARCINOEMBRYONIC ANTIGEN (BEAKER) (test klpk=758) 3.0 ng/mL 0.0-5.0 HIV-1 ANTIGEN WITH HIV-1/2 [id number] 20:07:00* Test Item Value Reference Range Comments HIV-1 ANTIGEN WITH HIV 1\\T\\2 ANTIBODY (2) (BEAKER) (test ekxe=2796) Nonreactive Nonreactive VITAMIN D, [id number] 19:27:00* Test Item Value Reference Range Comments VITAMIN D 25-OH (BEAKER) (test eyts=9024) 3.6 ng/mL 6.6-49.9 Effective 04/04/2017: Reference Range ChangeNew: 6.6-49.9 ng/mL Previous: 13.0 -47.8 ng/mLRecommended Vitamin D Target Range: 30.0-40.0 ng/[id number] 19:18:00* Test Item Value Reference Range Comments THYROID STIMULATING HORMONE (BEAKER) (test njes=145) 2.85 uIU/mL 0.35-4.94 [id number] 19:13:00* Test Item Value Reference Range Comments T4 TOTAL (BEAKER) (test gkoh=523) 5.0 ug/dL 4.9-11.7 [id number] 18:56:00* Test Item Value Reference Range Comments TRANSFERRIN (BEAKER) (test ehpf=190) 86 mg/dL 174-382 Specimen markedly [id number] 18:10:00* Test Item Value Reference Range Comments ETHANOL (BEAKER) (test ugzj=344) < mg/dL <=10 BLOOD GAS, [id number] 18:07:00* Test Item Value Reference Range Comments PH ARTERIAL (BEAKER) (test inuk=032) 7.45 7.35-7.45 PCO2 ARTERIAL (BEAKER) (test blrt=796) 30 mmHg 35-45 PO2 ARTERIAL (BEAKER) (test inve=893) 64 mmHg 80-90 O2 SATURATION ARTERIAL (BEAKER) (test qfbf=837) 93.3 % 96.0-97.0 HCO3 ARTERIAL (BEAKER) (test lcoq=148) 20 mmol/L 21-29 BASE EXCESS ARTERIAL (BEAKER) (test nkhu=337) -2.7 mmol/L -2.0-3.0 PATIENT TEMPERATURE (BEAKER) (test gywx=0463) 37.5 C FIO2 (BEAKER) (test zhad=2152) 21.0 % LIPID [id number] 16:17:00* Test Item Value Reference Range Comments TRIGLYCERIDES (BEAKER) (test ceft=059) 83 mg/dL CHOLESTEROL (BEAKER) (test ozrr=999) 36 mg/dL HDL CHOLESTEROL (BEAKER) (test jnzo=869) < mg/dL LDL CHOLESTEROL CALCULATED (BEAKER) (test htdk=464) > mg/dL Unable to calculate Triglyceride Reference Range: Low Risk <150 Borderline 150-199 High Risk 200-499 Very High Risk >=500Cholesterol Reference Range: Low Risk <200 Borderline 200-239 High Risk >240HDL Cholesterol Reference Range: Low Risk >=60 High Risk <40LDL Cholesterol Reference Range: Optimal <100 Near Optimal 100-129 Borderline 130-159 High 160-189 Very High >=190 Specimen markedly [id number] 16:16:00* Test Item Value Reference Range Comments PHOSPHORUS (BEAKER) (test lehj=444) 3.9 mg/dL 2.3-4.7 [id number] 16:16:00* Test Item Value Reference Range Comments MAGNESIUM (BEAKER) (test trxl=046) 2.4 mg/dL 1.6-2.6 [id number] 15:35:00* Test Item Value Reference Range Comments PARTIAL THROMBOPLASTIN TIME (BEAKER) (test vybs=870) 33.7 seconds 22.5-36.0 [id number] 15:34:00* Test Item Value Reference Range Comments FIBRINOGEN LEVEL (BEAKER) (test wlxp=937) 308 mg/dl 225-434 CALCIUM, [id number] 15:32:00* Test Item Value Reference Range Comments CALCIUM IONIZED (BEAKER) (test taeq=282) 1.04 mmol/L 1.12-1.27 PH, BLOOD (BEAKER) (test moie=7524) 7.40 HEPATITIS B CORE ANTIBODY, [id number] 15:23:00* Test Item Value Reference Range Comments HEPATITIS B CORE TOTAL ANTIBODY (BEAKER) (test essy=654) Reactive Nonreactive HEPATITIS A ANTIBODY, [id number] 12:36:00* Test Item Value Reference Range Comments HEPATITIS A IGG ANTIBODY (BEAKER) (test nsaa=7992) Reactive Nonreactive HEPATITIS B SURFACE [id number] 12:36:00* Test Item Value Reference Range Comments HEPATITIS B SURFACE ANTIBODY (JACKI) (test zpqf=252) < mIU/mL <8.0 IMMUNOGLOBULIN G (IGG)2018-04-25 12:09:00* Test Item Value Reference Range Comments IMMUNOGLOBULIN G (IGG) (JACKI) (test pwiq=862) 1617 mg/dL 540-1,822 U/S, RENAL, [id number] 11:49:00Do tomorrow on 04/25. Not todayReason for exam:->AKIShould this be performed at the bedside?->NoFINAL REPORT TECHNIQUE: Grayscale ultrasound of the kidneys and bladder. INDICATION: 52-year-old man with acute kidney injury. COMPARISON: None. FINDINGS: RIGHT KIDNEY: The right kidney measures 12.6 cm. Cortical thickness measures 1.9 cm. No solid mass lesions. No hydronephrosis. Renal artery and vein are patent. LEFT KIDNEY: The left kidney measures 13.5 cm. Cortical thickness measures 1.6 cm. No solid mass lesions. No hydronephrosis. Renal artery and vein are patent. BLADDER: Unremarkable. IMPRESSION:Unremarkable renal ultrasound. Signed: Chrissy Downs MDReport Verified Date/Time: 04/25/2018 11:49:13 Reading Location: [address] Ultrasound Reading Room U/S, DUPLEX, [id number] 11:46:00Reason for exam:->liver transplant eval. assess PV size and patency and for lesionsFINAL REPORT TECHNIQUE: Both Doppler and spectral Doppler ultrasound of the portal/hepatic vasculature. INDICATION: 52-year-old man for liver transplant evaluation. COMPARISON: None. FINDINGS: VASCULATURE: Main portal vein measures 1.6 cm in diameter. Portal veins are patent with normal waveform and directionality. Flow velocity in the main portal vein is within normal limits. The hepatic arteries are patent. The resistive indices in the proper and right hepatic artery are slightly elevated at 0.8. Resistive index in the left hepatic artery is within normal limits. Acceleration time in the proper hepatic artery is within normal limits. The hepatic veins and confluence are patent. Visualized portions of the splenic artery and vein are patent. OTHER FINDINGS: The spleen is enlarged, measuring 17.2 cm. No focal lesions in the visualized liver. IMPRESSION:Portal veins are patent. Slightly elevated resistive indices in the proper and right hepatic arteries, nonspecific and likely related to liver disease. No focal lesions in the visualized liver. Splenomegaly. Signed: Chrissy Downs MDReport Verified Date/Time: 04/25/2018 11:46:21 Reading Location: [address] Ultrasound Reading Room - NUCLEAR ANTIBODY (GILDARDO)2018-04-25 10:59:00* Test Item Value Reference Range Comments ANTI-NUCLEAR ANTIBODY (GILDARDO) (BEAKER) (test mlqa=555) Negative Negative Test performed by IFA method.Test performed by IFA method.SODIUM, RANDOM URINE 2018-04-25 08:56:00* Test Item Value Reference Range Comments SODIUM URINE (BEAKER) (test bqiv=108) < meq/L Reference Range: No NormalsCREATININE, RANDOM [id number] 08:50:00* Test Item Value Reference Range Comments CREATININE URINE (BEAKER) (test cwpu=057) 85.9 mg/dL Reference Range: No NormalsPROTEIN, RANDOM [id number] 08:50:00* Test Item Value Reference Range Comments PROTEIN, URINE (BEAKER) (test opml=7567) 14 mg/dL 0-14 [id number] 08:23:00* Test Item Value Reference Range Comments ALPHA-1 ANTITRYPSIN (BEAKER) (test crac=576) 184.50 mg/dL 90.00-200.00 Specimen slightly hemolyzed [id number] 06:14:00* Test Item Value Reference Range Comments FERRITIN (BEAKER) (test muux=643) 627 ng/mL 5-275 [id number] 06:12:00* Test Item Value Reference Range Comments PREALBUMIN (BEAKER) (test tnwq=989) 6 mg/dL 14-45 IRON, TIBC, % SAT. (WITHOUT FERRITIN)2018-04-25 06:12:00* Test Item Value Reference Range Comments IRON (BEAKER) (test ndpa=040) 42 ug/dL 40-160 TOTAL IRON BINDING CAPACITY (BEAKER) (test stwx=707) 109 ug/dL 250-450 IRON % SATURATION (2) (BEAKER) (test ybln=3258) 39 % 20-55 COMPREHENSIVE METABOLIC [id number] 05:53:00* Test Item Value Reference Range Comments TOTAL PROTEIN (BEAKER) (test jswl=172) 5.6 gm/dL 6.0-8.3 ALBUMIN (BEAKER) (test orju=1812) 2.5 g/dL 3.5-5.0 ALKALINE PHOSPHATASE (BEAKER) (test ggxz=555) 191 U/L 40-150 BILIRUBIN TOTAL (BEAKER) (test eihg=047) 19.9 mg/dL 0.2-1.2 SODIUM (BEAKER) (test aqwd=521) 123 meq/L 136-145 POTASSIUM (BEAKER) (test wkbe=378) 4.2 meq/L 3.5-5.1 CHLORIDE (BEAKER) (test ejdn=316) 96 meq/L 98-107 CO2 (BEAKER) (test feik=453) 18 meq/L 22-29 BLOOD UREA NITROGEN (BEAKER) (test ytok=127) 92 mg/dL 7-21 CREATININE (BEAKER) (test qquw=290) 1.53 mg/dL 0.57-1.25 GLUCOSE RANDOM (BEAKER) (test zjha=001) 161 mg/dL 70-105 CALCIUM (BEAKER) (test uzli=574) 8.4 mg/dL 8.4-10.2 AST (SGOT) (BEAKER) (test ukaf=654) 109 U/L 5-34 ALT (SGPT) (BEAKER) (test thna=802) 45 U/L 6-55 EGFR (BEAKER) (test mtli=6670) 48 mL/min/1.73 sq m ESTIMATED GFR IS NOT ACCURATE CREATININE CLEARANCE IN PREDICTING GLOMERULAR FILTRATION RATE. ESTIMATED GFR IS NOT APPLICABLE FOR DIALYSIS PATIENTS. Specimen markedly ictericHEPATIC FUNCTION [id number] 05:53:00* Test Item Value Reference Range Comments TOTAL PROTEIN (BEAKER) (test mfsx=733) 5.6 gm/dL 6.0-8.3 ALBUMIN (BEAKER) (test vwww=7555) 2.5 g/dL 3.5-5.0 BILIRUBIN TOTAL (BEAKER) (test glne=062) 19.9 mg/dL 0.2-1.2 BILIRUBIN DIRECT (BEAKER) (test fdqd=671) 12.7 mg/dL 0.1-0.5 ALKALINE PHOSPHATASE (BEAKER) (test idnb=303) 191 U/L 40-150 AST (SGOT) (BEAKER) (test xvdj=356) 109 U/L 5-34 ALT (SGPT) (BEAKER) (test jcrl=478) 45 U/L 6-55 Specimen markedly ictericGAMMA GLUTAMYL TRANSFERASE (GGT)2018-04-25 05:53:00* Test Item Value Reference Range Comments GAMMA GLUTAMYL TRANSFERASE (BEAKER) (test saqs=173) 40 U/L 9-64 Specimen markedly ictericCBC W/PLT COUNT & AUTO [id number] 05:47:00 * Test Item Value Reference Range Comments WHITE BLOOD CELL COUNT (BEAKER) (test mvol=903) 16.1 K/ L 3.5-10.5 RED BLOOD CELL COUNT (BEAKER) (test bewf=879) 3.52 M/ L 4.63-6.08 HEMOGLOBIN (BEAKER) (test ydks=955) 11.3 GM/DL 13.7-17.5 HEMATOCRIT (BEAKER) (test bkjr=006) 33.0 % 40.1-51.0 MEAN CORPUSCULAR VOLUME (BEAKER) (test ccon=115) 93.8 fL 79.0-92.2 MEAN CORPUSCULAR HEMOGLOBIN (BEAKER) (test gxzj=019) 32.1 pg 25.7-32.2 MEAN CORPUSCULAR HEMOGLOBIN CONC (BEAKER) (test yjzn=331) 34.2 GM/DL 32.3-36.5 RED CELL DISTRIBUTION WIDTH (BEAKER) (test mhll=994) 15.0 % 11.6-14.4 PLATELET COUNT (BEAKER) (test hrwx=052) 148 K/CU MM 150-450 MEAN PLATELET VOLUME (BEAKER) (test ohom=118) 10.4 fL 9.4-12.4 NUCLEATED RED BLOOD CELLS (BEAKER) (test pppk=339) 0 /100 WBC 0-0 NEUTROPHILS RELATIVE PERCENT (BEAKER) (test eaza=491) 91 % LYMPHOCYTES RELATIVE PERCENT (BEAKER) (test voct=268) 3 % MONOCYTES RELATIVE PERCENT (BEAKER) (test gnqy=284) 5 % EOSINOPHILS RELATIVE PERCENT (BEAKER) (test gpor=535) 0 % BASOPHILS RELATIVE PERCENT (BEAKER) (test solb=108) 0 % NEUTROPHILS ABSOLUTE COUNT (BEAKER) (test dhfb=639) 14.61 K/ L 1.78-5.38 LYMPHOCYTES ABSOLUTE COUNT (BEAKER) (test odhu=331) 0.44 K/ L 1.32-3.57 MONOCYTES ABSOLUTE COUNT (BEAKER) (test ktrd=804) 0.76 K/ L 0.30-0.82 EOSINOPHILS ABSOLUTE COUNT (BEAKER) (test asjf=642) 0.01 K/ L 0.04-0.54 BASOPHILS ABSOLUTE COUNT (BEAKER) (test vdtm=166) 0.02 K/ L 0.01-0.08 IMMATURE GRANULOCYTES-RELATIVE PERCENT (BEAKER) (test krgz=3012) 1 % 0-1 PROTHROMBIN TIME/[id number] 05:37:00* Test Item Value Reference Range Comments PROTIME (BEAKER) (test qgsi=470) 27.8 seconds 11.7-14.7 INR (BEAKER) (test engq=925) 2.6 <=5.9 RECOMMENDED COUMADIN/WARFARIN INR THERAPY RANGESSTANDARD DOSE: 2.0 - 3.0 Inclu sun: PROPHYLAXIS for venous thrombosis, systemic embolization; TREATMENT for santo ous thrombosis and/or pulmonary embolus.HIGH RISK: Target INR is 2.5-3.5 for pat ients with mechanical heart valves.POCT-GLUCOSE [id number] 23:53:00* Test Item Value Reference Range Comments POC-GLUCOSE METER (BEAKER) (test smgm=1964) 206 mg/dL 70-110 TESTED AT [facility] [address] [address] ALBUMIN, BODY [id number] 20:14:00* Test Item Value Reference Range Comments ALBUMIN FLUID (BEAKER) (test jphu=899) 0.4 gm/dL Reference Range: No Normals Assay performance has not been validated for this type of specimen.PROTEIN, BODY [id number] 20:14:00* Test Item Value Reference Range Comments PROTEIN FLUID (BEAKER) (test bwer=052) 0.9 g/dL Absence of reference range indicates that normals have not been defined.Assay pe rformance has not been validated for this type of specimen.BODY FLUID CELL COUNT WITH [id number] 20:13:00* Test Item Value Reference Range Comments APPEARANCE FLUID (BEAKER) (test bonu=135) Slightly Hazy Clear COLOR FLUID (BEAKER) (test sbuy=709) Yellow Colorless, Straw RBC FLUID (BEAKER) (test lqnc=854) 650 /cu mm <=1 ADJUSTED WBC FLUID (BEAKER) (test vpca=4239) 700 /cu mm <=5 LINING CELLS (BEAKER) (test qnrf=3710) 0 /cu mm <=1 NEUTROPHILS FLUID (BEAKER) (test mqjw=7142) 58 % LYMPHS FLUID (BEAKER) (test ydgc=241) 6 % MONO/MACROPHAGE FLUID (BEAKER) (test wvau=935) 36 % EOSINOPHILS FLUID (BEAKER) (test ztvw=660) 0 % BASO FLUID (BEAKER) (test emci=427) 0 % CONTAINER BODY FLUID (BEAKER) (test ldun=1643) EDTA Tube U/S, [id number] 13:34:00Reason for exam:->r/o SBPFINAL REPORT Paracentesis dated 04/24/2018 Procedure: Ultrasound- guided paracentesis. Preprocedure diagnosis: Ascites Postprocedure diagnosis: Ascites Conscious sedation: None. Radiologist: Oli Engel M.D. Turner And Former Automatic: None Anesthesia: 1% Xylocaine mixed with sodium bicarbonate local anesthesia. Technique: After obtaining informed consent, ultrasound-guided paracentesis was performed under usual sterile technique. Using a 5 lao drainage catheter, pu ncture was made in the right lower quadrant abdomen. Approximately 10,300 cc of serous fluid was removed. Patient tolerated the procedure well without complicat ion. Complication: None Graft/Implant: None Estimated Blood Loss: None Impressio n: Ultrasound-guided paracentesis. Abdominal ultrasound dated 04/24/2018 Commen t: Real-time transabdominal ultrasound of the right upper quadrant abdomen was performed. Liver is enlarged and measures 20 cm in length. The echogenicity of t he liver is heterogeneous. A large complex cystic lesion seen in the liver measu ring 19.3 x 19 26 x 18.4 cm. Gallbladder is contracted. No gallstone is present. No biliary dilatation is seen. Common bile duct measures 3 mm in diameter. Main portal vein measures 10 mm in diameter. Pancreas is suboptimally visualized. R ight kidney measures 12.7 x 7.5 x 7.4 cm. Echogenicity of the right kidney is normal. Trace ascites is present in the abdomen. Abdominal aorta is normal in c aliber. IVC and Hepatic veins are patent. Impression: 1. Large liver cystic les ion.2. Trace ascites.3. Incomplete visualization of the pancreas. Signed: Oli Engel MDReport Verified Date/Time: 04/24/2018 13:34:03 Reading Location: [facility] B1 [id number] Ultrasound Reading Room U/S, ABDOMINAL, [id number] 13:34:00Abdomen limited area? Add comment if clarification is needed.->Right upper quadrantReason for exam:->eval liver for mass, h/o cirrhosisFINAL REPORT Paracentesis dated 04/24/2018 Procedure: Ultrasound-guided paracentesis. Preprocedure diagnosis: Ascites Postprocedure diagnosis: Ascites Conscious sedation: None. Radiologist: Oli Engel M.D. Turner And Former Automatic: None Anesthesia: 1% Xylocaine mixed with sodium bicarbonate local anesthesia. Technique: After obtaining informed consent, ultrasound-guided paracentesis was performed under usual sterile technique. Using a 5 lao drainage catheter, puncture was made in the right lower quadrant abdomen. Approximately 10,300 cc of serous fluid was removed. Patient tolerated the procedure well without complication. Complication: None Graft/Implant: None Estimated Blood Loss: None Impression: Ultrasound-guided paracentesis. Abdominal ultrasound dated 04/24/2018 Comment: Real-time transabdominal ultrasound of the right upper quadrant abdomen was performed. Liver is enlarged and measures 20 cm in length. The echogenicity of t he liver is heterogeneous. A large complex cystic lesion seen in the liver measu ring 19.3 x 19 26 x 18.4 cm. Gallbladder is contracted. No gallstone is present. No biliary dilatation is seen. Common bile duct measures 3 mm in diameter. Main portal vein measures 10 mm in diameter. Pancreas is suboptimally visualized. R ight kidney measures 12.7 x 7.5 x 7.4 cm. Echogenicity of the right kidney is normal. Trace ascites is present in the abdomen. Abdominal aorta is normal in c aliber. IVC and Hepatic veins are patent. Impression: 1. Large liver cystic les ion.2. Trace ascites.3. Incomplete visualization of the pancreas. Signed: Oli Engel MDReport Verified Date/Time: 04/24/2018 13:34:03 Reading Location: [address] Ultrasound Reading Room -GLUCOSE [id number] 12:43:00* Test Item Value Reference Range Comments POC-GLUCOSE METER (BEAKER) (test ysmk=2634) 162 mg/dL 70-110 TESTED AT [facility] [address] [place] [address] CBC W/PLT COUNT & AUTO [id number] 11:55:00* Test Item Value Reference Range Comments WHITE BLOOD CELL COUNT (BEAKER) (test osfr=208) 24.7 K/ L 3.5-10.5 RED BLOOD CELL COUNT (BEAKER) (test kzqi=188) 3.37 M/ L 4.63-6.08 HEMOGLOBIN (BEAKER) (test rbgn=306) 10.9 GM/DL 13.7-17.5 HEMATOCRIT (BEAKER) (test relx=885) 32.0 % 40.1-51.0 MEAN CORPUSCULAR VOLUME (BEAKER) (test yfup=824) 95.0 fL 79.0-92.2 MEAN CORPUSCULAR HEMOGLOBIN (BEAKER) (test lxmb=043) 32.3 pg 25.7-32.2 MEAN CORPUSCULAR HEMOGLOBIN CONC (BEAKER) (test zera=262) 34.1 GM/DL 32.3-36.5 RED CELL DISTRIBUTION WIDTH (BEAKER) (test iwyv=727) 14.6 % 11.6-14.4 PLATELET COUNT (BEAKER) (test xeep=312) 179 K/CU MM 150-450 MEAN PLATELET VOLUME (BEAKER) (test yctq=455) 10.2 fL 9.4-12.4 NUCLEATED RED BLOOD CELLS (BEAKER) (test oqkp=288) 0 /100 WBC 0-0 (CELLAVISION MANUAL DIFF)2018-04-24 11:55:00* Test Item Value Reference Range Comments NEUTROPHILS - REL (CELLAVISION)(BEAKER) (test pahl=5066) 95 % LYMPHOCYTES - REL (CELLAVISION)(BEAKER) (test rhjp=0555) 1 % MONOCYTES - REL (CELLAVISION)(BEAKER) (test irww=1376) 2 % MYELOCYTES - REL (CELLAVISION)(BEAKER) (test zhzk=9248) 1 % 0-0 BANDS - REL (CELLAVISION)(BEAKER) (test scnu=2829) 1 % 0-10 NEUTROPHILS - ABS (CELLAVISION)(BEAKER) (test onvc=5484) 23.47 K/ul 1.78-5.38 LYMPHOCYTES - ABS (CELLAVISION)(BEAKER) (test czum=9773) 0.25 K/ul 1.32-3.57 MONOCYTES - ABS (CELLAVISION)(BEAKER) (test sehh=8255) 0.49 K/uL 0.30-0.82 MYELOCYTES-ABS (CELLAVISION)(BEAKER) (test jxuz=0981) 0.25 K/uL 0.00-0.00 BANDS - ABS (CELLAVISION)(BEAKER) (test cuej=1404) 0.25 K/uL 0.00-0.80 TOTAL COUNTED (BEAKER) (test kffq=2122) 100 SMUDGE CELLS (BEAKER) (test vcwy=6055) Present GIANT PLATELETS (BEAKER) (test qoso=757) Present ANISOCYTOSIS (BEAKER) (test smdo=255) 2+ moderate MACROCYTES (BEAKER) (test lgis=695) 2+ moderate POIKILOCYTES (BEAKER) (test yevy=287) 3+ many SERGIO CELLS (BEAKER) (test qmdi=717) 3+ many PLATELET CONCENTRATION (CELLAVISION)(BEAKER) (test affq=4936) Adequate Received comment: User comments: Slide comments: HEMOGLOBIN [id number] 10:06:00* Test Item Value Reference Range Comments HEMOGLOBIN A1C (BEAKER) (test yexb=130) 5.7 % 4.3-6.1 POCT-GLUCOSE [id number] 08:34:00* Test Item Value Reference Range Comments POC-GLUCOSE METER (BEAKER) (test vmtg=6888) 158 mg/dL 70-110 TESTED AT [facility] [address] [address] HEPATITIS PANEL, [id number] 08:14:00* Test Item Value Reference Range Comments HEPATITIS A IGM ANTIBODY (BEAKER) (test uwmd=107) Nonreactive Nonreactive HEPATITIS B CORE IGM ANTIBODY (BEAKER) (test ldyt=348) Nonreactive Nonreactive HEPATITIS C ANTIBODY (BEAKER) (test xzqj=879) Nonreactive Nonreactive HEPATITIS B SURFACE ANTIGEN (2) (BEAKER) (test qbst=2064) Reactive Nonreactive ALPHA FETOPROTEIN (AFP), TUMOR [id number] 07:35:00* Test Item Value Reference Range Comments ALPHA-FETOPROTEIN (BEAKER) (test mrvs=4008) 3.1 ng/mL <10.0 PROTHROMBIN TIME/[id number] 07:06:00* Test Item Value Reference Range Comments PROTIME (BEAKER) (test phre=868) 24.2 seconds 11.7-14.7 INR (BEAKER) (test cdzf=223) 2.2 <=5.9 RECOMMENDED COUMADIN/WARFARIN INR THERAPY RANGESSTANDARD DOSE: 2.0 - 3.0 Inclu sun: PROPHYLAXIS for venous thrombosis, systemic embolization; TREATMENT for santo ous thrombosis and/or pulmonary embolus.HIGH RISK: Target INR is 2.5-3.5 for pat ients with mechanical heart valves.BASIC METABOLIC [id number] 07:04:00* Test Item Value Reference Range Comments SODIUM (BEAKER) (test jand=243) 122 meq/L 136-145 POTASSIUM (BEAKER) (test ijwa=930) 4.6 meq/L 3.5-5.1 CHLORIDE (BEAKER) (test etlg=901) 95 meq/L 98-107 CO2 (BEAKER) (test ndln=992) 15 meq/L 22-29 BLOOD UREA NITROGEN (BEAKER) (test hxev=046) 85 mg/dL 7-21 CREATININE (BEAKER) (test dslh=743) 1.51 mg/dL 0.57-1.25 GLUCOSE RANDOM (BEAKER) (test pnno=175) 143 mg/dL 70-105 CALCIUM (BEAKER) (test qlmo=708) 8.3 mg/dL 8.4-10.2 EGFR (BEAKER) (test qrno=4238) 49 mL/min/1.73 sq m ESTIMATED GFR IS NOT ACCURATE CREATININE CLEARANCE IN PREDICTING GLOMERULAR FILTRATION RATE. ESTIMATED GFR IS NOT APPLICABLE FOR DIALYSIS PATIENTS. Specimen markedly ictericHEPATIC FUNCTION [id number] 07:04:00* Test Item Value Reference Range Comments TOTAL PROTEIN (BEAKER) (test ntuo=477) 6.2 gm/dL 6.0-8.3 ALBUMIN (BEAKER) (test fbce=5521) 2.4 g/dL 3.5-5.0 BILIRUBIN TOTAL (BEAKER) (test cavs=212) 18.1 mg/dL 0.2-1.2 BILIRUBIN DIRECT (BEAKER) (test igfy=060) 12.1 mg/dL 0.1-0.5 ALKALINE PHOSPHATASE (BEAKER) (test yway=667) 237 U/L 40-150 AST (SGOT) (BEAKER) (test ygmi=757) 62 U/L 5-34 ALT (SGPT) (BEAKER) (test ypix=913) 29 U/L 6-55 Specimen markedly ictericPOCT-GLUCOSE [id number] 00:00:00* Test Item Value Reference Range Comments POC-GLUCOSE METER (BEAKER) (test ghss=3116) 159 mg/dL 70-110 TESTED AT [facility] [address] [address] PLEURAL [id number] 13:49:00 RUN DATE: 04/10/18 [employer] PAGE 1 RUN TIME: 1350 Specimen Inqui ry RUN USER: INTERFACE PATIENT: MONI MARIE ACCT #: [id number] LOC: [facility] U #: [id number] AGE/SX: 52/M ROOM: [facility] RE04/09/18REG DR: Elsa Hinton MD : 69 BED: A DIS: STATUS: ADM IN TLOC: SPEC #: [id number] RECD: 04/08/18 STATUS: RAJESH [facility] #: [id number] EDVIN: 04/08/18 DR: Elsa Hinton MD ENTERED: 04/08/18 SP TYPE: PLEURAL FL OTHR DR: Filipe Mccarthy MD, Andrew S DO Nassif, George M MDORDERED: GROSS COPIES TO: Elsa Hinton MD [address] [facility] [address] [place] [address] Filipe Mccarthy MD [address] [place], [place] [id number] Stephanie Weiner DO [address] [place], [place] [id number] Trey Edgar MD [address] [facility] [address] [place] [id number] PROCEDURES: GROSS (04/09/18- 48) TISSUES: PLEURAL FLUID, NOS - 40 ML YELLOW CLINICAL HISTOR Y COLLECTION DATE: 04/08/18 HISTORY HEPATIC HYDRO THORAX CO MMENT Two concentrated smears, a cytospin and cell block are prepared from the fluid. CONTINUED ON NEXT PAGE -------- ----RUN DATE: 04/10/18 [facility] PAGE 2 RUN TIME: 1350 Specimen Inquiry RUN USER: INTERFACE SPEC #: [id number] PATIENT: MONI MARIE #[id number] (Continued) FINAL DIAGNOSIS Ple ural fluid, cytology: NEGATIVE FOR MALIGNANCY FEW ACUTE AND CHRONI C INFLAMMATORY CELLS, MACROPHAGES AND MESOTHELIAL-TYPE CELLS RRB/rosaura D [id number], [id number] MACROSCOPIC The specimen consists of 40 mL of yellow fluid to be concentrated and processed for cytologic evaluation. A cell block will be prepared. GROSS PERFORMED AT [facility] [address] [place] [phone] (U) MICROSCOPIC MICROSCOPIC PERFORMED AT [facility] All of the stains, including any controls performed, stain appropriately. [facility] [address] [place] [phone] (Q) PERFORMING SITE Diagnosis performed at: [facility], [place] [address] [place] [address] [phone] Signed SIGNATURE ON FILE Avery Lopez 04/10/18 1349 NIMCO D OF REPORT
--- NOTE | 2019-05-28 21:31 | NUR ---
PARACENTESIS EVERY SUNDAY/SUNDAY Addendum: 05/28/19 at 2132 by KACEY 5L TAKEN OFF EVERY SUNDAY/SUNDAY
[2019-05-28 22:00] LABS: BASOPHILS % 0.3 % (0.0-1.0); EOSINOPHILS # (AUTO) 0.1 (0.0-0.4); EOSINOPHILS % 1.4 % (0.0-6.0); LYMPHOCYTES # (AUTO) 0.2 (1.0-3.2); LYMPHOCYTES % 5.5 % (18.0-39.1); MEAN CORPUSCULAR HEMOGLOBIN 31.7 pg (28-32); MEAN CORPUSCULAR HGB CONC 31.9 g/dL (31-35); MEAN CORPUSCULAR VOLUME 99.3 fL (81-99); MONOCYTES # (AUTO) 0.2 (0.2-0.8); MONOCYTES % 6.7 % (4.4-11.3); NEUTROPHILS % 85.5 % (38.7-80.0); RED BLOOD COUNT 1.45 x10e6/uL (4.3-5.7)
[2019-05-28 22:03] LABS: PLATELET COUNT 63 x10e3/uL (140-360)
[2019-05-28 22:04] LABS: HEMATOCRIT 14.4 % (38.2-49.6); HEMOGLOBIN 4.6 g/dL (14.0-18.0)
--- NOTE | 2019-05-28 22:04 | Diagnostic Imaging Report ---
EXAMINATION: CHEST SINGLE (PORTABLE) INDICATION: ^CONFUSION ^[id number] ^5 ^Y COMPARISON: None FINDINGS: AP view TUBES and LINES: None. LUNGS: Limited by body habitus and low lung volumes. Mild central vascular examination. Right basilar subsegmental atelectasis. PLEURA: No visible pneumothorax. Suspected trace right pleural effusion. HEART AND MEDIASTINUM: The cardiac silhouette is mildly enlarged, accentuated by technique and low lung volumes. BONES AND SOFT TISSUES: No acute osseous lesion. Soft tissues are unremarkable. UPPER ABDOMEN: No free air under the diaphragm. IMPRESSION: Suspected trace right pleural effusion and right basilar subsegmental atelectasis. Mild central vascular congestion. Signed by: Dr. Gaetano Singletary MD on 05/28/2019 10:01 PM
[2019-05-28 22:07] LABS: INR 1.24; PROTHROMBIN TIME 16.2 seconds (11.9-14.5)
[2019-05-28 22:17] LABS: ALBUMIN 2.8 g/dL (3.5-5.0); CALCIUM 7.7 mg/dL (8.4-10.2); CREATININE, SERUM 2.66 mg/dL (0.72-1.25)
[2019-05-28 22:27] LABS: AMYLASE 32 U/L (25-125); LIPASE 12 U/L (8-78)
[2019-05-28] MEDS ORDERED: OCTREOTIDE ACETATE 500 MCG in SODIUM CHLORIDE 0.9% 250ML 250 ML IV SCH (23:00)
[2019-05-28] MEDS ORDERED: SODIUM CHLORIDE 0.9% 250ML 250 ML IV ONE (23:00)
[2019-05-28] MEDS ORDERED: FUROSEMIDE INJ 10 MG/ML 2 ML VIAL IV PRN (23:00)
[2019-05-28] MEDS ORDERED: CEFTRIAXONE SOD 1 GM/NS 50 ML 50 ML IV ONE (23:00)
--- NOTE | 2019-05-28 23:30 | NUR ---
2ND IV TO THE LEFT EJ.
--- NOTE | 2019-05-28 23:41 | NUR ---
CONSENT SIGNED AND PLACED ON PT'S CHART. PT'S STATED THAT THE LAST TIME HE REC'D BLOOD; HIS BP DROPPED AND THEY HAD TO STOP THE TRANSFUSION. DR. KANG/CONDUCTOR/ENGINEER.
[2019-05-29] MEDS ORDERED: DIPHENHYDRAMINE HCL INJ 50 MG/ML VIAL IV ONE (00:30)
--- NOTE | 2019-05-29 00:31 | NUR ---
REPORT GIVEN TO JOSE KAUR
[2019-05-29] MEDS ORDERED: SODIUM CHLORIDE 0.9% 250ML 250 ML ONE ×2 (00:55→03:07)
--- NOTE | 2019-05-29 02:49 | NUR ---
[facility] CONTACTED AT THIS TIME. 45 MINUTE ETA (0473).
[2019-05-29 04:17] VITALS: BP 134/78
== END 2019-05-29 04:15 | disposition other institution (70) ==
LOC: ER 20:58
DX: R41.82 Altered mental status, unspecified (principal); K72.10 Chronic hepatic failure without coma; D63.1 Anemia in chronic kidney disease; K74.69 Other cirrhosis of liver
CPT/HCPCS: 36415; 71045; 80053; 82140; 82150; 83690; 85025; 85610; 85730; 86850; 86900; 86920; 87040; 99284; J0696; J1200; J1940; J2353; J7050; P9016

== ENCOUNTER 2019-08-21 19:49 | Emergency (ER) | payer OTHER ==
[~2019-08-21] VITALS: Ht 188 cm; Wt 116.1 kg
[2019-08-21 20:39] LABS: BASOPHILS % 0.3 % (0.0-1.0); EOSINOPHILS % 0.3 % (0.0-6.0); HEMATOCRIT 15.5 % (38.2-49.6); LYMPHOCYTES # (AUTO) 0.2 (1.0-3.2); LYMPHOCYTES % 5.3 % (18.0-39.1); MEAN CORPUSCULAR HEMOGLOBIN 33.3 pg (28-32); MEAN CORPUSCULAR HGB CONC 34.2 g/dL (31-35); MEAN CORPUSCULAR VOLUME 97.5 fL (81-99); MONOCYTES # (AUTO) 0.2 (0.2-0.8); MONOCYTES % 6.8 % (4.4-11.3); NEUTROPHILS # (AUTO) 2.9 (2.1-6.9); NEUTROPHILS % 86.1 % (38.7-80.0); PLATELET COUNT 92 x10e3/uL (140-360); RED BLOOD COUNT 1.59 x10e6/uL (4.3-5.7); RED CELL DISTRIBUTION WIDTH 18.1 % (11.7-14.4)
[2019-08-21 20:43] LABS: HEMOGLOBIN 5.3 g/dL (14.0-18.0)
[2019-08-21 20:47] LABS: INR 1.22; PARTIAL THROMBOPLASTIN TIME 22.6 seconds (23.8-35.5); PROTHROMBIN TIME 16.2 seconds (11.9-14.5)
[2019-08-21] MEDS ORDERED: PANTOPRAZOLE 40 MG 10ML VIAL IV ONE (21:00)
[2019-08-21 21:02] LABS: ALBUMIN 2.9 g/dL (3.5-5.0); ALBUMIN/GLOBULIN RATIO 1.1 (0.8-2.0); ANION GAP 21.4 mmol/L (8-16); CALCIUM 7.9 mg/dL (8.4-10.2); CREATININE, SERUM 3.11 mg/dL (0.72-1.25); POTASSIUM 4.4 mmol/L (3.5-5.1)
--- NOTE | 2019-08-21 21:13 | Diagnostic Imaging Report ---
Examination: Single AP view of the chest. COMPARISON: 05/28/2019 INDICATION: Weakness DISCUSSION: The lungs are well-inflated. Linear opacity in the right lung base compatible with subsegmental atelectasis. Blunting of the right lateral costophrenic sulcus may reflect a trace effusion. No consolidations. Cardiomediastinal contour and pulmonary vasculature are within normal limits when accounting for AP technique. No acute osseous abnormalities. IMPRESSION: Trace right pleural effusion or focal pleural thickening with adjacent linear opacity likely subsegmental atelectasis. Signed by: Dr. Piyush Marcelino M.D. on 08/21/2019 9:11 PM
[2019-08-21] MEDS ORDERED: SODIUM CHLORIDE 0.9% 250ML 250 ML IV ONE (21:45)
[2019-08-22 02:00] VITALS: BP 125/73
--- NOTE | 2019-08-22 03:25 | NUR ---
PT REFUSING TO STAY ANY LONGER, STATING HE NEEDS TO LEAVE. PT INFORMED THAT HIS HGB IS STILL LOW AND PT STATED HE NEEDS TO GET TO HIS APPOINTMENT AT [facility] FOR THORACENTESIS. AWARE.
[2019-08-22 03:55] LABS: HEMATOCRIT 18.3 % (38.2-49.6); HEMOGLOBIN 6.2 g/dL (14.0-18.0)
--- NOTE | 2019-08-22 05:31 | NUR ---
DR COOK NOTIFIED OF 6.2 HGB 18.3 HCT.
== END 2019-08-22 03:30 | disposition home or self-care (01) ==
LOC: ER 19:49
DX: D63.1 Anemia in chronic kidney disease (principal); I10 Essential (primary) hypertension; E11.9 Type 2 diabetes mellitus without complications; B19.10 Unspecified viral hepatitis B without hepatic coma
CPT/HCPCS: 36415; 71045; 80053; 82140; 85014; 85018; 85025; 85610; 85730; 86850; 86900; 86920; 99284; J7050; P9016

== ENCOUNTER 2019-09-09 12:18 | Emergency (ER) | payer OTHER ==
[~2019-09-09] VITALS: Ht 188 cm; Wt 90.7 kg
--- NOTE | 2019-09-09 12:36 | NUR ---
called [facility] for pt to return home per md/spice blender
[2019-09-09 13:19] LABS: BASOPHILS % 0.4 % (0.0-1.0); EOSINOPHILS # (AUTO) 0.1 (0.0-0.4); EOSINOPHILS % 3.4 % (0.0-6.0); HEMATOCRIT 23.2 % (38.2-49.6); HEMOGLOBIN 7.8 g/dL (14.0-18.0); LYMPHOCYTES # (AUTO) 0.1 (1.0-3.2); LYMPHOCYTES % 5.2 % (18.0-39.1); MEAN CORPUSCULAR HEMOGLOBIN 31.5 pg (28-32); MEAN CORPUSCULAR HGB CONC 33.6 g/dL (31-35); MEAN CORPUSCULAR VOLUME 93.5 fL (81-99); MONOCYTES # (AUTO) 0.1 (0.2-0.8); MONOCYTES % 5.2 % (4.4-11.3); NEUTROPHILS # (AUTO) 2.3 (2.1-6.9); NEUTROPHILS % 85.1 % (38.7-80.0); PLATELET COUNT 65 x10e3/uL (140-360); RED BLOOD COUNT 2.48 x10e6/uL (4.3-5.7); RED CELL DISTRIBUTION WIDTH 17.5 % (11.7-14.4)
[2019-09-09 13:31] LABS: INR 0.99; PROTHROMBIN TIME 13.7 seconds (11.9-14.5)
--- NOTE | 2019-09-09 13:33 | NUR ---
client walked out of ER and into parking lot stating that he wanted to go home, I engaged the client and had him have a seat in a wheel chair and he complied. client then began to state that he wanted to go home. client is alert and oriented to person, and place, but states that we are in July and that he just wants to go home and .
[2019-09-09] MEDS ORDERED: LORAZEPAM INJ 2 MG/ML VIAL ONE (14:15)
[2019-09-09] MEDS ORDERED: DIPHENHYDRAMINE HCL INJ 50 MG/ML VIAL ONE (14:15)
== END 2019-09-09 15:10 | disposition home or self-care (01) ==
LOC: ER 12:18
DX: R41.82 Altered mental status, unspecified (principal); K72.10 Chronic hepatic failure without coma; I10 Essential (primary) hypertension; E11.9 Type 2 diabetes mellitus without complications; Z87.891 Personal history of nicotine dependence
CPT/HCPCS: 36415; 82140; 85025; 85610; 93041; 99284; J1200; J2060

== ENCOUNTER 2019-10-13 12:47 | Inpatient (IN) | payer OTHER ==
[~2019-10-13] VITALS: Ht 188 cm; Wt 154.9 kg
[2019-10-13 13:15] LABS: BASOPHILS % 0.5 % (0.0-1.0); EOSINOPHILS # (AUTO) 0.3 (0.0-0.4); EOSINOPHILS % 5.7 % (0.0-6.0); HEMATOCRIT 22.6 % (38.2-49.6); HEMOGLOBIN 7.3 g/dL (14.0-18.0); LYMPHOCYTES # (AUTO) 0.3 (1.0-3.2); LYMPHOCYTES % 5.2 % (18.0-39.1); MEAN CORPUSCULAR HEMOGLOBIN 31.5 pg (28-32); MEAN CORPUSCULAR HGB CONC 32.3 g/dL (31-35); MEAN CORPUSCULAR VOLUME 97.4 fL (81-99); MONOCYTES # (AUTO) 0.3 (0.2-0.8); MONOCYTES % 5.3 % (4.4-11.3); NEUTROPHILS # (AUTO) 4.8 (2.1-6.9); NEUTROPHILS % 82.4 % (38.7-80.0); PLATELET COUNT 109 x10e3/uL (140-360); RED BLOOD COUNT 2.32 x10e6/uL (4.3-5.7); RED CELL DISTRIBUTION WIDTH 17.6 % (11.7-14.4)
[2019-10-13 13:30] LABS: INR 1.16; PROTHROMBIN TIME 15.6 seconds (11.9-14.5)
[2019-10-13 13:31] LABS: PARTIAL THROMBOPLASTIN TIME 32.4 seconds (23.8-35.5)
[2019-10-13 13:37] LABS: ALBUMIN 2.1 g/dL (3.5-5.0); ALBUMIN/GLOBULIN RATIO 0.4 (0.8-2.0); ANION GAP 11.7 mmol/L (8-16); CALCIUM 7.8 mg/dL (8.4-10.2); CREATININE, SERUM 2.35 mg/dL (0.72-1.25); MAGNESIUM 2.2 MG/DL (1.3-2.1); POTASSIUM 4.7 mmol/L (3.5-5.1)
[2019-10-13 13:43] LABS: CREATINE KINASE MB 2.8 ng/mL (0-5.0)
--- NOTE | 2019-10-13 14:23 | Diagnostic Imaging Report ---
EXAMINATION: CHEST SINGLE (PORTABLE) INDICATION: Shortness of breath COMPARISON: Chest radiograph 08/21/2019 FINDINGS: LINES/TUBES:None LUNGS:The lung volumes are very low. Mild bibasilar patchy opacities. PLEURA:No pleural effusion or pneumothorax. MEDIASTINUM:Cardiomediastinal silhouette appears enlarged, likely related to low lung volumes and portable technique. BONES/SOFT TISSUES:No acute osseous injury. ABDOMEN:No free air under the diaphragm. IMPRESSION: Very low lung volumes. Bibasilar patchy opacities, most likely subsegmental atelectasis. Signed by: Silvana Padgett MD on 10/13/2019 2:20 PM
[2019-10-13] MEDS ORDERED: ALBUMIN 25% 12.5GM 50ML 0 ML IV ONE (14:55)
[2019-10-13] MEDS ORDERED: ONDANSETRON HCL INJ 2MG/ML 2ML 2 MG/ML VIAL IV PRN (16:00)
[2019-10-13] MEDS ORDERED: DEXTROSE 50% SYRINGE 50 ML IV PRN (16:00)
[2019-10-13] MEDS ORDERED: SODIUM CHLORIDE 0.9% 250ML 250 ML IV ONE (16:00)
[2019-10-13] MEDS: INSULIN LISPRO 100 UNIT/1 ML 3ML VIAL SQ SCH ×2 (16:30→21:09)
--- NOTE | 2019-10-13 16:53 | Diagnostic Imaging Report ---
PROCEDURE: Ultrasound-guided paracentesis Procedural Personnel Attending physician(s): Silvana Padgett MD Pre-procedure diagnosis: Ascites Post-procedure diagnosis: Unchanged Indication: Ascites with pain or pressure symptoms Additional clinical history: None Complications: No immediate complications. IMPRESSION: Ultras[place] [address] mL of serous fluid. Plan: Resume care by clinical team. PROCEDURE SUMMARY: - Limited abdominal ultrasound - Ultrasound-guided paracentesis - Additional procedure(s): None PROCEDURE DETAILS: Pre-procedure Consent: Informed consent for the procedure including risks, benefits and alternatives was obtained and time-out was performed prior to the procedure. Preparation: The site was prepared and draped using maximal sterile barrier technique including cutaneous antisepsis. Anesthesia/sedation Level of anesthesia/sedation: None Initial abdominal ultrasound Initial abdominal ultrasound was performed. Findings: Large ascites. A safe window for paracentesis was identified. Paracentesis Local anesthesia was administered. The peritoneal cavity was accessed and fluid return confirmed position. Ascites was drained. The catheter was then removed, and a sterile bandage was applied. Paracentesis access technique: Real-time ultrasound guidance. Catheter placed: 5Fr Yueh Post-drainage ultrasound: Moderate ascites Additional Details Additional description of procedure: None Equipment details: None Specimens removed: Abdominal fluid Estimated blood loss (mL): Minimal (<10cc) Standardized report: [email or web address] Attestation Signer name: Silvana Padgett MD I attest that I was present for the entire procedure. I reviewed the stored images and agree with the report as written. Signed by: Silvana Padgett MD on 10/13/2019 4:49 PM
[2019-10-13 17:20] VITALS: BP 112/71
[2019-10-13 19:51] LABS: CREATINE KINASE MB 3.3 ng/mL (0-5.0)
[2019-10-13 20:00] VITALS: BP 120/73
[2019-10-13 21:00] VITALS: BP 120/73
[2019-10-14] VITALS (7 sets, daily range): BP systolic 108–122; BP diastolic 58–101
[2019-10-14 05:51] LABS: ALBUMIN 2.1 g/dL (3.5-5.0); ALBUMIN/GLOBULIN RATIO 0.6 (0.8-2.0); ANION GAP 9.2 mmol/L (8-16); CALCIUM 7.5 mg/dL (8.4-10.2); CREATININE, SERUM 2.23 mg/dL (0.72-1.25); POTASSIUM 4.2 mmol/L (3.5-5.1)
[2019-10-14 06:16] LABS: CREATINE KINASE 47 IU/L (30-200)
[2019-10-14 06:44] LABS: BASOPHILS % 0.5 % (0.0-1.0); EOSINOPHILS # (AUTO) 0.3 (0.0-0.4); EOSINOPHILS % 6.4 % (0.0-6.0); HEMATOCRIT 20.9 % (38.2-49.6); LYMPHOCYTES # (AUTO) 0.3 (1.0-3.2); LYMPHOCYTES % 7.1 % (18.0-39.1); MEAN CORPUSCULAR HGB CONC 31.6 g/dL (31-35); MEAN CORPUSCULAR VOLUME 98.1 fL (81-99); MONOCYTES # (AUTO) 0.3 (0.2-0.8); MONOCYTES % 6.9 % (4.4-11.3); NEUTROPHILS # (AUTO) 3.2 (2.1-6.9); NEUTROPHILS % 78.6 % (38.7-80.0); PLATELET COUNT 76 x10e3/uL (140-360); RED BLOOD COUNT 2.13 x10e6/uL (4.3-5.7); RED CELL DISTRIBUTION WIDTH 17.1 % (11.7-14.4)
[2019-10-14 06:48] LABS: HEMOGLOBIN 6.6 g/dL (14.0-18.0)
[2019-10-14] MEDS: INSULIN LISPRO 100 UNIT/1 ML 3ML VIAL SQ SCH ×4 (07:30→21:40)
[2019-10-14] MEDS ORDERED: SODIUM CHLORIDE 0.9% 250ML 250 ML ONE (11:35)
[2019-10-14] MEDS: FUROSEMIDE INJ 10 MG/ML 2 ML VIAL IV PRN (17:45)
[2019-10-15] VITALS (7 sets, daily range): BP systolic 118–141; BP diastolic 71–93
[2019-10-15] MEDS: FUROSEMIDE INJ 10 MG/ML 2 ML VIAL IV PRN (02:55)
[2019-10-15 05:35] LABS: BASOPHILS % 0.7 % (0.0-1.0); EOSINOPHILS # (AUTO) 0.3 (0.0-0.4); EOSINOPHILS % 7.3 % (0.0-6.0); HEMATOCRIT 23.6 % (38.2-49.6); HEMOGLOBIN 7.9 g/dL (14.0-18.0); LYMPHOCYTES # (AUTO) 0.3 (1.0-3.2); LYMPHOCYTES % 6.6 % (18.0-39.1); MEAN CORPUSCULAR HEMOGLOBIN 31.3 pg (28-32); MEAN CORPUSCULAR HGB CONC 33.5 g/dL (31-35); MEAN CORPUSCULAR VOLUME 93.7 fL (81-99); MONOCYTES # (AUTO) 0.3 (0.2-0.8); MONOCYTES % 6.4 % (4.4-11.3); NEUTROPHILS # (AUTO) 3.6 (2.1-6.9); NEUTROPHILS % 78.3 % (38.7-80.0); PLATELET COUNT 84 x10e3/uL (140-360); RED BLOOD COUNT 2.52 x10e6/uL (4.3-5.7); RED CELL DISTRIBUTION WIDTH 17.4 % (11.7-14.4)
[2019-10-15] MEDS: INSULIN LISPRO 100 UNIT/1 ML 3ML VIAL SQ SCH ×4 (11:18→21:00)
[2019-10-15] MEDS ORDERED: LACTULOSE20 GM/30 M PO (18:29)
[2019-10-15] MEDS ORDERED: OXYCONTIN10 MG PO (18:29)
[2019-10-15] MEDS: LACTULOSE SYRUP 20 GM/30 ML UDC PO SCH (19:56)
[2019-10-15] MEDS: OXYCODONE HCL 10 MG TAB CR PO SCH (21:24)
[2019-10-16] VITALS (9 sets, daily range): BP systolic 120–138; BP diastolic 59–87
[2019-10-16] MEDS: OXYCODONE HCL 10 MG TAB CR PO SCH ×3 (06:15→22:25)
[2019-10-16] MEDS: LACTULOSE SYRUP 20 GM/30 ML UDC PO SCH ×3 (09:00→21:42)
[2019-10-16] MEDS: INSULIN LISPRO 100 UNIT/1 ML 3ML VIAL SQ SCH ×4 (09:03→21:41)
[2019-10-16] MEDS ORDERED: ONDANSETRON HCL 4 MG ORAL DISINTEGRATING TAB PO PRN (11:30)
[2019-10-16] MEDS ORDERED: ALBUMIN 25% 12.5GM 50ML 200 ML IV ONE (12:04)
[2019-10-16] MEDS ORDERED: ALBUMIN 25% 12.5GM 50ML 100 ML IV ONE (12:52)
--- NOTE | 2019-10-16 16:10 | Diagnostic Imaging Report ---
PROCEDURE: Ultrasound-guided paracentesis Procedural Personnel Attending physician(s): Silvana Padgett MD Pre-procedure diagnosis: Ascites Post-procedure diagnosis: Unchanged Indication: Ascites with pain or pressure symptoms Additional clinical history: None Complications: No immediate complications. IMPRESSION: Ultrasound-guided paracentesis with drainage of 14,400 mL of serous fluid. Plan: Resume care by clinical team. PROCEDURE SUMMARY: - Limited abdominal ultrasound - Ultrasound-guided paracentesis - Additional procedure(s): None PROCEDURE DETAILS: Pre-procedure Consent: Informed consent for the procedure including risks, benefits and alternatives was obtained and time-out was performed prior to the procedure. Preparation: The site was prepared and draped using maximal sterile barrier technique including cutaneous antisepsis. Anesthesia/sedation Level of anesthesia/sedation: None Initial abdominal ultrasound Initial abdominal ultrasound was performed. Findings: Large ascites. A safe window for paracentesis was identified. Paracentesis Local anesthesia was administered. The peritoneal cavity was accessed and fluid return confirmed position. Ascites was drained. The catheter was then removed, and a sterile bandage was applied. Paracentesis access technique: Real-time ultrasound guidance. Catheter placed: 5Fr Yueh Post-drainage ultrasound: Moderate ascites Additional Details Additional description of procedure: None Equipment details: None Specimens removed: Abdominal fluid Estimated blood loss (mL): Minimal (<10cc) Standardized report: [email or web address] Attestation Signer name: Silvana Padgett MD I attest that I was present for the entire procedure. I reviewed the stored images and agree with the report as written. Signed by: Silvana Padgett MD on 10/16/2019 4:06 PM
[2019-10-17 00:44] VITALS: BP 126/78
[2019-10-17 05:07] VITALS: BP 118/74
[2019-10-17] MEDS: OXYCODONE HCL 10 MG TAB CR PO SCH ×2 (07:25→15:07)
[2019-10-17 08:43] VITALS: BP 133/65
[2019-10-17 08:50] VITALS: BP 133/65
[2019-10-17] MEDS: LACTULOSE SYRUP 20 GM/30 ML UDC PO SCH ×2 (10:17→15:07)
[2019-10-17] MEDS: INSULIN LISPRO 100 UNIT/1 ML 3ML VIAL SQ SCH ×2 (11:16→11:38)
[2019-10-17 11:27] VITALS: BP 119/64
== END 2019-10-17 17:00 | disposition home or self-care (01) | DRG 433 ==
LOC: ER 12:47 → ERHOLD 15:56 → MED/SURG2 16:50 → OBSVTOIN 10-15 13:31
PROC: 0W9G3ZZ Drainage of Peritoneal Cavity, Percutaneous Approach (ICD-10-PCS; principal; 2019-10-13)
PROC: 0W9G3ZZ Drainage of Peritoneal Cavity, Percutaneous Approach (ICD-10-PCS; 2019-10-16)
PROC: 30233N1 Transfusion of Nonautologous Red Blood Cells into Peripheral Vein, Percutaneous Approach (ICD-10-PCS; 2019-10-16)
DX: K70.31 Alcoholic cirrhosis of liver with ascites (principal); D59.9 Acquired hemolytic anemia, unspecified; B18.2 Chronic viral hepatitis C; N18.3 Chronic kidney disease, stage 3 (moderate); Z87.442 Personal history of urinary calculi; N28.9 Disorder of kidney and ureter, unspecified; I12.9 Hypertensive chronic kidney disease with stage 1 through stage 4 chronic kidney disease, or unspecified chronic kidney disease; D50.0 Iron deficiency anemia secondary to blood loss (chronic); E11.22 Type 2 diabetes mellitus with diabetic chronic kidney disease
CPT/HCPCS: 36415; 49083; 71045; 74470; 80053; 82550; 82553; 82948; 83735; 83880; 84484; 85025; 85610; 85730; 86850; 86900; 86920; 93005; 97139; 99251; 99284; C1729; G0378; J1940; J7050; P9016; Q0162

== ENCOUNTER 2019-10-21 04:38 | Emergency (ER) | payer OTHER ==
[~2019-10-21] VITALS: Ht 188 cm; Wt 154.7 kg
[~2019-10-21 04:38] MED LIST: LACTULOSE20 GM/30 M PO; OXYCONTIN10 MG PO
--- NOTE | 2019-10-21 04:50 | NUR ---
Patient AAOx4, VSS. Obvious ascites with no SOB or chest pain. Once patient was place on ED Bed 9 he start demanding to lower AC, warm blanket, ice water & extra pillow even before being box shook patcher to the monitor. Dr Childress at bedside for pt evaluation. Will continue to monitor pt at this time.
[2019-10-21 05:01] LABS: BASOPHILS % 0.7 % (0.0-1.0); EOSINOPHILS # (AUTO) 0.4 (0.0-0.4); HEMOGLOBIN 7.8 g/dL (14.0-18.0); LYMPHOCYTES # (AUTO) 0.3 (1.0-3.2); LYMPHOCYTES % 5.2 % (18.0-39.1); MEAN CORPUSCULAR HEMOGLOBIN 31.2 pg (28-32); MEAN CORPUSCULAR HGB CONC 32.5 g/dL (31-35); MONOCYTES # (AUTO) 0.6 (0.2-0.8); MONOCYTES % 9.5 % (4.4-11.3); NEUTROPHILS # (AUTO) 4.6 (2.1-6.9); NEUTROPHILS % 77.1 % (38.7-80.0); PLATELET COUNT 101 x10e3/uL (140-360); RED CELL DISTRIBUTION WIDTH 16.7 % (11.7-14.4)
[2019-10-21 05:10] LABS: INR 1.12; PROTHROMBIN TIME 15.1 seconds (11.9-14.5)
[2019-10-21 05:11] LABS: PARTIAL THROMBOPLASTIN TIME 31.1 seconds (23.8-35.5)
[2019-10-21 05:19] LABS: ALBUMIN 2.1 g/dL (3.5-5.0); ALBUMIN/GLOBULIN RATIO 0.5 (0.8-2.0); ANION GAP 11.7 mmol/L (8-16); CALCIUM 7.8 mg/dL (8.4-10.2); CREATININE, SERUM 2.33 mg/dL (0.72-1.25); POTASSIUM 4.7 mmol/L (3.5-5.1)
--- NOTE | 2019-10-21 05:28 | Diagnostic Imaging Report ---
EXAMINATION: CHEST SINGLE (PORTABLE) INDICATION: ^sob ^[id number] ^0500 ^Y COMPARISON: None FINDINGS: AP view TUBES and LINES: None. LUNGS: Low lung volumes. Ill-defined left lower lobe retrocardiac airspace opacity. PLEURA: No pleural effusion or pneumothorax. HEART AND MEDIASTINUM: The cardiac silhouette is accentuated by low lung volumes and portable technique. BONES AND SOFT TISSUES: No acute osseous lesion. Soft tissues are unremarkable. UPPER ABDOMEN: No free air under the diaphragm. IMPRESSION: Study limited by portable technique. Ill-defined retrocardiac airspace opacity which may reflect left lower lobe pneumonia. Follow-up imaging with dedicated AP and lateral chest radiographs are recommended. Signed by: Eduard Cornelius MD on 10/21/2019 5:25 AM
--- NOTE | 2019-10-21 06:25 | Diagnostic Imaging Report ---
EXAM: CT Chest WITHOUT contrast INDICATION: ^eval changes on cxr ^[id number] ^0600 ^YChest pain, abnormal chest x-ray COMPARISON: Chest x-ray 10/21/2019 TECHNIQUE: Chest was scanned utilizing a multidetector helical scanner from the lung apex through the level of the adrenal glands without administration of IV contrast. Absence of intravenous contrast decreases sensitivity for detection of lymphadenopathy and vascular pathology. Coronal and sagittal reformations were obtained. Routine protocol was performed. IV CONTRAST: None COMPLICATIONS: None RADIATION DOSE: Total DLP: 515 mGy*cm Estimated effective dose: (DLP x 0.014 x size factor) mSv CTDIvol has been reviewed. It is below the limits set by the Radiation Protocol Committee (RPC). Dose modulation, iterative reconstruction, and/or weight based adjustment of the mA/kV was utilized to reduce the radiation dose to as low as reasonably achievable. FINDINGS: LINES/ TUBES: None. LUNGS AND AIRWAYS: 6.1 x 4 cm wedge-shaped left lower lobe lung consolidation that extends to the pleural surface. Smaller ill-defined airspace disease of the right lung base. The upper lobes are clear. PLEURA: The pleural spaces are clear. HEART AND MEDIASTINUM: The heart is mildly enlarged. No gross thoracic adenopathy. Coronary artery calcifications. The thyroid gland is unremarkable. UPPER ABDOMEN: Largely visualized large ascites. BONES: No acute osseous abnormality. SOFT TISSUES: Grossly unremarkable. IMPRESSION: 1. A 6.1 x 4 cm wedge-shaped left lower lobe lung consolidation corresponds to the airspace opacity described on comparison chest radiograph. In this patient without clinical evidence of infection, the consolidation is most suggestive of passive subsegmental atelectasis. Pneumonia may appear identical. 2. Smaller ill-defined right lung base opacities likely represent atelectasis. The upper lobes are clear. 3. Partially visualized large upper abdominal ascites. Signed by: Eduard Cornelius MD on 10/21/2019 6:22 AM
--- NOTE | 2019-10-21 06:44 | NUR ---
Dr Childress at bedside talking with patient regarding lab & CT scan results. Patient has been stable since arrival in ED. Vitals: BP: 118/80, LA: 68, Sats 99 RA, RR 21. Patient for discharge to home. Patient verbalizes understanding regarding follow up check up with PCP. No furhter demands made at this time.
[2019-10-21 06:57] VITALS: BP 118/80
--- NOTE | 2019-10-21 07:00 | NUR ---
pt informed by that to be discharged. pt states that "no no dont discharge me, i neeed the fluid out. i will just come back later." dr salas informed. back to room to speak c patient. pt informed that vs stable, that does not meet admission criteria. pt noted upset and states that "this just keeps happening."
--- NOTE | 2019-10-21 07:56 | NUR ---
called , Buffy Barkley, verified that she was home to receive patient.
== END 2019-10-21 09:00 | disposition home or self-care (01) ==
LOC: ER 04:38
DX: R06.09 Other forms of dyspnea (principal); R18.8 Other ascites; K74.60 Unspecified cirrhosis of liver; B19.20 Unspecified viral hepatitis C without hepatic coma; I10 Essential (primary) hypertension; E11.65 Type 2 diabetes mellitus with hyperglycemia
CPT/HCPCS: 36415; 71045; 71250; 80053; 85025; 85610; 85730; 99284

== ENCOUNTER → 2019-10-24 | Outpatient (CLI) | payer OTHER ==
[~2019-10-24] MED LIST changes: +ALBUMIN 25% 12.5GM 50ML 100 ML IV ONE; +ALBUMIN 25% 12.5GM 50ML 200 ML IV ONE
--- NOTE | 2019-10-24 16:14 | Diagnostic Imaging Report ---
PROCEDURE: Ultrasound-guided paracentesis Procedural Personnel Attending physician(s): Silvana Padgett MD Pre-procedure diagnosis: Ascites Post-procedure diagnosis: Unchanged Indication: Ascites with pain or pressure symptoms Additional clinical history: None Complications: No immediate complications. IMPRESSION: Ultrasound[place] [address] mL of serous fluid. Plan: Resume care by clinical team. PROCEDURE SUMMARY: - Limited abdominal ultrasound - Ultrasound-guided paracentesis - Additional procedure(s): None PROCEDURE DETAILS: Pre-procedure Consent: Informed consent for the procedure including risks, benefits and alternatives was obtained and time-out was performed prior to the procedure. Preparation: The site was prepared and draped using maximal sterile barrier technique including cutaneous antisepsis. Anesthesia/sedation Level of anesthesia/sedation: None Initial abdominal ultrasound Initial abdominal ultrasound was performed. Findings: Large ascites. A safe window for paracentesis was identified. Paracentesis Local anesthesia was administered. The peritoneal cavity was accessed and fluid return confirmed position. Ascites was drained. The catheter was then removed, and a sterile bandage was applied. Paracentesis access technique: Real-time ultrasound guidance. Catheter placed: 5Fr Yueh Post-drainage ultrasound: Moderate ascites Additional Details Additional description of procedure: None Equipment details: None Specimens removed: Abdominal fluid Estimated blood loss (mL): Minimal (<10cc) Standardized report: [email or web address] Attestation Signer name: Silvana Padgett MD I attest that I was present for the entire procedure. I reviewed the stored images and agree with the report as written. Signed by: Silvana Padgett MD on 10/24/2019 4:11 PM
== END ==
LOC: US 11:55
DX: R18.8 Other ascites (principal)
CPT/HCPCS: 49083; C1729

== ENCOUNTER 2019-10-26 12:44 | Inpatient (IN) | payer OTHER ==
[~2019-10-26] VITALS: Ht 188 cm; Wt 122.9 kg
[~2019-10-26 12:44] MED LIST changes: -ALBUMIN 25% 12.5GM 50ML 100 ML IV ONE; -ALBUMIN 25% 12.5GM 50ML 200 ML IV ONE
[2019-10-26] MEDS ORDERED: ONDANSETRON HCL INJ 2MG/ML 2ML 2 MG/ML VIAL IV NR (13:00)
[2019-10-26 13:21] LABS: BASOPHILS % 0.7 % (0.0-1.0); EOSINOPHILS # (AUTO) 0.3 (0.0-0.4); EOSINOPHILS % 7.1 % (0.0-6.0); HEMATOCRIT 21.1 % (38.2-49.6); LYMPHOCYTES # (AUTO) 0.3 (1.0-3.2); LYMPHOCYTES % 6.7 % (18.0-39.1); MEAN CORPUSCULAR HEMOGLOBIN 31.3 pg (28-32); MEAN CORPUSCULAR HGB CONC 33.2 g/dL (31-35); MEAN CORPUSCULAR VOLUME 94.2 fL (81-99); MONOCYTES # (AUTO) 0.4 (0.2-0.8); NEUTROPHILS # (AUTO) 3.2 (2.1-6.9); NEUTROPHILS % 76.3 % (38.7-80.0); PLATELET COUNT 85 x10e3/uL (140-360); RED BLOOD COUNT 2.24 x10e6/uL (4.3-5.7); RED CELL DISTRIBUTION WIDTH 16.2 % (11.7-14.4)
[2019-10-26 13:29] LABS: INR 1.24; PROTHROMBIN TIME 16.4 seconds (11.9-14.5)
[2019-10-26 13:30] LABS: PARTIAL THROMBOPLASTIN TIME 33.7 seconds (23.8-35.5)
--- NOTE | 2019-10-26 13:36 | NUR ---
call placed to DINA; informing her of the need to orange picking supervisor the soiled linens that her came to the ER wrapped in
[2019-10-26 13:40] LABS: ALBUMIN 2.3 g/dL (3.5-5.0); ALBUMIN/GLOBULIN RATIO 0.6 (0.8-2.0); CREATININE, SERUM 2.18 mg/dL (0.72-1.25); MAGNESIUM 2.1 MG/DL (1.3-2.1)
[2019-10-26] MEDS ORDERED: VANCOMYCIN 1GM/NS 250 ML 250 ML IV ONE (13:45)
[2019-10-26 13:46] LABS: CREATINE KINASE MB 3.5 ng/mL (0-5.0)
[2019-10-26 14:05] LABS: B-TYPE NATRIURETIC PEPTIDE2 63.2 pg/mL (0-100)
[2019-10-26] MEDS: CEFEPIME 1GM/NS 0.9% 50 ML 50 ML IV SCH (14:14)
--- NOTE | 2019-10-26 14:23 | Diagnostic Imaging Report ---
Examination: Single AP view of the chest. COMPARISON: CT chest 10/21/2019 INDICATION: Shortness of breath DISCUSSION: Patchy retrocardiac and right lower lung airspace opacities are similar to chest CT. No new consolidation. Stable enlargement of the cardiac silhouette. No overt pulmonary edema. No acute osseous abnormality. IMPRESSION: Stable bibasilar opacities, atelectasis versus infection as discussed on comparison CT. Signed by: Dr. Piyush Marcelino M.D. on 10/26/2019 2:19 PM
[2019-10-26 16:10] VITALS: BP 153/58
--- NOTE | 2019-10-26 16:10 | NUR ---
PATIENT RECEIVED FRO ER PER STRETCHER. ALERT AND VERBALLY RESPONSIVE, DENIED PAIN AT THIS TIME. SKIN WARM AND DRY TO TOUCH, RESPIRATION EVEN AND UNLABORED; O2 IN PLACE VIA N/C, ABDOMEN LARGE. ROUND. AND DISTENDED. EDEMA TO SCROTUM AND LEFT FOOT. TELEMETRY BOX [address] BED IN LOWER POSITION, CALL LIGHT AT REACH. INSTRUCTED TO CALL FOR ASSISTANCE NEEDED.
[2019-10-26 16:58] VITALS: BP 152/58
[2019-10-26 20:24] VITALS: BP 154/57
--- NOTE | 2019-10-26 20:44 | NUR ---
REPORT GIVEN TO ONCOMING NURSE, PATIENT RESTING IN BED WITH HOB SLIGHTLY ELEVATED, ABDOMEN VERY DISTENDED, INSTRUCTED PATIENT ON HIS DIET ORDER DUE TO HE STATED HE RECEIVED A REGULAR DIET EARLIER FROM THE PRIOR SHIFT. PATIENT AGREED TO THE BROTH, CALL LIGHT REMAIN IN REACH.
--- NOTE | 2019-10-26 20:45 | NUR ---
patient received awake, alert, lying quietly in bed. vss. no c/o pain noted. patient frequently requesting food. patient instructed of clear liquid diet. pm assessment complete. patient instructed to call for assistance when needed.
[2019-10-26 21:34] VITALS: BP 154/57
--- NOTE | 2019-10-26 23:15 | NUR ---
Second cardiac markers drawn and sent to lab at this time.
[2019-10-27] VITALS (8 sets, daily range): BP systolic 108–153; BP diastolic 58–86
--- NOTE | 2019-10-27 01:30 | NUR ---
consent obtained for paracentesis and placed on patients chart at this time.
[2019-10-27] MEDS: CEFEPIME 1GM/NS 0.9% 50 ML 50 ML IV SCH ×2 (01:36→14:21)
--- NOTE | 2019-10-27 03:00 | NUR ---
Dr. Hinton here to see patient. he was made aware of hh 7.0/21.1 will see lab results this morning and then order blood transfusion.
[2019-10-27] MEDS ORDERED: LACTULOSE SYRUP 20 GM/30 ML UDC PO PRN (03:30)
[2019-10-27] MEDS ORDERED: SODIUM CHLORIDE 0.9% 250ML 250 ML ONE (03:30)
[2019-10-27 06:26] LABS: BASOPHILS % 0.3 % (0.0-1.0); EOSINOPHILS # (AUTO) 0.3 (0.0-0.4); EOSINOPHILS % 8.5 % (0.0-6.0); LYMPHOCYTES # (AUTO) 0.3 (1.0-3.2); LYMPHOCYTES % 7.6 % (18.0-39.1); MEAN CORPUSCULAR HEMOGLOBIN 31.6 pg (28-32); MEAN CORPUSCULAR HGB CONC 33.5 g/dL (31-35); MEAN CORPUSCULAR VOLUME 94.3 fL (81-99); MONOCYTES # (AUTO) 0.3 (0.2-0.8); MONOCYTES % 8.5 % (4.4-11.3); NEUTROPHILS # (AUTO) 2.6 (2.1-6.9); NEUTROPHILS % 73.4 % (38.7-80.0); PLATELET COUNT 83 x10e3/uL (140-360); RED BLOOD COUNT 2.12 x10e6/uL (4.3-5.7); RED CELL DISTRIBUTION WIDTH 16.1 % (11.7-14.4)
[2019-10-27 06:30] LABS: HEMOGLOBIN 6.7 g/dL (14.0-18.0)
[2019-10-27 06:43] LABS: INR 1.19; PROTHROMBIN TIME 15.9 seconds (11.9-14.5)
[2019-10-27] MEDS ORDERED: SODIUM CHLORIDE 0.9% 250ML 250 ML IV ONE ×2 (06:45→11:00)
[2019-10-27] MEDS ORDERED: FUROSEMIDE INJ 10 MG/ML 2 ML VIAL IV ONE ×2 (06:45→12:00)
[2019-10-27 06:51] LABS: ALBUMIN 2.2 g/dL (3.5-5.0); ALBUMIN/GLOBULIN RATIO 0.6 (0.8-2.0); ANION GAP 11.2 mmol/L (8-16); CALCIUM 7.7 mg/dL (8.4-10.2); CREATININE, SERUM 1.96 mg/dL (0.72-1.25); POTASSIUM 5.2 mmol/L (3.5-5.1)
[2019-10-27 07:21] LABS: CREATINE KINASE MB 4.9 ng/mL (0-5.0)
--- NOTE | 2019-10-27 07:30 | NUR ---
PATIENT IN BED RESTING WITH EYES CLOSED, NO DISTRESS NOTED. REMAINS NPO FOR A PROCEDURE. BED IN LOWER POSITION, CALL LIGHT AT REACH.
[2019-10-27 07:56] LABS: FERRITIN 627.47 ng/mL (21.81-274.66)
--- NOTE | 2019-10-27 08:16 | NUR ---
CALL RECEIVED FROM LAB THAT BLOOD IS READY, BUT PATIENT WANT TO HAVE THE PARACENTESIS DONE BEFORE BLOOD TRANSFUSION.
[2019-10-27] MEDS ORDERED: LACTULOSE SYRUP 20 GM/30 ML UDC PO ONE (08:30)
[2019-10-27] MEDS ORDERED: SOD POLYSTYRENE SULFONATE SUSP 15 GM/60 ML BTL PO ONE (08:30)
[2019-10-27 08:36] LABS: ANISOCYTOSIS SLIGHT; EOSINOPHILS % (MANUAL) 5 % (0-7); LYMPHOCYTES % (MANUAL) 6 % (19-48); MONOCYTES % (MANUAL) 3 % (3.4-9.0); NEUTROPHILS % (MANUAL) 86 % (40-74); OVALOCYTES FEW
[2019-10-27 08:37] LABS: ELLIPTOCYTE, RBC SLIGHT; PLATELET ESTIMATE SLIGHTLY DECREASED; PLATELET MORPHOLOGY COMMENT NORMAL; RBC MORPHOLOGY COMMENT NORMAL
[2019-10-27] MEDS: RIFAXIMIN 200 MG TAB PO SCH ×2 (09:00→17:21)
[2019-10-27] MEDS ORDERED: ALBUMIN 25% 12.5GM 50ML 100 ML IV ONE ×2 (09:10→10:04)
--- NOTE | 2019-10-27 09:22 | NUR ---
PATIENT OFF UNIT FOR A PROCEDURE.
--- NOTE | 2019-10-27 09:50 | NUR ---
Pt out of room and no family at bedside. A card was left at the bedside to indicate a missed visit from a member of the Spiritual Care team and to inform the pt and family of the availability of a Product Support Rep 24 hours a day/7 days a week. A professor of education will follow up as able. JOANIE RUBIN Product Support Rep Spiritual Care Department O: [phone]
--- NOTE | 2019-10-27 11:18 | NUR ---
PATIENT BACK TO UNIT FROM A PROCEDURE. ALERT AND VERBALLY RESPONSIVE. DENIED PAIN AT THIS TIME. REPORT RECEIVED FROM IR STAFF. PATIENT HAD A PARACENTESIS WITH 50718 ML REMOVED. V/S 97.3-82-19-108/61 AND 96% ON RA.
--- NOTE | 2019-10-27 11:37 | Diagnostic Imaging Report ---
PROCEDURE: Ultrasound-guided paracentesis Procedural Personnel Attending physician(s): Silvana Padgett MD Pre-procedure diagnosis: Ascites Post-procedure diagnosis: Unchanged Indication: Ascites with pain or pressure symptoms Additional clinical history: None Complications: No immediate complications. IMPRESSION: Ultrasound[place] [address] mL of serous fluid. Plan: Resume care by clinical team. PROCEDURE SUMMARY: - Limited abdominal ultrasound - Ultrasound-guided paracentesis - Additional procedure(s): None PROCEDURE DETAILS: Pre-procedure Consent: Informed consent for the procedure including risks, benefits and alternatives was obtained and time-out was performed prior to the procedure. Preparation: The site was prepared and draped using maximal sterile barrier technique including cutaneous antisepsis. Anesthesia/sedation Level of anesthesia/sedation: None Initial abdominal ultrasound Initial abdominal ultrasound was performed. Findings: Large ascites. A safe window for paracentesis was identified. Paracentesis Local anesthesia was administered. The peritoneal cavity was accessed and fluid return confirmed position. Ascites was drained. The catheter was then removed, and a sterile bandage was applied. Paracentesis access technique: Real-time ultrasound guidance. Catheter placed: 5Fr Yueh Post-drainage ultrasound: Moderate ascites Additional Details Additional description of procedure: None Equipment details: None Specimens removed: Abdominal fluid Estimated blood loss (mL): Minimal (<10cc) Standardized report: [email or web address] Attestation Signer name: Silvana Padgett MD I attest that I was present for the entire procedure. I reviewed the stored images and agree with the report as written. Signed by: Silvana Padgett MD on 10/27/2019 11:34 AM
--- NOTE | 2019-10-27 13:25 | NUR ---
BLOOD TRANSFUSION STARTED ORDERED. STAYED WITH PATIENT FOR THE FIRST 15 MINUTES, NO ADVERSE REACTION NOTED. WILL CLOSELY MONITOR.
--- NOTE | 2019-10-27 13:34 | NUR ---
SPOKE WITH PT ABOUT SNF REFERRAL, SPOKE WITH HIS DINA THEY AGREED [facility], SINGED CHOICE. LEFT COVID FORM ON CHART FOR MD SIGNATURE AND WILL NEED [facility] ND P WHEN COMPLETED. WILL COMPLETE THE PASRR AND RTF WHEN GET H AND P.
--- NOTE | 2019-10-27 15:20 | Consultation ---
DATE OF CONSULTATION: 10/27/2019 HISTORY OF PRESENT ILLNESS: A 54-year-old gentleman, who has underlying history of cirrhosis of liver, portal hypertension, secondary to alcoholism is currently on a liver transplant list at [facility], comes about on a weekly basis for paracentesis. Presented with increasing abdominal distention. He is aware that he has had prior kidney insufficiency. He follows up with Dr. Weiner in the office. He currently is awake, alert, just came back from Radiology, had large volume paracentesis done about 12 L removed. He has no apparent respiratory distress. Denies fever and chills. He is due to get 2 units of packed RBC. He denies any problems passing urine. LABORATORY DATA: Labs show white count 3.5, hemoglobin 6.7[place] [address]. He is going to furthermore had labs done earlier today which showed sodium of 130, potassium 5.2, bicarbonate 17. BUN 49, creatinine 1.96, calcium 7.7, albumin 2.2. Total bilirubin 0.8. He had a coronavirus PCR done. There was none detected. ALLERGIES: HE HAS NO DRUG ALLERGIES. MEDICATIONS: He received Kayexalate and lactulose earlier. He is on: 1. Rifaximin 550 mg p.o. b.i.d. 2. Received one time dose of vancomycin. 3. Cefepime 1 g IV q.12. 4. Due to get some IV albumin and packed RBC. SOCIAL HISTORY: Does not smoke or drink. PAST MEDICAL HISTORY: Significant for cirrhosis of liver with portal hypertension, hepatosplenomegaly, recurrent paracentesis, possible chronic renal insufficiency. PHYSICAL EXAMINATION: GENERAL: The patient is found to be awake, alert, oriented x3, lying supine, in no apparent distress. VITAL SIGNS: Blood pressure of 108/61, pulse rate 82, afebrile, oxygen saturation 96%. HEAD AND NECK: Cornea clear. Oral mucosa moist. LUNGS: Some decreased air entry both bases. Scattered rales. HEART: S1 and S2 audible. ABDOMEN: Distended, soft, nontender. Flanks full. Mild scrotal edema. LOWER EXTREMITIES: 1+ ankle edema. IMPRESSION AND PLAN: Cirrhosis, portal hypertension, ascites, [id number] kidney failure most likely. Plan on obtaining kidney ultrasound, spot [id number] ratio, serum uric acid, volume resuscitation, calculate fraction excretion of sodium. Has metabolic acidosis, hyperkalemia, to get Kayexalate, renal diet, lactulose. We will start bicarbonate by mouth. His anemia appears multifactorial. Has possible underlying distal renal tubular acidosis. Normal anion gap. Blood pressure noted. Discussed with RN. MD TULIO Au/CARYNL /[id number]
[2019-10-27] MEDS ORDERED: FUROSEMIDE INJ 10 MG/ML 2 ML VIAL IV PRN (16:30)
[2019-10-27] MEDS: SODIUM BICARBONATE 650 MG TAB PO SCH (17:21)
--- NOTE | 2019-10-27 17:24 | Diagnostic Imaging Report ---
Retroperitoneal ultrasound Indication: Anemia, ascites, acute kidney injury Technique: Select images from retroperitoneal ultrasound provided for interpretation: Comparison: CT chest 10/21/2019. Findings: The right kidney measures 8.7 cm in greatest length. The echotexture is mildly increased. There is no evidence for mass. There is no collecting system dilatation or evidence of obstruction. No renal calculi evident. No adjacent free fluid or fluid collections. The left kidney measures 9.6 cm in greatest length but is poorly visualized. There is no evidence for mass. There is no collecting system dilatation or evidence of obstruction. No renal calculi evident. No adjacent free fluid or fluid collections. Bladder is not visualized. Diffuse abdominal ascites. Survey images of the liver and spleen demonstrate no focal N. [place] T IMPRESSION: 1. Increased echotexture of the right kidney suggestive of medical renal disease. Poor visualization of the left kidney. No hydronephrosis. 2. Diffuse abdominal ascites. Signed by: Dr. Lamine Berger MD on 10/27/2019 5:20 PM
[2019-10-28] VITALS (9 sets, daily range): BP systolic 125–131; BP diastolic 73–87
[2019-10-28] MEDS ORDERED: CYANOCOBALAMIN INJ 1,000 MCG/ML VIAL IM ONE (01:30)
[2019-10-28] MEDS: CEFEPIME 1GM/NS 0.9% 50 ML 50 ML IV SCH ×2 (01:45→15:30)
[2019-10-28] MEDS ORDERED: SODIUM CHLORIDE 0.9% 250ML 250 ML ONE (04:43)
--- NOTE | 2019-10-28 07:54 | NUR ---
upon looking at AUG and cross checking PYXIS and patient's medication bin, the 0130 Vitamin B-12 IM injection, 0145 Cefepime IV and the 0500 Venofer IV were not administered and were not documented on.
[2019-10-28] MEDS ORDERED: CYANOCOBALAMIN INJ 1,000 MCG/ML VIAL IM SCH (09:00)
[2019-10-28] MEDS: MORPHINE SULFATE 2 MG/ML SYR 1ML IV PRN ×4 (09:25→22:21)
[2019-10-28] MEDS: ONDANSETRON HCL INJ 2MG/ML 2ML 2 MG/ML VIAL IV PRN ×3 (09:25→22:21)
[2019-10-28] MEDS: RIFAXIMIN 200 MG TAB PO SCH ×2 (09:26→17:20)
[2019-10-28] MEDS: SODIUM BICARBONATE 650 MG TAB PO SCH ×2 (09:26→17:20)
[2019-10-28 11:27] LABS: BASOPHILS % 0.4 % (0.0-1.0); EOSINOPHILS # (AUTO) 0.3 (0.0-0.4); EOSINOPHILS % 6.6 % (0.0-6.0); HEMATOCRIT 25.4 % (38.2-49.6); HEMOGLOBIN 8.5 g/dL (14.0-18.0); LYMPHOCYTES # (AUTO) 0.3 (1.0-3.2); MEAN CORPUSCULAR HEMOGLOBIN 31.3 pg (28-32); MEAN CORPUSCULAR HGB CONC 33.5 g/dL (31-35); MEAN CORPUSCULAR VOLUME 93.4 fL (81-99); MONOCYTES # (AUTO) 0.3 (0.2-0.8); MONOCYTES % 7.3 % (4.4-11.3); NEUTROPHILS # (AUTO) 3.6 (2.1-6.9); PLATELET COUNT 80 x10e3/uL (140-360); RED BLOOD COUNT 2.72 x10e6/uL (4.3-5.7); RED CELL DISTRIBUTION WIDTH 16.1 % (11.7-14.4)
--- NOTE | 2019-10-28 11:34 | NUR ---
GOT H AND P, STILL NEED PT NOTES AND COVID FORM SIGNED. FAXED CLINICALS TO FACILITY, PENDING AUTH. COMPLETED RTF AND PUT WITH PACKET
[2019-10-28 11:47] LABS: ALBUMIN 2.6 g/dL (3.5-5.0); ALBUMIN/GLOBULIN RATIO 0.7 (0.8-2.0); ANION GAP 11.1 mmol/L (8-16); CALCIUM 7.8 mg/dL (8.4-10.2); CREATININE, SERUM 2.15 mg/dL (0.72-1.25); MAGNESIUM 1.9 MG/DL (1.3-2.1); POTASSIUM 4.1 mmol/L (3.5-5.1)
--- NOTE | 2019-10-28 11:50 | NUR ---
attempted to call Dr. Hinton with lab results, no call back
[2019-10-28] MEDS ORDERED: ALBUMIN 5% 250ML 500 ML IV ONE (13:15)
[2019-10-28] MEDS ORDERED: ALBUMIN 5% 0.05 GM/ML BTL IV ONE (13:15)
--- NOTE | 2019-10-28 14:10 | NUR ---
WOUND CARE CONSULT FOR 54 YO MALE HX OF ANEMIA,CIRRHOSIS,ACITIES KEE 15 ON MODERATE PUP STATUS AND INTERVENTIONS AND ALTERNATING PRESSURE MATTRESS LABS: WBC-3.53 HGB_6.7 GLUCOSE-183 SKIN ASSESSMENT COMPLETE PATIENT PRESENTS WITH SACRAL STAGE 2 ULCERATION MEASURES 2CM X2CM X0.1CM RECOMMENDATIONS: NURSING TO CONTINUE TO MAINTAIN MODERATE PUP STATUS AND INTERVENTIONS AND ALTERNATING PRESSURE MATTRESS NURSING TO CONTINUE TO ASSIST PATIENT OUT OF BED FOR MEALS AND MUCH TOLERATED NURSING TO CONTINUE TO ASSIST PATIENT NEEDED WITH MEALS AND NUTRITIONAL SUPPLEMENTS TO ENSURE PROPER REQUIREMENTS FOR HEALING NURSING TO CONTINUE TO OFFLOAD FEET AND HEELS NEEDED WITH PILLOW SUSPENSION WHEN IN BED NURSING TO CLEAN SACRAL STAGE 2 ULCERATION WITH NORMAL SALINE DAILY AND APPLY VENELEX OINTMENT AND ALLEVYN FOAM DRESSING Addendum: 10/28/19 at 1414 by Carlos Vincent RN Amended: Links added.
[2019-10-28] MEDS: BALSAM PERU/CASTOR OIL 60 GM OINT...G. TP SCH (16:22)
[2019-10-28] MEDS: IRON SUCROSE 100 MG in SODIUM CHLORIDE 0.9% 100 ML 100 ML IV SCH (22:21)
[2019-10-29] MEDS: MORPHINE SULFATE 2 MG/ML SYR 1ML IV PRN ×2 (02:45→11:58)
[2019-10-29] MEDS: ONDANSETRON HCL INJ 2MG/ML 2ML 2 MG/ML VIAL IV PRN ×4 (02:45→22:50)
[2019-10-29] MEDS: CEFEPIME 1GM/NS 0.9% 50 ML 50 ML IV SCH ×2 (02:58→13:57)
[2019-10-29 04:00] VITALS: BP 124/87
[2019-10-29] MEDS: IRON SUCROSE 100 MG in SODIUM CHLORIDE 0.9% 100 ML 100 ML IV SCH (06:09)
[2019-10-29 07:35] VITALS: BP 124/80
[2019-10-29 07:54] VITALS: BP 124/80
[2019-10-29] MEDS: CYANOCOBALAMIN INJ 1,000 MCG/ML VIAL IM SCH (08:11)
[2019-10-29] MEDS: RIFAXIMIN 200 MG TAB PO SCH (08:11)
[2019-10-29] MEDS: SODIUM BICARBONATE 650 MG TAB PO SCH ×3 (08:11→21:00)
[2019-10-29] MEDS: BALSAM PERU/CASTOR OIL 60 GM OINT...G. TP SCH (08:11)
--- NOTE | 2019-10-29 11:01 | NUR ---
FAXED PT NOTE TO [facility]
[2019-10-29 11:39] VITALS: BP 140/87
[2019-10-29] MEDS ORDERED: ALBUMIN 25% 25GM 100ML 0.25 GM/ML BTL IV SCH (12:00)
[2019-10-29] MEDS: ALBUMIN 25% 25GM 100ML 100 ML IV SCH ×3 (12:00→23:54)
[2019-10-29] MEDS: FUROSEMIDE INJ 10 MG/ML 4 ML VIAL IV SCH ×3 (12:00→23:54)
--- NOTE | 2019-10-29 14:13 | NUR ---
transportation at bedside to take patient for paracentesis
--- NOTE | 2019-10-29 15:48 | NUR ---
talked with Savi in Radiology, the pt had 18,550 cc pulled in paracentesis
--- NOTE | 2019-10-29 15:50 | NUR ---
spoke with Yolette MUNIZ, room at [facility] is still pending
--- NOTE | 2019-10-29 16:00 | NUR ---
CALLED FACILITY NO AUTH OF YET.
--- NOTE | 2019-10-29 16:14 | Diagnostic Imaging Report ---
PROCEDURE: Ultrasound-guided paracentesis Procedural Personnel Attending physician(s): Silvana Padgett MD Pre-procedure diagnosis: Ascites Post-procedure diagnosis: Unchanged Indication: Ascites with pain or pressure symptoms Additional clinical history: None Complications: No immediate complications. IMPRESSION: Ultrasound[place] [address] mL of serous fluid. Plan: Resume care by clinical team. PROCEDURE SUMMARY: - Limited abdominal ultrasound - Ultrasound-guided paracentesis - Additional procedure(s): None PROCEDURE DETAILS: Pre-procedure Consent: Informed consent for the procedure including risks, benefits and alternatives was obtained and time-out was performed prior to the procedure. Preparation: The site was prepared and draped using maximal sterile barrier technique including cutaneous antisepsis. Anesthesia/sedation Level of anesthesia/sedation: None Initial abdominal ultrasound Initial abdominal ultrasound was performed. Findings: Large ascites. A safe window for paracentesis was identified. Paracentesis Local anesthesia was administered. The peritoneal cavity was accessed and fluid return confirmed position. Ascites was drained. The catheter was then removed, and a sterile bandage was applied. Paracentesis access technique: Real-time ultrasound guidance. Catheter placed: 5Fr Yueh Post-drainage ultrasound: No visible ascites Additional Details Additional description of procedure: None Equipment details: None Specimens removed: Abdominal fluid Estimated blood loss (mL): Minimal (<10cc) Standardized report: [email or web address] Attestation Signer name: Silvana Padgett MD I attest that I was present for the entire procedure. I reviewed the stored images and agree with the report as written. Signed by: Silvana Padgett MD on 10/29/2019 4:11 PM
[2019-10-29] MEDS: MORPHINE SULFATE INJ 4 MG/ML INJ 1ML IV PRN ×2 (17:30→22:50)
[2019-10-29] MEDS: RIFAXIMIN 550 MG TABLET PO SCH (17:34)
--- NOTE | 2019-10-29 19:03 | NUR ---
unable to collect urine for labs, notified Dr. Soler.
--- NOTE | 2019-10-29 19:08 | NUR ---
patient received awake, alert, lying quietly in bed. vss. no c/o pain noted. pm assessment complete. patient instructed to call for assistance when needed.
[2019-10-29 20:00] VITALS: BP 113/73
--- NOTE | 2019-10-29 22:50 | NUR ---
new iv #22 placed to right upper arm x 2 sticks. patient medicated for with morphine 4mg and zofran 4mg ivp for c/o abd pain. patient frequently asking for fluids to drink. patient educated on his fluid intake. patient verbalizes understanding of this but continues to ask for fluids.
[2019-10-30] VITALS (7 sets, daily range): BP systolic 103–121; BP diastolic 56–74
[2019-10-30] MEDS: CEFEPIME 1GM/NS 0.9% 50 ML 50 ML IV SCH ×2 (01:45→14:30)
[2019-10-30] MEDS: ONDANSETRON HCL INJ 2MG/ML 2ML 2 MG/ML VIAL IV PRN (03:00)
[2019-10-30] MEDS: MORPHINE SULFATE INJ 4 MG/ML INJ 1ML IV PRN (03:00)
--- NOTE | 2019-10-30 03:00 | NUR ---
patient medicated with morphine 4mg and zofran 4mg ivp for c/o abd pain 12/02. patient continues to request milk, soda, water and juices to drink despite education given on fluid intake.
[2019-10-30] MEDS: FUROSEMIDE INJ 10 MG/ML 4 ML VIAL IV SCH ×3 (05:00→18:00)
[2019-10-30] MEDS: ALBUMIN 25% 25GM 100ML 100 ML IV SCH ×3 (05:00→18:00)
--- NOTE | 2019-10-30 07:00 | NUR ---
Received bedside report. pt is alert sitting up in bed, no s/s of distress. call light within reach instructed pt to call RN for help. pt is asking for 2 milks, informed patient that the doctor wants him to limit is fluid intake, pt stated that he only had 1 milk last night, however, night RN reported that the pt requested multiple milks and juice throughout the night along with crackers and sandwiches. Night RN documented PO fluid intake. pt has been noncompliant and has bring him fast food.
--- NOTE | 2019-10-30 09:35 | NUR ---
Dr. Soler at the bedside and informed patient he will be on 1.2L fluid restriction. received orders from doctor
[2019-10-30] MEDS ORDERED: SODIUM CHLORIDE 0.9% 250ML 250 ML ONE (10:05)
[2019-10-30] MEDS: IRON SUCROSE 100 MG in SODIUM CHLORIDE 0.9% 100 ML 100 ML IV SCH (10:09)
[2019-10-30] MEDS: CYANOCOBALAMIN INJ 1,000 MCG/ML VIAL IM SCH (10:09)
[2019-10-30] MEDS: SODIUM BICARBONATE 650 MG TAB PO SCH ×2 (10:09→15:00)
[2019-10-30] MEDS: RIFAXIMIN 550 MG TABLET PO SCH ×2 (10:09→17:00)
[2019-10-30] MEDS: BALSAM PERU/CASTOR OIL 60 GM OINT...G. TP SCH (10:09)
[2019-10-30 10:12] LABS: ANION GAP 12.8 mmol/L (8-16); CALCIUM 7.5 mg/dL (8.4-10.2); CREATININE, SERUM 2.28 mg/dL (0.72-1.25); POTASSIUM 4.8 mmol/L (3.5-5.1)
--- NOTE | 2019-10-30 10:26 | NUR ---
Dr. Soler wanted to be called with BMP results. unable to get in contact with Dr. Soler
--- NOTE | 2019-10-30 11:16 | NUR ---
pt had fast food delivered with [address] Hinton is here and was informed. educated patient again that he is on fluid restriction and he can not have more than 1200ml of fluids
--- NOTE | 2019-10-30 15:55 | NUR ---
Nutrition Intervention Note RD Recommendation(s) for Physician: - Recommend 2 gm Na diet restriction, fluid restriction per MD. - Recommend renal MVI for adequacy. - Pt meets criteria for severe protein calorie malnutrition. Plan of Care: RD following, monitoring for tolerance and adequacy - Diet education 10/29 Nutrition reason for involvement: PU on admit RD Assessment 10/29: 54 YOM admitted for ascites requiring chronic paracentesis with hx of cirrhosis, currently on liver transplant list at [facility]. Pt seen today per stage II PU to sacrum. Pt discussed during am MDR, s/p paracentesis yesterday with 18,550 cc fluid removal and non-compliance with fluid restriction since admit. Pt with good appetite and intake, denies GI distress. Pt appears severely malnourished due to chronic disease state. Reiterated fluid restriction with pt, pt reports good compliance- noted very large fast food drink in room. Per RN pt ordered fast food with large drinks to be delivered. Pt with no questions or concerns at time of visit. Pt pending [facility]. Will continue to monitor. Principal Problems/Diagnoses: anemia, ascites, cirrhosis, hepatic encephalopathy PMH: cirrhosis 2/2 ETOH, hepatosplenomegaly, portal HTN, recurrent paracentesis GI: LBM 10/27 Skin: stage II PU sacrum Labs: 10/29: Na 133, K 4.8, BUN 59, Cr 2.28, Gluc 123, POC Gluc 124-201 Meds: abx, IV albumin, lasix, rifaxamin, Na bicarb, vitamin B12, morphine, zofran Ht: 74 in Wt: 271 lb BMI: 34.8 kg/m2 IBW: 190 lb Malnutrition Evaluation (10/30/19) The patient meets criteria for unspecified SEVERE protein-calorie malnutrition. Energy intake: Good po intake Weight loss: No wt loss Fat loss: Moderate, hollowing of eyes Muscle loss: Severe, unable to evaluate Supporting Evidence: Fluid accumulation: Severe- chronic ascites Functional Status: not assessed Nutrition Prescription (Diet Order): 1800 ADA Estimated Nutritional Needs: calories/day (30-35 kcal/kg IBW) g protein/day (1-1.5 g pro/kg IBW) Diet Adequacy: Meeting protein needs, Meeting calorie needs Diet Tolerance: tolerating po Diet Education Needs Assessment: Diet education indicated and patient agreeable. Learner(s): pt Barriers: none Cultural/Language Modifications: none Readiness: ready Method: discussion Topics: fluid restriction Understanding/Compliance: poor compliance Nutrition Care Level: Mod Nutrition Diagnosis: Chronic disease associated malnutrition related to cirrhosis as evidenced by muscle wasting and chronic paracentesis. Goal: Patient will meet 75-100% of estimated needs by follow up Progress: N/A Interventions: -Mineral, fluid modified diet, Survival information, Recommended Modifications, Collaboration with other providers Monitoring/Evaluation: -Total energy intake, Total protein intake, Prescription medication, Modified diet, Weight change, Level of knowledge, Self management Signed: Radha Blanchard RD, LD, CNSC
--- NOTE | 2019-10-30 15:56 | NUR ---
CORRECTION FACILITY DISCHARGE INFORMATION PATIENT HAS BEEN ACCEPTED TO: NAME: [facility] ADDRESS:[id number] [facility] ACCEPTING GUM ROLLING MACHINE OPERATOR: MIKA VILLA MD: TYLER ROOM: 113 NURSE CALL REPORT TO: [phone] IMM SIGNED AND OBTAINED (if applicable): NA THE FOLLOWING DOCUMENTS MUST ACCOMPANY PATIENT FOR TRANSFER: COPIED CHART: PACKET GIVEN TO ROMMEL
--- NOTE | 2019-10-30 17:04 | NUR ---
called report to JOSE Andino at [facility]. Unit sec to call ambulance for transfer
--- NOTE | 2019-10-30 17:13 | NUR ---
MOT was signed with patient
--- NOTE | 2019-10-30 18:51 | NUR ---
pt told the [employer]IST the he fell and hit his knee. RN assessed patient, he stated that he was using the urinal on the edge of the bed and wanted to move the walker, the walker was unsteady which caused him to loose balance and slide to his knees on the floor. there are no abrasions to the knee and the pt does not c/o pain. the bed alarm is on and the patient was educated again to use the call light and ask for help. Dr. Lydia Hinton notified Addendum: 10/30/19 at 1856 by Chastity Arredondo RN entered on wrong patient
--- NOTE | 2019-10-30 19:08 | NUR ---
patient received awake, alert, lying quietly in bed. no c/o pain noted. patient to [facility]. call little placed within reach. patient instructed to call for assistance when needed.
--- NOTE | 2019-10-30 19:57 | NUR ---
Patient discharged to [facility] via [facility] at this time. vss. no c/o pain noted at time of discharge.
== END 2019-10-30 19:57 | DRG 433 ==
LOC: ER 12:44 → ERHOLD 14:19 → INTOOBSV 14:19 → MED/SURG3 15:46 → OBSVTOIN 10-28 14:19
PROC: 0W9G3ZZ Drainage of Peritoneal Cavity, Percutaneous Approach (ICD-10-PCS; principal; 2019-10-27)
PROC: 30233N1 Transfusion of Nonautologous Red Blood Cells into Peripheral Vein, Percutaneous Approach (ICD-10-PCS; 2019-10-27)
PROC: 0W9G3ZZ Drainage of Peritoneal Cavity, Percutaneous Approach (ICD-10-PCS; 2019-10-29)
DX: K70.31 Alcoholic cirrhosis of liver with ascites (principal); K76.6 Portal hypertension; E87.2 Acidosis; N17.9 Acute kidney failure, unspecified; Z76.82 Awaiting organ transplant status; E87.5 Hyperkalemia; E11.22 Type 2 diabetes mellitus with diabetic chronic kidney disease; I12.9 Hypertensive chronic kidney disease with stage 1 through stage 4 chronic kidney disease, or unspecified chronic kidney disease; N18.3 Chronic kidney disease, stage 3 (moderate); Z79.4 Long term (current) use of insulin; B18.2 Chronic viral hepatitis C; D63.1 Anemia in chronic kidney disease; L89.152 Pressure ulcer of sacral region, stage 2
CPT/HCPCS: 36415; 49083; 71045; 74470; 76770; 80048; 80053; 82140; 82550; 82553; 82607; 82728; 82746; 82948; 83540; 83735; 83880; 84466; 84484; 84550; 85025; 85045; 85610; 85730; 86850; 86900; 86920; 87040; 87070; 87205; 87635; 93005; 97139; 99251; 99284; C1729; G0378; J0692; J1756; J1940; J2270; J2405; J3370; J3420; J7050; P9016; P9045; P9047

== ENCOUNTER → 2019-11-10 | Outpatient (CLI) | payer OTHER ==
[~2019-11-10] MED LIST changes: +ALBUMIN 25% 12.5GM 50ML 200 ML IV ONE
--- NOTE | 2019-11-10 10:29 | Diagnostic Imaging Report ---
Procedure: Ultrasound-guided paracentesis featheredge machine operator: Damion Addison M.D. Pre-operative diagnosis: Ascites Post-operative diagnosis: Ascites Conscious Sedation: None. The patient's heart rate and pulse oximetry were continuously monitored by the IR nurse. Additional Medications: Lidocaine 1% for local anesthesia Estimated blood loss: Less than 1 cc. Specimen: 11,200 cc of clear yellow fluid Implants: None TECHNIQUE/FINDINGS: Informed consent was obtained from the patient and documented in the medical record. The patient was placed in the supine position. Initial ultrasound demonstrated ascites. The right lower abdomen was prepped and draped in standard sterile fashion. 1% lidocaine was infiltrated into the skin and subcutaneous tissues for local anesthesia. Then under continuous sonographic guidance, a 5 Fr catheter was advanced into the peritoneal space. The catheter was connected to vacuum bottle with subsequent evacuation of 11,200 cc of serous fluid. The catheter was removed and sterile dressing was applied. Sample was sent to the lab. The patient tolerated the procedure well. IMPRESSION: Successful ultrasound-guided paracentesis. Signed by: Damion Addison on 11/10/2019 10:26 AM
== END ==
LOC: US 08:20
DX: R18.8 Other ascites (principal)
CPT/HCPCS: 49083